=== PATIENT | male | born 1935 | race Caucasian/White ===

== ENCOUNTER 2017-11-03 23:48 | Inpatient (IN) | payer MEDICARE, BC ==
[2017-11-04] MEDS ORDERED: PIPERACILLIN-TAZOBACTAM 3.375 GM in DEXTROSE/WATER 1 50ML.BAG IVPB STA (00:07)
[2017-11-04] MEDS ORDERED: ACETAMINOPHEN TAB 500 MG TAB PO STA (00:07)
[2017-11-04] MEDS ORDERED: ONDANSETRON 4 MG in SODIUM CHLORIDE 0.9% 50 ML IVPB ONE (00:10)
[2017-11-04] MEDS ORDERED: ONDANSETRON 4 MG/2 ML VIAL IVP STA (00:16)
--- NOTE | 2017-11-04 00:22 | ED ---
General Adult HPI - General Chief complaint: Upper Respiratory Infection Stated complaint: Flu Symptoms Time Seen by Provider: 11/03/17 23:50 Source: patient, family Mode of arrival: wheelchair Limitations: no limitations - History of Present Illness Initial comments: 82 years old male been coughing he had a fever for 102.5 at home today he was shaking he is on a antibiotics for respiratory tract infection he been using Levaquin for last 2 days today he started throwing up he vomited in the ER few times in my presence is current call from his primary care physician that his electrolytes are back she needs to come to the hospital and he was advised to drink some Gatorade. He denies any headache no chest pain no shortness of breath he has been coughing he has no pleuritic chest pain he denies any abdominal pain though he threw up several times no frequency urgency dysuria no symptoms of TIA or CVA. - Related Data Home Medications Medication Instructions Recorded Confirmed Gabapentin [Neurontin] 1 tab PO DAILY 11/03/17 11/03/17 Triamterene-Hctz 37.5-25Mg 1 tab PO DAILY 11/03/17 11/03/17 [Dyazide 37.5-25 Capsule] amLODIPine [Norvasc] 1 tab PO DAILY 11/03/17 11/03/17 glipiZIDE [Glucotrol] 1 tab PO DAILY 11/03/17 11/03/17 Allergies Allergy/AdvReac Type Severity Reaction Status Date / Time No Known Allergies Allergy Verified 11/03/17 23:50 Review of Systems ROS Statement: Those systems with pertinent positive or pertinent negative responses have been documented in the HPI. ROS Other: All systems not noted in ROS Statement are negative. Past Medical History Past Medical History: Diabetes Mellitus, Hypertension History of Any Multi-Drug Resistant Organisms: None Reported Past Surgical History: Back Surgery Past Psychological History: No Psychological Hx Reported Smoking Status: Never smoker Past Alcohol Use History: None Reported Past Drug Use History: None Reported General Exam - General Exam Comments Initial Comments: General: The patient is awake and he has a tremor is consistent with a Parkinson's his GCS is 15, he is hard of hearing Skin: Skin is warm and dry and no rashes or lesions are noted. Eye: Pupils are equal, round and reactive to light, extra-ocular movements are intact; there is normal conjunctiva bilaterally. Ears, nose, mouth and throat: membranes are dry Neck: The neck is supple, there is no tenderness or JVD. Cardiovascular: There is a regular rate and rhythm. No murmur, rub or gallop is appreciated. Respiratory: To auscultation bilateral, decrease breath sounds bilaterally Gastrointestinal: Soft, non-distended, non-tender abdomen without masses or organomegaly noted. There is no rebound or guarding present. Bowel sounds are unremarkable. Back: There is no tenderness to palpation in the midline. There is no obvious deformity. Musculoskeletal: Normal ROM, no tenderness, There is no pedal edema. There is no calf tenderness or swelling. No cords were appreciated. Neurological: CN II-XII intact, Cranial nerves III through XII are intact. There are no obvious motor or sensory deficits. Coordination appears grossly intact. Speech is normal. Psychiatric: Cooperative, appropriate mood & affect, normal judgment. Limitations: no limitations Course Vital Signs 11/03/17 11/04/17 23:50 00:30 Temperature 96.9 F L 99.0 F Pulse Rate 71 Respiratory 18 Rate Blood Pressure 172/76 O2 Sat by Pulse 97 Oximetry EKG is junctional rhythm and fortunately this EKG, also artifacts patient has a Parkinson's any other tremor quite severe during EKG, this artifacts is hard to interpret this EKG no clear ST elevation noticed in this EKG lead V5 and V4 V5 and V6 are within normal range we've and V2 and V3 the normal range having difficulty interpreting lead 3 and lead aVF because of the artifacts Patient's labs are reviewed white count is normal his sodium is 120 and his lactate is 2.2 is positive for the flu a and he'll be getting for so the Tamiflu now, he be admitted considering his dehydration and hyponatremia to Dr. Gregorio's service - Reevaluation(s) Reevaluation #1: Patient had a fever off one or 2.5 at home patient has blood culture and the urine culture , after the cultures patient has been started on empiric antibiotics, will continue the IV normal saline hopefully that will get of the hyponatremia normalized. 11/04/17 01:14 Medical Decision Making - Lab Data Result diagrams: 11/04/17 00:21 11/04/17 00:21 Lab Results 11/04/17 11/04/17 11/04/17 Range/Units 00:21 00:21 00:21 WBC 6.2 (3.8-10.6) k/uL RBC 4.29 L (4.30-5.90) m/uL Hgb 12.7 L (13.0-17.5) gm/dL Hct 35.2 L (39.0-53.0) % MCV 82.0 (80.0-100.0) fL MCH 29.6 (25.0-35.0) pg MCHC 36.1 (31.0-37.0) g/dL RDW 12.1 (11.5-15.5) % Plt Count 196 (150-450) k/uL Neutrophils % 82 % Lymphocytes % 9 % Monocytes % 7 % Eosinophils % 0 % Basophils % 0 % Neutrophils # 5.1 (1.3-7.7) k/uL Lymphocytes # 0.5 L (1.0-4.8) k/uL Monocytes # 0.4 (0-1.0) k/uL Eosinophils # 0.0 (0-0.7) k/uL Basophils # 0.0 (0-0.2) k/uL Hyperchromasia Slight PT (9.0-12.0) sec INR (<1.2) APTT (22.0-30.0) sec Sodium 120 L* (137-145) mmol/L Potassium 3.3 L (3.5-5.1) mmol/L Chloride 82 L (98-107) mmol/L Carbon Dioxide 22 (22-30) mmol/L Anion Gap 16 mmol/L BUN 21 H (9-20) mg/dL Creatinine 0.80 (0.66-1.25) mg/dL Est GFR (MDRD) Af Amer >60 (>60 ml/min/1.73 sqM) Est GFR (MDRD) Non-Af >60 (>60 ml/min/1.73 sqM) Glucose 160 H (74-99) mg/dL Plasma Lactic Acid Rivas 2.2 H* (0.7-2.0) mmol/L Calcium 9.0 (8.4-10.2) mg/dL Total Bilirubin 0.7 (0.2-1.3) mg/dL AST 59 (17-59) U/L ALT 45 (21-72) U/L Alkaline Phosphatase 62 (38-126) U/L Total Protein 7.0 (6.3-8.2) g/dL Albumin 4.2 (3.5-5.0) g/dL Urine Color Urine Appearance (Clear) Urine pH (5.0-8.0) Ur Specific Cedar (1.001-1.035) Urine Protein (Negative) Urine Glucose (UA) (Negative) Urine Ketones (Negative) Urine Blood (Negative) Urine Nitrite (Negative) Urine Bilirubin (Negative) Urine Urobilinogen (<2.0) mg/dL Ur Leukocyte Esterase (Negative) Urine RBC (0-5) /hpf Urine WBC (0-5) /hpf Hyaline Casts (0-2) /lpf Granular Casts (0) /lpf Urine Mucus (None) /hpf Influenza Type A RNA (Not Detectd) Influenza Type B (PCR) (Not Detectd) Group A Strep Rapid (Negative) 11/04/17 11/04/17 11/04/17 Range/Units 00:21 00:21 00:21 WBC (3.8-10.6) k/uL RBC (4.30-5.90) m/uL Hgb (13.0-17.5) gm/dL Hct (39.0-53.0) % MCV (80.0-100.0) fL MCH (25.0-35.0) pg MCHC (31.0-37.0) g/dL RDW (11.5-15.5) % Plt Count (150-450) k/uL Neutrophils % % Lymphocytes % % Monocytes % % Eosinophils % % Basophils % % Neutrophils # (1.3-7.7) k/uL Lymphocytes # (1.0-4.8) k/uL Monocytes # (0-1.0) k/uL Eosinophils # (0-0.7) k/uL Basophils # (0-0.2) k/uL Hyperchromasia PT 10.5 (9.0-12.0) sec INR 1.1 (<1.2) APTT 28.9 (22.0-30.0) sec Sodium (137-145) mmol/L Potassium (3.5-5.1) mmol/L Chloride (98-107) mmol/L Carbon Dioxide (22-30) mmol/L Anion Gap mmol/L BUN (9-20) mg/dL Creatinine (0.66-1.25) mg/dL Est GFR (MDRD) Af Amer (>60 ml/min/1.73 sqM) Est GFR (MDRD) Non-Af (>60 ml/min/1.73 sqM) Glucose (74-99) mg/dL Plasma Lactic Acid Rivas (0.7-2.0) mmol/L Calcium (8.4-10.2) mg/dL Total Bilirubin (0.2-1.3) mg/dL AST (17-59) U/L ALT (21-72) U/L Alkaline Phosphatase (38-126) U/L Total Protein (6.3-8.2) g/dL Albumin (3.5-5.0) g/dL Urine Color Urine Appearance (Clear) Urine pH (5.0-8.0) Ur Specific Cedar (1.001-1.035) Urine Protein (Negative) Urine Glucose (UA) (Negative) Urine Ketones (Negative) Urine Blood (Negative) Urine Nitrite (Negative) Urine Bilirubin (Negative) Urine Urobilinogen (<2.0) mg/dL Ur Leukocyte Esterase (Negative) Urine RBC (0-5) /hpf Urine WBC (0-5) /hpf Hyaline Casts (0-2) /lpf Granular Casts (0) /lpf Urine Mucus (None) /hpf Influenza Type A RNA Detected H (Not Detectd) Influenza Type B (PCR) Not Detected (Not Detectd) Group A Strep Rapid Negative (Negative) 11/04/17 Range/Units 00:42 WBC (3.8-10.6) k/uL RBC (4.30-5.90) m/uL Hgb (13.0-17.5) gm/dL Hct (39.0-53.0) % MCV (80.0-100.0) fL MCH (25.0-35.0) pg MCHC (31.0-37.0) g/dL RDW (11.5-15.5) % Plt Count (150-450) k/uL Neutrophils % % Lymphocytes % % Monocytes % % Eosinophils % % Basophils % % Neutrophils # (1.3-7.7) k/uL Lymphocytes # (1.0-4.8) k/uL Monocytes # (0-1.0) k/uL Eosinophils # (0-0.7) k/uL Basophils # (0-0.2) k/uL Hyperchromasia PT (9.0-12.0) sec INR (<1.2) APTT (22.0-30.0) sec Sodium (137-145) mmol/L Potassium (3.5-5.1) mmol/L Chloride (98-107) mmol/L Carbon Dioxide (22-30) mmol/L Anion Gap mmol/L BUN (9-20) mg/dL Creatinine (0.66-1.25) mg/dL Est GFR (MDRD) Af Amer (>60 ml/min/1.73 sqM) Est GFR (MDRD) Non-Af (>60 ml/min/1.73 sqM) Glucose (74-99) mg/dL Plasma Lactic Acid Rivas (0.7-2.0) mmol/L Calcium (8.4-10.2) mg/dL Total Bilirubin (0.2-1.3) mg/dL AST (17-59) U/L ALT (21-72) U/L Alkaline Phosphatase (38-126) U/L Total Protein (6.3-8.2) g/dL Albumin (3.5-5.0) g/dL Urine Color Yellow Urine Appearance Clear (Clear) Urine pH 6.0 (5.0-8.0) Ur Specific Cedar 1.015 (1.001-1.035) Urine Protein 2+ H (Negative) Urine Glucose (UA) 2+ H (Negative) Urine Ketones 1+ H (Negative) Urine Blood Moderate H (Negative) Urine Nitrite Negative (Negative) Urine Bilirubin Negative (Negative) Urine Urobilinogen <2.0 (<2.0) mg/dL Ur Leukocyte Esterase Negative (Negative) Urine RBC 2 (0-5) /hpf Urine WBC 1 (0-5) /hpf Hyaline Casts 1 (0-2) /lpf Granular Casts 81 (0) /lpf Urine Mucus Rare H (None) /hpf Influenza Type A RNA (Not Detectd) Influenza Type B (PCR) (Not Detectd) Group A Strep Rapid (Negative) Disposition Clinical Impression: Fever, Influenza A, Intractable nausea and vomiting, Hyponatremia Disposition: ADMITTED IP TO THIS HOSP Condition: Good Referrals: Master Ochoa MD [Primary Care Provider] - 1-2 days
[2017-11-04 00:42] LABS: Basophils % (A) 0 %; Eosinophils % (A) 0 %; HCT 35.2 % (39.0-53.0); HGB 12.7 gm/dL (13.0-17.5); Hyperchromasia Slight; Lymphocytes # (A) 0.5 k/uL (1.0-4.8); Lymphocytes % (A) 9 %; MCH 29.6 pg (25.0-35.0); MCHC 36.1 g/dL (31.0-37.0); Mean Platelet Volume 7.6; Monocytes # (A) 0.4 k/uL (0-1.0); Monocytes % (A) 7 %; Neutrophils # (A) 5.1 k/uL (1.3-7.7); Neutrophils % (A) 82 %; Platelet Count 196 k/uL (150-450); RBC 4.29 m/uL (4.30-5.90); RDW 12.1 % (11.5-15.5); WBC 6.2 k/uL (3.8-10.6)
[2017-11-04 00:51] LABS: ALT 45 U/L (21-72); AST 59 U/L (17-59); Albumin 4.2 g/dL (3.5-5.0); Alkaline Phosphatase 62 U/L (38-126); Anion Gap 16 mmol/L; Blood Urea Nitrogen 21 mg/dL (9-20); Carbon Dioxide 22 mmol/L (22-30); Chloride 82 mmol/L (98-107); Glucose 160 mg/dL (74-99); Potassium 3.3 mmol/L (3.5-5.1); Total Bilirubin 0.7 mg/dL (0.2-1.3)
[2017-11-04] MEDS: SODIUM CHLORIDE 0.9% 500 ML IV SCH ×2 (00:51→01:50)
[2017-11-04 00:54] LABS: INR 1.1 (<1.2); Partial Thromboplastin Time 28.9 sec (22.0-30.0); Prothrombin Time 10.5 sec (9.0-12.0)
[2017-11-04 00:59] LABS: Sodium 120 mmol/L (137-145)
[2017-11-04 01:00] LABS: Appearance,Urine Clear (Clear); Bilirubin,Urine Negative (Negative); Blood,Urine Moderate (Negative); Color,Urine Yellow; Glucose,Urine (UA) 2+ (Negative); Granular Casts,Urine 81 /lpf (0); Hyaline Casts,Urine 1 /lpf (0-2); Ketones,Urine 1+ (Negative); Leukocyte Esterase,Urine Negative (Negative); Mucus,Urine Rare /hpf; Protein,Urine 2+ (Negative); RBC,Urine 2 /hpf (0-5); Specific Gravity,Urine 1.015 (1.001-1.035); Urobilinogen,Urine <2.0 mg/dL (<2.0); WBC,Urine 1 /hpf (0-5)
[2017-11-04] MEDS ORDERED: OSELTAMIVIR 75 MG CAP PO STA (01:05)
--- NOTE | 2017-11-04 01:17 | XR ---
EXAMINATION TYPE: XR chest 2V DATE OF EXAM: 11/04/2017 COMPARISON: NONE HISTORY: Fever TECHNIQUE: Frontal and lateral views of the chest are obtained. FINDINGS: There is no heart failure nor confluent pneumonic infiltrate. Costophrenic angles are nilton r. Thoracic aorta is atheromatous. There is spurring in the thoracic spine. IMPRESSION: No active cardiopulmonary disease. Normal heart.
[2017-11-04] MEDS ORDERED: NALOXONE 0.4 MG/ML 1 ML VIAL IV PRN (01:19)
--- NOTE | 2017-11-04 01:19 | XR ---
EXAMINATION TYPE: XR KUB DATE OF EXAM: 11/04/2017 COMPARISON: NONE HISTORY: Fever TECHNIQUE: 2 views FINDINGS: Bowel gas pattern is normal. There is no sign of intestinal obstruction or pneumoperitoneum . There are no pathologic calcifications. Lung bases are clear. There is no sign of a mass. IMPRESSION: Nonacute abdomen.
[2017-11-04] MEDS ORDERED: ONDANSETRON 4 MG/2 ML VIAL IVP PRN (01:26)
[2017-11-04] MEDS ORDERED: ACETAMINOPHEN TAB 325 MG TAB PO PRN (01:28)
[2017-11-04 02:44] VITALS: BMI 24.7
[2017-11-04 07:32] LABS: Glucose,Whole Blood 119 mg/dL (75-99)
[2017-11-04] MEDS: cefTRIAXone IN SWFI 2,000 MG/20 ML SYRINGE IVP SCH (07:59)
[2017-11-04] MEDS: glipiZIDE 5 MG TAB PO SCH (07:59)
[2017-11-04] MEDS: OSELTAMIVIR 75 MG CAP PO SCH ×2 (07:59→21:19)
[2017-11-04] MEDS: GABAPENTIN 100 MG CAP PO SCH (07:59)
[2017-11-04] MEDS ORDERED: amLODIPine 10 MG TAB PO SCH (09:00)
[2017-11-04] MEDS ORDERED: TRIAMTERENE-HCTZ 37.5-25MG 1 EACH CAP PO SCH (09:00)
[2017-11-04 12:14] LABS: Glucose,Whole Blood 100 mg/dL (75-99)
[2017-11-04 15:22] LABS: Anion Gap 11 mmol/L; Blood Urea Nitrogen 20 mg/dL (9-20); Calcium 8.5 mg/dL (8.4-10.2); Carbon Dioxide 24 mmol/L (22-30); Chloride 85 mmol/L (98-107); Glucose 141 mg/dL (74-99); Potassium 3.8 mmol/L (3.5-5.1)
[2017-11-04 15:24] LABS: Sodium 120 mmol/L (137-145)
[2017-11-04 17:08] LABS: Glucose,Whole Blood 137 mg/dL (75-99)
[2017-11-04] MEDS: HEPARIN SODIUM,PORCINE 5,000 UNIT/ML 1 ML VIAL SQ SCH (21:18)
[2017-11-04] MEDS: amLODIPine 10 MG TAB PO SCH (21:19)
[2017-11-04] MEDS: TRIAMTERENE-HCTZ 37.5-25MG 1 EACH CAP PO SCH (21:19)
[2017-11-04 21:35] LABS: Glucose,Whole Blood 146 mg/dL (75-99)
--- NOTE | 2017-11-04 22:36 | P.HPIM ---
History of Present Illness H&P Date: 11/04/17 Chief Complaint: Fever Patient is a 82-year-old male with a known history of hypertension, diabetes type 2 came to the hospital with complaints of cough and fever/shaking and fever 102.5 at home today. he is on a antibiotics for respiratory tract infection he been using Levaquin for last 2 days. today he started throwing up he vomited in the ER few times. He had a call from his primary care physician that his electrolytes are back she needs to come to the hospital and he was advised to drink some Gatorade. He denies any headache no chest pain no shortness of breath he has been coughing he has no pleuritic chest pain he denies any abdominal pain though he threw up several times no frequency urgency dysuria no symptoms of TIA or CVA. Chest x-ray showed no acute cardio pulmonary process KUB x-ray showed no acute abdominal EKG showed junctional rhythm with premature ventricle contractions Laboratory data showed sodium 120 Potassium 3.3 Lactic acid 2.2 Review of Systems Constitutional: Patient does have fever and chills and generalized weakness no weight loss . Cardiovascular: Patient denies any chest pain or short of breath no palpitations. Respiratory: patient denied any cough is from production. No shortness of breath Neurologic: Patient denied any numbness or tingling headache. Musculoskeletal: Patient denies any complaints of joint swelling or deformity. Gastrointestinal. Patient does have nausea vomiting. No diarrhea Skin: Negative Psychiatric: Negative Endocrine: No heat or cold intolerance. No recent weight gain. Genitourinary: No dysuria or hematuria. All other 14 point ROS negative except the above Past Medical History Past Medical History: Diabetes Mellitus, Hypertension History of Any Multi-Drug Resistant Organisms: None Reported Past Surgical History: Back Surgery Past Psychological History: No Psychological Hx Reported Smoking Status: Never smoker Past Alcohol Use History: None Reported Past Drug Use History: None Reported Medications and Allergies Home Medications Medication Instructions Recorded Confirmed Type Triamterene-Hctz 37.5-25Mg 1 tab PO HS 11/03/17 11/04/17 History [Dyazide 37.5-25 Capsule] Levofloxacin [Levaquin] 500 mg PO DAILY 11/04/17 11/04/17 History amLODIPine BES/OLMESARTAN MED 1 tab PO HS 11/04/17 11/04/17 History [amLODIPine BES/OLMESARTAN MED 10-20 mg] glipiZIDE XL [Glucotrol Xl] 5 mg PO QAM 11/04/17 11/04/17 History Allergies Allergy/AdvReac Type Severity Reaction Status Date / Time No Known Allergies Allergy Verified 11/04/17 12:38 Physical Exam Vitals: Vital Signs Temp Pulse Pulse Resp BP BP Pulse Ox 11/04/17 06:14 96.9 F L 68 16 147/68 97 11/04/17 02:00 16 11/04/17 01:48 98.1 F 74 16 149/69 99 11/04/17 00:30 99.0 F 11/03/17 23:50 96.9 F L 71 18 172/76 97 Intake and Output 11/04/17 11/04/17 11/04/17 06:59 14:59 22:59 Output Total 450 Balance -450 Output: Urine 450 Other: Voiding Method Urinal # Voids 4 Weight 74 kg PHYSICAL EXAMINATION: Patient is lying in the bed comfortably, no acute distress, awake alert and oriented.. HEENT: Normocephalic. Neck is supple. Pupils reactive. Nostrils clear. Oral cavity is moist. Ears reveal no drainage. Neck reveals no JVD, carotid bruits, or thyromegaly. CHEST EXAMINATION: Trachea is central. Symmetrical expansion. Decreased breath sounds bilateral basally CARDIAC: Normal S1, S2 with no gallops. No murmurs ABDOMEN: Soft. Bowel sounds normal. No organomegaly. No abdominal bruits. Extremities: reveal no edema. No clubbing or cyanosis Neurologically awake, alert, oriented x3 with well-coordinated movements. No focal deficits noted Skin: No rash or skin lesions. Psychiatric: Coperative. Nonsuicidal Musculoskeletal: No joint swelling or deformity. Normal range of motion. Results CBC & Chem 7: 11/04/17 00:21 11/04/17 04:13 Labs: Abnormal Lab Results - Last 24 Hours (Table) 11/04/17 11/04/17 11/04/17 Range/Units 00:21 00:21 00:21 RBC 4.29 L (4.30-5.90) m/uL Hgb 12.7 L (13.0-17.5) gm/dL Hct 35.2 L (39.0-53.0) % Lymphocytes # 0.5 L (1.0-4.8) k/uL Sodium 120 L* (137-145) mmol/L Potassium 3.3 L (3.5-5.1) mmol/L Chloride 82 L (98-107) mmol/L BUN 21 H (9-20) mg/dL Glucose 160 H (74-99) mg/dL POC Glucose (mg/dL) (75-99) mg/dL Plasma Lactic Acid Rivas 2.2 H* (0.7-2.0) mmol/L Urine Protein (Negative) Urine Glucose (UA) (Negative) Urine Ketones (Negative) Urine Blood (Negative) Urine Mucus (None) /hpf Influenza Type A RNA (Not Detectd) 11/04/17 11/04/17 11/04/17 Range/Units 00:21 00:42 07:26 RBC (4.30-5.90) m/uL Hgb (13.0-17.5) gm/dL Hct (39.0-53.0) % Lymphocytes # (1.0-4.8) k/uL Sodium (137-145) mmol/L Potassium (3.5-5.1) mmol/L Chloride (98-107) mmol/L BUN (9-20) mg/dL Glucose (74-99) mg/dL POC Glucose (mg/dL) 119 H (75-99) mg/dL Plasma Lactic Acid Rivas (0.7-2.0) mmol/L Urine Protein 2+ H (Negative) Urine Glucose (UA) 2+ H (Negative) Urine Ketones 1+ H (Negative) Urine Blood Moderate H (Negative) Urine Mucus Rare H (None) /hpf Influenza Type A RNA Detected H (Not Detectd) 11/04/17 Range/Units 12:11 RBC (4.30-5.90) m/uL Hgb (13.0-17.5) gm/dL Hct (39.0-53.0) % Lymphocytes # (1.0-4.8) k/uL Sodium (137-145) mmol/L Potassium (3.5-5.1) mmol/L Chloride (98-107) mmol/L BUN (9-20) mg/dL Glucose (74-99) mg/dL POC Glucose (mg/dL) 100 H (75-99) mg/dL Plasma Lactic Acid Rivas (0.7-2.0) mmol/L Urine Protein (Negative) Urine Glucose (UA) (Negative) Urine Ketones (Negative) Urine Blood (Negative) Urine Mucus (None) /hpf Influenza Type A RNA (Not Detectd) Microbiology - Last 24 Hours (Table) 11/04/17 00:42 Urine Culture - Preliminary Urine,Voided 11/04/17 00:21 Group A Strep Throat Culture - Preliminary Throat Thrombosis Risk Factor Assmnt - DVT/VTE Prophylaxis DVT/VTE Prophylaxis: Pharmacologic Prophylaxis ordered - Choose All That Apply Each Factor Represents 1 point: Abnormal pulmonary function (COPD) Each Risk Factor Represents 3 Points: Age 75 years or older Thrombosis Risk Factor Assessment Total Risk Factor Score: 4 Thrombosis Risk Factor Assessment Level: Moderate Risk Assessment and Plan Assessment: Acute influenza A infection Sepsis/sepsis secondary to acute viral illness Intractable nausea vomiting likely due to infection and possible gastritis Hyponatremia sodium 120 likely hypovolemic Lactic acidosis improved with hydration Hypertension uncontrolled Diabetes type 2 DVT prophylaxis Plan: Patient will be continued on IV hydration and symptomatic management for nausea and vomiting. We will follow up sodium level and continue the home medications. Patient was started on Tamiflu. Supportive care. Further recommendations based on the clinical course. Time with Patient: Greater than 30
[2017-11-04] MEDS: SODIUM CHLORIDE 0.9% 1,000 ML IV SCH (23:35)
[2017-11-05 07:13] LABS: Glucose,Whole Blood 136 mg/dL (75-99)
[2017-11-05 09:27] LABS: Anion Gap 10 mmol/L; Blood Urea Nitrogen 14 mg/dL (9-20); Calcium 8.6 mg/dL (8.4-10.2); Carbon Dioxide 26 mmol/L (22-30); Chloride 88 mmol/L (98-107); Glucose 214 mg/dL (74-99); Potassium 3.4 mmol/L (3.5-5.1); Sodium 124 mmol/L (137-145)
[2017-11-05 09:28] LABS: Basophils % (A) 0 %; Eosinophils % (A) 0 %; HCT 33.3 % (39.0-53.0); HGB 11.8 gm/dL (13.0-17.5); Lymphocytes % (A) 19 %; MCHC 35.4 g/dL (31.0-37.0); MCV 81.9 fL (80.0-100.0); Mean Platelet Volume 7.7; Monocytes # (A) 0.3 k/uL (0-1.0); Monocytes % (A) 7 %; Neutrophils # (A) 3.7 k/uL (1.3-7.7); Neutrophils % (A) 72 %; Platelet Count 155 k/uL (150-450); RBC 4.06 m/uL (4.30-5.90); RDW 12.2 % (11.5-15.5); WBC 5.1 k/uL (3.8-10.6)
[2017-11-05] MEDS: SODIUM CHLORIDE 0.9% 1,000 ML IV SCH ×2 (10:02→17:30)
[2017-11-05] MEDS: HEPARIN SODIUM,PORCINE 5,000 UNIT/ML 1 ML VIAL SQ SCH ×2 (10:03→20:32)
[2017-11-05] MEDS: GABAPENTIN 100 MG CAP PO SCH (10:03)
[2017-11-05] MEDS: glipiZIDE 5 MG TAB PO SCH (10:03)
[2017-11-05] MEDS: cefTRIAXone IN SWFI 2,000 MG/20 ML SYRINGE IVP SCH (10:03)
[2017-11-05] MEDS: OSELTAMIVIR 75 MG CAP PO SCH ×2 (10:04→20:32)
[2017-11-05] MEDS ORDERED: Potassium Replacement Protocol 1 EACH MISC MISCELLANE PRN (11:22)
[2017-11-05 12:06] LABS: Glucose,Whole Blood 120 mg/dL (75-99)
[2017-11-05] MEDS: POTASSIUM CHLORIDE ER 20 MEQ TAB.ER PO SCH ×2 (13:53→15:11)
[2017-11-05 17:13] LABS: Glucose,Whole Blood 110 mg/dL (75-99)
[2017-11-05] MEDS: amLODIPine 10 MG TAB PO SCH (20:33)
[2017-11-05] MEDS: TRIAMTERENE-HCTZ 37.5-25MG 1 EACH CAP PO SCH (20:33)
[2017-11-05 21:41] LABS: Glucose,Whole Blood 156 mg/dL (75-99)
[2017-11-06] MEDS: SODIUM CHLORIDE 0.9% 1,000 ML IV SCH ×4 (05:20→19:45)
[2017-11-06 07:38] LABS: Glucose,Whole Blood 130 mg/dL (75-99)
[2017-11-06] MEDS: HEPARIN SODIUM,PORCINE 5,000 UNIT/ML 1 ML VIAL SQ SCH ×2 (08:45→20:54)
[2017-11-06] MEDS: OSELTAMIVIR 75 MG CAP PO SCH ×2 (08:45→20:54)
[2017-11-06] MEDS: GABAPENTIN 100 MG CAP PO SCH (08:45)
[2017-11-06] MEDS: glipiZIDE 5 MG TAB PO SCH (08:45)
[2017-11-06] MEDS ORDERED: BISACODYL 10 MG SUPP RECTAL STA (08:52)
[2017-11-06] MEDS: cefTRIAXone IN SWFI 2,000 MG/20 ML SYRINGE IVP SCH (09:03)
[2017-11-06] MEDS ORDERED: BISACODYL 5 MG TABLET.DR PO PRN (09:06)
[2017-11-06 11:21] LABS: Anion Gap 9 mmol/L; Blood Urea Nitrogen 14 mg/dL (9-20); Calcium 8.7 mg/dL (8.4-10.2); Carbon Dioxide 27 mmol/L (22-30); Chloride 98 mmol/L (98-107); Glucose 125 mg/dL (74-99); Potassium 3.4 mmol/L (3.5-5.1); Sodium 134 mmol/L (137-145)
[2017-11-06 11:53] LABS: Glucose,Whole Blood 119 mg/dL (75-99)
[2017-11-06 12:00] LABS: Basophils % (A) 0 %; Eosinophils % (A) 1 %; HCT 32.9 % (39.0-53.0); HGB 11.6 gm/dL (13.0-17.5); Lymphocytes # (A) 1.2 k/uL (1.0-4.8); Lymphocytes % (A) 18 %; MCH 29.5 pg (25.0-35.0); MCHC 35.4 g/dL (31.0-37.0); MCV 83.4 fL (80.0-100.0); Mean Platelet Volume 7.4; Monocytes # (A) 0.5 k/uL (0-1.0); Monocytes % (A) 8 %; Neutrophils # (A) 4.8 k/uL (1.3-7.7); Neutrophils % (A) 72 %; Platelet Count 161 k/uL (150-450); RBC 3.94 m/uL (4.30-5.90); RDW 12.4 % (11.5-15.5); WBC 6.6 k/uL (3.8-10.6)
[2017-11-06] MEDS ORDERED: Magnesium Replacement Protocol 1 EACH MISC MISCELLANE PRN (12:20)
[2017-11-06] MEDS ORDERED: Potassium Replacement Protocol 1 EACH MISC MISCELLANE PRN ×2 (12:20→12:53)
[2017-11-06] MEDS: POTASSIUM CHLORIDE ER 20 MEQ TAB.ER PO SCH ×2 (14:50→15:47)
[2017-11-06 17:07] LABS: Glucose,Whole Blood 105 mg/dL (75-99)
[2017-11-06] MEDS: amLODIPine 10 MG TAB PO SCH (20:54)
[2017-11-06 21:25] LABS: Glucose,Whole Blood 153 mg/dL (75-99)
[2017-11-06 22:56] VITALS: RESP 18
[2017-11-07] MEDS: ACETAMINOPHEN TAB 325 MG TAB PO PRN ×2 (04:36→10:08)
[2017-11-07 06:20] VITALS: BP 163/85; PULSE 89; TEMP 98.5
[2017-11-07 07:40] LABS: Glucose,Whole Blood 159 mg/dL (75-99)
[2017-11-07 08:39] LABS: Anion Gap 11 mmol/L; Blood Urea Nitrogen 13 mg/dL (9-20); Carbon Dioxide 23 mmol/L (22-30); Chloride 101 mmol/L (98-107); Glucose 161 mg/dL (74-99); Potassium 3.6 mmol/L (3.5-5.1); Sodium 135 mmol/L (137-145)
[2017-11-07] MEDS: GABAPENTIN 100 MG CAP PO SCH (08:39)
[2017-11-07] MEDS: glipiZIDE 5 MG TAB PO SCH (08:39)
[2017-11-07] MEDS: HEPARIN SODIUM,PORCINE 5,000 UNIT/ML 1 ML VIAL SQ SCH (08:39)
[2017-11-07] MEDS: OSELTAMIVIR 75 MG CAP PO SCH (08:39)
[2017-11-07] MEDS: cefTRIAXone IN SWFI 2,000 MG/20 ML SYRINGE IVP SCH (08:39)
[2017-11-07 12:09] LABS: Glucose,Whole Blood 113 mg/dL (75-99)
--- NOTE | 2017-11-07 22:59 | P.PN ---
Subjective Progress Note Date: 11/05/17 Principal diagnosis: Acute influenza A infection Patient is a 82-year-old male with a known history of hypertension, diabetes type 2 came to the hospital with complaints of cough and fever/shaking and fever 102.5 at home today. he is on a antibiotics for respiratory tract infection he been using Levaquin for last 2 days. today he started throwing up he vomited in the ER few times. He had a call from his primary care physician that his electrolytes are back she needs to come to the hospital and he was advised to drink some Gatorade. He denies any headache no chest pain no shortness of breath he has been coughing he has no pleuritic chest pain he denies any abdominal pain though he threw up several times no frequency urgency dysuria no symptoms of TIA or CVA. Chest x-ray showed no acute cardio pulmonary process KUB x-ray showed no acute abdominal EKG showed junctional rhythm with premature ventricle contractions Laboratory data showed sodium 120 Potassium 3.3 Lactic acid 2.2 On 11/05/2017 Patient did improve symptomatically. Otherwise feels generally weak. Complains of nausea area of vomiting. Sodium level improved to 124. Continues to be on IV hydration. Lactic acidosis improved. No other acute overnight issues. Not tolerating diet very well All other review of systems negative except the above. Patient is a poor historian Current medications reviewed Objective - Vital Signs Vital signs: Vital Signs Temp 97.0 F L 11/05/17 15:00 Pulse 68 11/05/17 15:00 Resp 16 11/05/17 15:00 BP 148/69 11/05/17 15:00 Pulse Ox 96 11/05/17 15:00 Intake & Output 11/04/17 11/05/17 11/05/17 18:59 06:59 18:59 Intake Total 480 240 720 Output Total 2500 900 1490 Balance -2019 -770 Intake: Oral 480 240 720 Output: Urine 2500 900 1490 Other: Voiding Method Urinal Urinal Urinal # Voids 3 2 6 - Exam Patient is lying in the bed comfortably, no acute distress, awake alert and oriented.., Communicates slowly. HEENT: Normocephalic. Neck is supple. Pupils reactive. Nostrils clear. Oral cavity is moist. Ears reveal no drainage. Neck reveals no JVD, carotid bruits, or thyromegaly. CHEST EXAMINATION: Trachea is central. Symmetrical expansion. Decreased breath sounds bilateral basally CARDIAC: Normal S1, S2 with no gallops. No murmurs ABDOMEN: Soft. Bowel sounds normal. No organomegaly. No abdominal bruits. Extremities: reveal no edema. No clubbing or cyanosis Neurologically awake, alert, oriented x3 with well-coordinated movements. No focal deficits noted Skin: No rash or skin lesions. Psychiatric: Coperative. Nonsuicidal Musculoskeletal: No joint swelling or deformity. Normal range of motion. - Labs CBC & Chem 7: 11/06/17 10:50 11/07/17 07:26 Labs: Abnormal Lab Results - Last 24 Hours (Table) 11/04/17 11/05/17 11/05/17 Range/Units 21:14 07:09 09:01 RBC 4.06 L (4.30-5.90) m/uL Hgb 11.8 L (13.0-17.5) gm/dL Hct 33.3 L (39.0-53.0) % Sodium (137-145) mmol/L Potassium (3.5-5.1) mmol/L Chloride (98-107) mmol/L Glucose (74-99) mg/dL POC Glucose (mg/dL) 146 H 136 H (75-99) mg/dL 11/05/17 11/05/17 11/05/17 Range/Units 09:01 12:01 17:10 RBC (4.30-5.90) m/uL Hgb (13.0-17.5) gm/dL Hct (39.0-53.0) % Sodium 124 L (137-145) mmol/L Potassium 3.4 L (3.5-5.1) mmol/L Chloride 88 L (98-107) mmol/L Glucose 214 H (74-99) mg/dL POC Glucose (mg/dL) 120 H 110 H (75-99) mg/dL Microbiology - Last 24 Hours (Table) 11/04/17 00:42 Urine Culture - Final Urine,Voided 11/04/17 00:21 Blood Culture - Preliminary Blood No Growth after 24 hours Assessment and Plan Assessment: Acute influenza A infection Sepsis/sepsis secondary to acute viral illness. Improved Intractable nausea vomiting likely due to infection and possible gastritis Hyponatremia likely hypovolemic sodium level improved to 124 Lactic acidosis improved with hydration Hypertension uncontrolled Diabetes type 2 DVT prophylaxis Plan: Patient will be continued on IV hydration and symptomatic management for nausea and vomiting. We will follow up sodium level and continue the home medications. Patient was started on Tamiflu. Supportive care. Further recommendations based on the clinical course. Time with Patient: Greater than 30
--- NOTE | 2017-11-07 23:02 | P.PN ---
Subjective Progress Note Date: 11/06/17 Principal diagnosis: Acute influenza A infection Patient is a 82-year-old male with a known history of hypertension, diabetes type 2 came to the hospital with complaints of cough and fever/shaking and fever 102.5 at home today. he is on a antibiotics for respiratory tract infection he been using Levaquin for last 2 days. today he started throwing up he vomited in the ER few times. He had a call from his primary care physician that his electrolytes are back she needs to come to the hospital and he was advised to drink some Gatorade. He denies any headache no chest pain no shortness of breath he has been coughing he has no pleuritic chest pain he denies any abdominal pain though he threw up several times no frequency urgency dysuria no symptoms of TIA or CVA. Chest x-ray showed no acute cardio pulmonary process KUB x-ray showed no acute abdominal EKG showed junctional rhythm with premature ventricle contractions Laboratory data showed sodium 120 Potassium 3.3 Lactic acid 2.2 On 11/05/2017 Patient did improve symptomatically. Otherwise feels generally weak. Complains of nausea area of vomiting. Sodium level improved to 124. Continues to be on IV hydration. Lactic acidosis improved. No other acute overnight issues. Not tolerating diet very well 11/06/2017 Patient did improve clinically. Complaints of cough with whitish sputum. Sodium level improved to 134 today. Tolerating oral diet slowly. We will discontinue IV fluids and anticipate discharge in next 24 hours with more clinical improvement. All other review of systems negative except the above. Patient is a poor historian Current medications reviewed Objective - Vital Signs Vital signs: Vital Signs Temp 98.0 F 11/06/17 22:55 Pulse 64 11/06/17 22:55 Resp 18 11/06/17 22:55 BP 157/80 11/06/17 22:55 Pulse Ox 95 11/06/17 22:55 Intake & Output 11/06/17 11/06/17 11/07/17 06:59 18:59 06:59 Intake Total 600 720 600 Output Total 2250 1400 1600 Balance -5320 680 -1000 Intake: Oral 600 720 600 Output: Urine 2250 1400 1600 Other: Voiding Method Urinal # Voids 4 5 # Bowel Movements 1 - Exam Patient is lying in the bed comfortably, no acute distress, awake alert and oriented.., Communicates slowly. HEENT: Normocephalic. Neck is supple. Pupils reactive. Nostrils clear. Oral cavity is moist. Ears reveal no drainage. Neck reveals no JVD, carotid bruits, or thyromegaly. CHEST EXAMINATION: Trachea is central. Symmetrical expansion. Decreased breath sounds bilateral basally CARDIAC: Normal S1, S2 with no gallops. No murmurs ABDOMEN: Soft. Bowel sounds normal. No organomegaly. No abdominal bruits. Extremities: reveal no edema. No clubbing or cyanosis Neurologically awake, alert, oriented x3 with well-coordinated movements. No focal deficits noted Skin: No rash or skin lesions. Psychiatric: Coperative. Nonsuicidal Musculoskeletal: No joint swelling or deformity. Normal range of motion. - Labs CBC & Chem 7: 11/06/17 10:50 11/07/17 07:26 Labs: Abnormal Lab Results - Last 24 Hours (Table) 11/06/17 11/06/17 11/06/17 Range/Units 07:31 10:50 10:50 RBC 3.94 L (4.30-5.90) m/uL Hgb 11.6 L (13.0-17.5) gm/dL Hct 32.9 L (39.0-53.0) % Sodium 134 L (137-145) mmol/L Potassium 3.4 L (3.5-5.1) mmol/L Glucose 125 H (74-99) mg/dL POC Glucose (mg/dL) 130 H (75-99) mg/dL 11/06/17 11/06/17 11/06/17 Range/Units 11:46 17:03 20:49 RBC (4.30-5.90) m/uL Hgb (13.0-17.5) gm/dL Hct (39.0-53.0) % Sodium (137-145) mmol/L Potassium (3.5-5.1) mmol/L Glucose (74-99) mg/dL POC Glucose (mg/dL) 119 H 105 H 153 H (75-99) mg/dL Microbiology - Last 24 Hours (Table) 11/04/17 00:21 Group A Strep Throat Culture - Final Throat 11/04/17 00:21 Blood Culture - Preliminary Blood No Growth after 48 hours Assessment and Plan Assessment: Acute influenza A infection. Improved clinically Acute bronchitis Sepsis/sepsis secondary to acute viral illness. Improved Intractable nausea vomiting likely due to infection and possible gastritis Hyponatremia likely hypovolemic sodium level improved to 124--134 Lactic acidosis improved with hydration Hypertension uncontrolled Diabetes type 2 DVT prophylaxis Plan: Patient will be continued on IV hydration and symptomatic management for nausea and vomiting. We will follow up sodium level and continue the home medications. Patient was started on Tamiflu. Supportive care. Further recommendations based on the clinical course.
--- NOTE | 2017-11-07 23:06 | P.DS ---
Providers Date of admission: 11/04/17 01:23 Expected date of discharge: 11/07/17 Attending physician: Jorge A Pickens Primary care physician: Master Ochoa Hospital Course: Discharge diagnosis Acute influenza A infection. Improved clinically Acute bronchitis Sepsis/sepsis secondary to acute viral illness. Improved Intractable nausea vomiting likely due to infection and possible gastritis Hyponatremia likely hypovolemic sodium level improved to 124--134 Lactic acidosis improved with hydration Hypertension uncontrolled Diabetes type 2 DVT prophylaxis with heparin subcu Hospital course Patient is a 82-year-old male with a known history of hypertension, diabetes type 2 came to the hospital with complaints of cough and fever/shaking and fever 102.5 at home today. he is on a antibiotics for respiratory tract infection he been using Levaquin for last 2 days. today he started throwing up he vomited in the ER few times. He had a call from his primary care physician that his electrolytes are back she needs to come to the hospital and he was advised to drink some Gatorade. He denies any headache no chest pain no shortness of breath he has been coughing he has no pleuritic chest pain he denies any abdominal pain though he threw up several times no frequency urgency dysuria no symptoms of TIA or CVA. Chest x-ray showed no acute cardio pulmonary process KUB x-ray showed no acute abdominal EKG showed junctional rhythm with premature ventricle contractions Laboratory data showed sodium 120 Potassium 3.3 Lactic acid 2.2 On 11/05/2017 Patient did improve symptomatically. Otherwise feels generally weak. Complains of nausea area of vomiting. Sodium level improved to 124. Continues to be on IV hydration. Lactic acidosis improved. No other acute overnight issues. Not tolerating diet very well 11/06/2017 Patient did improve clinically. Complaints of cough with whitish sputum. Sodium level improved to 134 today. Tolerating oral diet slowly. We will discontinue IV fluids and anticipate discharge in next 24 hours with more clinical improvement. 11/07/2017 Patient did improve clinically and is tolerating oral diet. Patient did not have any bowel movement last 2 days but is having active bowel sounds. Denied any abdominal pain. No nausea vomiting or abdominal pain. Patient wants to be discharged home today otherwise clinically much improved. Patient was continued on IV hydration and symptomatic management for nausea and vomiting. Sodium level normalized. Patient was started on Tamiflu and will continue total of 10 doses. Continue the antibiotics for bronchitis and. Supportive care. Patient is stable to be discharged home. Discharge physical examination was done and vitals reviewed. Patient Condition at Discharge: Good Plan - Discharge Summary Discharge Rx Participant: Yes New Discharge Prescriptions: New Cefuroxime Axetil [Ceftin] 500 mg PO BID 4 Days #8 tab Oseltamivir [Tamiflu] 75 mg PO Q12HR #3 cap Continue Triamterene-Hctz 37.5-25Mg [Dyazide 37.5-25 Capsule] 1 tab PO HS glipiZIDE XL [Glucotrol XL] 5 mg PO QAM amLODIPine BES/OLMESARTAN MED [amLODIPine BES/OLMESARTAN MED 10-20 mg] 1 tab PO HS Discontinued Levofloxacin [Levaquin] 500 mg PO DAILY Discharge Medication List Triamterene-Hctz 37.5-25Mg [Dyazide 37.5-25 Capsule] 1 tab PO HS 11/03/17 [ History] amLODIPine BES/OLMESARTAN MED [amLODIPine BES/OLMESARTAN MED 10-20 mg] 1 tab PO HS 11/04/17 [History] glipiZIDE XL [Glucotrol XL] 5 mg PO QAM 11/04/17 [History] Cefuroxime Axetil [Ceftin] 500 mg PO BID 4 Days #8 tab 11/07/17 [Rx] Oseltamivir [Tamiflu] 75 mg PO Q12HR #3 cap 11/07/17 [Rx] Follow up Appointment(s)/Referral(s): Master Ochoa MD [Primary Care Provider] - 11/10/17 1:00 pm Patient Instructions/Handouts: Type 2 Diabetes in Adults (DC), Influenza (DC) Discharge Disposition: HOME SELF-CARE
== END 2017-11-07 16:48 | disposition home or self-care (01) | DRG 872 ==
LOC: EC 23:48 → 4MS4W 11-04 01:23
PROVIDERS: ADMIT Hospitalist; ATTEND Hospitalist
DX: A41.89 Other specified sepsis (principal); E87.2 Acidosis; E11.9 Type 2 diabetes mellitus without complications; E87.1 Hypo-osmolality and hyponatremia; G20 Parkinson's disease; E86.0 Dehydration; I10 Essential (primary) hypertension; J10.1 Influenza due to other identified influenza virus with other respiratory manifestations; J20.9 Acute bronchitis, unspecified; Z79.84 Long term (current) use of oral hypoglycemic drugs; Z79.899 Other long term (current) drug therapy; K29.70 Gastritis, unspecified, without bleeding
CPT/HCPCS: 36415; 71046; 74018; 80048; 80053; 81001; 83605; 83735; 84132; 84484; 85025; 85610; 85730; 87040; 87081; 87086; 87430; 87502; 93005; 96365; 96375; 99284

== ENCOUNTER → 2018-04-05 | Outpatient (CLI) | payer MEDICARE, BC ==
[2018-04-05 14:30] LABS: Basophils % (A) 0 %; Eosinophils # (A) 0.2 k/uL (0-0.7); Eosinophils % (A) 3 %; HCT 38.2 % (39.0-53.0); HGB 12.7 gm/dL (13.0-17.5); Lymphocytes # (A) 1.6 k/uL (1.0-4.8); Lymphocytes % (A) 25 %; MCH 29.4 pg (25.0-35.0); MCHC 33.3 g/dL (31.0-37.0); MCV 88.2 fL (80.0-100.0); Mean Platelet Volume 7.8; Monocytes # (A) 0.4 k/uL (0-1.0); Monocytes % (A) 6 %; Neutrophils # (A) 4.1 k/uL (1.3-7.7); Neutrophils % (A) 64 %; Platelet Count 154 k/uL (150-450); RBC 4.33 m/uL (4.30-5.90); WBC 6.4 k/uL (3.8-10.6)
[2018-04-05 14:49] LABS: Albumin 4.3 g/dL (3.5-5.0); Calcium 9.8 mg/dL (8.4-10.2); Potassium 4.1 mmol/L (3.5-5.1); Total Bilirubin 0.5 mg/dL (0.2-1.3); Total Protein 6.8 g/dL (6.3-8.2)
== END | disposition home or self-care (01) ==
LOC: LABWHC1 13:59
PROVIDERS: ATTEND Internal Medicine Cardiovascular Disease
DX: I25.10 Atherosclerotic heart disease of native coronary artery without angina pectoris (principal); I10 Essential (primary) hypertension
CPT/HCPCS: 36415; 80053; 85025

== ENCOUNTER 2018-04-12 09:30 | Day surgery (SDC) | payer MEDICARE, BC ==
[2018-04-11 09:45] VITALS: BMI 24.2
[~2018-04-12 09:30] MED LIST: ALPRAZolam 0.25 MG TAB PO PRN; ASPIRIN 325 MG TAB PO ONE; NITROGLYCERIN SL TABS 0.4 MG TAB SUBLINGUAL PRN; SODIUM CHLORIDE 0.9% 1,000 ML in EMPTY BAG 1 BAG IV ONE
[2018-04-12 10:39] LABS: Glucose,Whole Blood 154 mg/dL (75-99)
[2018-04-12] MEDS ORDERED: SODIUM CHLORIDE 0.9% 1,000 ML IV ONE (10:52)
[2018-04-12] MEDS ORDERED: fentaNYL (PF) 50 MCG/ML 2 ML AMP IV ONE (10:52)
[2018-04-12] MEDS ORDERED: LIDOCAINE 1% INJ 10MG/ML (20 ML MDV) SQ ONE (10:54)
[2018-04-12] MEDS ORDERED: NITROGLYCERIN OINT 1 INCH/GM PACKET TOPICAL ONE (11:04)
[2018-04-12] MEDS ORDERED: METOPROLOL TARTRATE 5 MG/5 ML VIAL IVP ONE (11:10)
[2018-04-12] MEDS ORDERED: BIVALIRUDIN BOLUS 250 MG/50 ML IV ONE (11:18)
[2018-04-12] MEDS ORDERED: BIVALIRUDIN 250 MG in SODIUM CHLORIDE 0.9% 50 ML IV ONE (11:19)
--- NOTE | 2018-04-12 11:21 | P.CARDCATH ---
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 Procedure(s) Performed: Left heart catheterization without left ventriculography Description of Procedure: HISTORY: This is a 82-year-old gentleman with history of hypertension and hypercholesterolemia who was recently seen in our office with complaints of exertional shortness of breath as tightness. Symptoms are size to the onset angina. Patient is advised to have a cardiac catheterization for definitive diagnosis. Patient was started on beta jorge and nitrate. CONSENT:I have discussed the risks, benefits and alternative therapies for the above-mentioned procedure and for both sedation/analgesia as well as necessary blood product administration, if indicated, as they pertain to this patient. The patient has indicated understanding and acceptance of the risks and procedures discussed. PROCEDURE: Patient was brought to the lab in a fasting state. Patient was given some IV sedation. The right groin is infiltrated with lidocaine and right femoral artery was entered using Seldinger technique. A 6-English catheter was left in place and selective coronary arteriography was performed. Patient tolerated the procedure well. Femoral angiogram was performed . No immediate complications were noted and patient went on to have stent placement of the circumflex by Dr. Barnard. Conscious Sedation: Versed 0mg Fentanyl 12.5 g Duration 26 minutes HEMODYNAMICS: The aortic pressure is about 168/84. Left ankle end-diastolic pressure is 12-16. There was no gradient across the aortic valve SELECTIVE CORONARY ARTERIOGRAPHY: LEFT MAIN: This is a normal length and a free of any occlusive disease THE LEFT ANTERIOR DESCENDING CORONARY ARTERY:. This is a good caliber vessel giving rise to good-sized diagonal branch. There is about 40-50% lesion in the proximal LAD. The diagonal branch also has about 50- 60% stenosis with diffuse disease. No other critical lesions are noted in the LAD system THE LEFT CIRCUMFLEX AND IS CORONARY ARTERY: This is a moderate caliber vessel giving rise a moderate caliber OM branch. There is about 90% stenosis involving mid circumflex. THE RIGHT CORONARY ARTERY: This a moderate caliber vessel and dominant in nature. There is 70-80% stenosis of the distal LAD. There is also about 60-70% lesion of the PLV branch. 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
[2018-04-12] MEDS ORDERED: NITROGLYCERIN 1000MCG/10ML SYRINGE INTRACORON ONE (11:28)
[2018-04-12] MEDS ORDERED: IOPAMIDOL-370 125ML BTL INJ ONE (11:33)
[2018-04-12] MEDS ORDERED: TICAGRELOR 90 MG TAB PO ONE (11:40)
[2018-04-12] MEDS ORDERED: ZOLPIDEM 5 MG TAB PO PRN (11:52)
[2018-04-12] MEDS ORDERED: MAG HYDROX/AL HYDROX/SIMETH 30 ML CUP PO PRN (11:52)
[2018-04-12] MEDS ORDERED: NITROGLYCERIN SL TABS 0.4 MG TAB SUBLINGUAL PRN (11:52)
[2018-04-12] MEDS ORDERED: ATROPINE SULFATE 0.1 MG/ML 10ML SYRINGE IV PRN (11:52)
[2018-04-12] MEDS ORDERED: RX INFO: IV CONTRAST WAS GIVEN 1 EACH MISC MISCELLANE PRN (11:52)
[2018-04-12] MEDS ORDERED: SODIUM CHLORIDE 0.9% 1,000 ML IV SCH (12:00)
[2018-04-12 13:40] LABS: Glucose,Whole Blood 118 mg/dL (75-99)
--- NOTE | 2018-04-12 13:47 | PTCA ---
PERCUTANEOUSTRANS CORORONARY ANGIOGRAPHY DATE OF SERVICE: 04/12/2018 PERFORMING PHYSICIAN: Vignesh Dominguez MD, web application dev specialist. PROCEDURE PERFORMED: Successful stenting of the mid left circumflex using 2.0 x 15 mm Lyle drug-eluting stent, which was postdilated using 2.5 mm NC balloon with good angiographic results and reduction of stenosis from 80% to 0%. COMPLICATION: None. LEVEL OF SEDATION: Moderate, sedation length of 23 minutes. APPROACH: Right common femoral artery. PROCEDURE DESCRIPTION: After diagnostic heart catheterization was performed by Dr. Barros and after reviewing the angiogram, we decided to pursue with an intervention on the left circumflex. Anticoagulation was initiated using Angiomax. The left main was engaged using an mm guiding catheter. The left circumflex was wired using a whisper wire. After that I did balloon angioplasty using 2.5 x 12 mm balloon before I deployed 2.0 x 15 mm Lyle drug-eluting stent where the stent was positioned under fluoroscopy guidance and deployed under 18 atmospheres. I did post dilate the stent using 2.5 mm NC balloon. The following angiogram showed good angiographic results and with reduction of stenosis from 80% to 0%. POSTPROCEDURE MANAGEMENT: 1. Dual antiplatelet therapy. 2. Risk factors modifications. 3. High-intensity statin. 4. PCI of the RCA. MMGAL / IJN: [id number] /
--- NOTE | 2018-04-12 14:11 | LTR ---
April 12, [address] Ochoa: Mr. Ranjit Lai underwent a heart catheterization today by Dr. Barros and was found to have severe 2 vessel coronary artery disease. He underwent successful stenting of the left circumflex with good angiographic results and he will be scheduled to undergo stenting of the RCA as well. Thank you for allowing us to participate in his care and please do not hesitate to call if you have any question or concern. MMODL / IJN: [id number] /
[2018-04-12] MEDS: GABAPENTIN 100 MG CAP PO SCH ×2 (16:31→20:36)
[2018-04-12 16:33] LABS: Glucose,Whole Blood 130 mg/dL (75-99)
[2018-04-12] MEDS: METOPROLOL TARTRATE 25 MG TAB PO SCH (20:35)
[2018-04-12] MEDS: TICAGRELOR 90 MG TAB PO SCH (20:35)
[2018-04-12] MEDS: amLODIPine 5 MG TAB PO SCH (20:36)
[2018-04-12] MEDS: LOSARTAN 50 MG TAB PO SCH (20:36)
[2018-04-12 20:45] LABS: Glucose,Whole Blood 115 mg/dL (75-99)
[2018-04-12] MEDS ORDERED: ATORVASTATIN 80 MG TAB PO SCH (21:00)
[2018-04-13 04:02] VITALS: RESP 18
[2018-04-13 05:51] LABS: Glucose,Whole Blood 142 mg/dL (75-99)
[2018-04-13 05:57] LABS: Basophils % (A) 0 %; Eosinophils # (A) 0.2 k/uL (0-0.7); Eosinophils % (A) 3 %; HCT 36.9 % (39.0-53.0); HGB 12.4 gm/dL (13.0-17.5); Lymphocytes # (A) 1.6 k/uL (1.0-4.8); Lymphocytes % (A) 18 %; MCH 29.4 pg (25.0-35.0); MCHC 33.7 g/dL (31.0-37.0); MCV 87.1 fL (80.0-100.0); Mean Platelet Volume 8.1; Monocytes # (A) 0.5 k/uL (0-1.0); Monocytes % (A) 6 %; Neutrophils # (A) 6.3 k/uL (1.3-7.7); Neutrophils % (A) 72 %; Platelet Count 156 k/uL (150-450); RBC 4.23 m/uL (4.30-5.90); WBC 8.8 k/uL (3.8-10.6)
[2018-04-13 06:10] LABS: Anion Gap 5 mmol/L; Blood Urea Nitrogen 17 mg/dL (9-20); Calcium 9.3 mg/dL (8.4-10.2); Carbon Dioxide 26 mmol/L (22-30); Chloride 106 mmol/L (98-107); Glucose 129 mg/dL (74-99); Potassium 3.8 mmol/L (3.5-5.1); Sodium 137 mmol/L (137-145)
[2018-04-13] MEDS: METOPROLOL TARTRATE 25 MG TAB PO SCH (07:48)
[2018-04-13] MEDS: GABAPENTIN 100 MG CAP PO SCH (07:48)
[2018-04-13] MEDS: LOSARTAN 50 MG TAB PO SCH (07:49)
[2018-04-13 07:59] VITALS: BP 167/78; PULSE 68; TEMP 97.8
--- NOTE | 2018-04-13 08:56 | P.DS ---
Providers Date of admission: 04/12/2018 Attending physician: Karolyn Barros Consults: 04/12/18 11:52 Consult Physician Routine Consulting Provider: [facility] Consult Reason/Comments: Post Interventional patient Do you want consulting provider notified?: Already Contacted Primary care physician: Master Ochoa [place] [facility] Course: This 82-year-old gentleman was brought in for outpatient cardiac catheterization because of recent onset exertional symptoms of angina. Patient was found to have critical stenosis involving circumflex and also right coronary artery. Patient had stent placement of circumflex and tolerated the procedure well. Patient remained stable overnight. His groin is soft without any hematoma. He denied any chest pain. His vital signs have been stable. Lungs are clear and heart is regular. Patient is being discharged home. He is instructed to hold metformin for 48 hours. He'll go on aspirin and Brillinta along with Lipitor. Rest of the medication to be continued. Patient will be followed in the office in one week. Patient to report was if there is any bleeding, swelling and and undue pain in the groin. Plan - Discharge Summary Discharge Rx Participant: No New Discharge Prescriptions: New Aspirin 81 mg PO DAILY chew Atorvastatin [Lipitor] 80 mg PO HS 30 Days #30 tab Losartan [Cozaar] 75 mg PO BID #60 tab metFORMIN HCL [Glucophage] 500 mg PO DAILY tab Metoprolol Tartrate [Lopressor] 25 mg PO BID tab Nitroglycerin Sl Tabs [Nitrostat] 0.4 mg SUBLINGUAL Q5M PRN tab PRN Reason: Chest Pain Ticagrelor [Brilinta] 90 mg PO BID #60 tab Zinc Sulfate [Orazinc] 220 mg PO DAILY cap Continue sitaGLIPtin PHOS/metFORMIN HCL [Janumet 50-500 mg Tablet] 1 each PO DAILY Pedi Multivit No.25/Folic Acid [Flintstones Multivit Chew Tab] 1 tab PO DAILY [id number] [Excedrin] 1 each PO Q4HR PRN PRN Reason: Pain amLODIPine BES/OLMESARTAN MED [amLODIPine BES/OLMESARTAN MED 5-20 mg] 1 each PO BID Nitroglycerin 0.4 mg SL Q5M PRN PRN Reason: Chest Pain Glucosam/Kin-Msm1/C/George/Bosw [Glucosamine-Chondroitin Tablet] 1 each PO DAILY Calcium/Magnesium/Zinc [Gponpgk-Xohseadex-Tvem Tablet] 1 each PO DAILY Gabapentin [Neurontin] 100 mg PO TID Aspirin 325 mg PO ONCE Discharge Medication List [id number] [Excedrin] 1 each PO Q4HR PRN 04/11/18 [History] Calcium/Magnesium/Zinc [Ncskape-Yaonjqsqo-Kzmi Tablet] 1 each PO DAILY 04/11/18 [History] Glucosam/Kin-Msm1/C/George/Bosw [Glucosamine-Chondroitin Tablet] 1 each PO DAILY 04/11/18 [History] Nitroglycerin 0.4 mg SL Q5M PRN 04/11/18 [History] Pedi Multivit No.25/Folic Acid [Flintstones Multivit Chew Tab] 1 tab PO DAILY [History] amLODIPine BES/OLMESARTAN MED [amLODIPine BES/OLMESARTAN MED 5-20 mg] 1 each PO BID 04/11/18 [History] sitaGLIPtin PHOS/metFORMIN HCL [Janumet 50-500 mg Tablet] 1 each PO DAILY [History] Aspirin 325 mg PO ONCE 04/12/18 [History] Gabapentin [Neurontin] 100 mg PO TID 04/12/18 [History] Aspirin 81 mg PO DAILY chew 04/13/18 [Rx] Atorvastatin [Lipitor] 80 mg PO HS 30 Days #30 tab 04/13/18 [Rx] Losartan [Cozaar] 75 mg PO BID #60 tab 04/13/18 [Rx] Metoprolol Tartrate [Lopressor] 25 mg PO BID tab 04/13/18 [Rx] Nitroglycerin Sl Tabs [Nitrostat] 0.4 mg SUBLINGUAL Q5M PRN tab 04/13/18 [Rx] Ticagrelor [Brilinta] 90 mg PO BID #60 tab 04/13/18 [Rx] Zinc Sulfate [Orazinc] 220 mg PO DAILY cap 04/13/18 [Rx] metFORMIN HCL [Glucophage] 500 mg PO DAILY tab 04/13/18 [Rx] Follow up Appointment(s)/Referral(s): Karolyn Barros MD [STAFF PHYSICIAN] - 04/17/18 1:15 pm (Monday) Patient Instructions/Handouts: *[facility] - After Heart Catheterization - Computer Architect Instructions, Left Heart Catheterization (DC) Discharge Disposition: HOME SELF-CARE
[2018-04-13] MEDS ORDERED: CALCIUM CARBONATE 500 MG CHEWABLE PO SCH (09:00)
[2018-04-13] MEDS ORDERED: LINAGLIPTIN 5 MG TABLET PO SCH (09:00)
[2018-04-13] MEDS ORDERED: GLUCOSAMINE-CHONDROITIN PO SCH (09:00)
[2018-04-13] MEDS ORDERED: MULTIVITAMINS, PEDIATRIC 1 EACH CHEWABLE PO SCH (09:00)
[2018-04-13] MEDS ORDERED: MAGNESIUM OXIDE 400 MG TAB PO SCH (09:00)
[2018-04-13] MEDS ORDERED: ZINC SULFATE 220 MG CAP PO SCH (09:00)
[2018-04-13] MEDS ORDERED: ASPIRIN 81 MG PO SCH (09:00)
[2018-04-13] MEDS: amLODIPine 5 MG TAB PO SCH (10:30)
[2018-04-13] MEDS: TICAGRELOR 90 MG TAB PO SCH (10:30)
[2018-04-15] MEDS ORDERED: metFORMIN 500 MG TAB PO SCH (09:00)
== END 2018-04-13 11:24 | disposition home or self-care (01) ==
LOC: CATHCVL 09:30 → 6SEL 11:37 → CATHCVL 04-13 11:24
PROVIDERS: ATTEND Internal Medicine Cardiovascular Disease
DX: I25.110 Atherosclerotic heart disease of native coronary artery with unstable angina pectoris (principal); I10 Essential (primary) hypertension; E78.00 Pure hypercholesterolemia, unspecified; E11.9 Type 2 diabetes mellitus without complications; Z79.84 Long term (current) use of oral hypoglycemic drugs; G20 Parkinson's disease; Z79.899 Other long term (current) drug therapy
CPT/HCPCS: 93458; 80048; 85025; C9600; C1769 ×3; C1887; C1894; C1725; C1760; C1874; J2001; J3010; J0583; Q9967

== ENCOUNTER → 2018-04-25 | Outpatient (CLI) | payer MEDICARE, BC ==
[2018-04-25 17:56] LABS: HCT 37.7 % (39.0-53.0); HGB 12.7 gm/dL (13.0-17.5); MCH 29.5 pg (25.0-35.0); MCHC 33.7 g/dL (31.0-37.0); MCV 87.5 fL (80.0-100.0); Mean Platelet Volume 7.9; Platelet Count 181 k/uL (150-450); RBC 4.31 m/uL (4.30-5.90); WBC 7.4 k/uL (3.8-10.6)
== END | disposition home or self-care (01) ==
LOC: LABPAT 16:39
PROVIDERS: ATTEND Internal Medicine Interventional Cardiology
DX: Z01.812 Encounter for preprocedural laboratory examination (principal); I25.10 Atherosclerotic heart disease of native coronary artery without angina pectoris
CPT/HCPCS: 80051; 82565; 84520; 85027

== ENCOUNTER 2018-05-11 06:22 | Day surgery (SDC) | payer MEDICARE, BC ==
[2018-05-08 09:40] VITALS: BMI 23.7
[2018-05-11] MEDS ORDERED: ALPRAZolam 0.25 MG TAB PO PRN (06:26)
[2018-05-11] MEDS ORDERED: NITROGLYCERIN SL TABS 0.4 MG TAB SUBLINGUAL PRN ×3 (06:26→08:13)
[2018-05-11] MEDS ORDERED: SODIUM CHLORIDE 0.9% 1,000 ML in EMPTY BAG 1 BAG IV ONE (06:26)
[2018-05-11] MEDS ORDERED: ALPRAZolam 0.5 MG TAB PO PRN (06:26)
[2018-05-11] MEDS ORDERED: ASPIRIN 325 MG TAB PO ONE (07:00)
[2018-05-11] MEDS ORDERED: ATORVASTATIN 80 MG TAB PO ONE (07:00)
[2018-05-11 07:05] LABS: Glucose,Whole Blood 132 mg/dL (75-99)
[2018-05-11] MEDS ORDERED: LIDOCAINE 1% INJ 10MG/ML (20 ML MDV) ONE (07:15)
[2018-05-11] MEDS ORDERED: MIDAZOLAM 2 MG/2 ML VIAL ONE (07:16)
[2018-05-11] MEDS ORDERED: MIDAZOLAM 2 MG/2 ML VIAL IV ONE (07:36)
[2018-05-11] MEDS ORDERED: LIDOCAINE 1% INJ 10MG/ML (20 ML MDV) SQ ONE (07:37)
[2018-05-11] MEDS ORDERED: TICAGRELOR 90 MG TAB ONE (07:40)
[2018-05-11] MEDS ORDERED: BIVALIRUDIN BOLUS 250 MG/50 ML IV ONE (07:41)
[2018-05-11] MEDS ORDERED: TICAGRELOR 90 MG TAB PO ONE (07:42)
[2018-05-11] MEDS ORDERED: BIVALIRUDIN 250 MG in SODIUM CHLORIDE 0.9% 40 ML IV ONE (07:43)
[2018-05-11] MEDS: NITROGLYCERIN 1000MCG/10ML SYRINGE INTRAARTER ONE ×2 (07:59→08:00)
[2018-05-11] MEDS ORDERED: ASPIRIN-ACET-CAFF 250-250-65MG 1 EACH TAB PO PRN (08:12)
[2018-05-11] MEDS ORDERED: MAG HYDROX/AL HYDROX/SIMETH 30 ML CUP PO PRN (08:13)
[2018-05-11] MEDS ORDERED: ATROPINE SULFATE 0.1 MG/ML 10ML SYRINGE IV PRN (08:13)
[2018-05-11] MEDS ORDERED: RX INFO: IV CONTRAST WAS GIVEN 1 EACH MISC MISCELLANE PRN (08:13)
[2018-05-11] MEDS ORDERED: ZOLPIDEM 5 MG TAB PO PRN (08:13)
[2018-05-11] MEDS ORDERED: IOPAMIDOL-370 125ML BTL INJ ONE (08:14)
[2018-05-11] MEDS ORDERED: fentaNYL (PF) 50 MCG/ML 2 ML AMP ONE (08:15)
[2018-05-11] MEDS ORDERED: SODIUM CHLORIDE 0.9% 1,000 ML IV SCH (08:15)
[2018-05-11] MEDS ORDERED: NON-FORMULARY DRUG (Calcium/Magnesium/Zinc [Calcium-Magnesium-Zinc Tablet] 1 EACH) PO SCH (09:00)
[2018-05-11] MEDS ORDERED: NON-FORMULARY DRUG (Glucosam/Chon-Msm1/C/Mang/Bosw [Glucosamine-Chondroitin Tablet] 1 EACH PO SCH (09:00)
--- NOTE | 2018-05-11 09:13 | LTR ---
May 11, 2018 Re: Ranjit Lai Dear Dr. Ochoa: Mr. Ranjit Lai underwent successful stenting of the distal right coronary artery with good angiographic results and reduction of stenosis from 80% to 0%. I want to thank you for allowing me to participate in his care and please do not hesitate to call if you have any question or concern. Sincerely, MD IVORY Morgan / JOJON: [id number] /
--- NOTE | 2018-05-11 10:34 | PTCA ---
PERCUTANEOUSTRANS CORORONARY ANGIOGRAPHY DATE OF SERVICE: May 11, 2018 PERFORMING PHYSICIAN: Vignesh Dominguez MD, hands assembler. PROCEDURE PERFORMED: Successful stenting of the distal RCA using 2.75 x 15 mm Xience APOLLO with good angiographic results and reduction of stenosis from 80% to 0%. INDICATION: This is a pleasant 83-year-old gentleman who sees Dr. Barros in the office as an outpatient who was experiencing chest discomfort concerning for angina and underwent a heart catheterization by Dr. Barros a few weeks ago and that showed severe 2 vessel coronary artery disease involving the left circumflex in the midportion of the RCA and distal portion. He underwent successful stenting of the left circumflex at that point, and he was brought today to undergo stenting of the RCA. APPROACH: Right common femoral artery. COMPLICATION: None. LEVEL OF SEDATION: Moderate with a sedation length of 30 minutes. PROCEDURE DESCRIPTION: After obtaining an informed consent, the patient was brought to the cardiac laborer dairy farm. The right common femoral artery was cannulated using micropuncture technique, the micropuncture wire passed easily then I placed a 6-Armenian sheath in the right common femoral artery. Subsequently anticoagulation was initiated using Angiomax. After that, I did engage the RCA using JR4 guiding catheter. A whisper wire was used to wire the RCA and also I did wire the RCA with a emerson wire which was a run-through wire to straighten the proximal segment which was quite tortuous. After that I did balloon angioplasty using 2.5 x 12 mm balloon before I deployed 2.75 x 15 mm Xience APOLLO where the stent was positioned under fluoroscopy guidance and deployed under 18 atmospheres for 20 seconds with the following angiogram showed excellent angiographic results. At that point, the procedure was completed without any complication. POSTPROCEDURE MANAGEMENT: 1. Dual antiplatelet therapy. 2. Risk factors modifications. 3. Follow up with the patient. MMODL / IJN: [id number] /
[2018-05-11] MEDS: GABAPENTIN 100 MG CAP PO SCH ×2 (11:10→20:55)
[2018-05-11] MEDS: MULTIVITAMINS, PEDIATRIC 1 EACH CHEWABLE PO SCH (11:11)
[2018-05-11] MEDS: METOPROLOL TARTRATE 25 MG TAB PO SCH ×2 (11:11→20:55)
[2018-05-11] MEDS: LINAGLIPTIN 5 MG TABLET PO SCH (11:11)
[2018-05-11 11:44] LABS: Glucose,Whole Blood 141 mg/dL (75-99)
[2018-05-11 16:41] LABS: Glucose,Whole Blood 111 mg/dL (75-99)
[2018-05-11 20:57] LABS: Glucose,Whole Blood 135 mg/dL (75-99)
[2018-05-11] MEDS ORDERED: LISINOPRIL 10 MG TAB PO SCH (21:00)
[2018-05-11] MEDS ORDERED: amLODIPine 5 MG TAB PO SCH (21:00)
[2018-05-11] MEDS ORDERED: ATORVASTATIN 80 MG TAB PO SCH (21:00)
[2018-05-12 06:37] LABS: Basophils # (A) 0.1 k/uL (0-0.2); Basophils % (A) 1 %; Eosinophils # (A) 0.5 k/uL (0-0.7); Eosinophils % (A) 5 %; HGB 12.4 gm/dL (13.0-17.5); Lymphocytes # (A) 0.7 k/uL (1.0-4.8); Lymphocytes % (A) 7 %; MCH 29.4 pg (25.0-35.0); MCHC 33.5 g/dL (31.0-37.0); MCV 87.9 fL (80.0-100.0); Mean Platelet Volume 7.8; Monocytes # (A) 0.5 k/uL (0-1.0); Monocytes % (A) 5 %; Neutrophils # (A) 7.4 k/uL (1.3-7.7); Neutrophils % (A) 81 %; Platelet Count 146 k/uL (150-450); RBC 4.21 m/uL (4.30-5.90); RDW 13.2 % (11.5-15.5); WBC 9.2 k/uL (3.8-10.6)
[2018-05-12 06:39] LABS: Glucose,Whole Blood 126 mg/dL (75-99)
[2018-05-12 07:02] LABS: Anion Gap 8 mmol/L; Blood Urea Nitrogen 17 mg/dL (9-20); Calcium 9.1 mg/dL (8.4-10.2); Carbon Dioxide 24 mmol/L (22-30); Chloride 104 mmol/L (98-107); Glucose 123 mg/dL (74-99); Potassium 3.7 mmol/L (3.5-5.1); Sodium 136 mmol/L (137-145)
[2018-05-12] MEDS: LINAGLIPTIN 5 MG TABLET PO SCH (08:24)
[2018-05-12] MEDS: METOPROLOL TARTRATE 25 MG TAB PO SCH (08:24)
[2018-05-12] MEDS: GABAPENTIN 100 MG CAP PO SCH (08:24)
[2018-05-12] MEDS: MULTIVITAMINS, PEDIATRIC 1 EACH CHEWABLE PO SCH (08:24)
[2018-05-12 08:56] VITALS: BP 147/69; PULSE 66; RESP 20; TEMP 97.9
[2018-05-12] MEDS ORDERED: ASPIRIN 81 MG PO SCH (09:00)
[2018-05-12] MEDS ORDERED: TICAGRELOR 90 MG TAB PO SCH (09:00)
--- NOTE | 2018-05-12 10:25 | DS ---
DISCHARGE SUMMARY ADMISSION DATE: May 11, 2018. DISCHARGE DATE: May 12, 2018 BRIEF HISTORY: This is a pleasant 83-year-old gentleman who sees Dr. Barros in the office as an outpatient who was experiencing chest discomfort concerning for angina and underwent a heart catheterization by Dr. Barros a few weeks ago and that showed severe 2 vessel CAD involving the left circumflex and RCA. He underwent stenting of the left circumflex at that point, and he was brought yesterday and underwent stenting of the RCA yesterday using a drug-eluting stent with good angiographic results from a right groin approach. On follow up with her today, he is doing good and he is asymptomatic. He is going to be discharged home on dual anti-platelet therapy and I will follow up with the patient in the office in a week until then he will follow up with Dr. Barros. The right groin is soft and nontender and without any bruises. MMODL / IJN: [id number] /
[2018-05-13] MEDS ORDERED: metFORMIN 500 MG TAB PO SCH (07:30)
== END 2018-05-12 10:45 | disposition home or self-care (01) ==
LOC: CATHCVL 06:22 → 6SEL 09:29 → CATHCVL 05-12 10:45
PROVIDERS: ATTEND Internal Medicine Interventional Cardiology
DX: I25.10 Atherosclerotic heart disease of native coronary artery without angina pectoris (principal); Z95.5 Presence of coronary angioplasty implant and graft
CPT/HCPCS: 80048; 85025; C9600; C1769 ×4; C1887; C1725; C1894; C1874; J2250; J2001; J0583; Q9967

== ENCOUNTER → 2019-03-05 | Outpatient (CLI) | payer MEDICARE, BC ==
[2019-03-05 17:21] LABS: African American GFR (CKD) >90 (>60 ml/min/1.73 sqM); Blood Urea Nitrogen 19 mg/dL (9-20)
--- NOTE | 2019-03-06 08:23 | CT ---
EXAMINATION TYPE: CT ChestAbdPelvis w con DATE OF EXAM: 03/05/2019 COMPARISON: None HISTORY: unexplained weight loss CT DLP: 616.5 mGycm CONTRAST: CT scan of the chest, abdomen and pelvis is performed with Oral Contrast and with IV Contrast, patien t injected with 100 mL of Isovue 300. CT Chest: LUNGS: The lungs are clear and free of infiltrate or atelectasis. No pulmonary nodule or mass is det ected. No pleural effusion or CT evidence of interstitial lung disease. MEDIASTINUM: Thoracic aorta is of normal caliber. The heart is not enlarged. No evidence for media stinal mass or adenopathy. HILAR STRUCTURES: No evidence for mass. No hilar adenopathy is appreciated. OTHER: No significant abnormality. CONTRAST CT ABDOMEN AND PELVIS FINDINGS: LIVER/GB: No calcified gallstones. No space occupying hepatic lesion. Biliary tree is of normal ca liber. PANCREAS: No inflammation. No distinct mass. SPLEEN: No splenic enlargement. No lesion seen. ADRENALS: No nodule. No thickening. KIDNEYS/BLADDER: No hydronephrosis. No nephrolithiasis. No distinct renal mass. BOWEL: Normal appendix. Normal bowel caliber. No inflammation. Moderate fecal stasis noted. GENITAL ORGANS: No gross abnormality. LYMPH NODES: No greater than 1cm abdominal or pelvic lymph nodes are appreciated. AORTA: No significant abnormality. OSSEOUS STRUCTURES: No significant abnormality is seen. OTHER: No significant additional abnormality is seen. IMPRESSION: 1. No significant abnormality to account for the patient's symptoms.
== END | disposition home or self-care (01) ==
LOC: RADCTMAIN 15:43
PROVIDERS: ATTEND Family Medicine
DX: J94.8 Other specified pleural conditions (principal)
CPT/HCPCS: 82565; 84520; 71260; 74177; 36415; Q9967

== ENCOUNTER 2019-09-10 19:03 | Emergency (ER) | payer MEDICARE, BC ==
[2019-09-10 19:25] VITALS: BP 163/96; PULSE 64; RESP 20; TEMP 97.7
--- NOTE | 2019-09-10 20:11 | ED ---
Fall HPI - General Chief Complaint: Fall Stated Complaint: fall/hit head Time Seen by Provider: 09/10/19 19:46 Source: patient, family, RN notes reviewed, old records reviewed Mode of arrival: wheelchair - History of Present Illness Initial Comments: 4-year-old male with history of Parkinson's disorder presents today after a fall. Patient fell backwards after losing his balance, hitting the back of his head on the drywall. He reports that he cracked the dry wall. This happened at 6:30 PM. Patient is on Plavix. Patient reports he does have a dull headache. No neurological deficits or vomiting at this time. Patient does have a constant tremor due to history of Parkinson's disease. - Related Data Home Medications Medication Instructions Recorded Confirmed Epebljc-Tdyk-Vcsk [id number] 1 each PO Q4HR PRN 04/11/18 05/08/18 [Excedrin] Calcium/Magnesium/Zinc 1 each PO DAILY 04/11/18 05/11/18 [Wcvwyjk-Kpjreipot-Jymq Tablet] Glucosam/Kin-Msm1/C/George/Bosw 1 each PO DAILY 04/11/18 05/11/18 [Glucosamine-Chondroitin Tablet] Pedi Multivit No.25/Folic Acid 1 tab PO DAILY 04/11/18 05/11/18 [Flintstones Multivit Chew Tab] sitaGLIPtin PHOS/metFORMIN HCL 1 each PO DAILY 04/11/18 05/11/18 [Janumet 50-500 mg Tablet] Gabapentin [Neurontin] 100 mg PO BID 04/12/18 05/11/18 amLODIPine BESYLATE/BENAZEPRIL 1 cap PO HS 05/08/18 05/11/18 [amLODIPine BESYLATE/BENAZEPRIL 5-10 MG] Previous Rx's Medication Instructions Recorded Aspirin 81 mg PO DAILY chew 04/13/18 Atorvastatin [Lipitor] 80 mg PO HS 30 Days #30 tab 04/13/18 Metoprolol Tartrate [Lopressor] 25 mg PO BID tab 04/13/18 Nitroglycerin Sl Tabs [Nitrostat] 0.4 mg SUBLINGUAL Q5M PRN tab 04/13/18 Ticagrelor [Brilinta] 90 mg PO BID #60 tab 04/13/18 Allergies Allergy/AdvReac Type Severity Reaction Status Date / Time No Known Allergies Allergy Verified 09/10/19 19:24 Review of Systems ROS Statement: Those systems with pertinent positive or pertinent negative responses have been documented in the HPI. ROS Other: All systems not noted in ROS Statement are negative. Past Medical History Past Medical History: Coronary Artery Disease (CAD), Cancer, Diabetes Mellitus, Hypertension, Neurologic Disorder Additional Past Medical History / Comment(s): "light pressure in chest"; see DR Barros's H&P; Hx skin Cancer on L arm, parkinson's History of Any Multi-Drug Resistant Organisms: None Reported Past Surgical History: Back Surgery, Heart Catheterization With Stent Additional Past Surgical History / Comment(s): Skin CA removed from L arm; Colonoscopy x2 Past Anesthesia/Blood Transfusion Reactions: No Reported Reaction Date of Last Stent Placement:: 04/12/18 Past Psychological History: No Psychological Hx Reported Smoking Status: Never smoker Past Alcohol Use History: None Reported Past Drug Use History: None Reported - Past Family History Mother Family Medical History: No Reported History Additional Family Medical History / Comment(s): mother alive ; 100 on 05/09/18 General Exam - General Exam Comments Initial Comments: 84-year-old male. Alert and oriented 3. Limitations: no limitations General appearance: alert, in no apparent distress Head exam: Present: atraumatic Eye exam: Present: normal appearance, PERRL, EOMI. Absent: scleral icterus, conjunctival injection, periorbital swelling ENT exam: Present: normal exam, mucous membranes moist Neck exam: Present: normal inspection. Absent: tenderness, meningismus, lymphadenopathy Respiratory exam: Present: normal lung sounds bilaterally. Absent: respiratory distress, wheezes, rales, rhonchi, stridor Cardiovascular Exam: Present: regular rate, normal rhythm, normal heart sounds. Absent: systolic murmur, diastolic murmur, rubs, gallop, clicks GI/Abdominal exam: Present: soft, normal bowel sounds. Absent: distended, tenderness, guarding, rebound, rigid Extremities exam: Present: normal inspection, full ROM, normal capillary refill. Absent: tenderness, pedal edema, joint swelling, calf tenderness Back exam: Present: normal inspection Neurological exam: Present: alert, oriented X3, CN II-XII intact Psychiatric exam: Present: normal affect, normal mood Skin exam: Present: warm, dry, intact, normal color. Absent: rash Course Vital Signs 09/10/19 19:19 Temperature 97.7 F Pulse Rate 64 Respiratory 20 Rate Blood Pressure 163/96 O2 Sat by Pulse 98 Oximetry Medical Decision Making - Medical Decision Making 84 year old female presents today for concern for head injury after fall and hitting back of head on wall. Patient has no neurological deficits. He has resting tremor from parkinson's. Patient is on plavix. CT brain and Cspine are negative for acute process. Discussed head injury precautions and and discussed no brain bleed at this time. Discussed return parameters. - Radiology Data Radiology results: report reviewed CT brain is negative for bleeding, no mass effect, hemorrhorage, or other abnormalities. CT cspine shows dengerative changes, and no fracture. Disposition Clinical Impression: Minor head injury, Concussion Disposition: HOME SELF-CARE Condition: Good Instructions (If sedation given, give patient instructions): Concussion (ED), Head Injury (ED), Fall Prevention (ED) Additional Instructions: Patient should be monitored for any signs of mental status changes. Awake and Patient every 2-3 hours throughout the night. There is any vomiting or signs of altered mental status please return promptly to the emergency room. Is patient prescribed a controlled substance at d/c from ED?: No Referrals: Master Ochoa MD [Primary Care Provider] - 1-2 days Time of Disposition: 20:46
--- NOTE | 2019-09-10 20:17 | CT ---
EXAMINATION TYPE: CT brain margie obrien con DATE OF EXAM: 09/10/2019 COMPARISON: None HISTORY: Fall with head injury. History of Parkinson's disease. CT DLP: 1337.1 mGycm Automated exposure control for dose reduction was used. There is cerebral cortical atrophy. There is no mass effect nor midline shift. There is no sign of in tracranial hemorrhage. Calvarium is intact. Cervical vertebra have normal alignment. Disc spaces are fairly normal. Posterior elements are intact . There is minor hypertrophic changes in the facet joints. The skull base is intact. There is no evid ence of cervical spine fracture. There is mild spurring of the endplates. IMPRESSION: Mild cerebral atrophy. No acute intracranial abnormality. Minor degenerative changes in the cervical spine. No fracture seen.
== END 2019-09-10 21:26 | disposition home or self-care (01) ==
LOC: EC 19:03
DX: S06.0X0A Concussion without loss of consciousness, initial encounter (principal); I25.10 Atherosclerotic heart disease of native coronary artery without angina pectoris; E11.9 Type 2 diabetes mellitus without complications; G20 Parkinson's disease; I10 Essential (primary) hypertension; Z79.02 Long term (current) use of antithrombotics/antiplatelets; Z79.84 Long term (current) use of oral hypoglycemic drugs; Z79.899 Other long term (current) drug therapy; Z85.828 Personal history of other malignant neoplasm of skin; Z95.5 Presence of coronary angioplasty implant and graft; W18.09XA Striking against other object with subsequent fall, initial encounter
CPT/HCPCS: 70450; 72125; 99284

== ENCOUNTER 2019-12-22 14:55 | Observation (INO) | payer MEDICARE, BC ==
[2019-12-22] MEDS ORDERED: ASPIRIN 81 MG PO STA (15:06)
--- NOTE | 2019-12-22 15:16 | ED ---
Chest Pain HPI - General Source: patient, family Mode of arrival: wheelchair Limitations: no limitations <Angelic Schwartz Adama - Last Filed: 12/22/19 16:38> <DerrickabeRacquel Lizzie - Last Filed: 12/23/19 23:32> - General Chief Complaint: Chest Pain Stated Complaint: Chest pain Time Seen by Provider: 12/22/19 15:06 - History of Present Illness Initial Comments: 84-year-old male with history of coronary artery disease with 2 stents placed in his heart as well as oiy-vjceotm-yeruycfeu diabetes, hypertension, dyslipidemia and Parkinson's disorder. Patient states that for the past hour he has had chest pain and pressure over the left side of the chest. Patient states that he has experienced this before one year ago and it was alleviated with 2 nitros. He states he has not had to take any additional nitroglycerin tablets within the last year until today when the pain began he states he has had no relief after 2 tablets. Patient states he has not taken aspirin today. Patient denies any jaw pain, back pain, arm pain nausea vomiting shortness of breath, denies pain with deep inspiration history of DVT or pulmonary embolism. Patient denies any leg swelling or calf pain. Patient denies any history of known active cancer. Patient upon arrival was ordered a chewable aspirin 324mg. He has slight bradycardia. Patient denies any additional complaints. Previous stent appears to be within the RCA, circumflex arteries. There is disease of the LAD in previous heart cath in 04/2018 (Angelic Schwartz) - Related Data Home Medications Medication Instructions Recorded Confirmed Gabapentin [Neurontin] 100 mg PO TID 04/12/18 12/22/19 Clopidogrel Bisulfate [Plavix] 75 mg PO DAILY 12/22/19 12/22/19 amLODIPine BESYLATE/BENAZEPRIL 1 cap PO DAILY 12/22/19 12/22/19 [Lotrel 10-40 MG] rOPINIRole HCL [Requip] 0.25 mg PO TID 12/22/19 12/22/19 sitaGLIPtin PHOS/metFORMIN HCL 1 tab PO BID 12/23/19 12/23/19 [Janumet 50-500 mg Tablet] Previous Rx's Medication Instructions Recorded Aspirin 81 mg PO DAILY chew 04/13/18 Atorvastatin [Lipitor] 80 mg PO HS 30 Days #30 tab 04/13/18 Metoprolol Tartrate [Lopressor] 25 mg PO BID tab 04/13/18 Allergies Allergy/AdvReac Type Severity Reaction Status Date / Time No Known Allergies Allergy Verified 12/22/19 16:16 Review of Systems ROS Other: All systems not noted in ROS Statement are negative. <Angelic Schwartz - Last Filed: 12/22/19 16:38> ROS Other: All systems not noted in ROS Statement are negative. <Racquel Earl - Last Filed: 12/23/19 23:32> ROS Statement: Those systems with pertinent positive or pertinent negative responses have been documented in the HPI. EKG Findings - EKG Comments: EKG Findings:: Significant artifact given patient's history of Parkinson's and tremor multiple attempts were attempted. Ventricular rate 58 bpm, UT interval 142 ms, QRS oriental orthodox 90 ms, QT/QTC 416/408 ms. This is sinus bradycardia there is no obvious ST elevation or depression. There is significant artifact. <Angelic Schwartz - Last Filed: 12/22/19 16:38> Past Medical History Past Medical History: Coronary Artery Disease (CAD), Cancer, Diabetes Mellitus, Hypertension, Neurologic Disorder Additional Past Medical History / Comment(s): "light pressure in chest"; see DR Barros's H&P; Hx skin Cancer on L arm, parkinson's History of Any Multi-Drug Resistant Organisms: None Reported Past Surgical History: Back Surgery, Heart Catheterization With Stent Additional Past Surgical History / Comment(s): Skin CA removed from L arm; Colonoscopy x2 Past Anesthesia/Blood Transfusion Reactions: No Reported Reaction Date of Last Stent Placement:: 04/12/18 Past Psychological History: No Psychological Hx Reported Smoking Status: Never smoker Past Alcohol Use History: None Reported Past Drug Use History: None Reported - Past Family History Mother Family Medical History: No Reported History Additional Family Medical History / Comment(s): mother alive ; 100 on 05/09/18 <Angelic Schwartz - Last Filed: 12/22/19 16:38> General Exam Limitations: no limitations <Angelic Schwartz - Last Filed: 12/22/19 16:38> - General Exam Comments Initial Comments: General: The patient is awake and alert, in no distress, nondiaphoretic, (-) levign sigh Eye: +3 mm pupils are equal, round and reactive to light, extra-ocular movements are intact. No nystagmus. There is normal conjunctiva bilaterally. No signs of icterus. Ears, nose, mouth and throat: There are moist mucous membranes and no oral lesions. Neck: The neck is supple, there is no tenderness or JVD. Cardiovascular: There is a regular rate and rhythm. No murmur, rub or gallop is appreciated. Respiratory: Lungs are clear to auscultation, respirations are non-labored, breath sounds are equal. No wheezes, stridor, rales, or rhonchi. Gastrointestinal: Soft, non-distended, non-tender abdomen without masses or organomegaly noted. There is no rebound or guarding present. No pulsatile masses. Musculoskeletal: Normal ROM, no tenderness. Strength 5/5. Sensation intact. Pulses equal bilaterally 2+. Neurological: A&O x 3. CN II-XII intact grossly, There are no obvious motor or sensory deficits. Coordination appears grossly intact. Speech is normal. Pill rolling tremor of the hands b/l Skin: Skin is warm and dry and no rashes or lesions are noted. Psychiatric: Cooperative, appropriate mood & affect, normal judgment. (Angelic Schwartz) Course Vital Signs 12/22/19 12/22/19 12/22/19 14:57 16:24 16:53 Temperature 97.8 F 97.6 F 97.8 F Pulse Rate 56 L 62 56 L Respiratory 22 18 18 Rate Blood Pressure 167/71 185/80 170/77 O2 Sat by Pulse 99 97 99 Oximetry 12/22/19 17:53 Temperature 98.1 F Pulse Rate 60 Respiratory 18 Rate Blood Pressure 147/85 O2 Sat by Pulse 100 Oximetry Chest Pain MDM <Angelic Schwartz - Last Filed: 12/22/19 16:38> <Racquel Earl - Last Filed: 12/23/19 23:32> - [facility] 84-year-old male presenting today for chief complaint of left-sided chest pressure 1 hour prior to arrival. History of coronary artery disease. No relief with nitroglycerin. Patient was slightly bradycardia in the emergency department on arrival decided to hold nitroglycerin SL. Patient was given a chewable aspirin. Initial troponin negative. His x-ray no acute findings. D- dimer negative. Patient does not appears SOB. No leg swelling. Patient case discussed [facility] Dr. Earl who is agreeable to admission. Dr. Pickens accepted chest pain admission, he recommend low intensity heparin given patient history/presentation as well as nitroglycerin paste. Patient pain does persist but 1-2 which patient states is significantly better. Patient VS remain stable and he will be transferred to the floor. Patient does not appears to have symptoms of Covid-19. (Angelic Schwartz) I was available for consultation in the emergency department. The history and physical exam were done by the midlevel provider. I was consulted for this patients care. I reviewed the case with the midlevel provider and based on their presentation of the patient, I agree with the assessment, medical decision making and plan of care as documented. Chart was dictated using BTIG dictation software. Attempts were made to correct any dictation errors however some typographical errors may persist. Patient was seen during a national state of emergency due to the Covid-19 pandemic. (Racquel Earl) Disposition Is patient prescribed a controlled substance at d/c from ED?: No Time of Disposition: 16:31 Decision to Admit Reason: Admit from EC Decision Date: 12/22/19 Decision Time: 16:31 <Angelic Schwartz - Last Filed: 12/22/19 16:38> <Racquel Earl - Last Filed: 12/23/19 23:32> Clinical Impression: Left chest pressure, Elevated blood pressure reading Disposition: ADMITTED IP TO THIS [facility] Condition: Stable
[2019-12-22] MEDS ORDERED: NITROGLYCERIN SL TABS 0.4 MG TAB SUBLINGUAL PRN ×2 (15:17→16:28)
--- NOTE | 2019-12-22 15:54 | XR ---
EXAMINATION TYPE: XR chest 2V DATE OF EXAM: 12/22/2019 COMPARISON: 11/04/2017 HISTORY: Chest pain TECHNIQUE: FINDINGS: Heart and mediastinum are normal for age. Lungs are clear. Diaphragm is normal. Bony thorax appears normal. There are chest leads. IMPRESSION: Normal chest. No change.
[2019-12-22 15:59] LABS: Basophils % (A) 1 %; Eosinophils # (A) 0.3 k/uL (0-0.7); Eosinophils % (A) 3 %; HCT 39.7 % (39.0-53.0); HGB 13.4 gm/dL (13.0-17.5); Lymphocytes # (A) 1.7 k/uL (1.0-4.8); Lymphocytes % (A) 22 %; MCH 29.9 pg (25.0-35.0); MCHC 33.6 g/dL (31.0-37.0); Mean Platelet Volume 8.7; Monocytes # (A) 0.4 k/uL (0-1.0); Monocytes % (A) 6 %; Neutrophils # (A) 5.2 k/uL (1.3-7.7); Neutrophils % (A) 67 %; Platelet Count 160 k/uL (150-450); RBC 4.46 m/uL (4.30-5.90); RDW 12.8 % (11.5-15.5); WBC 7.8 k/uL (3.8-10.6)
[2019-12-22 16:06] LABS: Albumin 4.5 g/dL (3.5-5.0); Calcium 9.4 mg/dL (8.4-10.2); Magnesium 2.3 mg/dL (1.6-2.3); Potassium 3.9 mmol/L (3.5-5.1); Total Bilirubin 0.9 mg/dL (0.2-1.3); Total Protein 7.4 g/dL (6.3-8.2)
[2019-12-22 16:08] LABS: Partial Thromboplastin Time 26.1 sec (22.0-30.0); Prothrombin Time 10.7 sec (9.0-12.0)
[2019-12-22] MEDS ORDERED: MORPHINE SULFATE 2 MG/ML SYRINGE IVP STA (16:25)
[2019-12-22] MEDS ORDERED: HEPARIN SODIUM,PORCINE 5,000 UNIT/ML 1 ML VIAL IV ONE (16:32)
[2019-12-22] MEDS ORDERED: HEPARIN SODIUM,PORCINE 5,000 UNIT/ML 1 ML VIAL IV PRN (16:32)
[2019-12-22] MEDS ORDERED: NITROGLYCERIN OINT 1 INCH/GM PACKET TOPICAL STA (16:33)
[2019-12-22] MEDS ORDERED: HEPARIN SOD,PORK IN 0.45% NACL 25,000 UNIT in 0.45% NACL 1 250ML.BAG IV SCH (16:45)
[2019-12-22] MEDS: GABAPENTIN 100 MG CAP PO SCH (20:57)
[2019-12-22] MEDS: METOPROLOL TARTRATE 25 MG TAB PO SCH (20:58)
[2019-12-22] MEDS ORDERED: ATORVASTATIN 80 MG TAB PO SCH (21:00)
[2019-12-22 21:16] LABS: Glucose,Whole Blood 121 mg/dL (75-99)
[2019-12-22] MEDS: INSULIN ASPART (NovoLOG) 100 UNIT/ML VIAL SQ SCH (21:16)
[2019-12-23 05:35] LABS: Basophils % (A) 1 %; Eosinophils # (A) 0.2 k/uL (0-0.7); Eosinophils % (A) 3 %; HCT 37.2 % (39.0-53.0); Lymphocytes # (A) 2.2 k/uL (1.0-4.8); Lymphocytes % (A) 31 %; MCH 28.9 pg (25.0-35.0); MCHC 32.2 g/dL (31.0-37.0); MCV 89.9 fL (80.0-100.0); Mean Platelet Volume 8.5; Monocytes # (A) 0.4 k/uL (0-1.0); Monocytes % (A) 6 %; Neutrophils # (A) 4.2 k/uL (1.3-7.7); Neutrophils % (A) 58 %; Platelet Count 140 k/uL (150-450); RBC 4.13 m/uL (4.30-5.90); RDW 13.2 % (11.5-15.5); WBC 7.3 k/uL (3.8-10.6)
[2019-12-23 06:14] LABS: Cholesterol 91 mg/dL (<200); HDL Cholesterol 53 mg/dL (40-60); LDL Cholesterol,Calculated 25 mg/dL (0-99); Triglycerides 64 mg/dL (<150)
[2019-12-23 06:28] LABS: Glucose,Whole Blood 133 mg/dL (75-99)
[2019-12-23] MEDS: INSULIN ASPART (NovoLOG) 100 UNIT/ML VIAL SQ SCH ×3 (06:30→17:45)
[2019-12-23] MEDS ORDERED: LINAGLIPTIN 5 MG TABLET PO SCH (09:00)
[2019-12-23] MEDS ORDERED: ASPIRIN 325 MG TAB PO SCH (09:00)
[2019-12-23] MEDS ORDERED: amLODIPine 10 MG TAB PO SCH (09:00)
[2019-12-23] MEDS ORDERED: CLOPIDOGREL 75 MG TAB PO SCH (09:00)
[2019-12-23] MEDS ORDERED: LISINOPRIL 20 MG TAB PO SCH (09:00)
[2019-12-23] MEDS ORDERED: REGADENOSON 0.4 MG/5 ML SYRINGE IV ONE (09:05)
[2019-12-23] MEDS ORDERED: AMINOPHYLLINE 500 MG/20 ML VIAL IV PRN (09:05)
[2019-12-23] MEDS ORDERED: CAFFEINE CITRATE 60 MG/3 ML VIAL IV PRN (09:05)
--- NOTE | 2019-12-23 11:15 | P.CRDCN ---
History of Present Illness Consult date: 12/23/19 Requesting physician: Jorge A Pickens Consult reason: chest pain Chief complaint: Chest pain History of present illness: This is a 84-year-old gentleman who follows regularly with Dr. Jose chandler in the office. He has a known history of hypertension, diabetes, hyperlipidemia, Parkinson's, coronary artery disease with prior circumflex and RCA stenting, performed in 2018. He presented to the hospital with symptoms of left-sided chest pain which she described as a sharp stabbing chest pain between his rib area on the left mid chest area. He states that he took 2 sublingual nitroglycerin with relief of symptoms and subsequent to that he did have to further episodes which resolved on their own. He denies any associated shortness of breath, no nausea, no diaphoresis. His chest x-ray on presentation here did not reveal any acute findings. Blood pressure 160/90, heart rate in the 70s, 99% on room air. Laboratory data was reviewed, white blood cell count 7.3, hemoglobin 12.0, platelet count 140. Sodium 1:30, potassium 3.9, BUN 25, creatinine 0.9. Troponins negative 3. BNP level 308. At the time of our examination this morning, patient is currently chest pain-free. We did get his office records, it appears that the patient did undergo a stress test one year ago which was negative for any reversible ischemia. Past Medical History Past Medical History: Coronary Artery Disease (CAD), Cancer, Diabetes Mellitus, Hypertension, Neurologic Disorder Additional Past Medical History / Comment(s): "light pressure in chest"; see DR Barros's H&P; Hx skin Cancer on L arm, parkinson's History of Any Multi-Drug Resistant Organisms: None Reported Past Surgical History: Back Surgery, Heart Catheterization With Stent Additional Past Surgical History / Comment(s): Skin CA removed from L arm; Colonoscopy x2 Past Anesthesia/Blood Transfusion Reactions: No Reported Reaction Date of Last Stent Placement:: 04/12/18 Past Psychological History: No Psychological Hx Reported Smoking Status: Never smoker Past Alcohol Use History: None Reported Past Drug Use History: None Reported - Past Family History Mother Family Medical History: No Reported History Additional Family Medical History / Comment(s): mother alive ; 100 on 05/09/18 Medications and Allergies Home Medications Medication Instructions Recorded Confirmed Type Gabapentin [Neurontin] 100 mg PO TID 04/12/18 12/22/19 History Aspirin 81 mg PO DAILY chew 04/13/18 12/22/19 Rx Atorvastatin [Lipitor] 80 mg PO HS 30 Days #30 tab 04/13/18 12/22/19 Rx Metoprolol Tartrate [Lopressor] 25 mg PO BID tab 04/13/18 12/22/19 Rx Clopidogrel Bisulfate [Plavix] 75 mg PO DAILY 12/22/19 12/22/19 History amLODIPine BESYLATE/BENAZEPRIL 1 cap PO DAILY 12/22/19 12/22/19 History [Lotrel 10-40 MG] rOPINIRole HCL [Requip] 0.25 mg PO TID 12/22/19 12/22/19 History sitaGLIPtin [Januvia] 100 mg PO DAILY 12/22/19 12/22/19 History Allergies Allergy/AdvReac Type Severity Reaction Status Date / Time No Known Allergies Allergy Verified 12/22/19 16:16 Physical Exam Vitals: Vital Signs Temp Pulse Pulse Resp BP BP Pulse Ox 12/23/19 08:30 97.8 F 60 18 151/73 99 12/23/19 04:00 59 L 18 12/23/19 03:45 97.6 F 59 L 18 144/70 98 12/23/19 00:00 97.6 F 77 18 158/85 98 12/22/19 20:00 97.7 F 63 18 163/92 98 12/22/19 17:53 98.1 F 60 18 147/85 100 12/22/19 16:53 97.8 F 56 L 18 170/77 99 12/22/19 16:24 97.6 F 62 18 185/80 97 12/22/19 14:57 97.8 F 56 L 22 167/71 99 Intake and Output 12/22/19 12/23/19 12/23/19 22:59 06:59 14:59 Intake Total 160 Output Total 200 375 500 Balance -200 -215 -500 Intake: IV 160 0.9 160 Output: Urine 200 375 500 Other: Voiding Method Urinal Urinal Urinal # Voids 1 1 1 Weight 63.503 kg 61 kg PHYSICAL EXAMINATION: GENERAL: 84-year-old gentleman in no acute distress at the time of my examination HEENT: Head is atraumatic, normocephalic. Pupils equal, round. Sclera anicteric. Conjunctiva are clear. Mucous membranes of the mouth are moist. Neck is supple. There is no elevated jugular venous pressure. No carotid bruit is heard. HEART EXAMINATION: Heart S1 and S2 systolic murmur is heard CHEST EXAMINATION: Lungs are clear to auscultation and precussion. No chest wall tenderness is noted on palpation or with deep breathing. ABDOMEN: Soft, nontender. Bowel sounds are heard. No organomegaly noted. EXTREMITIES: 2+ peripheral pulses with no evidence of peripheral edema and no calf tenderness noted. NEUROLOGIC patient is awake, alert and oriented 3, mild tremors noted . Results 12/23/19 05:10 12/22/19 15:45 Cardiac Enzymes 12/22/19 12/22/19 12/22/19 Range/Units 15:45 15:45 22:30 AST 27 (17-59) U/L Troponin I <0.012 <0.012 (0.000-0.034) ng/mL 12/23/19 Range/Units 05:10 AST (17-59) U/L Troponin I <0.012 (0.000-0.034) ng/mL Coagulation 12/22/19 12/22/19 12/23/19 Range/Units 15:45 22:30 05:10 PT 10.7 (9.0-12.0) sec APTT 26.1 58.2 H 52.7 H (22.0-30.0) sec Lipids 12/23/19 Range/Units 05:10 Triglycerides 64 (<150) mg/dL Cholesterol 91 (<200) mg/dL HDL Cholesterol 53 (40-60) mg/dL CBC 12/22/19 12/23/19 Range/Units 15:45 05:10 WBC 7.8 7.3 (3.8-10.6) k/uL RBC 4.46 4.13 L (4.30-5.90) m/uL Hgb 13.4 12.0 L (13.0-17.5) gm/dL Hct 39.7 37.2 L (39.0-53.0) % Plt Count 160 140 L (150-450) k/uL Comprehensive Metabolic Panel 12/22/19 Range/Units 15:45 Sodium 138 (137-145) mmol/L Potassium 3.9 (3.5-5.1) mmol/L Chloride 104 (98-107) mmol/L Carbon Dioxide 26 (22-30) mmol/L BUN 25 H (9-20) mg/dL Creatinine 0.92 (0.66-1.25) mg/dL Glucose 152 H (74-99) mg/dL Calcium 9.4 (8.4-10.2) mg/dL AST 27 (17-59) U/L ALT 28 (4-49) U/L Alkaline Phosphatase 104 (38-126) U/L Total Protein 7.4 (6.3-8.2) g/dL Albumin 4.5 (3.5-5.0) g/dL Current Medications Generic Name Dose Route Start Last Admin Trade Name Freq PRN Reason Stop Dose Admin Aminophylline 100 mg 12/23/19 09:05 Aminophylline IV 01/22/20 09:06 ONCE PRN Patient Response Amlodipine Besylate 10 mg 12/23/19 09:00 Norvasc PO DAILY [facility] Aspirin 325 mg 12/23/19 09:00 Aspirin PO DAILY [facility] Atorvastatin Calcium 80 mg 12/22/19 21:00 12/22/19 20:57 Lipitor PO 80 mg HS [facility] Administration Caffeine Citrate 60 mg 12/23/19 09:05 Cafcit Inj IV 01/22/20 09:06 ONCE PRN Patient Response Clopidogrel Bisulfate 75 mg 12/23/19 09:00 Plavix PO DAILY [facility] Gabapentin 100 mg 12/22/19 22:00 12/22/19 20:57 Neurontin PO 100 mg TID SHANELL Administration Heparin Sodium (Porcine) 0 unit 12/22/19 16:32 Heparin IV PER PROTOCOL PRN Low PTT Protocol Heparin Sodium/Sodium Chloride 250 mls @ 7.62 mls/hr 12/22/19 16:45 12/22/19 16:52 25,000 unit/ Sodium Chloride IV 12 units/kg/hr .Q24H SHANELL 7.62 mls/hr Administration Protocol 12 UNITS/KG/HR Insulin Aspart 0 unit 12/22/19 21:00 12/23/19 06:30 Novolog SQ Not Given ACHS [facility] Protocol Linagliptin 5 mg 12/23/19 09:00 Tradjenta PO DAILY [facility] Lisinopril 40 mg 12/23/19 09:00 Zestril PO DAILY SHANELL Metoprolol Tartrate 25 mg 12/22/19 21:00 12/22/19 20:58 Lopressor PO 25 mg BID SHANELL Administration Regadenoson 0.4 mg 12/23/19 09:05 Lexiscan IV 12/23/19 09:06 ONCE ONE Ropinirole HCl 0.25 mg 12/22/19 22:00 12/22/19 20:58 Requip PO 0.25 mg TID SHANELL Administration Intake and Output 12/22/19 12/23/19 12/23/19 22:59 06:59 14:59 Intake Total 160 Output Total 200 375 500 Balance -200 -215 -500 Intake: IV 160 0.9 160 Output: Urine 200 375 500 Other: Voiding Method Urinal Urinal Urinal # Voids 1 1 1 Weight 63.503 kg 61 kg 12/23/19 05:10 12/22/19 15:45 EKG Interpretations (text) EKG showed a sinus bradycardia with no acute changes. Assessment and Plan Plan: Assessment and plan #1 chest pain, atypical features for acute coronary syndrome. Troponins are negative 3. EKG shows a sinus bradycardia with no acute changes. #2 known history of coronary artery disease with prior RCA and circumflex stenting in 2018 #3 diabetes #4 hypertension #5 hyperlipidemia #6 Parkinson's Plan We will obtain an echocardiogram with Doppler study as well as a Persantine Cardiolite stress test today. If the stress test is negative, then from our per spective the patient may be able to be discharged home to follow-up with Dr. Barros in the office post discharge. DNP note has been reviewed, I agree with a documented findings and plan of care. Patient was seen and examined.
--- NOTE | 2019-12-23 11:37 | ECHOF ---
Referral Reason:chest pain MEASUREMENTS -------- HEIGHT: 172.7 cm WEIGHT: 60.8 kg BP: RVIDd: 2.7 cm (< 3.3) IVSd: 1.1 cm (0.6 - 1.1) LVIDd: 3.8 cm (3.9 - 5.3) LVPWd: 1.2 cm (0.6 - 1.1) IVSs: 1.5 cm LVIDs: 2.2 cm LVPWs: 1.7 cm Ao Diam: 3.4 cm (2.0 - 3.7) AV Cusp: 2.2 cm (1.5 - 2.6) LA Diam: 2.5 cm (2.7 - 3.8) MV EXCURSION: 14.642 mm (> 18.000) MV EF SLOPE: 59 mm/s (70 - 150) EPSS: 0.7 cm MV E Matthew: 0.84 m/s MV DecT: 204 ms MV A Matthew: 1.00 m/s MV E/A Ratio: 0.83 RAP: 5.00 mmHg RVSP: 20.87 mmHg FINDINGS -------- Sinus rhythm. This was a technically good study. The left ventricular size is normal. There is mild concentric left ventricular hypertrophy. Overa ll left ventricular systolic function is normal with, an EF between 55 - 60 %. Normal LAP Grade 1 D iastolic Dysfunction. The right ventricle is normal in size. The left atrial size is normal. The right atrial size is normal. The aortic valve is trileaflet and appears structurally normal. The mitral valve is normal. The mitral valve leaflets are mildly thickened. There is trace mitral regurgitation. The tricuspid valve appears structurally normal. Trace tricuspid regurgitation present. Right lj tricular systolic pressure is normal at < 35 mmHg. There is no pulmonic regurgitation present. The aortic root size is normal. Normal inferior vena cava with normal inspiratory collapse consistent with estimated right atrial pre ssure of 5 mmHg. There is no pericardial effusion. CONCLUSIONS -------- 1. Sinus rhythm. 2. This was a technically good study. 3. The left ventricular size is normal. 4. There is mild concentric left ventricular hypertrophy. 5. Overall left ventricular systolic function is normal with, an EF between 55 - 60 %. 6. Normal LAP Grade 1 Diastolic Dysfunction. 7. The right ventricle is normal in size. 8. The left atrial size is normal. 9. The right atrial size is normal. 10. The aortic valve is trileaflet and appears structurally normal. 11. The mitral valve is normal. 12. The mitral valve leaflets are mildly thickened. 13. There is trace mitral regurgitation. 14. The tricuspid valve appears structurally normal. 15. Trace tricuspid regurgitation present. 16. Right ventricular systolic pressure is normal at < 35 mmHg. 17. There is no pulmonic regurgitation present. 18. The aortic root size is normal. 19. Normal inferior vena cava with normal inspiratory collapse consistent with estimated right atrial pressure of 5 mmHg. 20. There is no pericardial effusion. RN [facility]: Melida Pena RDCS
[2019-12-23 11:51] LABS: Glucose,Whole Blood 120 mg/dL (75-99)
[2019-12-23] MEDS ORDERED: DIPYRIDAMOLE IV ONE (12:45)
[2019-12-23] MEDS ORDERED: SODIUM CHLORIDE 0.9% IV ONE (12:45)
[2019-12-23] MEDS ORDERED: AMINOPHYLLINE 500 MG/20 ML VIAL IV ONE (13:07)
--- NOTE | 2019-12-23 14:28 | EST ---
EXERCISE STRESS AGE: 84 SEX: M HT: 68" WT: 134 lbs. PROTOCOL: Persantine Cardiolite Study HEART RATE REST: 64 BLOOD PRESSURE REST: 105/83 MAXIMUM HEART RATE ACHIEVED: 83 MAXIMUM BLOOD PRESSURE: 179/75 85% MPHR: 116 100% MPHR: 137 INDICATIONS: Chest pain. CLINICAL INFORMATION: Baseline EKG shows sinus rhythm, normal axis, normal intervals. Patient was given intravenous Persantine as per protocol, did not have chest pain and the EKG changes were inconclusive. Patient developed left bundle branch block following Persantine infusion. This is probably a rate dependent left bundle branch block. He remains stable hemodynamically, had some chest discomfort at the beginning of the study, continued to have it. Persantine will be reversed with aminophylline. CONCLUSION: 1. Inconclusive EKG part of the stress test secondary to left bundle branch block. 2. Cardiolite portion of the stress test will be reported separately. MMODL / IJN: [id number] /
[2019-12-23 14:54] VITALS: BP 141/70; PULSE 68; RESP 16; TEMP 97.6
[2019-12-23] MEDS: GABAPENTIN 100 MG CAP PO SCH ×2 (14:55→14:56)
[2019-12-23] MEDS: METOPROLOL TARTRATE 25 MG TAB PO SCH (14:55)
--- NOTE | 2019-12-23 16:11 | NM ---
EXAMINATION TYPE: NM stress persantine cardiolite DATE OF EXAM: 12/23/2019 COMPARISON: NONE HISTORY: Chest pain TECHNIQUE: After the intravenous administration of 10.1 mCi Tc 99m Sestamibi - Cardiolite resting SP ECT images acquired 45 minutes post injection. The patient received 35 mg Persantine, 25.8 mCi Tc 99m Sestamibi - Stress images obtained 40 minutes post injection . 100 Milligrams Aminophyllin was utilized. FINDINGS: No fixed or reversible perfusion defects are evident. Gated wall motion is normal. The ejection fract ion is 58%. IMPRESSION: 1. No stress-induced ischemic changes.
--- NOTE | 2019-12-23 16:41 | P.HPIM ---
History of Present Illness H&P Date: 12/23/19 Chief Complaint: Chest pain History of presenting complaint: This is a pleasant 84-year-old patient of Dr. billings. Chronic stable medical conditions include coronary artery disease with stent, diabetes, hypertension, Parkinson's disease. Patient lives with her son. Able to get about the house. Patient presented with a sharp prechordal pain lasted for about half an hour. Did not radiate to the neck or arm. There was no shortness of breath dizziness lightheadedness of perspiration. Admitted to rule out a cardiac cause. Slightly tired. No cough. No fever no chills. Review of systems: GEN.: None EYES: None HEENT: None NECK: None RESPIRATORY: None CARDIOVASCULAR: As above GASTROINTESTINAL: None GENITOURINARY: None MUSCULOSKELETAL: None LYMPHATICS: None HEMATOLOGICAL: None PSYCHIATRY: None NEUROLOGICAL: Tremors Past medical history to include: Coronary artery with stent, diabetes, hypertension, Parkinson's disease, Social history: Discussed with the son. No history of smoking". No alcohol Physical examination: VITAL SIGNS: 97.8, 56, 22, 167/71, 99% on room air GENERAL: BMI 20.4, laying in bed, not in distress. EYES: Pupils equal. Conjunctiva normal. HEENT: External appearance of nose and ears normal, oral cavity grossly normal. NECK: JVD not raised; masses not palpable. HEART: First and second heart sounds are normal; no edema. LUNGS: Respiratory rate normal; clear to auscultation. ABDOMEN: Soft, nontender, liver spleen not palpable, no masses palpable. PSYCH: Alert and oriented x3; mood and affect normal. NEUROLOGICAL: Cranial nerves grossly intact; no facial asymmetry, power and sensation grossly intact, tremors present. LYMPHATICS: No lymph nodes palpable in the axilla and neck INVESTIGATIONS, reviewed in the clinical context: White count 7.8 hemoglobin 13.4 platelets 160 progression 3.9 and crit 0.92 EKG tracing personally reviewed by me-sinus rhythm, poor baseline Chest x-ray film personally reviewed by me-lung steward clear Troponin I 3 negative Assessment: -Left anterior chest wall pain with some atypical features but given her history of coronary artery disease to rule out angina. -Coronary artery disease with stent -Diabetes mellitus type 2, on oral hypoglycemic -Essential hypertension -Idiopathic Parkinson's disease Plan: Serial cardiac enzymes were negative. Home medications resumed. Patient is on aspirin. Cardiology was consulted. They ordered a nuclear stress test. Care was discussed with the patient. Questions were answered. Past Medical History Past Medical History: Coronary Artery Disease (CAD), Cancer, Diabetes Mellitus, Hypertension, Neurologic Disorder Additional Past Medical History / Comment(s): "light pressure in chest"; see DR Barros's H&P; Hx skin Cancer on L arm, parkinson's History of Any Multi-Drug Resistant Organisms: None Reported Past Surgical History: Back Surgery, Heart Catheterization With Stent Additional Past Surgical History / Comment(s): Skin CA removed from L arm; Colonoscopy x2 Past Anesthesia/Blood Transfusion Reactions: No Reported Reaction Date of Last Stent Placement:: 04/12/18 Past Psychological History: No Psychological Hx Reported Smoking Status: Never smoker Past Alcohol Use History: None Reported Past Drug Use History: None Reported - Past Family History Mother Family Medical History: No Reported History Additional Family Medical History / Comment(s): mother alive ; 100 on 05/09/18 Medications and Allergies Home Medications Medication Instructions Recorded Confirmed Type Gabapentin [Neurontin] 100 mg PO TID 04/12/18 12/22/19 History Aspirin 81 mg PO DAILY chew 04/13/18 12/22/19 Rx Atorvastatin [Lipitor] 80 mg PO HS 30 Days #30 tab 04/13/18 12/22/19 Rx Metoprolol Tartrate [Lopressor] 25 mg PO BID tab 04/13/18 12/22/19 Rx Clopidogrel Bisulfate [Plavix] 75 mg PO DAILY 12/22/19 12/22/19 History amLODIPine BESYLATE/BENAZEPRIL 1 cap PO DAILY 12/22/19 12/22/19 History [Lotrel 10-40 MG] rOPINIRole HCL [Requip] 0.25 mg PO TID 12/22/19 12/22/19 History sitaGLIPtin PHOS/metFORMIN HCL 1 tab PO BID 12/23/19 12/23/19 History [Janumet 50-500 mg Tablet] Allergies Allergy/AdvReac Type Severity Reaction Status Date / Time No Known Allergies Allergy Verified 12/22/19 16:16 Physical Exam Vitals: Vital Signs Temp Pulse Pulse Resp BP BP Pulse Ox 12/23/19 08:30 97.8 F 60 18 151/73 99 12/23/19 04:00 59 L 18 04/20/20 03:45 97.6 F 59 L 18 144/70 98 12/23/19 00:00 97.6 F 77 18 158/85 98 12/22/19 20:00 97.7 F 63 18 163/92 98 12/22/19 17:53 98.1 F 60 18 147/85 100 12/22/19 16:53 97.8 F 56 L 18 170/77 99 12/22/19 16:24 97.6 F 62 18 185/80 97 12/22/19 14:57 97.8 F 56 L 22 167/71 99 Intake and Output 12/22/19 12/23/19 12/23/19 22:59 06:59 14:59 Intake Total 160 Output Total 200 375 500 Balance -200 -215 -500 Intake: IV 160 0.9 160 Output: Urine 200 375 500 Other: Voiding Method Urinal Urinal Urinal # Voids 1 1 1 Weight 63.503 kg 61 kg Results CBC & Chem 7: 12/23/19 05:10 12/22/19 15:45 Labs: Abnormal Lab Results - Last 24 Hours (Table) 12/22/19 12/22/19 12/22/19 Range/Units 15:45 21:14 22:30 RBC (4.30-5.90) m/uL Hgb (13.0-17.5) gm/dL Hct (39.0-53.0) % Plt Count (150-450) k/uL APTT 58.2 H (22.0-30.0) sec BUN 25 H (9-20) mg/dL Glucose 152 H (74-99) mg/dL POC Glucose (mg/dL) 121 H (75-99) mg/dL 12/23/19 12/23/19 12/23/19 Range/Units 05:10 05:10 06:27 RBC 4.13 L (4.30-5.90) m/uL Hgb 12.0 L (13.0-17.5) gm/dL Hct 37.2 L (39.0-53.0) % Plt Count 140 L (150-450) k/uL APTT 52.7 H (22.0-30.0) sec BUN (9-20) mg/dL Glucose (74-99) mg/dL POC Glucose (mg/dL) 133 H (75-99) mg/dL Thrombosis Risk Factor Assmnt - Choose All That Apply Each Risk Factor Represents 2 Points: Age 61-74 years Thrombosis Risk Factor Assessment Total Risk Factor Score: 2 Thrombosis Risk Factor Assessment Level: Low Risk
[2019-12-23 16:44] LABS: Glucose,Whole Blood 177 mg/dL (75-99)
--- NOTE | 2019-12-23 18:49 | P.DS ---
Providers Date of admission: 12/22/19 16:35 Expected date of discharge: 12/23/19 Attending physician: Jorge A Pickens Consults: 12/22/19 16:28 Consult Physician Urgent Consulting Provider: Karolyn Barros Consult Reason/Comments: CP rule out Do you want consulting provider notified?: Yes, Notify in am Primary care physician: Master Ochoa [facility] Course: Chief Complaint: Chest pain History of presenting complaint: This is a pleasant 84-year-old patient of Dr. ochoa. Chronic stable medical conditions include coronary artery disease with stent, diabetes, hypertension, Parkinson's disease. Patient lives with her son. Able to get about the house. Patient presented with a sharp prechordal pain lasted for about half an hour. Did not radiate to the neck or arm. There was no shortness of breath dizziness lightheadedness of perspiration. Admitted to rule out a cardiac cause. Slightly tired. No cough. No fever no chills. Today-no further chest pain. Did undergo a nuclear stress test. Negative for ischemia. Cleared by cardiology to go home. Consultation: Dr. Cornelius from cardiology Physical examination: VITAL SIGNS: 97.8, 60, 18, 151/73, 99% on room air GENERAL: Laying bed, comfortable EYES: Pupils equal. Conjunctiva normal. HEENT: External appearance of nose and ears normal, oral cavity grossly normal. NECK: JVD not raised; masses not palpable. HEART: First and second heart sounds are normal; no edema. LUNGS: Respiratory rate normal; clear to auscultation. ABDOMEN: Soft, nontender, liver spleen not palpable, no masses palpable. PSYCH: Alert and oriented x3; mood and affect normal. NEUROLOGICAL: Cranial nerves grossly intact; no facial asymmetry, power and sensation grossly intact, tremors present. INVESTIGATIONS, reviewed in the clinical context: White count 7.8 hemoglobin 13.4 platelets 160 progression 3.9 and crit 0.92 EKG tracing personally reviewed by me-sinus rhythm, poor baseline Chest x-ray film personally reviewed by me-lung steward clear Troponin I 3 negative 2-D co-EF 55-60% and no wall motion abnormality. Nuclear stress test-negative for ischemia Assessment: -Left anterior chest wall pain with some atypical features possibly musculoskeletal -Coronary artery disease with stent -Diabetes mellitus type 2, on oral hypoglycemic -Essential hypertension -Idiopathic Parkinson's disease Disposition: Home Patient Condition at Discharge: Stable Plan - Discharge Summary Discharge Rx Participant: No New Discharge Prescriptions: Continue Gabapentin [Neurontin] 100 mg PO TID Aspirin 81 mg PO DAILY chew Atorvastatin [Lipitor] 80 mg PO HS 30 Days #30 tab Metoprolol Tartrate [Lopressor] 25 mg PO BID tab rOPINIRole HCL [Requip] 0.25 mg PO TID amLODIPine BESYLATE/BENAZEPRIL [Lotrel 10-40 MG] 1 cap PO DAILY Clopidogrel Bisulfate [Plavix] 75 mg PO DAILY sitaGLIPtin PHOS/metFORMIN HCL [Janumet 50-500 mg Tablet] 1 tab PO BID Discharge Medication List Gabapentin [Neurontin] 100 mg PO TID 04/12/18 [History] Aspirin 81 mg PO DAILY chew 04/13/18 [Rx] Atorvastatin [Lipitor] 80 mg PO HS 30 Days #30 tab 04/13/18 [Rx] Metoprolol Tartrate [Lopressor] 25 mg PO BID tab 04/13/18 [Rx] Clopidogrel Bisulfate [Plavix] 75 mg PO DAILY 12/22/19 [History] amLODIPine BESYLATE/BENAZEPRIL [Lotrel 10-40 MG] 1 cap PO DAILY 12/22/19 [History] rOPINIRole HCL [Requip] 0.25 mg PO TID 12/22/19 [History] sitaGLIPtin PHOS/metFORMIN HCL [Janumet 50-500 mg Tablet] 1 tab PO BID 12/23/19 [History] Follow up Appointment(s)/Referral(s): Cardiology, [Other] - 2 Weeks Master Ochoa MD [Primary Care Provider] - 1 Week Patient Instructions/Handouts: Chest Pain (DC) Discharge Disposition: HOME SELF-CARE
== END 2019-12-23 18:40 | disposition home or self-care (01) ==
LOC: EC 14:55 → 3SCARD 16:35
PROVIDERS: ADMIT Hospitalist; ATTEND Hospitalist
DX: R07.89 Other chest pain (principal); E11.9 Type 2 diabetes mellitus without complications; E78.5 Hyperlipidemia, unspecified; G20 Parkinson's disease; I10 Essential (primary) hypertension; I25.10 Atherosclerotic heart disease of native coronary artery without angina pectoris; Z79.02 Long term (current) use of antithrombotics/antiplatelets; Z79.82 Long term (current) use of aspirin; Z79.84 Long term (current) use of oral hypoglycemic drugs; Z79.899 Other long term (current) drug therapy; Z85.828 Personal history of other malignant neoplasm of skin; Z95.5 Presence of coronary angioplasty implant and graft; R00.1 Bradycardia, unspecified
CPT/HCPCS: 96366 ×2; 96376; 96365; 96375; 99285; 36415; 93005; 93017; 93306; 83880; 80061; 80053; 83690; 83735; 84484 ×2; 85025 ×2; 85610; 85730 ×2; 71046; 78452; G0378 ×2; J1644 ×2; J0280; J2270; J1245

== ENCOUNTER → 2020-02-12 | Outpatient (CLI) | payer MEDICARE, BC ==
--- NOTE | 2020-02-12 15:37 | CT ---
EXAMINATION TYPE: CT abdomen pelvis wo con DATE OF EXAM: 02/12/2020 COMPARISON: 03/05/2019 INDICATION: abdominal pain DLP: 736 mGycm, Automated exposure control for dose reduction was used. CONTRAST: 0 mL of Isovue 300. Study performed without Oral Contrast TECHNIQUE: Axial images were obtained from above the diaphragm to the pubic rami in the axial plane a t 5 mm thick sections. Reconstructed images are reviewed on the computer in the coronal plane. FINDINGS: Limited CT sections are obtained the lung bases. The lung bases are clear. CT ABDOMEN: Liver: Normal Spleen: Normal Pancreas: Normal Adrenal glands: Right adrenal gland is thickened at 1.6 cm. This is stable from comparison. Left adre nal gland is unremarkable. Gallbladder: Normal Kidneys: No masses are evident. No hydronephrosis is present. No cysts are present. No renal stone s are evident. Aorta: Vascular calcification is within the aorta. Inferior vena cava: Normal. CT PELVIS: Loops of bowel within the abdomen and pelvis are normal. Fecal debris fills the colon. Appendix: Normal as visualized. Urinary bladder: Normal as visualized Genitourinary structures: Prostate is somewhat prominent. Osseous structures: No suspicious lytic or sclerotic lesions. IMPRESSIONS: 1. Moderate fecal retention.
== END | disposition home or self-care (01) ==
LOC: RADCTMAIN 14:44
PROVIDERS: ATTEND Family Medicine
DX: K56.41 Fecal impaction (principal)
CPT/HCPCS: 74176

== ENCOUNTER 2020-06-06 12:05 | Emergency (ER) | payer MEDICARE, BC ==
[2020-06-06 12:14] VITALS: RESP 18; TEMP 97.6
--- NOTE | 2020-06-06 12:48 | ED ---
General Adult HPI - General Chief complaint: Syncope Stated complaint: syncope, head injury Time Seen by Provider: 06/06/20 12:10 Source: patient, family, RN notes reviewed, old records reviewed Mode of arrival: wheelchair Limitations: no limitations - History of Present Illness Initial comments: This is an 85-year-old male who presents emergency Department complaining that he has Parkinson's disease any is often off balance. Patient states today he started falling forward and hit his head on the way down per patient denies any loss of consciousness. Patient states he had a little neck pain initially but no longer. Patient states he also has some left lower rib pain. Patient states prior to the event he had no lightheadedness dizziness or chest pain. Patient denies any palpitations or shortness of breath per patient denies any recent fever chills or cough. Patient denies any extremity pain. Patient denies any back pain. Denies any abdominal pain - Related Data Home Medications Medication Instructions Recorded Confirmed Gabapentin [Neurontin] 100 mg PO TID 04/12/18 06/06/20 Carbidopa-Levodopa 25-100 mg 1 tab PO BID 06/06/20 06/06/20 [Sinemet 25-100] Metoprolol Tartrate [Lopressor] 25 mg PO TID 06/06/20 06/06/20 Nitroglycerin Sl Tabs [Nitrostat] 0.4 mg SUBLINGUAL Q5M PRN 06/06/20 06/06/20 amLODIPine BESYLATE/BENAZEPRIL 1 cap PO BID 06/06/20 06/06/20 [amLODIPine BESYLATE/BENAZEPRIL 5-10 MG] rOPINIRole HCL [Requip] 1 mg PO TID 06/06/20 06/06/20 sitaGLIPtin [Januvia] 100 mg PO DAILY 06/06/20 06/06/20 Previous Rx's Medication Instructions Recorded Aspirin 81 mg PO DAILY chew 04/13/18 Atorvastatin [Lipitor] 80 mg PO HS 30 Days #30 tab 04/13/18 Allergies Allergy/AdvReac Type Severity Reaction Status Date / Time No Known Allergies Allergy Verified 06/06/20 13:41 Review of Systems ROS Statement: Those systems with pertinent positive or pertinent negative responses have been documented in the HPI. ROS Other: All systems not noted in ROS Statement are negative. Past Medical History Past Medical History: Coronary Artery Disease (CAD), Cancer, Diabetes Mellitus, Hypertension, Neurologic Disorder Additional Past Medical History / Comment(s): "light pressure in chest"; see DR Barros's H&P; Hx skin Cancer on L arm, parkinson's History of Any Multi-Drug Resistant Organisms: None Reported Past Surgical History: Back Surgery, Heart Catheterization With Stent Additional Past Surgical History / Comment(s): Skin CA removed from L arm; Colonoscopy x2 Past Anesthesia/Blood Transfusion Reactions: No Reported Reaction Date of Last Stent Placement:: 04/12/18 Past Psychological History: No Psychological Hx Reported Smoking Status: Never smoker Past Alcohol Use History: None Reported Past Drug Use History: None Reported - Past Family History Mother Family Medical History: No Reported History Additional Family Medical History / Comment(s): mother alive ; 100 on 05/09/18 General Exam - General Exam Comments Initial Comments: GENERAL: Patient is well-developed and well-nourished. Patient is nontoxic and well- hydrated and is in mild distress. ENT: Neck is soft and supple. No significant lymphadenopathy is noted. Oropharynx is clear. Moist mucous membranes. Neck has full range of motion without eliciting any pain. EYES: The sclera were anicteric and conjunctiva were pink and moist. Extraocular movements were intact and pupils were equal round and reactive to light. Eyelids were unremarkable. PULMONARY: Unlabored respirations. Good breath sounds bilaterally. No audible rales rhonchi or wheezing was noted. CARDIOVASCULAR: There is a regular rate and rhythm without any murmurs gallops or rubs. ABDOMEN: Soft and nontender with normal bowel sounds. SKIN: Patient has an abrasion and hematoma on the left side of his forehead.. NEUROLOGIC: Patient is alert and oriented x3. Cranial nerves II through XII are grossly intact. Motor and sensory are also intact. Normal speech, volume and content. Symmetrical smile. MUSCULOSKELETAL: Normal extremities with adequate strength and full range of motion. LYMPHATICS: No significant lymphadenopathy is noted PSYCHIATRIC: Normal psychiatric evaluation. Limitations: no limitations Course Vital Signs 06/06/20 12:11 Temperature 97.6 F Pulse Rate 62 Respiratory 18 Rate Blood Pressure 162/78 O2 Sat by Pulse 100 Oximetry Medical Decision Making - Medical Decision Making EKG shows normal sinus rhythm at 62 bpm GA interval 276 QRS on a 54 Q-T intervals 462 QTC is 460. Patient has a left bundle branch block. CT of the brain and C-spine showed no acute abnormality. X-ray the chest shows no acute abnormality. Patient feels at his baseline is feeling comfortable to go home. - Lab Data Result diagrams: 06/06/20 12:47 06/06/20 12:47 Lab Results 06/06/20 06/06/20 Range/Units 12:47 12:47 WBC 8.3 (3.8-10.6) k/uL RBC 4.43 (4.30-5.90) m/uL Hgb 13.1 (13.0-17.5) gm/dL Hct 40.2 (39.0-53.0) % MCV 90.7 (80.0-100.0) fL MCH 29.5 (25.0-35.0) pg MCHC 32.5 (31.0-37.0) g/dL RDW 13.0 (11.5-15.5) % Plt Count 152 (150-450) k/uL Neutrophils % 67 % Lymphocytes % 23 % Monocytes % 5 % Eosinophils % 2 % Basophils % 1 % Neutrophils # 5.6 (1.3-7.7) k/uL Lymphocytes # 1.9 (1.0-4.8) k/uL Monocytes # 0.5 (0-1.0) k/uL Eosinophils # 0.2 (0-0.7) k/uL Basophils # 0.1 (0-0.2) k/uL Sodium 134 L (137-145) mmol/L Potassium 4.0 (3.5-5.1) mmol/L Chloride 100 (98-107) mmol/L Carbon Dioxide 28 (22-30) mmol/L Anion Gap 6 mmol/L BUN 24 H (9-20) mg/dL Creatinine 0.87 (0.66-1.25) mg/dL Est GFR (CKD-EPI)AfAm >90 (>60 ml/min/1.73 sqM) Est GFR (CKD-EPI)NonAf 79 (>60 ml/min/1.73 sqM) Glucose 220 H (74-99) mg/dL Calcium 9.3 (8.4-10.2) mg/dL Total Bilirubin 1.1 (0.2-1.3) mg/dL AST 33 (17-59) U/L ALT 14 (4-49) U/L Alkaline Phosphatase 84 (38-126) U/L Total Protein 7.1 (6.3-8.2) g/dL Albumin 4.3 (3.5-5.0) g/dL Disposition Clinical Impression: Fall, Traumatic hematoma of forehead, Rib contusion Disposition: HOME SELF-CARE Instructions (If sedation given, give patient instructions): Head Injury (ED), Contusion in Adults (ED), Hematoma (ED), Fall Prevention (ED) Is patient prescribed a controlled substance at d/c from ED?: No Referrals: Master Ochoa MD [Primary Care Provider] - 1-2 days Time of Disposition: 14:14
[2020-06-06 12:54] LABS: Basophils # (A) 0.1 k/uL (0-0.2); Basophils % (A) 1 %; Eosinophils # (A) 0.2 k/uL (0-0.7); Eosinophils % (A) 2 %; HCT 40.2 % (39.0-53.0); HGB 13.1 gm/dL (13.0-17.5); Lymphocytes # (A) 1.9 k/uL (1.0-4.8); Lymphocytes % (A) 23 %; MCH 29.5 pg (25.0-35.0); MCHC 32.5 g/dL (31.0-37.0); MCV 90.7 fL (80.0-100.0); Mean Platelet Volume 8.7; Monocytes # (A) 0.5 k/uL (0-1.0); Monocytes % (A) 5 %; Neutrophils # (A) 5.6 k/uL (1.3-7.7); Neutrophils % (A) 67 %; Platelet Count 152 k/uL (150-450); RBC 4.43 m/uL (4.30-5.90); WBC 8.3 k/uL (3.8-10.6)
[2020-06-06 13:03] LABS: ALT 14 U/L (4-49); AST 33 U/L (17-59); African American GFR (CKD) >90 (>60 ml/min/1.73 sqM); Albumin 4.3 g/dL (3.5-5.0); Alkaline Phosphatase 84 U/L (38-126); Anion Gap 6 mmol/L; Blood Urea Nitrogen 24 mg/dL (9-20); Calcium 9.3 mg/dL (8.4-10.2); Carbon Dioxide 28 mmol/L (22-30); Chloride 100 mmol/L (98-107); Glucose 220 mg/dL (74-99); Non-African American GFR(CKD) 79 (>60 ml/min/1.73 sqM); Sodium 134 mmol/L (137-145); Total Bilirubin 1.1 mg/dL (0.2-1.3); Total Protein 7.1 g/dL (6.3-8.2)
--- NOTE | 2020-06-06 14:01 | CT ---
EXAMINATION TYPE: CT brain cspine wo con DATE OF EXAM: 06/06/2020 COMPARISON: Prior exam 09/10/2019 HISTORY: syncope CT DLP: 1227.7 mGycm Automated exposure control for dose reduction was used. TECHNIQUE: CT scan of the head and cervical spine are performed without contrast. FINDINGS: There is no acute intracranial hemorrhage, mass effect, or midline shift identified. The ventricles and sulci are within normal limits in size. The globes are intact and the visualized sin uses are clear. Cervical spine is visualized in its entirety from C1 through upper thoracic levels and demonstrates s atisfactory alignment without evidence of acute fracture or dislocation. Degenerative disc changes ar e again noted. There is multilevel facet arthropathy, foraminal encroachment. Prevertebral soft tiss ue appears within normal limits. The C1-C2 articulation is unremarkable. Possible descending aorta is ectatic at 3.1 cm IMPRESSION: 1. There is no acute fracture or dislocation evident in the cervical spine. 2. No acute intracranial hemorrhage, mass effect, or midline shift is seen, brain shows a stable appe arance, age-related changes of atrophy.
[2020-06-06 14:40] VITALS: BP 165/80; PULSE 90
--- NOTE | 2020-06-06 14:58 | XR ---
EXAMINATION TYPE: XR chest 2V DATE OF EXAM: 06/06/2020 COMPARISON: 12/22/2019 HISTORY: Weakness TECHNIQUE: FINDINGS: Heart and mediastinum are normal. Lungs are clear of infiltrate. Costophrenic angles are cl ear. There are no hilar masses. Thoracic aorta is atheromatous. IMPRESSION: No active cardiopulmonary disease. Normal heart. No change.
== END 2020-06-06 14:39 | disposition home or self-care (01) ==
LOC: EC 12:05
DX: S00.83XA Contusion of other part of head, initial encounter (principal); S20.219A Contusion of unspecified front wall of thorax, initial encounter; E11.9 Type 2 diabetes mellitus without complications; I10 Essential (primary) hypertension; G20 Parkinson's disease; Z79.84 Long term (current) use of oral hypoglycemic drugs; Z79.899 Other long term (current) drug therapy; Z95.5 Presence of coronary angioplasty implant and graft; Z85.828 Personal history of other malignant neoplasm of skin; W01.198A Fall on same level from slipping, tripping and stumbling with subsequent striking against other object, initial encounter
CPT/HCPCS: 36415; 70450; 71046; 72125; 80053; 85025; 93005; 99285

== ENCOUNTER 2021-02-04 00:03 | Emergency (ER) | payer MEDICARE, BC ==
--- NOTE | 2021-02-04 00:14 | ED ---
ENT HPI - General Chief complaint: ENT Stated complaint: Nosebleed Time Seen by Provider: 02/04/21 00:13 Source: patient, family Mode of arrival: ambulatory Limitations: no limitations - Related Data Home Medications Medication Instructions Recorded Confirmed Gabapentin [Neurontin] 100 mg PO TID 04/12/18 06/06/20 Carbidopa-Levodopa 25-100 mg 1 tab PO BID 06/06/20 06/06/20 [Sinemet 25-100] Metoprolol Tartrate [Lopressor] 25 mg PO TID 06/06/20 06/06/20 Nitroglycerin Sl Tabs [Nitrostat] 0.4 mg SUBLINGUAL Q5M PRN 06/06/20 06/06/20 amLODIPine BESYLATE/BENAZEPRIL 1 cap PO BID 06/06/20 06/06/20 [amLODIPine BESYLATE/BENAZEPRIL 5-10 MG] rOPINIRole HCL [Requip] 1 mg PO TID 06/06/20 06/06/20 sitaGLIPtin [Januvia] 100 mg PO DAILY 06/06/20 06/06/20 Previous Rx's Medication Instructions Recorded Aspirin 81 mg PO DAILY chew 04/13/18 Atorvastatin [Lipitor] 80 mg PO HS 30 Days #30 tab 04/13/18 Allergies Allergy/AdvReac Type Severity Reaction Status Date / Time No Known Allergies Allergy Verified 02/04/21 00:09 Review of Systems ROS Statement: Those systems with pertinent positive or pertinent negative responses have been documented in the HPI. ROS Other: All systems not noted in ROS Statement are negative. Past Medical History Past Medical History: Coronary Artery Disease (CAD), Cancer, Diabetes Mellitus, Hypertension, Neurologic Disorder Additional Past Medical History / Comment(s): "light pressure in chest"; see DR Barros's H&P; Hx skin Cancer on L arm, parkinson's History of Any Multi-Drug Resistant Organisms: None Reported Past Surgical History: Back Surgery, Heart Catheterization With Stent Additional Past Surgical History / Comment(s): Skin CA removed from L arm; Colonoscopy x2 Past Anesthesia/Blood Transfusion Reactions: No Reported Reaction Date of Last Stent Placement:: 04/12/18 Past Psychological History: No Psychological Hx Reported Smoking Status: Never smoker Past Alcohol Use History: None Reported Past Drug Use History: None Reported - Past Family History Mother Family Medical History: No Reported History Additional Family Medical History / Comment(s): mother alive ; 100 on 05/09/18 General Exam Limitations: no limitations Course Vital Signs 02/04/21 00:04 Temperature 98.6 F Pulse Rate 95 Respiratory 20 Rate Blood Pressure 161/75 O2 Sat by Pulse 98 Oximetry Disposition Clinical Impression: Epistaxis, Left-sided epistaxis Disposition: HOME SELF-CARE Condition: Good Instructions (If sedation given, give patient instructions): Nosebleed (ED) Is patient prescribed a controlled substance at d/c from ED?: No Referrals: Master Ochoa MD [Primary Care Provider] - 1-2 days
[2021-02-04] MEDS ORDERED: ZOLPIDEM 5 MG TAB PO STA (00:35)
[2021-02-04 01:06] VITALS: BP 180/81; PULSE 97; RESP 18; TEMP 98.1
== END 2021-02-04 01:04 | disposition home or self-care (01) ==
LOC: EC 00:03
DX: R04.0 Epistaxis (principal); I25.10 Atherosclerotic heart disease of native coronary artery without angina pectoris; E11.9 Type 2 diabetes mellitus without complications; I10 Essential (primary) hypertension; Z95.5 Presence of coronary angioplasty implant and graft; Z79.82 Long term (current) use of aspirin
CPT/HCPCS: 99283

== ENCOUNTER 2021-02-06 00:07 | Emergency (ER) | payer MEDICARE, BC ==
[2021-02-06 00:17] VITALS: BP 148/73; PULSE 108; RESP 16; TEMP 98.2
[2021-02-06] MEDS ORDERED: CEPHALEXIN 500MG STARTER PACK 4 CAP BTL PO STA (01:29)
[2021-02-06 01:50] LABS: Basophils # (A) 0.1 k/uL (0-0.2); Basophils % (A) 0 %; Eosinophils # (A) 0.1 k/uL (0-0.7); Eosinophils % (A) 0 %; HCT 33.6 % (39.0-53.0); HGB 11.9 gm/dL (13.0-17.5); Lymphocytes # (A) 1.7 k/uL (1.0-4.8); Lymphocytes % (A) 12 %; MCH 30.3 pg (25.0-35.0); MCHC 35.3 g/dL (31.0-37.0); MCV 85.8 fL (80.0-100.0); Mean Platelet Volume 8.1; Monocytes # (A) 0.9 k/uL (0-1.0); Monocytes % (A) 6 %; Neutrophils % (A) 79 %; Platelet Count 143 k/uL (150-450); RBC 3.92 m/uL (4.30-5.90); RDW 12.9 % (11.5-15.5); WBC 13.9 k/uL (3.8-10.6)
--- NOTE | 2021-02-06 01:56 | ED ---
ENT HPI - General Chief complaint: ENT Stated complaint: Nosebleed Time Seen by Provider: 02/06/21 01:00 Source: patient Mode of arrival: ambulatory Limitations: no limitations - Related Data Home Medications Medication Instructions Recorded Confirmed Gabapentin [Neurontin] 100 mg PO TID 04/12/18 06/06/20 Carbidopa-Levodopa 25-100 mg 1 tab PO BID 06/06/20 06/06/20 [Sinemet 25-100] Metoprolol Tartrate [Lopressor] 25 mg PO TID 06/06/20 06/06/20 Nitroglycerin Sl Tabs [Nitrostat] 0.4 mg SUBLINGUAL Q5M PRN 06/06/20 06/06/20 amLODIPine BESYLATE/BENAZEPRIL 1 cap PO BID 06/06/20 06/06/20 [amLODIPine BESYLATE/BENAZEPRIL 5-10 MG] rOPINIRole HCL [Requip] 1 mg PO TID 06/06/20 06/06/20 sitaGLIPtin [Januvia] 100 mg PO DAILY 06/06/20 06/06/20 Previous Rx's Medication Instructions Recorded Aspirin 81 mg PO DAILY chew 04/13/18 Atorvastatin [Lipitor] 80 mg PO HS 30 Days #30 tab 04/13/18 Allergies Allergy/AdvReac Type Severity Reaction Status Date / Time No Known Allergies Allergy Verified 02/06/21 00:18 Review of Systems ROS Statement: Those systems with pertinent positive or pertinent negative responses have been documented in the HPI. ROS Other: All systems not noted in ROS Statement are negative. Past Medical History Past Medical History: Coronary Artery Disease (CAD), Cancer, Diabetes Mellitus, Hypertension, Neurologic Disorder Additional Past Medical History / Comment(s): "light pressure in chest"; see DR Barros's H&P; Hx skin Cancer on L arm, parkinson's History of Any Multi-Drug Resistant Organisms: None Reported Past Surgical History: Back Surgery, Heart Catheterization With Stent Additional Past Surgical History / Comment(s): Skin CA removed from L arm; Colonoscopy x2 Past Anesthesia/Blood Transfusion Reactions: No Reported Reaction Date of Last Stent Placement:: 04/12/18 Past Psychological History: No Psychological Hx Reported Smoking Status: Never smoker Past Alcohol Use History: None Reported Past Drug Use History: None Reported - Past Family History Mother Family Medical History: No Reported History Additional Family Medical History / Comment(s): mother alive ; 100 on 05/09/18 General Exam Limitations: no limitations Course Vital Signs 02/06/21 00:15 Temperature 98.2 F Pulse Rate 108 H Respiratory 16 Rate Blood Pressure 148/73 O2 Sat by Pulse 99 Oximetry Medical Decision Making - Lab Data Result diagrams: 02/06/21 01:36 Lab Results 02/06/21 Range/Units 01:36 WBC 13.9 H (3.8-10.6) k/uL RBC 3.92 L (4.30-5.90) m/uL Hgb 11.9 L (13.0-17.5) gm/dL Hct 33.6 L (39.0-53.0) % MCV 85.8 (80.0-100.0) fL MCH 30.3 (25.0-35.0) pg MCHC 35.3 (31.0-37.0) g/dL RDW 12.9 (11.5-15.5) % Plt Count 143 L (150-450) k/uL MPV 8.1 Neutrophils % 79 % Lymphocytes % 12 % Monocytes % 6 % Eosinophils % 0 % Basophils % 0 % Neutrophils # 11.0 H (1.3-7.7) k/uL Lymphocytes # 1.7 (1.0-4.8) k/uL Monocytes # 0.9 (0-1.0) k/uL Eosinophils # 0.1 (0-0.7) k/uL Basophils # 0.1 (0-0.2) k/uL Disposition Clinical Impression: Epistaxis Disposition: HOME SELF-CARE Condition: Good Instructions (If sedation given, give patient instructions): Nosebleed (ED) Is patient prescribed a controlled substance at d/c from ED?: No Referrals: Master Ochoa MD [Primary Care Provider] - 1-2 days
== END 2021-02-06 02:20 | disposition home or self-care (01) ==
LOC: EC 00:07
DX: R04.0 Epistaxis (principal); I25.10 Atherosclerotic heart disease of native coronary artery without angina pectoris; E11.9 Type 2 diabetes mellitus without complications; I10 Essential (primary) hypertension
CPT/HCPCS: 36415; 85025; 99283

== ENCOUNTER 2021-02-06 23:55 | Emergency (ER) | payer MEDICARE, BC ==
[2021-02-07] VITALS: BP 148/75; PULSE 99; RESP 20; TEMP 98.2
--- NOTE | 2021-02-07 01:08 | ED ---
ENT HPI - General Chief complaint: ENT Stated complaint: Nosebleed recheck Time Seen by Provider: 02/07/21 00:44 Source: patient Mode of arrival: ambulatory Limitations: no limitations - Related Data Home Medications Medication Instructions Recorded Confirmed Gabapentin [Neurontin] 100 mg PO TID 04/12/18 06/06/20 Carbidopa-Levodopa 25-100 mg 1 tab PO BID 06/06/20 06/06/20 [Sinemet 25-100] Metoprolol Tartrate [Lopressor] 25 mg PO TID 06/06/20 06/06/20 Nitroglycerin Sl Tabs [Nitrostat] 0.4 mg SUBLINGUAL Q5M PRN 06/06/20 06/06/20 amLODIPine BESYLATE/BENAZEPRIL 1 cap PO BID 06/06/20 06/06/20 [amLODIPine BESYLATE/BENAZEPRIL 5-10 MG] rOPINIRole HCL [Requip] 1 mg PO TID 06/06/20 06/06/20 sitaGLIPtin [Januvia] 100 mg PO DAILY 06/06/20 06/06/20 Previous Rx's Medication Instructions Recorded Aspirin 81 mg PO DAILY chew 04/13/18 Atorvastatin [Lipitor] 80 mg PO HS 30 Days #30 tab 04/13/18 Allergies Allergy/AdvReac Type Severity Reaction Status Date / Time No Known Allergies Allergy Verified 02/07/21 00:00 Review of Systems ROS Statement: Those systems with pertinent positive or pertinent negative responses have been documented in the HPI. ROS Other: All systems not noted in ROS Statement are negative. Past Medical History Past Medical History: Coronary Artery Disease (CAD), Cancer, Diabetes Mellitus, Hypertension, Neurologic Disorder Additional Past Medical History / Comment(s): "light pressure in chest"; see DR Barros's H&P; Hx skin Cancer on L arm, parkinson's History of Any Multi-Drug Resistant Organisms: None Reported Past Surgical History: Back Surgery, Heart Catheterization With Stent Additional Past Surgical History / Comment(s): Skin CA removed from L arm; Colonoscopy x2 Past Anesthesia/Blood Transfusion Reactions: No Reported Reaction Date of Last Stent Placement:: 04/12/18 Past Psychological History: No Psychological Hx Reported Smoking Status: Never smoker Past Alcohol Use History: None Reported Past Drug Use History: None Reported - Past Family History Mother Family Medical History: No Reported History Additional Family Medical History / Comment(s): mother alive ; 100 on 05/09/18 General Exam Limitations: no limitations Course Vital Signs 02/06/21 23:57 Temperature 98.2 F Pulse Rate 99 Respiratory 20 Rate Blood Pressure 148/75 O2 Sat by Pulse 98 Oximetry Disposition Clinical Impression: Encounter for removal of nasal packing, Epistaxis, Left-sided epistaxis Disposition: HOME SELF-CARE Condition: Good Instructions (If sedation given, give patient instructions): Nosebleed (ED) Is patient prescribed a controlled substance at d/c from ED?: No Referrals: Master Ochoa MD [Primary Care Provider] - 1-2 days
[2021-02-07] MEDS: OXYMETAZOLINE 0.05% NASL SPRAY 1 SPRAY BOTTLE NASAL STA (01:21)
== END 2021-02-07 01:47 | disposition home or self-care (01) ==
LOC: EC 23:55
DX: Z48.00 Encounter for change or removal of nonsurgical wound dressing (principal); R04.0 Epistaxis; I25.10 Atherosclerotic heart disease of native coronary artery without angina pectoris; E11.9 Type 2 diabetes mellitus without complications; I10 Essential (primary) hypertension; Z79.82 Long term (current) use of aspirin
CPT/HCPCS: 99283

== ENCOUNTER 2021-02-18 10:54 | Inpatient (IN) | payer MEDICARE, BC ==
--- NOTE | 2021-02-18 11:25 | ED ---
Chest Pain HPI - General Chief Complaint: Chest Pain Stated Complaint: Chest pain Time Seen by Provider: 02/18/21 11:09 Source: patient, family, RN notes reviewed Mode of arrival: wheelchair Limitations: physical limitation - History of Present Illness Initial Comments: This is a 85-year-old male with a history of Parkinson's disease a history of cardiac stents in the past who was brought in by family with complaints of the onset last evening of retrosternal chest discomfort fell pressure-like 5/10 in severity with some left arm numbness. He has shortness of breath with it this morning but none last night. He took 2 nitroglycerin with some relief is currently 3/10. Additionally is also had a cough and decreased oral intake. No focal weakness he does have some memory issues per his family. No other complaints or modifying factors at this time. Patient was on aspirin and did have some nosebleeds. Currently no evidence of any bleeding MD Complaint: chest pain - Related Data Home Medications Medication Instructions Recorded Confirmed Gabapentin [Neurontin] 100 mg PO TID 04/12/18 02/18/21 Metoprolol Tartrate [Lopressor] 25 mg PO TID 06/06/20 02/18/21 Nitroglycerin Sl Tabs [Nitrostat] 0.4 mg SUBLINGUAL Q5M PRN 06/06/20 02/18/21 amLODIPine BESYLATE/BENAZEPRIL 1 cap PO BID 06/06/20 02/18/21 [amLODIPine BESYLATE/BENAZEPRIL 5-10 MG] Cephalexin [Keflex] 500 mg PO Q12HR 02/18/21 02/18/21 sitaGLIPtin PHOS/metFORMIN HCL 1 tab PO DAILY 02/18/21 02/18/21 [Janumet 50-500 mg Tablet] Previous Rx's Medication Instructions Recorded Aspirin 81 mg PO DAILY chew 04/13/18 Atorvastatin [Lipitor] 80 mg PO HS 30 Days #30 tab 04/13/18 Allergies Allergy/AdvReac Type Severity Reaction Status Date / Time No Known Allergies Allergy Verified 02/18/21 13:14 Review of Systems ROS Statement: Those systems with pertinent positive or pertinent negative responses have been documented in the HPI. ROS Other: All systems not noted in ROS Statement are negative. EKG Findings - EKG Results: EKG: interpreted by [facility], sinus rhythm (Sinus rhythm a 69. Interval 170 QRS 152 QT since QTC 438/469 left exodeviation left bundle-branch block) Past Medical History Past Medical History: Coronary Artery Disease (CAD), Cancer, Diabetes Mellitus, Hypertension, Neurologic Disorder Additional Past Medical History / Comment(s): Hx skin Cancer on L arm, parkinson's History of Any Multi-Drug Resistant Organisms: None Reported Past Surgical History: Back Surgery, Heart Catheterization With Stent Additional Past Surgical History / Comment(s): Skin CA removed from L arm; Colonoscopy x2 Past Anesthesia/Blood Transfusion Reactions: No Reported Reaction Date of Last Stent Placement:: 04/12/18 Past Psychological History: No Psychological Hx Reported Smoking Status: Never smoker Past Alcohol Use History: None Reported Past Drug Use History: None Reported - Past Family History Mother Family Medical History: No Reported History Additional Family Medical History / Comment(s): mother alive ; 100 on 05/09/18 General Exam - General Exam Comments Initial Comments: This is a well-developed sec appearing male who is awake alert oriented 3 Limitations: physical limitation General appearance: alert, in no apparent distress Head exam: Present: atraumatic, normocephalic, normal inspection Eye exam: Present: normal appearance, PERRL, EOMI. Absent: scleral icterus, conjunctival injection, periorbital swelling ENT exam: Present: mucous membranes dry Neck exam: Present: normal inspection. Absent: tenderness, meningismus, lymphadenopathy Respiratory exam: Present: normal lung sounds bilaterally. Absent: respiratory distress, wheezes, rales, rhonchi, stridor Cardiovascular Exam: Present: regular rate, normal rhythm, normal heart sounds. Absent: systolic murmur, diastolic murmur, rubs, gallop, clicks GI/Abdominal exam: Present: soft, normal bowel sounds. Absent: distended, tenderness, guarding, rebound, rigid Extremities exam: Present: normal inspection, full ROM, normal capillary refill. Absent: tenderness, pedal edema, joint swelling, calf tenderness Back exam: Present: normal inspection Neurological exam: Present: alert, oriented X3, CN II-XII intact Psychiatric exam: Present: normal affect, normal mood Skin exam: Present: warm, dry, intact, normal color. Absent: rash Course Vital Signs 02/18/21 02/18/21 10:55 11:54 Temperature 98.8 F Pulse Rate 69 62 Respiratory 18 16 Rate Blood Pressure 162/94 164/76 O2 Sat by Pulse 99 97 Oximetry Chest Pain MDM - MDM Imaging reviewed no acute findings I did discuss findings with the patient family he'll be admitted to service. Radiology will be consulted. Critical Care Time Critical Care Time: Yes Total Critical Care Time: 31 Critical Care Time: Critical care time includes initial presentation with history physical labs x- rays reevaluation patient. Review of old charting available discussed with the patient family regarding findings discussion with the main service admission orders and documentation of the above Disposition Clinical Impression: Unstable angina pectoris, Chest pain Disposition: ADMITTED IP TO THIS HOSP Condition: Fair Referrals: Master Ochoa MD [Primary Care Provider] - 1-2 days
[2021-02-18 11:30] LABS: Basophils # (A) 0.1 k/uL (0-0.2); Basophils % (A) 1 %; Eosinophils # (A) 0.4 k/uL (0-0.7); Eosinophils % (A) 3 %; HCT 29.7 % (39.0-53.0); HGB 10.5 gm/dL (13.0-17.5); Lymphocytes # (A) 0.9 k/uL (1.0-4.8); Lymphocytes % (A) 8 %; MCH 30.5 pg (25.0-35.0); MCHC 35.2 g/dL (31.0-37.0); MCV 86.8 fL (80.0-100.0); Mean Platelet Volume 8.2; Monocytes # (A) 0.5 k/uL (0-1.0); Monocytes % (A) 5 %; Neutrophils # (A) 9.2 k/uL (1.3-7.7); Neutrophils % (A) 83 %; Platelet Count 166 k/uL (150-450); RBC 3.43 m/uL (4.30-5.90); RDW 13.1 % (11.5-15.5); WBC 11.1 k/uL (3.8-10.6)
--- NOTE | 2021-02-18 11:39 | XR ---
EXAMINATION TYPE: XR chest 2V DATE OF EXAM: 02/18/2021 COMPARISON: 06/06/2020 HISTORY: Chest pressure and pain TECHNIQUE: Frontal and lateral views of the chest are obtained. FINDINGS: There is no focal air space opacity, pleural effusion, or pneumothorax seen. The cardiac silhouette size is within normal limits. The osseous structures are intact. IMPRESSION: No acute cardiopulmonary process.
[2021-02-18 11:41] LABS: Albumin 3.9 g/dL (3.5-5.0); Calcium 9.3 mg/dL (8.4-10.2); Magnesium 1.8 mg/dL (1.6-2.3); Potassium 4.3 mmol/L (3.5-5.1); Total Bilirubin 0.8 mg/dL (0.2-1.3); Total Protein 6.7 g/dL (6.3-8.2)
[2021-02-18 11:55] LABS: INR 1.3 (<1.2); Prothrombin Time 13.4 sec (9.0-12.0)
[2021-02-18] MEDS ORDERED: HEPARIN SODIUM 1,000 UN/ML (10ML VL) IV ONE (14:10)
[2021-02-18] MEDS ORDERED: NITROGLYCERIN SL TABS 0.4 MG TAB SUBLINGUAL PRN (14:10)
[2021-02-18] MEDS ORDERED: HEPARIN SOD,PORK IN 0.45% NACL 25,000 UNIT in 0.45% NACL 1 250ML.BAG IV SCH (14:15)
[2021-02-18] MEDS ORDERED: ONDANSETRON 4 MG/2 ML VIAL IVP PRN (15:27)
[2021-02-18] MEDS ORDERED: MELATONIN 3 MG TABLET PO PRN (15:27)
[2021-02-18] MEDS ORDERED: ACETAMINOPHEN TAB 325 MG TAB PO PRN (15:27)
[2021-02-18] MEDS ORDERED: NALOXONE 0.4 MG/ML 1 ML VIAL IV PRN (15:27)
--- NOTE | 2021-02-18 16:03 | P.HPIM ---
<Jamaal Montejo - Last Filed: 02/18/21 14:47> History of Present Illness H&P Date: 02/18/21 History of Presenting Illness: Patient is an 85-year-old male with a past medical history of CAD with stenting to RCA [place] [address] Dominguez, hypertension, hyperlipidemia, type II non-insulin- dependent diabetes mellitus, Parkinson's disease, and mild dementia. Patient presented to the emergency department accompanied by his son for chief complaint of chest pain. He was seen and fully evaluated in the emergency department. EKG was completed showing normal sinus rhythm at 69 bpm. Chest x-ray negative for acute cardiopulmonary process. Troponin < 0.012. CBC revealing mild leukocytosis with WBC count of 11.1 and consistent with chronic anemia with hemoglobin of 10.5 with baseline hemoglobin of 11.9. BMP showing no significant abnormalities. Liver profile revealing an elevated AST of 104 and alkaline phosphatase of 988. Patient admitted under our services with consultation to cardiology for continued close medical management. Patient was seen and fully evaluated at the bedside. He reports that he was sleeping yesterday evening and was awoken by siginificant pressure in his chest. Patient states he never experienced pressure like this ever in the past. He reports initially it seemed to improve but then seemed to radiate into his left shoulder accompanied by left arm numbness and shortness of breath. Patient reports he did take some nitroglycerin at home which seemed to improve or lessen the pressure he was experiencing and this is when he thought it was important to let his son know what was going on so he could get it checked out. Patient states leading up to this he experienced a nosebleed one week and went to the emergency department for treatment and was taken off of his daily aspirin. Patient states since nosebleed and stopping aspirin he has also had increased weakness and decreased appetite. Patient denies having any other complaints at this time including recent illness, fevers, chills, diaphoresis, headache, lightheadedness, dizziness, palpitations, cough or congestion, abdominal pain, nausea, vomiting, or experiencing any swelling or focal weakness in extremities. Pt follows outpatient with Dr. Barros. Review of systems: Pertinent positives and negatives as discussed in HPI, a complete review of systems was performed and all other systems are negative. Physical exam: General: non toxic, no distress, appears at stated age. Thin build. Derm: warm, dry Head: atraumatic, normocephalic, symmetric Eyes: no lid lag, anicteric sclera Mouth: no lip lesion, mucus membranes dry Cardiovascular: S1-S2 normal with regular rate and rhythm. No murmurs, gallops, or rubs noted. Posterior tibial pulses palpated bilaterally. Cap refill less than 2 seconds. Lungs: Respirations even, regular, and unlabored on room air. Lungs clear to auscultation bilaterally with no wheezes, rhonchi, or rales noted. No accessory muscle usage. Abdominal: soft, nontender to palpation, no guarding, no appreciable organ omegaly Ext: no gross muscle atrophy, no edema, no contractures Neuro: GCS 15. Speech clear. Resting tremors noted. Psych: Alert, oriented, appropriate affect Assessment and Plan of Care: Chest pain, possibly secondary to unstable angina -EKG was completed showing normal sinus rhythm at 69 bpm. Chest x-ray negative for acute cardiopulmonary process. Troponin < 0.012. -Cardiology consult -Telemetry monitoring -Trend troponins -Heparin infusion, pharmacy to dose -Nitro paste -Cardiac diet, nothing by mouth at midnight for possible cardiac cath -Aspirin, atorvastatin, and metoprolol -Lipid profile and Hgb A1c with a.m. labs. Elevated liver enzymes -AST 104 and alkaline phosphatase 988. -Abdominal ultrasound -Continued close monitoring with repeat a.m. labs. History of coronary artery disease with previous stenting to RCA -Echocardiogram completed 12/23/19 revealing a normal EF of 55-60% with no significant valvular abnormalities -Cardiac cath 05/16/18 resulted in stenting to RCA -Continue daily medication management with aspirin, atorvastatin, metoprolol, amlodipine, and lisinopril. Hypertension -Monitor vital signs and continue daily medication management with amlodipine, lisinopril and metoprolol. Hyperlipidemia -Continue daily medication management with atorvastatin. -Lipid profile with a.m. labs. Type II [id number]-qmltczegk diabetes mellitus -Glycemic protocol with NovoLog sliding scale. Parkinson's disease -Safe and supportive care. -Fall precautions The patient is admitted with an anticipated less than 2 midnight stay for e valuation of chest pain and to rule out ACS. CODE STATUS: Full code DVT prophylaxis: Heparin Discussed with: Patient and his son at bedside Anticipated discharge date: Clinical course to determine Anticipated discharge place: Home A total of 45 minutes was spent on the care of this complex patient more than 50% of the time was spent in counseling and care coordination. Past Medical History Past Medical History: Coronary Artery Disease (CAD), Cancer, Diabetes Mellitus, Hypertension, Neurologic Disorder Additional Past Medical History / Comment(s): Hx skin Cancer on L arm, parkinson's History of Any Multi-Drug Resistant Organisms: None Reported Past Surgical History: Back Surgery, Heart Catheterization With Stent Additional Past Surgical History / Comment(s): Skin CA removed from L arm; Colonoscopy x2 Past Anesthesia/Blood Transfusion Reactions: No Reported Reaction Date of Last Stent Placement:: 04/12/18 Past Psychological History: No Psychological Hx Reported Smoking Status: Never smoker Past Alcohol Use History: None Reported Past Drug Use History: None Reported - Past Family History Mother Family Medical History: No Reported History Additional Family Medical History / Comment(s): mother alive ; 100 on 05/09/18 Medications and Allergies Home Medications Medication Instructions Recorded Confirmed Type Gabapentin [Neurontin] 100 mg PO TID 04/12/18 02/18/21 History Aspirin 81 mg PO DAILY chew 04/13/18 02/18/21 Rx Atorvastatin [Lipitor] 80 mg PO HS 30 Days #30 tab 04/13/18 02/18/21 Rx Metoprolol Tartrate [Lopressor] 25 mg PO TID 06/06/20 02/18/21 History Nitroglycerin Sl Tabs [Nitrostat] 0.4 mg SUBLINGUAL Q5M PRN 06/06/20 02/18/21 History amLODIPine BESYLATE/BENAZEPRIL 1 cap PO BID 06/06/20 02/18/21 History [amLODIPine BESYLATE/BENAZEPRIL 5-10 MG] Cephalexin [Keflex] 500 mg PO Q12HR 02/18/21 02/18/21 History sitaGLIPtin PHOS/metFORMIN HCL 1 tab PO DAILY 02/18/21 02/18/21 History [Janumet 50-500 mg Tablet] Allergies Allergy/AdvReac Type Severity Reaction Status Date / Time No Known Allergies Allergy Verified 02/18/21 13:14 Physical Exam Vitals: Vital Signs Temp Pulse Resp BP Pulse Ox 02/18/21 11:54 62 16 164/76 97 02/18/21 10:55 98.8 F 69 18 162/94 99 Intake and Output 06/02/18/21 02/18/21 22:59 06:59 14:59 Other: Weight 64.41 kg Results CBC & Chem 7: 02/18/21 11:16 02/18/21 11:16 Labs: Abnormal Lab Results - Last 24 Hours (Table) 02/18/21 02/18/21 02/18/21 Range/Units 11:16 11:16 11:16 WBC 11.1 H (3.8-10.6) k/uL RBC 3.43 L (4.30-5.90) m/uL Hgb 10.5 L (13.0-17.5) gm/dL Hct 29.7 L (39.0-53.0) % Neutrophils # 9.2 H (1.3-7.7) k/uL Lymphocytes # 0.9 L (1.0-4.8) k/uL PT 13.4 H (9.0-12.0) sec INR 1.3 H (<1.2) BUN 24 H (9-20) mg/dL Glucose 217 H (74-99) mg/dL AST 104 H (17-59) U/L Alkaline Phosphatase 988 H (38-126) U/L <Veronica Dorantes - Last Filed: 02/18/21 18:09> Physical Exam Osteopathic Statement: *. No significant issues noted on an osteopathic structural exam other than those noted in the History and Physical/Consult. Vitals: Vital Signs Temp Pulse Pulse Resp BP BP Pulse Ox 02/18/21 17:45 98.2 F 65 16 168/75 100 02/18/21 16:00 60 18 153/67 97 02/18/21 15:00 62 16 156/70 98 02/18/21 14:50 64 18 133/70 98 02/18/21 14:00 64 17 154/68 98 02/18/21 13:00 95 155/73 02/18/21 12:00 62 18 164/76 98 02/18/21 11:54 62 16 164/76 97 02/18/21 11:15 69 18 02/18/21 10:55 98.8 F 69 18 162/94 99 Intake and Output 02/18/21 02/18/21 02/18/21 06:59 14:59 22:59 Other: Weight 64.41 kg 64.41 kg Results CBC & Chem 7: 02/18/21 11:16 02/18/21 11:16 Labs: Abnormal Lab Results - Last 24 Hours (Table) 02/18/21 02/18/21 02/18/21 Range/Units 11:16 11:16 11:16 WBC 11.1 H (3.8-10.6) k/uL RBC 3.43 L (4.30-5.90) m/uL Hgb 10.5 L (13.0-17.5) gm/dL Hct 29.7 L (39.0-53.0) % Neutrophils # 9.2 H (1.3-7.7) k/uL Lymphocytes # 0.9 L (1.0-4.8) k/uL PT 13.4 H (9.0-12.0) sec INR 1.3 H (<1.2) BUN 24 H (9-20) mg/dL Glucose 217 H (74-99) mg/dL AST 104 H (17-59) U/L Alkaline Phosphatase 988 H (38-126) U/L Assessment and Plan Assessment: Patient seen and examined independently. Patient was also seen by Jamaal Montejo NP and case was discussed. I am in agreement with subjective, physical exam, assessment and plan as written above and amended below. Current chest pain is a 1/5 and was a 5/5 at its worst before he took the nitro. General: non toxic, no distress, appears at stated age Derm: warm, dry Head: atraumatic, normocephalic, symmetric Eyes: EOMI, no lid lag, anicteric sclera Mouth: no lip lesion, mucus membranes moist Cardiovascular: S1S2 reg, no murmur, positive posterior tibial pulse bilateral, Lungs: CTA bilateral, no rhonchi, no rales , no accessory muscle use Neuro: CN II-XI grossly intact, no focal neuro deficits, mast feces, hypophonia, resting tremor Thorough record review was performed patient underwent Persantine stress test on 12/23/27 which showed no stress-induced ischemia. He does have known left bundle branch block. Patient underwent staged percutaneous coronary intervention in 2018 with initial stenting to the circumflex artery, and subsequent stenting to the RCA. He follows with Dr. Barros on a regular basis. We will hold his metformin in case IV contrast dye is to be used. Of note patient has had a poor reaction to Ambien the past resulting in confusion and falls. We'll order as needed melatonin.
[2021-02-18] MEDS: lisinopriL 20 MG TAB PO SCH (16:08)
[2021-02-18] MEDS: GABAPENTIN 100 MG CAP PO SCH ×2 (16:46→20:17)
[2021-02-18] MEDS: METOPROLOL TARTRATE 25 MG TAB PO SCH ×2 (16:46→20:17)
[2021-02-18 17:13] LABS: Glucose,Whole Blood 97 mg/dL (75-99)
[2021-02-18] MEDS: INSULIN ASPART (NovoLOG) 100 UNIT/ML VIAL SQ SCH ×2 (18:13→20:17)
[2021-02-18] MEDS: NITROGLYCERIN OINT 1 INCH/GM PACKET TOPICAL SCH (18:14)
--- NOTE | 2021-02-18 18:16 | US ---
EXAMINATION TYPE: US abdomen limited DATE OF EXAM: 02/18/2021 COMPARISON: NONE CLINICAL HISTORY: elevated liver enzymes. Pain EXAM MEASUREMENTS: Liver Length: 16.8 cm Gallbladder Wall: .3 cm CBD: .5 cm Right Kidney: 11.1 x 4.7 x 4.0 cm Pancreas: Obscured by bowel gas Liver: wnl Gallbladder: wnl Evidence for sonographic Zaman's sign: No CBD: wnl Right Kidney: wnl IMPRESSION: No evidence of gallstones or dilated ducts. No focal liver defect.
[2021-02-18 20:11] LABS: Glucose,Whole Blood 133 mg/dL (75-99)
[2021-02-18] MEDS: ATORVASTATIN 80 MG TAB PO SCH (20:16)
[2021-02-18] MEDS: amLODIPine 5 MG TAB PO SCH (20:17)
[2021-02-18] MEDS: CEPHALEXIN 500 MG CAP PO SCH (20:17)
[2021-02-19] MEDS: NITROGLYCERIN OINT 1 INCH/GM PACKET TOPICAL SCH ×2 (01:23→06:07)
[2021-02-19 07:18] LABS: Glucose,Whole Blood 121 mg/dL (75-99)
[2021-02-19] MEDS: INSULIN ASPART (NovoLOG) 100 UNIT/ML VIAL SQ SCH ×4 (08:12→21:45)
[2021-02-19] MEDS ORDERED: REGADENOSON 0.4 MG/5 ML SYRINGE IV PRN (08:21)
[2021-02-19] MEDS ORDERED: AMINOPHYLLINE 500 MG/20 ML VIAL IV PRN (08:21)
[2021-02-19] MEDS ORDERED: CAFFEINE CITRATE 60 MG/3 ML VIAL IV PRN (08:21)
[2021-02-19] MEDS: CEPHALEXIN 500 MG CAP PO SCH ×2 (08:28→21:41)
[2021-02-19] MEDS: lisinopriL 20 MG TAB PO SCH (08:28)
[2021-02-19] MEDS: GABAPENTIN 100 MG CAP PO SCH ×3 (08:28→21:41)
[2021-02-19] MEDS: amLODIPine 5 MG TAB PO SCH ×2 (08:28→21:41)
[2021-02-19] MEDS: LINAGLIPTIN 5 MG TABLET PO SCH (08:29)
[2021-02-19] MEDS: METOPROLOL TARTRATE 25 MG TAB PO SCH ×3 (08:29→21:42)
[2021-02-19] MEDS: ASPIRIN 81 MG PO SCH (08:31)
[2021-02-19] MEDS ORDERED: metFORMIN 500 MG TAB PO SCH (09:00)
[2021-02-19] MEDS ORDERED: ASPIRIN 325 MG TAB PO SCH (09:00)
[2021-02-19 09:06] LABS: Basophils # (A) 0.05 X 10*3/uL (0.00-0.10); Basophils % (A) 0.5 %; Eosinophils # (A) 0.45 X 10*3/uL (0.04-0.35); Eosinophils % (A) 4.6 %; HCT 30.8 % (39.6-50.0); HGB 10.2 g/dL (13.0-17.0); Lymphocytes # (A) 1.64 X 10*3/uL (0.90-5.00); Lymphocytes % (A) 16.7 %; MCH 29.8 pg (27.0-32.0); MCHC 33.1 g/dL (32.0-37.0); MCV 90.1 fL (80.0-97.0); Mean Platelet Volume 11.8 fL (9.5-12.2); Monocytes % (A) 8.1 %; Neutrophils # (A) 6.76 X 10*3/uL (1.80-7.70); Neutrophils % (A) 68.7 %; Platelet Count 167 X 10*3/uL (140-440); RBC 3.42 X 10*6/uL (4.40-5.60); WBC 9.84 X 10*3/uL (4.50-10.00)
[2021-02-19 09:37] LABS: African American GFR (CKD) 79.7 (60.0-200.0); Albumin 3.7 g/dL (3.80-4.90); Albumin/Globulin Ratio 1.61 (1.60-3.17); Anion Gap 9.3 mmol/L (4.00-12.00); Calcium 8.5 mg/dL (8.7-10.3); Carbon Dioxide 24.7 mmol/L (21.6-31.8); Chol/HDL Ratio 2.66; Globulin 2.3 g/dL (1.6-3.3); LDL Cholesterol,Calculated 35.2 mg/dL (0.0-131.0); Magnesium 1.8 mg/dL (1.5-2.4); Non-African American GFR(CKD) 68.8 (60.0-200.0); Potassium 4.1 mmol/L (3.5-5.5); VLDL Calculation 17.8 mg/dL (5.00-40.00)
--- NOTE | 2021-02-19 10:02 | P.PN ---
Subjective Progress Note Date: 02/19/21 Hospital course: Patient is an 85-year-old male with a past medical history of CAD with stenting to RCA in [address] Dominguez, hypertension, hyperlipidemia, type II zvk-rcdvlyg-tavvgevft diabetes mellitus, Parkinson's disease, and mild dementia. Patient presented to the emergency department accompanied by his son for chief complaint of chest pain. He was seen and fully evaluated in the emergency department. EKG was completed showing normal sinus rhythm at 69 bpm. Chest x- ray negative for acute cardiopulmonary process. Troponin < 0.012. CBC revealing mild leukocytosis with WBC count of 11.1 and consistent with chronic anemia with hemoglobin of 10.5 with baseline hemoglobin of 11.9. BMP showing no significant abnormalities. Liver profile revealing an elevated AST of 104 and alkaline phosphatase of 988. Patient admitted under our services with con sultation to cardiology for continued close medical management. Patient was seen and fully evaluated at the bedside. He reports that he was sleeping yesterday evening and was awoken by siginificant pressure in his chest. Patient states he never experienced pressure like this ever in the past. He reports initially it seemed to improve but then seemed to radiate into his left shoulder accompanied by left arm numbness and shortness of breath. Patient reports he did take some nitroglycerin at home which seemed to improve or lessen the pressure he was experiencing and this is when he thought it was important to let his son know what was going on so he could get it checked out. Patient states leading up to this he experienced a nosebleed one week and went to the emergency department for treatment and was taken off of his daily aspirin. Patient states since nosebleed and stopping aspirin he has also had increased weakness and decreased appetite. Patient denies having any other complaints at this time including recent illness, fevers, chills, diaphoresis, headache, lightheadedness, di zziness, palpitations, cough or congestion, abdominal pain, nausea, vomiting, or experiencing any swelling or focal weakness in extremities. Pt follows outpatient with Dr. Barros. Physical exam: Patient seen and fully evaluated at the bedside this morning. He has remained on heparin infusion overnight along with Nitropaste 1 inch every 6 hours. Patient reports complete resolution of chest pain at this time. He was evaluate d by cardiology with plans to take for Lexiscan stress test later today. Patient denies having any other complaints or needs at this time including headache, lightheadedness, dizziness, changes in vision or hearing, palpitations, shortness of breath, or experiencing any numbness/pain/weakness in his extremities. General: non toxic, no distress, appears at stated age. Thin build. Derm: warm, dry Head: atraumatic, normocephalic, symmetric Eyes: no lid lag, anicteric sclera Mouth: no lip lesion, mucus membranes dry Cardiovascular: S1-S2 normal with regular rate and rhythm. No murmurs, gallops, or rubs noted. Posterior tibial pulses palpated bilaterally. Cap refill less than 2 seconds. Lungs: Respirations even, regular, and unlabored on room air. Lungs clear to auscultation bilaterally with no wheezes, rhonchi, or rales noted. No accessory muscle usage. Abdominal: soft, nontender to palpation, no guarding, no appreciable organomegaly Ext: no gross muscle atrophy, no edema, no contractures Neuro: GCS 15. Speech clear. Resting tremors noted. Psych: Alert, oriented, appropriate affect Assessment and Plan of Care: Chest pain, possibly secondary to unstable angina -EKG was completed showing normal sinus rhythm at 69 bpm. Chest x-ray negative for acute cardiopulmonary process. Troponin < 0.012. -Echocardiogram completed revealing a preserved EF of 50-55% with no stenosis or significant valvular abnormalities present. -Cardiology following, taking patient for Lexiscan stress test today. -Telemetry monitoring -Troponins trended and negative at < 0.012 x 3 -Heparin infusion, pharmacy to dose -Nitro paste -Cardiac diet, nothing by mouth at midnight for possible cardiac cath -Aspirin, atorvastatin, and metoprolol -Lipid profile showing no significant abnormalities with the exception of slightly low HDL of 32. -Hgb A1c pending. Elevated liver enzymes, improving -AST 104 and alkaline phosphatase 988 upon admission. Repeat morning labs r eveal AST of 47 and alkaline phosphatase of 966. -Abdominal ultrasound normal findings showing no evidence of gallstones or dilated ducts with no focal liver deficits. -Continued close monitoring with repeat a.m. labs. History of coronary artery disease with previous stenting to RCA -Echocardiogram completed 12/23/19 revealing a normal EF of 55-60% with no significant valvular abnormalities -Cardiac cath 05/16/18 resulted in stenting to RCA -Continue daily medication management with aspirin, atorvastatin, metoprolol, amlodipine, and lisinopril. Hypertension -Monitor vital signs and continue daily medication management with amlodipine, lisinopril and metoprolol. Hyperlipidemia -Continue daily medication management with atorvastatin. -Lipid profile with a.m. labs. Type II mft-bhblmni-xvrytctxx diabetes mellitus -Glycemic protocol with NovoLog sliding scale. Parkinson's disease -Safe and supportive care. -Fall precautions CODE STATUS: Full code DVT prophylaxis: Heparin Discussed with: Patient and his son at bedside Anticipated discharge date: Clinical course to determine Anticipated discharge place: Home A total of 45 minutes was spent on the care of this complex patient more than 50% of the time was spent in counseling and care coordination. Objective - Vital Signs Vital signs: Vital Signs Temp 98.4 F 02/19/21 07:00 Pulse 66 02/19/21 07:00 Resp 17 02/19/21 07:00 BP 165/70 02/19/21 07:00 Pulse Ox 98 02/19/21 07:00 Intake & Output 02/18/21 02/19/21 02/19/21 18:59 06:59 18:59 Intake Total 120.315 0 Balance 120.315 0 Weight 64.41 kg Intake: Intake, IV Titration 120.315 Amount Heparin Sod,Pork in 0.45% 120.315 NaCl 25,000 unit In 0.45 % NaCl 1 250ml.bag @ 12 UNITS/KG/HR 7.729 mls/hr IV .Q24H SHANELL Rx#: [id number] Oral 0 Other: Voiding Method Toilet Urinal # Voids 2 1 - Labs CBC & Chem 7: 02/19/21 05:40 02/19/21 05:40 Labs: Abnormal Lab Results - Last 24 Hours (Table) 02/18/21 02/18/21 02/18/21 Range/Units 11:16 11:16 11:16 WBC 11.1 H (3.8-10.6) k/uL RBC 3.43 L (4.30-5.90) m/uL Hgb 10.5 L (13.0-17.5) gm/dL Hct 29.7 L (39.0-53.0) % Immature Gran # (0.00-0.04) X 10*3/uL Neutrophils # 9.2 H (1.3-7.7) k/uL Lymphocytes # 0.9 L (1.0-4.8) k/uL Eosinophils # (0.04-0.35) X 10*3/uL PT 13.4 H (9.0-12.0) sec INR 1.3 H (<1.2) APTT (22.0-30.0) sec BUN 24 H (9-20) mg/dL BUN/Creatinine Ratio (12.00-20.00) Ratio Glucose 217 H (74-99) mg/dL POC Glucose (mg/dL) (75-99) mg/dL Calcium (8.7-10.3) mg/dL AST 104 H (17-59) U/L Alkaline Phosphatase 988 H (38-126) U/L Total Protein (6.2-8.2) g/dL Albumin (3.80-4.90) g/dL HDL Cholesterol (40.0-60.0) mg/dL 02/18/21 02/18/21 02/19/21 Range/Units 20:09 20:53 05:40 WBC (3.8-10.6) k/uL RBC (4.30-5.90) m/uL Hgb (13.0-17.5) gm/dL Hct (39.0-53.0) % Immature Gran # (0.00-0.04) X 10*3/uL Neutrophils # (1.3-7.7) k/uL Lymphocytes # (1.0-4.8) k/uL Eosinophils # (0.04-0.35) X 10*3/uL PT (9.0-12.0) sec INR (<1.2) APTT 57.4 H (22.0-30.0) sec BUN (9-20) mg/dL BUN/Creatinine Ratio 23.00 H (12.00-20.00) Ratio Glucose 173 H (74-99) mg/dL POC Glucose (mg/dL) 133 H (75-99) mg/dL Calcium 8.5 L (8.7-10.3) mg/dL AST 47 H (17-59) U/L Alkaline Phosphatase 966 H (38-126) U/L Total Protein 6.0 L (6.2-8.2) g/dL Albumin 3.70 L (3.80-4.90) g/dL HDL Cholesterol 32.0 L (40.0-60.0) mg/dL 02/19/21 02/19/21 02/19/21 Range/Units 05:40 05:40 07:17 WBC (3.8-10.6) k/uL RBC 3.42 L (4.30-5.90) m/uL Hgb 10.2 L (13.0-17.5) gm/dL Hct 30.8 L (39.0-53.0) % Immature Gran # 0.14 H (0.00-0.04) X 10*3/uL Neutrophils # (1.3-7.7) k/uL Lymphocytes # (1.0-4.8) k/uL Eosinophils # 0.45 H (0.04-0.35) X 10*3/uL PT (9.0-12.0) sec INR (<1.2) APTT 53.3 H (22.0-30.0) sec BUN (9-20) mg/dL BUN/Creatinine Ratio (12.00-20.00) Ratio Glucose (74-99) mg/dL POC Glucose (mg/dL) 121 H (75-99) mg/dL Calcium (8.7-10.3) mg/dL AST (17-59) U/L Alkaline Phosphatase (38-126) U/L Total Protein (6.2-8.2) g/dL Albumin (3.80-4.90) g/dL HDL Cholesterol (40.0-60.0) mg/dL
--- NOTE | 2021-02-19 10:21 | P.CRDCN ---
History of Present Illness Consult date: 02/19/21 History of present illness: HISTORY OF PRESENT ILLNESS: This is a 85-year-old male with a past medical history significant for coronary artery disease with previous stenting, hypertension, hyperlipidemia, diabetes mellitus, mild dementia, and Parkinson's disease. Patient follows in the office with Dr. Barros. We have been asked to see the patient in consultation for chest pain. Patient examined at the bedside. Patient states Monday he woke up in his usual state of health. He states shortly after awakening he started having left arm numbness and tingling. He states it eventually went away on its own. He states later that evening he went to bed and woke up around 2 AM with a heavy pressure in his chest. He denies any arm tingling or numbness at that time. He reports feeling short of breath. He denies nausea or vom iting. Denied feeling sweaty. He states once the pressure got to a 5/10 he took sublingual nitro 2 doses and within an hour his pain went away and he went back to sleep. In the morning he told his son about his pain and he came to the emergency room for further evaluation. Patient states he has been compliant with his medications. However he does report he was taken off aspirin approximately one week ago secondary to a nose bleed. EKG reveals sinus mechanism with no signs of acute ischemia Chest xray negative for acute process Laboratory data: WBC 9.4. Hemoglobin 10.2. Platelet count 167. Sodium 139. Potassium 4.1. BUN 23. Creatinine 1.0. Magnesium 1.8. Troponin negative 3. Current home cardiac medications include aspirin 81 mg daily, Lipitor 80 mg daily, metoprolol tartrate 25 mg 3 times a day, and amlodipine/Benzapril 5-10mg Most recent echocardiogram obtained in December 2019 reveals ejection fraction 55- 60%, trace mitral regurgitation, trace tricuspid regurgitation Cardiac catheterization history: April 2018 with stent placement to the circumflex and RCA REVIEW OF SYSTEMS: At the time of my exam: CONSTITUTIONAL: Denies fever or chills. HEENT: Denies blurred vision, vision changes, or eye pain. Denies hemoptysis CARDIOVASCULAR: Denies chest pain. Denies orthopnea. Denies PND. Denies palpitations RESPIRATORY: Denies shortness of breath. GASTROINTESTINAL: Denies abdominal pain. Denies nausea or vomiting. HEMATOLOGIC: Denies bleeding disorders. GENITOURINARY: Denies any blood in urine. SKIN: Denies pruitis. Denies rash. PHYSICAL EXAM: VITAL SIGNS: Reviewed. GENERAL: Well-developed in no acute distress. HEENT: Head is normocephalic. Pupils are equal, round. Sclerae anicteric. Mucous membranes of the mouth are moist. Neck supple. No JVD or thyromegaly LUNGS: Respirations even and unlabored. Lungs essentially clear to auscultation bilaterally. HEART: Regular rate and rhythm. S1 and S2 heard. ABDOMEN: Soft. Nondistended. Nontender. EXTREMITIES: Normal range of motion. No clubbing or cyanosis. Peripheral pulses intact. No lower extremity edema NEUROLOGIC: Awake and alert. Oriented x 3. ASSESSMENT: Chest pain Coronary artery disease with previous stent placement to the circumflex and RCA, 2018 Hypertension Hyperlipidemia Diabetes mellitus Parkinson's disease Mild dementia PLAN: An acute coronary event has been ruled out Resume home cardiac medications Obtain 2-D echo to assess cardiac structure and function Patient to undergo a Lexiscan stress test to undergo stress-induced ischemia Further recommendations pending patient's course Nurse practitioner note has been reviewed by physician. Signing provider agrees with the documented findings, assessment, and plan of care. Past Medical History Past Medical History: Coronary Artery Disease (CAD), Cancer, Diabetes Mellitus, Hypertension, Neurologic Disorder Additional Past Medical History / Comment(s): Hx skin Cancer on L arm, parkinson's. Had nasal packing r/t nose bleeds within the last week. February 04, 2021 History of Any Multi-Drug Resistant Organisms: None Reported Past Surgical History: Back Surgery, Heart Catheterization With Stent Additional Past Surgical History / Comment(s): Skin CA removed from L arm; Colonoscopy x2 Past Anesthesia/Blood Transfusion Reactions: No Reported Reaction Date of Last Stent Placement:: 04/12/18 Past Psychological History: No Psychological Hx Reported Smoking Status: Never smoker Past Alcohol Use History: None Reported Past Drug Use History: None Reported - Past Family History Mother Family Medical History: No Reported History Additional Family Medical History / Comment(s): mother alive ; 100 on 05/09/18 Medications and Allergies Home Medications Medication Instructions Recorded Confirmed Type Gabapentin [Neurontin] 100 mg PO TID 04/12/18 02/18/21 History Aspirin 81 mg PO DAILY chew 04/13/18 02/18/21 Rx Atorvastatin [Lipitor] 80 mg PO HS 30 Days #30 tab 04/13/18 02/18/21 Rx Metoprolol Tartrate [Lopressor] 25 mg PO TID 06/06/20 02/18/21 History Nitroglycerin Sl Tabs [Nitrostat] 0.4 mg SUBLINGUAL Q5M PRN 06/06/20 02/18/21 History amLODIPine BESYLATE/BENAZEPRIL 1 cap PO BID 06/06/20 02/18/21 History [amLODIPine BESYLATE/BENAZEPRIL 5-10 MG] Cephalexin [Keflex] 500 mg PO Q12HR 02/18/21 02/18/21 History sitaGLIPtin PHOS/metFORMIN HCL 1 tab PO DAILY 02/18/21 02/18/21 History [Janumet 50-500 mg Tablet] Allergies Allergy/AdvReac Type Severity Reaction Status Date / Time No Known Allergies Allergy Verified 02/18/21 13:14 Physical Exam Vitals: Vital Signs Temp Pulse Pulse Resp BP BP Pulse Ox 02/19/21 07:00 98.4 F 66 17 165/70 98 02/19/21 02:00 98.9 F 61 16 154/74 97 02/18/21 20:24 98 02/18/21 19:44 99.1 F 65 16 144/67 98 02/18/21 17:45 98.2 F 65 16 168/75 100 02/18/21 16:00 60 18 153/67 97 02/18/21 15:00 62 16 156/70 98 02/18/21 14:50 64 18 133/70 98 02/18/21 14:00 64 17 154/68 98 02/18/21 13:00 95 155/73 02/18/21 12:00 62 18 164/76 98 02/18/21 11:54 62 16 164/76 97 02/18/21 11:15 69 18 02/18/21 10:55 98.8 F 69 18 162/94 99 Intake and Output 02/18/21 02/19/21 02/19/21 22:59 06:59 14:59 Intake Total 53.459 66.856 0 Balance 53.459 66.856 0 Intake: Intake, IV Titration 53.459 66.856 Amount Heparin Sod,Pork in 0.45% 53.459 66.856 NaCl 25,000 unit In 0.45 % NaCl 1 250ml.bag @ 12 UNITS/KG/HR 7.729 mls/hr IV .Q24H [facility] Rx#: [id number] Oral 0 Other: Voiding Method Toilet Toilet Urinal Urinal # Voids 1 2 1 Weight 64.41 kg Results 02/19/21 05:40 02/19/21 05:40 Cardiac Enzymes 02/18/21 02/18/21 02/18/21 Range/Units 11:16 11:16 14:53 AST 104 H (17-59) U/L Troponin I <0.012 <0.012 (0.000-0.034) ng/mL 02/18/21 02/19/21 Range/Units 20:53 05:40 AST 47 H (17-59) U/L Troponin I <0.012 (0.000-0.034) ng/mL Coagulation 02/18/21 02/18/21 02/19/21 Range/Units 11:16 20:53 05:40 PT 13.4 H (9.0-12.0) sec APTT 30.0 57.4 H 53.3 H (22.0-30.0) sec Lipids 02/19/21 Range/Units 05:40 Triglycerides 89.0 (0.0-149.0) mg/dL Cholesterol 85 (0-200) mg/dL HDL Cholesterol 32.0 L (40.0-60.0) mg/dL Cholesterol/HDL Ratio 2.66 CBC 02/18/21 02/19/21 Range/Units 11:16 05:40 WBC 11.1 H 9.84 (3.8-10.6) k/uL RBC 3.43 L 3.42 L (4.30-5.90) m/uL Hgb 10.5 L 10.2 L (13.0-17.5) gm/dL Hct 29.7 L 30.8 L (39.0-53.0) % Plt Count 166 167 (150-450) k/uL Comprehensive Metabolic Panel 02/18/21 02/19/21 Range/Units 11:16 05:40 Sodium 137 139 (137-145) mmol/L Potassium 4.3 4.1 (3.5-5.1) mmol/L Chloride 103 105 (98-107) mmol/L Carbon Dioxide 25 24.7 (22-30) mmol/L BUN 24 H 23.0 (9-20) mg/dL Creatinine 0.91 1.0 (0.66-1.25) mg/dL Glucose 217 H 173 H (74-99) mg/dL Calcium 9.3 8.5 L (8.4-10.2) mg/dL AST 104 H 47 H (17-59) U/L ALT 13 20 (4-49) U/L Alkaline Phosphatase 988 H 966 H (38-126) U/L Total Protein 6.7 6.0 L (6.3-8.2) g/dL Albumin 3.9 3.70 L (3.5-5.0) g/dL Current Medications Generic Name Dose Route Start Last Admin Trade Name Freq PRN Reason Stop Dose Admin Acetaminophen 650 mg 02/18/21 15:27 Acetaminophen Tab 325 Mg Tab PO Q6HR PRN Mild Pain or Fever > 100.5 Aminophylline 100 mg 02/19/21 08:21 Aminophylline 500 Mg/20 Ml Vial IV 02/19/21 12:21 ONCE PRN Patient Response Amlodipine Besylate 5 mg 02/18/21 21:00 02/19/21 08:28 Amlodipine 5 Mg Tab PO 5 mg BID SHANELL Administration Aspirin 81 mg 02/19/21 09:00 02/19/21 08:31 Aspirin 81 Mg PO Not Given DAILY SHANELL Atorvastatin Calcium 80 mg 02/18/21 21:00 02/18/21 20:16 Atorvastatin 80 Mg Tab PO 80 mg HS SHANELL Administration Caffeine Citrate 60 mg 02/19/21 08:21 Caffeine Citrate 60 Mg/3 Ml Vial IV 02/19/21 12:21 ONCE PRN Patient Response Cephalexin 500 mg 02/18/21 21:00 02/19/21 08:28 Cephalexin 500 Mg Cap PO 500 mg Q12HR SHANELL Administration Gabapentin 100 mg 02/18/21 16:00 02/19/21 08:28 Gabapentin 100 Mg Cap PO 100 mg TID SHANELL Administration Insulin Aspart 0 unit 02/18/21 17:30 02/19/21 08:12 Insulin Aspart (Novolog) 100 Unit/Ml Vial SQ Not Given ACHS SHANELL Protocol Linagliptin 5 mg 02/19/21 09:00 02/19/21 08:29 Linagliptin 5 Mg Tablet PO 5 mg DAILY SHANELL Administration Lisinopril 20 mg 02/18/21 09:00 02/19/21 08:28 Lisinopril 20 Mg Tab PO 20 mg DAILY [facility] Administration Melatonin 3 mg 02/18/21 15:27 Melatonin 3 Mg Tablet PO HS PRN Insomnia Metoprolol Tartrate 25 mg 02/18/21 16:00 02/19/21 08:29 Metoprolol Tartrate 25 Mg Tab PO Not Given TID [facility] Naloxone HCl 0.2 mg 02/18/21 15:27 Naloxone 0.4 Mg/Ml 1 Ml Vial IV Q2M PRN Opioid Reversal Nitroglycerin 0.4 mg 02/18/21 14:10 Nitroglycerin Sl Tabs 0.4 Mg Tab SUBLINGUAL Q5M PRN Chest Pain Nitroglycerin 1 inch 02/18/21 18:00 02/19/21 06:07 Nitroglycerin Oint 1 Inch/Gm Packet TOPICAL Not Given Q6HR [facility] Ondansetron HCl 4 mg 02/18/21 15:27 Ondansetron 4 Mg/2 Ml Vial IVP Q8HR PRN Nausea And Vomiting Regadenoson 0.4 mg 02/19/21 08:21 Regadenoson 0.4 Mg/5 Ml Syringe IV 02/19/21 12:21 ONCE PRN Per Protocol Intake and Output 02/18/21 02/19/21 02/19/21 22:59 06:59 14:59 Intake Total 53.459 66.856 0 Balance 53.459 66.856 0 Intake: Intake, IV Titration 53.459 66.856 Amount Heparin Sod,Pork in 0.45% 53.459 66.856 NaCl 25,000 unit In 0.45 % NaCl 1 250ml.bag @ 12 UNITS/KG/HR 7.729 mls/hr IV .Q24H [facility] Rx#: [id number] Oral 0 Other: Voiding Method Toilet Toilet Urinal Urinal # Voids 1 2 1 Weight 64.41 kg 02/19/21 05:40 02/19/21 05:40
--- NOTE | 2021-02-19 11:01 | ECHOF ---
Referral Reason:LV function MEASUREMENTS -------- HEIGHT: 172.7 cm WEIGHT: 64.4 kg BP: RVIDd: 3.1 cm (< 3.3) IVSd: 1.2 cm (0.6 - 1.1) LVIDd: 3.5 cm (3.9 - 5.3) LVPWd: 1.3 cm (0.6 - 1.1) IVSs: 1.2 cm LVIDs: 2.9 cm LVPWs: 1.3 cm LA Diam: 4.0 cm (2.7 - 3.8) Ao Diam: 3.0 cm (2.0 - 3.7) AV Cusp: 1.3 cm (1.5 - 2.6) MV EXCURSION: 18.525 mm (> 18.000) MV EF SLOPE: 77 mm/s (70 - 150) EPSS: 0.3 cm MV E Matthew: 0.57 m/s MV DecT: 308 ms MV A Matthew: 0.85 m/s MV E/A Ratio: 0.67 RAP: 5.00 mmHg RVSP: 34.20 mmHg FINDINGS -------- Sinus rhythm. This was a technically adequate study. The left ventricular size is normal. There is mild concentric left ventricular hypertrophy. Overa ll left ventricular systolic function is low-normal with, an EF between 50 - 55 %. Basal lateral LV wall motion is hypokinetic. Basal inferior LV wall motion is hypokinetic. The right ventricle is normal in size. The left atrium is mildly dilated. The right atrial size is normal. The aortic valve is trileaflet, and appears structurally normal. No aortic stenosis or regurgitation. The mitral valve leaflets are mildly thickened. Mild mitral regurgitation is present. The tricuspid valve appears structurally normal. Mild tricuspid regurgitation present. Right vent ricular systolic pressure is normal at < 35 mmHg. The right ventricular systolic pressure, as measu red by Doppler, is 34.20mmHg. There is no pulmonic regurgitation present. The aortic root size is normal. There is no pericardial effusion. CONCLUSIONS -------- 1. There is mild concentric left ventricular hypertrophy. 2. Overall left ventricular systolic function is low-normal with, an EF between 50 - 55 %. 3. Basal lateral LV wall motion is hypokinetic. 4. Basal inferior LV wall motion is hypokinetic. 5. The left atrium is mildly dilated. 6. The aortic valve is trileaflet, and appears structurally normal. No aortic stenosis or regurgitati on. 7. The mitral valve leaflets are mildly thickened. 8. Mild mitral regurgitation is present. 9. Mild tricuspid regurgitation present. 10. There is no pericardial effusion. [employer]IAN: Lana Paul RDCS
[2021-02-19 11:48] LABS: Glucose,Whole Blood 136 mg/dL (75-99)
--- NOTE | 2021-02-19 12:35 | NM ---
EXAMINATION TYPE: NM stress lexiscan cardiolite DATE OF EXAM: 02/19/2021 COMPARISON: 12/23/2019 HISTORY: Chest pain TECHNIQUE: After the intravenous administration of 10.8 mCi Tc 99m Sestamibi - Cardiolite resting SP ECT images acquired 45 minutes post injection. The patient received 0.4mg Lexiscan, 21.5 mCi Tc 99m Sestamibi - Stress images obtained [address] injection FINDINGS: Review of stress and rest SPECT images demonstrates fixed defect involving the apical septal and apic al lateral myocardium. Small area of stress-induced reversible ischemia not excluded.. Gated analysi s shows normal wall motion with an estimated left ventricular ejection fraction of 31 %. IMPRESSION: 1. Resting ejection fraction only 31% correlate clinically. 2. There is an area of fixed defect suggestive of previous myocardial infarction involving the apex. A small area of stress-induced reversible ischemia in the adjacent region is not excluded correlate c linically.
[2021-02-19 12:58] LABS: Hemoglobin A1C 6.4 % (4.0-6.0)
--- NOTE | 2021-02-19 15:55 | EST ---
EXERCISE STRESS AGE: 85 SEX: M HT: 5'8" WT: 142 lbs PROTOCOL: Lexiscan STAGE: 4 DURATION OF EXERCISE: HEART RATE REST: 60 BLOOD PRESSURE REST: 152/65 MAXIMUM HEART RATE ACHIEVED: 78 MAXIMUM BLOOD PRESSURE: 152/65 85% MPHR: 100% MPHR: METS: INDICATIONS: Chest pain CLINICAL INFORMATION: Baseline rhythm is a sinus mechanism, rate of 60, left bundle branch block. Baseline blood pressure 152/65 mmHg. Patient received injection of Lexiscan. Electrocardiograph monitoring revealed no evidence of diagnostic ischemic ST deviation. Cardiolite was injected per protocol. CONCLUSION: 1. Nondiagnostic electrocardiograph stress testing. 2. Nuclear images will be reported separately. MMODL / IJN: [id number] /
[2021-02-19] MEDS: ISOSORBIDE MONONITRATE ER 30 MG TAB.ER.24H PO SCH (16:27)
[2021-02-19 17:13] LABS: Glucose,Whole Blood 133 mg/dL (75-99)
[2021-02-19 20:29] LABS: Glucose,Whole Blood 157 mg/dL (75-99)
[2021-02-19] MEDS: polyethylene glycoL 3350 17 GM POWD.PACK PO SCH (21:42)
[2021-02-19] MEDS: ATORVASTATIN 80 MG TAB PO SCH (21:50)
[2021-02-20] MEDS ORDERED: HEPARIN SODIUM,PORCINE 10,000 UNIT in SODIUM CHLORIDE 0.9% 1,000 ML IRRIGATION PRN (07:00)
[2021-02-20] MEDS ORDERED: HEPARIN SODIUM,PORCINE 2,500 UNIT in SODIUM CHLORIDE 0.9% 250 ML IRRIGATION PRN (07:00)
[2021-02-20 07:39] LABS: Glucose,Whole Blood 115 mg/dL (75-99)
[2021-02-20] MEDS: INSULIN ASPART (NovoLOG) 100 UNIT/ML VIAL SQ SCH ×4 (08:26→22:00)
[2021-02-20] MEDS: CEPHALEXIN 500 MG CAP PO SCH ×2 (08:40→21:59)
[2021-02-20] MEDS: ISOSORBIDE MONONITRATE ER 30 MG TAB.ER.24H PO SCH (08:40)
[2021-02-20] MEDS: GABAPENTIN 100 MG CAP PO SCH ×3 (08:40→21:59)
[2021-02-20] MEDS ORDERED: ATORVASTATIN 80 MG TAB PO STA (09:21)
[2021-02-20] MEDS ORDERED: ALPRAZolam 0.5 MG TAB PO PRN (09:21)
[2021-02-20] MEDS ORDERED: NITROGLYCERIN SL TABS 0.4 MG TAB SUBLINGUAL PRN ×2 (09:21→11:41)
[2021-02-20] MEDS ORDERED: ASPIRIN 325 MG TAB PO STA (09:21)
[2021-02-20] MEDS ORDERED: SODIUM CHLORIDE 0.9% 1,000 ML in EMPTY BAG 1 BAG IV ONE (09:21)
[2021-02-20] MEDS ORDERED: ALPRAZolam 0.25 MG TAB PO PRN (09:21)
[2021-02-20] MEDS: lisinopriL 20 MG TAB PO SCH (09:43)
[2021-02-20] MEDS: METOPROLOL TARTRATE 25 MG TAB PO SCH ×3 (09:43→21:59)
[2021-02-20] MEDS: amLODIPine 5 MG TAB PO SCH ×2 (09:43→22:00)
[2021-02-20] MEDS: ASPIRIN 81 MG PO SCH (09:44)
[2021-02-20] MEDS ORDERED: LIDOCAINE 1% INJ 10MG/ML (20 ML MDV) ONE (10:15)
[2021-02-20] MEDS ORDERED: fentaNYL (PF) 50 MCG/ML 2 ML AMP ONE (10:15)
[2021-02-20] MEDS ORDERED: HEPARIN SODIUM 1,000 UN/ML (10ML VL) ONE (10:15)
[2021-02-20] MEDS ORDERED: VERAPAMIL 2.5 MG/ML 2 ML AMP ONE (10:15)
[2021-02-20] MEDS ORDERED: IV FLUID CONTINUATION 900 ML IV ONE (10:22)
[2021-02-20] MEDS ORDERED: fentaNYL (PF) 50 MCG/ML 2 ML AMP IV ONE (10:25)
[2021-02-20] MEDS ORDERED: MIDAZOLAM 2 MG/2 ML VIAL IV ONE (10:25)
[2021-02-20] MEDS ORDERED: LIDOCAINE 1% INJ 10MG/ML (20 ML MDV) SQ ONE (10:27)
[2021-02-20] MEDS ORDERED: VERAPAMIL SYRINGE (5 MG/10 ML) INTRAARTER ONE (10:29)
--- NOTE | 2021-02-20 10:39 | P.PN ---
Subjective Progress Note Date: 02/20/21 Hospital course: Patient is an 85-year-old male with a past medical history of CAD with stenting to RCA [place] [address] Dominguez, hypertension, hyperlipidemia, type II [id number] diabetes mellitus, Parkinson's disease, and mild dementia. Patient presented to the emergency department accompanied by his son for chief complaint of chest pain which slightly improved after sublingual nitroglycerin. He was seen and fully evaluated in the emergency department. EKG was completed showing normal sinus rhythm at 69 bpm. Chest x-ray negative for acute cardiop ulmonary process. Troponin < 0.012. CBC revealing mild leukocytosis with WBC count of 11.1 and consistent with chronic anemia with hemoglobin of 10.5 with baseline hemoglobin of 11.9. BMP showing no significant abnormalities. Liver profile revealing an elevated AST of 104 and alkaline phosphatase of 988. Patient admitted under our services with consultation to cardiology for continued close medical management. Pt follows outpatient with Dr. Barros. Echocardiogram completed revealing a preserved EF of 50-55% with no stenosis or significant valvular abnormalities present. Lexiscan stress test revealed resting EF of 31% with small area of stress-induced reversible ischemia. Patient's chest pain at that time completely subsided and after discussion with cardiology he was monitored overnight but again developed chest discomfort this morning resulting in repeat EKG, reinitiation of heparin infusion, and administration of nitroglycerin which slightly improving pain resulting in ca rdiology taking patient to [facility]. Physical exam: General: non toxic, no distress, appears at stated age. Thin build. Derm: warm, dry Head: atraumatic, normocephalic, symmetric Eyes: no lid lag, anicteric sclera Mouth: no lip lesion, mucus membranes dry Cardiovascular: S1-S2 normal with regular rate and rhythm. No murmurs, gallops, or rubs noted. Posterior tibial pulses palpated bilaterally. Cap refill less than 2 seconds. Lungs: Respirations even, regular, and unlabored on room air. Lungs clear to auscultation bilaterally with no wheezes, rhonchi, or rales noted. No accessory muscle usage. Abdominal: soft, nontender to palpation, no guarding, no appreciable organomegaly Ext: no gross muscle atrophy, no edema, no contractures Neuro: GCS 15. Speech clear. Resting tremors noted. Psych: Alert, oriented, appropriate affect Assessment and Plan of Care: Chest pain, possibly secondary to unstable angina -EKG was completed showing normal sinus rhythm at 69 bpm. Chest x-ray negative for acute cardiopulmonary process. Troponin < 0.012. -Echocardiogram completed revealing a preserved EF of 50-55% with no stenosis or significant valvular abnormalities present. -Lexiscan stress test revealed resting EF of 31% with small area of stress- induced reversible ischemia. 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 -Hgb A1c 6.4% Elevated liver enzymes, improving -AST 104 and alkaline phosphatase 988 upon admission. Repeat morning labs reveal AST of 47 and alkaline phosphatase of 966. -Abdominal ultrasound normal findings showing no evidence of gallstones or dilated ducts with no focal liver deficits. -Continued close monitoring with repeat a.m. labs. History of coronary artery disease with previous stenting to RCA -Echocardiogram completed 12/23/19 revealing a normal EF of 55-60% with no significant valvular abnormalities -Cardiac cath 05/16/18 resulted in stenting to RCA -Continue daily medication management with aspirin, atorvastatin, metoprolol, amlodipine, and lisinopril. Hypertension -Monitor vital signs and continue daily medication management with amlodipine, lisinopril and metoprolol. Hyperlipidemia -Continue daily medication management with atorvastatin. -Lipid profile with a.m. labs. Type II [id number] diabetes mellitus -Glycemic protocol with NovoLog sliding scale. Parkinson's disease -Safe and supportive care. -Fall precautions CODE STATUS: Full code DVT prophylaxis: Heparin Discussed with: Patient and his son at bedside Anticipated discharge date: Clinical course to determine Anticipated discharge place: Home A total of 45 minutes was spent on the care of this complex patient more than 50% of the time was spent in counseling and care coordination. Objective - Vital Signs Vital signs: Vital Signs Temp 97.6 F 02/20/21 08:29 Pulse 63 02/20/21 08:29 Resp 18 02/20/21 08:29 BP 155/63 02/20/21 08:29 Pulse Ox 97 02/20/21 08:29 Intake & Output 06/02/20/21 02/20/21 18:59 06:59 18:59 Intake Total 0 Output Total 150 Balance 0 -150 Weight 64.41 kg Intake: Oral 0 Output: Urine 150 Other: Voiding Method Toilet Toilet Toilet Urinal Urinal Urinal # Voids 1 4 # Bowel Movements 1 - Labs CBC & Chem 7: 02/19/21 05:40 02/19/21 05:40 Labs: Abnormal Lab Results - Last 24 Hours (Table) 02/19/21 02/19/21 02/19/21 Range/Units 05:40 11:47 17:11 POC Glucose (mg/dL) 136 H 133 H (75-99) mg/dL Hemoglobin A1c 6.4 H (4.0-6.0) % 02/19/21 02/20/21 Range/Units 20:28 07:37 POC Glucose (mg/dL) 157 H 115 H (75-99) mg/dL Hemoglobin A1c (4.0-6.0) %
[2021-02-20] MEDS ORDERED: IOPAMIDOL-370 125ML BTL INJ ONE (11:27)
[2021-02-20] MEDS ORDERED: CLOPIDOGREL 75 MG TAB ONE (11:28)
[2021-02-20] MEDS ORDERED: CLOPIDOGREL 75 MG TAB PO ONE (11:29)
[2021-02-20] MEDS ORDERED: IOPAMIDOL-370 100ML BTL INJ ONE (11:37)
[2021-02-20] MEDS ORDERED: ZOLPIDEM 5 MG TAB PO PRN (11:41)
[2021-02-20] MEDS ORDERED: MAG HYDROX/AL HYDROX/SIMETH 30 ML CUP PO PRN (11:41)
[2021-02-20] MEDS ORDERED: RX INFO: IV CONTRAST WAS GIVEN 1 EACH MISC MISCELLANE PRN (11:41)
[2021-02-20] MEDS ORDERED: ATROPINE SULFATE 0.1 MG/ML 10ML SYRINGE IV PRN (11:41)
[2021-02-20] MEDS ORDERED: SODIUM CHLORIDE 0.9% 1,000 ML IV SCH (11:45)
[2021-02-20 12:02] LABS: Glucose,Whole Blood 104 mg/dL (75-99)
--- NOTE | 2021-02-20 12:57 | PTCA ---
PERCUTANEOUSTRANS CORORONARY ANGIOGRAPHY DATE OF SERVICE: 02/20/2021 PERFORMING PHYSICIAN: Vignesh Dominguez MD. PROCEDURE PERFORMED: Successful stenting of the PLV branch of the RCA using 2.5 x 18 and 3.0 x 15 mm Xience APOLLO with an excellent angiographic results and reduction of stenosis from 70% to 0%. INDICATION: This is an 85-year-old gentleman with coronary artery disease and prior stenting of the left circumflex, who was admitted to the hospital with chest discomfort and ruled out for acute coronary event. He underwent myocardial perfusion imaging stress test and that came in to be abnormal showing reversibility in the apex. Because of that, a heart catheterization was advised. He underwent heart catheterization by Dr. Barros and was found to have severe disease involving the PLV branch of the right coronary artery. APPROACH: Right radial artery. COMPLICATION: None. LEVEL OF SEDATION: Moderate with sedation length of 20 minutes. PROCEDURE DESCRIPTION: Please refer to diagnostic heart catheterization that was performed by Dr. Barros. Anticoagulation was continues with using heparin with continuous ACT monitoring throughout the procedure. Subsequently, I did engage the RCA using guide. I did wire the RCA using a run- through wire. After that I did PTCA ballooning using 2.5 x 12 mm balloon before I deployed in the PLV 2 stents. The first stent was Xience 2.5 x 18 and the second one was Xience 3.0 x 15 mm. Both stents were positioned under fluoroscopy guidance and deployed under fluoroscopy guidance and under 18 atmospheres for 20 seconds. The following angiogram showed excellent angiographic results and the procedure was completed without any complication. POSTPROCEDURE MANAGEMENT: 1. Dual anti-platelet therapy. 2. Aggressive cholesterol control. 3. Risk factor modifications. 4. Follow up with the patient. MMODL / IJN: [id number] /
[2021-02-20 13:29] VITALS: BMI 21.6
[2021-02-20] MEDS: LINAGLIPTIN 5 MG TABLET PO SCH (15:30)
--- NOTE | 2021-02-20 16:22 | P.CARDCATH ---
Date of Procedure: 02/20/21 Preoperative Diagnosis: Unstable angina Postoperative Diagnosis: Multivessel disease Procedure(s) Performed: Left heart catheterization without left ventriculography Description of Procedure: HISTORY: This is a 85-year-old gentleman with history of ischemic heart disease with stent placement of the circumflex and also right [place] artery was admitted to the hospital with chest pain. He had a nuclear stress test which showed some apical ischemia. Patient had more chest pain this morning relieved with nitroglycerin. Advised to have a cardiac cath for definitive diagnosis and further treatment as needed CONSENT:I have discussed the risks, benefits and alternative therapies for the above-mentioned procedure and for both sedation/analgesia as well as necessary blood product administration, if indicated, as they pertain to this patient. The patient has indicated understanding and acceptance of the risks and procedures discussed. PROCEDURE: Patient was brought to the lab in a fasting state. Patient was given some IV sedation. The right groin is infiltrated with lidocaine and right radial l artery was entered using Seldinger technique. A 6-Czech catheter was left in place and selective coronary arteriography was performed. Patient tolerated the procedure well. Patient went on to have stent placement of the RCA by Dr. Barnard. No immediate complications were noted . Conscious Sedation: Versed 1mg Fentanyl 25 g Duration 22minutes HEMODYNAMICS: Aortic pressure is about 110/70 SELECTIVE CORONARY ARTERIOGRAPHY: LEFT MAIN: Normal length THE LEFT ANTERIOR DESCENDING CORONARY ARTERY: . This is a moderate caliber vessel with a diffuse plaque with areas of 30-40% stenosis. There is a moderate diagonal branch which has diffuse disease with a 30-40% ostial stenosis. There is a 70% eccentric lesion in the midportion and a 60-70% in the distal portion of this diagonal branch THE LEFT CIRCUMFLEX AND IS CORONARY ARTERY: Fair caliber vessel with patent stent in the midportion, mild diffuse disease THE RIGHT CORONARY ARTERY: . He caliber vessel with patent stent in the distal portion with a diffuse disease. There are areas of about 70% stenosis in the PLV branch in 2 locations LEFT VENTRICULOGRAPHY: Not performed FINAL IMPRESSION: . Multivessel disease with patent stents in the distal RCA and also mid circumflex. Critical lesions in the diagonal branch that is a small-caliber vessel with ostial involvement. There is also moderate to severe disease in the PLV branch PLAN: Discussed with Dr. Barnard. Because of small nature and diffuse disease of the diagonal, not felt to be ideal vessel for intervention. Moreover compared to the previous studies, It seems to be stable. Recommended stent placement of the distal RCA which is being for performed by him PROGNOSIS: Fair
[2021-02-20 17:25] LABS: Glucose,Whole Blood 134 mg/dL (75-99)
[2021-02-20 20:48] LABS: Glucose,Whole Blood 173 mg/dL (75-99)
[2021-02-20] MEDS: ATORVASTATIN 80 MG TAB PO SCH (21:59)
[2021-02-20] MEDS: polyethylene glycoL 3350 17 GM POWD.PACK PO SCH (22:00)
[2021-02-21 04:56] LABS: ALT 18 U/L (4-49); AST 85 U/L (17-59); African American GFR (CKD) >90 (>60 ml/min/1.73 sqM); Albumin 3.3 g/dL (3.5-5.0); Albumin/Globulin Ratio 1.2; Alkaline Phosphatase 1189 U/L (38-126); Anion Gap 6 mmol/L; Blood Urea Nitrogen 24 mg/dL (9-20); Calcium 8.4 mg/dL (8.4-10.2); Carbon Dioxide 22 mmol/L (22-30); Chloride 109 mmol/L (98-107); Globulin 2.8 g/dL; Glucose 111 mg/dL (74-99); Non-African American GFR(CKD) 80 (>60 ml/min/1.73 sqM); Potassium 3.9 mmol/L (3.5-5.1); Sodium 137 mmol/L (137-145); Total Bilirubin 0.9 mg/dL (0.2-1.3); Total Protein 6.1 g/dL (6.3-8.2)
[2021-02-21] MEDS: METOPROLOL TARTRATE 25 MG TAB PO SCH ×3 (07:32→22:16)
[2021-02-21] MEDS: ASPIRIN 81 MG PO SCH (07:32)
[2021-02-21] MEDS: CLOPIDOGREL 75 MG TAB PO SCH (07:32)
[2021-02-21] MEDS: CEPHALEXIN 500 MG CAP PO SCH ×2 (07:32→22:16)
[2021-02-21] MEDS: amLODIPine 5 MG TAB PO SCH ×2 (07:32→22:17)
[2021-02-21] MEDS: lisinopriL 20 MG TAB PO SCH (07:32)
[2021-02-21] MEDS: ISOSORBIDE MONONITRATE ER 30 MG TAB.ER.24H PO SCH (07:32)
[2021-02-21] MEDS: GABAPENTIN 100 MG CAP PO SCH ×3 (07:33→22:17)
[2021-02-21 07:58] LABS: Glucose,Whole Blood 132 mg/dL (75-99)
[2021-02-21] MEDS: INSULIN ASPART (NovoLOG) 100 UNIT/ML VIAL SQ SCH ×4 (08:43→22:18)
[2021-02-21] MEDS: LINAGLIPTIN 5 MG TABLET PO SCH (08:44)
[2021-02-21 09:11] LABS: HCT 28.7 % (39.6-50.0); HGB 9.5 g/dL (13.0-17.0); MCH 29.2 pg (27.0-32.0); MCHC 33.1 g/dL (32.0-37.0); MCV 88.3 fL (80.0-97.0); Mean Platelet Volume 11.7 fL (9.5-12.2); Platelet Count 152 X 10*3/uL (140-440); RBC 3.25 X 10*6/uL (4.40-5.60); RDW 13.1 % (11.5-14.5); WBC 10.51 X 10*3/uL (4.50-10.00)
--- NOTE | 2021-02-21 10:38 | P.PN ---
Subjective Progress Note Date: 02/21/21 Hospital course: Patient is an 85-year-old male with a past medical history of CAD with stenting to RCA in [address] Dominguez, hypertension, hyperlipidemia, type II [id number]-[id number] diabetes mellitus, Parkinson's disease, and mild dementia. Patient presented to the emergency department on 02/18/21 accompanied by his son for chief complaint of chest pain which slightly improved after sublingual nitroglycerin. He was seen and fully evaluated in the emergency department. EKG was completed showing normal sinus rhythm at 69 bpm. Chest x-ray negative for acute cardiopulmonary process. Troponin < 0.012. CBC revealing mild leukocytosis with WBC count of 11.1 and consistent with chronic anemia with hemoglobin of 10.5 with baseline hemoglobin of 11.9. BMP showing no significant abnormalities. Liver profile revealing an elevated AST of 104 and alkaline phosphatase of 988. Pt reported he follows outpatient with bulk station agent, Dr. Barros. Patient was admitted under our services for further evaluation and monitoring of his chest pain with consultation to cardiology. An Echocardiogram was completed revealing a preserved EF of 50-55% with no stenosis or significant valvular abnormalities present. Lipid profile completed revealing no significan t abnormalities with the exception of a slightly low HDL of 32. Hemoglobin A1c 6.4%. On the morning of 02/19/21, a Lexiscan stress test revealed resting EF of 31% with small area of stress-induced reversible ischemia. Patient's chest pain at that time was reported to be completely subsided and he was again monitored overnight. On the morning of 02/20/21 patient again developed chest pain/discomf ort and was taken to cardiac metallurgy laboratory technician by interventional cardiology team resulting in reports of successful stenting of the PLV branch of the RCA and Plavix was added to daily cardiac medication regimen already consisting of aspirin, atorvastatin, Imdur, lisinopril, and metoprolol.. Physical exam: Patient seen and fully evaluated at the bedside this morning. Patient reports chest pain has completely subsided status post cardiac catheterization. Patient states however this morning he is feeling some tingling in his left arm like he did prior to coming in. Order placed for repeat EKG. Discussed with rounding cardiology team at bedside and they are recommending continued overnight cardiac monitoring with possible discharge tomorrow morning. Patient denies having any other complaints at this time including headache, lightheadedness, dizziness, chest pain, palpitations, shortness of breath, abdominal pain, nausea, vomiting, or enhancing any focal weakness or numbness in extremities. Cardiac catheterization site to right radial artery with dressing in place that is clean dry and intact with no signs of bleeding or hematoma noted at this time. General: non toxic, no distress, appears at stated age. Thin build. Derm: warm, dry. Cardiac catheterization site to right radial artery with dressing in place that is clean dry and intact with no signs of bleeding or hematoma noted at this time. Head: atraumatic, normocephalic, symmetric Eyes: no lid lag, anicteric sclera Mouth: no lip lesion, mucus membranes dry Cardiovascular: S1-S2 normal with regular rate and rhythm. No murmurs, gallops, or rubs noted. Posterior tibial pulses palpated bilaterally. Cap refill less than 2 seconds. Lungs: Respirations even, regular, and unlabored on room air. Lungs clear to auscultation bilaterally with no wheezes, rhonchi, or rales noted. No accessory muscle usage. Abdominal: soft, nontender to palpation, no guarding, no appreciable organomegaly Ext: no gross muscle atrophy, no edema, no contractures Neuro: GCS 15. Speech clear. Resting tremors noted. Psych: Alert, oriented, appropriate affect Assessment and Plan of Care: Chest pain, secondary coronary artery disease with unstable angina -EKG was completed showing normal sinus rhythm at 69 bpm. Chest x-ray negative for acute cardiopulmonary process. Troponin < 0.012. -Echocardiogram completed revealing a preserved EF of 50-55% with no stenosis or significant valvular abnormalities present. -Lexiscan stress test revealed resting EF of 31% with small area of stress-i nduced reversible ischemia. -Cardiac cath completed on 02/20/21 with reports of successful stenting of the PLV branch of the RCA. -Cardiology following, recommending continued overnight cardiac monitoring. -Plavix was added to daily cardiac medication regimen already consisting of aspirin, atorvastatin, amlodipine, Imdur, lisinopril, and metoprolol.. Elevated liver enzymes -AST 85 and alkaline phosphatase 1189. -Patient asymptomatic with no complaints of abdominal pain or discomfort. No nausea no vomiting. Abdominal ultrasound normal findings showing no evidence of gallstones or dilated ducts with no focal liver deficits. -At this time we will continue atorvastatin secondary to patient's CAD, recent placement of stent and need for continued medical management. . -Continued close monitoring with repeat a.m. labs. Hypertension -Monitor vital signs and continue daily medication management with amlodipine, lisinopril and metoprolol. Hyperlipidemia -Continue daily medication management with atorvastatin. -Lipid profile with a.m. labs. Type II [id number] diabetes mellitus -Glycemic protocol with NovoLog sliding scale. Parkinson's disease -Safe and supportive care. -Continuation of carbidopa/levodopa -Fall precautions CODE STATUS: Full code DVT prophylaxis: Heparin Discussed with: Patient and RN Anticipated discharge date: Tomorrow morning Anticipated discharge place: Home A total of 45 minutes was spent on the care of this complex patient more than 50% of the time was spent in counseling and care coordination. Objective - Vital Signs Vital signs: Vital Signs Temp 98.2 F 02/21/21 02:00 Pulse 55 L 02/21/21 02:00 Resp 16 02/21/21 02:00 BP 163/67 02/21/21 02:00 Pulse Ox 97 02/21/21 07:15 Intake & Output 02/20/21 02/21/21 02/21/21 18:59 06:59 18:59 Intake Total 100 Output Total 250 Balance -150 Weight 64.41 kg Intake: IV 100 Output: Urine 250 Other: Voiding Method Urinal Urinal # Voids 7 - Labs CBC & Chem 7: 02/21/21 04:13 02/21/21 04:13 Labs: Abnormal Lab Results - Last 24 Hours (Table) 02/20/21 02/20/21 02/20/21 Range/Units 12:01 17:24 20:47 WBC (4.50-10.00) X 10*3/uL RBC (4.40-5.60) X 10*6/uL Hgb (13.0-17.0) g/dL Hct (39.6-50.0) % Chloride (98-107) mmol/L BUN (9-20) mg/dL Glucose (74-99) mg/dL POC Glucose (mg/dL) 104 H 134 H 173 H (75-99) mg/dL AST (17-59) U/L Alkaline Phosphatase (38-126) U/L Total Protein (6.3-8.2) g/dL Albumin (3.5-5.0) g/dL 02/21/21 02/21/21 02/21/21 Range/Units 04:13 04:13 07:57 WBC 10.51 H (4.50-10.00) X 10*3/uL RBC 3.25 L (4.40-5.60) X 10*6/uL Hgb 9.5 L (13.0-17.0) g/dL Hct 28.7 L (39.6-50.0) % Chloride 109 H (98-107) mmol/L BUN 24 H (9-20) mg/dL Glucose 111 H (74-99) mg/dL POC Glucose (mg/dL) 132 H (75-99) mg/dL AST 85 H (17-59) U/L Alkaline Phosphatase 1189 H (38-126) U/L Total Protein 6.1 L (6.3-8.2) g/dL Albumin 3.3 L (3.5-5.0) g/dL
[2021-02-21] MEDS: CARBIDOPA-LEVODOPA ER 25-100MG 1 EACH TABLET.ER PO SCH ×2 (10:45→22:17)
[2021-02-21 12:17] LABS: Glucose,Whole Blood 162 mg/dL (75-99)
--- NOTE | 2021-02-21 13:07 | P.PN ---
Subjective Progress Note Date: 02/21/21 HISTORY OF PRESENT ILLNESS: This is a 85-year-old male with a past medical history significant for coronary artery disease with previous stenting, hypertension, hyperlipidemia, diabetes mellitus, mild dementia, and Parkinson's disease. Patient follows in the office with Dr. Barros. We have been asked to see the patient in consultation for chest pain. Patient examined at the bedside. Patient states Monday he woke up in his usual state of health. He states shortly after awakening he started having left arm numbness and tingling. He states it eventually went a way on its own. He states later that evening he went to bed and woke up around 2 AM with a heavy pressure in his chest. He denies any arm tingling or numbness at that time. He reports feeling short of breath. He denies nausea or vomiting. Denied feeling sweaty. He states once the pressure got to a 5/10 he took sublingual nitro 2 doses and within an hour his pain went away and he went back to sleep. In the morning he told his son about his pain and he came to the emergency room for further evaluation. Patient states he has been compliant with his medications. However he does report he was taken off aspirin approximately one week ago secondary to a nose bleed. EKG reveals sinus mechanism with no signs of acute ischemia Chest xray negative for acute process Laboratory data: WBC 9.4. Hemoglobin 10.2. Platelet count 167. Sodium 139. Potassium 4.1. BUN 23. Creatinine 1.0. Magnesium 1.8. Troponin negative 3. Current home cardiac medications include aspirin 81 mg daily, Lipitor 80 mg daily, metoprolol tartrate 25 mg 3 times a day, and amlodipine/Benzapril 5-10mg Most recent echocardiogram obtained in December 2019 reveals ejection fraction 55- 60%, trace mitral regurgitation, trace tricuspid regurgitation Cardiac catheterization history: April 2018 with stent placement to the circumflex and RCA 02/21/2021 Patient underwent Lexiscan stress test on 02/19/2021 revealing a small area of stress-induced reversible ischemia. Patient underwent cardiac catheterization yesterday with Dr. Barros. Patient was found to have multivessel disease with patent stents in the distal RCA and mid circumflex. Critical lesions and the diagonal branch that is a small caliber vessel with ostial involvement. There is also moderate to severe disease in the PLV branch. Patient underwent stenting to the PLV branch of the RCA with Dr. Dominguez. Patient examined this morning at the bedside. Patient denies chest pain or pressure. He denies shortness of breath. He denies any numbness or tingling in his extremities. Patient continues to have some oozing from his right radial cath site. Echocardiogram completed revealed ejection fraction 50-55%, basal lateral and inferior LV wall hypokinesis, mild mitral regurgitation, and mild tricuspid regurgitation PHYSICAL EXAM: VITAL SIGNS: Reviewed. GENERAL: Well-developed in no acute distress. HEENT: Head is normocephalic. Pupils are equal, round. Sclerae anicteric. Mucous membranes of the mouth are moist. Neck supple. No JVD or thyromegaly LUNGS: Respirations even and unlabored. Lungs essentially clear to auscultation bilaterally. HEART: Regular rate and rhythm. S1 and S2 heard. ABDOMEN: Soft. Nondistended. Nontender. EXTREMITIES: Normal range of motion. No clubbing or cyanosis. Peripheral pulses intact. No lower extremity edema NEUROLOGIC: Awake and alert. Oriented x 3. ASSESSMENT: Chest pain, status post PCI of the PLV branch of RCA Coronary artery disease with previous stent placement to the circumflex and RCA, 2018 Hypertension Hyperlipidemia Diabetes mellitus Parkinson's disease Mild dementia PLAN: Continue current cardiac medications Place pressure dressing to right radial cath site Continue to monitor patient for another 24 hours If he remains stable, anticipate discharge home tomorrow Nurse practitioner note has been reviewed by physician. Signing provider agrees with the documented findings, assessment, and plan of care. Objective - Vital Signs Vital signs: Vital Signs Temp 98.4 F 02/21/21 07:00 Pulse 55 L 02/21/21 08:00 Resp 16 02/21/21 08:00 BP 163/70 02/21/21 07:00 Pulse Ox 97 02/21/21 07:15 Intake & Output 02/20/21 02/21/21 02/21/21 18:59 06:59 18:59 Intake Total 100 Output Total 250 500 Balance -150 -500 Weight 64.41 kg Intake: IV 100 Output: Urine 250 500 Other: Voiding Method Urinal Urinal Urinal # Voids 7 2 # Bowel Movements 1 - Labs CBC & Chem 7: 02/21/21 04:13 02/21/21 04:13 Labs: Abnormal Lab Results - Last 24 Hours (Table) 02/20/21 02/20/21 02/21/21 Range/Units 17:24 20:47 04:13 WBC (4.50-10.00) X 10*3/uL RBC (4.40-5.60) X 10*6/uL Hgb (13.0-17.0) g/dL Hct (39.6-50.0) % Chloride 109 H (98-107) mmol/L BUN 24 H (9-20) mg/dL Glucose 111 H (74-99) mg/dL POC Glucose (mg/dL) 134 H 173 H (75-99) mg/dL AST 85 H (17-59) U/L Alkaline Phosphatase 1189 H (38-126) U/L Total Protein 6.1 L (6.3-8.2) g/dL Albumin 3.3 L (3.5-5.0) g/dL 02/21/21 02/21/21 02/21/21 Range/Units 04:13 07:57 12:16 WBC 10.51 H (4.50-10.00) X 10*3/uL RBC 3.25 L (4.40-5.60) X 10*6/uL Hgb 9.5 L (13.0-17.0) g/dL Hct 28.7 L (39.6-50.0) % Chloride (98-107) mmol/L BUN (9-20) mg/dL Glucose (74-99) mg/dL POC Glucose (mg/dL) 132 H 162 H (75-99) mg/dL AST (17-59) U/L Alkaline Phosphatase (38-126) U/L Total Protein (6.3-8.2) g/dL Albumin (3.5-5.0) g/dL
[2021-02-21 17:39] LABS: Glucose,Whole Blood 151 mg/dL (75-99)
[2021-02-21 20:57] LABS: Glucose,Whole Blood 192 mg/dL (75-99)
[2021-02-21] MEDS: ATORVASTATIN 80 MG TAB PO SCH (22:17)
[2021-02-21] MEDS: polyethylene glycoL 3350 17 GM POWD.PACK PO SCH (22:18)
[2021-02-22 07:13] LABS: Glucose,Whole Blood 145 mg/dL (75-99)
[2021-02-22 07:46] VITALS: BP 150/64; RESP 18; TEMP 97.8
[2021-02-22] MEDS: GABAPENTIN 100 MG CAP PO SCH (08:01)
[2021-02-22] MEDS: amLODIPine 5 MG TAB PO SCH (08:01)
[2021-02-22] MEDS: ISOSORBIDE MONONITRATE ER 30 MG TAB.ER.24H PO SCH (08:02)
[2021-02-22] MEDS: ASPIRIN 81 MG PO SCH (08:02)
[2021-02-22] MEDS: CARBIDOPA-LEVODOPA ER 25-100MG 1 EACH TABLET.ER PO SCH (08:03)
[2021-02-22] MEDS: METOPROLOL TARTRATE 25 MG TAB PO SCH (08:03)
[2021-02-22] MEDS: LINAGLIPTIN 5 MG TABLET PO SCH (08:03)
[2021-02-22] MEDS: CLOPIDOGREL 75 MG TAB PO SCH (08:03)
[2021-02-22] MEDS: CEPHALEXIN 500 MG CAP PO SCH (08:03)
[2021-02-22] MEDS: INSULIN ASPART (NovoLOG) 100 UNIT/ML VIAL SQ SCH ×2 (08:03→12:42)
[2021-02-22] MEDS: lisinopriL 20 MG TAB PO SCH (08:03)
[2021-02-22 09:28] LABS: HCT 27.5 % (39.6-50.0); HGB 9.2 g/dL (13.0-17.0); MCH 29.5 pg (27.0-32.0); MCHC 33.5 g/dL (32.0-37.0); MCV 88.1 fL (80.0-97.0); Mean Platelet Volume 11.5 fL (9.5-12.2); Platelet Count 164 X 10*3/uL (140-440); RBC 3.12 X 10*6/uL (4.40-5.60); WBC 11.77 X 10*3/uL (4.50-10.00)
[2021-02-22 10:55] LABS: African American GFR (CKD) 90.6 (60.0-200.0); Albumin 3.5 g/dL (3.80-4.90); Albumin/Globulin Ratio 1.59 (1.60-3.17); Anion Gap 8.2 mmol/L (4.00-12.00); BUN/Creat Ratio 28.89 Ratio (12.00-20.00); Calcium 8.3 mg/dL (8.7-10.3); Carbon Dioxide 22.8 mmol/L (21.6-31.8); Globulin 2.2 g/dL (1.6-3.3); Non-African American GFR(CKD) 78.2 (60.0-200.0); Potassium 3.9 mmol/L (3.5-5.5); Total Bilirubin 0.5 mg/dL (0.2-1.2); Total Protein 5.7 g/dL (6.2-8.2)
--- NOTE | 2021-02-22 11:12 | P.PN ---
Subjective Progress Note Date: 02/22/21 HISTORY OF PRESENT ILLNESS: This is a 85-year-old male with a past medical history significant for coronary artery disease with previous stenting, hypertension, hyperlipidemia, diabetes mellitus, mild dementia, and Parkinson's disease. Patient follows in the office with Dr. Barros. We have been asked to see the patient in consultation for chest pain. Patient examined at the bedside. Patient states Monday he woke up in his usual state of health. He states shortly after awakening he started having left arm numbness and tingling. He states it eventually went a way on its own. He states later that evening he went to bed and woke up around 2 AM with a heavy pressure in his chest. He denies any arm tingling or numbness at that time. He reports feeling short of breath. He denies nausea or vomiting. Denied feeling sweaty. He states once the pressure got to a 5/10 he took sublingual nitro 2 doses and within an hour his pain went away and he went back to sleep. In the morning he told his son about his pain and he came to the emergency room for further evaluation. Patient states he has been compliant with his medications. However he does report he was taken off aspirin approximately one week ago secondary to a nose bleed. EKG reveals sinus mechanism with no signs of acute ischemia Chest xray negative for acute process Laboratory data: WBC 9.4. Hemoglobin 10.2. Platelet count 167. Sodium 139. Potassium 4.1. BUN 23. Creatinine 1.0. Magnesium 1.8. Troponin negative 3. Current home cardiac medications include aspirin 81 mg daily, Lipitor 80 mg daily, metoprolol tartrate 25 mg 3 times a day, and amlodipine/Benzapril 5-10mg Most recent echocardiogram obtained in December 2019 reveals ejection fraction 55- 60%, trace mitral regurgitation, trace tricuspid regurgitation Cardiac catheterization history: April 2018 with stent placement to the circumflex and RCA 02/21/2021 Patient underwent Lexiscan stress test on 02/19/2021 revealing a small area of stress-induced reversible ischemia. Patient underwent cardiac catheterization yesterday with Dr. Barros. Patient was found to have multivessel disease with patent stents in the distal RCA and mid circumflex. Critical lesions and the diagonal branch that is a small caliber vessel with ostial involvement. There is also moderate to severe disease in the PLV branch. Patient underwent stenting to the PLV branch of the RCA with Dr. Dominguez. Patient examined this morning at the bedside. Patient denies chest pain or pressure. He denies shortness of breath. He denies any numbness or tingling in his extremities. Patient continues to have some oozing from his right radial cath site. Echocardiogram completed revealed ejection fraction 50-55%, basal lateral and inferior LV wall hypokinesis, mild mitral regurgitation, and mild tricuspid regurgitation 02/22/2021 Patient examined this morning at the bedside. Patient denies chest pain or pressure. He denies shortness of breath. No further oozing from right radial Site. Blood pressure 150/64. PHYSICAL EXAM: VITAL SIGNS: Reviewed. GENERAL: Well-developed in no acute distress. HEENT: Head is normocephalic. Pupils are equal, round. Sclerae anicteric. Mucous membranes of the mouth are moist. Neck supple. No JVD or thyromegaly LUNGS: Respirations even and unlabored. Lungs essentially clear to auscultation bilaterally. HEART: Regular rate and rhythm. S1 and S2 heard. ABDOMEN: Soft. Nondistended. Nontender. EXTREMITIES: Normal range of motion. No clubbing or cyanosis. Peripheral pulses intact. No lower extremity edema NEUROLOGIC: Awake and alert. Oriented x 3. ASSESSMENT: Chest pain, status post PCI of the PLV branch of RCA Coronary artery disease with previous stent placement to the circumflex and RCA, 2017 Hypertension Hyperlipidemia Diabetes mellitus Parkinson's disease Mild dementia PLAN: Continue current cardiac medications Patient may be discharged today from a cardiac standpoint Patient to follow up outpatient with Dr. Barros Nurse practitioner note has been reviewed by physician. Signing provider agrees with the documented findings, assessment, and plan of care. Objective - Vital Signs Vital signs: Vital Signs Temp 97.8 F 02/22/21 07:00 Pulse 70 02/22/21 07:00 Resp 18 02/22/21 07:00 BP 150/64 02/22/21 07:00 Pulse Ox 100 02/22/21 07:00 Intake & Output 02/21/21 02/22/21 02/22/21 18:59 06:59 18:59 Intake Total 300 474 Output Total 500 500 Balance -200 -500 474 Intake: Oral 300 474 Output: Urine 500 500 Other: Voiding Method Urinal Urinal Urinal # Voids 6 1 # Bowel Movements 1 1 - Labs CBC & Chem 7: 02/22/21 04:26 02/22/21 04:26 Labs: Abnormal Lab Results - Last 24 Hours (Table) 02/21/21 02/21/21 02/21/21 Range/Units 12:16 17:38 20:57 WBC (4.50-10.00) X 10*3/uL RBC (4.40-5.60) X 10*6/uL Hgb (13.0-17.0) g/dL Hct (39.6-50.0) % BUN/Creatinine Ratio (12.00-20.00) Ratio Glucose (70-110) mg/dL POC Glucose (mg/dL) 162 H 151 H 192 H (75-99) mg/dL Calcium (8.7-10.3) mg/dL AST (14-35) U/L Alkaline Phosphatase (41-126) U/L Total Protein (6.2-8.2) g/dL Albumin (3.80-4.90) g/dL Albumin/Globulin Ratio (1.60-3.17) g/dL 02/22/21 02/22/21 02/22/21 Range/Units 04:26 04:26 07:11 WBC 11.77 H (4.50-10.00) X 10*3/uL RBC 3.12 L (4.40-5.60) X 10*6/uL Hgb 9.2 L (13.0-17.0) g/dL Hct 27.5 L (39.6-50.0) % BUN/Creatinine Ratio 28.89 H (12.00-20.00) Ratio Glucose 132 H (70-110) mg/dL POC Glucose (mg/dL) 145 H (75-99) mg/dL Calcium 8.3 L (8.7-10.3) mg/dL AST 37 H (14-35) U/L Alkaline Phosphatase 1087 H (41-126) U/L Total Protein 5.7 L (6.2-8.2) g/dL Albumin 3.50 L (3.80-4.90) g/dL Albumin/Globulin Ratio 1.59 L (1.60-3.17) g/dL
[2021-02-22 11:15] VITALS: PULSE 69
[2021-02-22 11:48] LABS: Glucose,Whole Blood 243 mg/dL (75-99)
--- NOTE | 2021-02-22 13:48 | P.DS ---
Providers Date of admission: 02/19/21 16:44 Expected date of discharge: 02/22/21 Attending physician: Veronica Dorantes, DO Consults: 02/18/21 14:10 Consult Physician Urgent Consulting Provider: Karolyn Barros Consult Reason/Comments: Chest pain Do you want consulting provider notified?: Yes 02/20/21 11:41 Consult Physician Routine Consulting Provider: [facility] Consult Reason/Comments: Post Interventional patient Do you want consulting provider notified?: Already Contacted Primary care physician: Master Ochoa MD Hospital Course: Discharge Diagnosis: Chest pain, secondary to unstable angina resulting in stenting of RCA Elevated liver enzymes Hypertension Hyperlipidemia Type II [id number] diabetes mellitus Parkinson's disease Hospital Course: Patient is an 85-year-old male with a past medical history of CAD with stenting to RCA [place] [address] Dominguez, hypertension, hyperlipidemia, type II non-insulin- dependent diabetes mellitus, Parkinson's disease, and mild dementia. Patient presented to the emergency department on 02/18/21 accompanied by his son for chief complaint of chest pain which slightly improved after sublingual nitroglycerin. He was seen and fully evaluated in the emergency department. EKG was completed showing normal sinus rhythm at 69 bpm. Chest x-ray negative for acute cardiopulmonary process. Troponin < 0.012. CBC revealing mild leukocytosis with WBC count of 11.1 and consistent with chronic anemia with hemoglobin of 10.5 with baseline hemoglobin of 11.9. BMP showing no significant abnormalities. Liver profile revealing an elevated AST of 104 and alkaline phosphatase of 988. Pt reported he follows outpatient with cell lead, Dr. Barros. Patient was admitted under our services for further evaluation and monitoring of his chest pain with consultation to cardiology. An Echocardiogram was completed revealing a preserved EF of 50-55% with no stenosis or significant valvular abnormalities present. Lipid profile completed revealing no significant abnormalities with the exception of a slightly low HDL of 32. Hemoglobin A1c 6.4%. On the morning of 02/19/21, a Lexiscan stress test revealed resting EF of 31% with small area of stress-induced reversible ischemia. Patient's chest pain at that time was reported to be completely subsided and he was again monitored overnight. On the morning of 02/20/21 patient again developed chest pain/discomfort and was taken to cardiac medical lab technologist by interventional cardiology team resulting in reports of successful stenting of the PLV branch of the RCA and Plavix was added to daily cardiac medication regimen already consisting of aspirin, atorvastatin, Imdur, amlodipine/benazepril, and metoprolol.. Patients condition stable and he is being discharged [facility] for rehabilitation at this time. Patient with persistent elevation of alkaline phosphatase throughout hospitalization stay, obstruction and medications ruled out. Patient instructed to follow-up with PCP after discharge from half-way facility to further evaluate elevated alkaline phosphatase levels and rule out any underlying bone disorders. Physical examination: Patient seen and examined at bedside. he denies having any chest pain, tightness, palpitations, shortness of breath, left arm numbness or tingling, or any other complaints at this time. Cardiac catheterization site to right radial artery with dressing in place that is clean dry and intact with no signs of bl eeding or hematoma noted at this time. Vital signs reviewed and stable. General: Nontoxic, no distress and appears stated age. thin build. Derm: Skin warm and dry, normal coloration for ethnicity. Cardiac catheterization site to right radial artery with dressing in place that is clean dry and intact with no signs of bleeding or hematoma noted at this time. Head: Atraumatic, normocephalic and symmetric. Eyes: EOMs intact, no lid lag, and anicteric sclera Mouth: no lip lesions, mucus membranes moist Cardiovascular: regular rate and rhythm with normal S1S2, no murmur, positive posterior tibial pulses bilaterally, and cap refill < 2 seconds. Lungs: Respirations even, regular, and unlabored on room air. Lungs CTA bilaterally, no rhonchi, no rales, no wheezing, and no accessory muscle usage. Abdominal: soft, nontender to palpation, no guarding, no appreciable organomegaly Ext: ROM intact. No gross muscle atrophy, no edema, no contractures Neuro: Speech clear, face symmetrical and CN II-XII grossly intact with no noted focal neuro deficits. Resting tremors present. Psych: Alert and oriented to person, place, time, and situation. Appropriate and pleasant affect. A total of 45 minutes of time was spent preparing this complex discharge summary. Patient Condition at Discharge: Fair Plan - Discharge Summary Discharge Rx Participant: No New Discharge Prescriptions: New Clopidogrel Bisulfate [Plavix] 75 mg PO DAILY #90 tab Isosorbide Mononitrate ER [Imdur] 30 mg PO DAILY 30 Days #30 tab.er.24h Continue Gabapentin [Neurontin] 100 mg PO TID Aspirin 81 mg PO DAILY chew Atorvastatin [Lipitor] 80 mg PO HS 30 Days #30 tab Nitroglycerin Sl Tabs [Nitrostat] 0.4 mg SUBLINGUAL Q5M PRN PRN Reason: Chest Pain amLODIPine BESYLATE/BENAZEPRIL [amLODIPine BESYLATE/BENAZEPRIL 5-10 MG] 1 cap PO BID Metoprolol Tartrate [Lopressor] 25 mg PO TID sitaGLIPtin PHOS/metFORMIN HCL [Janumet 50-500 mg Tablet] 1 tab PO DAILY Carbidopa-Levodopa ER 25-100Mg [Sinemet CR 25-100 mg] 1 tab PO BID Discontinued Cephalexin [Keflex] 500 mg PO Q12HR Discharge Medication List Gabapentin [Neurontin] 100 mg PO TID 04/12/18 [History] Aspirin 81 mg PO DAILY chew 04/13/18 [Rx] Atorvastatin [Lipitor] 80 mg PO HS 30 Days #30 tab 04/13/18 [Rx] Metoprolol Tartrate [Lopressor] 25 mg PO TID 06/06/20 [History] Nitroglycerin Sl Tabs [Nitrostat] 0.4 mg SUBLINGUAL Q5M PRN 06/06/20 [History] amLODIPine BESYLATE/BENAZEPRIL [amLODIPine BESYLATE/BENAZEPRIL 5-10 MG] 1 cap PO BID 06/06/20 [History] sitaGLIPtin PHOS/metFORMIN HCL [Janumet 50-500 mg Tablet] 1 tab PO DAILY 02/18/21 [History] Carbidopa-Levodopa ER 25-100Mg [Sinemet CR 25-100 mg] 1 tab PO BID 02/20/21 [History] Clopidogrel Bisulfate [Plavix] 75 mg PO DAILY #90 tab 02/22/21 [Rx] Isosorbide Mononitrate ER [Imdur] 30 mg PO DAILY 30 Days #30 tab.er.24h 02/22/21 [Rx] Follow up Appointment(s)/Referral(s): Alonzo Cornelius MD [STAFF PHYSICIAN] - 1 Week Master Ochoa MD [Primary Care Provider] - 1-2 days Activity/Diet/Wound Care/Special Instructions: Activity: As tolerated. Diet: Heart healthy diet Special Instructions: You will need to follow up with Dr. Berrios and Dr. Cornelius upon discharge from rehabilation center. Your blood test for alkaline phosphatase was very elevated. Obstruction and medications have been ruled out, Advise further outpatient follow up with your PCP Dr. Ochoa to rule out any underlying bone disorders. Discharge Disposition: TRANSFER TO SNF/ECF
== END 2021-02-22 14:32 | DRG 247 ==
LOC: EC 10:54 → 6NMEDSUR 14:10 → OBSVTOIN 02-19 16:44
PROVIDERS: ADMIT Internal Medicine; ATTEND Internal Medicine
PROC: B2111ZZ Fluoroscopy of Multiple Coronary Arteries using Low Osmolar Contrast (ICD-10-PCS; 2021-02-20)
PROC: 027035Z Dilation of Coronary Artery, One Artery with Two Drug-eluting Intraluminal Devices, Percutaneous Approach (ICD-10-PCS; principal; 2021-02-20 09:51)
PROC: 4A023N7 Measurement of Cardiac Sampling and Pressure, Left Heart, Percutaneous Approach (ICD-10-PCS; 2021-02-20 09:51)
DX: I25.110 Atherosclerotic heart disease of native coronary artery with unstable angina pectoris (principal); G20 Parkinson's disease; Z95.5 Presence of coronary angioplasty implant and graft; Z79.82 Long term (current) use of aspirin; I44.7 Left bundle-branch block, unspecified; E11.9 Type 2 diabetes mellitus without complications; I10 Essential (primary) hypertension; Z20.822 Contact with and (suspected) exposure to COVID-19; Z85.828 Personal history of other malignant neoplasm of skin; D72.829 Elevated white blood cell count, unspecified; E78.5 Hyperlipidemia, unspecified; R20.0 Anesthesia of skin; F02.80 Dementia in other diseases classified elsewhere, unspecified severity, without behavioral disturbance, psychotic disturbance, mood disturbance, and anxiety; R74.8 Abnormal levels of other serum enzymes; I25.2 Old myocardial infarction; Z79.84 Long term (current) use of oral hypoglycemic drugs; D64.9 Anemia, unspecified
CPT/HCPCS: 36415; 71046; 76705; 78452; 80053; 80061; 83036; 83735; 84484; 85025; 85027; 85610; 85730; 87635; 93005; 93017; 93306; 93454; 94760; 99291

== ENCOUNTER 2021-03-07 15:22 | Inpatient (IN) | payer MEDICARE, BC ==
--- NOTE | 2021-03-07 15:39 | ED ---
General Adult HPI - General Chief complaint: Chest Pain Stated complaint: chest pain Time Seen by Provider: 03/07/21 15:26 Source: patient, EMS Mode of arrival: EMS Limitations: no limitations - History of Present Illness Initial comments: Patient presents to the ED by ambulance from his long term for evaluation with his son at bedside. Patient states that he has had fairly constant chest pressure since last night. Patient states that his chest pressure was 1/10 last night, and increased to 2-3/10 today. Patient was given 3 sublingual nitrogly cerin at his long term without any change in his pain. Patient was also given 4 baby aspirin by EMS. Patient admits to possibly having very mild nausea, but he denies any other associated symptoms. Patient denies trauma or injury, fever or chills, headache, focal numbness/weakness/neuro deficit, radiation of his pain, neck/arm/jaw/back pain, pleuritic pain, cough or cold symptoms, palpitations, dizziness, vomiting/diaphoresis, dysuria/urinary symptoms, decreased urine output, leg or calf swelling or pain, or any other symptoms or complaints. Patient states that he has a history of coronary artery disease, and he states he has 3 cardiac stents. - Related Data Home Medications Medication Instructions Recorded Confirmed Gabapentin [Neurontin] 100 mg PO TID 04/12/18 02/18/21 Metoprolol Tartrate [Lopressor] 25 mg PO TID 06/06/20 02/18/21 Nitroglycerin Sl Tabs [Nitrostat] 0.4 mg SUBLINGUAL Q5M PRN 06/06/20 02/18/21 amLODIPine BESYLATE/BENAZEPRIL 1 cap PO BID 06/06/20 02/18/21 [amLODIPine BESYLATE/BENAZEPRIL 5-10 MG] sitaGLIPtin PHOS/metFORMIN HCL 1 tab PO DAILY 02/18/21 02/18/21 [Janumet 50-500 mg Tablet] Carbidopa-Levodopa ER 25-100Mg 1 tab PO BID 02/20/21 02/20/21 [Sinemet CR 25-100 mg] Previous Rx's Medication Instructions Recorded Aspirin 81 mg PO DAILY chew 04/13/18 Atorvastatin [Lipitor] 80 mg PO HS 30 Days #30 tab 04/13/18 Clopidogrel Bisulfate [Plavix] 75 mg PO DAILY #90 tab 02/22/21 Isosorbide Mononitrate ER [Imdur] 30 mg PO DAILY 30 Days #30 02/22/21 tab.er.24h Allergies Allergy/AdvReac Type Severity Reaction Status Date / Time No Known Allergies Allergy Verified 02/18/21 13:14 Review of Systems ROS Statement: Those systems with pertinent positive or pertinent negative responses have been documented in the HPI. ROS Other: All systems not noted in ROS Statement are negative. Past Medical History Past Medical History: Coronary Artery Disease (CAD), Cancer, Diabetes Mellitus, Hypertension, Neurologic Disorder Additional Past Medical History / Comment(s): Hx skin Cancer on L arm, parkinson's. Had nasal packing r/t nose bleeds within the last week. February 04, 2021 History of Any Multi-Drug Resistant Organisms: None Reported Past Surgical History: Back Surgery, Heart Catheterization With Stent Additional Past Surgical History / Comment(s): Skin CA removed from L arm; Colonoscopy x2 Past Anesthesia/Blood Transfusion Reactions: No Reported Reaction Date of Last Stent Placement:: 04/12/18 Past Psychological History: No Psychological Hx Reported Smoking Status: Never smoker Past Alcohol Use History: None Reported Past Drug Use History: None Reported - Past Family History Mother Family Medical History: No Reported History Additional Family Medical History / Comment(s): mother alive ; 100 on 05/09/18 General Exam Limitations: no limitations General appearance: alert, in no apparent distress Head exam: Present: atraumatic, normocephalic Eye exam: Present: normal appearance, EOMI ENT exam: Present: mucous membranes moist Neck exam: Present: other (Trachea is in midline) Respiratory exam: Present: normal lung sounds bilaterally. Absent: respiratory distress, wheezes, rales, rhonchi, stridor, chest wall tenderness Cardiovascular Exam: Present: regular rate, normal rhythm, normal heart sounds, other (Normal radial pulses bilaterally) GI/Abdominal exam: Present: soft. Absent: distended, tenderness, guarding Extremities exam: Present: other (Negative Homans sign bilaterally). Absent: tenderness, pedal edema, calf tenderness Neurological exam: Present: alert, oriented X3, other (Baseline Parkinson's tremor). Absent: motor sensory deficit Psychiatric exam: Present: normal affect, normal mood Skin exam: Present: warm, dry, intact, normal color Course Vital Signs 03/07/21 03/07/21 03/07/21 15:30 16:43 18:00 Temperature 98.3 F 98.3 F 98.3 F Pulse Rate 78 69 77 Respiratory 16 16 16 Rate Blood Pressure 170/89 172/86 168/77 O2 Sat by Pulse 98 98 98 Oximetry - Reevaluation(s) Reevaluation #1: 03/07/21 18:42 Case, H&P, test results and ED management were discussed with Dr. salazar Dorantes. She accepts hospital admission. She has no further recommendations at this time. 03/07/21 18:56 Patient denies development of any new symptoms while in the ED. Patient remains alert and breathing comfortably with a normal room air oxygen saturation. Patient declines pain medication. Patient and son are aware the patient's test results, and they both agree with hospital admission at this time. EKG Findings - EKG Comments: EKG Findings:: Normal sinus rhythm, left bundle branch block, ventricular rate of 77 bpm, no ectopy, normal [place] interval, QRS duration of 140 ms, normal QTc interval, leftward axis, no significant change when compared to 02/18/2021 EKG Medical Decision Making - Medical Decision Making Patient's troponin is negative. Given the patient's CT angiography chest report, I suspect that the patient's chest pain and elevated alkaline phosphatase level are likely secondary to the bony lesions seen on CT. Dr. Dorantes has accepted hospital admission for further evaluation and cardiac monitoring. - Lab Data Result diagrams: 03/07/21 15:58 03/07/21 15:58 Lab Results 03/07/21 03/07/21 03/07/21 Range/Units 15:58 15:58 15:58 WBC 12.0 H (3.8-10.6) k/uL RBC 3.49 L (4.30-5.90) m/uL Hgb 10.5 L (13.0-17.5) gm/dL Hct 29.9 L (39.0-53.0) % MCV 85.9 (80.0-100.0) fL MCH 30.1 (25.0-35.0) pg MCHC 35.1 (31.0-37.0) g/dL RDW 13.8 (11.5-15.5) % Plt Count 173 (150-450) k/uL MPV 7.9 Neutrophils % 83 % Lymphocytes % 10 % Monocytes % 5 % Eosinophils % 1 % Basophils % 1 % Neutrophils # 9.9 H (1.3-7.7) k/uL Lymphocytes # 1.2 (1.0-4.8) k/uL Monocytes # 0.6 (0-1.0) k/uL Eosinophils # 0.1 (0-0.7) k/uL Basophils # 0.1 (0-0.2) k/uL PT 15.3 H (9.0-12.0) sec INR 1.5 H (<1.2) APTT 31.9 H (22.0-30.0) sec D-Dimer >34.10 H (<0.60) mg/L FEU Sodium 135 L (137-145) mmol/L Potassium 4.4 (3.5-5.1) mmol/L Chloride 101 (98-107) mmol/L Carbon Dioxide 24 (22-30) mmol/L Anion Gap 10 mmol/L BUN 27 H (9-20) mg/dL Creatinine 0.87 (0.66-1.25) mg/dL Est GFR (CKD-EPI)AfAm >90 (>60 ml/min/1.73 sqM) Est GFR (CKD-EPI)NonAf 79 (>60 ml/min/1.73 sqM) Glucose 180 H (74-99) mg/dL Calcium 9.3 (8.4-10.2) mg/dL Magnesium 2.2 (1.6-2.3) mg/dL Total Bilirubin 0.8 (0.2-1.3) mg/dL AST 220 H (17-59) U/L ALT 16 (4-49) U/L Alkaline Phosphatase 1929 H (38-126) U/L Troponin I (0.000-0.034) ng/mL NT-Pro-B Natriuret Pep pg/mL Total Protein 7.0 (6.3-8.2) g/dL Albumin 4.0 (3.5-5.0) g/dL 03/07/21 03/07/21 Range/Units 15:58 15:58 WBC (3.8-10.6) k/uL RBC (4.30-5.90) m/uL Hgb (13.0-17.5) gm/dL Hct (39.0-53.0) % MCV (80.0-100.0) fL MCH (25.0-35.0) pg MCHC (31.0-37.0) g/dL RDW (11.5-15.5) % Plt Count (150-450) k/uL MPV Neutrophils % % Lymphocytes % % Monocytes % % Eosinophils % % Basophils % % Neutrophils # (1.3-7.7) k/uL Lymphocytes # (1.0-4.8) k/uL Monocytes # (0-1.0) k/uL Eosinophils # (0-0.7) k/uL Basophils # (0-0.2) k/uL PT (9.0-12.0) sec INR (<1.2) APTT (22.0-30.0) sec D-Dimer (<0.60) mg/L FEU Sodium (137-145) mmol/L Potassium (3.5-5.1) mmol/L Chloride (98-107) mmol/L Carbon Dioxide (22-30) mmol/L Anion Gap mmol/L BUN (9-20) mg/dL Creatinine (0.66-1.25) mg/dL Est GFR (CKD-EPI)AfAm (>60 ml/min/1.73 sqM) Est GFR (CKD-EPI)NonAf (>60 ml/min/1.73 sqM) Glucose (74-99) mg/dL Calcium (8.4-10.2) mg/dL Magnesium (1.6-2.3) mg/dL Total Bilirubin (0.2-1.3) mg/dL AST (17-59) U/L ALT (4-49) U/L Alkaline Phosphatase (38-126) U/L Troponin I <0.012 (0.000-0.034) ng/mL NT-Pro-B Natriuret Pep 2380 pg/mL Total Protein (6.3-8.2) g/dL Albumin (3.5-5.0) g/dL - Radiology Data Radiology results: report reviewed (Chest x-ray: No active cardiopulmonary disease. No change.; CT angiography chest with IV contrast: No evidence of pulmonary embolism, subpleural pulmonary infiltrates at the posterior lung steward, osteoblastic changes suggestive of metastatic disease in the bony thorax) Disposition Clinical Impression: Chest pain, Elevated alkaline phosphatase level Narrative: Suspected bone metastases Disposition: ADMITTED IP TO THIS HOSP Condition: Stable Is patient prescribed a controlled substance at d/c from ED?: No Referrals: Master Ochoa MD [Primary Care Provider] - 1-2 days Time of Disposition: 18:43
[2021-03-07 16:14] LABS: Basophils # (A) 0.1 k/uL (0-0.2); Basophils % (A) 1 %; Eosinophils # (A) 0.1 k/uL (0-0.7); Eosinophils % (A) 1 %; HCT 29.9 % (39.0-53.0); HGB 10.5 gm/dL (13.0-17.5); Lymphocytes # (A) 1.2 k/uL (1.0-4.8); Lymphocytes % (A) 10 %; MCH 30.1 pg (25.0-35.0); MCHC 35.1 g/dL (31.0-37.0); MCV 85.9 fL (80.0-100.0); Mean Platelet Volume 7.9; Monocytes # (A) 0.6 k/uL (0-1.0); Monocytes % (A) 5 %; Neutrophils # (A) 9.9 k/uL (1.3-7.7); Neutrophils % (A) 83 %; Platelet Count 173 k/uL (150-450); RBC 3.49 m/uL (4.30-5.90); RDW 13.8 % (11.5-15.5)
[2021-03-07 16:22] LABS: ALT 16 U/L (4-49); AST 220 U/L (17-59); African American GFR (CKD) >90 (>60 ml/min/1.73 sqM); Anion Gap 10 mmol/L; Blood Urea Nitrogen 27 mg/dL (9-20); Calcium 9.3 mg/dL (8.4-10.2); Carbon Dioxide 24 mmol/L (22-30); Chloride 101 mmol/L (98-107); Glucose 180 mg/dL (74-99); Magnesium 2.2 mg/dL (1.6-2.3); Non-African American GFR(CKD) 79 (>60 ml/min/1.73 sqM); Potassium 4.4 mmol/L (3.5-5.1); Sodium 135 mmol/L (137-145); Total Bilirubin 0.8 mg/dL (0.2-1.3)
--- NOTE | 2021-03-07 16:23 | XR ---
EXAMINATION TYPE: XR chest 2V DATE OF EXAM: 03/07/2021 COMPARISON: 02/18/2021 HISTORY: Chest pain TECHNIQUE: FINDINGS: There is no heart failure nor confluent pneumonic infiltrate. Heart size is normal. Costoph renic angles are clear. There are no hilar masses. Thoracic aorta is atheromatous. IMPRESSION: No active cardiomegaly disease. No change.
[2021-03-07 16:29] LABS: Alkaline Phosphatase 1929 U/L (38-126)
[2021-03-07 16:32] LABS: INR 1.5 (<1.2); Partial Thromboplastin Time 31.9 sec (22.0-30.0); Prothrombin Time 15.3 sec (9.0-12.0)
[2021-03-07 16:45] LABS: D-Dimer >34.10 mg/L FEU (<0.60)
[2021-03-07] MEDS ORDERED: SODIUM CHLORIDE 0.9% 500 ML 500 ML IV ONE (16:47)
--- NOTE | 2021-03-07 17:28 | CT ---
EXAMINATION TYPE: CT chest angio for PE DATE OF EXAM: 03/07/2021 COMPARISON: None HISTORY: Chest pain, elevated d-dimer. CT DLP: 245.7 mGycm Automated exposure control for dose reduction was used. CONTRAST: Performed with IV Contrast, patient injected with 100 mL of Isovue 370. There are 3-D post processed images. There is subpleural posterior interstitial infiltrates at the lung bases. There is mild subsegmental atelectasis at the lung bases. Heart appears normal. There is no pericardial effusion. There is no pl eural effusion. There is no mediastinal adenopathy. Thoracic aorta is atheromatous. Ascending aorta measures 3.4 cm. There is no aneurysm or dissection. There are no hilar masses. There is normal contrast opacification of the pulmonary arteries. There are no filling defects. Ther e is some spurring in the thoracic spine. There is osteosclerosis in the sternum. There are multiple osteoblastic foci in the thoracic spine. IMPRESSION: No evidence of pulmonary embolism. Subpleural pulmonary infiltrates at the posterior lung steward. Osteoblastic changes suggestive of metastatic disease in the bony thorax. This appears new compared t o CT abdomen pelvis of 02/12/2020.
[2021-03-07 20:51] LABS: Glucose,Whole Blood 124 mg/dL (75-99)
[2021-03-07] MEDS: METOPROLOL TARTRATE 25 MG TAB PO SCH (21:02)
[2021-03-07] MEDS: GABAPENTIN 100 MG CAP PO SCH (21:02)
[2021-03-07] MEDS: ATORVASTATIN 80 MG TAB PO SCH (21:02)
[2021-03-07] MEDS: amLODIPine 5 MG TAB PO SCH (21:02)
[2021-03-07] MEDS: lisinopriL 10 MG TAB PO SCH (21:03)
[2021-03-07] MEDS: CARBIDOPA-LEVODOPA ER 25-100MG 1 EACH TABLET.ER PO SCH (21:03)
[2021-03-07 22:45] LABS: Glucose,Whole Blood 125 mg/dL (75-99)
[2021-03-08] MEDS: METOPROLOL TARTRATE 25 MG TAB PO SCH ×4 (02:00→20:11)
[2021-03-08] MEDS: INSULIN ASPART (NovoLOG) 100 UNIT/ML VIAL SQ SCH ×5 (02:00→21:51)
--- NOTE | 2021-03-08 02:30 | P.HPIM ---
History of Present Illness H&P Date: 03/07/21 Chief Complaint: Chest discomfort 85-year-old male with Parkinson, diabetes mellitus, CAD with recent stent Patient was discharged recently to senior care after being treated for coronary artery disease he had left heart cath on February 20 where he had stenting of branch of the RCA. Left ventricular EF was found to be 50-55% patient was started on aspirin and Plavix to an indoor metoprolol and amlodipine was discharged to [facility] Today he comes back from senior care for what he explains as chest pressure which started last night he rated the pain as 3-4 out of 10 in severity currently during the interview he denies any chest pain he claims that that's very mild if noticeable denies any associated nausea vomiting diaphoresis or shortness of breath however the pain that he experienced at the senior care was not improving with nitro and aspirin for which she was sent in here for evaluation due to his recent cardiac history Upon presentation he was found to have chronic anemia with hemoglobin of 10.5 elevated d-dimer for which CTA of the chest was done this time showed no acute PE however it did show osteoblastic lesions multiple suspicious of metastatic disease and the bony thorax Liver enzymes are elevated with alk phos and AST both severely elevated Patient admitted for further workup Review of Systems Pertinent positives as noted in HPI. All other systems were reviewed and are negative Past Medical History Past Medical History: Coronary Artery Disease (CAD), Cancer, Diabetes Mellitus, Hypertension, Neurologic Disorder Additional Past Medical History / Comment(s): Hx skin Cancer on L arm, parkinson's. Had nasal packing r/t nose bleeds within the last week. February 04, 2021 History of Any Multi-Drug Resistant Organisms: None Reported Past Surgical History: Back Surgery, Heart Catheterization With Stent Additional Past Surgical History / Comment(s): Skin CA removed from L arm; Colonoscopy x2 Past Anesthesia/Blood Transfusion Reactions: No Reported Reaction Date of Last Stent Placement:: 04/12/18 Past Psychological History: No Psychological Hx Reported Smoking Status: Never smoker Past Alcohol Use History: None Reported Past Drug Use History: None Reported - Past Family History Mother Family Medical History: No Reported History Additional Family Medical History / Comment(s): mother alive ; 100 on 05/09/18 Medications and Allergies Home Medications Medication Instructions Recorded Confirmed Type Gabapentin [Neurontin] 100 mg PO TID@0600,1400,2200 04/12/18 03/07/21 History Metoprolol Tartrate [Lopressor] 25 mg PO TID@0800,1200,1700 06/06/20 03/07/21 History Nitroglycerin Sl Tabs [Nitrostat] 0.4 mg SUBLINGUAL Q5M PRN 06/06/20 03/07/21 History amLODIPine BESYLATE/BENAZEPRIL 1 cap PO BID@0800,1700 06/06/20 03/07/21 History [amLODIPine BESYLATE/BENAZEPRIL 5-10 MG] sitaGLIPtin PHOS/metFORMIN HCL 1 tab PO DAILY@0800 02/18/21 03/07/21 History [Janumet 50-500 mg Tablet] Carbidopa-Levodopa ER 25-100Mg 1 tab PO BID@0800,1700 02/20/21 03/07/21 History [Sinemet CR 25-100 mg] Aspirin EC [Ecotrin Low Dose] 81 mg PO DAILY@1700 03/07/21 03/07/21 History Atorvastatin Calcium [Lipitor] 80 mg PO HS@2100 03/07/21 03/07/21 History Clopidogrel Bisulfate [Plavix] 75 mg PO DAILY@0800 03/07/21 03/07/21 History Glucerna Shake 237 ml PO TID@0800,1200,1700 03/07/21 03/07/21 History Isosorbide Mononitrate ER [Imdur] 30 mg PO DAILY@0800 03/07/21 03/07/21 History Magnesium Hydroxide [Milk of 7,200 mg PO DAILY PRN 03/07/21 03/07/21 History Magnesia Concentrate] Na Phos,M-B/Na Phos,Di-Ba [Fleet 133 ml RECTAL DAILY PRN 03/07/21 03/07/21 History Adult] bisacodyL [Dulcolax] 10 mg RECTAL DAILY PRN 03/07/21 03/07/21 History Allergies Allergy/AdvReac Type Severity Reaction Status Date / Time No Known Allergies Allergy Verified 03/07/21 19:22 Physical Exam Vitals: Vital Signs Temp Pulse Resp BP Pulse Ox 03/07/21 18:00 98.3 F 77 16 168/77 98 03/07/21 16:43 98.3 F 69 16 172/86 98 07/04/21 15:30 98.3 F 78 16 170/89 98 Intake and Output 03/07/21 03/07/21 03/07/21 06:59 14:59 22:59 Other: Weight 58.967 kg Constitutional: No acute distress, conversant, pleasant Eyes: Anicteric sclerae, moist conjunctiva, Pupils equal round reactive to light ENMT: NC/AT Oropharynx clear, no erythema, or exudates Neck: Supple, FROM, no masses, or JVD No carotid bruits No thyromegaly Lungs: Clear to auscultation Clear to percussion Normal respiratory effort, no accessory muscle use Cardiovascular: Heart regular in rate and rhythm, No murmurs, gallops, or rubs No peripheral edema Abdominal: Soft Nontender, no guarding, rebound or rigidity Abdomen moving with respiration Normoactive bowel sounds No hepatomegaly, No splenomegaly No palpable mass No abdominal wall hernia noted Skin: Normal temperature, tone, texture, turgor No induration No subcutaneous nodules No rash, lesions No ulcers Extremities: No digital cyanosis No clubbing Pedal pulses intact and symmetrical Radial pulses intact and symmetrical No calf tenderness Psychiatric: Alert and oriented to person, place Appropriate affect Neuro Muscles Strength 4/5 in all 4 extremities Sensation to light touch grossly present throughout Cranial nerves II-XII grossly intact No focal sensory deficits Lymphatics: no palpable cervical or supraclavicular , or inguinal lymph nodes Results CBC & Chem 7: 03/07/21 15:58 03/07/21 15:58 Labs: Abnormal Lab Results - Last 24 Hours (Table) 03/07/21 03/07/21 03/07/21 Range/Units 15:58 15:58 15:58 WBC 12.0 H (3.8-10.6) k/uL RBC 3.49 L (4.30-5.90) m/uL Hgb 10.5 L (13.0-17.5) gm/dL Hct 29.9 L (39.0-53.0) % Neutrophils # 9.9 H (1.3-7.7) k/uL PT 15.3 H (9.0-12.0) sec INR 1.5 H (<1.2) APTT 31.9 H (22.0-30.0) sec D-Dimer >34.10 H (<0.60) mg/L FEU Sodium 135 L (137-145) mmol/L BUN 27 H (9-20) mg/dL Glucose 180 H (74-99) mg/dL AST 220 H (17-59) U/L Alkaline Phosphatase 1929 H (38-126) U/L Assessment and Plan Assessment: Chest pain most likely secondary to osteoblastic changes of the bony thorax suspected metastatic disease Incidental finding of bony thorax osteoblastic lesions multiple suspicious of p rostatic disease Elevated liver enzymes Plan cardiology evaluation to rule out ACS Pain control Trend troponins Cardiac monitoring Oncology on consultation Pain control Resume cardiac meds aspirin and statin and Plavix and metoprolol amlodipine Chronic conditions Diabetes mellitus insulin sliding scale Parkinson disease continue home meds Preformed a thorough record review from recent hospitalization from his recent hospitalization where he was discharged about 2 weeks ago for which she was a dmitted for acute coronary syndrome resulted in stenting of his RCA branch CODE STATUS: Full code DVT prophylaxis: Lovenox subcu Discussed with: Patient, ER, RN Anticipated length of stay less than [address]: Back to senior care A total of 65 minutes was spent on the care of this complex patient more than 50% of the time was spent in counseling and care coordination.
[2021-03-08 06:40] LABS: Glucose,Whole Blood 126 mg/dL (75-99)
[2021-03-08] MEDS: CLOPIDOGREL 75 MG TAB PO SCH (08:35)
[2021-03-08] MEDS: GABAPENTIN 100 MG CAP PO SCH ×3 (08:36→20:11)
[2021-03-08] MEDS: CARBIDOPA-LEVODOPA ER 25-100MG 1 EACH TABLET.ER PO SCH ×2 (08:36→20:11)
[2021-03-08] MEDS: amLODIPine 5 MG TAB PO SCH ×2 (08:36→20:11)
[2021-03-08] MEDS ORDERED: ISOSORBIDE MONONITRATE ER 30 MG TAB.ER.24H PO SCH (09:00)
[2021-03-08] MEDS ORDERED: ASPIRIN 81 MG PO SCH (09:00)
[2021-03-08 09:19] LABS: Basophils # (A) 0.06 X 10*3/uL (0.00-0.10); Basophils % (A) 0.6 %; Eosinophils # (A) 0.16 X 10*3/uL (0.04-0.35); Eosinophils % (A) 1.6 %; HCT 29.4 % (39.6-50.0); HGB 9.8 g/dL (13.0-17.0); Lymphocytes # (A) 1.85 X 10*3/uL (0.90-5.00); Lymphocytes % (A) 17.9 %; MCH 29.2 pg (27.0-32.0); MCHC 33.3 g/dL (32.0-37.0); MCV 87.5 fL (80.0-97.0); Monocytes # (A) 0.95 X 10*3/uL (0.20-1.00); Monocytes % (A) 9.2 %; Neutrophils # (A) 6.96 X 10*3/uL (1.80-7.70); Neutrophils % (A) 67.5 %; Platelet Count 127 X 10*3/uL (140-440); RBC 3.36 X 10*6/uL (4.40-5.60); RDW 13.6 % (11.5-14.5); WBC 10.31 X 10*3/uL (4.50-10.00)
[2021-03-08 09:58] LABS: African American GFR (CKD) 90.6 (60.0-200.0); Albumin 3.9 g/dL (3.80-4.90); Albumin/Globulin Ratio 1.56 (1.60-3.17); Anion Gap 11.2 mmol/L (4.00-12.00); BUN/Creat Ratio 32.22 Ratio (12.00-20.00); Calcium 9.1 mg/dL (8.7-10.3); Carbon Dioxide 21.8 mmol/L (21.6-31.8); Globulin 2.5 g/dL (1.6-3.3); Non-African American GFR(CKD) 78.2 (60.0-200.0); Potassium 3.9 mmol/L (3.5-5.5); Total Bilirubin 0.9 mg/dL (0.3-1.2); Total Protein 6.4 g/dL (6.2-8.2)
--- NOTE | 2021-03-08 11:43 | CONS ---
CONSULTATION HISTORY: Mr. Lai is an 85-year-old male who was admitted yesterday with symptoms of chest discomfort. The patient was in the hospital recently with symptoms of chest discomfort. He has a known history of coronary artery disease, has been followed by Dr. Barros, had a prior percutaneous revascularization of his circumflex and the right coronary artery. Also has a history of Parkinson disease. During his last admission, he had no evidence of acute myocardial infarction. Because of symptoms, he underwent myocardial perfusion imaging that revealed evidence of inducible ischemia with a fixed defect involving the apex and reversible defect close to it. He subsequently underwent repeat cardiac catheterization by Dr. Barros and was found to have diffuse disease in the diagonal branch and obstructive disease in the PLV. He underwent stenting of that branch by Dr. Dominguez with placement of a 2.5 x 18 and 3.0 x 15 mm Xience stent. The patient was readmitted because of symptoms of chest discomfort that has been going on for the last 2 days. The discomfort was not associated with any dyspnea or dizziness. No palpitations. On presentation, he was noted to have an elevated alkaline phosphatase and his CT scan of the chest showed osteoplastic lesions suggestive of metastatic disease. The patient has weight loss and his appetite is poor. He is feeling weak. He has no dizziness, palpitation. No syncope. No PND, nor orthopnea. His coronary risk factors are remarkable for the history of diabetes, hypertension and hyperlipidemia. He is a nonsmoker. MEDICATION: His medications at home include aspirin, Lipitor 80 mg daily, isosorbide mononitrate 30 mg daily, Plavix 75 mg daily, amlodipine benazepril 5/10 mg twice a day, Janumet 50/500 mg daily, Sinemet, Neurontin, metoprolol tartrate 25 mg 3 times a day. REVIEW OF SYSTEMS: Respiratory system: He has no recent wheezing or cough. No history of documented obstructive lung disease. GI system: He has weight loss, but no nausea or vomiting. No GI bleeding. system: No dysuria or hematuria. Nervous system: He has a history of Parkinson's. PHYSICAL EXAMINATION: An 85-year-old male, alert, oriented, tremors noted. Blood pressure running in the 150s and 170s with a heart rate in 70s. HEAD: Normocephalic. Eyes sclerae anicteric. NECK: Good upstroke no bruit. LUNGS: Clear to auscultation. HEART: Regular rhythm S1, S2. No S3 with systolic ejection murmur at the base ejection type no diastolic murmur no rub. ABDOMEN: Soft nontender positive bowel sounds no megaly. EXTREMITIES: No edema. Intact pulses. Chest wall with mild tenderness points reproducing the pain. LAB DATA: Hemoglobin 9.8 and hemoglobin of 10.3 with a platelet count 127. BUN and creatinine of 29 and 0.9. His AST is 24, alkaline phosphatase is 2042, which is up compared to yesterday. His troponin less than 0.012. NT proBNP 2380. His D-dimer was above 34. His EKG revealed a sinus mechanism, rate of 77, left axis deviation, left bundle branch block. Reviewing the old EKG, there are no acute changes. His chest x-ray shows no infiltrate. His chest CT angiogram to rule out pulmonary embolism showed no pulmonary embolism with the osteoplastic changes consistent with metastatic disease involving the bony thorax which have not been documented on the CT scan obtained in February of 2020. IMPRESSION: 1. Chest discomfort, appears to be atypical for ischemic heart disease, probable musculoskeletal etiology mostly related to the bone lesions related to the osteoplastic changes. 2. Osteoplastic lesion suggestive of metastatic disease with elevated alkaline phosphatase. 3. History of hypertension. 4. Hyperlipidemia. 5. Diabetes mellitus. 6. History of Parkinson. RECOMMENDATION: I see no evidence to suggest stent closure. At this time, the patient would require further evaluation for his abnormal CT scan. From the cardiac standpoint I will increase the dose of his ALVARADO inhibitor to optimize his blood pressure control. I discussed those findings with the patient and his family. Depending on his progress further recommendation will be made. Thank you for this consult. We will follow with you. MMODL / IJN: [id number] /
[2021-03-08 11:50] LABS: Glucose,Whole Blood 158 mg/dL (75-99)
[2021-03-08] MEDS: ENOXAPARIN 40 MG/0.4 ML SYRINGE SQ SCH (11:54)
--- NOTE | 2021-03-08 13:25 | P.PN ---
<Jamaal Montejo - Last Filed: 03/08/21 13:03> Progress Note - Text Progress Note Date: 03/08/21 Hospital course: Patient is a very pleasant 85-year-old male with a past medical history of CAD with stents and most recent stent being placed to RCA on 02/20/21, hypertension, hyperlipidemia, [id number] diabetes mellitus type 2, and Parkinson's disease. He presented to the emergency department with a chief complaint of persistent mild chest pressure. He was seen and fully evaluated in the emergency department. Chest x-ray negative for acute cardiopulmonary process. EKG showing normal sinus rhythm at 77 bpm with a left bundle branch block, unchanged from previous EKGs. Troponins negative <0.0123. CTA chest was completed negative for acute pulmonary embolism, however osteoporotic changes were noted throughout the bony thorax suggestive of metastatic disease reported as being newly appearing when compared to CT of abdomen and pelvis on 02/12/2020. Patient admitted under our services with consultation to cardiology and oncology. Physical exam: Patient was seen and fully evaluated at the bedside this morning. He was sitting up on side of bed and his son was sitting at the chair at his bedside. Patient was updated on CT findings and concerns for potential metastatic process. Patient reports mild chest pressure remains persistent and unchanged. He denies having pain states just mild pressure to midsternal chest. Patient denies having any headache, lightheadedness, dizziness, palpitations, shortness of breath, nausea, vomiting, abdominal pain, or experiencing any numbness/tingling/weakness/swelling in his extremities. General: non toxic, no distress, appears at stated age Derm: warm, dry Head: atraumatic, normocephalic, symmetric Eyes: EOMI, no lid lag, anicteric sclera Mouth: no lip lesion, mucus membranes moist Cardiovascular: S1S2 reg, no murmur, positive posterior tibial pulse bilateral, Lungs: CTA bilateral, no rhonchi, no rales , no accessory muscle use Abdominal: soft, nontender to palpation, no guarding, no appreciable organomegaly Ext: no gross muscle atrophy, no edema, no contractures Neuro: speech clear, face symmetrical. GCS 15. Positive for resting tremors. Psych: Alert, oriented, appropriate affect Plan of care: Atypical Chest pain, acute coronary event ruled out -Chest x-ray negative for acute cardiopulmonary process. -EKG showing normal sinus rhythm at 77 bpm with a left bundle branch block, unchanged from previous EKGs. -Troponins negative <0.012 3 draws. -CTA chest was completed negative for acute pulmonary embolism, however osteoporotic changes were noted throughout the bony thorax suggestive of metastatic disease reported as being newly appearing when compared to CT of abdomen and pelvis on 02/12/2020. -Cardiology following, recommended increasing dose of ALVARADO inhibitor to optimize blood pressure control. -Oncology consulted for further metastatic workup. Elevated alkaline phosphatase -Alkaline phosphatase initially 1929 and repeat a.m. labs reveal 2041. -CTA chest was completed negative for acute pulmonary embolism, however osteoporotic changes were noted throughout the bony thorax suggestive of metastatic disease reported as being newly appearing when compared to CT of abdomen and pelvis on 02/12/2020. -Hematology/Oncology consulted, appreciate further recommendations Parkinson's disease -Safe and supportive care. -Continue carbidopa/levodopa. -Fall precautions. Aio-ehvetek-lcagaatfo diabetes mellitus type 2 -Hold Glucophage in place patient on glycemic protocol with NovoLog sliding scale. Hypertension -Monitor vital signs and continue daily medication management with amlodipine, isosorbide mononitrate, lisinopril, metoprolol. Cardiology evaluated and recommended increasing dose of lisinopril to optimize blood pressure control. Hyperlipidemia -Continue daily medication regimen with atorvastatin 80 mg nightly. CODE STATUS: Full code DVT prophylaxis: Lovenox Discussed with: patient, son, and RN Anticipated discharge date: clinical course to determine Anticipated discharge place: home with homecare versus SNF A total of 45 minutes was spent on the care of this complex patient more than 50% of the time was spent in counseling and care coordination. <Josue Sher - Last Filed: 03/08/21 16:09> Progress Note - Text Jamaal Montejo NP rendered care for this patient independently, reviewed the findin gs and plan as documented in the note above. I did not physically speak with or examine the patient on this date.
[2021-03-08] MEDS: IOPAMIDOL CONTRAST (ORAL USE) VIAL PO PRN ×2 (13:59→14:51)
--- NOTE | 2021-03-08 16:20 | CT ---
EXAMINATION TYPE: CT abdomen pelvis w con DATE OF EXAM: 03/08/2021 COMPARISON: 02/12/2020 HISTORY: 85-year-old male mets, osteoblastic bone lesions TECHNIQUE: Contiguous axial scanning of the abdomen and pelvis following administration of 100 ml Iso arnulfo 300 IV contrast. Delayed images through the kidneys and coronal/sagittal reconstructions perform ed. CT DLP: 429.6 mGycm Automated exposure control for dose reduction was used. FINDINGS: Heart upper limits of normal in size without pericardial effusion. Circumflex and RCA coronary artery calcifications are demonstrated. Strandy posterior basilar atelectasis without pleural effusion. No focal liver lesion or biliary ductal dilatation. Portal venous system is patent. Gallbladder, left adrenal gland, kidneys, spleen, and pancreas within normal limits. Moderate atherosclerotic calcifications infrarenal abdominal aorta without aneurysm. No dilated small bowel, free fluid, or free air. No mesenteric or retroperitoneal lymphadenopathy. Normal appendix. Some soft tissue thickening at the ileocecal junction, coronal image 36 and axial im age 48. Direct visualization recommended to exclude neoplasm. There is moderate stool burden and mild ly redundant mid to distal sigmoid colon. No pericolonic inflammatory change. Bladder partially collapsed. Prostate gland is enlarged at 6.1 cm wide. Areas of heterogeneous enhan cement are present within. No abnormal fluid collection in the pelvis or pelvic lymphadenopathy. Bones: Diffuse heterogeneous osteosclerosis. Moderate to advanced degenerative disc disease L2-L3 and L3-L4 and hypertrophic facet arthropathy mid to lower lumbar spine. Degenerative grade 1 retrolisthe sis L2-L3 and L3-L4. At least moderate spinal canal stenoses at both of these levels. IMPRESSION: 1. NOTED ON THE RECENT 03/07/2021 CT CHEST, DIFFUSE HETEROGENEOUS OSTEOSCLEROSIS IS NEW COMPARED TO 02/12/2020. FINDINGS SUGGEST DIFFUSE OSTEOBLASTIC METASTASES. 2. 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 AREAS OF HETEROGENEOUS ENHANCEMENT ARE PRESENT WITHIN AND COULD REF LECT BPH OR UNDERLYING PROSTATE CANCER. CORRELATE WITH PSA AND ULTRASOUND INDICATED. 3. COLONIC SOFT TISSUE THICKENING AT THE ILEOCECAL REGION, AXIAL IMAGE 47. THIS COULD REPRESENT CLUMP ED UP STOOL. RECOMMEND DIRECT VISUALIZATION TO EXCLUDE A MUCOSAL LESION/NEOPLASM.
--- NOTE | 2021-03-08 16:33 | P.CONS ---
History of Present Illness - Reason for Consult Consult date: 03/08/21 osteoblastic lesions Requesting physician: Jamaal Montejo - Chief Complaint chest pain - History of Present Illness Mr. Lai is a very pleasant 85-year-old male with moderate Parkinson's disease we've been asked to see in regards to osteoblastic lesions found incidentally on chest imaging. Patient came into the hospital with complaints of chest pain, substernal, non-radiating, patient denied sweats, nausea, numbness or tingling. Patient has noted about a 10 pound weight loss in the last month, increased fatigue started about 2 weeks ago, sleeping quite a bi t, some dysphagia-harder to swallow pills-denied unusual cough, difficulty in breathing, abdominal pain or cramping, acute changes in bowel or bladder habits, no swelling in the lower extremities, no other unusual pain to report. He recently had a cardiac stent placement a few weeks ago, he is never been told before that he had low blood counts. He had a melanoma removed from his left upper arm about 4-5 years ago, no other malignancies to report. he is not sure when his PSA was last checked. Review of Systems 10 point ROS is neg except as stated in HPI Past Medical History Past Medical History: Coronary Artery Disease (CAD), Cancer, Diabetes Mellitus, Hypertension, Neurologic Disorder Additional Past Medical History / Comment(s): Hx skin Cancer on L arm, parkinson's. Had nasal packing r/t nose bleeds within the last week. February 04, 2021 History of Any Multi-Drug Resistant Organisms: None Reported Past Surgical History: Back Surgery, Heart Catheterization With Stent Additional Past Surgical History / Comment(s): Skin CA removed from L arm; Colonoscopy x2 Past Anesthesia/Blood Transfusion Reactions: No Reported Reaction Date of Last Stent Placement:: 04/12/18 Past Psychological History: No Psychological Hx Reported Smoking Status: Never smoker Past Alcohol Use History: None Reported Past Drug Use History: None Reported - Past Family History Mother Family Medical History: No Reported History Additional Family Medical History / Comment(s): mother alive ; 100 on 05/09/18 Medications and Allergies Home Medications Medication Instructions Recorded Confirmed Type Gabapentin [Neurontin] 100 mg PO TID@0600,1400,2200 04/12/18 03/07/21 History Metoprolol Tartrate [Lopressor] 25 mg PO TID@0800,1200,1700 06/06/20 03/07/21 History Nitroglycerin Sl Tabs [Nitrostat] 0.4 mg SUBLINGUAL Q5M PRN 06/06/20 03/07/21 History amLODIPine BESYLATE/BENAZEPRIL 1 cap PO BID@0800,1700 06/06/20 03/07/21 History [amLODIPine BESYLATE/BENAZEPRIL 5-10 MG] sitaGLIPtin PHOS/metFORMIN HCL 1 tab PO DAILY@0800 02/18/21 03/07/21 History [Janumet 50-500 mg Tablet] Carbidopa-Levodopa ER 25-100Mg 1 tab PO BID@0800,1700 02/20/21 03/07/21 History [Sinemet CR 25-100 mg] Aspirin EC [Ecotrin Low Dose] 81 mg PO DAILY@1700 03/07/21 03/07/21 History Atorvastatin Calcium [Lipitor] 80 mg PO HS@2100 03/07/21 03/07/21 History Clopidogrel Bisulfate [Plavix] 75 mg PO DAILY@0800 03/07/21 03/07/21 History Glucerna Shake 237 ml PO TID@0800,1200,1700 03/07/21 03/07/21 History Isosorbide Mononitrate ER [Imdur] 30 mg PO DAILY@0800 03/07/21 03/07/21 History Magnesium Hydroxide [Milk of 7,200 mg PO DAILY PRN 03/07/21 03/07/21 History Magnesia Concentrate] Na Phos,M-B/Na Phos,Di-Ba [Fleet 133 ml RECTAL DAILY PRN 03/07/21 03/07/21 History Adult] bisacodyL [Dulcolax] 10 mg RECTAL DAILY PRN 03/07/21 03/07/21 History Allergies Allergy/AdvReac Type Severity Reaction Status Date / Time No Known Allergies Allergy Verified 03/07/21 19:22 Physical Exam Vitals: Vital Signs Temp Pulse Pulse Resp BP BP BP 03/08/21 08:00 16 03/08/21 06:32 98.3 F 72 16 159/70 03/08/21 02:00 98.3 F 76 16 155/66 03/07/21 23:24 79 16 03/07/21 20:03 97.9 F 79 16 174/62 03/07/21 20:00 79 16 03/07/21 18:00 98.3 F 77 16 168/77 03/07/21 16:43 98.3 F 69 16 172/86 03/07/21 15:30 98.3 F 78 16 170/89 Pulse Ox 03/08/21 08:00 03/08/21 06:32 96 03/08/21 02:00 99 03/07/21 23:24 03/07/21 20:03 97 03/07/21 20:00 03/07/21 18:00 98 03/07/21 16:43 98 03/07/21 15:30 98 Intake and Output 03/07/21 03/08/21 03/08/21 22:59 06:59 14:59 Intake Total 100 Output Total 200 Balance -100 Intake: Oral 100 Output: Urine 200 Other: # Voids 2 1 1 # Bowel Movements 0 Weight 58.967 kg - Constitutional General appearance: cooperative, no acute distress, thin - EENT Eyes: anicteric sclerae, EOMI ENT: hearing grossly normal, normal oropharynx - Neck Neck: no lymphadenopathy - Respiratory Respiratory: bilateral: CTA - Cardiovascular Rhythm: regular Heart sounds: normal: S1, S2 Abnormal Heart Sounds: no systolic murmur, no diastolic murmur, no rub, no S3 Gallop, no S4 Gallop, no click, no other leg Peripheral Edema: bilateral: None - Gastrointestinal General gastrointestinal: no absent bowel sounds, no decreased bowel sounds, no distended, no hepatomegaly, no hyperactive bowel sounds, normal bowel sounds, no organomegaly, no rigid, no scaphoid, soft, no splenomegaly, no tenderness, no umbilical hernia, no ventral hernia - Integumentary Integumentary: pale - Neurologic Parkinson's tremor at rest, moderate - Musculoskeletal Pt c/o pain at the inferior aspect of the body of sternum Musculoskeletal: generalized weakness, strength equal bilaterally - Psychiatric Psychiatric: A&O x's 3, appropriate affect, intact judgment & insight Results CBC & Chem 7: 03/08/21 04:50 03/08/21 04:50 Labs: Abnormal Lab Results - Last 24 Hours (Table) 03/07/21 03/07/21 03/07/21 Range/Units 15:58 15:58 15:58 WBC 12.0 H (3.8-10.6) k/uL RBC 3.49 L (4.30-5.90) m/uL Hgb 10.5 L (13.0-17.5) gm/dL Hct 29.9 L (39.0-53.0) % Plt Count (140-440) X 10*3/uL Immature Gran # (0.00-0.04) X 10*3/uL Neutrophils # 9.9 H (1.3-7.7) k/uL PT 15.3 H (9.0-12.0) sec INR 1.5 H (<1.2) APTT 31.9 H (22.0-30.0) sec D-Dimer >34.10 H (<0.60) mg/L FEU Sodium 135 L (137-145) mmol/L BUN 27 H (9-20) mg/dL BUN/Creatinine Ratio (12.00-20.00) Ratio Glucose 180 H (74-99) mg/dL POC Glucose (mg/dL) (75-99) mg/dL AST 220 H (17-59) U/L Alkaline Phosphatase 1929 H (38-126) U/L Albumin/Globulin Ratio (1.60-3.17) g/dL 03/07/21 03/07/21 03/08/21 Range/Units 20:49 22:44 04:50 WBC 10.31 H (3.8-10.6) k/uL RBC 3.36 L (4.30-5.90) m/uL Hgb 9.8 L (13.0-17.5) gm/dL Hct 29.4 L (39.0-53.0) % Plt Count 127 L (140-440) X 10*3/uL Immature Gran # 0.33 H (0.00-0.04) X 10*3/uL Neutrophils # (1.3-7.7) k/uL PT (9.0-12.0) sec INR (<1.2) APTT (22.0-30.0) sec D-Dimer (<0.60) mg/L FEU Sodium (137-145) mmol/L BUN (9-20) mg/dL BUN/Creatinine Ratio (12.00-20.00) Ratio Glucose (74-99) mg/dL POC Glucose (mg/dL) 124 H 125 H (75-99) mg/dL AST (17-59) U/L Alkaline Phosphatase (38-126) U/L Albumin/Globulin Ratio (1.60-3.17) g/dL 03/08/21 03/08/21 03/08/21 Range/Units 04:50 06:32 11:49 WBC (3.8-10.6) k/uL RBC (4.30-5.90) m/uL Hgb (13.0-17.5) gm/dL Hct (39.0-53.0) % Plt Count (140-440) X 10*3/uL Immature Gran # (0.00-0.04) X 10*3/uL Neutrophils # (1.3-7.7) k/uL PT (9.0-12.0) sec INR (<1.2) APTT (22.0-30.0) sec D-Dimer (<0.60) mg/L FEU Sodium (137-145) mmol/L BUN 29.0 H (9-20) mg/dL BUN/Creatinine Ratio 32.22 H (12.00-20.00) Ratio Glucose 150 H (74-99) mg/dL POC Glucose (mg/dL) 126 H 158 H (75-99) mg/dL AST 124 H (17-59) U/L Alkaline Phosphatase 2042 H (38-126) U/L Albumin/Globulin Ratio 1.56 L (1.60-3.17) g/dL CT scan - chest: report reviewed Assessment and Plan (1) Bone lesion Current Visit: Yes Status: Acute Priority: High Code(s): M89.9 - DISORDER OF BONE, UNSPECIFIED SNOMED Code(s): 984814989 (2) Elevated alkaline phosphatase level Current Visit: Yes Status: Acute Priority: High Code(s): R74.8 - ABNORMAL LEVELS OF OTHER SERUM ENZYMES SNOMED Code(s): 651283661 (3) Melanoma Current Visit: No Status: Chronic Priority: Medium Code(s): C43.9 - MALIGNANT MELANOMA OF SKIN, UNSPECIFIED SNOMED Code(s): 700739584 (4) Normocytic normochromic anemia Current Visit: Yes Status: Acute Priority: Medium Code(s): D64.9 - ANEMIA, UNSPECIFIED SNOMED Code(s): 39510827 (5) Thrombocytopenia Current Visit: Yes Status: Acute Priority: Medium Code(s): D69.6 - THROMBOCYTOPENIA, UNSPECIFIED SNOMED Code(s): 874219375 Plan: Patient presentation and acute changes in his health and lab values is concerning for underlying malignant process. Patient has a history of a melanoma about 4-5 years ago but, this also needs to be taken into consideration. Workup has been ordered for abnormal blood counts. CT of the abdomen and pelvis, nuclear medicine bone scan for osteoblastic lesions. PSA ordered. Pending results, we'll follow up with the patient and his son and review results and make further recommendations. attests I have seen and examined patient, performed H&P, developed impress ion and plan of care. Discussed with dictator. Agree with documentation. Documented as a scribe
[2021-03-08] MEDS: ASPIRIN 81 MG PO SCH (16:34)
[2021-03-08 16:42] LABS: Glucose,Whole Blood 98 mg/dL (75-99)
[2021-03-08 18:06] LABS: Protein, Total 6.4 g/dL (6.2-8.2)
[2021-03-08] MEDS: ATORVASTATIN 80 MG TAB PO SCH (20:11)
[2021-03-08] MEDS: lisinopriL 20 MG TAB PO SCH (20:12)
[2021-03-08 20:55] LABS: Glucose,Whole Blood 126 mg/dL (75-99)
[2021-03-09 07:32] LABS: Glucose,Whole Blood 135 mg/dL (75-99)
[2021-03-09] MEDS: INSULIN ASPART (NovoLOG) 100 UNIT/ML VIAL SQ SCH ×4 (09:17→20:57)
[2021-03-09] MEDS: ISOSORBIDE MONONITRATE ER 30 MG TAB.ER.24H PO SCH (09:18)
[2021-03-09] MEDS: amLODIPine 5 MG TAB PO SCH ×2 (09:18→20:57)
[2021-03-09] MEDS: lisinopriL 20 MG TAB PO SCH ×2 (09:19→20:57)
[2021-03-09] MEDS: METOPROLOL TARTRATE 25 MG TAB PO SCH ×3 (09:19→20:57)
[2021-03-09] MEDS: CARBIDOPA-LEVODOPA ER 25-100MG 1 EACH TABLET.ER PO SCH ×2 (09:19→20:58)
[2021-03-09] MEDS: ENOXAPARIN 40 MG/0.4 ML SYRINGE SQ SCH (09:19)
[2021-03-09] MEDS: CLOPIDOGREL 75 MG TAB PO SCH (09:19)
[2021-03-09] MEDS: GABAPENTIN 100 MG CAP PO SCH ×3 (09:19→20:57)
[2021-03-09] MEDS: lisinopriL 10 MG TAB PO SCH (10:14)
--- NOTE | 2021-03-09 11:09 | P.PN ---
Subjective Progress Note Date: 03/09/21 Hospital course: Patient is a very pleasant 85-year-old male with a past medical history of CAD with stents and most recent stent being placed to RCA on 02/20/21, hypertension, hyperlipidemia, [id number] diabetes mellitus type 2, and Parkinson's disease. He presented to the emergency department with a chief complaint of persistent mild chest pressure. He was seen and fully evaluated in the emergency department. Chest x-ray negative for acute cardiopulmonary process. EKG showing normal sinus rhythm at 77 bpm with a left bundle branch block, unc hanged from previous EKGs. Troponins negative <0.0123. CTA chest was completed negative for acute pulmonary embolism, however osteoporotic changes were noted throughout the bony thorax suggestive of metastatic disease reported as being newly appearing when compared to CT of abdomen and pelvis on 02/12/2020. Patient admitted under our services with consultation to cardiology and oncology. CT abdomen and pelvis completed again showing findings suggestive for osteoblastic metastasis, prostamegaly, and colonic soft tissue thickening at the ileocecal region possibly representing clumped stool but unable to exclude a mucosal lesion/neoplasm. Physical exam: Patient was seen and fully evaluated at the bedside this morning. He was sitting up on side of bed and his son was sitting at the chair at his bedside. Patient eating breakfast and getting ready to go down for a nuclear bone scan. He reports that he continues to have the mild chest pressure unchanged but again denies it being painful stating I can just feel it. Patient denies having any other complaints or needs at this time including headache, lightheadedness, dizziness, palpitations, shortness of breath, abdominal pain nausea or vomiting. General: non toxic, no distress, appears at stated age Derm: warm, dry Head: atraumatic, normocephalic, symmetric Eyes: EOMI, no lid lag, anicteric sclera Mouth: no lip lesion, mucus membranes moist Cardiovascular: S1S2 reg, no murmur, positive posterior tibial pulse bilateral, Lungs: CTA bilateral, no rhonchi, no rales , no accessory muscle use Abdominal: soft, nontender to palpation, no guarding, no appreciable organomegaly Ext: no gross muscle atrophy, no edema, no contractures Neuro: speech clear, face symmetrical. GCS 15. Positive for resting tremors. Psych: Alert, oriented, appropriate affect Assessment and Plan of Care: Atypical Chest pain, acute coronary event ruled out -Chest x-ray negative for acute cardiopulmonary process. -Patient going down for a nuclear bone scan this morning. -EKG showing normal sinus rhythm at 77 bpm with a left bundle branch block, unchanged from previous EKGs. -Troponins negative <0.012 3 draws. -CTA chest was completed negative for acute pulmonary embolism, however osteoporotic changes were noted throughout the bony thorax suggestive of metastatic disease reported as being newly appearing when compared to CT of abdomen and pelvis on 02/12/2020. -Cardiology following, recommended increasing dose of ALVARADO inhibitor to optimize blood pressure control. -Oncology consulted for further metastatic workup. Elevated alkaline phosphatase -Alkaline phosphatase initially 1929 and repeat a.m. labs reveal 2041. -CTA chest was completed negative for acute pulmonary embolism, however osteoporotic changes were noted throughout the bony thorax suggestive of metastatic disease reported as being newly appearing when compared to CT of abdomen and pelvis on 02/12/2020. -Hematology/Oncology consulted, appreciate further recommendations Abnormal imaging suggestive of metastatic process -CTA chest was completed negative for acute pulmonary embolism, however osteoporotic changes were noted throughout the bony thorax suggestive of metastatic disease reported as being newly appearing when compared to CT of abdomen and pelvis on 02/12/2020. -CT abdomen and pelvis completed again showing findings suggestive for osteoblastic metastasis, prostamegaly, and colonic soft tissue thickening at the ileocecal region possibly representing clumped stool but unable to exclude a mucosal lesion/neoplasm. -Oncology following -Patient being taken down for bone scan later today. Parkinson's disease -Safe and supportive care. -Continue carbidopa/levodopa. -Fall precautions. Wiw-vrjrbfj-easfjgtfr diabetes mellitus type 2 -Hold Glucophage in place patient on glycemic protocol with NovoLog sliding scale. Hypertension -Monitor vital signs and continue daily medication management with amlodipine, isosorbide mononitrate, lisinopril, metoprolol. Cardiology evaluated and recommended increasing dose of lisinopril to optimize blood pressure control. Hyperlipidemia -Continue daily medication regimen with atorvastatin 80 mg nightly. CODE STATUS: Full code DVT prophylaxis: Lovenox Discussed with: patient, son, and RN Anticipated discharge date: Clinical course to determine Anticipated discharge place: Home with homecare versus SNF A total of 45 minutes was spent on the care of this complex patient more than 50% of the time was spent in counseling and care coordination. Objective - Vital Signs Vital signs: Vital Signs Temp 97.5 F L 07/06/21 07:10 Pulse 70 03/09/21 07:10 Resp 16 03/09/21 07:10 BP 160/65 03/09/21 07:10 Pulse Ox 100 03/09/21 07:10 Intake & Output 03/08/21 03/09/21 03/09/21 18:59 06:59 18:59 Intake Total 280 Output Total 200 200 Balance 80 -200 Intake: Oral 280 Output: Urine 200 200 Other: # Voids 2 2 1 # Bowel Movements 0 1 - Labs CBC & Chem 7: 03/08/21 04:50 03/08/21 04:50 Labs: Abnormal Lab Results - Last 24 Hours (Table) 03/08/21 03/08/21 03/08/21 Range/Units 04:50 11:49 20:54 POC Glucose (mg/dL) 158 H 126 H (75-99) mg/dL Free [place] LC, Quant 6.00 H (0.33-1.94) mg/dL Free [place] LC, Quant 3.16 H (0.57-2.63) mg/dL 03/09/21 Range/Units 07:11 POC Glucose (mg/dL) 135 H (75-99) mg/dL Free [place] LC, Quant (0.33-1.94) mg/dL Free [place]ambda LC, Quant (0.57-2.63) mg/dL
--- NOTE | 2021-03-09 11:31 | NM ---
EXAMINATION TYPE: NM bone scan whole body DATE OF EXAM: 03/09/2021 COMPARISON: CT 03/08/2021 and 03/07/2021 HISTORY: Blastic bone lesions Delayed whole-body scanning was performed following the injection of 21.68 mCi Tc 99m MDP. Images ac quired 3 hours post injection. FINDINGS: There are too numerous to count focal areas of increased radio pharmaceutical uptake throughout the s [place] to include the proximal humeri, femurs, pelvis, spine, ribs, sternum. Soft tissue uptake is m ildly decreased consistent with SuperScan. IMPRESSION: Widespread bony metastatic disease
[2021-03-09 12:12] LABS: Glucose,Whole Blood 148 mg/dL (75-99)
--- NOTE | 2021-03-09 13:49 | P.PN ---
Subjective This is a pleasant 85-year-old male with a past medical history of hypertension, hyperlipidemia, type 2 diabetes, Parkinson's, melanoma, coronary artery disease status post multivessel PCI, most recently patient had cardiac catheterization and PCI to the diagonal branch on 02/20/2021. He follows in the office with Dr. Barros. We are consulted for chest discomfort. CT chest revealed osteoplastic lesions suggestive of metastatic disease. Chest discomfort appears to be atypical for ischemic heart disease, probable musculoskeletal etiology most likely related to bilateral lesions related to possible osteoplastic changes. His blood pressure was elevated and his lisinopril was increased from 10mg BID to 20mg BID Cardiac catheterization history includes PCI to mid left circumflex in 04/2018 PCI to distal RCA in 05/2018 Most recently: Patient underwent Lexiscan stress test on 02/19/2021 which revealed an area of fixed defect suggestive of previous myocardial infarction involving the apex. A small area of stress-induced reversible ischemia in the adjacent region is not excluded. Echocardiogram on 02/19/2021 revealed EF of 50-55%, basal lateral and inferior LV wall is hypokinetic, mild mitral regurgitation, mild tricuspid regurgitation Patient underwent cardiac catheterization on 02/20/2021 he was found to have diffuse disease in the diagonal branch and obstructive disease in the PLV. He underwent stenting of that branch by Dr. Dominguez. He had patent stents in the distal RCA. 03/09/2021: Patient seen and examined at bedside. Sitting up at the bedside eating breakfast. He no longer has chest discomfort. Denies shortness of breath, nausea, abdominal pain, lightheadedness, dizziness. Blood pressure this morning before his medications 160/65, heart rate 70, afebrile, maintaining oxygen saturations 100% on room air. Laboratory data reviewed, no new labs from this morning. Patient currently maintained on amlodipine 5 mg twice a day, aspirin 81 mg daily, atorvastatin 80 mg nightly, Plavix 75 mg daily, Imdur 30 mg daily, lisinopril 20 mg twice a day, metoprolol titrate 25 mg 3 times a day. GENERAL: Well-appearing, well-nourished and in no acute distress. NECK: Supple without JVD or thyromegaly. LUNGS: Breath sounds clear to auscultation bilaterally. Respiration equal and unlabored. No wheezes, rales or rhonchi. HEART: Regular rate and rhythm without murmurs, rubs or gallops. S1 and S2 heard. EXTREMITIES: Normal range of motion, no edema. No clubbing or cyanosis. Peripheral pulses intact. ASSESSMENT Chest pain, appears to be atypical for ischemic heart disease. Probably musculoskeletal etiology most likely related to palpitations related to osteoplastic changes. Osteoplastic lesion suggestive of metastatic disease seen on computed tomography scan History of hypertension Coronary artery disease s/p multivessel PCI as noted above PLAN From a cardiology perspective we will continue current medical therapy. No further changes or cardiac workup at this time We will follow the patient on an as needed bases Patient to follow up with Dr. Barros Please reach out with any further questions or concerns. Nurse Practitioner note has been reviewed, I agree with a documented findings and plan of care. Patient was seen and examined. Objective - Vital Signs Vital signs: Vital Signs Temp 97.5 F L 03/09/21 07:10 Pulse 70 03/09/21 07:10 Resp 16 03/09/21 07:10 BP 160/65 03/09/21 07:10 Pulse Ox 100 03/09/21 07:10 Intake & Output 03/08/21 03/09/21 03/09/21 18:59 06:59 18:59 Intake Total 280 Output Total 200 200 Balance 80 -200 Intake: Oral 280 Output: Urine 200 200 Other: # Voids 2 2 1 # Bowel Movements 0 1 - Labs CBC & Chem 7: 03/08/21 04:50 03/08/21 04:50 Labs: Abnormal Lab Results - Last 24 Hours (Table) 03/08/21 03/08/21 03/09/21 Range/Units 04:50 20:54 07:11 POC Glucose (mg/dL) 126 H 135 H (75-99) mg/dL Free [place] LC, Quant 6.00 H (0.33-1.94) mg/dL Free [place] LC, Quant 3.16 H (0.57-2.63) mg/dL
--- NOTE | 2021-03-09 16:27 | P.PN ---
Subjective Progress Note Date: 03/09/21 Principal diagnosis: Bone mets In f/u pt has no new c/o to report. Chest pain is at sternum, fair pain control. Objective - Vital Signs Vital signs: Vital Signs Temp 97.9 F 03/09/21 15:00 Pulse 72 03/09/21 15:00 Resp 17 03/09/21 15:00 BP 138/60 03/09/21 15:00 Pulse Ox 98 03/09/21 15:00 Intake & Output 03/08/21 03/09/21 03/09/21 18:59 06:59 18:59 Intake Total 280 Output Total 200 200 Balance 80 -200 Intake: Oral 280 Output: Urine 200 200 Other: # Voids 2 2 1 # Bowel Movements 0 1 - Constitutional General appearance: Present: cooperative, no acute distress, thin - EENT Eyes: Present: anicteric sclerae, EOMI ENT: Present: hearing grossly normal, normal oropharynx - Respiratory Respiratory: bilateral: CTA - Cardiovascular Heart sounds: normal: S1, S2 - Peripheral edema leg Peripheral Edema: bilateral: Trace - Gastrointestinal General gastrointestinal: Present: normal bowel sounds, soft. Absent: absent bowel sounds, decreased bowel sounds, distended, hepatomegaly, hyperactive bowel sounds, organomegaly, rigid, scaphoid, splenomegaly, tenderness, umbilical hernia, ventral hernia - Neurologic Neurologic Comment(s): Parkinson's tremor noted - Musculoskeletal Musculoskeletal: Present: strength equal bilaterally - Psychiatric Psychiatric: Present: A&O x's 3, appropriate affect, intact judgment & insight - Labs CBC & Chem 7: 03/08/21 04:50 03/08/21 04:50 Labs: Abnormal Lab Results - Last 24 Hours (Table) 03/08/21 03/08/21 03/09/21 Range/Units 04:50 20:54 07:11 POC Glucose (mg/dL) 126 H 135 H (75-99) mg/dL Free [place] LC, Quant 6.00 H (0.33-1.94) mg/dL Free [place] LC, Quant 3.16 H (0.57-2.63) mg/dL 03/09/21 Range/Units 12:10 POC Glucose (mg/dL) 148 H (75-99) mg/dL Free [place] LC, Quant (0.33-1.94) mg/dL Free [place] LC, Quant (0.57-2.63) mg/dL - Imaging and Cardiology CT scan - abdomen: report reviewed CT scan - pelvis: report reviewed NM bone scan results review Assessment and Plan (1) Bone lesion Current Visit: Yes Status: Acute Priority: High Code(s): M89.9 - DISORDER OF BONE, UNSPECIFIED SNOMED Code(s): 332902392 (2) Elevated alkaline phosphatase level Current Visit: Yes Status: Acute Priority: High Code(s): R74.8 - ABNORMAL LEVELS OF OTHER SERUM ENZYMES SNOMED Code(s): 531028479 (3) Melanoma Current Visit: No Status: Chronic Priority: Medium Code(s): C43.9 - MALIGNANT MELANOMA OF SKIN, UNSPECIFIED SNOMED Code(s): 759703301 (4) Normocytic normochromic anemia Current Visit: Yes Status: Acute Priority: Medium Code(s): D64.9 - ANEMIA, UNSPECIFIED SNOMED Code(s): 89514442 (5) Thrombocytopenia Current Visit: Yes Status: Acute Priority: Medium Code(s): D69.6 - THROMBOCYTOPENIA, UNSPECIFIED SNOMED Code(s): 978867899 Plan: Patient presentation and acute changes in his health and lab values is concerning for underlying malignant process. Patient has a history of a melanoma about 4-5 years ago but, this also needs to be taken into consideration. Workup has been ordered for abnormal blood counts. CT of the abdomen and pelvis showing large prostate and colon thickening, nuclear medicine bone scan is positive for widespread osteoblastic lesions. PSA pending. Available info discussed with the patient and his son. Will recommend biopsy site after PSA results. attests I have seen and examined patient, performed H&P, developed impression and plan of care. Discussed with dictator. Agree with doc umentation. Documented as a scribe
[2021-03-09 17:06] LABS: Glucose,Whole Blood 125 mg/dL (75-99)
[2021-03-09] MEDS: ASPIRIN 81 MG PO SCH (17:18)
[2021-03-09 20:44] LABS: Glucose,Whole Blood 173 mg/dL (75-99)
[2021-03-09] MEDS: ATORVASTATIN 80 MG TAB PO SCH (20:57)
[2021-03-09] MEDS: DOCUSATE 100 MG CAP PO SCH (20:57)
[2021-03-10] MEDS: INSULIN ASPART (NovoLOG) 100 UNIT/ML VIAL SQ SCH ×4 (08:38→21:09)
[2021-03-10] MEDS: amLODIPine 5 MG TAB PO SCH ×2 (08:42→21:08)
[2021-03-10] MEDS: METOPROLOL TARTRATE 25 MG TAB PO SCH ×3 (08:42→21:09)
[2021-03-10] MEDS: ENOXAPARIN 40 MG/0.4 ML SYRINGE SQ SCH (08:42)
[2021-03-10] MEDS: DOCUSATE 100 MG CAP PO SCH (08:42)
[2021-03-10] MEDS: lisinopriL 20 MG TAB PO SCH ×2 (08:42→21:09)
[2021-03-10] MEDS: GABAPENTIN 100 MG CAP PO SCH ×3 (08:43→21:09)
[2021-03-10] MEDS: ISOSORBIDE MONONITRATE ER 30 MG TAB.ER.24H PO SCH (08:43)
[2021-03-10] MEDS: CARBIDOPA-LEVODOPA ER 25-100MG 1 EACH TABLET.ER PO SCH ×2 (08:43→21:09)
[2021-03-10] MEDS: CLOPIDOGREL 75 MG TAB PO SCH (08:43)
[2021-03-10 11:42] LABS: Albumin 3.23 g/dL (3.80-4.90)
[2021-03-10 11:51] LABS: Glucose,Whole Blood 125 mg/dL (75-99)
[2021-03-10] MEDS ORDERED: ACETAMINOPHEN TAB 325 MG TAB PO PRN (12:46)
[2021-03-10] MEDS ORDERED: HYDROcodone/APAP 5-325MG 1 EACH TAB PO PRN (12:46)
[2021-03-10] MEDS ORDERED: NITROGLYCERIN SL TABS 0.4 MG TAB SUBLINGUAL PRN (12:47)
[2021-03-10] MEDS ORDERED: NA PHOS,M-B/NA PHOS,DI-BA 133 ML ENEMA RECTAL PRN (12:47)
[2021-03-10] MEDS ORDERED: MAGNESIUM HYDROXIDE 2,400 MG/10 ML CUP PO PRN (12:47)
[2021-03-10] MEDS ORDERED: bisacodyL 10 MG SUPP RECTAL PRN (12:47)
--- NOTE | 2021-03-10 12:49 | P.PN ---
Subjective Progress Note Date: 03/10/21 No new copmlaints today. Ongoing chest pain. Pending PSA, then determination of bx of prostate vs colonoscopy for tissue diagnosis. Objective - Vital Signs Vital signs: Vital Signs Temp 97.4 F L 03/10/21 07:00 Pulse 77 03/10/21 07:00 Resp 18 03/10/21 07:00 BP 178/70 03/10/21 07:00 Pulse Ox 100 03/10/21 07:00 Intake & Output 03/09/21 03/10/21 03/10/21 18:59 06:59 18:59 Other: # Voids 3 7 # Bowel Movements 1 - Exam Gen: awake, alert HEENT: normocephalic, atraumatic, good hearing acuity, moist mucous membranes Resp: good air exchange, breathing comfortably with no accessory muscle use CVS: good distal perfusion x 4, GI: soft, NTTP, ND : no SPT, no CVAT, fitch catheter not present MSK: no pitting edema, no clubbing Neuro: non-focal, moving all extremities Psych: cooperative, euthymic mood - Labs CBC & Chem 7: 03/08/21 04:50 03/08/21 04:50 Labs: Abnormal Lab Results - Last 24 Hours (Table) 03/08/21 03/09/21 03/09/21 Range/Units 04:50 17:05 20:42 POC Glucose (mg/dL) 125 H 173 H (75-99) mg/dL Albumin (PEP) 3.23 L (3.80-4.90) g/dL Inntq-8-Ivjjzvkgs 0.47 H (0.10-0.40) g/dL Nkjse-4-Nqzrbbrrl 1.09 H (0.60-1.00) g/dL 03/10/21 Range/Units 11:50 POC Glucose (mg/dL) 125 H (75-99) mg/dL Albumin (PEP) (3.80-4.90) g/dL Yuibe-7-Rgnvtzopf (0.10-0.40) g/dL Soqvg-9-Qfvyydwce (0.60-1.00) g/dL Assessment and Plan Assessment: Chest Pain secondary to 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 -CT abdomen and pelvis completed again showing findings suggestive for osteoblastic metastasis, prostamegaly, and colonic soft tissue thickening at the ileocecal region possibly representing clumped stool but unable to exclude a mucosal lesion/neoplasm. -Nuclear bone scan 03/09 = bony mets to sternum, ribs, humeri, femurs, pelvis, and spine -EKG showing normal sinus rhythm at 77 bpm with a left bundle branch block, u nchanged from previous EKGs. -Troponins negative <0.012 3 draws. -Cardiology following, recommended increasing dose of ALVARADO inhibitor to optimize blood pressure control. -Oncology consulted for further metastatic workup. -Pain control with opiates, tylenol -Bowel regimen -PSA pending -Colonoscopy vs Prostate Bx for tissue diagnosis of primary malignancy. Parkinson's disease Qpz-okoeprt-lmtmbzjre diabetes mellitus type 2 Hypertension Hyperlipidemia -Safe and supportive care. -Fall precautions -Continue carbidopa/levodopa. -Hold Glucophage in place patient on glycemic protocol with NovoLog sliding scale. -Monitor vital signs and continue daily medication management with amlodipine, isosorbide mononitrate, lisinopril, metoprolol. Cardiology evaluated and recommended increasing dose of lisinopril to optimize blood pressure control. -Continue daily medication regimen with atorvastatin 80 mg nightly. CODE STATUS: Full code DVT prophylaxis: Lovenox Discussed with: patient, son, and RN Anticipated discharge date: Clinical course to determine Anticipated discharge place: Home with homecare versus SNF
[2021-03-10] MEDS: ASPIRIN 81 MG PO SCH (15:52)
[2021-03-10] MEDS ORDERED: NON FORMULARY DRUG (Glucerna Shake 1 CAN Liquid) PO SCH (17:00)
[2021-03-10 17:21] LABS: Glucose,Whole Blood 134 mg/dL (75-99)
--- NOTE | 2021-03-10 19:31 | P.PN ---
Subjective Progress Note Date: 03/10/21 Principal diagnosis: Bone mets In f/u pt has no new c/o to report. he is weak Objective - Vital Signs Vital signs: Vital Signs Temp 98.6 F 03/10/21 19:22 Pulse 82 03/10/21 19:22 Resp 18 03/10/21 19:22 BP 158/64 03/10/21 19:22 Pulse Ox 98 03/10/21 19:22 Intake & Output 03/10/21 03/10/21 03/11/21 06:59 18:59 06:59 Other: # Voids 7 1 # Bowel Movements 1 - Constitutional Constitutional Comment(s): frail General appearance: Present: cooperative, no acute distress, thin - EENT Eyes: Present: anicteric sclerae, EOMI ENT: Present: hearing grossly normal - Integumentary Integumentary: Present: pale - Neurologic Neurologic Comment(s): Parkinson's - Musculoskeletal Musculoskeletal: Present: generalized weakness - Psychiatric Psychiatric: Present: A&O x's 3, appropriate affect, intact judgment & insight - Labs CBC & Chem 7: 03/08/21 04:50 03/08/21 04:50 Labs: Abnormal Lab Results - Last 24 Hours (Table) 03/08/21 03/09/21 03/10/21 Range/Units 04:50 20:42 11:50 POC Glucose (mg/dL) 173 H 125 H (75-99) mg/dL Albumin (PEP) 3.23 L (3.80-4.90) g/dL Karqj-3-Espmezabo 0.47 H (0.10-0.40) g/dL Puptu-4-Rehpuohro 1.09 H (0.60-1.00) g/dL 03/10/21 Range/Units 17:20 POC Glucose (mg/dL) 134 H (75-99) mg/dL Albumin (PEP) (3.80-4.90) g/dL Uuyke-5-Xiiuqmsgl (0.10-0.40) g/dL Hznkf-5-Gffbevaez (0.60-1.00) g/dL Assessment and Plan (1) Bone lesion Current Visit: Yes Status: Acute Priority: High Code(s): M89.9 - DISORDER OF BONE, UNSPECIFIED SNOMED Code(s): 645694437 (2) Elevated alkaline phosphatase level Current Visit: Yes Status: Acute Priority: High Code(s): R74.8 - ABNORMAL LEVELS OF OTHER SERUM ENZYMES SNOMED Code(s): 300366970 (3) Melanoma Current Visit: No Status: Chronic Priority: Medium Code(s): C43.9 - MALIGNANT MELANOMA OF SKIN, UNSPECIFIED SNOMED Code(s): 249842543 (4) Normocytic normochromic anemia Current Visit: Yes Status: Acute Priority: Medium Code(s): D64.9 - ANEMIA, UNSPECIFIED SNOMED Code(s): 37022227 (5) Thrombocytopenia Current Visit: Yes Status: Acute Priority: Medium Code(s): D69.6 - THROMBOCYTOPENIA, UNSPECIFIED SNOMED Code(s): 477062911 Plan: So far no labs suggestive of a primary marrow malignancy. CT of the abdomen and pelvis showing large prostate and colon thickening, nuclear medicine bone scan is positive for widespread osteoblastic lesions. Pending PSA results, recommendations will be made for site of biopsy. If PSA is elevated prostate would be the choice for biopsy. If PSA is normal then, bone biopsy. Available info discussed with the patient and his son. attests I have seen and examined patient, performed H&P, developed impression and plan of care. Discussed with dictator. Agree with documentation. Documented as a scribe
[2021-03-10 20:07] LABS: Glucose,Whole Blood 178 mg/dL (75-99)
[2021-03-10] MEDS ORDERED: ATORVASTATIN 80 MG TAB PO SCH (21:00)
[2021-03-10] MEDS: SENNOSIDES-DOCUSATE SODIUM 1 EACH TAB PO SCH (21:09)
[2021-03-10] MEDS: ATORVASTATIN 80 MG TAB PO SCH (21:09)
[2021-03-11 01:38] LABS: Basophils # (A) 0.1 k/uL (0-0.2); Basophils % (A) 1 %; Eosinophils # (A) 0.2 k/uL (0-0.7); Eosinophils % (A) 2 %; HCT 27.5 % (39.0-53.0); HGB 9.6 gm/dL (13.0-17.5); Lymphocytes # (A) 1.5 k/uL (1.0-4.8); Lymphocytes % (A) 17 %; MCH 29.4 pg (25.0-35.0); MCHC 34.8 g/dL (31.0-37.0); MCV 84.5 fL (80.0-100.0); Mean Platelet Volume 7.9; Monocytes # (A) 0.7 k/uL (0-1.0); Monocytes % (A) 7 %; Neutrophils # (A) 6.8 k/uL (1.3-7.7); Neutrophils % (A) 72 %; Platelet Count 128 k/uL (150-450); RBC 3.25 m/uL (4.30-5.90); RDW 13.8 % (11.5-15.5); WBC 9.4 k/uL (3.8-10.6)
[2021-03-11 05:05] LABS: ALT 6 U/L (4-49); AST 81 U/L (17-59); African American GFR (CKD) >90 (>60 ml/min/1.73 sqM); Albumin 3.4 g/dL (3.5-5.0); Albumin/Globulin Ratio 1.2; Anion Gap 9 mmol/L; Blood Urea Nitrogen 22 mg/dL (9-20); Calcium 8.8 mg/dL (8.4-10.2); Carbon Dioxide 23 mmol/L (22-30); Chloride 102 mmol/L (98-107); Globulin 2.9 g/dL; Glucose 119 mg/dL (74-99); Non-African American GFR(CKD) 83 (>60 ml/min/1.73 sqM); Sodium 134 mmol/L (137-145); Total Bilirubin 0.8 mg/dL (0.2-1.3); Total Protein 6.3 g/dL (6.3-8.2)
[2021-03-11 05:16] LABS: Alkaline Phosphatase 1532 U/L (38-126)
[2021-03-11 07:08] LABS: Glucose,Whole Blood 149 mg/dL (75-99)
[2021-03-11] MEDS: INSULIN ASPART (NovoLOG) 100 UNIT/ML VIAL SQ SCH ×4 (07:39→21:01)
[2021-03-11] MEDS: ISOSORBIDE MONONITRATE ER 30 MG TAB.ER.24H PO SCH (08:40)
[2021-03-11] MEDS: lisinopriL 20 MG TAB PO SCH ×2 (08:40→20:52)
[2021-03-11] MEDS: SENNOSIDES-DOCUSATE SODIUM 1 EACH TAB PO SCH ×2 (08:40→20:52)
[2021-03-11] MEDS: amLODIPine 5 MG TAB PO SCH ×2 (08:40→20:52)
[2021-03-11] MEDS: CLOPIDOGREL 75 MG TAB PO SCH ×2 (08:40→08:55)
[2021-03-11] MEDS: ENOXAPARIN 40 MG/0.4 ML SYRINGE SQ SCH (08:40)
[2021-03-11] MEDS: CARBIDOPA-LEVODOPA ER 25-100MG 1 EACH TABLET.ER PO SCH ×2 (08:40→20:52)
[2021-03-11] MEDS: GABAPENTIN 100 MG CAP PO SCH ×3 (08:40→20:52)
[2021-03-11] MEDS: METOPROLOL TARTRATE 25 MG TAB PO SCH ×3 (08:40→20:52)
[2021-03-11] MEDS ORDERED: polyethylene glycoL 3350 17 GM POWD.PACK PO SCH ×2 (09:00→21:00)
[2021-03-11 11:36] LABS: Glucose,Whole Blood 158 mg/dL (75-99)
--- NOTE | 2021-03-11 12:02 | P.PN ---
Subjective Progress Note Date: 03/11/21 Pts PSA is very high > 150. Urology consulted for bx of prostate. Objective - Vital Signs Vital signs: Vital Signs Temp 98.3 F 03/11/21 07:00 Pulse 77 03/11/21 07:00 Resp 17 03/11/21 07:00 BP 177/79 03/11/21 07:00 Pulse Ox 99 03/11/21 07:00 Intake & Output 03/10/21 03/11/21 03/11/21 18:59 06:59 18:59 Intake Total 237 Balance 237 Intake: Oral 237 Other: Voiding Method Toilet Toilet Diaper Diaper # Voids 1 6 2 - Exam Gen: awake, alert HEENT: normocephalic, atraumatic, good hearing acuity, moist mucous membranes Resp: good air exchange, breathing comfortably with no accessory muscle use CVS: good distal perfusion x 4, GI: soft, NTTP, ND : no SPT, no CVAT, fitch catheter not present MSK: no pitting edema, no clubbing Neuro: non-focal, moving all extremities Psych: cooperative, euthymic mood - Labs CBC & Chem 7: 03/11/21 01:23 03/11/21 04:19 Labs: Abnormal Lab Results - Last 24 Hours (Table) 03/08/21 03/10/21 03/10/21 Range/Units 04:50 17:20 20:05 RBC (4.30-5.90) m/uL Hgb (13.0-17.5) gm/dL Hct (39.0-53.0) % Plt Count (150-450) k/uL Sodium (137-145) mmol/L BUN (9-20) mg/dL Glucose (74-99) mg/dL POC Glucose (mg/dL) 134 H 178 H (75-99) mg/dL AST (17-59) U/L Alkaline Phosphatase (38-126) U/L Albumin (3.5-5.0) g/dL Total PSA >150.0 H (<=4.0) ng/mL 03/11/21 03/11/21 03/11/21 Range/Units 01:23 04:19 07:07 RBC 3.25 L (4.30-5.90) m/uL Hgb 9.6 L (13.0-17.5) gm/dL Hct 27.5 L (39.0-53.0) % Plt Count 128 L (150-450) k/uL Sodium 134 L (137-145) mmol/L BUN 22 H (9-20) mg/dL Glucose 119 H (74-99) mg/dL POC Glucose (mg/dL) 149 H (75-99) mg/dL AST 81 H (17-59) U/L Alkaline Phosphatase 1532 H (38-126) U/L Albumin 3.4 L (3.5-5.0) g/dL Total PSA (<=4.0) ng/mL 03/11/21 Range/Units 11:34 RBC (4.30-5.90) m/uL Hgb (13.0-17.5) gm/dL Hct (39.0-53.0) % Plt Count (150-450) k/uL Sodium (137-145) mmol/L BUN (9-20) mg/dL Glucose (74-99) mg/dL POC Glucose (mg/dL) 158 H (75-99) mg/dL AST (17-59) U/L Alkaline Phosphatase (38-126) U/L Albumin (3.5-5.0) g/dL Total PSA (<=4.0) ng/mL Assessment and Plan Assessment: Chest Pain secondary to 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 -CT abdomen and pelvis completed again showing findings suggestive for osteoblastic metastasis, prostamegaly, and colonic soft tissue thickening at the ileocecal region possibly representing clumped stool but unable to exclude a mucosal lesion/neoplasm. -Nuclear bone scan 03/09 = bony mets to sternum, ribs, humeri, femurs, pelvis, and spine -EKG showing normal sinus rhythm at 77 bpm with a left bundle branch block, unch anged from previous EKGs. -Troponins negative <0.012 3 draws. -Cardiology following, recommended increasing dose of ALVARADO inhibitor to optimize blood pressure control. -Oncology consulted for further metastatic workup. -Pain control with opiates, tylenol -Bowel regimen -PSA > 150 -Prostate Bx for tissue diagnosis of primary malignancy. -Urology consult, pending Parkinson's disease Tih-gvbtrqq-nzdinkmmc diabetes mellitus type 2 Hypertension Hyperlipidemia -Safe and supportive care. -Fall precautions -Continue carbidopa/levodopa. -Hold Glucophage in place patient on glycemic protocol with NovoLog sliding scale. -Monitor vital signs and continue daily medication management with amlodipine, isosorbide mononitrate, lisinopril, metoprolol. Cardiology evaluated and recommended increasing dose of lisinopril to optimize blood pressure control. -Continue daily medication regimen with atorvastatin 80 mg nightly. CODE STATUS: Full code DVT prophylaxis: Lovenox Discussed with: patient, son, and RN Anticipated discharge date: Clinical course to determine Anticipated discharge place: Home with homecare versus SNF
[2021-03-11 17:03] LABS: Glucose,Whole Blood 151 mg/dL (75-99)
[2021-03-11] MEDS: ASPIRIN 81 MG PO SCH (18:30)
[2021-03-11] MEDS: ATORVASTATIN 80 MG TAB PO SCH (20:52)
[2021-03-11 20:53] LABS: Glucose,Whole Blood 173 mg/dL (75-99)
--- NOTE | 2021-03-12 01:41 | P.PN ---
Subjective Progress Note Date: 03/11/21 patient continues to have significant generalized weakness. He denies any change in pain issues. No history of fevers/chills/nausea/vomiting Objective - Vital Signs Vital signs: Vital Signs Temp 98.4 F 03/11/21 20:00 Pulse 67 03/11/21 20:00 Resp 18 03/11/21 20:00 BP 147/67 03/11/21 20:00 Pulse Ox 94 L 03/11/21 20:00 Intake & Output 03/11/21 03/11/21 03/12/21 06:59 18:59 06:59 Intake Total 474 Balance 474 Intake: Oral 474 Other: Voiding Method Toilet Toilet Toilet Diaper Diaper Diaper # Voids 6 2 1 - Constitutional General appearance: Present: no acute distress - EENT Eyes: Present: EOMI ENT: Present: hearing grossly normal, normal oropharynx - Respiratory Respiratory: bilateral: CTA - Cardiovascular Rhythm: regular Heart sounds: normal: S1, S2 - Gastrointestinal General gastrointestinal: Present: normal bowel sounds, soft - Integumentary Integumentary: Present: normal - Neurologic Neurologic: Present: CNII-XII intact - Musculoskeletal Musculoskeletal: Present: generalized weakness, strength equal bilaterally - Psychiatric Psychiatric: Present: A&O x's 3, appropriate affect - Labs CBC & Chem 7: 03/11/21 01:23 03/11/21 04:19 Labs: Abnormal Lab Results - Last 24 Hours (Table) 03/11/21 03/11/21 03/11/21 Range/Units 01:23 04:19 07:07 RBC 3.25 L (4.30-5.90) m/uL Hgb 9.6 L (13.0-17.5) gm/dL Hct 27.5 L (39.0-53.0) % Plt Count 128 L (150-450) k/uL Sodium 134 L (137-145) mmol/L BUN 22 H (9-20) mg/dL Glucose 119 H (74-99) mg/dL POC Glucose (mg/dL) 149 H (75-99) mg/dL AST 81 H (17-59) U/L Alkaline Phosphatase 1532 H (38-126) U/L Albumin 3.4 L (3.5-5.0) g/dL 0703/11/21 03/11/21 Range/Units 11:34 17:01 20:52 RBC (4.30-5.90) m/uL Hgb (13.0-17.5) gm/dL Hct (39.0-53.0) % Plt Count (150-450) k/uL Sodium (137-145) mmol/L BUN (9-20) mg/dL Glucose (74-99) mg/dL POC Glucose (mg/dL) 158 H 151 H 173 H (75-99) mg/dL AST (17-59) U/L Alkaline Phosphatase (38-126) U/L Albumin (3.5-5.0) g/dL Assessment and Plan (1) Bone lesion Narrative/Plan: patient's bone scan has showed widespread metastatic disease. PSA was finally resulted today, showing level of greater than 150. This essentially indicates that the patient has metastatic prostate cancer. -The implications were discussed in detail with the patient. Advised that metastatic prostate cancer would generally be considered very treatable in the first line. In addition standard treatment regimen of GnRH agonist with or without additional androgen blockade would typically be well tolerated. - The patient will however need confirmation with a pathologic diagnosis prior to starting treatment. Urology will therefore be consulted for a prostate biopsy. - when widespread bony metastatic disease, IV bisphosphonate or DEnosumab will also be a part of his treatment regimen Current Visit: Yes Status: Acute Priority: High Code(s): M89.9 - DISORDER OF BONE, UNSPECIFIED SNOMED Code(s): 370839307
[2021-03-12 06:59] LABS: Glucose,Whole Blood 150 mg/dL (75-99)
[2021-03-12 07:34] VITALS: RESP 17
[2021-03-12] MEDS: INSULIN ASPART (NovoLOG) 100 UNIT/ML VIAL SQ SCH ×2 (08:38→12:19)
[2021-03-12] MEDS: lisinopriL 20 MG TAB PO SCH (09:00)
[2021-03-12] MEDS: GABAPENTIN 100 MG CAP PO SCH (09:00)
[2021-03-12] MEDS: SENNOSIDES-DOCUSATE SODIUM 1 EACH TAB PO SCH (09:00)
[2021-03-12] MEDS: CARBIDOPA-LEVODOPA ER 25-100MG 1 EACH TABLET.ER PO SCH (09:00)
[2021-03-12] MEDS: amLODIPine 5 MG TAB PO SCH (09:00)
[2021-03-12] MEDS: CLOPIDOGREL 75 MG TAB PO SCH ×2 (09:01)
[2021-03-12] MEDS: ISOSORBIDE MONONITRATE ER 30 MG TAB.ER.24H PO SCH (09:01)
[2021-03-12] MEDS: METOPROLOL TARTRATE 25 MG TAB PO SCH (09:02)
[2021-03-12] MEDS: ENOXAPARIN 40 MG/0.4 ML SYRINGE SQ SCH (09:02)
[2021-03-12 11:44] LABS: Glucose,Whole Blood 235 mg/dL (75-99)
--- NOTE | 2021-03-12 14:28 | P.PN ---
Subjective Progress Note Date: 03/12/21 Pt has many questions regarding when/if its possible to do a biopsy of the prostate given that patient is on DAPT from recent cardiac stent and urology understandably has concerns about doing biopsy while on DAPT. Objective - Vital Signs Vital signs: Vital Signs Temp 98.3 F 03/12/21 07:00 Pulse 69 03/12/21 07:00 Resp 17 03/12/21 07:00 BP 157/63 03/12/21 07:00 Pulse Ox 99 03/12/21 07:00 Intake & Output 03/11/21 03/12/21 03/12/21 18:59 06:59 18:59 Intake Total 474 Balance 474 Intake: Oral 474 Other: Voiding Method Toilet Toilet Toilet Diaper Diaper Diaper # Voids 2 6 # Bowel Movements 1 - Exam Gen: awake, alert HEENT: normocephalic, atraumatic, good hearing acuity, moist mucous membranes Resp: good air exchange, breathing comfortably with no accessory muscle use CVS: good distal perfusion x 4, GI: soft, NTTP, ND : no SPT, no CVAT, fitch catheter not present MSK: no pitting edema, no clubbing Neuro: non-focal, moving all extremities Psych: cooperative, euthymic mood - Labs CBC & Chem 7: 03/11/21 01:23 03/11/21 04:19 Labs: Abnormal Lab Results - Last 24 Hours (Table) 03/11/21 03/11/21 03/12/21 Range/Units 17:01 20:52 06:57 POC Glucose (mg/dL) 151 H 173 H 150 H (75-99) mg/dL 03/12/21 Range/Units 11:43 POC Glucose (mg/dL) 235 H (75-99) mg/dL Assessment and Plan Assessment: Chest Pain secondary to 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 -CT abdomen and pelvis completed again showing findings suggestive for osteoblastic metastasis, prostamegaly, and colonic soft tissue thickening at the ileocecal region possibly representing clumped stool but unable to exclude a mucosal lesion/neoplasm. -Nuclear bone scan 03/09 = bony mets to sternum, ribs, humeri, femurs, pelvis, and spine -EKG showing normal sinus rhythm at 77 bpm with a left bundle branch block, unchanged from previous EKGs. -Troponins negative <0.012 3 draws. -Cardiology following, recommended increasing dose of ALVARADO inhibitor to optimize blood pressure control. -Oncology consulted for further metastatic workup. -Pain control with opiates, tylenol -Bowel regimen -PSA > 150 -Prostate Bx for tissue diagnosis of primary malignancy. -Urology consult, pending Parkinson's disease Qwq-xivgdjv-zvmckgqnw diabetes mellitus type 2 Hypertension Hyperlipidemia -Safe and supportive care. -Fall precautions -Continue carbidopa/levodopa. -Hold Glucophage in place patient on glycemic protocol with NovoLog sliding scale. -Monitor vital signs and continue daily medication management with amlodipine, isosorbide mononitrate, lisinopril, metoprolol. Cardiology evaluated and recommended increasing dose of lisinopril to optimize blood pressure control. -Continue daily medication regimen with atorvastatin 80 mg nightly. CODE STATUS: Full code DVT prophylaxis: Lovenox Discussed with: patient, son, and RN Anticipated discharge date: Clinical course to determine Anticipated discharge place: Home with homecare versus SNF
--- NOTE | 2021-03-12 14:45 | P.GSCN ---
History of Present Illness Consult date: 03/12/21 Reason for Consult: Elevated PSA History of present illness: This is an 85-year-old male who presented to the hospital with chest pain, but he underwent a recent cardiac stent by Dr. Dominguez. Evaluation also showed elevated alk phos, he subsequently underwent a bone scan which showed widespread osteoblastic metastatic disease. His PSA was checked and was greater than 150. Urology is consulted given the concern of prostate cancer, given his elevation in PSA. No known family history of prostate cancer. Denies any voiding issues, denies any gross hematuria. Review of Systems - Constitutional Reports weakness - Cardiovascular Reports chest pain, Denies shortness of breath - Respiratory Denies cough, Denies 7 - Gastrointestinal Reports as per HPI - Genitourinary Denies dysuria, Denies hematuria - Integumentary Denies rash, Denies unusual bruising - Neurological Denies headaches, Denies syncope - Hematologic/Lymphatic Denies easy bleeding, Denies easy bruising Past Medical History Past Medical History: Coronary Artery Disease (CAD), Cancer, Diabetes Mellitus, Hypertension, Neurologic Disorder Additional Past Medical History / Comment(s): Hx skin Cancer on L arm, parkinson's. Had nasal packing r/t nose bleeds within the last week. February 04, 2021 History of Any Multi-Drug Resistant Organisms: None Reported Past Surgical History: Back Surgery, Heart Catheterization With Stent Additional Past Surgical History / Comment(s): Skin CA removed from L arm; Col onoscopy x2 Past Anesthesia/Blood Transfusion Reactions: No Reported Reaction Date of Last Stent Placement:: 04/12/18 Past Psychological History: No Psychological Hx Reported Smoking Status: Never smoker Past Alcohol Use History: None Reported Past Drug Use History: None Reported - Past Family History Mother Family Medical History: No Reported History Additional Family Medical History / Comment(s): mother alive ; 100 on 05/09/18 Medications and Allergies Home Medications Medication Instructions Recorded Confirmed Type Metoprolol Tartrate [Lopressor] 25 mg PO TID@0800,1200,1700 06/06/20 03/07/21 History Nitroglycerin Sl Tabs [Nitrostat] 0.4 mg SUBLINGUAL Q5M PRN 06/06/20 03/07/21 History amLODIPine BESYLATE/BENAZEPRIL 1 cap PO BID@0800,1700 06/06/20 03/07/21 History [amLODIPine BESYLATE/BENAZEPRIL 5-10 MG] sitaGLIPtin PHOS/metFORMIN HCL 1 tab PO DAILY@0800 02/18/21 03/07/21 History [Janumet 50-500 mg Tablet] Carbidopa-Levodopa ER 25-100Mg 1 tab PO BID@0800,1700 02/20/21 03/07/21 History [Sinemet CR 25-100 mg] Aspirin EC [Ecotrin Low Dose] 81 mg PO DAILY@1700 03/07/21 03/07/21 History Atorvastatin Calcium [Lipitor] 80 mg PO HS@2100 03/07/21 03/07/21 History Clopidogrel Bisulfate [Plavix] 75 mg PO DAILY@0800 03/07/21 03/07/21 History Glucerna Shake 237 ml PO TID@0800,1200,1700 03/07/21 03/07/21 History Isosorbide Mononitrate ER [Imdur] 30 mg PO DAILY@0800 03/07/21 03/07/21 History Magnesium Hydroxide [Milk of 7,200 mg PO DAILY PRN 03/07/21 03/07/21 History Magnesia Concentrate] Na Phos,M-B/Na Phos,Di-Ba [Fleet 133 ml RECTAL DAILY PRN 03/07/21 03/07/21 History Adult] bisacodyL [Dulcolax] 10 mg RECTAL DAILY PRN 03/07/21 03/07/21 History Bicalutamide [Casodex] 150 mg PO DAILY 30 Days tablet 03/12/21 Rx Gabapentin [Neurontin] 100 mg PO TID@0600,1400,2200 #9 cap 03/12/21 Rx HYDROcodone/APAP 5-325MG [[place] 1 each PO Q4HR PRN #18 tab 03/12/21 Rx 5-325] Sennosides-Docusate Sodium 1 each PO BID tab 03/12/21 Rx [Senokot-S] polyethylene glycoL 3350 [Miralax] 17 gm PO HS powd.pack 03/12/21 Rx Allergies Allergy/AdvReac Type Severity Reaction Status Date / Time No Known Allergies Allergy Verified 03/07/21 19:22 Surgical - Exam Vital Signs Temp Pulse Resp BP Pulse Ox 98.3 F 78 16 170/89 98 03/07/21 15:30 03/07/21 15:30 03/07/21 15:30 03/07/21 15:30 03/07/21 15:30 - General no distress, no pain - Eyes PERRL, normal ocular movement - ENT normal nares, normal mucosa - Respiratory normal expansion, normal respiratory effort - Abdomen Abdomen: soft, non tender - Genitourinary VINICIO demonstrated a hard nodule along the left side of the prostate - Musculoskeletal other (unsteady gait) - Psychiatric oriented to time, oriented to person, oriented to place, speech is normal Results - Labs 03/11/21 01:23 03/11/21 04:19 Abnormal Lab Results - Last 24 Hours (Table) 03/11/21 03/11/21 03/12/21 Range/Units 17:01 20:52 06:57 POC Glucose (mg/dL) 151 H 173 H 150 H (75-99) mg/dL 03/12/21 Range/Units 11:43 POC Glucose (mg/dL) 235 H (75-99) mg/dL Assessment and Plan Assessment: This is an 85-year-old male with history of elevated PSA greater than 150, bone scan consistent with widespread metastatic disease. Of note he had a recent cardiac stent, currently on Plavix. I discussed with the patient and his son that we will need tissue diagnosis to confirm the finding of prostate cancer. Discussed the alternative was to get an MRI of the prostate, and if there is evidence of piRad 5 lesions then this is highly consistent with prostate cancer, but unfortunately his insurance will not cover ADT without tissue diagnosis. At this time I discussed the need to do a prostate biopsy, discussed he will need to continue the Plavix given the recent cardiac stents. Discussed his a very high risk of bleeding complications given the Plavix use. Discussed will do a limited biopsy and only obtained 2 cores, and if that confirms the finding of prostate cancer and then no further biopsies is needed and we can start ADT. Discussed with him in the meantime we can start him on Casodex, he can be discharged from urology standpoint. discussed given the evidence of widespread metastatic disease, local therapy has no benefit. More than 45 minutes was spent with the patient and his son discussing all these findings. -This time he's okay for discharge from urology standpoint he is scheduled for a prostate biopsy in the office on March 25, we will start him on Casodex 150 mg in the meantime, until he can be started on Lupron
[2021-03-12 14:50] VITALS: BP 122/61; PULSE 65; TEMP 97.9
--- NOTE | 2021-03-12 15:54 | P.DS ---
Providers Date of admission: 03/08/21 15:26 Expected date of discharge: 03/12/21 Attending physician: Veronica Dorantes DO Consults: 03/08/21 08:11 Consult Physician Routine Consulting Provider: Marcelino Lee Consult Reason/Comments: metastatic work up Do you want consulting provider notified?: Yes 03/08/21 08:15 Consult Physician Routine Consulting Provider: Devin Pierson Consult Reason/Comments: chest pain, likely metastatic lesions but had recent stent to RCA 02/20/21 Do you want consulting provider notified?: Yes 03/11/21 09:22 Consult Physician Routine Consulting Provider: Silvestre Fields Consult Reason/Comments: elevated PSA, bone mets. 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 However, CT scan of the chest demonstrated metastatic disease with blastic lesions in the ribs b/l and sternum. CT A/P demonstrated prostatomegaly, and colonic soft tissue thickening. Onc was consulted and recommended nuclear bone scan and PSA. Bone scan demonstrated blastic lesions in the humeri, sternum, ribs, femurs, pelvis, and spine. PSA returned positive > 150. Urology was consulted and recommended initiation of bicalutamide as well as prostate biopsy as an outpatient which was scheduled for 03/25. Patient was subsequently discharged to [facility] rehab with follow up arranged with Urology and Oncology. Patients pain was treated with tylenol PRN and norco PRN. These were prescribed on discharge with bowel regimen as well. Parkinson's disease Jiz-depmanj-zulsluvkg diabetes mellitus type 2 Hypertension Hyperlipidemia No changes to existing home medications. Addition of Casodex, miralax, senokot, and norco. I spent 48 minutes coordinating this complex discharge. Assessment: Gen: awake, alert HEENT: normocephalic, atraumatic, good hearing acuity, moist mucous membranes Resp: good air exchange, breathing comfortably with no accessory muscle use CVS: good distal perfusion x 4, GI: soft, NTTP, ND : no SPT, no CVAT, fitch catheter not present MSK: no pitting edema, no clubbing Neuro: non-focal, moving all extremities Psych: cooperative, euthymic mood Patient Condition at Discharge: Good Plan - Discharge Summary New Discharge Prescriptions: New HYDROcodone/APAP 5-325MG [[place] 5-325] 1 each PO Q4HR PRN #18 tab PRN Reason: Pain Bicalutamide [Casodex] 150 mg PO DAILY 30 Days tablet polyethylene glycoL 3350 [Miralax] 17 gm PO HS powd.pack Sennosides-Docusate Sodium [Senokot-S] 1 each PO BID tab Continue Nitroglycerin Sl Tabs [Nitrostat] 0.4 mg SUBLINGUAL Q5M PRN PRN Reason: Chest Pain amLODIPine BESYLATE/BENAZEPRIL [amLODIPine BESYLATE/BENAZEPRIL 5-10 MG] 1 cap PO BID@0800,1700 Metoprolol Tartrate [Lopressor] 25 mg PO TID@0800,1200,1700 sitaGLIPtin PHOS/metFORMIN HCL [Janumet 50-500 mg Tablet] 1 tab PO DAILY@0800 Carbidopa-Levodopa ER 25-100Mg [Sinemet CR 25-100 mg] 1 tab PO BID@0800,1700 bisacodyL [Dulcolax] 10 mg RECTAL DAILY PRN PRN Reason: Constipation Clopidogrel Bisulfate [Plavix] 75 mg PO DAILY@0800 Isosorbide Mononitrate ER [Imdur] 30 mg PO DAILY@0800 Atorvastatin Calcium [Lipitor] 80 mg PO HS@2100 Na Phos,M-B/Na Phos,Di-Ba [Fleet Adult] 133 ml RECTAL DAILY PRN PRN Reason: Constipation Magnesium Hydroxide [Milk of Magnesia Concentrate] 7,200 mg PO DAILY PRN PRN Reason: Constipation Glucerna Shake 237 ml PO TID@0800,1200,1700 Aspirin EC [Ecotrin Low Dose] 81 mg PO DAILY@1700 Gabapentin [Neurontin] 100 mg PO TID@0600,1400,2200 #9 cap Discharge Medication List Metoprolol Tartrate [Lopressor] 25 mg PO TID@0800,1200,1700 06/06/20 [History] Nitroglycerin Sl Tabs [Nitrostat] 0.4 mg SUBLINGUAL Q5M PRN 06/06/20 [History] amLODIPine BESYLATE/BENAZEPRIL [amLODIPine BESYLATE/BENAZEPRIL 5-10 MG] 1 cap PO BID@0800,1700 06/06/20 [History] sitaGLIPtin PHOS/metFORMIN HCL [Janumet 50-500 mg Tablet] 1 tab PO DAILY@0800 02/18/21 [History] Carbidopa-Levodopa ER 25-100Mg [Sinemet CR 25-100 mg] 1 tab PO BID@0800,1700 02/20/21 [History] Aspirin EC [Ecotrin Low Dose] 81 mg PO DAILY@1700 03/07/21 [History] Atorvastatin Calcium [Lipitor] 80 mg PO HS@2100 03/07/21 [History] Clopidogrel Bisulfate [Plavix] 75 mg PO DAILY@0803/07/21 [History] Glucerna Shake 237 ml PO TID@0800,1200,1700 03/07/21 [History] Isosorbide Mononitrate ER [Imdur] 30 mg PO DAILY@0800 03/07/21 [History] Magnesium Hydroxide [Milk of Magnesia Concentrate] 7,200 mg PO DAILY PRN 03/07/21 [History] Na Phos,M-B/Na Phos,Di-Ba [Fleet Adult] 133 ml RECTAL DAILY PRN 03/07/21 [History] bisacodyL [Dulcolax] 10 mg RECTAL DAILY PRN 03/07/21 [History] Bicalutamide [Casodex] 150 mg PO DAILY 30 Days tablet 03/12/21 [Rx] Gabapentin [Neurontin] 100 mg PO TID@0600,1400,2200 #9 cap 03/12/21 [Rx] HYDROcodone/APAP 5-325MG [[place] 5-325] 1 each PO Q4HR PRN #18 tab 03/12/21 [Rx] Sennosides-Docusate Sodium [Senokot-S] 1 each PO BID tab 03/12/21 [Rx] polyethylene glycoL 3350 [Miralax] 17 gm PO HS powd.pack 03/12/21 [Rx] Follow up Appointment(s)/Referral(s): Master Ochoa MD [Primary Care Provider] - 1-2 days Karolyn Barros MD [STAFF PHYSICIAN] - 2 Weeks Discharge Disposition: TRANSFER TO SNF/ECF
--- NOTE | 2021-03-12 16:37 | P.PN ---
Subjective Progress Note Date: 03/12/21 She still has some generalized weakness but reports no new complaints. He was/chills/nausea/vomiting. His sister was at the bedside, and provided some history as well as participated in the discussion, with the patient's permission Objective - Vital Signs Vital signs: Vital Signs Temp 97.9 F 03/12/21 14:49 Pulse 65 03/12/21 14:49 Resp 17 03/12/21 14:49 BP 122/61 03/12/21 14:49 Pulse Ox 99 03/12/21 14:49 Intake & Output 03/11/21 03/12/21 03/12/21 18:59 06:59 18:59 Intake Total 474 Balance 474 Intake: Oral 474 Other: Voiding Method Toilet Toilet Toilet Diaper Diaper Diaper # Voids 2 6 5 # Bowel Movements 1 - Constitutional General appearance: Present: no acute distress - EENT Eyes: Present: EOMI ENT: Present: hearing grossly normal, normal oropharynx - Respiratory Respiratory: bilateral: CTA - Cardiovascular Rhythm: regular Heart sounds: normal: S1, S2 - Gastrointestinal General gastrointestinal: Present: normal bowel sounds, soft - Integumentary Integumentary: Present: normal - Musculoskeletal Musculoskeletal: Present: generalized weakness, strength equal bilaterally - Psychiatric Psychiatric: Present: A&O x's 3, appropriate affect - Labs CBC & Chem 7: 03/11/21 01:23 03/11/21 04:19 Labs: Abnormal Lab Results - Last 24 Hours (Table) 03/11/21 03/11/21 03/12/21 Range/Units 17:01 20:52 06:57 POC Glucose (mg/dL) 151 H 173 H 150 H (75-99) mg/dL 03/12/21 Range/Units 11:43 POC Glucose (mg/dL) 235 H (75-99) mg/dL Assessment and Plan (1) Prostate cancer metastatic to bone Narrative/Plan: It was discussed again with the patient and his sister, that the clinical picture is highly compatible with metastatic prostate cancer with extensive bone involvement. We also discussed standard treatment options according to guidelines. They were advised that typically this would involve a DVT, plus additional androgen blockade. This treatment is generally well-tolerated, and can often provide disease control for prolonged periods of time. - Typically to start a DVT, most insurances will require a pathologic diagnosis. Urology was consulted and has evaluated the patient. The plan is to do a limited biopsy in about 2 weeks. Biopsy plan is completed by the patient being on antiplatelet therapy for recently placed cardiac stents. - The patient and his family were advised that with the limited biopsy, the risk of any significant bleeding would be significantly reduced. In the unlikely event that any significant bleeding occurred, the patient can be managed with platelet transfusions as well as medication such as Sandostatin or DDAVP - Patient has been started on Casodex by urology. Agree with same. As discussed in detail with the admitting service. The patient can continue follow-up for treatment with urology. He can be referred to us if and when he becomes castrate resistant Current Visit: Yes Status: Acute Code(s): C61 - MALIGNANT NEOPLASM OF PROSTATE; C79.51 - SECONDARY MALIGNANT NEOPLASM OF BONE SNOMED Code(s): 943653185
[2021-03-13] MEDS ORDERED: BICALUTAMIDE 50 MG TAB PO SCH (09:00)
== END 2021-03-12 17:13 | DRG 544 ==
LOC: EC 15:22 → 6NMEDSUR 18:43 → OBSVTOIN 03-08 15:26 → 6NMEDSUR 03-11 21:49
PROVIDERS: ADMIT Internal Medicine; ATTEND Internal Medicine
DX: C79.51 Secondary malignant neoplasm of bone (principal); C43.62 Malignant melanoma of left upper limb, including shoulder; G89.3 Neoplasm related pain (acute) (chronic); I25.10 Atherosclerotic heart disease of native coronary artery without angina pectoris; G20 Parkinson's disease; E11.9 Type 2 diabetes mellitus without complications; D69.6 Thrombocytopenia, unspecified; R74.8 Abnormal levels of other serum enzymes; D64.9 Anemia, unspecified; I44.7 Left bundle-branch block, unspecified; I10 Essential (primary) hypertension; E78.5 Hyperlipidemia, unspecified; C61 Malignant neoplasm of prostate; Z95.5 Presence of coronary angioplasty implant and graft; Z79.899 Other long term (current) drug therapy; Z79.82 Long term (current) use of aspirin; Z79.02 Long term (current) use of antithrombotics/antiplatelets; Z79.84 Long term (current) use of oral hypoglycemic drugs; I25.2 Old myocardial infarction; R79.89 Other specified abnormal findings of blood chemistry; Z85.820 Personal history of malignant melanoma of skin
CPT/HCPCS: 36415; 71046; 71275; 74177; 78306; 80053; 82784; 83735; 83880; 83883; 84153; 84165; 84484; 85025; 85379; 85610; 85730; 86334; 87635; 93005; 99285

== ENCOUNTER 2021-11-18 03:23 | Emergency (ER) | payer MEDICARE, BC ==
[2021-11-18 04:15] LABS: Basophils % (A) 0 %; Eosinophils # (A) 0.1 k/uL (0-0.7); Eosinophils % (A) 2 %; HCT 25.3 % (39.0-53.0); HGB 8.6 gm/dL (13.0-17.5); Lymphocytes # (A) 1.7 k/uL (1.0-4.8); Lymphocytes % (A) 28 %; MCH 30.8 pg (25.0-35.0); MCHC 33.9 g/dL (31.0-37.0); MCV 90.9 fL (80.0-100.0); Mean Platelet Volume 8.1; Monocytes # (A) 0.3 k/uL (0-1.0); Monocytes % (A) 5 %; Neutrophils # (A) 3.9 k/uL (1.3-7.7); Neutrophils % (A) 64 %; Platelet Count 136 k/uL (150-450); RBC 2.78 m/uL (4.30-5.90); RDW 15.7 % (11.5-15.5); WBC 6.1 k/uL (3.8-10.6)
--- NOTE | 2021-11-18 04:19 | ED ---
Chest Pain HPI - General Chief Complaint: Chest Pain Stated Complaint: chest pain Time Seen by Provider: 11/18/21 04:18 Source: patient, RN notes reviewed, old records reviewed Mode of arrival: wheelchair Limitations: no limitations - History of Present Illness Initial Comments: This is an 86-year-old male DF for evaluation of chest pain today. Patient presents today for evaluation of chest pain substernal chest pain right-sided chest pain no nausea vomiting or shortness of breath no fever cough or congestion, no travel history or sick contacts. This has not feeling prior history of heart disease. Patient history of CAD high blood pressure high cholesterol MD Complaint: chest pain -: hour(s) Onset: during rest, during exertion Pain Location: substernal, left chest, right chest Pain Radiation: none Severity: mild Severity scale (1-10): 3 Quality: aching Consistency: intermittent, now resolved Improves With: nothing Worsens With: nothing Anginal Symptoms: dyspnea Other Symptoms: palpitations Treatments Prior to Arrival: none - Related Data Home Medications Medication Instructions Recorded Confirmed Metoprolol Tartrate [Lopressor] 25 mg PO TID@0800,1200,1700 06/06/20 03/07/21 Nitroglycerin Sl Tabs [Nitrostat] 0.4 mg SUBLINGUAL Q5M PRN 06/06/20 03/07/21 amLODIPine BESYLATE/BENAZEPRIL 1 cap PO BID@0800,1700 06/06/20 03/07/21 [amLODIPine BESYLATE/BENAZEPRIL 5-10 MG] sitaGLIPtin PHOS/metFORMIN HCL 1 tab PO DAILY@0800 02/18/21 03/07/21 [Janumet 50-500 mg Tablet] Carbidopa-Levodopa ER 25-100Mg 1 tab PO BID@0800,1700 02/20/21 03/07/21 [Sinemet CR 25-100 mg] Aspirin EC [Ecotrin Low Dose] 81 mg PO DAILY@1700 03/07/21 03/07/21 Atorvastatin Calcium [Lipitor] 80 mg PO HS@2100 03/07/21 03/07/21 Clopidogrel Bisulfate [Plavix] 75 mg PO DAILY@0800 03/07/21 03/07/21 Glucerna Shake 237 ml PO TID@0800,1200,1700 03/07/21 03/07/21 Isosorbide Mononitrate ER [Imdur] 30 mg PO DAILY@0800 03/07/21 03/07/21 Magnesium Hydroxide [Milk of 7,200 mg PO DAILY PRN 03/07/21 03/07/21 Magnesia Concentrate] Na Phos,M-B/Na Phos,Di-Ba [Fleet 133 ml RECTAL DAILY PRN 03/07/21 03/07/21 Adult] bisacodyL [Dulcolax] 10 mg RECTAL DAILY PRN 03/07/21 03/07/21 Previous Rx's Medication Instructions Recorded Bicalutamide [Casodex] 150 mg PO DAILY 30 Days tablet 03/12/21 Gabapentin [Neurontin] 100 mg PO TID@0600,1400,2200 #9 cap 03/12/21 HYDROcodone/APAP 5-325MG [[place] 1 each PO Q4HR PRN #18 tab 03/12/21 5-325] Sennosides-Docusate Sodium 1 each PO BID tab 03/12/21 [Senokot-S] polyethylene glycoL 3350 [Miralax] 17 gm PO HS powd.pack 03/12/21 Allergies Allergy/AdvReac Type Severity Reaction Status Date / Time No Known Allergies Allergy Verified 11/18/21 03:32 Review of Systems ROS Statement: Those systems with pertinent positive or pertinent negative responses have been documented in the HPI. ROS Other: All systems not noted in ROS Statement are negative. EKG Findings - EKG Comments: EKG Findings:: EKG is sinus rhythm 66 MT 167 QRS 145 QTc 471 Past Medical History Past Medical History: Coronary Artery Disease (CAD), Cancer, Diabetes Mellitus, Hypertension, Neurologic Disorder Additional Past Medical History / Comment(s): Hx skin Cancer on L arm, parkinson's. Had nasal packing r/t nose bleeds within the last week. February 04, 2021 History of Any Multi-Drug Resistant Organisms: None Reported Past Surgical History: Back Surgery, Heart Catheterization With Stent Additional Past Surgical History / Comment(s): Skin CA removed from L arm; Colonoscopy x2 Past Anesthesia/Blood Transfusion Reactions: No Reported Reaction Date of Last Stent Placement:: 04/12/18 Past Psychological History: No Psychological Hx Reported Smoking Status: Never smoker Past Alcohol Use History: None Reported Past Drug Use History: None Reported - Past Family History Mother Family Medical History: No Reported History Additional Family Medical History / Comment(s): mother alive ; 100 on 05/09/18 General Exam Limitations: no limitations General appearance: alert, in no apparent distress Head exam: Present: atraumatic, normocephalic, normal inspection Eye exam: Present: normal appearance, PERRL, EOMI. Absent: scleral icterus, conjunctival injection, periorbital swelling ENT exam: Present: normal exam, mucous membranes moist Neck exam: Present: normal inspection. Absent: tenderness, meningismus, lymphadenopathy Respiratory exam: Present: normal lung sounds bilaterally. Absent: respiratory distress, wheezes, rales, rhonchi, stridor Cardiovascular Exam: Present: regular rate, normal rhythm, normal heart sounds. Absent: systolic murmur, diastolic murmur, rubs, gallop, clicks GI/Abdominal exam: Present: soft, normal bowel sounds. Absent: distended, tenderness, guarding, rebound, rigid Extremities exam: Present: normal inspection, full ROM, normal capillary refill. Absent: tenderness, pedal edema, joint swelling, calf tenderness Back exam: Present: normal inspection Neurological exam: Present: alert, oriented X3, CN II-XII intact Psychiatric exam: Present: normal affect, normal mood Skin exam: Present: warm, dry, intact, normal color. Absent: rash Course Vital Signs 11/18/21 11/18/21 11/18/21 03:29 04:40 05:10 Temperature 97.8 F Pulse Rate 67 66 65 Respiratory 18 15 14 Rate Blood Pressure 138/65 167/69 165/70 O2 Sat by Pulse 100 100 98 Oximetry 11/18/21 06:36 Temperature 97.9 F Pulse Rate 70 Respiratory 16 Rate Blood Pressure 164/80 O2 Sat by Pulse 100 Oximetry - Reevaluation(s) Reevaluation #1: 11/18/2021 Medical record is reviewed Patient symptoms are improved here in the emergency department Patient informed of results and questions are answered Chest Pain MDM - MDM 86 male to the emergency department for evaluation of chest pain. Patient here was in significant chest pain neighbors prior. Patient feeling improved during hospitalization, patient can be discharged home Disposition Clinical Impression: Chest pain Disposition: HOME SELF-CARE Condition: Good Instructions (If sedation given, give patient instructions): Chest Pain (ED) Is patient prescribed a controlled substance at d/c from ED?: No Referrals: Master Ochoa MD [Primary Care Provider] - 1-2 days
--- NOTE | 2021-11-18 04:20 | XR ---
EXAMINATION TYPE: XR chest 2V DATE OF EXAM: 11/18/2021 COMPARISON: 03/07/2021 HISTORY: Chest pain TECHNIQUE: 2 view FINDINGS: Heart is normal. Lungs are clear of consolidation. There are no hilar masses. There are moustapha e osteosclerotic changes in the thoracic spine and right shoulder. There is no heart failure. There a re no hilar masses. IMPRESSION: No active cardiopulmonary disease. Osteoblastic changes consistent with metastatic diseas e. Normal heart the heart and lungs not significantly different than last exam.
[2021-11-18 04:24] LABS: INR 1.3 (<1.2); Partial Thromboplastin Time 26.7 sec (22.0-30.0); Prothrombin Time 13.8 sec (9.0-12.0)
[2021-11-18 04:32] LABS: Albumin 3.9 g/dL (3.5-5.0); Calcium 8.1 mg/dL (8.4-10.2); Total Protein 6.7 g/dL (6.3-8.2)
[2021-11-18] MEDS ORDERED: ASPIRIN 81 MG PO STA (05:55)
[2021-11-18] MEDS ORDERED: HEPARIN SODIUM 1,000 UN/ML (10ML VL) IV ONE (05:55)
[2021-11-18] MEDS ORDERED: MORPHINE SULFATE 4 MG/ML SYRINGE IV PRN (05:55)
[2021-11-18] MEDS ORDERED: NITROGLYCERIN SL TABS 0.4 MG TAB SUBLINGUAL PRN (05:55)
[2021-11-18] MEDS ORDERED: HEPARIN SOD,PORK IN 0.45% NACL 25,000 UNIT in 0.45% NACL 1 250ML.BAG IV SCH (06:00)
[2021-11-18] MEDS ORDERED: SODIUM CHLORIDE 0.9% 1,000 ML IV SCH (06:00)
[2021-11-18 06:37] VITALS: BP 164/80; PULSE 70; RESP 16; TEMP 97.9
[2021-11-18] MEDS ORDERED: METOPROLOL TARTRATE 25 MG TAB PO SCH (09:00)
[2021-11-19] MEDS ORDERED: ASPIRIN 325 MG TAB PO SCH (09:00)
== END 2021-11-18 06:55 | disposition home or self-care (01) ==
LOC: EC 03:23 → UNDOADMOB 05:55 → 6NMEDSUR 05:55 → UNDODISOB 07:02
DX: R07.89 Other chest pain (principal); I25.10 Atherosclerotic heart disease of native coronary artery without angina pectoris; E11.9 Type 2 diabetes mellitus without complications; I10 Essential (primary) hypertension; Z79.84 Long term (current) use of oral hypoglycemic drugs; Z79.899 Other long term (current) drug therapy; Z79.82 Long term (current) use of aspirin; Z79.02 Long term (current) use of antithrombotics/antiplatelets
CPT/HCPCS: 36415; 71046; 80053; 83735; 84484; 85025; 85610; 85730; 93005; 99285

== ENCOUNTER → 2021-11-26 | Outpatient (CLI) | payer MEDICARE, BC ==
--- NOTE | 2021-11-26 15:15 | NM ---
EXAMINATION TYPE: NM bone scan whole body DATE OF EXAM: 11/26/2021 COMPARISON: CT scan 11/26/2021, bone scan 03/09/2021 HISTORY: History of malignancy Delayed whole-body scanning was performed following the injection of 22.6 mCi Tc 99m MDP. Images acq uired 3.5 hours post injection. FINDINGS: There are too numerous to count focal areas of increased and reduced radio pharmaceutical uptake thro ughout the skeleton to include the proximal humeri, femurs, pelvis, calvarium, spine, ribs, sternum. Soft tissue uptake is mildly decreased consistent with SuperScan. Suspected mild progression with re iban to the femur. There may be mild improvement involving the lower vertebral column within the lumb ar region. Given differences in technique and other findings appear similar. Retrospectively the calv arial changes likely represent on the prior exam. The left mandibular uptake is noted. IMPRESSION: Findings again are suggestive of diffuse osseous metastasis involving virtually every osseous structu re. There are both lytic and blastic metastases suspected. Suspected mild progression with regard to the bilateral femur. There may be mild improvement involvin g the lower vertebral column within the lumbar region. There is new faint uptake involving left sergio ble which be correlated clinically and if necessary with x-ray.
--- NOTE | 2021-11-26 19:53 | CT ---
EXAMINATION TYPE: CT abdomen pelvis w con CT DLP: 944 mGycm, Automated exposure control for dose reduction was used. DATE OF EXAM: 11/26/2021 11:34 AM COMPARISON: CT abdomen pelvis most recent from 03/08/2021 bone scan 03/09/2021. CLINICAL INDICATION:Male, 86 years old with history of C61 prostate ca; Prostate cancer. TECHNIQUE: Standard CT of the abdomen and pelvis following the administration of 100 cc of Isovue 3 00 IV contrast material. Oral contrast was also administered. Coronal and sagittal reformats were per formed. FINDINGS: LOWER CHEST: Unremarkable ABDOMEN LIVER: Unremarkable GALLBLADDER AND BILE DUCTS: Unremarkable. PANCREAS: Unremarkable. SPLEEN: Unremarkable. ADRENAL GLANDS: Right adrenal nodule is unchanged from prior dating back to 2019. KIDNEYS AND URETERS: No evidence of hydronephrosis or renal calculus. The ureters are unremarkable. PELVIS BLADDER: Unremarkable REPRODUCTIVE: Postintervention changes of the prostate gland. ABDOMEN & PELVIS STOMACH AND BOWEL: No evidence of bowel obstruction. PERITONEUM: No evidence of pneumoperitoneum or free fluid. VASCULATURE: Moderate atherosclerotic calcifications are present throughout the abdominal aorta and i ts branches. MUSCULOSKELETAL: Interval increase in sclerosis of the osseous structures affecting every bone in the [id number] including the lower extremities. LYMPH NODES: No gross evidence for lymphadenopathy. SOFT TISSUE/ABDOMINAL WALL: Unremarkable IMPRESSION: 1. Interval increase in sclerosis throughout the osseous structures most consistent with worsening di ffuse osteoblastic metastatic disease. 2. Unchanged right adrenal nodule dating back to 2019. This favors a benign adrenal adenoma.
== END | disposition home or self-care (01) ==
LOC: RADNMMAIN 09:56
PROVIDERS: ATTEND Urology
DX: C61 Malignant neoplasm of prostate (principal); C79.51 Secondary malignant neoplasm of bone; E27.8 Other specified disorders of adrenal gland
CPT/HCPCS: 82565; 84520; 74177; 36415; 78306; A9503; Q9967 ×2

== ENCOUNTER 2022-01-12 11:26 | Day surgery (SDC) | payer MEDICARE, BC ==
[2022-01-11 14:26] VITALS: BMI 19.5
[~2022-01-12 11:26] MED LIST changes: -ALPRAZolam 0.25 MG TAB PO PRN; -ASPIRIN 325 MG TAB PO ONE; +LACTATED RINGERS 1,000 ML IV SCH; +LIDOCAINE 1% (10MG/ML) FOR IV START INTRADERMA PRN; +MOXIFLOXACIN HCL 0.5% DROPS 3 ML BTL OP PRN; -NITROGLYCERIN SL TABS 0.4 MG TAB SUBLINGUAL PRN; -SODIUM CHLORIDE 0.9% 1,000 ML in EMPTY BAG 1 BAG IV ONE; +TETRACAINE 0.5% OPHTH (PF) DROPS 4 ML BTL OP PRN; +TIMOLOL 0.5% OPHTH DROPS 5 ML BTL OP PRN
[2022-01-12 12:09] VITALS: RESP 16; TEMP 98.3
[2022-01-12] MEDS: CYCLOPENTOLATE 1% OPHTH SOLN 2 ML BTL OP PRN ×3 (12:15→12:30)
[2022-01-12] MEDS: PHENYLEPHRINE 2.5% OPHTH DRP 2ML OP PRN ×3 (12:18→12:34)
[2022-01-12 12:28] LABS: Glucose,Whole Blood 171 mg/dL (75-99)
[2022-01-12] MEDS ORDERED: fentaNYL (PF) 50 MCG/ML 2 ML AMP ONE (13:07)
[2022-01-12] MEDS ORDERED: EPINEPHrine (PF) 0.3 ML in BALANCED SALT IRRIG SOLN COMB2 500 ML IRRIGATION ONE (13:27)
[2022-01-12] MEDS ORDERED: DUOVISC KIT (GREEN BOX) INTRAOCULA ONE (13:29)
[2022-01-12] MEDS ORDERED: BALANCED SALT IRRIG SOLN COMB2 15 ML IRRIG.SOLN INTRAOCULA ONE (13:29)
[2022-01-12] MEDS ORDERED: TRYPAN BLUE 0.06% SYRINGE 0.5 ML SYRINGE INTRAOCULA ONE (13:29)
[2022-01-12] MEDS ORDERED: LIDOCAINE 1% (PF) 10MG/ML VIAL INTRAARTIC ONE (13:30)
--- NOTE | 2022-01-12 13:40 | P.OP ---
Date of Procedure: 01/12/22 Preoperative Diagnosis: mature lens Postoperative Diagnosis: same Procedure(s) Performed: PIOL< OD Implants: [id number] 22.50 Surgeon: Chase Richardson Pathology: none sent Condition: stable Disposition: same day Indications for Procedure: blurry vision Operative Findings: no complications
[2022-01-12 14:16] VITALS: BP 146/62; PULSE 56
[2022-01-12 15:32] LABS: Glucose,Whole Blood 139 mg/dL (75-99)
--- NOTE | 2022-01-13 11:09 | OP ---
OPERATIVE REPORT DATE OF SURGERY: January 12, 2022. PROCEDURE: Phacoemulsification of cataract and intraocular lens implant of the right eye. PREOPERATIVE DIAGNOSIS: Mature cataract of the right eye. POSTOPERATIVE DIAGNOSIS: Mature cataract of the right eye. SURGEON: Dr. Chase Richardson. ANESTHESIA: Topical. ESTIMATED BLOOD LOSS: None. SPECIMEN TAKEN: None. NARRATIVE: After obtaining the appropriate consent, the patient was brought to the operating room. There he was placed under cardiac monitoring, prepped and draped in the usual sterile manner. He was approached from his right temporal side and at the 11 o'clock position, an MVR blade was used to create a paracentesis port. Through that opening, 1% Xylocaine MPF was instilled into the eye. Following the anesthetic, Trypan blue was instilled in the eye and left in place for 1 minute. Once this was irrigated away with balanced salt solution, the eye was stabilized with Viscoat. At the 9 o'clock position, a 2.5 mm keratome was used to create a self-sealing corneal flap incision. Through this opening, a cystotome was introduced to begin a continuous tear capsulorrhexis which was then completed using the Utrata forceps. Hydrodissection and hydrodelineation of the lens was accomplished with balanced salt solution. Phacoemulsification lens utilizing phaco chop was accomplished in 37.39 seconds at 14% power. Additional Xylocaine MPF was instilled into the anterior chamber and the remaining cortical material was removed under irrigation and aspiration as well as careful polishing of the posterior capsule in capsule vacuum mode. Provisc was then used to stabilize the capsular bag and a [employer]ausch [employer] Lomb MX 60E 22.5 diopter posterior chamber intraocular lens was then inserted into the capsular bag without difficulty. The remaining viscoelastic was then removed from within the capsular bag behind the lens as well as the anterior chamber. The eye was then brought to normal intraocular pressure through the paracentesis port and the incisions were confirmed watertight. He then received 2 drops of 0.5% timolol followed by 2 drops of moxifloxacin, was then lightly patched and shielded in the usual manner. There were no complications from the procedure. He tolerated the procedure well and was returned to outpatient recovery in good condition. MMODL / IJN: [id number] /
== END 2022-01-12 15:54 | disposition home or self-care (01) ==
LOC: OR 11:26
PROVIDERS: ATTEND Ophthalmology
DX: H25.11 Age-related nuclear cataract, right eye (principal)
CPT/HCPCS: 66984; C1780; J0171; J3010; J2001

== ENCOUNTER 2022-01-22 18:47 | Emergency (ER) | payer MEDICARE, BC ==
[2022-01-22 19:21] VITALS: RESP 18
--- NOTE | 2022-01-22 19:50 | XR ---
EXAM: Abdomen radiograph. HISTORY: Pain. TECHNIQUE: Supine AP view. COMPARISON: 11/26/2021 FINDINGS: There are nondilated bowel loops with a nonobstructive pattern. There is moderate to large amount of stool throughout the colon. There are no pathologic calcifications. Redemonstrated diffuse increase s clerosis of the axial and appendicular skeleton. IMPRESSION: Redemonstrated diffuse osseous sclerotic changes. Otherwise stool burden without acute process.
--- NOTE | 2022-01-22 23:43 | ED ---
General Adult HPI - General Chief complaint: Recheck/Abnormal Lab/Rx Stated complaint: Constipation Time Seen by Provider: 01/22/22 23:24 Source: patient, RN notes reviewed Mode of arrival: ambulatory Limitations: no limitations - History of Present Illness Initial comments: 86-year-old male presents to the emergency department accompanied by family mem nadine for evaluation of constipation and productive cough. Patient states he has not had a bowel movement for the past week. Family states they did give him a suppository yesterday with no results. Report a history of Parkinson's disease though he has had no trouble moving his bowels in the recent past. They also state he was recently treated with an antibiotic for a URI. State the cough seems to be worsening and they note that it is now productive. They are concerned about influenza. Deny fever, chills, headache, chest pain, difficulty breathing, abdominal pain, nausea, vomiting, diarrhea, or dysuria. - Related Data Home Medications Medication Instructions Recorded Confirmed Metoprolol Tartrate [Lopressor] 25 mg PO DAILY 06/06/20 01/12/22 Nitroglycerin Sl Tabs [Nitrostat] 0.4 mg SUBLINGUAL Q5M PRN 06/06/20 01/12/22 amLODIPine BESYLATE/BENAZEPRIL 1 cap PO BID 06/06/20 01/12/22 [amLODIPine BESYLATE/BENAZEPRIL 5-10 MG] sitaGLIPtin PHOS/metFORMIN HCL 1 tab PO DAILY 02/18/21 01/12/22 [Janumet 50-500 mg Tablet] Atorvastatin Calcium [Lipitor] 80 mg PO HS 03/07/21 01/12/22 Isosorbide Mononitrate ER [Imdur] 30 mg PO DAILY 03/07/21 01/12/22 Calcium/Magnesium/Zinc 1 each PO DAILY 01/11/22 01/12/22 [[place]-Bmia Tablet] Carbidopa-Levodopa ER 50-200Mg 1 tab PO TID 01/11/22 01/12/22 [Sinemet CR 50-200 mg] Enzalutamide [Xtandi] 160 mg PO PC-LUNCH 01/11/22 01/12/22 Gabapentin [Neurontin] 100 mg PO TID 01/11/22 01/12/22 Pedi Multivit No.25/Folic Acid 1 tab PO DAILY 01/11/22 01/12/22 [Flintstones Multivit Chew Tab] Previous Rx's Medication Instructions Recorded Docusate [Colace] 100 mg PO DAILY PRN #30 capsule 01/23/22 Allergies Allergy/AdvReac Type Severity Reaction Status Date / Time No Known Allergies Allergy Verified 01/22/22 19:22 Review of Systems ROS Statement: Those systems with pertinent positive or pertinent negative responses have been documented in the HPI. ROS Other: All systems not noted in ROS Statement are negative. 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 History of Any Multi-Drug Resistant Organisms: None Reported Past Surgical History: Back Surgery, Heart Catheterization With Stent Additional Past Surgical History / Comment(s): Skin CA removed from L arm; Colonoscopies. Past Anesthesia/Blood Transfusion Reactions: No Reported Reaction, Family History of Problems w/ Anesthesia Additional Past Anesthesia/Blood Transfusion Reaction / Comment(s): son states his bloodpressure dropped during surgery and he is concerned about his Dad, would like his BP monitored closely- pt may not tell you is he is not feeling well. Date of Last Stent Placement:: 04/12/18 Past Psychological History: No Psychological Hx Reported Smoking Status: Never smoker Past Alcohol Use History: None Reported Past Drug Use History: None Reported - Past Family History Mother Family Medical History: No Reported History Additional Family Medical History / Comment(s): . General Exam Limitations: language barrier (Patient is very hard of hearing) General appearance: alert, in no apparent distress (Well-developed, fairly nourished male presents to the emergency department with an initial temperature 98.2, pulse 74, respirations 18, blood pressure 150/60, pulse ox 98% on room air.) ENT exam: Present: normal oropharynx, mucous membranes moist Respiratory exam: Present: normal lung sounds bilaterally. Absent: respiratory distress, wheezes, rales, rhonchi, stridor, chest wall tenderness Cardiovascular Exam: Present: regular rate, normal rhythm, normal heart sounds. Absent: systolic murmur, diastolic murmur, rubs, gallop, clicks GI/Abdominal exam: Present: soft, normal bowel sounds. Absent: distended, tenderness, guarding, rebound, rigid Back exam: Absent: CVA tenderness (R), CVA tenderness (L) Neurological exam: Present: alert, oriented X3, other (Resting tremor baseline for patient due to history of Parkinson's disease) Psychiatric exam: Present: flat affect Skin exam: Present: warm, dry, intact Course Vital Signs 01/22/22 01/23/22 19:19 01:57 Temperature 98.2 F 98.7 F Pulse Rate 74 80 Respiratory 18 18 Rate Blood Pressure 150/68 144/84 O2 Sat by Pulse 98 97 Oximetry - Reevaluation(s) Reevaluation #1: 01/23/22 00:45 Upon reevaluation, patient and family report improvement as patient has had significant stool output after enema. They verbalize readiness for discharge. Medical Decision Making - Medical Decision Making This is a pleasant 86-year-old male with a past medical history of Parkinson's disease, type 2 diabetes, hypertension, and CAD who presents to the emergency department for evaluation of constipation and cough. Upon exam, patient is in no acute distress. Abdomen is soft and nontender upon palpation. He is not experiencing any cough, shortness of breath, or evidence of increased breathing. He does have a resting tremor which is baseline for him. Chest x-ray is unremarkable. Influenza and Covid negative. KUB shows moderate to large burden of stool. Patient was given an enema with good output. Discussed cough with patient and family. As chest x-ray shows no evidence of bronchitis or pneumonia, therefore patient will not be treated with another round of antibiotics. Did discuss the protective mechanism of cough therefore advised against suppression. Patient will be prescribed a short course of stool softener and encouraged to increase fluids and fiber. Instructed to follow up with the PCP for a recheck next week. Return parameters were discussed in detail. Patient and family verbalized understanding and agreed with this plan. Attending: Parish. - Lab Data Lab Results 01/22/22 01/22/22 Range/Units 23:45 23:45 Coronavirus (PCR) Not Detected (Not Detectd) Influenza Type A RNA Not Detected (Not Detectd) Influenza Type B (PCR) Not Detected (Not Detectd) - Radiology Data Radiology results: report reviewed, image reviewed KUB x-ray was obtained. Report was reviewed in its entirety. Impression per Dr. Ragsdale is redemonstrated diffuse osteosis sclerotic changes. Otherwise stool burden without acute process. Two-view chest x-ray was obtained. Report was reviewed in its entirety. Impression per Dr. Loving is no active cardiopulmonary disease. Osteoclastic changes not significantly different than old exam. Disposition Clinical Impression: Constipation, Cough Disposition: HOME SELF-CARE Condition: Stable Instructions (If sedation given, give patient instructions): Constipation (ED), High Fiber Diet (ED), Acute Cough (ED) Additional Instructions: Increase intake of water and add more fiber to your diet. Take Colace (stool softener) once daily for seven days. Your chest XRay shows no signs of bronchitis or pneumonia. Consider using a humidifier in the bedroom. Follow up with your PCP for a recheck next week. Return to the emergency department with any new, worsening, or concerning symptoms. Prescriptions: Docusate [Colace] 100 mg PO DAILY PRN #30 capsule PRN Reason: Constipation Is patient prescribed a controlled substance at d/c from ED?: No Referrals: Master Ochoa MD [Primary Care Provider] - 1-2 days Time of Disposition: 01:36
--- NOTE | 2022-01-23 00:27 | XR ---
EXAMINATION TYPE: XR chest 2V DATE OF EXAM: 01/22/2022 COMPARISON: 11/18/2021 HISTORY: Chest pain TECHNIQUE: FINDINGS: There is no heart failure nor confluent pneumonic infiltrate. Costophrenic angles are clear . Thoracic aorta is atheromatous. Bony thorax is intact. Thoracic spine is intact. There is some oste oblastic changes noted in the thoracic spine and in the shoulders. IMPRESSION: No active cardiopulmonary disease. Osteoblastic changes not significantly different than old exam.
[2022-01-23 01:58] VITALS: BP 144/84; PULSE 80; TEMP 98.7
== END 2022-01-23 01:58 | disposition home or self-care (01) ==
LOC: EC 18:47
DX: K59.00 Constipation, unspecified (principal); R05.9 Cough, unspecified; I10 Essential (primary) hypertension; E78.5 Hyperlipidemia, unspecified; E11.9 Type 2 diabetes mellitus without complications; Z20.822 Contact with and (suspected) exposure to COVID-19
CPT/HCPCS: 71046; 74018; 87502; 87635; 99284

== ENCOUNTER 2022-02-23 08:36 | Day surgery (SDC) | payer MEDICARE, BC ==
[~2022-02-23 08:36] MED LIST changes: -LIDOCAINE 1% (10MG/ML) FOR IV START INTRADERMA PRN
[2022-02-23 09:33] VITALS: TEMP 96.2
[2022-02-23] MEDS: CYCLOPENTOLATE 1% OPHTH SOLN 2 ML BTL OP PRN ×3 (09:34→09:46)
[2022-02-23] MEDS: PHENYLEPHRINE 2.5% OPHTH DRP 2ML OP PRN ×3 (09:37→09:49)
[2022-02-23 09:52] LABS: Glucose,Whole Blood 151 mg/dL (70-110)
[2022-02-23] MEDS ORDERED: MIDAZOLAM 2 MG/2 ML VIAL IV ONE (09:57)
[2022-02-23] MEDS ORDERED: BALANCED SALT IRRIG SOLN COMB2 15 ML IRRIG.SOLN IRRIGATION ONE (10:28)
[2022-02-23] MEDS ORDERED: LIDOCAINE 1% (PF) 10MG/ML VIAL MISCELLANE ONE (10:29)
[2022-02-23] MEDS ORDERED: fentaNYL (PF) 50 MCG/ML 2 ML AMP ONE (10:29)
[2022-02-23] MEDS ORDERED: DUOVISC KIT (GREEN BOX) INTRAOCULA ONE (10:29)
[2022-02-23] MEDS ORDERED: MIDAZOLAM 2 MG/2 ML VIAL ONE (10:29)
[2022-02-23] MEDS ORDERED: EPINEPHrine (PF) 0.3 ML in BALANCED SALT IRRIG SOLN COMB2 500 ML IRRIGATION ONE (10:30)
--- NOTE | 2022-02-23 10:58 | P.OP ---
Date of Procedure: 02/23/22 Preoperative Diagnosis: NS Postoperative Diagnosis: same Procedure(s) Performed: PIOL< OS Implants: MX60E 22.50 Anesthesia: MAC Surgeon: Chase Richardson Pathology: none sent Condition: stable Disposition: same day Indications for Procedure: blurry vision Operative Findings: no complications
[2022-02-23 11:08] VITALS: RESP 16
[2022-02-23 11:19] VITALS: BP 165/74; PULSE 57
--- NOTE | 2022-02-23 22:37 | OP ---
OPERATIVE REPORT DATE OF SURGERY: February 23, 2022. PROCEDURES: Phacoemulsification of cataract and intraocular lens implant of the left eye. PREOPERATIVE DIAGNOSES: Nuclear sclerosis. POSTOPERATIVE DIAGNOSIS: Nuclear sclerosis. OPERATION: Clear cornea phacoemulsification of cataract left/OS eye. ESTIMATED BLOOD LOSS: Zero. SPECIMEN TAKEN: None. NARRATIVE: After obtaining the appropriate consent, the patient was brought to the Operating Room where the patient was placed under cardiac monitoring and prepped and draped in the usual sterile manner. At the 5 o'clock position a 15 degree super sharp blade was used to create a paracentesis followed by instillation of 1% Xylocaine MPF 50:50 mix with BSS into the anterior chamber. This was followed by Duovisc to stabilize the anterior chamber. At the 3 o'clock position a self-sealing corneal flap incision was created using 2.8 mm sam keratome. A cystotome was used to initiate a continuous tear capsulorrhexis which was completed with the Utrata forceps. A Binkhorst cannula was used to hydrodissect the lens nucleus followed by hydrodelineation. Phacoemulsification of the lens was performed utilizing phacochop in 25.13 seconds at 24% power. The remaining cortical material was removed using the irrigation aspiration mode followed by additional 1% Xylocaine MPF into the anterior chamber followed by viscoelastic to stabilize the capsular bag. A [employer] MX 60E 22.5 diopter posterior chamber lens was placed into the capsular bag without difficulty. The remaining viscoelastic material was removed from the anterior chamber with the irrigation/aspiration. Balanced salt solution was used to normalize the intraocular pressure. The incision was checked for watertight integrity. The patient then received two drops of 0.5% timolol followed by two drops Vigamox, was lightly patched and shielded in the usual manner. There were no complications from the procedure. The patient tolerated the procedure well and was returned to recovery in good condition. MMODL / IJN: [id number] /
== END 2022-02-23 11:48 | disposition home or self-care (01) ==
LOC: OR 08:36
PROVIDERS: ATTEND Ophthalmology
DX: E11.36 Type 2 diabetes mellitus with diabetic cataract (principal); H25.12 Age-related nuclear cataract, left eye; H16.123 Filamentary keratitis, bilateral; G20 Parkinson's disease; C61 Malignant neoplasm of prostate; I10 Essential (primary) hypertension; Z98.41 Cataract extraction status, right eye; Z96.1 Presence of intraocular lens; K21.9 Gastro-esophageal reflux disease without esophagitis; Z79.84 Long term (current) use of oral hypoglycemic drugs; Z79.899 Other long term (current) drug therapy; I25.10 Atherosclerotic heart disease of native coronary artery without angina pectoris; E78.5 Hyperlipidemia, unspecified; Z95.5 Presence of coronary angioplasty implant and graft; Z85.828 Personal history of other malignant neoplasm of skin
CPT/HCPCS: 66984; C1780; J2250; J0171; J3010; J2001

== ENCOUNTER 2022-02-27 22:32 | Emergency (ER) | payer MEDICARE, BC ==
[2022-02-27 23:49] VITALS: BP 166/71; PULSE 71; RESP 20; TEMP 98.1
--- NOTE | 2022-02-28 00:27 | XR ---
EXAM: XR Abdomen, 1 View CLINICAL HISTORY: ITS.REASON XR Reason: abdominal pain/constipation TECHNIQUE: Frontal supine view of the abdomen/pelvis. COMPARISON: No relevant prior studies available. FINDINGS/IMPRESSION: Moderate to severe fecal retention, correlate for constipation. Nonobstructed bowel gas pattern. Generalized sclerosis throughout the skeletal structures, concerning for diffuse osteoblastic metastases. Consider bone scan for further evaluation.
[2022-02-28 04:33] LABS: Anisocytosis Slight; Basophils % (A) 0 %; Eosinophils # (A) 0.1 k/uL (0-0.7); Eosinophils % (A) 1 %; HCT 28.5 % (39.0-53.0); HGB 9.9 gm/dL (13.0-17.5); Lymphocytes # (A) 1.1 k/uL (1.0-4.8); Lymphocytes % (A) 19 %; MCH 32.4 pg (25.0-35.0); MCHC 34.6 g/dL (31.0-37.0); MCV 93.7 fL (80.0-100.0); Mean Platelet Volume 8.4; Monocytes # (A) 0.4 k/uL (0-1.0); Monocytes % (A) 7 %; Neutrophils # (A) 4.2 k/uL (1.3-7.7); Neutrophils % (A) 70 %; Platelet Count 160 k/uL (150-450); RBC 3.04 m/uL (4.30-5.90); RDW 17.1 % (11.5-15.5); WBC 5.9 k/uL (3.8-10.6)
--- NOTE | 2022-02-28 05:03 | ED ---
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 Patient is accompanied by his son who reports they have been attempting to treat his constipation with Colace and senna, however the patient has been unable to have any significant formed stool for the past 3-4 days. Patient's son states the patient has also had various falls and appears to be more uncomfortable. States he does have a contusion on the left buttock. States they're scheduled to see the neurologist this week for medication adjustment regarding his Parkinson's disease. Denies fever, chills, headache, neck pain, chest pain, rib pain, difficulty breathing, nausea, v omiting, diarrhea, or dysuria. - Related Data Home Medications Medication Instructions Recorded Confirmed Metoprolol Tartrate [Lopressor] 25 mg PO DAILY 06/06/20 02/22/22 Nitroglycerin Sl Tabs [Nitrostat] 0.4 mg SUBLINGUAL Q5M PRN 06/06/20 02/22/22 amLODIPine BESYLATE/BENAZEPRIL 1 cap PO BID 06/06/20 02/22/22 [amLODIPine BESYLATE/BENAZEPRIL 5-10 MG] sitaGLIPtin PHOS/metFORMIN HCL 1 tab PO DAILY 02/18/21 02/22/22 [Janumet 50-500 mg Tablet] Atorvastatin Calcium [Lipitor] 80 mg PO HS 03/07/21 02/22/22 Isosorbide Mononitrate ER [Imdur] 30 mg PO DAILY 03/07/21 02/22/22 Calcium/Magnesium/Zinc 1 each PO DAILY 01/11/22 02/22/22 [Twwotbw-Kjhzypgty-Gyfu Tablet] Carbidopa-Levodopa ER 50-200Mg 1 tab PO TID 01/11/22 02/22/22 [Sinemet CR 50-200 mg] Enzalutamide [Xtandi] 160 mg PO HS 01/11/22 02/22/22 Gabapentin [Neurontin] 100 mg PO TID 01/11/22 02/22/22 Pedi Multivit No.25/Folic Acid 1 tab PO DAILY 01/11/22 02/22/22 [Flintstones Multivit Chew Tab] Previous Rx's Medication Instructions Recorded Docusate [Colace] 100 mg PO DAILY PRN #30 capsule 01/23/22 Allergies Allergy/AdvReac Type Severity Reaction Status Date / Time No Known Allergies Allergy Verified 02/27/22 23:49 Review of Systems ROS Statement: Those systems with pertinent positive or pertinent negative responses have been documented in the HPI. ROS Other: All systems not noted in ROS Statement are negative. 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 History of Any Multi-Drug Resistant Organisms: None Reported Past Surgical History: Back Surgery, Heart Catheterization With Stent Additional Past Surgical History / Comment(s): Skin CA removed from L arm; Colonoscopies. Past Anesthesia/Blood Transfusion Reactions: No Reported Reaction, Family History of Problems w/ Anesthesia Additional Past Anesthesia/Blood Transfusion Reaction / Comment(s): son states his bloodpressure dropped during surgery and he is concerned about his Dad, would like his BP monitored closely- pt may not tell you is he is not feeling well. Date of Last Stent Placement:: 04/12/18 Past Psychological History: No Psychological Hx Reported Smoking Status: Never smoker Past Alcohol Use History: None Reported Past Drug Use History: None Reported - Past Family History Mother Family Medical History: No Reported History Additional Family Medical History / Comment(s): . General Exam Limitations: no limitations General appearance: alert, cachectic (Well-developed, poorly nourished male in no acute distress. Initial temperature 98.1, pulse 71, respirations 20, blood pressure 166/71, pulse Ox 100% on room air.) Head exam: Present: atraumatic, normocephalic Eye exam: Absent: normal appearance (recent cataract surgery left eye; shield taped in place. ), scleral icterus, conjunctival injection ENT exam: Present: mucous membranes dry Neck exam: Present: normal inspection, full ROM. Absent: tenderness, meningismus, lymphadenopathy Respiratory exam: Present: normal lung sounds bilaterally. Absent: respiratory distress, wheezes, rales, rhonchi, stridor, chest wall tenderness Cardiovascular Exam: Present: regular rate, normal rhythm, normal heart sounds. Absent: systolic murmur, diastolic murmur, rubs, gallop, clicks GI/Abdominal exam: Present: soft, tenderness (scattered areas of tenderness upon palpation), normal bowel sounds. Absent: distended, guarding, rebound, rigid Extremities exam: Present: normal inspection, normal capillary refill. Absent: pedal edema Back exam: Present: muscle spasm (thoracic region). Absent: paraspinal tenderness, vertebral tenderness Neurological exam: Present: alert, oriented X3, other (slow recall baseline for patient; resting tremor baseline and attributed to PD) Psychiatric exam: Present: flat affect Skin exam: Present: warm, dry, intact, normal color, other (contusion left buttock). Absent: rash Course Vital Signs 02/27/22 23:40 Temperature 98.1 F Pulse Rate 71 Respiratory 20 Rate Blood Pressure 166/71 O2 Sat by Pulse 100 Oximetry - Reevaluation(s) Reevaluation #1: 02/28/22 05:00 Enema attempts were unsuccessful as patient was unable to retain the volume of liquid for any length of time. Patient is requesting discharge. Son states they will follow up with the PCP this week as scheduled. Medical Decision Making - Medical Decision Making This is an 86-year-old male with past medical history of stage IV prostate cancer accompanied by bone metastases, Parkinson's disease, and ongoing constipation who presents to the emergency department accompanied by his son. Patient is requesting an enema as he has had minimal stool output over the past 3-4 days. Upon exam, patient appears cachectic, but in no acute distress. His abdomen is soft with scattered areas of tenderness upon palpation. Bowel sounds are active. X-ray shows moderate to large burden of stool. Patient was given soapsuds enema but was unable to retain the volume of liquid therefore was overall unsuccessful. The patient is noted to have muscle spasms in the thoracic region; son did request muscle relaxer however explained that this was contraindicated given patient's age and impaired mobility. Did offer lidocaine patch for localized area of discomfort and patient was agreeable with this plan. I discussed this patient's care with my attending, Dr. Will, who recommends the patient be given GoLYTELY to take at home. They're instructed to follow up with the PCP as scheduled this week. Return parameters were discussed in detail. Patient and son verbalized understanding and agreed with this plan. - Lab Data Result diagrams: 02/28/22 04:20 Lab Results 02/28/22 Range/Units 04:20 WBC 5.9 (3.8-10.6) k/uL RBC 3.04 L (4.30-5.90) m/uL Hgb 9.9 L (13.0-17.5) gm/dL Hct 28.5 L (39.0-53.0) % MCV 93.7 (80.0-100.0) fL MCH 32.4 (25.0-35.0) pg MCHC 34.6 (31.0-37.0) g/dL RDW 17.1 H (11.5-15.5) % Plt Count 160 (150-450) k/uL MPV 8.4 Neutrophils % 70 % Lymphocytes % 19 % Monocytes % 7 % Eosinophils % 1 % Basophils % 0 % Neutrophils # 4.2 (1.3-7.7) k/uL Lymphocytes # 1.1 (1.0-4.8) k/uL Monocytes # 0.4 (0-1.0) k/uL Eosinophils # 0.1 (0-0.7) k/uL Basophils # 0.0 (0-0.2) k/uL Anisocytosis Slight - Radiology Data Radiology results: report reviewed, image reviewed 1 view x-ray of the abdomen was obtained. Report was reviewed in its entirety. Impression per Dr. Mccrary is moderate to severe fecal retention, correlate for constipation. Nonobstructed bowel gas pattern. Generalized sclerosis throughout the skeletal structures concerning for diffuse osteoblastic metastases. Consider bone scan for further evaluation. Disposition Clinical Impression: Constipation, Spasm of thoracic back muscle Disposition: HOME SELF-CARE Condition: Stable Additional Instructions: Drink the GoLYTELY solution in place of using Colace, senna, or MiraLAX. This is best consumed in small increments. Follow-up with your PCP this week as discussed. Return to the emergency department with any new, worsening, or concerning symptoms. Is patient prescribed a controlled substance at d/c from ED?: No Referrals: Master Ochoa MD [Primary Care Provider] - 1-2 days Time of Disposition: 05:37
[2022-02-28] MEDS ORDERED: LIDOCAINE 5% PATCH TOPICAL STA (05:21)
[2022-02-28] MEDS ORDERED: PEG 3350-NA SULF,BICARB,CL/KCL 4,000 ML BOTTLE PO ONE (06:00)
== END 2022-02-28 05:51 | disposition home or self-care (01) ==
LOC: EC 22:32
DX: K59.00 Constipation, unspecified (principal); M62.830 Muscle spasm of back; E11.9 Type 2 diabetes mellitus without complications; E78.5 Hyperlipidemia, unspecified; I10 Essential (primary) hypertension
CPT/HCPCS: 36415; 74018; 85025; 99284

== ENCOUNTER 2022-03-16 11:23 | Emergency (ER) | payer MEDICARE, BC ==
[2022-03-16] MEDS ORDERED: SODIUM CHLORIDE 0.9% 1,000 ML IV STA (11:26)
[2022-03-16 11:36] VITALS: RESP 18; TEMP 96
--- NOTE | 2022-03-16 11:52 | ED ---
General Adult HPI - General Chief complaint: Recheck/Abnormal Lab/Rx Stated complaint: elevated heart rate, dehydration Time Seen by Provider: 03/16/22 11:26 Source: patient, family, RN notes reviewed Mode of arrival: wheelchair Limitations: no limitations - History of Present Illness Initial comments: Patient is a pleasant 86-year-old male presenting to the emergency Department with general weakness. Patient was at oncology office earlier. Concerns for dehydration. Patient does have increased heart rate. Patient has had decreased oral intake and sleeping significantly. They are concerned for possible depression and dehydration. Patient is a poor historian and majority of history is taken from family. Patient does have history of metastatic prostate cancer - Related Data Home Medications Medication Instructions Recorded Confirmed Metoprolol Tartrate [Lopressor] 25 mg PO DAILY 06/06/20 02/22/22 Nitroglycerin Sl Tabs [Nitrostat] 0.4 mg SUBLINGUAL Q5M PRN 06/06/20 02/22/22 amLODIPine BESYLATE/BENAZEPRIL 1 cap PO BID 06/06/20 02/22/22 [amLODIPine BESYLATE/BENAZEPRIL 5-10 MG] sitaGLIPtin PHOS/metFORMIN HCL 1 tab PO DAILY 02/18/21 02/22/22 [Janumet 50-500 mg Tablet] Atorvastatin Calcium [Lipitor] 80 mg PO HS 03/07/21 02/22/22 Isosorbide Mononitrate ER [Imdur] 30 mg PO DAILY 03/07/21 02/22/22 Calcium/Magnesium/Zinc 1 each PO DAILY 01/11/22 02/22/22 [Gvtwnhq-Hfmgdpund-Jfej Tablet] Carbidopa-Levodopa ER 50-200Mg 1 tab PO TID 01/11/22 02/22/22 [Sinemet CR 50-200 mg] Enzalutamide [Xtandi] 160 mg PO HS 01/11/22 02/22/22 Gabapentin [Neurontin] 100 mg PO TID 01/11/22 02/22/22 Pedi Multivit No.25/Folic Acid 1 tab PO DAILY 01/11/22 02/22/22 [Flintstones Multivit Chew Tab] Previous Rx's Medication Instructions Recorded Docusate [Colace] 100 mg PO DAILY PRN #30 capsule 01/23/22 Allergies Allergy/AdvReac Type Severity Reaction Status Date / Time No Known Allergies Allergy Verified 03/16/22 11:36 Review of Systems ROS Statement: Those systems with pertinent positive or pertinent negative responses have been documented in the HPI. ROS Other: All systems not noted in ROS Statement are negative. Constitutional: Denies: fever Eyes: Denies: eye pain ENT: Denies: ear pain Respiratory: Denies: cough Cardiovascular: Reports: as per HPI. Denies: chest pain, palpitations Endocrine: Reports: as per HPI, fatigue Gastrointestinal: Reports: as per HPI. 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 History of Any Multi-Drug Resistant Organisms: None Reported Past Surgical History: Back Surgery, Heart Catheterization With Stent Additional Past Surgical History / Comment(s): Skin CA removed from L arm; Colonoscopies. Past Anesthesia/Blood Transfusion Reactions: No Reported Reaction, Family History of Problems w/ Anesthesia Additional Past Anesthesia/Blood Transfusion Reaction / Comment(s): son states his bloodpressure dropped during surgery and he is concerned about his Dad, would like his BP monitored closely- pt may not tell you is he is not feeling well. Date of Last Stent Placement:: 04/12/18 Past Psychological History: No Psychological Hx Reported Smoking Status: Never smoker Past Alcohol Use History: None Reported Past Drug Use History: None Reported - Past Family History Mother Family Medical History: No Reported History Additional Family Medical History / Comment(s): . General Exam Limitations: no limitations General appearance: alert, in no apparent distress Head exam: Present: normocephalic Eye exam: Present: normal appearance, PERRL, EOMI ENT exam: Present: normal oropharynx Neck exam: Present: normal inspection Respiratory exam: Present: normal lung sounds bilaterally Cardiovascular Exam: Present: regular rate, normal rhythm Expanded Peripheral pulses: 2+: Radial (R), Radial (L), Posterior Tibialis (R), Posterior Tibialis (L) GI/Abdominal exam: Present: soft. Absent: tenderness Extremities exam: Present: normal inspection, full ROM. Absent: tenderness, pedal edema, calf tenderness Neurological exam: Present: alert, CN II-XII intact. Absent: motor sensory deficit Psychiatric exam: Present: normal affect, normal mood Skin exam: Present: normal color Course Vital Signs 03/16/22 11:32 Temperature 96 F L Pulse Rate 55 L Respiratory 18 Rate Blood Pressure 141/86 O2 Sat by Pulse 100 Oximetry EKG Findings - EKG Comments: EKG Findings:: Sinus bradycardia 56. [place] 190. Her S1 50. QT or 65. QTC 456. Left axis. Left bundle branch block. Nonspecific ST-T. Medical Decision Making - Medical Decision Making Patient reevaluated. Patient and family updated. Discussion had regarding mental health evaluation for depression. Patient and family both refuses and requests discharge home. Patient denies any suicidal ideation. - Lab Data Result diagrams: 03/16/22 11:39 03/16/22 11:39 Lab Results 03/16/22 03/16/22 03/16/22 Range/Units 11:39 11:39 11:39 WBC 7.8 (3.8-10.6) k/uL RBC 3.23 L (4.30-5.90) m/uL Hgb 10.4 L (13.0-17.5) gm/dL Hct 31.0 L (39.0-53.0) % MCV 95.9 (80.0-100.0) fL MCH 32.0 (25.0-35.0) pg MCHC 33.4 (31.0-37.0) g/dL RDW 16.8 H (11.5-15.5) % Plt Count 173 (150-450) k/uL MPV 8.3 Neutrophils % 82 % Lymphocytes % 12 % Monocytes % 4 % Eosinophils % 1 % Basophils % 0 % Neutrophils # 6.4 (1.3-7.7) k/uL Lymphocytes # 0.9 L (1.0-4.8) k/uL Monocytes # 0.3 (0-1.0) k/uL Eosinophils # 0.1 (0-0.7) k/uL Basophils # 0.0 (0-0.2) k/uL Anisocytosis Slight Sodium 131 L (137-145) mmol/L Potassium 3.9 (3.5-5.1) mmol/L Chloride 95 L (98-107) mmol/L Carbon Dioxide 28 (22-30) mmol/L Anion Gap 8 mmol/L BUN 26 H (9-20) mg/dL Creatinine 0.78 (0.66-1.25) mg/dL Est GFR (CKD-EPI)AfAm >90 (>60 ml/min/1.73 sqM) Est GFR (CKD-EPI)NonAf 83 (>60 ml/min/1.73 sqM) Glucose 144 H (74-99) mg/dL Plasma Lactic Acid Rivas 1.7 (0.7-2.0) mmol/L Calcium 9.3 (8.4-10.2) mg/dL Phosphorus 2.4 L (2.5-4.5) mg/dL Magnesium 2.2 (1.6-2.3) mg/dL Total Bilirubin 0.5 (0.2-1.3) mg/dL AST 24 (17-59) U/L ALT 8 (4-49) U/L Alkaline Phosphatase 766 H (38-126) U/L Total Protein 6.4 (6.3-8.2) g/dL Albumin 3.9 (3.5-5.0) g/dL TSH 1.430 (0.465-4.680) mIU/L Free T4 0.83 (0.78-2.19) ng/dL Free T3 pg/mL 3.4 (2.8-5.3) pg/ml - Radiology Data Radiology results: image reviewed (Chest x-ray shows bony metastasis. No infiltrate.) Disposition Clinical Impression: Dehydration Disposition: HOME SELF-CARE Condition: Stable Instructions (If sedation given, give patient instructions): Dehydration (ED) Additional Instructions: Please encourage oral intake, especially fluids. Return for not tolerating oral intake, vomiting, increased weakness or loss of weight, worsening symptoms, depression, or other concerns. Is patient prescribed a controlled substance at d/c from ED?: No Referrals: Master Ochoa MD [Primary Care Provider] - 1-2 days Time of Disposition: 13:34
--- NOTE | 2022-03-16 12:28 | XR ---
EXAMINATION TYPE: XR chest 2V DATE OF EXAM: 03/16/2022 COMPARISON: 01/22/2022 TECHNIQUE: PA and lateral views submitted. HISTORY: Weakness FINDINGS: Diffuse osseous sclerotic changes compatible with metastases. Heart size normal. Atherosclerotic king ge aorta. Hypertrophic degenerative changes spine. No pleural effusion or pneumothorax. No focal pneu monia or interstitial edema. Vague nodularity left upper lobe. Pulmonary nodule not excluded. Hyperin flation suggests COPD. IMPRESSION: 1. Diffuse osseous metastases. Vague nodule left upper lobe. 2. No acute infiltrate. 3. COPD.
[2022-03-16 12:45] LABS: Anisocytosis Slight; Basophils % (A) 0 %; Eosinophils # (A) 0.1 k/uL (0-0.7); Eosinophils % (A) 1 %; HGB 10.4 gm/dL (13.0-17.5); Lymphocytes # (A) 0.9 k/uL (1.0-4.8); Lymphocytes % (A) 12 %; MCHC 33.4 g/dL (31.0-37.0); MCV 95.9 fL (80.0-100.0); Mean Platelet Volume 8.3; Monocytes # (A) 0.3 k/uL (0-1.0); Monocytes % (A) 4 %; Neutrophils # (A) 6.4 k/uL (1.3-7.7); Neutrophils % (A) 82 %; Platelet Count 173 k/uL (150-450); RBC 3.23 m/uL (4.30-5.90); RDW 16.8 % (11.5-15.5); WBC 7.8 k/uL (3.8-10.6)
[2022-03-16 13:05] LABS: ALT 8 U/L (4-49); AST 24 U/L (17-59); African American GFR (CKD) >90 (>60 ml/min/1.73 sqM); Albumin 3.9 g/dL (3.5-5.0); Alkaline Phosphatase 766 U/L (38-126); Anion Gap 8 mmol/L; Blood Urea Nitrogen 26 mg/dL (9-20); Calcium 9.3 mg/dL (8.4-10.2); Carbon Dioxide 28 mmol/L (22-30); Chloride 95 mmol/L (98-107); Glucose 144 mg/dL (74-99); Magnesium 2.2 mg/dL (1.6-2.3); Non-African American GFR(CKD) 83 (>60 ml/min/1.73 sqM); Phosphorus 2.4 mg/dL (2.5-4.5); Potassium 3.9 mmol/L (3.5-5.1); Sodium 131 mmol/L (137-145); Total Bilirubin 0.5 mg/dL (0.2-1.3); Total Protein 6.4 g/dL (6.3-8.2)
[2022-03-16 13:15] LABS: T4, Free (Free Thyroxine) 0.83 ng/dL (0.78-2.19)
[2022-03-16 14:12] VITALS: BP 133/74; PULSE 56
== END 2022-03-16 14:14 | disposition home or self-care (01) ==
LOC: EC 11:23
DX: E86.0 Dehydration (principal); R00.0 Tachycardia, unspecified; E11.9 Type 2 diabetes mellitus without complications; E78.5 Hyperlipidemia, unspecified; I10 Essential (primary) hypertension; I25.10 Atherosclerotic heart disease of native coronary artery without angina pectoris; Z79.899 Other long term (current) drug therapy; Z79.84 Long term (current) use of oral hypoglycemic drugs
CPT/HCPCS: 36415; 71046; 80053; 83605; 83735; 84100; 84439; 84443; 84481; 85025; 93005; 96360; 96361; 99285

== ENCOUNTER 2022-04-13 12:19 | Emergency (ER) | payer MEDICARE, BC ==
[2022-04-13 12:57] VITALS: BP 143/69; PULSE 62; RESP 20; TEMP 98.4
--- NOTE | 2022-04-13 13:26 | XR ---
EXAMINATION TYPE: XR ankle complete LT DATE OF EXAM: 04/13/2022 COMPARISON: NONE HISTORY: Pain FINDINGS: Three views of the ankle demonstrate the ankle mortise to be intact and symmetric. The joint spaces are preserved. The osseous structures are intact. Diffuse severe osteopenia. Calcaneal spur noted. Soft tissue edema. IMPRESSION: 1. No definite acute fracture or dislocation, if symptoms persist follow-up study in 7 to 10 days wou ld be suggested. 2. Mottled appearance of the medullary cavity of the distal tibia may be in the basis of severe osteo penia. No prior exam available for comparison previous bone scan demonstrated no abnormal uptake. Und erlying space occupying process difficult to exclude. MRI could be obtained.
--- NOTE | 2022-04-13 14:29 | CT ---
EXAMINATION TYPE: CT brain cspine wo con DATE OF EXAM: 04/13/2022 COMPARISON: 06/06/2020 HISTORY: Pain CT DLP: 1297.7 mGycm Automated exposure control for dose reduction was used. TECHNIQUE: CT scan of the head and cervical spine are performed without contrast. FINDINGS: There is no acute intracranial hemorrhage, mass effect, or midline shift identified. Gene ralized moderate degenerative change. Faint lucency in the white matter is nonspecific and most remot e white matter ischemia. Calvarium intact. Osseous structures appear diffusely mottled correlate for history of malignancy and metastases. Prostate cancer. Primary consideration. Cervical spine is visualized in its entirety from C1 through upper thoracic levels and demonstrates s atisfactory alignment without evidence of acute fracture or dislocation. Prevertebral soft tissue ap pears within normal limits. The C1-C2 articulation is unremarkable. Diffuse skeletal blastic metast ases noted. There is a posterior spurring at multiple levels most pronounced at C3-C4 and C6-C7. [place] ot exclude canal stenosis. Assessment spinal canal markedly limited due to artifact resolution. Suspe ct multilevel foraminal protrusion. Canal stenosis and disc bulging suspected C6-C7. Multilevel dorita inal encroachment suspected recommend follow-up MRI. Atherosclerotic change of the carotid arteries a re seen. Diffuse bony metastasis is also noted. Subpleural nodularity in pleural thickening involving the lung apices. Nodularity measures 5 mm less. Findings could be postinflammatory. IMPRESSION: 1. There is no acute fracture or dislocation evident in the cervical spine. Diffuse widespread bony m etastases involving all of the visualized osseous structures. Multilevel hypertrophic and degenerativ e changes recommend follow-up MRI to assess for canal stenosis lower cervical spine 2. No acute intracranial hemorrhage, mass effect, or midline shift is seen. Degenerative and nonspeci fic white matter changes most remote white matter ischemia.
--- NOTE | 2022-04-13 14:48 | ED ---
General Adult HPI - General Chief complaint: Extremity Injury, Lower Stated complaint: fell hurt head and L foot Time Seen by Provider: 04/13/22 13:07 Source: patient, family Mode of arrival: wheelchair Limitations: no limitations - History of Present Illness Initial comments: Dictation was produced using [employer] dictation software. please excuse any grammatical, word or spelling errors. Chief Complaint: 86-year-old male with multiple comorbidities presents for fall History of Present Illness: 86-year-old male. He presents emergency Department with his son. Patient has extensive history of medical disease including coronary artery disease, prostate cancer with metastatic lesions to the bone, dementia and parkinsonism. Last night he fell. Patient told son that he likely had slipped on a wet floor in the bathroom causing him to fall. Patient is a poor historian. Patient has a history of frequent falls. Son asked patient multiple times if he wanted to come to the emergency room yesterday. Yesterday he said no until earlier this afternoon. PHYSICAL EXAM: General Impression: Alert and oriented, not in acute distress HEENT: Normocephalic atraumatic, extra-ocular movements intact, pupils equal and reactive to light bilaterally, mucous membranes moist. Cardiovascular: Heart regular rate and rhythm Chest: Able to complete full sentences, no retractions, no tachypnea Abdomen: abdomen soft, non-tender, non-distended, no organomegaly Musculoskeletal: Pulses present and equal in all extremities, no peripheral maryana ma Left ankle: Small abrasion to medial malleolus without any gross deformity. Motor: no focal deficits noted Neurological: CN II-XII grossly intact, no focal motor or sensory deficits noted Skin: Intact with no visualized rashes Psych: Normal affect and mood ED course: 86-year-old male presents emergency Department after fall. Patient has history of frequent falls. Signs upon arrival are within acceptable limits. Medications reviewed. Patient not on any anticoagulation medications. Computed tomography scan of the head and C-spine shows no traumatic injuries. Ankle x-ray unremarkable for acute processes. There are incidental findings of bony metastatic lesions. Son at the bedside reports that this is known. Patient is well-appearing at bedside. Son reports that he appears to be at baseline. Patient to be discharged per critical presentation consistent with head contusion and left ankle sprain - Related Data Home Medications Medication Instructions Recorded Confirmed Metoprolol Tartrate [Lopressor] 25 mg PO DAILY 06/06/20 02/22/22 Nitroglycerin Sl Tabs [Nitrostat] 0.4 mg SUBLINGUAL Q5M PRN 06/06/20 02/22/22 amLODIPine BESYLATE/BENAZEPRIL 1 cap PO BID 06/06/20 02/22/22 [amLODIPine BESYLATE/BENAZEPRIL 5-10 MG] sitaGLIPtin PHOS/metFORMIN HCL 1 tab PO DAILY 02/18/21 02/22/22 [Janumet 50-500 mg Tablet] Atorvastatin Calcium [Lipitor] 80 mg PO HS 03/07/21 02/22/22 Isosorbide Mononitrate ER [Imdur] 30 mg PO DAILY 03/07/21 02/22/22 Calcium/Magnesium/Zinc 1 each PO DAILY 01/11/22 02/22/22 [Glowbxh-Lyroidzcn-Tbyl Tablet] Carbidopa-Levodopa ER 50-200Mg 1 tab PO TID 01/11/22 02/22/22 [Sinemet CR 50-200 mg] Enzalutamide [Xtandi] 160 mg PO HS 01/11/22 02/22/22 Gabapentin [Neurontin] 100 mg PO TID 01/11/22 02/22/22 Pedi Multivit No.25/Folic Acid 1 tab PO DAILY 01/11/22 02/22/22 [Flintstones Multivit Chew Tab] Previous Rx's Medication Instructions Recorded Docusate [Colace] 100 mg PO DAILY PRN #30 capsule 01/23/22 Allergies Allergy/AdvReac Type Severity Reaction Status Date / Time No Known Allergies Allergy Verified 04/13/22 12:57 Review of Systems ROS Statement: Those systems with pertinent positive or pertinent negative responses have been documented in the HPI. ROS Other: All systems not noted in ROS Statement are negative. 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 History of Any Multi-Drug Resistant Organisms: None Reported Past Surgical History: Back Surgery, Heart Catheterization With Stent Additional Past Surgical History / Comment(s): Skin CA removed from L arm; Colonoscopies. Past Anesthesia/Blood Transfusion Reactions: No Reported Reaction, Family History of Problems w/ Anesthesia Additional Past Anesthesia/Blood Transfusion Reaction / Comment(s): son states his bloodpressure dropped during surgery and he is concerned about his Dad, would like his BP monitored closely- pt may not tell you is he is not feeling well. Date of Last Stent Placement:: 04/12/18 Past Psychological History: No Psychological Hx Reported Smoking Status: Never smoker Past Alcohol Use History: None Reported Past Drug Use History: None Reported - Past Family History Mother Family Medical History: No Reported History Additional Family Medical History / Comment(s): . General Exam Limitations: no limitations Course Vital Signs 04/13/22 12:55 Temperature 98.4 F Pulse Rate 62 Respiratory 20 Rate Blood Pressure 143/69 O2 Sat by Pulse 100 Oximetry Disposition Clinical Impression: Fall Disposition: HOME SELF-CARE Condition: Fair Instructions (If sedation given, give patient instructions): Fall Prevention for Older Adults (ED) Is patient prescribed a controlled substance at d/c from ED?: No Referrals: Master Ochoa MD [Primary Care Provider] - 1-2 days Time of Disposition: 14:48
== END 2022-04-13 15:28 | disposition home or self-care (01) ==
LOC: EC 12:19
DX: M25.572 Pain in left ankle and joints of left foot (principal); E11.9 Type 2 diabetes mellitus without complications; E78.5 Hyperlipidemia, unspecified; I10 Essential (primary) hypertension; W19.XXXA Unspecified fall, initial encounter
CPT/HCPCS: 70450; 72125; 93005

== ENCOUNTER → 2022-05-24 | Outpatient (CLI) | payer MEDICARE, BC ==
--- NOTE | 2022-05-24 11:48 | XR ---
EXAMINATION TYPE: XR chest 2V DATE OF EXAM: 05/24/2022 11:12 AM COMPARISON: Chest radiographs from 03/16/2022. TECHNIQUE: XR chest 2V Frontal and lateral views of the chest. CLINICAL INDICATION:Male, 87 years old with history of C61 Malignant neoplasm prostate C79.51 Bone Me ts; FINDINGS: Lungs/Pleura: There is no evidence of pleural effusion, focal consolidation, or pneumothorax. Pulmonary vascularity: Unremarkable. Heart/mediastinum: Cardiomediastinal silhouette is unremarkable. Musculoskeletal: No acute osseous pathology. Multiple sclerotic foci throughout the bones consistent with metastatic disease. IMPRESSION: No acute cardiopulmonary disease/process.
== END | disposition home or self-care (01) ==
LOC: RADXRMAIN 10:39
PROVIDERS: ATTEND Internal Medicine Hematology & Oncology
DX: C61 Malignant neoplasm of prostate (principal); C79.51 Secondary malignant neoplasm of bone
CPT/HCPCS: 71046

== ENCOUNTER 2022-05-25 06:56 | Observation (INO) | payer MEDICARE, BC ==
[2022-05-25] MEDS ORDERED: SODIUM CHLORIDE 0.9% 1,000 ML IV STA ×2 (07:12)
--- NOTE | 2022-05-25 07:18 | ED ---
General Adult HPI - General Chief complaint: Shortness of Breath Stated complaint: LOW O2 Time Seen by Provider: 05/25/22 07:07 Source: patient, family, RN notes reviewed Mode of arrival: wheelchair Limitations: no limitations - History of Present Illness Initial comments: 87-year-old male with a history of advanced prostate cancer diabetes hypertension who is brought in by his son this morning because of some lethargy he's had decreased oral intake over last several days he's been taking his medications but not drinking very much. His blood pressure is been spiking at home but after taking his medications that seems to normalize. Patient self d enies any fevers chills nausea vomiting sweats cough phlegm production per the patient's son he has appear to be flushed over the last several days also. No other current complaints no other modifying factors no history of COPD or asthma. Of note patient did have a pulse oximetry of 62 at our triage 100% with oxygen was applied. Per his son was reportedly in the 40s at home. - Related Data Home Medications Medication Instructions Recorded Confirmed Nitroglycerin Sl Tabs [Nitrostat] 0.4 mg SUBLINGUAL Q5M PRN 06/06/20 05/25/22 amLODIPine BESYLATE/BENAZEPRIL 1 cap PO BID 06/06/20 05/25/22 [amLODIPine BESYLATE/BENAZEPRIL 5-10 MG] Atorvastatin Calcium [Lipitor] 80 mg PO HS 03/07/21 05/25/22 Isosorbide Mononitrate ER [Imdur] 30 mg PO DAILY 03/07/21 05/25/22 Carbidopa-Levodopa ER 50-200Mg 1 tab PO TID 01/11/22 05/25/22 [Sinemet CR 50-200 mg] Enzalutamide [Xtandi] 160 mg PO HS 01/11/22 05/25/22 Gabapentin [Neurontin] 100 mg PO TID 01/11/22 05/25/22 Metoprolol Tartrate [Lopressor] 50 mg PO BID 05/25/22 05/25/22 amantadine HCL [Amantadine] 100 mg PO DAILY 05/25/22 05/25/22 prednisoLONE ACETATE 1% OPHTH 1 drops RIGHT EYE QID 05/25/22 05/25/22 [Pred Forte 1%] sitaGLIPtin PHOS/metFORMIN HCL 1 tab PO DAILY 05/25/22 05/25/22 [Janumet Xr 50-1,000 mg Tablet] Allergies Allergy/AdvReac Type Severity Reaction Status Date / Time No Known Allergies Allergy Verified 05/25/22 07:14 Review of Systems ROS Statement: Those systems with pertinent positive or pertinent negative responses have been documented in the HPI. ROS Other: All systems not noted in ROS Statement are negative. 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 History of Any Multi-Drug Resistant Organisms: None Reported Past Surgical History: Back Surgery, Heart Catheterization With Stent Additional Past Surgical History / Comment(s): Skin CA removed from L arm; Colonoscopies. Past Anesthesia/Blood Transfusion Reactions: No Reported Reaction, Family History of Problems w/ Anesthesia Additional Past Anesthesia/Blood Transfusion Reaction / Comment(s): son states his bloodpressure dropped during surgery and he is concerned about his Dad, would like his BP monitored closely- pt may not tell you is he is not feeling well. Date of Last Stent Placement:: 04/12/18 Past Psychological History: No Psychological Hx Reported Smoking Status: Never smoker Past Alcohol Use History: None Reported Past Drug Use History: None Reported - Past Family History Mother Family Medical History: No Reported History Additional Family Medical History / Comment(s): . General Exam - General Exam Comments Initial Comments: This is a well-developed thin appearing male who is awake and alert oriented 4 Limitations: no limitations General appearance: alert, in no apparent distress Head exam: Present: atraumatic, normocephalic, normal inspection Eye exam: Present: normal appearance, PERRL, EOMI. Absent: scleral icterus, conjunctival injection, periorbital swelling ENT exam: Present: mucous membranes dry Neck exam: Present: normal inspection, full ROM, other. Absent: tenderness, meningismus, lymphadenopathy Respiratory exam: Present: decreased breath sounds. Absent: respiratory distre ss, wheezes, rales, rhonchi, stridor Cardiovascular Exam: Present: regular rate, normal rhythm, normal heart sounds. Absent: systolic murmur, diastolic murmur, rubs, gallop, clicks GI/Abdominal exam: Present: soft, normal bowel sounds. Absent: distended, tenderness, guarding, rebound, rigid Extremities exam: Present: normal inspection, full ROM, normal capillary refill. Absent: tenderness, pedal edema, joint swelling, calf tenderness Back exam: Present: normal inspection Neurological exam: Present: alert, oriented X3, CN II-XII intact Psychiatric exam: Present: normal affect, normal mood Skin exam: Present: warm, dry, intact, normal color. Absent: rash Course Vital Signs 05/25/22 05/25/22 05/25/22 07:11 07:19 08:30 Pulse Rate 69 64 70 Respiratory 12 18 16 Rate Blood Pressure 190/93 190/93 188/89 O2 Sat by Pulse 62 L 100 100 Oximetry 05/25/22 09:33 Pulse Rate 75 Respiratory 17 Rate Blood Pressure 176/86 O2 Sat by Pulse 96 Oximetry EKG Findings - EKG Results: EKG: interpreted by ERMD, sinus rhythm (Sinus rhythm a 72 MD interval 163 QRS duration 49 QT since QTC 420/443 interventricular conduction delay some artifact present as compared with EKG dated 04/13/22 showing similar configuration.) Medical Decision Making - Medical Decision Making I did discuss findings with patient and his son was present. Patient be admitted I did discuss case with Dr. Jaime from [facility] - Lab Data Result diagrams: 05/25/22 07:16 05/25/22 07:16 Lab Results 05/25/22 05/25/22 05/25/22 Range/Units 07:16 07:16 07:16 WBC 6.3 (3.8-10.6) k/uL RBC 3.35 L (4.30-5.90) m/uL Hgb 10.8 L (13.0-17.5) gm/dL Hct 32.0 L (39.0-53.0) % MCV 95.6 (80.0-100.0) fL MCH 32.3 (25.0-35.0) pg MCHC 33.8 (31.0-37.0) g/dL RDW 14.6 (11.5-15.5) % Plt Count 214 (150-450) k/uL MPV 8.2 Neutrophils % 71 % Lymphocytes % 20 % Monocytes % 7 % Eosinophils % 1 % Basophils % 0 % Neutrophils # 4.4 (1.3-7.7) k/uL Lymphocytes # 1.2 (1.0-4.8) k/uL Monocytes # 0.4 (0-1.0) k/uL Eosinophils # 0.1 (0-0.7) k/uL Basophils # 0.0 (0-0.2) k/uL PT 10.9 (9.0-12.0) sec INR 1.0 (<1.2) APTT 24.5 (22.0-30.0) sec D-Dimer 3.46 H (<0.60) mg/L FEU Sodium 131 L (137-145) mmol/L Potassium 3.9 (3.5-5.1) mmol/L Chloride 100 (98-107) mmol/L Carbon Dioxide 20 L (22-30) mmol/L Anion Gap 11 mmol/L BUN 35 H (9-20) mg/dL Creatinine 0.88 (0.66-1.25) mg/dL Est GFR (CKD-EPI)AfAm >90 (>60 ml/min/1.73 sqM) Est GFR (CKD-EPI)NonAf 78 (>60 ml/min/1.73 sqM) Glucose 146 H (74-99) mg/dL Plasma Lactic Acid Rivas (0.7-2.0) mmol/L Calcium 8.9 (8.4-10.2) mg/dL Magnesium 2.0 (1.6-2.3) mg/dL Total Bilirubin 0.7 (0.2-1.3) mg/dL AST 31 (17-59) U/L ALT 9 (4-49) U/L Alkaline Phosphatase 397 H (38-126) U/L Troponin I (0.000-0.034) ng/mL NT-Pro-B Natriuret Pep pg/mL Total Protein 6.4 (6.3-8.2) g/dL Albumin 4.0 (3.5-5.0) g/dL Urine Color Urine Appearance (Clear) Urine pH (5.0-8.0) Ur Specific [place] (1.001-1.035) Urine Protein (Negative) Urine Glucose (UA) (Negative) Urine Ketones (Negative) Urine Blood (Negative) Urine Nitrite (Negative) Urine Bilirubin (Negative) Urine Urobilinogen (<2.0) mg/dL Ur Leukocyte Esterase (Negative) Urine RBC (0-5) /hpf Urine WBC (0-5) /hpf Urine Mucus (None) /hpf Coronavirus (PCR) (Not Detectd) Influenza Type A RNA (Not Detectd) Influenza Type B (PCR) (Not Detectd) 05/25/22 05/25/22 05/25/22 Range/Units 07:16 07:16 07:16 WBC (3.8-10.6) k/uL RBC (4.30-5.90) m/uL Hgb (13.0-17.5) gm/dL Hct (39.0-53.0) % MCV (80.0-100.0) fL MCH (25.0-35.0) pg MCHC (31.0-37.0) g/dL RDW (11.5-15.5) % Plt Count (150-450) k/uL MPV Neutrophils % % Lymphocytes % % Monocytes % % Eosinophils % % Basophils % % Neutrophils # (1.3-7.7) k/uL Lymphocytes # (1.0-4.8) k/uL Monocytes # (0-1.0) k/uL Eosinophils # (0-0.7) k/uL Basophils # (0-0.2) k/uL PT (9.0-12.0) sec INR (<1.2) APTT (22.0-30.0) sec D-Dimer (<0.60) mg/L FEU Sodium (137-145) mmol/L Potassium (3.5-5.1) mmol/L Chloride (98-107) mmol/L Carbon Dioxide (22-30) mmol/L Anion Gap mmol/L BUN (9-20) mg/dL Creatinine (0.66-1.25) mg/dL Est GFR (CKD-EPI)AfAm (>60 ml/min/1.73 sqM) Est GFR (CKD-EPI)NonAf (>60 ml/min/1.73 sqM) Glucose (74-99) mg/dL Plasma Lactic Acid Rivas 1.6 (0.7-2.0) mmol/L Calcium (8.4-10.2) mg/dL Magnesium (1.6-2.3) mg/dL Total Bilirubin (0.2-1.3) mg/dL AST (17-59) U/L ALT (4-49) U/L Alkaline Phosphatase (38-126) U/L Troponin I <0.012 (0.000-0.034) ng/mL NT-Pro-B Natriuret Pep 6530 pg/mL Total Protein (6.3-8.2) g/dL Albumin (3.5-5.0) g/dL Urine Color Urine Appearance (Clear) Urine pH (5.0-8.0) Ur Specific [place] (1.001-1.035) Urine Protein (Negative) Urine Glucose (UA) (Negative) Urine Ketones (Negative) Urine Blood (Negative) Urine Nitrite (Negative) Urine Bilirubin (Negative) Urine Urobilinogen (<2.0) mg/dL Ur Leukocyte Esterase (Negative) Urine RBC (0-5) /hpf Urine WBC (0-5) /hpf Urine Mucus (None) /hpf Coronavirus (PCR) (Not Detectd) Influenza Type A RNA (Not Detectd) Influenza Type B (PCR) (Not Detectd) 05/25/22 05/25/22 05/25/22 Range/Units 07:16 07:27 07:27 WBC (3.8-10.6) k/uL RBC (4.30-5.90) m/uL Hgb (13.0-17.5) gm/dL Hct (39.0-53.0) % MCV (80.0-100.0) fL MCH (25.0-35.0) pg MCHC (31.0-37.0) g/dL RDW (11.5-15.5) % Plt Count (150-450) k/uL MPV Neutrophils % % Lymphocytes % % Monocytes % % Eosinophils % % Basophils % % Neutrophils # (1.3-7.7) k/uL Lymphocytes # (1.0-4.8) k/uL Monocytes # (0-1.0) k/uL Eosinophils # (0-0.7) k/uL Basophils # (0-0.2) k/uL PT (9.0-12.0) sec INR (<1.2) APTT (22.0-30.0) sec D-Dimer (<0.60) mg/L FEU Sodium (137-145) mmol/L Potassium (3.5-5.1) mmol/L Chloride (98-107) mmol/L Carbon Dioxide (22-30) mmol/L Anion Gap mmol/L BUN (9-20) mg/dL Creatinine (0.66-1.25) mg/dL Est GFR (CKD-EPI)AfAm (>60 ml/min/1.73 sqM) Est GFR (CKD-EPI)NonAf (>60 ml/min/1.73 sqM) Glucose (74-99) mg/dL Plasma Lactic Acid Rivas (0.7-2.0) mmol/L Calcium (8.4-10.2) mg/dL Magnesium (1.6-2.3) mg/dL Total Bilirubin (0.2-1.3) mg/dL AST (17-59) U/L ALT (4-49) U/L Alkaline Phosphatase (38-126) U/L Troponin I (0.000-0.034) ng/mL NT-Pro-B Natriuret Pep pg/mL Total Protein (6.3-8.2) g/dL Albumin (3.5-5.0) g/dL Urine Color Light Yellow Urine Appearance Clear (Clear) Urine pH 8.0 (5.0-8.0) Ur Specific [place] 1.010 (1.001-1.035) Urine Protein 2+ H (Negative) Urine Glucose (UA) Negative (Negative) Urine Ketones Negative (Negative) Urine Blood Negative (Negative) Urine Nitrite Negative (Negative) Urine Bilirubin Negative (Negative) Urine Urobilinogen <2.0 (<2.0) mg/dL Ur Leukocyte Esterase Negative (Negative) Urine RBC <1 (0-5) /hpf Urine WBC 1 (0-5) /hpf Urine Mucus Rare H (None) /hpf Coronavirus (PCR) Not Detected (Not Detectd) Influenza Type A RNA Not Detected (Not Detectd) Influenza Type B (PCR) Not Detected (Not Detectd) - Radiology Data Radiology results: report reviewed (Imaging reviewed no evidence of PE there is evidence of what appears be metastatic lesions in the bony structures. Please see complete report), image reviewed Disposition Clinical Impression: Hypoxemia, Dehydration, Failure to thrive Disposition: ADMITTED IP TO THIS [facility] Condition: Fair Referrals: Lance Roman MD [Primary Care Provider] - 1-2 days Decision Date: 05/25/22 Decision Time: 11:00
[2022-05-25 07:23] LABS: Basophils % (A) 0 %; Eosinophils # (A) 0.1 k/uL (0-0.7); Eosinophils % (A) 1 %; HGB 10.8 gm/dL (13.0-17.5); Lymphocytes # (A) 1.2 k/uL (1.0-4.8); Lymphocytes % (A) 20 %; MCH 32.3 pg (25.0-35.0); MCHC 33.8 g/dL (31.0-37.0); MCV 95.6 fL (80.0-100.0); Mean Platelet Volume 8.2; Monocytes # (A) 0.4 k/uL (0-1.0); Monocytes % (A) 7 %; Neutrophils # (A) 4.4 k/uL (1.3-7.7); Neutrophils % (A) 71 %; Platelet Count 214 k/uL (150-450); RBC 3.35 m/uL (4.30-5.90); RDW 14.6 % (11.5-15.5); WBC 6.3 k/uL (3.8-10.6)
[2022-05-25 07:35] LABS: ALT 9 U/L (4-49); AST 31 U/L (17-59); African American GFR (CKD) >90 (>60 ml/min/1.73 sqM); Alkaline Phosphatase 397 U/L (38-126); Anion Gap 11 mmol/L; Blood Urea Nitrogen 35 mg/dL (9-20); Calcium 8.9 mg/dL (8.4-10.2); Carbon Dioxide 20 mmol/L (22-30); Chloride 100 mmol/L (98-107); Glucose 146 mg/dL (74-99); Non-African American GFR(CKD) 78 (>60 ml/min/1.73 sqM); Potassium 3.9 mmol/L (3.5-5.1); Sodium 131 mmol/L (137-145); Total Bilirubin 0.7 mg/dL (0.2-1.3); Total Protein 6.4 g/dL (6.3-8.2)
[2022-05-25 07:38] LABS: Partial Thromboplastin Time 24.5 sec (22.0-30.0); Prothrombin Time 10.9 sec (9.0-12.0)
--- NOTE | 2022-05-25 07:51 | XR ---
EXAMINATION TYPE: XR chest 2V DATE OF EXAM: 05/25/2022 7:38 AM COMPARISON: Chest radiographs from 06/23/2022 TECHNIQUE: XR chest 2V Frontal and lateral views of the chest. CLINICAL INDICATION:Male, 87 years old with history of difficulty breathing; FINDINGS: Lungs/Pleura: There is no evidence of pleural effusion, focal consolidation, or pneumothorax. Pulmonary vascularity: Unremarkable. Heart/mediastinum: Cardiomediastinal silhouette is unremarkable. Musculoskeletal: No acute osseous pathology. IMPRESSION: No significant change without acute cardiopulmonary disease/process.
[2022-05-25 08:49] LABS: Appearance,Urine Clear (Clear); Bilirubin,Urine Negative (Negative); Blood,Urine Negative (Negative); Color,Urine Light Yellow; Glucose,Urine (UA) Negative (Negative); Ketones,Urine Negative (Negative); Leukocyte Esterase,Urine Negative (Negative); Mucus,Urine Rare /hpf; Nitrite,Urine Negative (Negative); Protein,Urine 2+ (Negative); RBC,Urine <1 /hpf (0-5); Urobilinogen,Urine <2.0 mg/dL (<2.0); WBC,Urine 1 /hpf (0-5)
--- NOTE | 2022-05-25 09:39 | CT ---
CT CHEST FOR PULMONARY EMBOLISM. EXAMINATION TYPE: CT angio chest DATE OF EXAM: 05/25/2022 INDICATION: PE Suspected CT DLP: 234.9 mGycm, Automated exposure control for dose reduction was used. CONTRAST: Patient injected with 100 ml mL of Isovue 300. COMPARISON: 03/05/2019 TECHNIQUE: CT of the chest is performed on a spiral scan at 2 mm thick sections. Study is performed with intravenous contrast timed for evaluation for pulmonary embolism. This will limit additional po rtions of the evaluation. 3-D MIP images reconstructed by the technologist are reviewed on the compu ter in the coronal and sagittal planes. FINDINGS: No persistent filling defects are evident to suggest an acute pulmonary embolism. No mediastinal or hilar adenopathy enlarged by CT criteria is evident. The ascending aorta diameter at the level of the main pulmonary artery is 3.3 cm. The main pulmonary artery diameter at the bifur cation is 2.5 cm. Mild emphysematous changes are present. Some compressive atelectasis may be within the dependent port ions of the lung bases. There is heterogenous appearance to the osseous structures suggestive for metastasis. This includes a xial spine, bilateral ribs, bilateral scapula, humerus within the field of view. Change from 03/05/[address] section through the upper abdomen are unremarkable. IMPRESSIONS: 1. No acute pulmonary embolism. 2. There are suspicious lytic areas diffusely throughout the visualized skeletal structures. Correlat e with the patient's history. Metastasis suspected.
[2022-05-25] MEDS ORDERED: NALOXONE 0.4 MG/ML 1 ML VIAL IV PRN (11:49)
[2022-05-25] MEDS ORDERED: NITROGLYCERIN SL TABS 0.4 MG TAB SUBLINGUAL PRN (11:51)
--- NOTE | 2022-05-25 12:25 | P.HPIM ---
History of Present Illness H&P Date: 05/25/22 Chief Complaint: Not feeling well and pulse ox in the 40s Patient is a 87-year-old male with a past medical history of advanced prostate cancer with metastasis to the bone, diabetes, hypertension, coronary artery disease status post stents and Parkinson's disease who was brought in by the son because at home patient reported that he was not feeling well. Son checked patient's pulse ox and he was in the 40s. In ED triage patient was found to have a pulse ox of 62. Patient was initially placed on a nonrebreather mask and his oxygenation improved. Patient also appeared dehydrated so was given some fluids. Patient had a CTA chest that was negative for PE. COVID-19 test was negative. Patient had no wheezing on exam and patient has no history of smoking. Son at bedside denied patient having any fever or chills. CTA also negative for any pneumonia. When I saw the patient he was satting comfortably on 2 L nasal cannula and did not appear to be in any respiratory distress. I removed patient's pulse ox and he was satting around 95% on room air. I was in the room for at least 15 minutes and patient's oxygen remained stable around 95%. I told son that the pulse ox readings could have been inaccurate due to poor blood circulation as patient was dehydrated when he came in. I also told son that he could've been hypoxia due to atelectasis. Son is concerned that his father has not been eating and drinking well. I explained to the son that charleen martino has multiple comorbidities which is likely contributing to his poor appetite. Son states that he has an appointment with his oncologist tomorrow. I told son to discuss with his oncologist regarding goals of care. Son is amenable to taking his father home. Overall patient's prognosis is guarded. 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 History of Any Multi-Drug Resistant Organisms: None Reported Past Surgical History: Back Surgery, Heart Catheterization With Stent Additional Past Surgical History / Comment(s): Skin CA removed from L arm; Colonoscopies. Past Anesthesia/Blood Transfusion Reactions: No Reported Reaction, Family History of Problems w/ Anesthesia Additional Past Anesthesia/Blood Transfusion Reaction / Comment(s): son states his bloodpressure dropped during surgery and he is concerned about his Dad, micah nichols like his BP monitored closely- pt may not tell you is he is not feeling well. Date of Last Stent Placement:: 04/12/18 Past Psychological History: No Psychological Hx Reported Smoking Status: Never smoker Past Alcohol Use History: None Reported Past Drug Use History: None Reported - Past Family History Mother Family Medical History: No Reported History Additional Family Medical History / Comment(s): . Medications and Allergies Home Medications Medication Instructions Recorded Confirmed Type Nitroglycerin Sl Tabs [Nitrostat] 0.4 mg SUBLINGUAL Q5M PRN 06/06/20 05/25/22 History amLODIPine BESYLATE/BENAZEPRIL 1 cap PO BID 06/06/20 05/25/22 History [amLODIPine BESYLATE/BENAZEPRIL 5-10 MG] Atorvastatin Calcium [Lipitor] 80 mg PO HS 03/07/21 05/25/22 History Isosorbide Mononitrate ER [Imdur] 30 mg PO DAILY 03/07/21 05/25/22 History Carbidopa-Levodopa ER 50-200Mg 1 tab PO TID 01/11/22 05/25/22 History [Sinemet CR 50-200 mg] Enzalutamide [Xtandi] 160 mg PO HS 01/11/22 05/25/22 History Gabapentin [Neurontin] 100 mg PO TID 01/11/22 05/25/22 History Metoprolol Tartrate [Lopressor] 50 mg PO BID 05/25/22 05/25/22 History amantadine HCL [Amantadine] 100 mg PO DAILY 05/25/22 05/25/22 History prednisoLONE ACETATE 1% OPHTH 1 drops RIGHT EYE QID 05/25/22 05/25/22 History [Pred Forte 1%] sitaGLIPtin PHOS/metFORMIN HCL 1 tab PO DAILY 05/25/22 05/25/22 History [Janumet Xr 50-1,000 mg Tablet] Allergies Allergy/AdvReac Type Severity Reaction Status Date / Time No Known Allergies Allergy Verified 05/25/22 07:14 Physical Exam Osteopathic Statement: *. No significant issues noted on an osteopathic structural exam other than those noted in the History and Physical/Consult. Vitals: Vital Signs Pulse Resp BP Pulse Ox 05/25/22 09:33 75 17 176/86 96 05/25/22 08:30 70 16 188/89 100 05/25/22 07:19 64 18 190/93 100 05/25/22 07:11 69 12 190/93 62 L Intake and Output 05/24/22 05/25/22 05/25/22 22:59 06:59 14:59 Other: Weight 54.885 kg General: [Malnourished, no acute cardiopulmonary distress]. Eye: [No lid lag, normal conjunctiva]. HENT: [Normocephalic, clear tympanic membranes, normal hearing, dry oral mucosa, no scleral icterus, no sinus tenderness]. Neck: [Supple, non-tender, no carotid bruits, no JVD, no lymphadenopathy]. Lungs: [Diminished breath sounds bilaterally, non-labored respiration]. Heart: [Normal rate, regular rhythm, no murmur, gallop or edema]. Abdomen: [Soft, non-tender, non-distended, normal bowel sounds, no masses]. Musculoskeletal: [Generalized weakness, no tenderness or swelling]. Skin: [Skin is warm, dry and pink, no rashes or lesions]. Neurologic: [Awake, alert, and oriented X1, CN II-XII intact, black feces, resting hand tremor, generalized weakness]. Psychiatric: [Pleasantly demented]. Results CBC & Chem 7: 05/25/22 07:16 05/25/22 07:16 Labs: Abnormal Lab Results - Last 24 Hours (Table) 05/25/22 05/25/22 05/25/22 Range/Units 07:16 07:16 07:16 RBC 3.35 L (4.30-5.90) m/uL Hgb 10.8 L (13.0-17.5) gm/dL Hct 32.0 L (39.0-53.0) % D-Dimer 3.46 H (<0.60) mg/L FEU Sodium 131 L (137-145) mmol/L Carbon Dioxide 20 L (22-30) mmol/L BUN 35 H (9-20) mg/dL Glucose 146 H (74-99) mg/dL Alkaline Phosphatase 397 H (38-126) U/L Urine Protein (Negative) Urine Mucus (None) /hpf 05/25/22 Range/Units 07:27 RBC (4.30-5.90) m/uL Hgb (13.0-17.5) gm/dL Hct (39.0-53.0) % D-Dimer (<0.60) mg/L FEU Sodium (137-145) mmol/L Carbon Dioxide (22-30) mmol/L BUN (9-20) mg/dL Glucose (74-99) mg/dL Alkaline Phosphatase (38-126) U/L Urine Protein 2+ H (Negative) Urine Mucus Rare H (None) /hpf Assessment and Plan Assessment: Acute hypoxia likely due to poor blood circulation and could've been a false reading versus atelectasis Prostate cancer with metastasis to the bones Parkinson's disease Coronary artery disease status post stents Hyperlipidemia Hypertension Diabetes CTA chest negative for pulmonary embolism CT chest also negative for pneumonia Also no signs or symptoms of pneumonia. Patient has no leukocytosis or fever Hypoxia has now resolved. Suspect due to poor circulation due to dehydration or atelectasis. Resume home meds We'll plan on discharging patient home
--- NOTE | 2022-05-25 12:28 | P.DS ---
Providers Expected date of discharge: 05/25/22 Primary care physician: Lance Roman Hospital Course: Hospital course: Patient is a 87-year-old male with a past medical history of advanced prostate cancer with metastasis to the bone, diabetes, hypertension, coronary artery disease status post stents and Parkinson's disease who was brought in by the son because at home patient reported that he was not feeling well. Son checked patient's pulse ox and he was in the 40s. In ED triage patient was found to have a pulse ox of 62. Patient was initially placed on a nonrebreather mask and his oxygenation improved. Patient also appeared dehydrated so was given some fluids. Patient had a CTA chest that was negative for PE. COVID-19 test was negative. Patient had no wheezing on exam and patient has no history of smoking. Son at bedside denied patient having any fever or chills. CTA also negative for any pneumonia. When I saw the patient he was satting comfortably on 2 L nasal cannula and did not appear to be in any respiratory distress. I removed patient's pulse ox and he was satting around 95% on room air. I was in the room for at least 15 minutes and patient's oxygen remained stable around 95%. I told son that the pulse ox readings could have been inaccurate due to poor blood circulation as patient was dehydrated when he came in. I also told son that he could've been hypoxia due to atelectasis. Son is concerned that his father has not been eating and drinking well. I explained to the son that patient has multiple comorbidities which is likely contributing to his poor appetite. Son states that he has an appointment with his oncologist tomorrow. I told son to discuss with his oncologist regarding goals of care. Son is amenable to taking his father home. Overall patient's prognosis is guarded. Nurse instructed to discharge patient if pulse ox remains above 92% on room air Discharge diagnosis: Acute hypoxia likely due to poor blood circulation and could've been a false reading versus atelectasis Prostate cancer with metastasis to the bones Parkinson's disease Coronary artery disease status post stents Hyperlipidemia Hypertension Diabetes A total of [33] minutes of time were spent preparing this complex discharge summary . Patient Condition at Discharge: Fair Plan - Discharge Summary New Discharge Prescriptions: Continue Nitroglycerin Sl Tabs [Nitrostat] 0.4 mg SUBLINGUAL Q5M PRN PRN Reason: Chest Pain amLODIPine BESYLATE/BENAZEPRIL [amLODIPine BESYLATE/BENAZEPRIL 5-10 MG] 1 cap PO BID Isosorbide Mononitrate ER [Imdur] 30 mg PO DAILY Atorvastatin Calcium [Lipitor] 80 mg PO HS Carbidopa-Levodopa ER 50-200Mg [Sinemet CR 50-200 mg] 1 tab PO TID Gabapentin [Neurontin] 100 mg PO TID Enzalutamide [Xtandi] 160 mg PO HS amantadine HCL [Amantadine] 100 mg PO DAILY sitaGLIPtin PHOS/metFORMIN HCL [Janumet Xr 50-1,000 mg Tablet] 1 tab PO DAILY Metoprolol Tartrate [Lopressor] 50 mg PO BID prednisoLONE ACETATE 1% OPHTH [Pred Forte 1%] 1 drops RIGHT EYE QID Discharge Medication List Nitroglycerin Sl Tabs [Nitrostat] 0.4 mg SUBLINGUAL Q5M PRN 06/06/20 [History] amLODIPine BESYLATE/BENAZEPRIL [amLODIPine BESYLATE/BENAZEPRIL 5-10 MG] 1 cap PO BID 06/06/20 [History] Atorvastatin Calcium [Lipitor] 80 mg PO HS 03/07/21 [History] Isosorbide Mononitrate ER [Imdur] 30 mg PO DAILY 03/07/21 [History] Carbidopa-Levodopa ER 50-200Mg [Sinemet CR 50-200 mg] 1 tab PO TID 01/11/22 [History] Enzalutamide [Xtandi] 160 mg PO HS 01/11/22 [History] Gabapentin [Neurontin] 100 mg PO TID 01/11/22 [History] Metoprolol Tartrate [Lopressor] 50 mg PO BID 05/25/22 [History] amantadine HCL [Amantadine] 100 mg PO DAILY 05/25/22 [History] prednisoLONE ACETATE 1% OPHTH [Pred Forte 1%] 1 drops RIGHT EYE QID 05/25/22 [History] sitaGLIPtin PHOS/metFORMIN HCL [Janumet Xr 50-1,000 mg Tablet] 1 tab PO DAILY 05/25/22 [History] Follow up Appointment(s)/Referral(s): Lance Roman MD [Primary Care Provider] - 1-2 days Discharge Disposition: HOME SELF-CARE
[2022-05-25] MEDS ORDERED: hydrALAZINE HCL 20 MG/ML 1 ML VIAL IVP STA (13:30)
[2022-05-25] MEDS: SODIUM CHLORIDE 0.9% 1,000 ML IV SCH ×2 (14:01→21:20)
[2022-05-25] MEDS: hydrALAZINE HCL 25 MG TAB PO SCH ×2 (16:52→21:23)
[2022-05-25] MEDS: CARBIDOPA-LEVODOPA ER 50-200MG 1 EACH TABLET.ER PO SCH ×2 (16:52→21:23)
[2022-05-25] MEDS: GABAPENTIN 100 MG CAP PO SCH ×2 (16:52→21:24)
[2022-05-25] MEDS: prednisoLONE ACETATE 1% OPHTH DROPS 5 ML BTL RIGHT EYE SCH ×3 (17:22→21:24)
[2022-05-25 17:54] LABS: Glucose,Whole Blood 146 mg/dL (70-110)
[2022-05-25] MEDS ORDERED: ATORVASTATIN 80 MG TAB PO SCH (21:00)
[2022-05-25] MEDS ORDERED: ENZALUTAMIDE 40 MG PO SCH (21:00)
[2022-05-25] MEDS ORDERED: NON FORMULARY DRUG (Amlodipine Besylate/Benazepril [Amlodipine Besylate/Benazepril 5-10 Mg PO SCH (21:00)
[2022-05-25 21:07] LABS: Glucose,Whole Blood 181 mg/dL (70-110)
[2022-05-25] MEDS: amLODIPine 5 MG TAB PO SCH (21:23)
[2022-05-25] MEDS ORDERED: QUEtiapine 25 MG TAB PO STA (21:24)
[2022-05-25] MEDS: METOPROLOL TARTRATE 50 MG TAB PO SCH (21:24)
[2022-05-25] MEDS: lisinopriL 10 MG TAB PO SCH (21:24)
[2022-05-26] MEDS: SODIUM CHLORIDE 0.9% 1,000 ML IV SCH ×2 (06:19→14:48)
[2022-05-26 08:12] LABS: Glucose,Whole Blood 110 mg/dL (70-110)
[2022-05-26] MEDS: GABAPENTIN 100 MG CAP PO SCH (08:53)
[2022-05-26] MEDS: CARBIDOPA-LEVODOPA ER 50-200MG 1 EACH TABLET.ER PO SCH (08:53)
[2022-05-26] MEDS: amLODIPine 5 MG TAB PO SCH (08:53)
[2022-05-26] MEDS: lisinopriL 10 MG TAB PO SCH (08:53)
[2022-05-26] MEDS: hydrALAZINE HCL 25 MG TAB PO SCH (08:54)
[2022-05-26] MEDS: prednisoLONE ACETATE 1% OPHTH DROPS 5 ML BTL RIGHT EYE SCH ×2 (08:55→14:49)
[2022-05-26] MEDS: METOPROLOL TARTRATE 50 MG TAB PO SCH (08:55)
--- NOTE | 2022-05-26 08:58 | P.CRDCN ---
History of Present Illness History of present illness: HISTORY OF PRESENTING ILLNESS This is a pleasant 87-year-old male past medical history significant for stage IV prostate cancer with metastatis to bone, type 2 diabetes, hypertension, Parkinson's disease, coronary artery disease with PCI to mid left circumflex and distal RCA in 2018, PCI PLV branch of RCA in 02/2021. He did follow in the office with Dr. Barros. We have been asked to see in consultation for chest pain. Patient seen and examined at bedside, poor historian, he is alert, oriented to person only. Unable to state why is in the hospital, does not recall having any chest pain yesterday. HPI mostly obtained from chart review. Patient presented to the emergency department for hypoxia, which was investigated and thought to be related to poor circulation and inaccuracy. Patient was also found to be dehydrated. Yesterday, prior to discharge, patient told RN he as having chest pain. His BP was checked and elevated with SBP 200s. He was given a one time hydralizine 10mg IV with improvement in BP and chest pain. His amlodipine was increased to 5mg BID and hydralazine added 25mg TID. BP improved, but elevated this morning SBP 160s-170s. DIAGNOSTICS * EKG reveals sinus rhythm, heart rate 72, left bundle branch block. Repeat EKGs and prior EKGs with similar findings. * Last Cardiac Catheterization 02/2021 revealed multi-vessel disease with patent stents in the distal RCA and also mid circumflex, critical lesion in diagonal branch is a small-caliber vessel and ostial involvement. Also moderate to severe disease in the PLV branch. Patient underwent PCI to the PLV branch of the RCA * Echocardiogram 05/2021 the office revealed EF of 4550 percent, grade 1 diasto lic dysfunction, mild mitral regurgitation, mild tricuspid regurgitation * Telemetry tracings indicate sinus rhythm * CTA of the chest revealed no acute pulmonary embolism, suspicious lytic areas diffusely throughout the visualized skeletal structures. Metastasis suspected. * Laboratory reviewed, WBC 6.3 coming in 10.8, platelets 214, d-dimer 3.46, troponin negative 2, proBNP 6530, sodium 131, potassium 3.9, BUN 35, serum creatinine 0.8 * Current home medications include atorvastatin 80 mg nightly, Imdur 30 mg daily, amlodipine 5 mg/benazepril 10 mg, metoprolol titrate 50 mg twice a day REVIEW OF SYSTEMS At the time of my exam: Review of systems not entirely accurate secondary to mental status CONSTITUTIONAL: Denies fever or chills. CARDIOVASCULAR: Denies chest pain, shortness of breath, orthopnea, PND or palpitations. RESPIRATORY: Denies cough. GASTROINTESTINAL: Denies abdominal pain, diarrhea, constipation, nausea or vomiting. MUSCULOSKELETAL: Denies myalgias. NEUROLOGIC: Denies numbness, tingling, headache or weakness. ENDOCRINE: Denies fatigue, weight change, polydipsia or polyurina. GENITOURINARY: Denies burning, hematuria or urgency with micturation. HEMATOLOGIC: Denies history of anemia or bleeding. PHYSICAL EXAMINATION Blood pressure 162/60, heart rate 67, afebrile, saturations 93% on room air CONSTITUTIONAL: No apparent distress. HEENT: Head is normocephalic. Pupils are equal, round. Sclerae anicteric. Mucous membranes of the mouth are moist. No JVD. No carotid bruit. CHEST EXAMINATION: Lungs are clear to auscultation. No chest wall tenderness is noted on palpation or with deep breathing. HEART EXAMINATION: Regular rate and rhythm. S1, S2 heard. No murmurs, gallops or rub. ABDOMEN: Soft, nontender. Positive bowel sounds. EXTREMITIES: 2+ peripheral pulses, no lower extremity edema and no calf tenderness. SKIN: warm, dry, pale NEUROLOGIC EXAMINATION: Patient is awake, confused, oriented to person ASSESSMENT Chest pain, atypical, resolved, likely related to uncontrolled hypertension Hypertensive urgency, improved Stage IV prostate cancer with metastatis to bone Type 2 diabetes Hypertension Dyslipidemia Parkinson's disease Coronary artery disease with PCI to mid left circumflex and distal RCA in 2018, PCI PLV branch of RCA in 02/2021 PLAN Obtain 2D echocardiogram and doppler study to assess cardiac structure and function. Amlodipine increased yesterday, Lisinopril 10mg BID, and hydralazine 25mg TID added yesterday Monitor BP, if continues to be elevated can consider increasing hydralazine dose If echocardiogram with no acute findings and BP improved, hopefully discharge today vs tomorrow. Follow up in the office outpatient Thank you kindly for this consultation. Nurse practitioner note has been reviewed by physician. Signing provider agrees with the documented findings, assessment, and plan of care. Past Medical History Past Medical History: Coronary Artery Disease (CAD), Cancer, Chest Pain / Angina, Diabetes Mellitus, Hyperlipidemia, Hypertension, Neurologic Disorder Additional Past Medical History / Comment(s): Hx skin Cancer., parkinson's., hx nose bleed with packing, anemia, prostate cancer with bone metastasis and mets to sternum., back pain, hx falls-has elbow and hand wounds from falling and scratches on his face., constipation., cataracts, poor vision, [place]. History of Any Multi-Drug Resistant Organisms: None Reported Past Surgical History: Back Surgery, Heart Catheterization With Stent Additional Past Surgical History / Comment(s): Skin CA removed from L arm; Colonoscopies. Past Anesthesia/Blood Transfusion Reactions: No Reported Reaction, Family History of Problems w/ Anesthesia Additional Past Anesthesia/Blood Transfusion Reaction / Comment(s): son states his bloodpressure dropped during surgery and he is concerned about his Dad, would like his BP monitored closely- pt may not tell you is he is not feeling well. Date of Last Stent Placement:: 04/12/18 Past Psychological History: No Psychological Hx Reported Smoking Status: Never smoker Past Alcohol Use History: None Reported Past Drug Use History: None Reported - Past Family History Mother Family Medical History: No Reported History Additional Family Medical History / Comment(s): . Medications and Allergies Home Medications Medication Instructions Recorded Confirmed Type Nitroglycerin Sl Tabs [Nitrostat] 0.4 mg SUBLINGUAL Q5M PRN 06/06/20 05/25/22 History amLODIPine BESYLATE/BENAZEPRIL 1 cap PO BID 06/06/20 05/25/22 History [amLODIPine BESYLATE/BENAZEPRIL 5-10 MG] Atorvastatin Calcium [Lipitor] 80 mg PO HS 03/07/21 05/25/22 History Isosorbide Mononitrate ER [Imdur] 30 mg PO DAILY 03/07/21 05/25/22 History Carbidopa-Levodopa ER 50-200Mg 1 tab PO TID 01/11/22 05/25/22 History [Sinemet CR 50-200 mg] Enzalutamide [Xtandi] 160 mg PO HS 01/11/22 05/25/22 History Gabapentin [Neurontin] 100 mg PO TID 01/11/22 05/25/22 History Metoprolol Tartrate [Lopressor] 50 mg PO BID 05/25/22 05/25/22 History amantadine HCL [Amantadine] 100 mg PO DAILY 05/25/22 05/25/22 History prednisoLONE ACETATE 1% OPHTH 1 drops RIGHT EYE QID 05/25/22 05/25/22 History [Pred Forte 1%] sitaGLIPtin PHOS/metFORMIN HCL 1 tab PO DAILY 05/25/22 05/25/22 History [Janumet Xr 50-1,000 mg Tablet] Allergies Allergy/AdvReac Type Severity Reaction Status Date / Time No Known Allergies Allergy Verified 05/25/22 07:14 Physical Exam Vitals: Vital Signs Temp Pulse Pulse Resp BP BP Pulse Ox 05/26/22 02:08 97.7 F 67 15 162/60 93 L 05/25/22 21:07 98.2 F 87 17 149/67 100 05/25/22 20:00 17 05/25/22 16:19 98.1 F 97 14 167/71 100 05/25/22 15:22 100 20 158/87 98 05/25/22 15:20 100 20 158/87 98 05/25/22 14:37 89 20 183/95 98 05/25/22 13:00 100 20 200/104 96 05/25/22 12:00 100 20 168/98 98 05/25/22 09:33 75 17 176/86 96 05/25/22 08:30 70 16 188/89 100 05/25/22 07:19 64 18 190/93 100 05/25/22 07:11 69 12 190/93 62 L Intake and Output 05/25/22 05/26/22 05/26/22 22:59 06:59 14:59 Output Total 350 Balance -350 Output: Urine 350 Other: Voiding Method External Catheter # Voids 1 Weight 54.885 kg Results 05/25/22 07:16 05/25/22 07:16 Cardiac Enzymes 05/25/22 05/25/22 05/25/22 Range/Units 07:16 07:16 13:49 AST 31 (17-59) U/L Troponin I <0.012 <0.012 (0.000-0.034) ng/mL Coagulation 05/25/22 Range/Units 07:16 PT 10.9 (9.0-12.0) sec APTT 24.5 (22.0-30.0) sec CBC 05/25/22 Range/Units 07:16 WBC 6.3 (3.8-10.6) k/uL RBC 3.35 L (4.30-5.90) m/uL Hgb 10.8 L (13.0-17.5) gm/dL Hct 32.0 L (39.0-53.0) % Plt Count 214 (150-450) k/uL Comprehensive Metabolic Panel 05/25/22 Range/Units 07:16 Sodium 131 L (137-145) mmol/L Potassium 3.9 (3.5-5.1) mmol/L Chloride 100 (98-107) mmol/L Carbon Dioxide 20 L (22-30) mmol/L BUN 35 H (9-20) mg/dL Creatinine 0.88 (0.66-1.25) mg/dL Glucose 146 H (74-99) mg/dL Calcium 8.9 (8.4-10.2) mg/dL AST 31 (17-59) U/L ALT 9 (4-49) U/L Alkaline Phosphatase 397 H (38-126) U/L Total Protein 6.4 (6.3-8.2) g/dL Albumin 4.0 (3.5-5.0) g/dL Current Medications Generic Name Dose Route Start Last Admin Trade Name Freq PRN Reason Stop Dose Admin Amantadine HCl 100 mg 05/26/22 09:00 Amantadine Hcl 100 Mg Cap PO DAILY SHANELL Amlodipine Besylate 5 mg 05/25/22 21:00 05/25/22 21:23 Amlodipine 5 Mg Tab PO 5 mg BID SHANELL Administration Atorvastatin Calcium 80 mg 05/25/22 21:00 05/25/22 21:24 Atorvastatin 80 Mg Tab PO 80 mg HS SHANELL Administration Carbidopa/Levodopa 1 each 05/25/22 16:00 05/25/22 21:23 Carbidopa-Levodopa Er 50-200mg 1 Each Tablet.Er PO 1 each TID SHANELL Administration Gabapentin 100 mg 05/25/22 16:00 05/25/22 21:24 Gabapentin 100 Mg Cap PO 100 mg TID SHANELL Administration Hydralazine HCl 25 mg 05/25/22 16:00 05/25/22 21:23 Hydralazine Hcl 25 Mg Tab PO 25 mg TID SHANELL Administration Sodium Chloride 1,000 mls @ 130 mls/hr 05/25/22 12:00 05/26/22 06:19 Saline 0.9% IV 130 mls/hr .[id number] SHANELL Administration Isosorbide Mononitrate 30 mg 05/26/22 09:00 Isosorbide Mononitrate Er 30 Mg Tab.Er.24h PO DAILY [facility] Linagliptin 5 mg 05/26/22 09:00 Linagliptin 5 Mg Tablet PO DAILY [facility] Lisinopril 10 mg 05/25/22 21:00 05/25/22 21:24 Lisinopril 10 Mg Tab PO 10 mg BID SHANELL Administration Metformin HCl 500 mg 05/26/22 09:00 Metformin 500 Mg Tab PO BID SHANELL Metoprolol Tartrate 50 mg 05/25/22 21:00 05/25/22 21:24 Metoprolol Tartrate 50 Mg Tab PO 50 mg BID SHANELL Administration Naloxone HCl 0.2 mg 05/25/22 11:49 Naloxone 0.4 Mg/Ml 1 Ml Vial IV Q2M PRN Opioid Reversal Nitroglycerin 0.4 mg 05/25/22 11:51 Nitroglycerin Sl Tabs 0.4 Mg Tab SUBLINGUAL Q5M PRN Chest Pain Enzalutamide [Xtandi 160 mg 05/25/22 21:00 05/25/22 21:21 ] 40 Mg Capsule PO 160 mg HS SHANELL Administration Prednisolone Acetate 1 drops 05/25/22 13:00 05/25/22 21:24 Prednisolone Acetate 1% Ophth Drops 5 Ml Btl RIGHT EYE 1 drops QID SHANELL Administration Intake and Output 05/25/22 05/26/22 05/26/22 22:59 06:59 14:59 Output Total 350 Balance -350 Output: Urine 350 Other: Voiding Method External Catheter # Voids 1 Weight 54.885 kg 05/25/22 07:16 05/25/22 07:16
[2022-05-26] MEDS ORDERED: metFORMIN 500 MG TAB PO SCH (09:00)
[2022-05-26] MEDS ORDERED: ISOSORBIDE MONONITRATE ER 30 MG TAB.ER.24H PO SCH (09:00)
[2022-05-26] MEDS ORDERED: LINAGLIPTIN 5 MG TABLET PO SCH (09:00)
[2022-05-26] MEDS ORDERED: ASPIRIN 81 MG PO SCH (09:00)
--- NOTE | 2022-05-26 11:17 | CA ---
Transthoracic Echo Report Name: Ranjit Lai Age: 87 Gender: M : 1935 Exam Date: 05/26/2022 08:30 Exam Location: [place] [facility] Ht (in): 65 Wt (lb): 121 Ordering Physician: Lenora Jaime MD Attending/Referring Phys: [employer] Waste Technician Lana Paul RDCS Procedure CPT: Indications: Chest Pain Cardiac Hx: Technical Quality: Fair Contrast 1: Total Dose (mL): Contrast 2: Total Dose (mL): MEASUREMENTS (Male / Female) Normal Values M-MODE Aortic Root Diameter MM 3.5 cm AV Cusp Separation MM 1.9 cm DOPPLER TR Peak Velocity 231.9 cm/s TR Peak Gradient 21.5 mmHg FINDINGS Left Ventricle Normal Left ventricular size, wall thickness, systolic function with 40-45 Right Ventricle Normal right ventricular size and function. Right Atrium Normal right atrial size. Left Atrium Normal left atrial size. Mitral Valve Structurally normal mitral valve. Mild mitral regurgitation. Aortic Valve Trileaflet aortic valve. Tricuspid Valve Structurally normal tricuspid valve. Mild tricuspid regurgitation. Pulmonic Valve Structurally normal pulmonic valve. Pericardium Normal pericardium. Aorta Normal size aortic root and proximal ascending aorta. CONCLUSIONS Technically suboptimal study secondary to poor echo windows Mild to moderate LV systolic dysfunction Mild mitral regurgitation Previewed by: Dr. Mahamed Naranjo MD (Electronically Signed) Final Date: 26 May 2022 11:16
[2022-05-26 12:05] LABS: Glucose,Whole Blood 110 mg/dL (70-110)
--- NOTE | 2022-05-26 14:20 | P.DS ---
Providers Date of admission: 05/25/22 11:49 Expected date of discharge: 05/26/22 Attending physician: Lenora Jaime MD Consults: 05/25/22 14:24 Consult Physician Routine Consulting Provider: Mahamed Naranjo Consult Reason/Comments: chest pain Do you want consulting provider notified?: Yes Primary care physician: [facility] Course: Discharge Diagnosis: Acute hypoxia likely due to poor blood circulation and could've been a false reading versus atelectasis Type II PR due to hypertension urgency Hypertension urgency Prostate cancer with metastasis to the bones Parkinson's disease Coronary artery disease status post stents Hyperlipidemia Hypertension Diabetes Hospital Course: Patient is a 87-year-old male with a past medical history of advanced prostate cancer with metastasis to the bone, diabetes, hypertension, coronary artery disease status post stents and Parkinson's disease who was brought in by the son because at home patient reported that he was not feeling well. Son checked patient's pulse ox and he was in the 40s. In ED triage patient was found to have a pulse ox of 62. Patient was initially placed on a nonrebreather mask and his oxygenation improved. Patient also appeared dehydrated so was given some fluids. Patient had a CTA chest that was negative for PE. COVID-19 test was negative. Patient had no wheezing on exam and patient has no history of smoking. Son at bedside denied patient having any fever or chills. CTA also negative for any pneumonia. When I saw the patient he was satting comfortably on 2 L nasal cannula and did not appear to be in any respiratory distress. I removed patient's pulse ox and he was satting around 95% on room air. I was in the room for at least 15 minutes and patient's oxygen remained stable around 95%. I told son that the pulse ox readings could have been inaccurate due to poor blood circulation as patient was dehydrated when he came in. I also told son that he could've been hypoxia due to atelectasis. Son is concerned that his father has not been eating and drinking well. I explained to the son that patient has multiple comorbidities which is likely contributing to his poor appetite. Son states that he has an appointment with his oncologist tomorrow. I told son to discuss with his oncologist regarding goals of care. Son is amenable to taking his father home. Overall patient's prognosis is guarded. Patient was being discharged however he then complained of chest pain and EKG showed ST depressions in the lateral leads. So I then held his discharge to trend his troponins and to be seen by cardiology. Patient at the time also had elevated blood pressure. He was given IV hydralazine. His blood pressure did improve and so did his chest pain. Patient did have a bump in his troponin of 0.137. His troponin did trend down. Patient during the remainder of his hospitalization did not have any further chest pain. The likely etiology of his elevated troponin is hypertension urgency. Patient was started on hydralazine. At the time of discharge his blood pressure improved. Also during the remainder of the hospitalization patient was satting well on room air. He was cleared for discharge by cardiology after the reviewed his echocardiogram. I told son to reschedule his appointment with his oncologist. I did have discussion with the son regarding goals of care. At this time it does not appear that the son wants to make his father comfort care. Patient seen and examined at bedside.[] Vital signs reviewed and stable. General: Well-nourished and appears chronically debilitated Derm: [warm], [dry] Head: [atraumatic], [normocephalic], [symmetric] Eyes: [EOMI], [no lid lag], [anicteric sclera] Mouth: [no lip lesion], [mucus membranes moist] Cardiovascular: [S1S2 reg], [no murmur], [positive posterior tibial pulse bilateral], Lungs: [CTA bilateral], [no rhonchi, no rales] , [no accessory muscle use] Abdominal: [soft], [ nontender to palpation], [no guarding], [no appreciable organomegaly] Ext: [no gross muscle atrophy], [no edema], [no contractures] Neuro: [ CN II-XI grossly intact], [no focal neuro deficits], black feces, resting tremor Psych: [AAOx1] lacks judgment A total of [40] minutes of time were spent preparing this complex discharge summary . Patient Condition at Discharge: Fair Plan - Discharge Summary New Discharge Prescriptions: New hydrALAZINE HCL [Apresoline] 25 mg PO TID #90 tab Aspirin 81 mg PO DAILY #30 tab Continue Nitroglycerin Sl Tabs [Nitrostat] 0.4 mg SUBLINGUAL Q5M PRN PRN Reason: Chest Pain amLODIPine BESYLATE/BENAZEPRIL [amLODIPine BESYLATE/BENAZEPRIL 5-10 MG] 1 cap PO BID Isosorbide Mononitrate ER [Imdur] 30 mg PO DAILY Atorvastatin Calcium [Lipitor] 80 mg PO HS Carbidopa-Levodopa ER 50-200Mg [Sinemet CR 50-200 mg] 1 tab PO TID Gabapentin [Neurontin] 100 mg PO TID Enzalutamide [Xtandi] 160 mg PO HS amantadine HCL [Amantadine] 100 mg PO DAILY sitaGLIPtin PHOS/metFORMIN HCL [Janumet Xr 50-1,000 mg Tablet] 1 tab PO DAILY Metoprolol Tartrate [Lopressor] 50 mg PO BID prednisoLONE ACETATE 1% OPHTH [Pred Forte 1%] 1 drops RIGHT EYE QID Discharge Medication List Nitroglycerin Sl Tabs [Nitrostat] 0.4 mg SUBLINGUAL Q5M PRN 06/06/20 [History] amLODIPine BESYLATE/BENAZEPRIL [amLODIPine BESYLATE/BENAZEPRIL 5-10 MG] 1 cap PO BID 06/06/20 [History] Atorvastatin Calcium [Lipitor] 80 mg PO HS 03/07/21 [History] Isosorbide Mononitrate ER [Imdur] 30 mg PO DAILY 03/07/21 [History] Carbidopa-Levodopa ER 50-200Mg [Sinemet CR 50-200 mg] 1 tab PO TID 01/11/22 [History] Enzalutamide [Xtandi] 160 mg PO HS 01/11/22 [History] Gabapentin [Neurontin] 100 mg PO TID 01/11/22 [History] Metoprolol Tartrate [Lopressor] 50 mg PO BID 05/25/22 [History] amantadine HCL [Amantadine] 100 mg PO DAILY 05/25/22 [History] prednisoLONE ACETATE 1% OPHTH [Pred Forte 1%] 1 drops RIGHT EYE QID 05/25/22 [History] sitaGLIPtin PHOS/metFORMIN HCL [Janumet Xr 50-1,000 mg Tablet] 1 tab PO DAILY 05/25/22 [History] Aspirin 81 mg PO DAILY #30 tab 05/26/22 [Rx] hydrALAZINE HCL [Apresoline] 25 mg PO TID #90 tab 05/26/22 [Rx] Follow up Appointment(s)/Referral(s): Lance Roman MD [Primary Care Provider] - 1-2 days Mahamed Naranjo MD [STAFF PHYSICIAN] - 1 Week Discharge Disposition: HOME WITH HOME HEALTH SERVICES
[2022-05-26 15:23] VITALS: BP 144/55; PULSE 62; RESP 18; TEMP 97.7
== END 2022-05-26 15:35 | disposition home health service (06) ==
LOC: EC 06:56 → 6NMEDSUR 11:49
PROVIDERS: ADMIT Internal Medicine; ATTEND Internal Medicine
DX: R09.02 Hypoxemia (principal); E86.0 Dehydration; R62.7 Adult failure to thrive; R07.89 Other chest pain; I21.A1 Myocardial infarction type 2; I16.0 Hypertensive urgency; E11.9 Type 2 diabetes mellitus without complications; I10 Essential (primary) hypertension; G20 Parkinson's disease; I25.10 Atherosclerotic heart disease of native coronary artery without angina pectoris; E78.5 Hyperlipidemia, unspecified; Z85.46 Personal history of malignant neoplasm of prostate; Z85.828 Personal history of other malignant neoplasm of skin; Z85.830 Personal history of malignant neoplasm of bone; Z79.84 Long term (current) use of oral hypoglycemic drugs; Z79.899 Other long term (current) drug therapy; Z95.5 Presence of coronary angioplasty implant and graft; Z20.822 Contact with and (suspected) exposure to COVID-19
CPT/HCPCS: 96374; 99285; 36415; 93005; 93306; 85379; 83880; 80053; 83605; 83735; 84484 ×2; 85025; 85610; 85730; 81001; 87502; 87635; 71046; 71275; G0378 ×2; J0360; Q9967

== ENCOUNTER → 2022-06-11 | Outpatient (CLI) | payer MEDICARE, BC ==
--- NOTE | 2022-06-11 13:03 | MR ---
MRI brain and IACs with contrast. HISTORY: Hearing loss. COMPARISON: None. TECHNIQUE: Multiecho multiplanar images of the brain were obtained with and without contrast. High-re solution imaging through the posterior fossa was also obtained. FINDINGS: The examination is limited secondary to involuntary patient motion. In particular, evaluation promotions intern al auditory canals is limited for small lesions due to motion artifact. On the T1-weighted sagittal i mages midline structures including the craniovertebral junction relationships appear normal. The ventricles, basal cisterns and sulci over the convexities are markedly enlarged consistent with m arked generalized atrophy. There few scattered areas of abnormal increased signal intensity in the white matter both cerebral he mispheres consistent with chronic ischemic white matter demyelination. Based on diffusion-weighted imaging, there is no diffusion restriction or acute ischemic event. Following contrast administration, there is no pathological enhancement throughout the brain parenchy ma. The posterior fossa including the brainstem, fourth ventricle, cerebellar pontine angles and internal auditory canals and contents appear normal and symmetric and there is no pathological enhancement. T he intraorbital contents appear normal and symmetric. Visualized paranasal sinuses are well aerated. There is mild fluid in the left mastoid air cells. IMPRESSION: 1. Limited study due to involuntary patient motion. 2. Marked generalized atrophy. 3. No acute ischemic event, mass affect or shift of midline structures. 4. Mild fluid in the left mastoid air cells. 5. No definite abnormality of the posterior fossa including the cerebellar pontine angles and interna l auditory canals.
== END | disposition home or self-care (01) ==
LOC: RADMRIMAIN 08:50
PROVIDERS: ATTEND Psychiatry & Neurology Neurology
DX: G31.9 Degenerative disease of nervous system, unspecified (principal); H90.5 Unspecified sensorineural hearing loss
CPT/HCPCS: 70553; A9585

== ENCOUNTER 2022-06-24 15:40 | Inpatient (IN) | payer MEDICARE, BC ==
--- NOTE | 2022-06-24 16:01 | ED ---
General Adult HPI - General Chief complaint: Recheck/Abnormal Lab/Rx Stated complaint: Med reaction Time Seen by Provider: 06/24/22 15:50 Source: EMS Mode of arrival: EMS Limitations: no limitations - History of Present Illness Initial comments: 87-year-old male with past medical history of metastatic prostate cancer, parkinsonian dementia who presents to the emergency department with altered mental status. Son is at bedside who cares for him and provides majority of the history. States that he recently had a medication change by Dr. Luz. He was on Sinemet and recently the dose was used and the patient was started on amantadine. States that this medication change has caused him to have alteration in his mentation. He is extremely tremulous, confused with hallucinations. Previously he used to be able to ambulate with his walker however patient is too weak to get out of bed. He has sustained multiple falls over the past week causing several skin tears to his bilateral forearms. Patient also hit his head. He spoke with Dr. Luz who agreed to return him to his previous medications however this change only happened yesterday. Son denies that the patient has had any fevers or vomiting. Does have poor oral intake. HPI is limited as the patient's current mental status - Related Data Home Medications Medication Instructions Recorded Confirmed Nitroglycerin Sl Tabs [Nitrostat] 0.4 mg SUBLINGUAL Q5M PRN 06/06/20 06/24/22 amLODIPine BESYLATE/BENAZEPRIL 1 cap PO BID 06/06/20 06/24/22 [amLODIPine BESYLATE/BENAZEPRIL 5-10 MG] Atorvastatin Calcium [Lipitor] 80 mg PO HS 03/07/21 06/24/22 Isosorbide Mononitrate ER [Imdur] 30 mg PO DAILY 03/07/21 06/24/22 Carbidopa-Levodopa ER 50-200Mg 1 tab PO TID 01/11/22 06/24/22 [Sinemet CR 50-200 mg] Enzalutamide [Xtandi] 160 mg PO HS 01/11/22 06/24/22 Gabapentin [Neurontin] 100 mg PO TID 01/11/22 06/24/22 sitaGLIPtin PHOS/metFORMIN HCL 0.5 tab PO BID 05/25/22 06/24/22 [Janumet Xr 50-1,000 mg Tablet] Carboxymethylcellulos/Glycerin 1 drop BOTH EYES 5XD PRN 06/24/22 06/24/22 [Refresh Relieva 0.5-0.9% Drop] DULoxetine HCL [Cymbalta] 20 mg PO DIRECTED 06/24/22 06/24/22 Metoprolol Tartrate [Lopressor] 25 mg PO BID 06/24/22 06/24/22 Previous Rx's Medication Instructions Recorded Aspirin 81 mg PO DAILY #30 tab 05/26/22 hydrALAZINE HCL [Apresoline] 25 mg PO TID #90 tab 05/26/22 Allergies Allergy/AdvReac Type Severity Reaction Status Date / Time No Known Allergies Allergy Verified 06/24/22 18:51 Review of Systems ROS Statement: Those systems with pertinent positive or pertinent negative responses have been documented in the HPI. ROS Other: All systems not noted in ROS Statement are negative. 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 History of Any Multi-Drug Resistant Organisms: None Reported Past Surgical History: Back Surgery, Heart Catheterization With Stent Additional Past Surgical History / Comment(s): Skin CA removed from L arm; Colonoscopies. Past Anesthesia/Blood Transfusion Reactions: No Reported Reaction, Family History of Problems w/ Anesthesia Additional Past Anesthesia/Blood Transfusion Reaction / Comment(s): son states his bloodpressure dropped during surgery and he is concerned about his Dad, would like his BP monitored closely- pt may not tell you is he is not feeling well. Date of Last Stent Placement:: 04/12/18 Past Psychological History: No Psychological Hx Reported Smoking Status: Never smoker Past Alcohol Use History: None Reported Past Drug Use History: None Reported - Past Family History Mother Family Medical History: No Reported History Additional Family Medical History / Comment(s): . General Exam Limitations: altered mental status General appearance: lethargic, cachectic, other (tremulous, jerking) Head exam: Present: atraumatic, normocephalic, normal inspection ENT exam: Present: mucous membranes dry Respiratory exam: Present: normal lung sounds bilaterally. Absent: respiratory distress, wheezes, rales, rhonchi, stridor Cardiovascular Exam: Present: regular rate, normal rhythm, normal heart sounds. Absent: systolic murmur, diastolic murmur, rubs, gallop, clicks GI/Abdominal exam: Present: soft, other (scaphoid) Extremities exam: Present: other (contactured extremities. lower leg atrophy) Neurological exam: Present: altered Psychiatric exam: Present: other (will answer yes/no to few questions) Skin exam: Present: warm, dry Course Vital Signs 06/24/22 06/24/22 15:43 20:02 Temperature 98.0 F 97.6 F Pulse Rate 72 77 Respiratory 20 19 Rate Blood Pressure 131/75 161/80 O2 Sat by Pulse 95 93 L Oximetry EKG Findings - EKG Comments: EKG Findings:: EKG demonstrates a sinus rhythm with a rate of 69. NV interval 171. QRS 165. QTC of 476. No acute ST segment elevations or depressions Medical Decision Making - Medical Decision Making Upon arrival the patient was placed into room 7. A thorough history and physical exam was performed. IV is established. As the patient does look clinically dry he is given a liter of fluid. Laboratory studies are conducted and reviewed. Sodium is 118. Lactic acid 3.7. BNP 22,300. Serum osmole 260. Chest x-ray demonstrates a very edema. CT of the head and cervical spine demonstrates cerebral rash a few with no acute process. Pelvic x-ray completed due to fall with osteo-blastic metastatic disease which is unchanged. Right forearm demonstrates osteoblastic changes. These results are discussed with the patient's son. I did call and speak with Dr. Pineda. He does request that the patient be placed on 50 mL of normal saline per hour. One dose of Lasix may be given. Repeat BMP for 5 AM. Edward catheter is placed and the patient does bullard ve some urinary retention of 500 mL. Patient will be admitted to [facility]. Spoke with Dr. Sher who agreed to admission. - Lab Data Result diagrams: 06/30/22 07:28 06/30/22 07:28 Lab Results 06/24/22 06/24/22 06/24/22 Range/Units 17:09 17:09 17:09 WBC 12.6 H (3.8-10.6) k/uL RBC 2.83 L (4.30-5.90) m/uL Hgb 9.2 L D (13.0-17.5) gm/dL Hct 25.6 L (39.0-53.0) % MCV 90.2 D (80.0-100.0) fL MCH 32.4 (25.0-35.0) pg MCHC 36.0 (31.0-37.0) g/dL RDW 13.8 (11.5-15.5) % Plt Count 186 (150-450) k/uL MPV 8.7 Neutrophils % 92 % Lymphocytes % 4 % Monocytes % 4 % Eosinophils % 0 % Basophils % 0 % Neutrophils # 11.5 H (1.3-7.7) k/uL Lymphocytes # 0.5 L (1.0-4.8) k/uL Monocytes # 0.5 (0-1.0) k/uL Eosinophils # 0.0 (0-0.7) k/uL Basophils # 0.0 (0-0.2) k/uL PT 11.2 (9.0-12.0) sec INR 1.0 (<1.2) APTT 26.0 (22.0-30.0) sec Sodium 118 L* (137-145) mmol/L Potassium 4.5 (3.5-5.1) mmol/L Chloride 87 L (98-107) mmol/L Carbon Dioxide 21 L (22-30) mmol/L Anion Gap 10 mmol/L BUN 31 H (9-20) mg/dL Creatinine 0.67 (0.66-1.25) mg/dL Est GFR (CKD-EPI)AfAm >90 (>60 ml/min/1.73 sqM) Est GFR (CKD-EPI)NonAf 87 (>60 ml/min/1.73 sqM) Glucose 137 H (74-99) mg/dL Osmolality (280-301) mosm/kg Lactic Ac Sepsis Rflx Plasma Lactic Acid Rivas (0.7-2.0) mmol/L Calcium 8.1 L (8.4-10.2) mg/dL Total Bilirubin 1.0 (0.2-1.3) mg/dL AST 54 (17-59) U/L ALT 17 (4-49) U/L Alkaline Phosphatase 283 H (38-126) U/L Ammonia (<30) umol/L Creatine Kinase 486 H (55-170) U/L Troponin I (0.000-0.034) ng/mL NT-Pro-B Natriuret Pep pg/mL Total Protein 5.2 L (6.3-8.2) g/dL Albumin 3.1 L (3.5-5.0) g/dL Urine Color Urine Appearance (Clear) Urine pH (5.0-8.0) Ur Specific [place] (1.001-1.035) Urine Protein (Negative) Urine Glucose (UA) (Negative) Urine Ketones (Negative) Urine Blood (Negative) Urine Nitrite (Negative) Urine Bilirubin (Negative) Urine Urobilinogen (<2.0) mg/dL Ur Leukocyte Esterase (Negative) Urine RBC (0-5) /hpf Urine WBC (0-5) /hpf Amorphous Sediment (None) /hpf Urine Mucus (None) /hpf Urine Osmolality (50-1400) mosm/kg Ur Random Creatinine mg/dL Ur Random Sodium (40-220) mmol/L 06/24/22 06/24/22 06/24/22 Range/Units 17:09 17:09 17:09 WBC (3.8-10.6) k/uL RBC (4.30-5.90) m/uL Hgb (13.0-17.5) gm/dL Hct (39.0-53.0) % MCV (80.0-100.0) fL MCH (25.0-35.0) pg MCHC (31.0-37.0) g/dL RDW (11.5-15.5) % Plt Count (150-450) k/uL MPV Neutrophils % % Lymphocytes % % Monocytes % % Eosinophils % % Basophils % % Neutrophils # (1.3-7.7) k/uL Lymphocytes # (1.0-4.8) k/uL Monocytes # (0-1.0) k/uL Eosinophils # (0-0.7) k/uL Basophils # (0-0.2) k/uL PT (9.0-12.0) sec INR (<1.2) APTT (22.0-30.0) sec Sodium (137-145) mmol/L Potassium (3.5-5.1) mmol/L Chloride (98-107) mmol/L Carbon Dioxide (22-30) mmol/L Anion Gap mmol/L BUN (9-20) mg/dL Creatinine (0.66-1.25) mg/dL Est GFR (CKD-EPI)AfAm (>60 ml/min/1.73 sqM) Est GFR (CKD-EPI)NonAf (>60 ml/min/1.73 sqM) Glucose (74-99) mg/dL Osmolality 260 L (280-301) mosm/kg Lactic Ac Sepsis Rflx Plasma Lactic Acid [place]ivas 3.7 H* (0.7-2.0) mmol/L Calcium (8.4-10.2) mg/dL Total Bilirubin (0.2-1.3) mg/dL AST (17-59) U/L ALT (4-49) U/L Alkaline Phosphatase (38-126) U/L Ammonia <9 (<30) umol/L Creatine Kinase (55-170) U/L Troponin I 0.014 (0.000-0.034) ng/mL NT-Pro-B Natriuret Pep pg/mL Total Protein (6.3-8.2) g/dL Albumin (3.5-5.0) g/dL Urine Color Urine Appearance (Clear) Urine pH (5.0-8.0) Ur Specific [place] (1.001-1.035) Urine Protein (Negative) Urine Glucose (UA) (Negative) Urine Ketones (Negative) Urine Blood (Negative) Urine Nitrite (Negative) Urine Bilirubin (Negative) Urine Urobilinogen (<2.0) mg/dL Ur Leukocyte Esterase (Negative) Urine RBC (0-5) /hpf Urine WBC (0-5) /hpf Amorphous Sediment (None) /hpf Urine Mucus (None) /hpf Urine Osmolality (50-1400) mosm/kg Ur Random Creatinine mg/dL Ur Random Sodium (40-220) mmol/L 06/24/22 06/24/22 06/24/22 Range/Units 17:09 17:48 19:00 WBC (3.8-10.6) k/uL RBC (4.30-5.90) m/uL Hgb (13.0-17.5) gm/dL Hct (39.0-53.0) % MCV (80.0-100.0) fL MCH (25.0-35.0) pg MCHC (31.0-37.0) g/dL RDW (11.5-15.5) % Plt Count (150-450) k/uL MPV Neutrophils % % Lymphocytes % % Monocytes % % Eosinophils % % Basophils % % Neutrophils # (1.3-7.7) k/uL Lymphocytes # (1.0-4.8) k/uL Monocytes # (0-1.0) k/uL Eosinophils # (0-0.7) k/uL Basophils # (0-0.2) k/uL PT (9.0-12.0) sec INR (<1.2) APTT (22.0-30.0) sec Sodium (137-145) mmol/L Potassium (3.5-5.1) mmol/L Chloride (98-107) mmol/L Carbon Dioxide (22-30) mmol/L Anion Gap mmol/L BUN (9-20) mg/dL Creatinine (0.66-1.25) mg/dL Est GFR (CKD-EPI)AfAm (>60 ml/min/1.73 sqM) Est GFR (CKD-EPI)NonAf (>60 ml/min/1.73 sqM) Glucose (74-99) mg/dL Osmolality (280-301) mosm/kg Lactic Ac Sepsis Rflx Y Plasma Lactic Acid [place] (0.7-2.0) mmol/L Calcium (8.4-10.2) mg/dL Total Bilirubin (0.2-1.3) mg/dL AST (17-59) U/L ALT (4-49) U/L Alkaline Phosphatase (38-126) U/L Ammonia (<30) umol/L Creatine Kinase (55-170) U/L Troponin I (0.000-0.034) ng/mL NT-Pro-B Natriuret Pep 18228 pg/mL Total Protein (6.3-8.2) g/dL Albumin (3.5-5.0) g/dL Urine Color Yellow Urine Appearance Clear (Clear) Urine pH 8.0 (5.0-8.0) Ur Specific [place] 1.020 (1.001-1.035) Urine Protein 3+ H (Negative) Urine Glucose (UA) Trace H (Negative) Urine Ketones Negative (Negative) Urine Blood Negative (Negative) Urine Nitrite Negative (Negative) Urine Bilirubin Negative (Negative) Urine Urobilinogen 2.0 (<2.0) mg/dL Ur Leukocyte Esterase Negative (Negative) Urine RBC 2 (0-5) /hpf Urine WBC <1 (0-5) /hpf Amorphous Sediment Rare H (None) /hpf Urine Mucus Rare H (None) /hpf Urine Osmolality (50-1400) mosm/kg Ur Random Creatinine mg/dL Ur Random Sodium (40-220) mmol/L 06/24/22 06/24/22 06/24/22 Range/Units 19:00 19:00 19:00 WBC (3.8-10.6) k/uL RBC (4.30-5.90) m/uL Hgb (13.0-17.5) gm/dL Hct (39.0-53.0) % MCV (80.0-100.0) fL MCH (25.0-35.0) pg MCHC (31.0-37.0) g/dL RDW (11.5-15.5) % Plt Count (150-450) k/uL MPV Neutrophils % % Lymphocytes % % Monocytes % % Eosinophils % % Basophils % % Neutrophils # (1.3-7.7) k/uL Lymphocytes # (1.0-4.8) k/uL Monocytes # (0-1.0) k/uL Eosinophils # (0-0.7) k/uL Basophils # (0-0.2) k/uL PT (9.0-12.0) sec INR (<1.2) APTT (22.0-30.0) sec Sodium (137-145) mmol/L Potassium (3.5-5.1) mmol/L Chloride (98-107) mmol/L Carbon Dioxide (22-30) mmol/L Anion Gap mmol/L BUN (9-20) mg/dL Creatinine (0.66-1.25) mg/dL Est GFR (CKD-EPI)AfAm (>60 ml/min/1.73 sqM) Est GFR (CKD-EPI)NonAf (>60 ml/min/1.73 sqM) Glucose (74-99) mg/dL Osmolality (280-301) mosm/kg Lactic Ac Sepsis Rflx Plasma Lactic Acid Rivas (0.7-2.0) mmol/L Calcium (8.4-10.2) mg/dL Total Bilirubin (0.2-1.3) mg/dL AST (17-59) U/L ALT (4-49) U/L Alkaline Phosphatase (38-126) U/L Ammonia (<30) umol/L Creatine Kinase (55-170) U/L Troponin I (0.000-0.034) ng/mL NT-Pro-B Natriuret Pep pg/mL Total Protein (6.3-8.2) g/dL Albumin (3.5-5.0) g/dL Urine Color Urine Appearance (Clear) Urine pH (5.0-8.0) Ur Specific [place] (1.001-1.035) Urine Protein (Negative) Urine Glucose (UA) (Negative) Urine Ketones (Negative) Urine Blood (Negative) Urine Nitrite (Negative) Urine Bilirubin (Negative) Urine Urobilinogen (<2.0) mg/dL Ur Leukocyte Esterase (Negative) Urine RBC (0-5) /hpf Urine WBC (0-5) /hpf Amorphous Sediment (None) /hpf Urine Mucus (None) /hpf Urine Osmolality 554 (50-1400) mosm/kg Ur Random Creatinine 80.8 mg/dL Ur Random Sodium <20 L (40-220) mmol/L Critical Care Time Critical Care Time: Yes Critical Care Time: 32 minutes for consultation with nephrology for severe hyponatremia. Multiple re-evaluations. Son updated who has large goals of care for father Disposition Clinical Impression: Acute encephalopathy, Acute hyponatremia, Dehydration Disposition: ADMITTED IP TO THIS [facility] Condition: Serious Is patient prescribed a controlled substance at d/c from ED?: No Time of Disposition: 20:06 Decision to Admit Reason: Admit from EC Decision Date: 06/24/22 Decision Time: 20:06
[2022-06-24 17:21] LABS: Basophils % (A) 0 %; Eosinophils % (A) 0 %; HCT 25.6 % (39.0-53.0); Lymphocytes # (A) 0.5 k/uL (1.0-4.8); Lymphocytes % (A) 4 %; MCH 32.4 pg (25.0-35.0); Mean Platelet Volume 8.7; Monocytes # (A) 0.5 k/uL (0-1.0); Monocytes % (A) 4 %; Neutrophils # (A) 11.5 k/uL (1.3-7.7); Neutrophils % (A) 92 %; Platelet Count 186 k/uL (150-450); RBC 2.83 m/uL (4.30-5.90); RDW 13.8 % (11.5-15.5); WBC 12.6 k/uL (3.8-10.6)
[2022-06-24 17:35] LABS: Prothrombin Time 11.2 sec (9.0-12.0)
[2022-06-24 17:36] LABS: HGB 9.2 gm/dL (13.0-17.5); MCV 90.2 fL (80.0-100.0)
[2022-06-24 17:47] LABS: ALT 17 U/L (4-49); AST 54 U/L (17-59); African American GFR (CKD) >90 (>60 ml/min/1.73 sqM); Albumin 3.1 g/dL (3.5-5.0); Alkaline Phosphatase 283 U/L (38-126); Anion Gap 10 mmol/L; Blood Urea Nitrogen 31 mg/dL (9-20); Calcium 8.1 mg/dL (8.4-10.2); Carbon Dioxide 21 mmol/L (22-30); Chloride 87 mmol/L (98-107); Creatine Kinase 486 U/L (55-170); Glucose 137 mg/dL (74-99); Non-African American GFR(CKD) 87 (>60 ml/min/1.73 sqM); Potassium 4.5 mmol/L (3.5-5.1); Total Protein 5.2 g/dL (6.3-8.2)
[2022-06-24 17:48] LABS: Lactic Acid, Venous 3.7 mmol/L (0.7-2.0)
[2022-06-24 17:50] LABS: Sodium 118 mmol/L (137-145)
[2022-06-24] MEDS ORDERED: SODIUM CHLORIDE 0.9% 1,000 ML IV ONE (17:58)
--- NOTE | 2022-06-24 18:06 | CT ---
EXAMINATION TYPE: CT brain cspine wo con DATE OF EXAM: 06/24/2022 COMPARISON: 04/13/2022 HISTORY: ams CT DLP: 1466.4 mGycm Automated exposure control for dose reduction was used. There is diffuse cerebral cortical atrophy. There is no mass effect or midline shift. No sign of intr acranial hemorrhage. The calvarium is intact. Cervical vertebrae are normal alignment. Posterior elements are intact. There is diffuse osteolytic a nd osteoblastic changes in the cervical spine. No cervical compression fracture. Cervical disc spaces are fairly normal. IMPRESSION: Cerebral atrophy. No acute intracranial abnormality. Minor cervical spondylotic changes. Diffuse osteolytic and osteoblastic metastatic disease. No change compared to old exam.
--- NOTE | 2022-06-24 18:09 | XR ---
EXAMINATION TYPE: XR pelvis AP view DATE OF EXAM: 06/24/2022 COMPARISON: NONE HISTORY: Fall. Pain TECHNIQUE: Single view FINDINGS: The pelvic ring is intact. No evidence of hip fracture. Acetabula appear intact. There is e xtensive osteoblastic changes in the bony pelvis. IMPRESSION: Osteoblastic metastatic disease without change compared to CT scan 11/26/2021. No fracture .
--- NOTE | 2022-06-24 18:36 | XR ---
EXAMINATION TYPE: XR chest 2V DATE OF EXAM: 06/24/2022 COMPARISON: 05/25/2022 HISTORY: Hypoxemia TECHNIQUE: 2 views FINDINGS: Heart is normal. There is pulmonary interstitial and airspace edema. There are no hilar mas ses. Thoracic ureter is atheromatous. There is blunting of the costophrenic angles. There are osteoblastic changes in the bony thorax. IMPRESSION: There is pulmonary edema and pleural fluid that could be heart failure and pneumonia whic h is mostly new compared to last exam. Osteoblastic changes in the bony thorax.
--- NOTE | 2022-06-24 18:37 | XR ---
EXAMINATION TYPE: XR forearm RT DATE OF EXAM: 06/24/2022 COMPARISON: NONE HISTORY: Fall. Pain TECHNIQUE: 2 view FINDINGS: There is some osteoblastic changes in the radius and ulna. No fracture seen. Elbow joint is intact. IMPRESSION: Osteoblastic changes. No fracture.
[2022-06-24] MEDS ORDERED: LIDOCAINE 2% URO-JET JELLY 5 ML KIT URETHRAL ONE (19:30)
[2022-06-24] MEDS ORDERED: NALOXONE 0.4 MG/ML 1 ML VIAL IV PRN (20:06)
[2022-06-24 20:12] LABS: Amorphous Sediment,Urine Rare /hpf; Appearance,Urine Clear (Clear); Bilirubin,Urine Negative (Negative); Blood,Urine Negative (Negative); Color,Urine Yellow; Glucose,Urine (UA) Trace (Negative); Ketones,Urine Negative (Negative); Leukocyte Esterase,Urine Negative (Negative); Mucus,Urine Rare /hpf; Nitrite,Urine Negative (Negative); Protein,Urine 3+ (Negative); RBC,Urine 2 /hpf (0-5); WBC,Urine <1 /hpf (0-5)
[2022-06-24] MEDS ORDERED: SODIUM CHLORIDE 0.9% 1,000 ML IV SCH (20:15)
[2022-06-24] MEDS ORDERED: FUROSEMIDE 10 MG/ML 4 ML VIAL IV STA (20:44)
[2022-06-24] MEDS ORDERED: ARTIFICIAL TEARS-HYPROMELLOSE DROPS 15 ML BTL BOTH EYES PRN (21:32)
[2022-06-24] MEDS: CARBIDOPA-LEVODOPA ER 50-200MG 1 EACH TABLET.ER PO SCH (23:41)
[2022-06-24] MEDS: GABAPENTIN 100 MG CAP PO SCH (23:41)
[2022-06-24] MEDS: METOPROLOL TARTRATE 25 MG TAB PO SCH (23:41)
[2022-06-24] MEDS: NON FORMULARY DRUG (Enzalutamide [Xtandi] 40 MG Capsule) PO SCH (23:42)
[2022-06-25 01:01] LABS: African American GFR (CKD) >90 (>60 ml/min/1.73 sqM); Anion Gap 10 mmol/L; Blood Urea Nitrogen 30 mg/dL (9-20); Calcium 7.8 mg/dL (8.4-10.2); Carbon Dioxide 21 mmol/L (22-30); Chloride 91 mmol/L (98-107); Glucose 143 mg/dL (74-99); Non-African American GFR(CKD) 82 (>60 ml/min/1.73 sqM); Potassium 3.9 mmol/L (3.5-5.1); Sodium 122 mmol/L (137-145)
--- NOTE | 2022-06-25 03:30 | P.HPIM ---
History of Present Illness H&P Date: 06/24/22 The patient is an 87-year-old male with a PMH of metastatic prostate cancer, Parkinson's disease, type II DM, hypertension, coronary artery disease who was brought into the emergency room by his son for altered mental status and failure to thrive. History was obtained from the ED physician and from the sound at the bedside. As per the son, the patient who has been on Sinemet for several years recently had it discontinued by Dr. Luz and started on amantadine. The son reports that ever since the medication change, his father has not been quite himself. He reports that the patient has now developed worsening tremors and has been increasingly confused and refusing to eat or drink much. At baseline, he reports that his father is oriented 3 and was able to use his walker to amb ulate throughout the house and get himself out of bed and seat himself on the toilet. He reports that since the medication change, the patient is also suffered several falls leading to the bruising over his arms. The patient was not answering any questions appropriately. Head/cervical spine CT in the emergency room was consistent with metastatic osteoblastic disease. Pelvis x- ray also unremarkable aside from stable metastatic disease. Chest x-ray revealed pulmonary edema and pleural fluid, possible CHF. Right forearm x-ray was unremarkable. EKG reveals sinus rhythm with left axis deviation a 69 bpm with a left bundle branch block. Laboratory evaluation was remarkable for sodium 118, chloride 87, lactic acid 3.7, proBNP 22,300, with WBC count 12.6 and hemoglobin 9.2. Review of systems: Unable to assess due to mental status Physical examination: General: Chronically ill-appearing thin male, tremulous, appears at stated age Derm: Bilateral bruising overlying forearms, warm Head: atraumatic, normocephalic, symmetric Eyes: EOMI, no lid lag, anicteric sclera, pupils equal round reactive to light ENT: Nose and ears atraumatic Neck: No cervical lymphadenopathy, trachea midline, supple Mouth: no lip lesion, mucus membranes dry Cardiovascular: S1S2 reg, no murmur, positive dorsalis pedis pulse bilateral, no edema Lungs: Scattered rhonchi without wheezing or rales, no accessory muscle use Abdominal: soft, nontender to palpation, no guarding Ext: no gross muscle atrophy, no contractures Neuro: no gross focal neuro deficits, unable to fully assess since patient not following directions, moving all extremities Psych: Following basic directions, not answering any questions Assessment/plan Severe hyponatremia, hypochloremic and hypo-osmolar -Suspect secondary to poor oral salt intake -Continue gentle IV hydration with normal saline -Nephrology consult -Monitor BMP every 3-4 hours -Avoid overcorrection with goal correction less than 12 in 24 hours next Altered mental status, possibly secondary to severe hyponatremia versus worsening Parkinson's -Neurology consulted -Resume patient's Sinemet -Swallow evaluation Lactic acidosis -Gentle IV hydration and monitor for resolution Chronic conditions: Type II DM, coronary artery disease, stage IV prostate cancer -Continue with home meds -Insulin sliding scale with blood glucose monitoring DVT prophylaxis -Heparin subq The patient is admitted with an anticipated greater than 2 midnight stay for evaluation of AMS CODE STATUS: Full Code Discussed with: Son Anticipated discharge date: 3-[address]: Home Past Medical History Past Medical History: Coronary Artery Disease (CAD), Cancer, Chest Pain / Angina, Diabetes Mellitus, Hyperlipidemia, Hypertension, Neurologic Disorder Additional Past Medical History / Comment(s): Hx skin Cancer., parkinson's., hx nose bleed with packing, anemia, prostate cancer with bone metastasis and mets to sternum., back pain, hx falls-has elbow and hand wounds from falling and s cratches on his face., constipation., cataracts, poor vision, [id number]. History of Any Multi-Drug Resistant Organisms: None Reported Past Surgical History: Back Surgery, Heart Catheterization With Stent Additional Past Surgical History / Comment(s): Skin CA removed from L arm; Colonoscopies. Past Anesthesia/Blood Transfusion Reactions: No Reported Reaction, Family History of Problems w/ Anesthesia Additional Past Anesthesia/Blood Transfusion Reaction / Comment(s): son states his bloodpressure dropped during surgery and he is concerned about his Dad, would like his BP monitored closely- pt may not tell you is he is not feeling well. Date of Last Stent Placement:: 04/12/18 Past Psychological History: No Psychological Hx Reported Smoking Status: Never smoker Past Alcohol Use History: None Reported Past Drug Use History: None Reported - Past Family History Mother Family Medical History: Cancer Additional Family Medical History / Comment(s): . Medications and Allergies Home Medications Medication Instructions Recorded Confirmed Type Nitroglycerin Sl Tabs [Nitrostat] 0.4 mg SUBLINGUAL Q5M PRN 06/06/20 06/24/22 H istory amLODIPine BESYLATE/BENAZEPRIL 1 cap PO BID 06/06/20 06/24/22 History [amLODIPine BESYLATE/BENAZEPRIL 5-10 MG] Atorvastatin Calcium [Lipitor] 80 mg PO HS 03/07/21 06/24/22 History Isosorbide Mononitrate ER [Imdur] 30 mg PO DAILY 03/07/21 06/24/22 History Carbidopa-Levodopa ER 50-200Mg 1 tab PO TID 01/11/22 06/24/22 History [Sinemet CR 50-200 mg] Enzalutamide [Xtandi] 160 mg PO HS 01/11/22 06/24/22 History Gabapentin [Neurontin] 100 mg PO TID 01/11/22 06/24/22 History sitaGLIPtin PHOS/metFORMIN HCL 0.5 tab PO BID 05/25/22 06/24/22 History [Janumet Xr 50-1,000 mg Tablet] Aspirin 81 mg PO DAILY #30 tab 05/26/22 06/24/22 Rx hydrALAZINE HCL [Apresoline] 25 mg PO TID #90 tab 05/26/22 06/24/22 Rx Carboxymethylcellulos/Glycerin 1 drop BOTH EYES 5XD PRN 06/24/22 06/24/22 History [Refresh Relieva 0.5-0.9% Drop] DULoxetine HCL [Cymbalta] 20 mg PO DIRECTED 06/24/22 06/24/22 History Metoprolol Tartrate [Lopressor] 25 mg PO BID 06/24/22 06/24/22 History Allergies Allergy/AdvReac Type Severity Reaction Status Date / Time No Known Allergies Allergy Verified 06/24/22 18:51 Physical Exam Vitals: Vital Signs Temp Pulse Resp BP Pulse Ox 06/24/22 20:02 97.6 F 77 19 161/80 93 L 06/24/22 15:43 98.0 F 72 20 131/75 95 Intake and Output 06/24/22 06/24/22 06/24/22 06:59 14:59 22:59 Other: Weight 56.245 kg Results CBC & Chem 7: 06/24/22 17:09 10/21/22 23:57 Labs: Abnormal Lab Results - Last 24 Hours (Table) 06/24/22 06/24/22 06/24/22 Range/Units 17:09 17:09 17:09 WBC 12.6 H (3.8-10.6) k/uL RBC 2.83 L (4.30-5.90) m/uL Hgb 9.2 L D (13.0-17.5) gm/dL Hct 25.6 L (39.0-53.0) % Neutrophils # 11.5 H (1.3-7.7) k/uL Lymphocytes # 0.5 L (1.0-4.8) k/uL Sodium 118 L* (137-145) mmol/L Chloride 87 L (98-107) mmol/L Carbon Dioxide 21 L (22-30) mmol/L BUN 31 H (9-20) mg/dL Glucose 137 H (74-99) mg/dL Osmolality (280-301) mosm/kg Plasma Lactic Acid Rivas 3.7 H* (0.7-2.0) mmol/L Calcium 8.1 L (8.4-10.2) mg/dL Alkaline Phosphatase 283 H (38-126) U/L Creatine Kinase 486 H (55-170) U/L Total Protein 5.2 L (6.3-8.2) g/dL Albumin 3.1 L (3.5-5.0) g/dL Urine Protein (Negative) Urine Glucose (UA) (Negative) Amorphous Sediment (None) /hpf Urine Mucus (None) /hpf 06/24/22 06/24/22 Range/Units 17:09 19:00 WBC (3.8-10.6) k/uL RBC (4.30-5.90) m/uL Hgb (13.0-17.5) gm/dL Hct (39.0-53.0) % Neutrophils # (1.3-7.7) k/uL Lymphocytes # (1.0-4.8) k/uL Sodium (137-145) mmol/L Chloride (98-107) mmol/L Carbon Dioxide (22-30) mmol/L BUN (9-20) mg/dL Glucose (74-99) mg/dL Osmolality 260 L (280-301) mosm/kg Plasma Lactic Acid Rivas (0.7-2.0) mmol/L Calcium (8.4-10.2) mg/dL Alkaline Phosphatase (38-126) U/L Creatine Kinase (55-170) U/L Total Protein (6.3-8.2) g/dL Albumin (3.5-5.0) g/dL Urine Protein 3+ H (Negative) Urine Glucose (UA) Trace H (Negative) Amorphous Sediment Rare H (None) /hpf Urine Mucus Rare H (None) /hpf
[2022-06-25 03:44] LABS: African American GFR (CKD) >90 (>60 ml/min/1.73 sqM); Anion Gap 8 mmol/L; Blood Urea Nitrogen 31 mg/dL (9-20); Calcium 7.4 mg/dL (8.4-10.2); Carbon Dioxide 22 mmol/L (22-30); Chloride 90 mmol/L (98-107); Glucose 155 mg/dL (74-99); Non-African American GFR(CKD) 80 (>60 ml/min/1.73 sqM); Sodium 120 mmol/L (137-145)
[2022-06-25 06:06] LABS: Glucose,Whole Blood 302 mg/dL (70-110)
[2022-06-25] MEDS ORDERED: FUROSEMIDE 10 MG/ML 4 ML VIAL ONE (06:08)
[2022-06-25] MEDS ORDERED: FUROSEMIDE 10 MG/ML 4 ML VIAL IV STA (06:10)
[2022-06-25] MEDS: INSULIN ASPART (NovoLOG) 100 UNIT/ML VIAL SQ SCH ×4 (06:48→20:28)
--- NOTE | 2022-06-25 11:32 | P.NPCON ---
History of Present Illness - Reason for Consult hyponatremia - History of Present Illness Reason for consultation: Hyponatremia History of present illness: Patient is a 87-year-old male seen in consultation for hyponatremia. Patient presented to the hospital with altered mental status. Patient is currently resting in bed and is on BiPAP. Son is present at bedside and provides the history. The son states that patient's medications for Parkinson's were changed and patient's condition has progressively declined. He is more lethargic and is also having jerking. Oral intake has been very poor but he has been drinking 3- 4 ensures daily. Patient does have history of diabetes. Denies family history of renal disease. Sodium level was 118 on admission and he did receive 1 L normal saline bolus in the ER. He was started on normal saline at 50 mL an hour and also received a dose of IV Lasix last night. This morning patient became short of breath and IV fluids were discontinued. He received 40 mg of IV Lasix this morning. Sodium level this morning was up to 123. Edward catheter was placed for urinary retention. Nonoliguric. Denies use of nonsteroidals. Patient does have history of prostate cancer with metastatic disease. He also has history of coronary artery disease with cardiac stenting. Vital signs are stable. General: Resting in bed. HEENT: Head exam is unremarkable. On BiPAP. LUNGS: Breath sounds decreased. HEART: Rate and Rhythm are regular. ABDOMEN: Soft, no distention. EXTREMITITES: Trace edema. 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 History of Any Multi-Drug Resistant Organisms: None Reported Past Surgical History: Back Surgery, Heart Catheterization With Stent Additional Past Surgical History / Comment(s): Skin CA removed from L arm; Colonoscopies. Past Anesthesia/Blood Transfusion Reactions: No Reported Reaction, Family History of Problems w/ Anesthesia Additional Past Anesthesia/Blood Transfusion Reaction / Comment(s): son states his bloodpressure dropped during surgery and he is concerned about his Dad, would like his BP monitored closely- pt may not tell you is he is not feeling well. Date of Last Stent Placement:: 04/12/18 Past Psychological History: No Psychological Hx Reported Smoking Status: Never smoker Past Alcohol Use History: None Reported Past Drug Use History: None Reported - Past Family History Mother Family Medical History: Cancer Additional Family Medical History / Comment(s): . Medications and Allergies Home Medications Medication Instructions Recorded Confirmed Type Nitroglycerin Sl Tabs [Nitrostat] 0.4 mg SUBLINGUAL Q5M PRN 06/06/20 06/24/22 History amLODIPine BESYLATE/BENAZEPRIL 1 cap PO BID 06/06/20 06/24/22 History [amLODIPine BESYLATE/BENAZEPRIL 5-10 MG] Atorvastatin Calcium [Lipitor] 80 mg PO HS 03/07/21 06/24/22 History Isosorbide Mononitrate ER [Imdur] 30 mg PO DAILY 03/07/21 06/24/22 History Carbidopa-Levodopa ER 50-200Mg 1 tab PO TID 01/11/22 06/24/22 History [Sinemet CR 50-200 mg] Enzalutamide [Xtandi] 160 mg PO HS 01/11/22 06/24/22 History Gabapentin [Neurontin] 100 mg PO TID 01/11/22 06/24/22 History sitaGLIPtin PHOS/metFORMIN HCL 0.5 tab PO BID 05/25/22 06/24/22 History [Janumet Xr 50-1,000 mg Tablet] Aspirin 81 mg PO DAILY #30 tab 05/26/22 06/24/22 Rx hydrALAZINE HCL [Apresoline] 25 mg PO TID #90 tab 05/26/22 06/24/22 Rx Carboxymethylcellulos/Glycerin 1 drop BOTH EYES 5XD PRN 06/24/22 06/24/22 History [Refresh Relieva 0.5-0.9% Drop] DULoxetine HCL [Cymbalta] 20 mg PO DIRECTED 06/24/22 06/24/22 History Metoprolol Tartrate [Lopressor] 25 mg PO BID 06/24/22 06/24/22 History Allergies Allergy/AdvReac Type Severity Reaction Status Date / Time No Known Allergies Allergy Verified 06/24/22 18:51 Physical Exam Vitals: Vital Signs Temp Pulse Pulse Resp BP BP Pulse Ox 06/25/22 09:17 97 30 H 06/25/22 08:37 06/25/22 07:45 97.8 F 97 30 H 159/76 100 06/25/22 07:18 22 170/81 99 06/25/22 06:25 06/25/22 06:21 93 L 06/25/22 06:11 06/25/22 06:09 26 H 80 L 06/25/22 06:06 78 L 06/25/22 04:00 98.5 F 80 18 157/67 92 L 06/25/22 00:00 97.5 F L 82 14 168/73 92 L 06/24/22 21:58 99.1 F 78 18 149/92 85 L 06/24/22 20:02 97.6 F 77 19 161/80 93 L 06/24/22 15:43 98.0 F 72 20 131/75 95 FiO2 06/25/22 09:17 06/25/22 08:37 80 06/25/22 07:45 100 06/25/22 07:18 06/25/22 06:25 100 06/25/22 06:21 06/25/22 06:11 100 06/25/22 06:09 06/25/22 06:06 06/25/22 04:00 06/25/22 00:00 06/24/22 21:58 06/24/22 20:02 06/24/22 15:43 Intake and Output 06/24/22 06/25/22 06/25/22 22:59 06:59 14:59 Intake Total 10 Output Total 820 Balance -820 10 Intake: IV 10 Invasive Line 1 10 Output: Urine 820 Other: Voiding Method Indwelling Catheter Indwelling Catheter Indwelling Catheter Weight 56.245 kg 66 kg 66 kg Results - Lab Results Most recent lab results Calcium 7.4 mg/dL (8.4-10.2) L 06/25/22 03:12 06/24/22 17:09 06/25/22 07:50 Assessment and Plan Plan: assessment: 1. Hyponatremia from poor solute intake. Hypervolemic. Improving. Did receive 2 doses 5 Lasix this admission. Sodium level 123 this morning. Urine sodium pending. Urine osmolality 554. 2. Acute hypoxic respiratory failure secondary to volume overload. 3. Prostate cancer with metastatic disease. 4. Benign hypertension. 5. Diabetes mellitus. 6. Parkinson's disease. Neurology following. 7. Urinary retention. Edward catheter placed. Plan: Encouraged oral intake. 1200 mL fluid restriction. Add IV Lasix 20 mg twice daily. Repeat sodium level this evening. Check TSH. Follow-up urine sodium. Add Flomax. Check renal ultrasound. Thank you for the consultation. I will continue to follow the patient with you during his hospital stay.
[2022-06-25 11:39] LABS: Glucose,Whole Blood 132 mg/dL (70-110)
[2022-06-25] MEDS: HEPARIN SODIUM,PORCINE/PF 5,000 UNIT/0.5 ML SYRINGE SQ SCH ×2 (12:08→17:52)
[2022-06-25] MEDS: FUROSEMIDE 10 MG/ML 2 ML VIAL IV SCH ×2 (12:19→20:46)
--- NOTE | 2022-06-25 13:07 | US ---
EXAMINATION TYPE: US kidneys/renal and bladder DATE OF EXAM: 06/25/2022 COMPARISON: CT abdomen and pelvis November 26, 2021 CLINICAL HISTORY: audrey. EXAM MEASUREMENTS: Right Kidney: 9.3 x 4.2 x 4.3 cm Left Kidney: not seen Incoherent patient with extensive bone metastasis, unable to cooperate or move. RN and tech unable to move patient to see left kidney due to patients pain. Right Kidney: limited visualization, inferior pole obscured by overlying bowel gas, upper pole shows small cysts Left Kidney: not visualized Bladder: Edward Right Pleural effusion noted. Markedly suboptimal study as detailed above. Increased cortical echogenicity right kidney. No gross r ight-sided hydronephrosis. Edward catheter decompresses bladder. IMPRESSION: Suboptimal study. No gross right-sided hydronephrosis.
--- NOTE | 2022-06-25 13:22 | P.PN ---
Subjective Progress Note Date: 06/25/22 Patient is seen today, lying down in bed, requiring BiPAP. Not interactive with exam. Gen: Asleep, comfortable HEENT: normocephalic, atraumatic, good hearing acuity, moist mucous membranes Resp: good air exchange, breathing comfortably with no accessory muscle use, bilateral crackles CVS: good distal perfusion x 4, regular rate and rhythm GI: soft, NTTP, ND : no SPT, no CVAT, fitch catheter is present MSK: Present pitting edema, no clubbing Neuro: non-focal, moving all extremities Psych: cooperative, euthymic mood Assessment/plan: Severe hyponatremia, hypervolemic Acute on chronic systolic Heart Failure Exacerbation, EF is mildly to moderately reduced per Echo on 05/26/22 -Fluid restriction, diuresis -Nephrology consult -Monitor BMP every 3-4 hours -Avoid overcorrection with goal correction less than 12 in 24 hours next Altered mental status, possibly secondary to severe hyponatremia versus worsening Parkinson's -Neurology consulted -Resume patient's Sinemet -Swallow evaluation Chronic conditions: Type II DM, coronary artery disease, stage IV prostate cancer -Continue with home meds -Insulin sliding scale with blood glucose monitoring DVT prophylaxis -Heparin subq CODE STATUS: Full Code Anticipated discharge date: 3-[address]: Home Objective - Vital Signs Vital signs: Vital Signs Temp 98.1 F 06/25/22 11:54 Pulse 84 06/25/22 11:54 Resp 30 H 06/25/22 11:54 BP 147/71 06/25/22 11:54 Pulse Ox 98 06/25/22 11:54 FiO2 60 06/25/22 12:07 Intake & Output 06/24/22 06/25/22 06/25/22 18:59 06:59 18:59 Intake Total 10 Output Total 820 Balance -820 10 Weight 56.245 kg 66 kg 66 kg Intake: IV 10 Invasive Line 1 10 Output: Urine 820 Other: Voiding Method Indwelling Catheter Indwelling Catheter - Labs CBC & Chem 7: 06/24/22 17:09 06/25/22 07:50 Labs: Abnormal Lab Results - Last 24 Hours (Table) 06/24/22 06/24/22 06/24/22 Range/Units 17:09 17:09 17:09 WBC 12.6 H (3.8-10.6) k/uL RBC 2.83 L (4.30-5.90) m/uL Hgb 9.2 L D (13.0-17.5) gm/dL Hct 25.6 L (39.0-53.0) % Neutrophils # 11.5 H (1.3-7.7) k/uL Lymphocytes # 0.5 L (1.0-4.8) k/uL Sodium 118 L* (137-145) mmol/L Chloride 87 L (98-107) mmol/L Carbon Dioxide 21 L (22-30) mmol/L BUN 31 H (9-20) mg/dL Glucose 137 H (74-99) mg/dL POC Glucose (mg/dL) (70-110) mg/dL Osmolality (280-301) mosm/kg Plasma Lactic Acid Rivas 3.7 H* (0.7-2.0) mmol/L Calcium 8.1 L (8.4-10.2) mg/dL Alkaline Phosphatase 283 H (38-126) U/L Creatine Kinase 486 H (55-170) U/L Total Protein 5.2 L (6.3-8.2) g/dL Albumin 3.1 L (3.5-5.0) g/dL Urine Protein (Negative) Urine Glucose (UA) (Negative) Amorphous Sediment (None) /hpf Urine Mucus (None) /hpf 06/24/22 06/24/22 06/24/22 Range/Units 17:09 19:00 20:54 WBC (3.8-10.6) k/uL RBC (4.30-5.90) m/uL Hgb (13.0-17.5) gm/dL Hct (39.0-53.0) % Neutrophils # (1.3-7.7) k/uL Lymphocytes # (1.0-4.8) k/uL Sodium (137-145) mmol/L Chloride (98-107) mmol/L Carbon Dioxide (22-30) mmol/L BUN (9-20) mg/dL Glucose (74-99) mg/dL POC Glucose (mg/dL) (70-110) mg/dL Osmolality 260 L (280-301) mosm/kg Plasma Lactic Acid Rivas 2.3 H* (0.7-2.0) mmol/L Calcium (8.4-10.2) mg/dL Alkaline Phosphatase (38-126) U/L Creatine Kinase (55-170) U/L Total Protein (6.3-8.2) g/dL Albumin (3.5-5.0) g/dL Urine Protein 3+ H (Negative) Urine Glucose (UA) Trace H (Negative) Amorphous Sediment Rare H (None) /hpf Urine Mucus Rare H (None) /hpf 06/24/22 06/24/22 06/25/22 Range/Units 23:57 23:57 03:12 WBC (3.8-10.6) k/uL RBC (4.30-5.90) m/uL Hgb (13.0-17.5) gm/dL Hct (39.0-53.0) % Neutrophils # (1.3-7.7) k/uL Lymphocytes # (1.0-4.8) k/uL Sodium 122 L 120 L (137-145) mmol/L Chloride 91 L 90 L (98-107) mmol/L Carbon Dioxide 21 L (22-30) mmol/L BUN 30 H 31 H (9-20) mg/dL Glucose 143 H 155 H (74-99) mg/dL POC Glucose (mg/dL) (70-110) mg/dL Osmolality (280-301) mosm/kg Plasma Lactic Acid Rivas 2.8 H* (0.7-2.0) mmol/L Calcium 7.8 L 7.4 L (8.4-10.2) mg/dL Alkaline Phosphatase (38-126) U/L Creatine Kinase (55-170) U/L Total Protein (6.3-8.2) g/dL Albumin (3.5-5.0) g/dL Urine Protein (Negative) Urine Glucose (UA) (Negative) Amorphous Sediment (None) /hpf Urine Mucus (None) /hpf 06/25/22 06/25/22 06/25/22 Range/Units 06:04 07:50 11:37 WBC (3.8-10.6) k/uL RBC (4.30-5.90) m/uL Hgb (13.0-17.5) gm/dL Hct (39.0-53.0) % Neutrophils # (1.3-7.7) k/uL Lymphocytes # (1.0-4.8) k/uL Sodium 123 L (137-145) mmol/L Chloride (98-107) mmol/L Carbon Dioxide (22-30) mmol/L BUN (9-20) mg/dL Glucose (74-99) mg/dL POC Glucose (mg/dL) 302 H 132 H (70-110) mg/dL Osmolality (280-301) mosm/kg Plasma Lactic Acid Rivas (0.7-2.0) mmol/L Calcium (8.4-10.2) mg/dL Alkaline Phosphatase (38-126) U/L Creatine Kinase (55-170) U/L Total Protein (6.3-8.2) g/dL Albumin (3.5-5.0) g/dL Urine Protein (Negative) Urine Glucose (UA) (Negative) Amorphous Sediment (None) /hpf Urine Mucus (None) /hpf
--- NOTE | 2022-06-25 14:31 | P.CNNES ---
History of Present Illness Consult date: 06/25/22 Requesting physician: Racquel Earl Reason for Consult: acute encephalopathy, parkinsons, recent med changes History of Present Illness: Patient is a 87-year-old male with history of Parkinson's disease, metastatic prostate cancer, came to the hospital by ambulance yesterday at 3:40 PM for worsening mental status and twitching. Patient's aunt was present, who provided with a history. Patient has been having falls lately. He has developed worsening mental status, with myoclonic type twitching/spasms. Patient's aunt states that patient was diagnosed with Parkinson's about 10 years ago. It has been getting worse. Patient's aunt states that he has not been talking lately. Patient has prostate cancer with metastasis to the bones. Patient's son does not want him to take pain medications, as he was told that pain medications can decrease respiratory drive. Apparently patient was recently started on amanta dine and the symptoms got worse. Patient has developed acute pulmonary edema since 6 AM today he has been started on Lasix. Patient is not able to take anything by mouth because of altered mentation. Patient is not able to take his chemotherapeutic pill because of risk of aspiration. Patient's son wants him to be a full code despite advanced cancer. Patient's son believes that his dad will stay alive longer, as patient's mother just on 04/16/2022 at age 104. Speech therapist has been consulted. Patient is completely disoriented. Patient's aunt mentions that he is not able to walk by himself. Patient's and uses now bedside commode for him. EMS flow sheet not available in the chart. Vital signs revealed blood pressure 131/75, pulse rate 72 temperature 98.0. Blood test shows a CBC 12.6 hemoglobin 9.2, platelets 186. PT/PTT normal. Sodium 118, potassium 4.5, renal functions normal. Hepatic panel normal. Ammonia is <9, troponin is negative. UA is negative. Plasma lactate 3.7. Calcium 7.8. CT head showed cerebral atrophy. No acute process. Minor cervical spondylitic changes. Diffuse osteophytic an osteoblastic metastatic disease. No change compared to old exam. Chest x-ray showed pulmonary edema and pleural fluid that could be heart failure and pneu monia. Osteoblastic changes in the bony thorax. Pelvic x-ray showed osteoblastic metastatic disease without change compared to computed tomography scan 11/26/2021. No fracture. EKG shows sinus rhythm. Left axis deviation. Patient's recent MRI of the brain with and without contrast on 06/11/2022 showed limited study due to involuntary patient motion. Marked generalized atrophy. No acute ischemic event, mass effect or shift of midline structure. Mild forward in the left mastoid air cells. Review of Systems ROS unobtainable: due to mental status Past Medical History Past Medical History: Coronary Artery Disease (CAD), Cancer, Chest Pain / Angina, Diabetes Mellitus, Hyperlipidemia, Hypertension, Neurologic Disorder Additional Past Medical History / Comment(s): Hx skin Cancer., parkinson's., hx nose bleed with packing, anemia, prostate cancer with bone metastasis and mets to sternum., back pain, hx falls-has elbow and hand wounds from falling and scratches on his face., constipation., cataracts, poor vision, ALUTIIQ. History of Any Multi-Drug Resistant Organisms: None Reported Past Surgical History: Back Surgery, Heart Catheterization With Stent Additional Past Surgical History / Comment(s): Skin CA removed from L arm; Colonoscopies. Past Anesthesia/Blood Transfusion Reactions: No Reported Reaction, Family History of Problems w/ Anesthesia Additional Past Anesthesia/Blood Transfusion Reaction / Comment(s): son states his bloodpressure dropped during surgery and he is concerned about his Dad, would like his BP monitored closely- pt may not tell you is he is not feeling well. Date of Last Stent Placement:: 04/12/18 Past Psychological History: No Psychological Hx Reported Smoking Status: Never smoker Past Alcohol Use History: None Reported Past Drug Use History: None Reported - Past Family History Mother Family Medical History: Cancer Additional Family Medical History / Comment(s): . Medications and Allergies Home Medications Medication Instructions Recorded Confirmed Type Nitroglycerin Sl Tabs [Nitrostat] 0.4 mg SUBLINGUAL Q5M PRN 06/06/20 06/24/22 History amLODIPine BESYLATE/BENAZEPRIL 1 cap PO BID 06/06/20 06/24/22 History [amLODIPine BESYLATE/BENAZEPRIL 5-10 MG] Atorvastatin Calcium [Lipitor] 80 mg PO HS 03/07/21 06/24/22 History Isosorbide Mononitrate ER [Imdur] 30 mg PO DAILY 03/07/21 06/24/22 History Carbidopa-Levodopa ER 50-200Mg 1 tab PO TID 01/11/22 06/24/22 History [Sinemet CR 50-200 mg] Enzalutamide [Xtandi] 160 mg PO HS 01/11/22 06/24/22 History Gabapentin [Neurontin] 100 mg PO TID 01/11/22 06/24/22 History sitaGLIPtin PHOS/metFORMIN HCL 0.5 tab PO BID 05/25/22 06/24/22 History [Janumet Xr 50-1,000 mg Tablet] Aspirin 81 mg PO DAILY #30 tab 05/26/22 06/24/22 Rx hydrALAZINE HCL [Apresoline] 25 mg PO TID #90 tab 05/26/22 06/24/22 Rx Carboxymethylcellulos/Glycerin 1 drop BOTH EYES 5XD PRN 06/24/22 06/24/22 History [Refresh Relieva 0.5-0.9% Drop] DULoxetine HCL [Cymbalta] 20 mg PO DIRECTED 06/24/22 06/24/22 History Metoprolol Tartrate [Lopressor] 25 mg PO BID 06/24/22 06/24/22 History Allergies Allergy/AdvReac Type Severity Reaction Status Date / Time No Known Allergies Allergy Verified 06/24/22 18:51 Physical Examination - Vital Signs Vital Signs: Vital Signs Temp Pulse Pulse Resp BP BP Pulse Ox 06/25/22 09:17 97 30 H 06/25/22 08:37 06/25/22 07:45 97.8 F 97 30 H 159/76 100 06/25/22 07:18 22 170/81 99 06/25/22 06:25 06/25/22 06:21 93 L 06/25/22 06:11 06/25/22 06:09 26 H 80 L 06/25/22 06:06 78 L 06/25/22 04:00 98.5 F 80 18 157/67 92 L 06/25/22 00:00 97.5 F L 82 14 168/73 92 L 06/24/22 21:58 99.1 F 78 18 149/92 85 L 06/24/22 20:02 97.6 F 77 19 161/80 93 L 06/24/22 15:43 98.0 F 72 20 131/75 95 FiO2 06/25/22 09:17 06/25/22 08:37 80 06/25/22 07:45 100 06/25/22 07:18 06/25/22 06:25 100 06/25/22 06:21 06/25/22 06:11 100 06/25/22 06:09 06/25/22 06:06 06/25/22 04:00 06/25/22 00:00 06/24/22 21:58 06/24/22 20:02 06/24/22 15:43 Intake and Output 06/24/22 06/25/22 06/25/22 22:59 06:59 14:59 Intake Total 10 Output Total 820 Balance -820 10 Intake: IV 10 Invasive Line 1 10 Output: Urine 820 Other: Voiding Method Indwelling Catheter Indwelling Catheter Indwelling Catheter Weight 56.245 kg 66 kg 66 kg Patient is an elderly male, appears to be in respiratory distress, on BiPAP. Patient is obtunded. He does open his eyes briefly to calling his name loudly, but then closes it. He did not answer to any question, partly because of being on BiPAP. Patient's aunt states that he has not been speaking much. Attention, concentration and fund of knowledge cannot be assessed because of mental status. On cranial nerve examination, pupils are equal, round and reacting to light, visual steward could not be tested, as he keeps his eyes closed. Gaze is midline. He did move his eyes to the sides. Face and lower cranial nerves cannot be tested because of being on BiPAP. Anytime it is taken off, he desaturates. On muscle strength testing, the tone is normal and equal bilaterally. Patient is having significant frequent myoclonic twitching of his upper limbs and sli ghtly of the lower limbs. Deep tendon reflexes are symmetric and trace in the upper limbs, trace at the knees, plantars are downgoing bilaterally. Sensory to touch cannot be assessed, although patient does withdraw to painful stimuli bilaterally and equally. Cerebellar functions and gait cannot be assessed. On general examination, patient has BiPAP on. No obvious murmur. Patient has basal crackles. Abdomen is soft and nontender. No obvious organomegaly. Peripheral pulses are present. No edema. Patient has significant bruises, petechial hemorrhages, some scabs. Patient has some bruises on the knees from fall. Results - Laboratory Findings CBC and BMP: 06/26/22 09:15 06/26/22 09:15 Abnormal Lab Findings: Abnormal Labs 06/24/22 06/24/22 06/24/22 17:09 17:09 17:09 WBC 12.6 H RBC 2.83 L Hgb 9.2 L D Hct 25.6 L Neutrophils # 11.5 H Lymphocytes # 0.5 L Sodium 118 L* Chloride 87 L Carbon Dioxide 21 L BUN 31 H Glucose 137 H POC Glucose (mg/dL) Osmolality Plasma Lactic Acid Rivas 3.7 H* Calcium 8.1 L Alkaline Phosphatase 283 H Creatine Kinase 486 H Total Protein 5.2 L Albumin 3.1 L Urine Protein Urine Glucose (UA) Amorphous Sediment Urine Mucus 06/24/22 06/24/22 06/24/22 17:09 19:00 20:54 WBC RBC Hgb Hct Neutrophils # Lymphocytes # Sodium Chloride Carbon Dioxide BUN Glucose POC Glucose (mg/dL) Osmolality 260 L Plasma Lactic Acid Rivas 2.3 H* Calcium Alkaline Phosphatase Creatine Kinase Total Protein Albumin Urine Protein 3+ H Urine Glucose (UA) Trace H Amorphous Sediment Rare H Urine Mucus Rare H 06/24/22 06/24/22 06/25/22 23:57 23:57 03:12 WBC RBC Hgb Hct Neutrophils # Lymphocytes # Sodium 122 L 120 L Chloride 91 L 90 L Carbon Dioxide 21 L BUN 30 H 31 H Glucose 143 H 155 H POC Glucose (mg/dL) Osmolality Plasma Lactic Acid Rivas 2.8 H* Calcium 7.8 L 7.4 L Alkaline Phosphatase Creatine Kinase Total Protein Albumin Urine Protein Urine Glucose (UA) Amorphous Sediment Urine Mucus 06/25/22 06/25/22 06/25/22 06:04 07:50 11:37 WBC RBC Hgb Hct Neutrophils # Lymphocytes # Sodium 123 L Chloride Carbon Dioxide BUN Glucose POC Glucose (mg/dL) 302 H 132 H Osmolality Plasma Lactic Acid Rivas Calcium Alkaline Phosphatase Creatine Kinase Total Protein Albumin Urine Protein Urine Glucose (UA) Amorphous Sediment Urine Mucus Assessment and Plan Assessment: * Altered mental status, likely due to toxic metabolic encephalopathy. Reasons multifactorial as mentioned below. * Hyponatremia * Acute pulmonary edema * Metastatic prostate cancer with bony metastasis * CAD * Diabetes * Hyperlipidemia * Hypertension * Parkinson's disease Plan: * Discontinue amantadine * Continue Sinemet at his home dose, when able to swallow. * Speech therapy evaluation. * Treatment of other medical conditions as per IM and other specialties. * Prognosis is very guarded to poor based upon multiple comorbid conditions including terminal prostate cancer. * Discussed with patient's aunt in detail. We will try to discuss with patient's son, when he comes back. Neurology will follow. * Thank you for the consult.
[2022-06-25 16:47] LABS: Glucose,Whole Blood 142 mg/dL (70-110)
[2022-06-25] MEDS: GABAPENTIN 100 MG CAP PO SCH ×3 (17:44→20:54)
[2022-06-25] MEDS: TAMSULOSIN 0.4 MG CAP.ER.24H PO SCH (17:44)
[2022-06-25] MEDS: ASPIRIN 81 MG PO SCH (17:44)
[2022-06-25] MEDS: METOPROLOL TARTRATE 25 MG TAB PO SCH ×2 (17:44→20:53)
[2022-06-25] MEDS: CARBIDOPA-LEVODOPA ER 50-200MG 1 EACH TABLET.ER PO SCH ×3 (17:44→20:53)
[2022-06-25 20:17] LABS: Glucose,Whole Blood 124 mg/dL (70-110)
[2022-06-25] MEDS: NON FORMULARY DRUG (Enzalutamide [Xtandi] 40 MG Capsule) PO SCH (20:53)
[2022-06-25] MEDS ORDERED: TOLVAPTAN 15 MG 1/2 TABLET PO ONE (21:10)
[2022-06-26] MEDS: HEPARIN SODIUM,PORCINE/PF 5,000 UNIT/0.5 ML SYRINGE SQ SCH ×4 (00:58→23:35)
[2022-06-26 06:35] LABS: Glucose,Whole Blood 140 mg/dL (70-110)
[2022-06-26] MEDS: INSULIN ASPART (NovoLOG) 100 UNIT/ML VIAL SQ SCH ×4 (06:37→20:21)
[2022-06-26] MEDS: FUROSEMIDE 10 MG/ML 2 ML VIAL IV SCH ×2 (08:35→20:25)
[2022-06-26] MEDS: CARBIDOPA-LEVODOPA ER 50-200MG 1 EACH TABLET.ER PO SCH ×3 (08:36→20:21)
[2022-06-26] MEDS: ASPIRIN 81 MG PO SCH (08:36)
[2022-06-26] MEDS: GABAPENTIN 100 MG CAP PO SCH ×3 (08:36→20:22)
[2022-06-26] MEDS: METOPROLOL TARTRATE 25 MG TAB PO SCH (08:36)
[2022-06-26] MEDS: TAMSULOSIN 0.4 MG CAP.ER.24H PO SCH (08:36)
[2022-06-26 09:52] LABS: Basophils % (A) 0 %; Eosinophils % (A) 0 %; HGB 7.8 gm/dL (13.0-17.5); Lymphocytes # (A) 0.4 k/uL (1.0-4.8); Lymphocytes % (A) 4 %; MCH 31.7 pg (25.0-35.0); MCV 93.2 fL (80.0-100.0); Magnesium 1.9 mg/dL (1.6-2.3); Mean Platelet Volume 8.7; Monocytes # (A) 0.4 k/uL (0-1.0); Monocytes % (A) 4 %; Neutrophils # (A) 8.8 k/uL (1.3-7.7); Neutrophils % (A) 91 %; Platelet Count 128 k/uL (150-450); RBC 2.47 m/uL (4.30-5.90); RDW 14.6 % (11.5-15.5); WBC 9.7 k/uL (3.8-10.6)
[2022-06-26] MEDS ORDERED: Potassium Replacement Protocol 1 EACH MISC MISCELLANE PRN (10:09)
--- NOTE | 2022-06-26 10:19 | P.PN ---
Subjective Patient is seen in follow-up for hyponatremia. Sodium level improved. Resting in bed. On BiPAP. Quite lethargic. Nonoliguric. On IV Lasix. Vital signs are stable. General: Resting in bed. HEENT: Head exam is unremarkable. On BiPAP. LUNGS: Breath sounds decreased. HEART: Rate and Rhythm are regular. ABDOMEN: Soft, no distention. EXTREMITITES: No edema. Objective - Vital Signs Vital signs: Vital Signs Temp 98.0 F 06/26/22 08:30 Pulse 81 06/26/22 08:32 Resp 21 06/26/22 08:32 BP 147/58 06/26/22 08:30 Pulse Ox 97 06/26/22 08:30 FiO2 30 06/26/22 08:30 Intake & Output 06/25/22 06/26/22 06/26/22 18:59 06:59 18:59 Intake Total 20 10 Output Total 275 600 Balance -255 -600 10 Weight 66 kg 65.5 kg Intake: IV 20 10 Invasive Line 1 20 10 Output: Urine 275 600 Other: Voiding Method Indwelling Catheter Indwelling Catheter Indwelling Catheter - Labs CBC & Chem 7: 06/26/22 09:15 06/26/22 09:15 Labs: Abnormal Lab Results - Last 24 Hours (Table) 06/24/22 06/25/22 06/25/22 Range/Units 19:00 11:37 16:42 RBC (4.30-5.90) m/uL Hgb (13.0-17.5) gm/dL Hct (39.0-53.0) % Plt Count (150-450) k/uL Neutrophils # (1.3-7.7) k/uL Lymphocytes # (1.0-4.8) k/uL Sodium (137-145) mmol/L Potassium (3.5-5.1) mmol/L Chloride (98-107) mmol/L Carbon Dioxide (22-30) mmol/L BUN (9-20) mg/dL Glucose (74-99) mg/dL POC Glucose (mg/dL) 132 H 142 H (70-110) mg/dL Calcium (8.4-10.2) mg/dL Ur Random Sodium <20 L (40-220) mmol/L 10/22/22 10/22/22 10/23/22 Range/Units 18:37 20:15 06:34 RBC (4.30-5.90) m/uL Hgb (13.0-17.5) gm/dL Hct (39.0-53.0) % Plt Count (150-450) k/uL Neutrophils # (1.3-7.7) k/uL Lymphocytes # (1.0-4.8) k/uL Sodium 122 L (137-145) mmol/L Potassium (3.5-5.1) mmol/L Chloride (98-107) mmol/L Carbon Dioxide (22-30) mmol/L BUN (9-20) mg/dL Glucose (74-99) mg/dL POC Glucose (mg/dL) 124 H 140 H (70-110) mg/dL Calcium (8.4-10.2) mg/dL Ur Random Sodium (40-220) mmol/L 06/26/22 06/26/22 Range/Units 09:15 09:15 RBC 2.47 L (4.30-5.90) m/uL Hgb 7.8 L (13.0-17.5) gm/dL Hct 23.0 L (39.0-53.0) % Plt Count 128 L (150-450) k/uL Neutrophils # 8.8 H (1.3-7.7) k/uL Lymphocytes # 0.4 L (1.0-4.8) k/uL Sodium 126 L (137-145) mmol/L Potassium 3.0 L (3.5-5.1) mmol/L Chloride 96 L (98-107) mmol/L Carbon Dioxide 21 L (22-30) mmol/L BUN 33 H (9-20) mg/dL Glucose 127 H (74-99) mg/dL POC Glucose (mg/dL) (70-110) mg/dL Calcium 7.0 L (8.4-10.2) mg/dL Ur Random Sodium (40-220) mmol/L Assessment and Plan Plan: assessment: 1. Hyponatremia from poor solute intake. Hypervolemic. Improving. On IV Lasix. Also received Samsca this admission. Sodium level 126 this morning. Urine sodium less than 20. Urine osmolality 554. 2. Acute hypoxic respiratory failure secondary to volume overload. 3. Prostate cancer with metastatic disease. 4. Benign hypertension. Stable. 5. Diabetes mellitus. 6. Parkinson's disease. Neurology following. 7. Urinary retention. Edward catheter placed. On Flomax. No hydronephrosis noted on kidney ultrasound. Left kidney not visualized. 8. Hypokalemia from poor intake and diuresis. Plan: Encouraged oral intake. 1200 mL fluid restriction. Maintain IV Lasix 20 mg twice daily. Follow-up TSH. Replace potassium. Repeat labs in the morning. Prognosis guarded.
[2022-06-26] MEDS: POTASSIUM CHLORIDE ER 20 MEQ TAB.ER PO SCH ×3 (10:25→16:14)
[2022-06-26] MEDS: POTASSIUM CHLORIDE 20 MEQ in WATER FOR INJECTION 1 100ML.BAG IVPB SCH ×3 (10:27→16:31)
[2022-06-26] MEDS ORDERED: CALCIUM GLUCONATE IN NACL 1 GM in SALINE 1 100ML.BAG IVPB ONE (11:30)
[2022-06-26 11:35] LABS: Glucose,Whole Blood 140 mg/dL (70-110)
--- NOTE | 2022-06-26 13:38 | P.PN ---
Subjective Progress Note Date: 06/26/22 Patient is seen today, lying down in bed, requiring BiPAP. Not interactive with exam. Improving Na. Ongoing diuretics. Attempt to wean BIPAP today. Gen: Asleep, comfortable HEENT: normocephalic, atraumatic, good hearing acuity, moist mucous membranes Resp: good air exchange, breathing comfortably with no accessory muscle use, bilateral crackles CVS: good distal perfusion x 4, regular rate and rhythm GI: soft, NTTP, ND : no SPT, no CVAT, fitch catheter is present MSK: Present pitting edema, no clubbing Neuro: non-focal, moving all extremities Psych: cooperative, euthymic mood Assessment/plan: Severe hyponatremia, hypervolemic Acute on chronic systolic Heart Failure Exacerbation, EF is mildly to moderately reduced per Echo on 05/26/22 -Fluid restriction, diuresis -Nephrology consult -Monitor BMP every 3-4 hours -Avoid overcorrection with goal correction less than 12 in 24 hours next Altered mental status, possibly secondary to severe hyponatremia versus worsening Parkinson's -Neurology consulted -Resume patient's Sinemet -Swallow evaluation Chronic conditions: Type II DM, coronary artery disease, stage IV prostate cancer -Continue with home meds -Insulin sliding scale with blood glucose monitoring DVT prophylaxis -Heparin subq CODE STATUS: Full Code Anticipated discharge date: 3-[address]: Home Objective - Vital Signs Vital signs: Vital Signs Temp 97.6 F 06/26/22 11:21 Pulse 76 06/26/22 11:21 Resp 21 06/26/22 11:21 BP 154/65 06/26/22 11:21 Pulse Ox 98 06/26/22 11:21 FiO2 30 06/26/22 11:51 Intake & Output 06/25/22 06/26/22 06/26/22 18:59 06:59 18:59 Intake Total 20 10 Output Total 275 600 675 Balance -242 -378 -502 Weight 66 kg 65.5 kg Intake: IV 20 10 Invasive Line 1 20 10 Output: Urine 275 600 675 Other: Voiding Method Indwelling Catheter Indwelling Catheter Indwelling Catheter - Labs CBC & Chem 7: 06/26/22 09:15 06/26/22 09:15 Labs: Abnormal Lab Results - Last 24 Hours (Table) 06/24/22 06/25/22 06/25/22 Range/Units 19:00 16:42 18:37 RBC (4.30-5.90) m/uL Hgb (13.0-17.5) gm/dL Hct (39.0-53.0) % Plt Count (150-450) k/uL Neutrophils # (1.3-7.7) k/uL Lymphocytes # (1.0-4.8) k/uL Sodium 122 L (137-145) mmol/L Potassium (3.5-5.1) mmol/L Chloride (98-107) mmol/L Carbon Dioxide (22-30) mmol/L BUN (9-20) mg/dL Glucose (74-99) mg/dL POC Glucose (mg/dL) 142 H (70-110) mg/dL Calcium (8.4-10.2) mg/dL Ionized Calcium Li (4.5-5.3) mg/dL Ur Random Sodium <20 L (40-220) mmol/L 06/25/22 06/26/22 06/26/22 Range/Units 20:15 06:34 09:15 RBC 2.47 L (4.30-5.90) m/uL Hgb 7.8 L (13.0-17.5) gm/dL Hct 23.0 L (39.0-53.0) % Plt Count 128 L (150-450) k/uL Neutrophils # 8.8 H (1.3-7.7) k/uL Lymphocytes # 0.4 L (1.0-4.8) k/uL Sodium (137-145) mmol/L Potassium (3.5-5.1) mmol/L Chloride (98-107) mmol/L Carbon Dioxide (22-30) mmol/L BUN (9-20) mg/dL Glucose (74-99) mg/dL POC Glucose (mg/dL) 124 H 140 H (70-110) mg/dL Calcium (8.4-10.2) mg/dL Ionized Calcium Li (4.5-5.3) mg/dL Ur Random Sodium (40-220) mmol/L 06/26/22 06/26/22 06/26/22 Range/Units 09:15 11:33 11:57 RBC (4.30-5.90) m/uL Hgb (13.0-17.5) gm/dL Hct (39.0-53.0) % Plt Count (150-450) k/uL Neutrophils # (1.3-7.7) k/uL Lymphocytes # (1.0-4.8) k/uL Sodium 126 L (137-145) mmol/L Potassium 3.0 L (3.5-5.1) mmol/L Chloride 96 L (98-107) mmol/L Carbon Dioxide 21 L (22-30) mmol/L BUN 33 H (9-20) mg/dL Glucose 127 H (74-99) mg/dL POC Glucose (mg/dL) 140 H (70-110) mg/dL Calcium 7.0 L (8.4-10.2) mg/dL Ionized Calcium Li 4.4 L (4.5-5.3) mg/dL Ur Random Sodium (40-220) mmol/L
--- NOTE | 2022-06-26 14:37 | P.CRDCN ---
History of Present Illness Consult date: 06/26/22 History of present illness: Patient has a known history of coronary artery disease with multiple angioplasties, metastatic prostate cancer, diabetes, hypertension, hyperl ipidemia, Parkinson's, who reported to the ER with altered mental status. According to the patient's son his was medication had been change and the patient has become increasingly confused and that is why he brought him in. We have been consulted to see the patient for congestive heart failure. Patient's BNP upon admission is 22,300 his EKG showed sinus rhythm with left axis deviation and a left bundle branch block. chest x-ray showed pulmonary edema and pulmonary fluid and possible CHF. His CT of the head was negative for an acute process. He had an echocardiogram in May 2022 which showed a mild to moderately decreased LV function with an ejection fraction of 40-45% and mild mitral regurgitation. Patient is examined today resting comfortably in bed in no signs of acute distress, he does remain on BiPAP. Patient's sodium upon admission was 118 and has improved to 122, nephrology is on the case and will continue to cautiously dialyze him with IV Lasix 20 mg twice a day. At this time patient is unable to swallow medications due to his altered mental state and is having runs of wide tachycardia will transition him to IV Lopressor. We will obtain a 2-D echo. Review of Systems REVIEW OF SYSTEMS At the time of my exam: CONSTITUTIONAL: Denies fever or chills. EYES: Negative for vision changes ENT: Negative for hearing loss CARDIOVASCULAR: Denies chest pain, shortness of breath, diaphoresis, orthopnea, PND or palpitations. VASCULAR: Denies edema RESPIRATORY: Denies cough. GASTROINTESTINAL: Denies abdominal pain, diarrhea, constipation, nausea or vomiting. MUSCULOSKELETAL: Denies myalgias. NEUROLOGIC: Denies numbness, tingling, headache or weakness. ENDOCRINE: Denies fatigue, weight change, polydipsia or polyurina. GENITOURINARY: Denies burning, hematuria or urgency with micturation. HEMATOLOGIC: Denies history of anemia or bleeding. DERMATOLOGY: Denies rash or skin sores PSYCH: Negative for depression or hallucinations. Past Medical History Past Medical History: Coronary Artery Disease (CAD), Cancer, Chest Pain / Angina, Diabetes Mellitus, Hyperlipidemia, Hypertension, Neurologic Disorder Additional Past Medical History / Comment(s): Hx skin Cancer., parkinson's., hx nose bleed with packing, anemia, prostate cancer with bone metastasis and mets to sternum., back pain, hx falls-has elbow and hand wounds from falling and scratches on his face., constipation., cataracts, poor vision, [place]. History of Any Multi-Drug Resistant Organisms: None Reported Past Surgical History: Back Surgery, Heart Catheterization With Stent Additional Past Surgical History / Comment(s): Skin CA removed from L arm; Colonoscopies. Past Anesthesia/Blood Transfusion Reactions: No Reported Reaction, Family History of Problems w/ Anesthesia Additional Past Anesthesia/Blood Transfusion Reaction / Comment(s): son states his bloodpressure dropped during surgery and he is concerned about his Dad, would like his BP monitored closely- pt may not tell you is he is not feeling well. Date of Last Stent Placement:: 04/12/18 Past Psychological History: No Psychological Hx Reported Smoking Status: Never smoker Past Alcohol Use History: None Reported Past Drug Use History: None Reported - Past Family History Mother Family Medical History: Cancer Additional Family Medical History / Comment(s): . Medications and Allergies Home Medications Medication Instructions Recorded Confirmed Type Nitroglycerin Sl Tabs [Nitrostat] 0.4 mg SUBLINGUAL Q5M PRN 06/06/20 06/24/22 History amLODIPine BESYLATE/BENAZEPRIL 1 cap PO BID 06/06/20 06/24/22 History [amLODIPine BESYLATE/BENAZEPRIL 5-10 MG] Atorvastatin Calcium [Lipitor] 80 mg PO HS 03/07/21 06/24/22 History Isosorbide Mononitrate ER [Imdur] 30 mg PO DAILY 03/07/21 06/24/22 History Carbidopa-Levodopa ER 50-200Mg 1 tab PO TID 01/11/22 06/24/22 History [Sinemet CR 50-200 mg] Enzalutamide [Xtandi] 160 mg PO HS 01/11/22 06/24/22 History Gabapentin [Neurontin] 100 mg PO TID 01/11/22 06/24/22 History sitaGLIPtin PHOS/metFORMIN HCL 0.5 tab PO BID 05/25/22 06/24/22 History [Janumet Xr 50-1,000 mg Tablet] Aspirin 81 mg PO DAILY #30 tab 05/26/22 06/24/22 Rx hydrALAZINE HCL [Apresoline] 25 mg PO TID #90 tab 05/26/22 06/24/22 Rx Carboxymethylcellulos/Glycerin 1 drop BOTH EYES 5XD PRN 06/24/22 06/24/22 History [Refresh Relieva 0.5-0.9% Drop] DULoxetine HCL [Cymbalta] 20 mg PO DIRECTED 06/24/22 06/24/22 History Metoprolol Tartrate [Lopressor] 25 mg PO BID 06/24/22 06/24/22 History Allergies Allergy/AdvReac Type Severity Reaction Status Date / Time No Known Allergies Allergy Verified 06/24/22 18:51 Physical Exam Vitals: Vital Signs Temp Pulse Resp BP Pulse Ox FiO2 06/26/22 13:20 76 21 06/26/22 11:51 30 06/26/22 11:21 97.6 F 76 21 154/65 98 30 06/26/22 08:32 81 21 06/26/22 08:30 98.0 F 80 21 147/58 97 30 06/26/22 07:54 30 06/26/22 04:00 99.2 F 81 14 151/70 97 40 06/26/22 03:56 40 06/26/22 00:28 40 06/26/22 00:00 99.5 F 78 14 151/71 95 40 06/25/22 20:00 97.2 F L 78 16 155/70 94 L 40 06/25/22 19:50 40 06/25/22 15:55 40 06/25/22 15:18 84 30 H 06/25/22 15:17 97.0 F L 82 30 H 145/70 92 L 60 Intake and Output 06/25/22 06/26/22 06/26/22 22:59 06:59 14:59 Intake Total 10 20 Output Total 275 600 675 Balance -897 -296 -246 Intake: IV 10 20 Invasive Line 1 10 20 Output: Urine 275 600 675 Other: Voiding Method Indwelling Catheter Indwelling Catheter Indwelling Catheter Weight 65.5 kg General: The patient is awake and alert, in no distress, and does not appear acutely ill. Skin: Skin is warm and dry and no rashes or lesions are noted. Eye: Pupils are equal, round and reactive to light, extra-ocular movements are intact; there is normal conjunctiva bilaterally. Ears, nose, mouth and throat: There are moist mucous membranes and no oral lesions. Neck: The neck is supple, there is no tenderness or JVD. Cardiovascular: There is irregular regular rate and rhythm. No murmur, rub or gallop is appreciated. Respiratory: Lungs are clear to auscultation, respirations are non-labored, breath sounds are equal. Patient is on BiPAP Gastrointestinal: Soft, non-distended, non-tender abdomen without masses or organomegaly noted. There is no rebound or guarding present. Bowel sounds are unremarkable. Back: There is no tenderness to palpation in the midline. There is no obvious deformity. Musculoskeletal: Normal ROM, no tenderness, There is no pedal edema. There is no calf tenderness or swelling. Extremities: Mild bilateral pitting edema Vascular: Femoral pulse is normal. Posterior tibial pulses are normal .Dorsalis pedis is palpable. Neurological: CN II-XII intact. There are no obvious motor or sensory deficits. Speech is normal. Psychiatric: Altered mental status Results 06/26/22 09:15 06/26/22 09:15 CBC 06/26/22 Range/Units 09:15 WBC 9.7 (3.8-10.6) k/uL RBC 2.47 L (4.30-5.90) m/uL Hgb 7.8 L (13.0-17.5) gm/dL Hct 23.0 L (39.0-53.0) % Plt Count 128 L (150-450) k/uL Comprehensive Metabolic Panel 06/25/22 06/26/22 Range/Units 18:37 09:15 Sodium 122 L 126 L (137-145) mmol/L Potassium 3.0 L (3.5-5.1) mmol/L Chloride 96 L (98-107) mmol/L Carbon Dioxide 21 L (22-30) mmol/L BUN 33 H (9-20) mg/dL Creatinine 0.95 (0.66-1.25) mg/dL Glucose 127 H (74-99) mg/dL Calcium 7.0 L (8.4-10.2) mg/dL Current Medications Generic Name Dose Route Start Last Admin Trade Name Freq PRN Reason Stop Dose Admin Artificial Tears 1 drops 06/24/22 21:32 Artificial Tears-Hypromellose Drops 15 Ml Btl BOTH EYES 5XD PRN dry eyes Aspirin 81 mg 06/25/22 09:00 06/26/22 08:36 Aspirin 81 Mg PO Not Given DAILY SHANELL Carbidopa/Levodopa 1 each 06/24/22 22:00 06/26/22 08:36 Carbidopa-Levodopa Er 50-200mg 1 Each Tablet.Er PO Not Given TID SHANELL Furosemide 20 mg 06/25/22 11:30 06/26/22 08:35 Furosemide 10 Mg/Ml 2 Ml Vial IV 20 mg Q12HR SHANELL Administration Gabapentin 100 mg 06/24/22 22:00 06/26/22 08:36 Gabapentin 100 Mg Cap PO Not Given TID SHANELL Heparin Sodium (Porcine) 5,000 unit 06/25/22 08:00 06/26/22 08:36 Heparin Sodium,Porcine/Pf 5,000 Unit/0.5 Ml Syringe SQ 5,000 unit Q8HR SHANELL Administration Potassium Chloride 20 meq/ IV 100 mls @ 50 mls/hr 06/26/22 11:00 06/26/22 12:42 Solution IVPB 06/26/22 16:59 50 mls/hr Q2H SHANELL Administration Protocol Insulin Aspart 0 unit 06/25/22 07:30 06/26/22 11:35 Insulin Aspart (Novolog) 100 Unit/Ml Vial SQ Not Given ACHS [facility] Protocol Metoprolol Tartrate 25 mg 06/24/22 21:45 06/26/22 08:36 Metoprolol Tartrate 25 Mg Tab PO Not Given BID SHANELL Miscellaneous Information 1 each 06/26/22 10:09 Potassium Replacement Protocol 1 Each Misc MISCELLANE DAILY PRN Per Protocol Protocol Naloxone HCl 0.2 mg 06/24/22 20:06 Naloxone 0.4 Mg/Ml 1 Ml Vial IV Q2M PRN Opioid Reversal Non-Formulary Medication 160 mg 06/24/22 21:45 06/25/22 20:53 Enzalutamide [Xtandi] PO Not Given HS SHANELL Potassium Chloride 20 meq 06/26/22 12:00 06/26/22 10:33 Potassium Chloride Er 20 Meq Tab.Er PO 06/26/22 16:01 Not Given Q2HR SHANELL Tamsulosin HCl 0.4 mg 06/25/22 11:30 06/26/22 08:36 Tamsulosin 0.4 Mg Cap.Er.24h PO Not Given PC-BRKFST [facility] Intake and Output 06/25/22 06/26/22 06/26/22 22:59 06:59 14:59 Intake Total 10 20 Output Total 275 600 675 Balance -227 -046 -467 Intake: IV 10 20 Invasive Line 1 10 20 Output: Urine 275 600 675 Other: Voiding Method Indwelling Catheter Indwelling Catheter Indwelling Catheter Weight 65.5 kg 06/26/22 09:15 06/26/22 09:15 Assessment and Plan Assessment: Acute on chronic systolic congestive heart failure Wide tachycardia Plan: Start Lopressor 5 mg every 8 IV Obtain a 2-D echocardiogram Continue with telemetry to monitoring Further recommendations based on clinical course The above impression and plan of care have been discussed and directed by the [facility] physician. Liz Perry, nurse practitioner, acting as scribe for signing physician.
[2022-06-26 16:36] LABS: Glucose,Whole Blood 137 mg/dL (70-110)
[2022-06-26 20:09] LABS: Glucose,Whole Blood 140 mg/dL (70-110)
[2022-06-26] MEDS: NON FORMULARY DRUG (Enzalutamide [Xtandi] 40 MG Capsule) PO SCH (20:21)
--- NOTE | 2022-06-27 01:03 | P.PN ---
Subjective Progress Note Date: 06/26/22 Patient was seen for a follow-up. Patient's aunt was present today as well. Still not able to meet patient's son. Patient's aunt has mentioned that patient's daughter who lives in [place] wants comfort care, whereas the son wants full code, and all treatments possible. Patient appears more comfortable today. Less myoclonic jerks. Objective - Vital Signs Vital signs: Vital Signs Temp 97.6 F 06/26/22 11:21 Pulse 76 06/26/22 13:20 Resp 21 06/26/22 13:20 BP 154/65 06/26/22 11:21 Pulse Ox 98 06/26/22 11:21 FiO2 30 06/26/22 11:51 Intake & Output 06/25/22 06/26/22 06/26/22 18:59 06:59 18:59 Intake Total 20 20 Output Total 275 600 675 Balance -255 600 655 Weight 66 kg 65.5 kg Intake: IV 20 20 Invasive Line 1 20 20 Output: Urine 275 600 675 Other: Voiding Method Indwelling Catheter Indwelling Catheter Indwelling Catheter - Exam Patient is obtunded. He did open his eyes to calling his name, but then close it again. Pupils are equal and reactive. He is on a BiPAP. Patient has much less myoclonic jerks. Still has petichae. Examination is unchanged. Patient does move his extremities. - Labs CBC & Chem 7: 06/26/22 09:15 06/26/22 09:15 Labs: Abnormal Lab Results - Last 24 Hours (Table) 06/24/22 06/25/22 06/25/22 Range/Units 19:00 16:42 18:37 RBC (4.30-5.90) m/uL Hgb (13.0-17.5) gm/dL Hct (39.0-53.0) % Plt Count (150-450) k/uL Neutrophils # (1.3-7.7) k/uL Lymphocytes # (1.0-4.8) k/uL Sodium 122 L (137-145) mmol/L Potassium (3.5-5.1) mmol/L Chloride (98-107) mmol/L Carbon Dioxide (22-30) mmol/L BUN (9-20) mg/dL Glucose (74-99) mg/dL POC Glucose (mg/dL) 142 H (70-110) mg/dL Calcium (8.4-10.2) mg/dL Ionized Calcium Li (4.5-5.3) mg/dL Ur Random Sodium <20 L (40-220) mmol/L 06/25/22 06/26/22 06/26/22 Range/Units 20:15 06:34 09:15 RBC 2.47 L (4.30-5.90) m/uL Hgb 7.8 L (13.0-17.5) gm/dL Hct 23.0 L (39.0-53.0) % Plt Count 128 L (150-450) k/uL Neutrophils # 8.8 H (1.3-7.7) k/uL Lymphocytes # 0.4 L (1.0-4.8) k/uL Sodium (137-145) mmol/L Potassium (3.5-5.1) mmol/L Chloride (98-107) mmol/L Carbon Dioxide (22-30) mmol/L BUN (9-20) mg/dL Glucose (74-99) mg/dL POC Glucose (mg/dL) 124 H 140 H (70-110) mg/dL Calcium (8.4-10.2) mg/dL Ionized Calcium Li (4.5-5.3) mg/dL Ur Random Sodium (40-220) mmol/L 06/26/22 06/26/22 06/26/22 Range/Units 09:15 11:33 11:57 RBC (4.30-5.90) m/uL Hgb (13.0-17.5) gm/dL Hct (39.0-53.0) % Plt Count (150-450) k/uL Neutrophils # (1.3-7.7) k/uL Lymphocytes # (1.0-4.8) k/uL Sodium 126 L (137-145) mmol/L Potassium 3.0 L (3.5-5.1) mmol/L Chloride 96 L (98-107) mmol/L Carbon Dioxide 21 L (22-30) mmol/L BUN 33 H (9-20) mg/dL Glucose 127 H (74-99) mg/dL POC Glucose (mg/dL) 140 H (70-110) mg/dL Calcium 7.0 L (8.4-10.2) mg/dL Ionized Calcium Li 4.4 L (4.5-5.3) mg/dL Ur Random Sodium (40-220) mmol/L Assessment and Plan Assessment: * Altered mental status, likely due to toxic metabolic encephalopathy. Reasons multifactorial as mentioned below. * Hyponatremia * Acute pulmonary edema * Metastatic prostate cancer with bony metastasis * CAD * Diabetes * Hyperlipidemia * Hypertension * Parkinson's disease Plan: * Discontinue amantadine * Continue Sinemet at his home dose, when able to swallow. * Speech therapy evaluation. * Treatment of other medical conditions as per IM and other specialties. * Prognosis is very guarded to poor based upon multiple comorbid conditions including terminal prostate cancer. * Discussed with patient's aunt in detail. We will try to discuss with patient's son, when he comes back. * Dr. Krzysztof Starkey Will resume neurology service in the morning.
[2022-06-27 05:51] LABS: Glucose,Whole Blood 160 mg/dL (70-110)
[2022-06-27] MEDS: INSULIN ASPART (NovoLOG) 100 UNIT/ML VIAL SQ SCH ×4 (06:41→20:44)
[2022-06-27 08:17] LABS: Basophils % (A) 0 %; Eosinophils % (A) 0 %; HCT 25.1 % (39.0-53.0); HGB 8.7 gm/dL (13.0-17.5); Lymphocytes # (A) 0.5 k/uL (1.0-4.8); Lymphocytes % (A) 5 %; MCH 32.1 pg (25.0-35.0); MCHC 34.6 g/dL (31.0-37.0); MCV 92.7 fL (80.0-100.0); Mean Platelet Volume 8.7; Monocytes # (A) 0.4 k/uL (0-1.0); Monocytes % (A) 4 %; Neutrophils % (A) 89 %; Platelet Count 169 k/uL (150-450); RBC 2.71 m/uL (4.30-5.90); RDW 14.7 % (11.5-15.5); WBC 10.1 k/uL (3.8-10.6)
[2022-06-27 08:35] LABS: Calcium 7.1 mg/dL (8.4-10.2); Potassium 3.6 mmol/L (3.5-5.1)
[2022-06-27] MEDS: GABAPENTIN 100 MG CAP PO SCH ×3 (09:08→20:44)
[2022-06-27] MEDS: TAMSULOSIN 0.4 MG CAP.ER.24H PO SCH (09:08)
[2022-06-27] MEDS: CARBIDOPA-LEVODOPA ER 50-200MG 1 EACH TABLET.ER PO SCH ×3 (09:08→20:44)
[2022-06-27] MEDS: ASPIRIN 81 MG PO SCH (09:08)
[2022-06-27] MEDS: FUROSEMIDE 10 MG/ML 2 ML VIAL IV SCH ×2 (09:12→20:45)
[2022-06-27] MEDS: HEPARIN SODIUM,PORCINE/PF 5,000 UNIT/0.5 ML SYRINGE SQ SCH ×3 (09:13→23:24)
--- NOTE | 2022-06-27 09:46 | P.PN ---
Subjective Patient is seen in follow-up for hyponatremia. Sodium level improved. Resting in bed. On nasal cannula. Failed swallow eval this morning. Quite lethargic. Nonoliguric. On IV Lasix. Vital signs are stable. General: Resting in bed. HEENT: Head exam is unremarkable. On nasal cannula. LUNGS: Breath sounds decreased. HEART: Rate and Rhythm are regular. ABDOMEN: Soft, no distention. EXTREMITITES: No edema. Objective - Vital Signs Vital signs: Vital Signs Temp 97.4 F L 06/27/22 09:02 Pulse 97 06/27/22 09:03 Resp 18 06/27/22 09:03 BP 149/97 06/27/22 09:02 Pulse Ox 97 06/27/22 09:02 FiO2 30 06/26/22 16:28 Intake & Output 06/26/22 06/27/22 06/27/22 18:59 06:59 18:59 Intake Total 20 10 Output Total 1025 300 175 Balance -1005 -300 -165 Weight 66 kg Intake: IV 20 10 Invasive Line 1 20 10 Output: Urine 1025 300 175 Other: Voiding Method Indwelling Catheter Indwelling Catheter Indwelling Catheter - Labs CBC & Chem 7: 06/27/22 07:56 06/27/22 07:56 Labs: Abnormal Lab Results - Last 24 Hours (Table) 06/26/22 06/26/22 06/26/22 Range/Units 09:15 09:15 11:33 RBC 2.47 L (4.30-5.90) m/uL Hgb 7.8 L (13.0-17.5) gm/dL Hct 23.0 L (39.0-53.0) % Plt Count 128 L (150-450) k/uL Neutrophils # 8.8 H (1.3-7.7) k/uL Lymphocytes # 0.4 L (1.0-4.8) k/uL Sodium 126 L (137-145) mmol/L Potassium 3.0 L (3.5-5.1) mmol/L Chloride 96 L (98-107) mmol/L Carbon Dioxide 21 L (22-30) mmol/L BUN 33 H (9-20) mg/dL Glucose 127 H (74-99) mg/dL POC Glucose (mg/dL) 140 H (70-110) mg/dL Calcium 7.0 L (8.4-10.2) mg/dL Ionized Calcium Li (4.5-5.3) mg/dL 06/26/22 06/26/22 06/26/22 Range/Units 11:57 16:33 20:08 RBC (4.30-5.90) m/uL Hgb (13.0-17.5) gm/dL Hct (39.0-53.0) % Plt Count (150-450) k/uL Neutrophils # (1.3-7.7) k/uL Lymphocytes # (1.0-4.8) k/uL Sodium (137-145) mmol/L Potassium (3.5-5.1) mmol/L Chloride (98-107) mmol/L Carbon Dioxide (22-30) mmol/L BUN (9-20) mg/dL Glucose (74-99) mg/dL POC Glucose (mg/dL) 137 H 140 H (70-110) mg/dL Calcium (8.4-10.2) mg/dL Ionized Calcium Li 4.4 L (4.5-5.3) mg/dL 06/27/22 06/27/22 06/27/22 Range/Units 05:49 07:56 07:56 RBC 2.71 L (4.30-5.90) m/uL Hgb 8.7 L (13.0-17.5) gm/dL Hct 25.1 L (39.0-53.0) % Plt Count (150-450) k/uL Neutrophils # 9.0 H (1.3-7.7) k/uL Lymphocytes # 0.5 L (1.0-4.8) k/uL Sodium 131 L (137-145) mmol/L Potassium (3.5-5.1) mmol/L Chloride (98-107) mmol/L Carbon Dioxide 19 L (22-30) mmol/L BUN 33 H (9-20) mg/dL Glucose 127 H (74-99) mg/dL POC Glucose (mg/dL) 160 H (70-110) mg/dL Calcium 7.1 L (8.4-10.2) mg/dL Ionized Calcium Li (4.5-5.3) mg/dL Assessment and Plan Plan: assessment: 1. Hyponatremia from poor solute intake. Hypervolemic. Improving. On IV Lasix. Also received Samsca this admission. Sodium level 131 this morning. Urine sodium less than 20. Urine osmolality 554. TSH normal. 2. Acute hypoxic respiratory failure secondary to volume overload. 3. Prostate cancer with metastatic disease. 4. Benign hypertension. Stable. 5. Diabetes mellitus. 6. Parkinson's disease. Neurology following. 7. Urinary retention. Edward catheter placed. On Flomax. No hydronephrosis noted on kidney ultrasound. Left kidney not visualized. 8. Hypokalemia from poor intake and diuresis. Replaced. Better. Plan: Encouraged oral intake. 1200 mL fluid restriction. Maintain IV Lasix 20 mg twice daily. Replace potassium. Check chest x-ray. Repeat labs in the morning. Prognosis guarded.
--- NOTE | 2022-06-27 10:20 | XR ---
EXAMINATION TYPE: XR chest 1V DATE OF EXAM: 06/27/2022 COMPARISON: Chest x-ray 06/24/2022 HISTORY: Shortness of breath TECHNIQUE: Single frontal view of the chest is obtained. FINDINGS: There is abnormal interstitial and airspace disease present bilaterally. Sclerotic metasta sis noted within the visualized skeleton. No evident pneumothorax or sizable pleural effusion. Cardia c mediastinal silhouette is stable. Aorta is dense. There are overlying leads. IMPRESSION: Metastatic disease. Correlate for possible pneumonia. Correlate for possible interstitia l edema, congestive heart failure not excluded
[2022-06-27] MEDS: POTASSIUM CHLORIDE 20 MEQ in WATER FOR INJECTION 1 100ML.BAG IVPB SCH ×2 (10:51→13:13)
--- NOTE | 2022-06-27 11:19 | P.PN ---
Subjective This is a pleasant 87-year-old male past medical history significant for stage IV prostate cancer with metastatis to bone, Parkinson's disease, type 2 diabetes, hypertension, Parkinson's disease, coronary artery disease with PCI to mid left circumflex and distal RCA in 2018, PCI PLV branch of RCA in 02/2021, ischemic cardiomyopathy with an EF of 40-45%. He did follow in the office with Dr. Barros. We have been asked to see in consultation for congestive heart failure. Patient presented to the ER by his son for increased altered mental sta tus and failure to thrive. Patient was started on IV Lasix yesterday. Patient seen and examined at bedside, son at bedside. Patient is lethargic, appears malnutrition and dehydrated. No complaints of chest pain or shortness of breath. Vital signs are stable. Blood pressure 149/97, heart rate 97. He has not passed a swallow evaluation. Telemetry reviewed, appears in sinus rhythm becomes tachycardic at time, appeared to go into possible SVT but spontaneously converted to sinus rhythm. Chest xray has improved from 06/24. Labs, sodium 131, potassium 3.6, BUN 33, serum creatinine 0.9, magnesium 2.1, hemoglobin 8.7 GENERAL: Lethargic, frail, In no acute distress. NECK: Supple without JVD LUNGS: Breath sounds crackles mild in the bases to auscultation bilaterally. Respiration equal and unlabored. No wheezes, rales or rhonchi. HEART: Regular rate and rhythm without murmurs, rubs or gallops. S1 and S2 heard. EXTREMITIES: Normal range of motion, no edema. No clubbing or cyanosis. Perip heral pulses intact. ASSESSMENT Acute on chronic heart failure with mildly reduced ejection fraction Episodes of wide-complex tachycardia Altered mental status Failure to thrive Stage IV prostate cancer with metastatis to bone Parkinson's disease Type 2 diabetes Hypertension Coronary artery disease with PCI to mid left circumflex and distal RCA in 2018, PCI PLV branch of RCA in 02/2021 Ischemic cardiomyopathy with an EF of 40-45% PLAN Recommend possible transition to PO Lasix, discussed with nephrology Patient currently unable to take PO medications, IV lopressor PRN Further recommendations based on clinical course Nurse Practitioner note has been reviewed, I agree with a documented findings and plan of care. Patient was seen and examined. Objective - Vital Signs Vital signs: Vital Signs Temp 98.2 F 06/27/22 04:00 Pulse 96 06/27/22 04:00 Resp 14 06/27/22 04:00 BP 159/77 06/27/22 04:00 Pulse Ox 94 L 06/27/22 07:26 FiO2 30 06/26/22 16:28 Intake & Output 06/26/22 06/27/22 06/27/22 18:59 06:59 18:59 Intake Total 20 Output Total 1025 300 Balance -1005 -300 Weight 66 kg Intake: IV 20 Invasive Line 1 20 Output: Urine 1025 300 Other: Voiding Method Indwelling Catheter Indwelling Catheter - Labs CBC & Chem 7: 06/27/22 07:56 06/27/22 07:56 Labs: Abnormal Lab Results - Last 24 Hours (Table) 06/26/22 06/26/22 06/26/22 Range/Units 09:15 09:15 11:33 RBC 2.47 L (4.30-5.90) m/uL Hgb 7.8 L (13.0-17.5) gm/dL Hct 23.0 L (39.0-53.0) % Plt Count 128 L (150-450) k/uL Neutrophils # 8.8 H (1.3-7.7) k/uL Lymphocytes # 0.4 L (1.0-4.8) k/uL Sodium 126 L (137-145) mmol/L Potassium 3.0 L (3.5-5.1) mmol/L Chloride 96 L (98-107) mmol/L Carbon Dioxide 21 L (22-30) mmol/L BUN 33 H (9-20) mg/dL Glucose 127 H (74-99) mg/dL POC Glucose (mg/dL) 140 H (70-110) mg/dL Calcium 7.0 L (8.4-10.2) mg/dL Ionized Calcium Li (4.5-5.3) mg/dL 06/26/22 06/26/22 06/26/22 Range/Units 11:57 16:33 20:08 RBC (4.30-5.90) m/uL Hgb (13.0-17.5) gm/dL Hct (39.0-53.0) % Plt Count (150-450) k/uL Neutrophils # (1.3-7.7) k/uL Lymphocytes # (1.0-4.8) k/uL Sodium (137-145) mmol/L Potassium (3.5-5.1) mmol/L Chloride (98-107) mmol/L Carbon Dioxide (22-30) mmol/L BUN (9-20) mg/dL Glucose (74-99) mg/dL POC Glucose (mg/dL) 137 H 140 H (70-110) mg/dL Calcium (8.4-10.2) mg/dL Ionized Calcium Il 4.4 L (4.5-5.3) mg/dL 06/27/22 06/27/22 Range/Units 05:49 07:56 RBC 2.71 L (4.30-5.90) m/uL Hgb 8.7 L (13.0-17.5) gm/dL Hct 25.1 L (39.0-53.0) % Plt Count (150-450) k/uL Neutrophils # 9.0 H (1.3-7.7) k/uL Lymphocytes # 0.5 L (1.0-4.8) k/uL Sodium (137-145) mmol/L Potassium (3.5-5.1) mmol/L Chloride (98-107) mmol/L Carbon Dioxide (22-30) mmol/L BUN (9-20) mg/dL Glucose (74-99) mg/dL POC Glucose (mg/dL) 160 H (70-110) mg/dL Calcium (8.4-10.2) mg/dL Ionized Calcium Li (4.5-5.3) mg/dL
--- NOTE | 2022-06-27 11:30 | P.PN ---
Subjective Progress Note Date: 06/27/22 Patient is seen today, lying down in bed, requiring BiPAP. Not interactive with exam. Improving Na. Ongoing diuretics. Attempt to wean BIPAP today. Gen: Asleep, comfortable HEENT: normocephalic, atraumatic, good hearing acuity, moist mucous membranes Resp: good air exchange, breathing comfortably with no accessory muscle use, bilateral crackles CVS: good distal perfusion x 4, regular rate and rhythm GI: soft, NTTP, ND : no SPT, no CVAT, fitch catheter is present MSK: Present pitting edema, no clubbing Neuro: non-focal, moving all extremities Psych: cooperative, euthymic mood Assessment/plan: Severe hyponatremia, hypervolemic Acute on chronic systolic Heart Failure Exacerbation, EF is mildly to moderately reduced per Echo on 05/26/22 -Fluid restriction, diuresis -Nephrology consult, received tolvaptan -Monitor BMP -Cardiology consult -Echo is pending -Consider palliative care, however, son has unrealistic expectations of patient's outcome despite counseling on multiple occasions Altered mental status, possibly secondary to severe hyponatremia versus worsening Parkinson's Severe protein calorie malnutrition -Neurology consulted -Resume patient's Sinemet -Swallow evaluation -Nutrition evaluation for calorie count -Provide supplements, consideration of enteral feeding Chronic conditions: Type II DM, coronary artery disease, stage IV prostate cancer -Continue with home meds -Insulin sliding scale with blood glucose monitoring DVT prophylaxis -Heparin subq CODE STATUS: Full Code Anticipated discharge date: 3-[address]: Home with home care, patient's family is declining rehab Objective - Vital Signs Vital signs: Vital Signs Temp 97.4 F L 06/27/22 09:02 Pulse 97 06/27/22 09:03 Resp 18 06/27/22 09:03 BP 149/97 06/27/22 09:02 Pulse Ox 97 06/27/22 09:02 FiO2 30 06/26/22 16:28 Intake & Output 06/26/22 06/27/22 06/27/22 18:59 06:59 18:59 Intake Total 20 10 Output Total 1025 300 175 Balance -1005 -300 -165 Weight 66 kg Intake: IV 20 10 Invasive Line 1 20 10 Output: Urine 1025 300 175 Other: Voiding Method Indwelling Catheter Indwelling Catheter Indwelling Catheter - Labs CBC & Chem 7: 06/27/22 07:56 06/27/22 07:56 Labs: Abnormal Lab Results - Last 24 Hours (Table) 06/26/22 06/26/22 06/26/22 Range/Units 11:33 11:57 16:33 RBC (4.30-5.90) m/uL Hgb (13.0-17.5) gm/dL Hct (39.0-53.0) % Neutrophils # (1.3-7.7) k/uL Lymphocytes # (1.0-4.8) k/uL Sodium (137-145) mmol/L Carbon Dioxide (22-30) mmol/L BUN (9-20) mg/dL Glucose (74-99) mg/dL POC Glucose (mg/dL) 140 H 137 H (70-110) mg/dL Calcium (8.4-10.2) mg/dL Ionized Calcium Li 4.4 L (4.5-5.3) mg/dL 06/26/22 06/27/22 06/27/22 Range/Units 20:08 05:49 07:56 RBC (4.30-5.90) m/uL Hgb (13.0-17.5) gm/dL Hct (39.0-53.0) % Neutrophils # (1.3-7.7) k/uL Lymphocytes # (1.0-4.8) k/uL Sodium 131 L (137-145) mmol/L Carbon Dioxide 19 L (22-30) mmol/L BUN 33 H (9-20) mg/dL Glucose 127 H (74-99) mg/dL POC Glucose (mg/dL) 140 H 160 H (70-110) mg/dL Calcium 7.1 L (8.4-10.2) mg/dL Ionized Calcium Li (4.5-5.3) mg/dL 06/27/22 Range/Units 07:56 RBC 2.71 L (4.30-5.90) m/uL Hgb 8.7 L (13.0-17.5) gm/dL Hct 25.1 L (39.0-53.0) % Neutrophils # 9.0 H (1.3-7.7) k/uL Lymphocytes # 0.5 L (1.0-4.8) k/uL Sodium (137-145) mmol/L Carbon Dioxide (22-30) mmol/L BUN (9-20) mg/dL Glucose (74-99) mg/dL POC Glucose (mg/dL) (70-110) mg/dL Calcium (8.4-10.2) mg/dL Ionized Calcium Li (4.5-5.3) mg/dL
[2022-06-27] MEDS: MORPHINE SULFATE 2 MG/ML SYRINGE IVP PRN ×2 (11:34→16:26)
[2022-06-27 11:43] LABS: Glucose,Whole Blood 148 mg/dL (70-110)
--- NOTE | 2022-06-27 16:34 | P.PN ---
Subjective Progress Note Date: 06/27/22 I am seeing the patient for the first time during this admission. It seems the patient has Parkinson's disease and has confusion episodes which is improving. Please refer to Dr. Beckett's notes for further details. Objective - Vital Signs Vital signs: Vital Signs Temp 97.7 F 06/27/22 11:33 Pulse 99 06/27/22 11:33 Resp 18 06/27/22 11:33 BP 120/79 06/27/22 11:33 Pulse Ox 99 06/27/22 11:40 FiO2 30 06/26/22 16:28 Intake & Output 06/26/22 06/27/22 06/27/22 18:59 06:59 18:59 Intake Total 20 10 Output Total 1025 300 175 Balance -1005 -300 -165 Weight 66 kg Intake: IV 20 10 Invasive Line 1 20 10 Output: Urine 1025 300 175 Other: Voiding Method Indwelling Catheter Indwelling Catheter Indwelling Catheter - Exam GENERAL: The patient is lying in bed and is not in acute distress. NEUROLOGICAL: Higher mental function: The patient is awake, alert, oriented to self. Correctly stated the year but stated the current month is April. Stated he was in the hospital. Correctly name objects (watch and glasses). Is following simple commands. No aphasia or neglect. , Cranial nerves: EOM intact and no nystagmus. The facial strength is normal throughout. Hypophonia. Motor: The strength is lifting all uppers above gravity and no focality. No resting or acting tremor. - Labs CBC & Chem 7: 06/27/22 07:56 06/27/22 07:56 Labs: Abnormal Lab Results - Last 24 Hours (Table) 06/26/22 06/26/22 06/27/22 Range/Units 16:33 20:08 05:49 RBC (4.30-5.90) m/uL Hgb (13.0-17.5) gm/dL Hct (39.0-53.0) % Neutrophils # (1.3-7.7) k/uL Lymphocytes # (1.0-4.8) k/uL Sodium (137-145) mmol/L Carbon Dioxide (22-30) mmol/L BUN (9-20) mg/dL Glucose (74-99) mg/dL POC Glucose (mg/dL) 137 H 140 H 160 H (70-110) mg/dL Calcium (8.4-10.2) mg/dL 06/27/22 06/27/22 06/27/22 Range/Units 07:56 07:56 11:40 RBC 2.71 L (4.30-5.90) m/uL Hgb 8.7 L (13.0-17.5) gm/dL Hct 25.1 L (39.0-53.0) % Neutrophils # 9.0 H (1.3-7.7) k/uL Lymphocytes # 0.5 L (1.0-4.8) k/uL Sodium 131 L (137-145) mmol/L Carbon Dioxide 19 L (22-30) mmol/L BUN 33 H (9-20) mg/dL Glucose 127 H (74-99) mg/dL POC Glucose (mg/dL) 148 H (70-110) mg/dL Calcium 7.1 L (8.4-10.2) mg/dL Assessment and Plan Assessment: * Altered mental status, likely due to toxic metabolic encephalopathy. Reasons multifactorial as mentioned below---mentation improving * Electrolye derangement (Hyponatremia, hypocalcemia) * Acute pulmonary edema * Metastatic prostate cancer with bony metastasis * CAD * Diabetes * Hyperlipidemia * Hypertension * Parkinson's disease Plan: * Dr. Beckett discontinued amantadine during this hospital visit. It can cause urinary retention and behavioral changes/confusions. * Continue Sinemet at his home dose (50-200mg ER 1 tab tid), when able to s wallow. The son does not want NG tube or PEG tube and wants his repeat swallowing tomorrow since feels he is doing better. * Speech therapy evaluation. * Treatment of other medical conditions as per IM and other specialties. * Prognosis is very guarded to poor based upon multiple comorbid conditions i ncluding terminal prostate cancer. The plan is discussed with patient and his son (who is at bedside). Time with Patient: Less than 30
[2022-06-27 16:43] LABS: Glucose,Whole Blood 138 mg/dL (70-110)
[2022-06-27 20:11] LABS: Glucose,Whole Blood 131 mg/dL (70-110)
[2022-06-27] MEDS: NON FORMULARY DRUG (Enzalutamide [Xtandi] 40 MG Capsule) PO SCH (20:42)
[2022-06-28] MEDS: METOPROLOL TARTRATE 5 MG/5 ML VIAL IVP PRN (05:33)
[2022-06-28] MEDS ORDERED: DILTIAZEM DRIP BOLUS FROM BAG 1 MG SOLN IV ONE (05:56)
[2022-06-28 06:18] LABS: Glucose,Whole Blood 194 mg/dL (70-110)
[2022-06-28] MEDS: INSULIN ASPART (NovoLOG) 100 UNIT/ML VIAL SQ SCH ×4 (06:20→20:51)
[2022-06-28] MEDS: DILTIAZEM 125 MG in SODIUM CHLORIDE 0.9% 100 ML IV SCH ×2 (06:20→16:27)
[2022-06-28] MEDS: ASPIRIN 81 MG PO SCH (08:51)
[2022-06-28] MEDS: FUROSEMIDE 10 MG/ML 2 ML VIAL IV SCH ×2 (08:51→20:51)
[2022-06-28] MEDS: TAMSULOSIN 0.4 MG CAP.ER.24H PO SCH (08:51)
[2022-06-28] MEDS: HEPARIN SODIUM,PORCINE/PF 5,000 UNIT/0.5 ML SYRINGE SQ SCH ×2 (08:51→16:26)
[2022-06-28] MEDS: GABAPENTIN 100 MG CAP PO SCH ×3 (08:52→20:08)
[2022-06-28] MEDS: CARBIDOPA-LEVODOPA ER 50-200MG 1 EACH TABLET.ER PO SCH ×3 (08:52→20:08)
[2022-06-28 09:01] LABS: Basophils % (A) 0 %; Eosinophils # (A) 0.1 k/uL (0-0.7); Eosinophils % (A) 1 %; HCT 25.9 % (39.0-53.0); HGB 8.8 gm/dL (13.0-17.5); Lymphocytes # (A) 0.4 k/uL (1.0-4.8); Lymphocytes % (A) 7 %; MCHC 34.1 g/dL (31.0-37.0); Mean Platelet Volume 8.4; Monocytes # (A) 0.3 k/uL (0-1.0); Monocytes % (A) 5 %; Neutrophils # (A) 5.3 k/uL (1.3-7.7); Neutrophils % (A) 86 %; Platelet Count 186 k/uL (150-450); RBC 2.75 m/uL (4.30-5.90); RDW 14.4 % (11.5-15.5); WBC 6.2 k/uL (3.8-10.6)
[2022-06-28 09:22] LABS: Calcium 6.8 mg/dL (8.4-10.2); Magnesium 2.2 mg/dL (1.6-2.3); Potassium 3.8 mmol/L (3.5-5.1)
--- NOTE | 2022-06-28 10:47 | P.PN ---
Subjective This is a pleasant 87-year-old male past medical history significant for stage IV prostate cancer with metastatis to bone, Parkinson's disease, type 2 diabetes, hypertension, Parkinson's disease, coronary artery disease with PCI to mid left circumflex and distal RCA in 2018, PCI PLV branch of RCA in 02/2021, ischemic cardiomyopathy with an EF of 40-45%. He did follow in the office with Dr. Barros. We have been asked to see in consultation for congestive heart failure. Patient presented to the ER by his son for increased altered mental sta tus and failure to thrive. Patient was started on IV Lasix yesterday. Patient seen and examined at bedside, son at bedside. Patient is lethargic, appears malnutrition and dehydrated. No complaints of chest pain or shortness of breath. BP are stable. Continues to have episodes of tachycardia in patient started on IV Cardizem overnight. He has not passed a swallow evaluation. Telemetry reviewed, appears in sinus rhythm becomes tachycardic at time, appeared to go into possible SVT but spontaneously converts to sinus rhythm. Able to repeat an EKG which appears to be accelerated junctional rhythm. Chest xray yesterday has improved from 06/24. Labs, sodium 135, potassium 3.8, BUN 41, serum creatinine 1.0, magnesium 2.2 GENERAL: Lethargic, frail, In no acute distress. NECK: Supple without JVD LUNGS: Breath sounds crackles mild in the bases to auscultation bilaterally. Respiration equal and unlabored. No wheezes, rales or rhonchi. HEART: Regular rate and rhythm without murmurs, rubs or gallops. S1 and S2 heard. EXTREMITIES: No edema. No clubbing or cyanosis. Peripheral pulses intact. ASSESSMENT Acute on chronic heart failure with mildly reduced ejection fraction Accelerated junctional rhythm Episodes of SVT Altered mental status Failure to thrive Stage IV prostate cancer with metastatis to bone Parkinson's disease Type 2 diabetes Hypertension Coronary artery disease with PCI to mid left circumflex and distal RCA in 2018, PCI PLV branch of RCA in 02/2021 Ischemic cardiomyopathy with an EF of 40-45% PLAN Recommend possible transition to PO Lasix, discussed with nephrology Patient currently unable to take PO medications, Continue IV Cardizem. Prognosis is guarded Rest of management per primary Further recommendations based on clinical course Nurse Practitioner note has been reviewed, I agree with a documented findings and plan of care. Patient was seen and examined. Objective - Vital Signs Vital signs: Vital Signs Temp 98.0 F 06/28/22 08:45 Pulse 45 L 06/28/22 08:45 Resp 17 06/28/22 08:45 BP 145/69 06/28/22 08:45 Pulse Ox 98 06/28/22 08:45 FiO2 30 06/26/22 16:28 Intake & Output 06/27/22 06/28/22 06/28/22 18:59 06:59 18:59 Intake Total 20 10 Output Total 475 725 Balance -455 -715 Weight 66 kg 63 kg Intake: IV 20 10 0.9 10 Invasive Line 1 20 Output: Urine 475 725 Other: Voiding Method Indwelling Catheter Indwelling Catheter Indwelling Catheter - Labs CBC & Chem 7: 06/28/22 08:09 06/28/22 08:09 Labs: Abnormal Lab Results - Last 24 Hours (Table) 06/27/22 06/27/22 06/27/22 Range/Units 11:40 16:41 20:10 RBC (4.30-5.90) m/uL Hgb (13.0-17.5) gm/dL Hct (39.0-53.0) % Lymphocytes # (1.0-4.8) k/uL Sodium (137-145) mmol/L Carbon Dioxide (22-30) mmol/L BUN (9-20) mg/dL Glucose (74-99) mg/dL POC Glucose (mg/dL) 148 H 138 H 131 H (70-110) mg/dL Calcium (8.4-10.2) mg/dL 06/28/22 06/28/22 06/28/22 Range/Units 06:14 08:09 08:09 RBC 2.75 L (4.30-5.90) m/uL Hgb 8.8 L (13.0-17.5) gm/dL Hct 25.9 L (39.0-53.0) % Lymphocytes # 0.4 L (1.0-4.8) k/uL Sodium 135 L (137-145) mmol/L Carbon Dioxide 21 L (22-30) mmol/L BUN 41 H (9-20) mg/dL Glucose 159 H (74-99) mg/dL POC Glucose (mg/dL) 194 H (70-110) mg/dL Calcium 6.8 L (8.4-10.2) mg/dL
[2022-06-28] MEDS ORDERED: POTASSIUM CHLORIDE 20 MEQ in WATER FOR INJECTION 1 100ML.BAG IVPB STA (11:50)
--- NOTE | 2022-06-28 11:51 | P.PN ---
Subjective Patient is seen in follow-up for hyponatremia. Sodium level improved. Resting in bed. On nasal cannula. No by mouth intake as failed swallow eval. Quite lethargic. Nonoliguric. On IV Lasix. Son present at bedside. Vital signs are stable. General: Resting in bed. HEENT: Head exam is unremarkable. On nasal cannula. LUNGS: Breath sounds decreased. HEART: Rate and Rhythm are regular. ABDOMEN: Soft, no distention. EXTREMITITES: No edema. Objective - Vital Signs Vital signs: Vital Signs Temp 97.5 F L 06/28/22 11:14 Pulse 138 H 06/28/22 11:14 Resp 18 06/28/22 11:14 BP 110/65 06/28/22 11:14 Pulse Ox 99 06/28/22 11:14 FiO2 30 06/26/22 16:28 Intake & Output 06/27/22 06/28/22 06/28/22 18:59 06:59 18:59 Intake Total 20 10 Output Total 475 725 Balance -455 -715 Weight 66 kg 63 kg Intake: IV 20 10 0.9 10 Invasive Line 1 20 Output: Urine 475 725 Other: Voiding Method Indwelling Catheter Indwelling Catheter Indwelling Catheter - Labs CBC & Chem 7: 06/28/22 08:09 06/28/22 08:09 Labs: Abnormal Lab Results - Last 24 Hours (Table) 06/27/22 06/27/22 06/28/22 Range/Units 16:41 20:10 06:14 RBC (4.30-5.90) m/uL Hgb (13.0-17.5) gm/dL Hct (39.0-53.0) % Lymphocytes # (1.0-4.8) k/uL Sodium (137-145) mmol/L Carbon Dioxide (22-30) mmol/L BUN (9-20) mg/dL Glucose (74-99) mg/dL POC Glucose (mg/dL) 138 H 131 H 194 H (70-110) mg/dL Calcium (8.4-10.2) mg/dL 06/28/22 06/28/22 Range/Units 08:09 08:09 RBC 2.75 L (4.30-5.90) m/uL Hgb 8.8 L (13.0-17.5) gm/dL Hct 25.9 L (39.0-53.0) % Lymphocytes # 0.4 L (1.0-4.8) k/uL Sodium 135 L (137-145) mmol/L Carbon Dioxide 21 L (22-30) mmol/L BUN 41 H (9-20) mg/dL Glucose 159 H (74-99) mg/dL POC Glucose (mg/dL) (70-110) mg/dL Calcium 6.8 L (8.4-10.2) mg/dL Assessment and Plan Plan: assessment: 1. Hyponatremia from poor solute intake. Hypervolemic. Improving. On IV Lasix. Also received Samsca this admission. Sodium level 135 this morning. Urine sodium less than 20. Urine osmolality 554. TSH normal. 2. Acute hypoxic respiratory failure secondary to volume overload. 3. Prostate cancer with metastatic disease. 4. Benign hypertension. Stable. 5. Diabetes mellitus. 6. Parkinson's disease. Neurology following. 7. Urinary retention. Edward catheter placed. On Flomax. No hydronephrosis noted on kidney ultrasound. Left kidney not visualized. 8. Hypokalemia from poor intake and diuresis. Replaced. Better. 10. A. fib with RVR maintain on Cardizem drip. Plan: 1200 mL fluid restriction. Maintain IV Lasix 20 mg twice daily - will change to by mouth once able to tolerate oral intake. Replace potassium. Check chest x-ray. Repeat labs in the morning. Prognosis guarded.
--- NOTE | 2022-06-28 12:04 | FL ---
INDICATION: Patient age:Male; 87 years old; Reason for study: r/o aspiration; PHH. COMPARISON: None TECHNIQUE: Utilizing real-time video recording fluoroscopy, multiple images were obtained after admin istration of various consistencies of barium contrast. A speech pathologist was present throughout the exam. Fluoroscopic time: 31 seconds FINDINGS: Consistencies administered: Thin and puree. During the oral phase there is poor formation of food brooke us with delayed initiation of swallow. There is incomplete swallowing with both attempts of thin and puree consistencies with barium remaining in the vallecular space. No progression of barium into the esophagus despite repeated attempts. Cannot assess for aspiration due to incomplete swelling. IMPRESSION: Limited evaluation with incomplete swallowing with barium remaining in the vallecular space. No progr ession of barium into the esophagus despite multiple repeated attempts by the patient. Cannot assess for aspiration. Please see dedicated speech pathology report for additional information.
[2022-06-28 12:10] LABS: Glucose,Whole Blood 173 mg/dL (70-110)
--- NOTE | 2022-06-28 12:46 | P.PN ---
Subjective Progress Note Date: 06/28/22 Principal diagnosis: altered mental status Hospital Course: 87-year-old male with history of stage IV prostate cancer with bone metastases, Parkinson's disease, type 2 diabetes, hypertension, CAD status post PCI, ischemic cardiomyopathy with an EF of 40-45% stented with altered mental status and failure to thrive. Initially found to have severe hypervolemic hyponatremia likely in setting of CHF exacerbation. Patient was evaluated by cardiology and nephrology. Sodium improved with diuretics. Altered mental status likely secondary to severe hyponatremia versus worsening Parkinson's. Neurology was consulted. Amantadine was discontinued as it can potentially cause urinary retention and behavioral changes/confusion. Sinemet was continued. Patient had swallow evaluation, failed. Modified barium swallow also failed. Patient's son would prefer to eventually take him home with a feeding tube, the patient's daughter does not believe that is the right course. Patient has not signed anyone has his primary decision maker. Subjective: Patient seen and examined at bedside. No acute events overnight. He continues to have difficulty swallowing. He denies any chest pain, shortness of breath, abdominal pain. Pertinent positives and negatives as discussed above, a complete review of systems was performed and all other systems are negative. Vitals Signs Reviewed. General: nontoxic, no distress, appears at stated age, cachectic Derm: warm, dry Head: atraumatic, normocephalic, symmetric Eyes: EOMI, no lid lag, anicteric sclera Mouth: no lip lesion, mucus membranes moist Cardiovascular: S1S2 reg, no murmur Lungs: CTA bilateral, no rhonchi, no rales , no accessory muscle use Abdominal: soft, nontender to palpation, no guarding, no appreciable organomegaly Ext: no edema, no contractures Neuro: CN II-XI grossly intact, no focal neuro deficits Psych: Alert, oriented, appropriate affect Assessment and Plan: Severe hyponatremia, hypervolemic - improving Acute on chronic systolic Heart Failure Exacerbation, EF is mildly to moderately reduced per Echo on 05/26/22 -Fluid restriction, diuresis IV -Nephrology consult, received tolvaptan -Monitor BMP -Cardiology consult -Echo is pending -Consider palliative care, however, son has unrealistic expectations of patient's outcome despite counseling on multiple occasions Wide complex tachycardia - prior EKG, possible AFib - started on cardizem gtt per cardiology Altered mental status, possibly secondary to severe hyponatremia versus worsening Parkinson's Severe protein calorie malnutrition -Neurology consulted -Resume patient's Sinemet -holding amantadine -Patient failed MBS -will continue to address feeding status with son and daughter Chronic conditions: Type II DM, coronary artery disease, stage IV prostate cancer -Continue with home meds -Insulin sliding scale with blood glucose monitoring DVT prophylaxis -Heparin subq CODE STATUS: Full Code Anticipated discharge date: 3-[address]: Home with home care, patient's family is declining rehab Objective - Vital Signs Vital signs: Vital Signs Temp 97.5 F L 06/28/22 11:14 Pulse 138 H 06/28/22 11:14 Resp 18 06/28/22 11:14 BP 110/65 06/28/22 11:14 Pulse Ox 99 06/28/22 11:14 FiO2 30 06/26/22 16:28 Intake & Output 06/27/22 06/28/22 06/28/22 18:59 06:59 18:59 Intake Total 20 10 Output Total 475 725 Balance -455 -715 Weight 66 kg 63 kg Intake: IV 20 10 0.9 10 Invasive Line 1 20 Output: Urine 475 725 Other: Voiding Method Indwelling Catheter Indwelling Catheter Indwelling Catheter - Labs CBC & Chem 7: 06/28/22 08:09 06/28/22 08:09 Labs: Abnormal Lab Results - Last 24 Hours (Table) 06/27/22 06/27/22 06/28/22 Range/Units 16:41 20:10 06:14 RBC (4.30-5.90) m/uL Hgb (13.0-17.5) gm/dL Hct (39.0-53.0) % Lymphocytes # (1.0-4.8) k/uL Sodium (137-145) mmol/L Carbon Dioxide (22-30) mmol/L BUN (9-20) mg/dL Glucose (74-99) mg/dL POC Glucose (mg/dL) 138 H 131 H 194 H (70-110) mg/dL Calcium (8.4-10.2) mg/dL 06/28/22 06/28/22 06/28/22 Range/Units 08:09 08:09 12:07 RBC 2.75 L (4.30-5.90) m/uL Hgb 8.8 L (13.0-17.5) gm/dL Hct 25.9 L (39.0-53.0) % Lymphocytes # 0.4 L (1.0-4.8) k/uL Sodium 135 L (137-145) mmol/L Carbon Dioxide 21 L (22-30) mmol/L BUN 41 H (9-20) mg/dL Glucose 159 H (74-99) mg/dL POC Glucose (mg/dL) 173 H (70-110) mg/dL Calcium 6.8 L (8.4-10.2) mg/dL
--- NOTE | 2022-06-28 14:35 | P.PN ---
Subjective Progress Note Date: 06/28/22 The patient is seen at bedside and per nurse is about the same. The son still wants re-evaluation for swallow and wants to hold NG or PEG tube for now. Objective - Vital Signs Vital signs: Vital Signs Temp 97.5 F L 06/28/22 11:14 Pulse 138 H 06/28/22 11:14 Resp 18 06/28/22 11:14 BP 110/65 06/28/22 11:14 Pulse Ox 99 06/28/22 11:14 FiO2 30 06/26/22 16:28 Intake & Output 06/27/22 06/28/22 06/28/22 18:59 06:59 18:59 Intake Total 20 10 Output Total 475 725 Balance -455 -715 Weight 66 kg 63 kg Intake: IV 20 10 0.9 10 Invasive Line 1 20 Output: Urine 475 725 Other: Voiding Method Indwelling Catheter Indwelling Catheter Indwelling Catheter - Exam GENERAL: The patient is lying in bed and is not in acute distress. NEUROLOGICAL: Higher mental function: The patient is awake, alert, oriented to self. Correctly stated the year but stated the current month is April. Stated he was in the hospital. Correctly name objects (watch and glasses). Is following simple commands. No aphasia or neglect. , Cranial nerves: EOM intact and no nystagmus. The facial strength is normal throughout. Hypophonia. Motor: The strength is lifting all uppers above gravity and no focality. No resting or acting tremor. - Labs CBC & Chem 7: 06/28/22 08:09 06/28/22 08:09 Labs: Abnormal Lab Results - Last 24 Hours (Table) 06/27/22 06/27/22 06/28/22 Range/Units 16:41 20:10 06:14 RBC (4.30-5.90) m/uL Hgb (13.0-17.5) gm/dL Hct (39.0-53.0) % Lymphocytes # (1.0-4.8) k/uL Sodium (137-145) mmol/L Carbon Dioxide (22-30) mmol/L BUN (9-20) mg/dL Glucose (74-99) mg/dL POC Glucose (mg/dL) 138 H 131 H 194 H (70-110) mg/dL Calcium (8.4-10.2) mg/dL 06/28/22 06/28/22 06/28/22 Range/Units 08:09 08:09 12:07 RBC 2.75 L (4.30-5.90) m/uL Hgb 8.8 L (13.0-17.5) gm/dL Hct 25.9 L (39.0-53.0) % Lymphocytes # 0.4 L (1.0-4.8) k/uL Sodium 135 L (137-145) mmol/L Carbon Dioxide 21 L (22-30) mmol/L BUN 41 H (9-20) mg/dL Glucose 159 H (74-99) mg/dL POC Glucose (mg/dL) 173 H (70-110) mg/dL Calcium 6.8 L (8.4-10.2) mg/dL Assessment and Plan Assessment: * Altered mental status, likely due to toxic metabolic encephalopathy. Reasons multifactorial as mentioned below---mentation improving * Electrolye derangement (Hyponatremia, hypocalcemia) * Acute pulmonary edema * Metastatic prostate cancer with bony metastasis * CAD * Diabetes * Hyperlipidemia * Hypertension * Parkinson's disease Plan: * Dr. Bekcett discontinued amantadine during this hospital visit. It can cause urinary retention and behavioral changes/confusions. * Continue Sinemet at his home dose (50-200mg ER 1 tab tid), when able to swallow. The son does not want NG tube or PEG tube and wants his repeat swallowing tomorrow since feels he is doing better. * Speech therapy evaluation. * Treatment of other medical conditions as per IM and other specialties. * Prognosis is very guarded to poor based upon multiple comorbid conditions including terminal prostate cancer. . Time with Patient: Less than 30
[2022-06-28] MEDS: NON FORMULARY DRUG (Enzalutamide [Xtandi] 40 MG Capsule) PO SCH (20:08)
[2022-06-28 20:18] LABS: Glucose,Whole Blood 160 mg/dL (70-110)
[2022-06-29] MEDS: HEPARIN SODIUM,PORCINE/PF 5,000 UNIT/0.5 ML SYRINGE SQ SCH ×3 (01:06→17:23)
[2022-06-29 06:08] LABS: Glucose,Whole Blood 191 mg/dL (70-110)
[2022-06-29] MEDS: DILTIAZEM 125 MG in SODIUM CHLORIDE 0.9% 100 ML IV SCH ×2 (06:30→20:56)
[2022-06-29] MEDS: INSULIN ASPART (NovoLOG) 100 UNIT/ML VIAL SQ SCH ×4 (06:30→20:44)
[2022-06-29 08:36] LABS: Calcium 6.6 mg/dL (8.4-10.2); Magnesium 2.4 mg/dL (1.6-2.3); Potassium 3.9 mmol/L (3.5-5.1)
[2022-06-29] MEDS: CARBIDOPA-LEVODOPA ER 50-200MG 1 EACH TABLET.ER PO SCH ×3 (09:19→20:44)
[2022-06-29] MEDS: TAMSULOSIN 0.4 MG CAP.ER.24H PO SCH (09:19)
[2022-06-29] MEDS: ASPIRIN 81 MG PO SCH (09:19)
[2022-06-29] MEDS: GABAPENTIN 100 MG CAP PO SCH ×3 (09:19→20:44)
[2022-06-29] MEDS: FUROSEMIDE 10 MG/ML 2 ML VIAL IV SCH ×2 (09:22→20:51)
--- NOTE | 2022-06-29 10:02 | P.PN ---
Subjective This is a pleasant 87-year-old male past medical history significant for stage IV prostate cancer with metastatis to bone, Parkinson's disease, type 2 diabetes, hypertension, Parkinson's disease, coronary artery disease with PCI to mid left circumflex and distal RCA in 2018, PCI PLV branch of RCA in 02/2021, ischemic cardiomyopathy with an EF of 40-45%. He did follow in the office with Dr. Barros. We have been asked to see in consultation for congestive heart failure. Patient presented to the ER by his son for increased altered mental sta tus and failure to thrive. Patient was started on IV Lasix yesterday. Patient seen and examined at bedside, son at bedside. No significant changes over the past 24 hours. Family discussing goals of care. Currently still a full code. Patient is lethargic, appears malnutrition and dehydrated. No complaints of chest pain or shortness of breath. BP are stable. Heart rates have improved and is still on IV Cardizem, is unable to take PO medications. He has not passed a swallow evaluation. Telemetry reviewed, appears in sinus rhythm. Labs, sodium 139, potassium 2.9, BUN 51, serum creatinine 0.9, magnesium 2.4 GENERAL: Lethargic, frail, In no acute distress. NECK: Supple without JVD LUNGS: Breath sounds crackles mild in the bases to auscultation bilaterally. Respiration equal and unlabored. No wheezes, rales or rhonchi. HEART: Regular rate and rhythm without murmurs, rubs or gallops. S1 and S2 heard. EXTREMITIES: No edema. No clubbing or cyanosis. Peripheral pulses intact. ASSESSMENT Acute on chronic heart failure with mildly reduced ejection fraction Accelerated junctional rhythm Episodes of SVT Altered mental status Failure to thrive Stage IV prostate cancer with metastatis to bone Parkinson's disease Type 2 diabetes Hypertension Coronary artery disease with PCI to mid left circumflex and distal RCA in 2018, PCI PLV branch of RCA in 02/2021 Ischemic cardiomyopathy with an EF of 40-45% PLAN Patient currently unable to take PO medications, Continue IV Cardizem. Prognosis is guarded Rest of management per primary Goals of care Prognosis is poor Further recommendations based on clinical course Nurse Practitioner note has been reviewed, I agree with a documented findings and plan of care. Patient was seen and examined. Objective - Vital Signs Vital signs: Vital Signs Temp 97.9 F 06/29/22 08:00 Pulse 83 06/29/22 08:00 Resp 18 06/29/22 08:00 BP 139/66 06/29/22 08:00 Pulse Ox 100 06/29/22 08:00 FiO2 30 06/26/22 16:28 Intake & Output 06/28/22 06/29/22 06/29/22 18:59 06:59 18:59 Intake Total 101.167 125 Output Total 525 Balance 101.167 -400 Weight 61 kg Intake: Intake, IV Titration 101.167 125 Amount Diltiazem 125 mg In 101.167 125 Sodium Chloride 0.9% 100 ml @ 10 MG/HR 10 mls/hr IV .[id number] [facility] Rx#: [id number] Oral 0 Output: Urine 525 Uretheral (Edward) 225 Other: Voiding Method Indwelling Catheter Indwelling Catheter Indwelling Catheter # Voids 0 # Bowel Movements 0 - Labs CBC & Chem 7: 06/28/22 08:09 06/29/22 07:42 Labs: Abnormal Lab Results - Last 24 Hours (Table) 06/28/22 06/28/22 06/29/22 Range/Units 12:07 20:17 06:06 Chloride (98-107) mmol/L BUN (9-20) mg/dL Glucose (74-99) mg/dL POC Glucose (mg/dL) 173 H 160 H 191 H (70-110) mg/dL Calcium (8.4-10.2) mg/dL Magnesium (1.6-2.3) mg/dL 06/29/22 Range/Units 07:42 Chloride 108 H (98-107) mmol/L BUN 51 H (9-20) mg/dL Glucose 154 H (74-99) mg/dL POC Glucose (mg/dL) (70-110) mg/dL Calcium 6.6 L (8.4-10.2) mg/dL Magnesium 2.4 H (1.6-2.3) mg/dL
--- NOTE | 2022-06-29 11:09 | P.PN ---
Subjective Patient is seen in follow-up for hyponatremia. Sodium level normal. Resting in bed. On nasal cannula. NPO as failed swallow eval. Quite lethargic. Nonoliguric. On IV Lasix. Son present at bedside. Vital signs are stable. General: Resting in bed. HEENT: Head exam is unremarkable. On nasal cannula. LUNGS: Breath sounds decreased. HEART: Rate and Rhythm are regular. ABDOMEN: Soft, no distention. EXTREMITITES: No edema. Objective - Vital Signs Vital signs: Vital Signs Temp 97.9 F 06/29/22 08:00 Pulse 83 06/29/22 08:00 Resp 18 06/29/22 08:00 BP 139/66 06/29/22 08:00 Pulse Ox 100 06/29/22 08:00 FiO2 30 06/26/22 16:28 Intake & Output 06/28/22 06/29/22 06/29/22 18:59 06:59 18:59 Intake Total 101.167 125 Output Total 525 Balance 101.167 -400 Weight 61 kg Intake: Intake, IV Titration 101.167 125 Amount Diltiazem 125 mg In 101.167 125 Sodium Chloride 0.9% 100 ml @ 10 MG/HR 10 mls/hr IV .[id number] [facility] Rx#: [id number] Oral 0 Output: Urine 525 Uretheral (Edward) 225 Other: Voiding Method Indwelling Catheter Indwelling Catheter Indwelling Catheter # Voids 0 # Bowel Movements 0 - Labs CBC & Chem 7: 06/28/22 08:09 06/29/22 07:42 Labs: Abnormal Lab Results - Last 24 Hours (Table) 06/28/22 06/28/22 06/29/22 Range/Units 12:07 20:17 06:06 Chloride (98-107) mmol/L BUN (9-20) mg/dL Glucose (74-99) mg/dL POC Glucose (mg/dL) 173 H 160 H 191 H (70-110) mg/dL Calcium (8.4-10.2) mg/dL Magnesium (1.6-2.3) mg/dL 06/29/22 Range/Units 07:42 Chloride 108 H (98-107) mmol/L BUN 51 H (9-20) mg/dL Glucose 154 H (74-99) mg/dL POC Glucose (mg/dL) (70-110) mg/dL Calcium 6.6 L (8.4-10.2) mg/dL Magnesium 2.4 H (1.6-2.3) mg/dL Assessment and Plan Plan: assessment: 1. Hyponatremia from poor solute intake. Hypervolemic. Improving. On IV Lasix. Also received Samsca this admission. Sodium level 139 this morning. Urine sodium less than 20. Urine osmolality 554. TSH normal. 2. Acute hypoxic respiratory failure secondary to volume overload. Improved. 3. Prostate cancer with metastatic disease. 4. Benign hypertension. Stable. 5. Diabetes mellitus. 6. Parkinson's disease. Neurology following. 7. Urinary retention. Edward catheter placed. On Flomax. No hydronephrosis noted on kidney ultrasound. Left kidney not visualized. 8. Hypokalemia from poor intake and diuresis. Replaced. Better. 10. A. fib with RVR maintained on Cardizem drip. Plan: Transition to oral Lasix 20 mg twice a day once able to tolerate oral intake. Prognosis guarded.
--- NOTE | 2022-06-29 11:10 | P.PN ---
Subjective Progress Note Date: 06/29/22 Principal diagnosis: altered mental status Hospital Course: 87-year-old male with history of stage IV prostate cancer with bone metastases, Parkinson's disease, type 2 diabetes, hypertension, CAD status post PCI, ischemic cardiomyopathy with an EF of 40-45% stented with altered mental status and failure to thrive. Initially found to have severe hypervolemic hyponatremia likely in setting of CHF exacerbation. Patient was evaluated by cardiology and nephrology. Sodium improved with diuretics. Altered mental status likely secondary to severe hyponatremia versus worsening Parkinson's. Neurology was consulted. Amantadine was discontinued as it can potentially cause urinary retention and behavioral changes/confusion. Sinemet was continued. Patient had swallow evaluation, failed. Modified barium swallow also failed. Pending PEG tube placement, Surgery consulted. Subjective: Patient seen and examined at bedside. No acute events overnight. He continues to have difficulty swallowing. He denies any chest pain, shortness of breath, abdominal pain. Pertinent positives and negatives as discussed above, a complete review of systems was performed and all other systems are negative. Vitals Signs Reviewed. General: nontoxic, no distress, appears at stated age, cachectic Derm: warm, dry Head: atraumatic, normocephalic, symmetric Eyes: EOMI, no lid lag, anicteric sclera Mouth: no lip lesion, mucus membranes moist Cardiovascular: S1S2 reg, no murmur Lungs: CTA bilateral, no rhonchi, no rales , no accessory muscle use Abdominal: soft, nontender to palpation, no guarding, no appreciable organomegaly Ext: no edema, no contractures Neuro: CN II-XI grossly intact, no focal neuro deficits Psych: Alert, oriented, appropriate affect Assessment and Plan: Severe hyponatremia, hypervolemic - improving Acute on chronic systolic Heart Failure Exacerbation, EF is mildly to moderately reduced per Echo on 05/26/22 -Fluid restriction, diuresis IV -Nephrology consult, received tolvaptan -Monitor BMP -Cardiology consult Wide complex tachycardia - prior EKG, possible AFib - started on cardizem gtt per cardiology Altered mental status, possibly secondary to severe hyponatremia versus worsening Parkinson's Severe protein calorie malnutrition -Neurology consulted -Resume patient's Sinemet, however patient not able to swallow pills -holding amantadine -Patient failed MBS -PEG tube, surgery consulted Chronic conditions: Type II DM, coronary artery disease, stage IV prostate cancer -Continue with home meds -Insulin sliding scale with blood glucose monitoring DVT prophylaxis -Heparin subq CODE STATUS: Full Code Anticipated discharge date: 3-4 days, depending on if able to get to goal feeds Anticipated discharge place: Home with home care, patient's family is declining rehab Objective - Vital Signs Vital signs: Vital Signs Temp 97.9 F 06/29/22 08:00 Pulse 83 06/29/22 08:00 Resp 18 06/29/22 08:00 BP 139/66 06/29/22 08:00 Pulse Ox 100 06/29/22 08:00 FiO2 30 06/26/22 16:28 Intake & Output 06/28/22 06/29/22 06/29/22 18:59 06:59 18:59 Intake Total 101.167 125 Output Total 525 Balance 101.167 -400 Weight 61 kg Intake: Intake, IV Titration 101.167 125 Amount Diltiazem 125 mg In 101.167 125 Sodium Chloride 0.9% 100 ml @ 10 MG/HR 10 mls/hr IV .[id number] [facility] Rx#: [id number] Oral 0 Output: Urine 525 Uretheral (Edward) 225 Other: Voiding Method Indwelling Catheter Indwelling Catheter Indwelling Catheter # Voids 0 # Bowel Movements 0 - Labs CBC & Chem 7: 06/28/22 08:09 06/29/22 07:42 Labs: Abnormal Lab Results - Last 24 Hours (Table) 06/28/22 06/28/22 06/29/22 Range/Units 12:07 20:17 06:06 Chloride (98-107) mmol/L BUN (9-20) mg/dL Glucose (74-99) mg/dL POC Glucose (mg/dL) 173 H 160 H 191 H (70-110) mg/dL Calcium (8.4-10.2) mg/dL Magnesium (1.6-2.3) mg/dL 06/29/22 Range/Units 07:42 Chloride 108 H (98-107) mmol/L BUN 51 H (9-20) mg/dL Glucose 154 H (74-99) mg/dL POC Glucose (mg/dL) (70-110) mg/dL Calcium 6.6 L (8.4-10.2) mg/dL Magnesium 2.4 H (1.6-2.3) mg/dL
[2022-06-29 12:06] LABS: Glucose,Whole Blood 170 mg/dL (70-110)
--- NOTE | 2022-06-29 14:17 | P.GSCN ---
History of Present Illness Consult date: 06/29/22 History of present illness: CHIEF COMPLAINT: Altered mental status Reason for consult PEG tube placement HISTORY OF PRESENT ILLNESS: This is a 87-year-old male with a known history of stage IV prostate cancer with bone metastasis and Parkinson's disease. Patient presented to the hospital with altered mental status and felt to thrive. Patient had evidence of hyponatremia and CHF exacerbation. EF 40-45%. Patient did have episode of SVT. He is followed by cardiology currently on IV Cardizem and IV lasix. Patient has failed his swallow evaluation. Therefore surgical service has been consulted for PEG tube placement. Patient seen and examined with Dr. holland PAST MEDICAL HISTORY: Coronary Artery Disease (CAD), Cancer, Chest Pain / Angina, Diabetes Mellitus, Hyperlipidemia, Hypertension, Parkinson's,prostate cancer with bone metastasis and mets to sternum., Ischemic cardiomyopathy, PAST SURGICAL HISTORY: Heart catheterization with stent. No abdominal surgeries MEDICATIONS: See list. ALLERGIES: See list. SOCIAL HISTORY: No illicit drug use. REVIEW OF SYSTEMS: CONSTITUTIONAL: Denies fever or chills. HEENT: Denies blurred vision, vision changes, or eye pain. Denies hemoptysis CARDIOVASCULAR: Denies chest pain or pressure. RESPIRATORY: No shortness of breath. GASTROINTESTINAL: See HPI for pertinent findings HEMATOLOGIC: Denies bleeding disorders. GENITOURINARY: Denies any blood in urine or increased urinary frequency. SKIN: Denies pruitis. Denies rash. PHYSICAL EXAM: VITAL SIGNS: Reviewed GENERAL: no acute distress. HEENT: No sclera icterus. Extraocular movements grossly intact. Moist buccal mucosa. Head is atraumatic, normocephalic. No nasal drainage. ABDOMEN: Soft. Nondistended. Nondistended LABORATORY DATA: WBC 6.2 HGB 8.8 platelets 186 Sodium is 139 potassium is 3.9 creatinine 0.97 glucose 170 magnesium 2.4 Albumin 3.1 IMAGING: Barium swallow limited evaluation with incomplete swallowing with barium remaining in the vallecular space. No progression of barium into the esophagus despite multiple repeated attempts but the patient. ASSESSMENT: 1. Failed swallow evaluation 2. Dysphagia 3. Moderate protein calorie malnutrition 4. 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 Parkinson's disease PLAN: -Patient scheduled for EGD with PEG tube placement tomorrow with Dr. holland -Keep patient nothing by mouth after midnight Thank you for this consultation Physician Lumber Hacker note has been reviewed by physician. Signing provider agrees with the documented findings, assessment, and plan of care. Past Medical History Past Medical History: Coronary Artery Disease (CAD), Cancer, Chest Pain / Angina, Diabetes Mellitus, Hyperlipidemia, Hypertension, Neurologic Disorder Additional Past Medical History / Comment(s): Hx skin Cancer., parkinson's., hx nose bleed with packing, anemia, prostate cancer with bone metastasis and mets to sternum., back pain, hx falls-has elbow and hand wounds from falling and scratches on his face., constipation., cataracts, poor vision, [place]. History of Any Multi-Drug Resistant Organisms: None Reported Past Surgical History: Back Surgery, Heart Catheterization With Stent Additional Past Surgical History / Comment(s): Skin CA removed from L arm; Colonoscopies. Past Anesthesia/Blood Transfusion Reactions: No Reported Reaction, Family History of Problems w/ Anesthesia Additional Past Anesthesia/Blood Transfusion Reaction / Comm: son states his bloodpressure dropped during surgery and he is concerned about his Dad, would like his BP monitored closely- pt may not tell you is he is not feeling well. Date of Last Stent Placement:: 04/12/18 Past Psychological History: No Psychological Hx Reported Smoking Status: Never smoker Past Alcohol Use History: None Reported Past Drug Use History: None Reported - Past Family History Mother Family Medical History: Cancer Additional Family Medical History / Comment(s): . Medications and Allergies Home Medications Medication Instructions Recorded Confirmed Type Nitroglycerin Sl Tabs [Nitrostat] 0.4 mg SUBLINGUAL Q5M PRN 06/06/20 06/24/22 History amLODIPine BESYLATE/BENAZEPRIL 1 cap PO BID 06/06/20 06/24/22 History [amLODIPine BESYLATE/BENAZEPRIL 5-10 MG] Atorvastatin Calcium [Lipitor] 80 mg PO HS 03/07/21 06/24/22 History Isosorbide Mononitrate ER [Imdur] 30 mg PO DAILY 03/07/21 06/24/22 History Carbidopa-Levodopa ER 50-200Mg 1 tab PO TID 01/11/22 06/24/22 History [Sinemet CR 50-200 mg] Enzalutamide [Xtandi] 160 mg PO HS 01/11/22 06/24/22 History Gabapentin [Neurontin] 100 mg PO TID 01/11/22 06/24/22 History sitaGLIPtin PHOS/metFORMIN HCL 0.5 tab PO BID 05/25/22 06/24/22 History [Janumet Xr 50-1,000 mg Tablet] Aspirin 81 mg PO DAILY #30 tab 05/26/22 06/24/22 Rx hydrALAZINE HCL [Apresoline] 25 mg PO TID #90 tab 05/26/22 06/24/22 Rx Carboxymethylcellulos/Glycerin 1 drop BOTH EYES 5XD PRN 06/24/22 06/24/22 History [Refresh Relieva 0.5-0.9% Drop] DULoxetine HCL [Cymbalta] 20 mg PO DIRECTED 06/24/22 06/24/22 History Metoprolol Tartrate [Lopressor] 25 mg PO BID 06/24/22 06/24/22 History Allergies Allergy/AdvReac Type Severity Reaction Status Date / Time No Known Allergies Allergy Verified 06/24/22 18:51 Surgical - Exam Vital Signs Temp Pulse Resp BP Pulse Ox 98.0 F 72 20 131/75 95 06/24/22 15:43 06/24/22 15:43 06/24/22 15:43 06/24/22 15:43 06/24/22 15:43 Results - Labs 06/28/22 08:09 06/29/22 07:42 Abnormal Lab Results - Last 24 Hours (Table) 06/28/22 06/28/22 06/29/22 Range/Units 12:07 20:17 06:06 Chloride (98-107) mmol/L BUN (9-20) mg/dL Glucose (74-99) mg/dL POC Glucose (mg/dL) 173 H 160 H 191 H (70-110) mg/dL Calcium (8.4-10.2) mg/dL Magnesium (1.6-2.3) mg/dL 06/29/22 Range/Units 07:42 Chloride 108 H (98-107) mmol/L BUN 51 H (9-20) mg/dL Glucose 154 H (74-99) mg/dL POC Glucose (mg/dL) (70-110) mg/dL Calcium 6.6 L (8.4-10.2) mg/dL Magnesium 2.4 H (1.6-2.3) mg/dL Diabetes panel 06/29/22 Range/Units 07:42 Sodium 139 (137-145) mmol/L Potassium 3.9 (3.5-5.1) mmol/L Chloride 108 H (98-107) mmol/L Carbon Dioxide 22 (22-30) mmol/L BUN 51 H (9-20) mg/dL Creatinine 0.97 (0.66-1.25) mg/dL Glucose 154 H (74-99) mg/dL Calcium 6.6 L (8.4-10.2) mg/dL Calcium panel 06/29/22 Range/Units 07:42 Calcium 6.6 L (8.4-10.2) mg/dL Pituitary panel 06/29/22 Range/Units 07:42 Sodium 139 (137-145) mmol/L Potassium 3.9 (3.5-5.1) mmol/L Chloride 108 H (98-107) mmol/L Carbon Dioxide 22 (22-30) mmol/L BUN 51 H (9-20) mg/dL Creatinine 0.97 (0.66-1.25) mg/dL Glucose 154 H (74-99) mg/dL Calcium 6.6 L (8.4-10.2) mg/dL Adrenal panel 06/29/22 Range/Units 07:42 Sodium 139 (137-145) mmol/L Potassium 3.9 (3.5-5.1) mmol/L Chloride 108 H (98-107) mmol/L Carbon Dioxide 22 (22-30) mmol/L BUN 51 H (9-20) mg/dL Creatinine 0.97 (0.66-1.25) mg/dL Glucose 154 H (74-99) mg/dL Calcium 6.6 L (8.4-10.2) mg/dL
[2022-06-29] MEDS ORDERED: LACTATED RINGERS 1,000 ML IV SCH (14:43)
--- NOTE | 2022-06-29 14:51 | P.CONS ---
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 He was brought into the emergency room on 06/24/22 by his son for altered mental status and failure to thrive. Per the son, the patient who has been on Sinemet for several years recently had it discontinued by Dr. Luz and started on amantadine. The son reports that ever since the medication change, his father has not been quite himself. He reports that the patient has now developed worsening tremors and has been increasingly confused and refusing to eat or drink much. At baseline, he reports that his father is oriented 3 and was able to use his walker to a mbulate throughout the house and get himself out of bed and seat himself on the toilet. He reports that since the medication change, the patient is also suffered several falls leading to the bruising over his arms. The patient was not answering any questions appropriately. Head/cervical spine CT in the emergency room was consistent with metastatic osteoblastic disease. Pelvis x- ray also unremarkable aside from stable metastatic disease. Chest x-ray revealed pulmonary edema and pleural fluid, possible CHF. Right forearm x-ray was unremarkable. EKG reveals sinus rhythm with left axis deviation a 69 bpm with a left bundle branch block. Initially found to have severe hypervolemic hyponatremia likely in setting of CHF exacerbation. Patient was evaluated by cardiology and nephrology. Sodium improved with diuretics. Altered mental status likely secondary to severe hyponatremia versus worsening Parkinson's. Neurology is allyson following.. Amantadine was discontinued as it can potentially cause urinary retention and behavioral changes/confusion. Sinemet was continued. Patient had swallow evaluation, failed. Modified barium swallow also failed. Patient's son would prefer to eventually take him home with a feeding tube, the patient's daughter does not believe that is the right course. Patient has not signed anyone has his primary decision maker. Review of Systems ROS unobtainable: due to mental status Past Medical History Past Medical History: Coronary Artery Disease (CAD), Cancer, Chest Pain / Angina, Diabetes Mellitus, Hyperlipidemia, Hypertension, Neurologic Disorder Additional Past Medical History / Comment(s): Hx skin Cancer., parkinson's., hx nose bleed with packing, anemia, prostate cancer with bone metastasis and mets to sternum., back pain, hx falls-has elbow and hand wounds from falling and scratches on his face., constipation., cataracts, poor vision, [place]. History of Any Multi-Drug Resistant Organisms: None Reported Past Surgical History: Back Surgery, Heart Catheterization With Stent Additional Past Surgical History / Comment(s): Skin CA removed from L arm; Colonoscopies. Past Anesthesia/Blood Transfusion Reactions: No Reported Reaction, Family History of Problems w/ Anesthesia Additional Past Anesthesia/Blood Transfusion Reaction / Comm: son states his bloodpressure dropped during surgery and he is concerned about his Dad, would like his BP monitored closely- pt may not tell you is he is not feeling well. Date of Last Stent Placement:: 04/12/18 Past Psychological History: No Psychological Hx Reported Smoking Status: Never smoker Past Alcohol Use History: None Reported Past Drug Use History: None Reported - Past Family History Mother Family Medical History: Cancer Additional Family Medical History / Comment(s): . Medications and Allergies Home Medications Medication Instructions Recorded Confirmed Type Nitroglycerin Sl Tabs [Nitrostat] 0.4 mg SUBLINGUAL Q5M PRN 06/06/20 06/24/22 History amLODIPine BESYLATE/BENAZEPRIL 1 cap PO BID 06/06/20 06/24/22 History [amLODIPine BESYLATE/BENAZEPRIL 5-10 MG] Atorvastatin Calcium [Lipitor] 80 mg PO HS 03/07/21 06/24/22 History Isosorbide Mononitrate ER [Imdur] 30 mg PO DAILY 03/07/21 06/24/22 History Carbidopa-Levodopa ER 50-200Mg 1 tab PO TID 01/11/22 06/24/22 History [Sinemet CR 50-200 mg] Enzalutamide [Xtandi] 160 mg PO HS 01/11/22 06/24/22 History Gabapentin [Neurontin] 100 mg PO TID 01/11/22 06/24/22 History sitaGLIPtin PHOS/metFORMIN HCL 0.5 tab PO BID 05/25/22 06/24/22 History [Janumet Xr 50-1,000 mg Tablet] Aspirin 81 mg PO DAILY #30 tab 05/26/22 06/24/22 Rx hydrALAZINE HCL [Apresoline] 25 mg PO TID #90 tab 05/26/22 06/24/22 Rx Carboxymethylcellulos/Glycerin 1 drop BOTH EYES 5XD PRN 06/24/22 06/24/22 History [Refresh Relieva 0.5-0.9% Drop] DULoxetine HCL [Cymbalta] 20 mg PO DIRECTED 06/24/22 06/24/22 History Metoprolol Tartrate [Lopressor] 25 mg PO BID 06/24/22 06/24/22 History Allergies Allergy/AdvReac Type Severity Reaction Status Date / Time No Known Allergies Allergy Verified 06/24/22 18:51 Physical Exam Vitals: Vital Signs Temp Pulse Resp BP Pulse Ox 06/29/22 12:00 98.5 F 80 17 142/67 94 L 06/29/22 08:00 97.9 F 83 18 139/66 100 06/29/22 04:00 98.3 F 74 17 140/65 99 06/29/22 00:00 98.3 F 77 18 145/60 99 06/28/22 20:00 98.0 F 79 16 144/66 100 06/28/22 16:25 98.8 F 80 18 140/67 98 Intake and Output 06/28/22 06/29/22 06/29/22 22:59 06:59 14:59 Intake Total 101.167 125 Output Total 225 300 Balance -123.833 -175 Intake: Intake, IV Titration 101.167 125 Amount Diltiazem 125 mg In 101.167 125 Sodium Chloride 0.9% 100 ml @ 10 MG/HR 10 mls/hr IV .[id number] [facility] Rx#: [id number] Oral 0 Output: Urine 225 300 Uretheral (Edward) 225 Other: Voiding Method Indwelling Catheter Indwelling Catheter Indwelling Catheter # Voids 0 # Bowel Movements 0 Weight 61 kg 61 kg General: Well developed, well nourished. No acute distress. Cachectic, Chronically ill appearing HEENT: Head is atraumatic, normocephalic. Mucus membranes dry. +[place] CV: Heart regular in rate and rhythm positive S1 and S2. Lungs: Clear to auscultation bilaterally. No wheezes rales or rhonchi. Respirations even and nonlabored. Abdomen/GI: Soft. Bowel sounds present in all 4 quadrants.No guarding, rigidity, or abdominal tenderness. Musculoskeletal/ Extremities: No contractues, + muscle atrophy,. + generalized weakness Vascular: Radial pulses equal. 2/4. no peripheral edema Skin: Warm and dry, No rash or lesions. Neurologic: Confused Results CBC & Chem 7: 06/28/22 08:09 06/29/22 07:42 Labs: Abnormal Lab Results - Last 24 Hours (Table) 06/28/22 06/29/22 06/29/22 Range/Units 20:17 06:06 07:42 Chloride 108 H (98-107) mmol/L BUN 51 H (9-20) mg/dL Glucose 154 H (74-99) mg/dL POC Glucose (mg/dL) 160 H 191 H (70-110) mg/dL Calcium 6.6 L (8.4-10.2) mg/dL Magnesium 2.4 H (1.6-2.3) mg/dL 06/29/22 Range/Units 12:04 Chloride (98-107) mmol/L BUN (9-20) mg/dL Glucose (74-99) mg/dL POC Glucose (mg/dL) 170 H (70-110) mg/dL Calcium (8.4-10.2) mg/dL Magnesium (1.6-2.3) mg/dL Chest x-ray: report reviewed Abdominal x-ray: report reviewed CT Scan - head: report reviewed Assessment and Plan Assessment: Social * Occupation - Retired * Marital status - * Children/grandchildren - 2 adult children, 1 son and 1 daughter * Residence - House * Who do you reside with - son * ETOH - No * Tobacco - Never smoked * Illicit drugs - No Functional Assessment Son states patient was able to walk with walker until about 1 weeks ago. Now he tried to get out of bed on his own and has had multiple falls. He is now bed bound. He has had poor oral intake recently. PPS score - 20% Psychological/Emotional * Dementia present - Yes * Insight and judgment - Not intact * Depression - Unable to assess * Suicidal thoughts - Unable to assess * Patients goals - prolonged survival - per his son * Frequent hospitalizations - No Symptoms * Pain - 0/10, continue Neurotin and Morphine prn * Fatigue - + generalized weakness and fatigue * SOB - Yes, on 3L NC * Insomnia - No * N/V - No * Anxiety - No * Depression - No * Confusion - Yes * Agitation - No * Hallucinations - No * Appetite/weight loss - NPO, failed swallow eval and MBS * Dysphagia - Yes * Constipation - No BM recorded * Incontinence - Edward catheter * Itch - No Plan: Summary/Goals - The patient is resting in bed and appears comfortable. His speech is slurred and very hard to understand. Had a phone conversation with the patient's daughter in attempt to set up a family meeting. Palliative care philosophies and services explained. Unfortunately, she lives in [place]. She voiced many concerns regarding her father. She is concerned that her brother may need help caring for her father. Her brother has to work and the patient is then left alone for periods of time and has fallen on multiple occasions. She stated that she has had conversations with her father in the past regarding end of life. Back in 2018 he did agree to be fully resuscitated, placed on a ventilator if it were short term, and for placement of a feeding tube. She is worried that her brother is unrealistic and not able to face that their dad is near the end of his life. She values quality of life over quantity of life. The patient's son is at the bedside, and his sister is on speakerphone for family meeting. After I introduced myself, the son was defensive and stated he did not want me there or to talk about his father's medical issues with him. e discussion regarding PEG tube placement was non-productive. Attempted to talk about why PEG tube is not recommended for patient's with dementia. There is still risks of bleeding, infection, and aspiration involved with the peg tube. There is also a concern that he may pull it out. The patient's son stated that his father was getting the PEG tube tomorrow no matter what I say. It was difficult to talk and make a point during without being interrupted. the son was not interested in listening. It was explained multiple times that palliative care is a support service to help guide them in determining which treatments are beneficial and which may cause undue burden. he repeated that he did not want me there. The patient's daughter was trying to gather information and understand her father's condition to make good decisions. The son was angry telling her to shut up and to stop getting in the way of their dad's treatment. He stated she had no right to put conditions on his care. She would like someone to be there 24 hours a day to care for her father and to keep him safe. The son insists that his father is telling him that he doesn't want to give up and wants to continue treatment. I only observed the patient repeating what he was told to say. He is confused and not capable of making his own decisions at this time. Voiced concern about the patient's recent decline in functional status. Neha Galicia, oncology KENNEL OPERATOR, was called to clarify if they would continue the patient's Xt triny if the patient got a peg tube placed. She stated that he has done well with the treatment in the past. She will check into if the medication can be crushed and administered through a peg tube. If it is able to, they could resume his Xtandi immediately after peg placement. The patient's son stated if they are unable to continue his father's treatment here, then he will take him to [facility] for a second opinion. Ultimately, after much arguing, the patient's son and daughter agreed to proceed with a peg tube placement tomorrow. Code Status - Full code Thank you for this consult Malu Spencer [facility] Palliative [facility] [place]ink [id number] Email: [email or web address] Time with Patient: Greater than 30
[2022-06-29 16:42] LABS: Glucose,Whole Blood 164 mg/dL (70-110)
--- NOTE | 2022-06-29 17:44 | P.CONS ---
History of Present Illness - Reason for Consult Consult date: 06/29/22 prostate carcinoma Requesting physician: Emanuel Espinosa - Chief Complaint encephalopathy - History of Present Illness Mr. Lai is a pleasant male pt of Dr. Lee, with a PMH of prostate cancer, Parkinson's disease, DMII, HTN, CAD who was brought to the ER by his son 5 days ago for AMS and failure to thrive. Pt recently had Parkinsonian medication changes, this preceded the change in the pt. Pt has fallen, not been able to get around the house like he had been previously. Son reports that pt is not eating well, last Fri he was still taking his pills with some applesauce but, condition cont to decline so he brought him in. CXR showed pulm edema, poss CHF, no fractures seen on xrays, Na+ was 118, BNP 22,300, WBC 12.6, Hgb 9.2 on admit. He has received hydration, electrolyte replacement. WBC now normal, Hgb stable. Pt failed swallow evaluation. On exam, Pt voice is very weak and it hard to discern what he is saying. He did shake his head no when asked about pain or trouble breathing. Malignancy Hx: Seen initial consult [facility] 03/08/21, c/o substernal chest pain, x 2 weeks, assoc with decreased endurance, increased sleeping time. CT angio 03/07/21 that was negative, incidental finding of sclerotic lesions in the sternum and multiple osteoblastic foci in the thoracic spine. CT AP showed a large prostate gland at 6.1 cm with some heterogenous enhancement, no visceral lesions or adenopathy. Incidentally there was some soft tissue thickening noted at the ileocecal region. Labs showed Hgb 8-9 range. PSA was >150, bone scan showing multiple lesions involving essentially, the entire skeleton. 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 Urology started pt on GnRH agonist therapy on 04/07/21 with Firmagon. Work up of anemia most consistent with inflammation, likely related to his malignancy. Pt referred back to us by Urology and seen for his first office visit on 05/04/21. Recommendations sent to Urology for xgeva, ARB, who cont to treat and follow pt until 12/08/21, referred back due to concerns of progression. Labs in 11/23 showed progression of PSA. Xtandi was initiated in late 11/23. Pt was started on Megace to improve his appetite in early 05/26. His PSA in late 05/26 had increased to 55, versus 22. As Megace can cause PSA increase, it was discontinued. The patient had marked increase in generalized weakness, decreased responsiveness and comprehension as well as stiffness and tremors. The patient's son reported this at his visit just over a week ago. MRI brain was negative for metastases. Medications have been adjusted back by Neurologist see how he responds, follow up was planned for 1 mo. Review of Systems focused ROS is neg, pt very difficult to understand Past Medical History Past Medical History: Coronary Artery Disease (CAD), Cancer, Chest Pain / Angina, Diabetes Mellitus, Hyperlipidemia, Hypertension, Neurologic Disorder Additional Past Medical History / Comment(s): Hx skin Cancer., parkinson's., hx nose bleed with packing, anemia, prostate cancer with bone metastasis and mets to sternum., back pain, hx falls-has elbow and hand wounds from falling and scratches on his face., constipation., cataracts, poor vision, [place]. History of Any Multi-Drug Resistant Organisms: None Reported Past Surgical History: Back Surgery, Heart Catheterization With Stent Additional Past Surgical History / Comment(s): Skin CA removed from L arm; Colonoscopies. Past Anesthesia/Blood Transfusion Reactions: No Reported Reaction, Family History of Problems w/ Anesthesia Additional Past Anesthesia/Blood Transfusion Reaction / Comm: son states his bloodpressure dropped during surgery and he is concerned about his Dad, would like his BP monitored closely- pt may not tell you is he is not feeling well. Date of Last Stent Placement:: 04/12/18 Past Psychological History: No Psychological Hx Reported Smoking Status: Never smoker Past Alcohol Use History: None Reported Past Drug Use History: None Reported - Past Family History Mother Family Medical History: Cancer Additional Family Medical History / Comment(s): . Medications and Allergies Home Medications Medication Instructions Recorded Confirmed Type Nitroglycerin Sl Tabs [Nitrostat] 0.4 mg SUBLINGUAL Q5M PRN 06/06/20 06/24/22 History amLODIPine BESYLATE/BENAZEPRIL 1 cap PO BID 06/06/20 06/24/22 History [amLODIPine BESYLATE/BENAZEPRIL 5-10 MG] Atorvastatin Calcium [Lipitor] 80 mg PO HS 03/07/21 06/24/22 History Isosorbide Mononitrate ER [Imdur] 30 mg PO DAILY 03/07/21 06/24/22 History Carbidopa-Levodopa ER 50-200Mg 1 tab PO TID 01/11/22 06/24/22 History [Sinemet CR 50-200 mg] Enzalutamide [Xtandi] 160 mg PO HS 01/11/22 06/24/22 History Gabapentin [Neurontin] 100 mg PO TID 01/11/22 06/24/22 History sitaGLIPtin PHOS/metFORMIN HCL 0.5 tab PO BID 05/25/22 06/24/22 History [Janumet Xr 50-1,000 mg Tablet] Aspirin 81 mg PO DAILY #30 tab 05/26/22 06/24/22 Rx hydrALAZINE HCL [Apresoline] 25 mg PO TID #90 tab 05/26/22 06/24/22 Rx Carboxymethylcellulos/Glycerin 1 drop BOTH EYES 5XD PRN 06/24/22 06/24/22 H istory [Refresh Relieva 0.5-0.9% Drop] DULoxetine HCL [Cymbalta] 20 mg PO DIRECTED 06/24/22 06/24/22 History Metoprolol Tartrate [Lopressor] 25 mg PO BID 06/24/22 06/24/22 History Allergies Allergy/AdvReac Type Severity Reaction Status Date / Time No Known Allergies Allergy Verified 06/24/22 18:51 Physical Exam Vitals: Vital Signs Temp Pulse Resp BP Pulse Ox 06/29/22 08:00 97.9 F 83 18 139/66 100 06/29/22 04:00 98.3 F 74 17 140/65 99 06/29/22 00:00 98.3 F 77 18 145/60 99 06/28/22 20:00 98.0 F 79 16 144/66 100 06/28/22 16:25 98.8 F 80 18 140/67 98 Intake and Output 06/28/22 06/29/22 06/29/22 22:59 06:59 14:59 Intake Total 101.167 125 Output Total 225 300 Balance -123.833 -175 Intake: Intake, IV Titration 101.167 125 Amount Diltiazem 125 mg In 101.167 125 Sodium Chloride 0.9% 100 ml @ 10 MG/HR 10 mls/hr IV .[id number] [facility] Rx#: [id number] Oral 0 Output: Urine 225 300 Uretheral (Edward) 225 Other: Voiding Method Indwelling Catheter Indwelling Catheter Indwelling Catheter # Voids 0 # Bowel Movements 0 Weight 61 kg 61 kg - Constitutional General appearance: cooperative, no acute distress, thin - EENT very dry mouth, voice is hoarse Eyes: anicteric sclerae, EOMI ENT: hearing grossly normal - Respiratory Respiratory: bilateral: CTA (weak inspiratory effort) - Cardiovascular Rhythm: regular Heart sounds: normal: S1, S2 Abnormal Heart Sounds: no systolic murmur, no diastolic murmur, no rub, no S3 Gallop, no S4 Gallop, no click, no other leg Peripheral Edema: bilateral: None - Gastrointestinal General gastrointestinal: no absent bowel sounds, no decreased bowel sounds, no distended, no hepatomegaly, no hyperactive bowel sounds, normal bowel sounds, no organomegaly, no rigid, scaphoid, soft, no splenomegaly, no tenderness, no umbilical hernia, no ventral hernia - Integumentary Integumentary: pale - Neurologic Parkinsonian masked facies - Musculoskeletal Musculoskeletal: generalized weakness - Psychiatric Psychiatric: A&O x's 3, appropriate affect, intact judgment & insight Results CBC & Chem 7: 06/28/22 08:09 06/29/22 07:42 Labs: Abnormal Lab Results - Last 24 Hours (Table) 06/28/22 06/28/22 06/29/22 Range/Units 12:07 20:17 06:06 Chloride (98-107) mmol/L BUN (9-20) mg/dL Glucose (74-99) mg/dL POC Glucose (mg/dL) 173 H 160 H 191 H (70-110) mg/dL Calcium (8.4-10.2) mg/dL Magnesium (1.6-2.3) mg/dL 06/29/22 06/29/22 Range/Units 07:42 12:04 Chloride 108 H (98-107) mmol/L BUN 51 H (9-20) mg/dL Glucose 154 H (74-99) mg/dL POC Glucose (mg/dL) 170 H (70-110) mg/dL Calcium 6.6 L (8.4-10.2) mg/dL Magnesium 2.4 H (1.6-2.3) mg/dL Comments: Xray reports reviewed Swallow study reports reviewed CT Scan - head: report reviewed Assessment and Plan (1) Prostate cancer metastatic to bone Current Visit: No Status: Chronic Priority: Medium Code(s): C61 - MALIGNANT NEOPLASM OF PROSTATE; C79.51 - SECONDARY MALIGNANT NEOPLASM OF BONE SNOMED Code(s): 701004991 Plan: Last PSA in ofc was 06/22, 63.9. Though increase may be due to megace appetite stimulant so, this has been stopped. Plan is for repeat PSA in 1 mo to see if elevation is true or r/t medication. Pt currently on oral xtandi for metastatic prostate cancer. Pt did have swallow evaluation and unfortunately did fail. Plans for PEG tube insertion tomorrow. I am inquiring with Lamination Inspector for Xtandi to see if it can be administered via PEG tube, will f/u. If on recheck of PSA in 3-4 weeks, it cont to rise then unfortunately, current treatment would no longer be considered effective and regimen would have to be changed. Pt PS is poor and he would not be a candidate for chemotherapy-this has been discussed with the son previously but, he is insistent that he would want his father to have to option to try. This conversation will be revisited when pt is seen outpt for f/u and PSA recheck in about 3-4 weeks. Son states his father has been clear that he wants everything done to prolong his life. Son asked his father "do you want to live?". I told the son that that is not the right question to be asking. The question needs to be what pro cedures/interventions (CPR, intubation) is the patient willing to subject himself to. Also, clarification of expectations of resuscitation-medically, what are the chances that the pt will physically withstand resuscitation efforts. I asked the son to consider this. We will re-address on follow up. It was also explained to the son that the pt is not just trying to survive prostate cancer, he has Parkinsons and this is also causing symptoms, possible even pt difficulty swallowing. Dr gomezests: I have seen and examined pt, performed H&P, developed impression and plan of care. Discussed with dictator. Agree with documentation, dictated as a scribe. Time with Patient: Greater than 30 (>45 min spent)
[2022-06-29 20:07] LABS: Glucose,Whole Blood 156 mg/dL (70-110)
[2022-06-29] MEDS: NON FORMULARY DRUG (Enzalutamide [Xtandi] 40 MG Capsule) PO SCH (20:44)
[2022-06-30] MEDS: HEPARIN SODIUM,PORCINE/PF 5,000 UNIT/0.5 ML SYRINGE SQ SCH ×4 (00:02→23:32)
[2022-06-30 06:04] LABS: Glucose,Whole Blood 167 mg/dL (70-110)
[2022-06-30] MEDS: INSULIN ASPART (NovoLOG) 100 UNIT/ML VIAL SQ SCH ×4 (06:25→21:31)
[2022-06-30] MEDS: DILTIAZEM 125 MG in SODIUM CHLORIDE 0.9% 100 ML IV SCH ×2 (06:31→19:27)
[2022-06-30] MEDS: GABAPENTIN 100 MG CAP PO SCH ×3 (07:39→18:24)
[2022-06-30] MEDS: TAMSULOSIN 0.4 MG CAP.ER.24H PO SCH (07:39)
[2022-06-30] MEDS: CARBIDOPA-LEVODOPA ER 50-200MG 1 EACH TABLET.ER PO SCH (07:39)
[2022-06-30] MEDS: ASPIRIN 81 MG PO SCH (07:39)
[2022-06-30] MEDS: FUROSEMIDE 10 MG/ML 2 ML VIAL IV SCH ×2 (08:09→20:40)
[2022-06-30 08:27] LABS: HCT 26.3 % (39.0-53.0); HGB 8.7 gm/dL (13.0-17.5); Hypochromasia Slight; MCH 31.8 pg (25.0-35.0); MCV 96.5 fL (80.0-100.0); Mean Platelet Volume 8.2; Platelet Count 206 k/uL (150-450); RBC 2.73 m/uL (4.30-5.90); RDW 14.5 % (11.5-15.5); WBC 6.6 k/uL (3.8-10.6)
[2022-06-30 08:44] LABS: Potassium 3.7 mmol/L (3.5-5.1)
[2022-06-30 08:53] LABS: Calcium 6.4 mg/dL (8.4-10.2)
[2022-06-30] MEDS ORDERED: CALCIUM GLUCONATE IN NACL 2 GM in SALINE 1 100ML.BAG IVPB ONE (10:00)
--- NOTE | 2022-06-30 10:49 | P.PN ---
Subjective This is a pleasant 87-year-old male past medical history significant for stage IV prostate cancer with metastatis to bone, Parkinson's disease, type 2 diabetes, hypertension, Parkinson's disease, coronary artery disease with PCI to mid left circumflex and distal RCA in 2018, PCI PLV branch of RCA in 02/2021, ischemic cardiomyopathy with an EF of 40-45%. He did follow in the office with Dr. Barros. We have been asked to see in consultation for congestive heart failure. Patient presented to the ER by his son for increased altered mental sta tus and failure to thrive. Patient was started on IV Lasix yesterday. Patient seen and examined at bedside. No significant changes over the past 24 hours. Family discussing goals of care. Plan for PEG tube today. Currently still a full code. Patient is lethargic, appears malnutrition and dehydrated. No complaints of chest pain or shortness of breath. BP are stable. Heart rates have improved and is still on IV Cardizem, is unable to take PO medications. He has not passed a swallow evaluation. Telemetry reviewed, appears in sinus rhythm. Labs, sodium 143, potassium 3.7, BUN 33, serum creatinine 0.9, calcium 6.4, hemoglobin 8.7 GENERAL: Lethargic, frail, In no acute distress. NECK: Supple without JVD LUNGS: Breath sounds diminished in the bases to auscultation bilaterally. Respiration equal and unlabored. No wheezes, rales or rhonchi. HEART: Regular rate and rhythm without murmurs, rubs or gallops. S1 and S2 heard. EXTREMITIES: No edema. No clubbing or cyanosis. Peripheral pulses intact. ASSESSMENT Acute on chronic heart failure with mildly reduced ejection fraction Accelerated junctional rhythm Episodes of SVT Altered mental status Failure to thrive Stage IV prostate cancer with metastatis to bone Parkinson's disease Type 2 diabetes Hypertension Coronary artery disease with PCI to mid left circumflex and distal RCA in 2018, PCI PLV branch of RCA in 02/2021 Ischemic cardiomyopathy with an EF of 40-45% PLAN Patient currently unable to take PO medications, Continue IV Cardizem, transition to PO medication when able to use PEG tube Prognosis is guarded Rest of management per primary Goals of care Prognosis is poor No further changes from a cardiology perspective. We'll follow the patient as needed. Please reconsult if needed. Nurse Practitioner note has been reviewed, I agree with a documented findings and plan of care. Patient was seen and examined. Objective - Vital Signs Vital signs: Vital Signs Temp 98.9 F 06/30/22 08:00 Pulse 94 06/30/22 08:00 Resp 18 06/30/22 08:00 BP 143/70 06/30/22 08:00 Pulse Ox 99 06/30/22 08:00 FiO2 30 06/26/22 16:28 Intake & Output 06/29/22 06/30/22 06/30/22 18:59 06:59 18:59 Intake Total 125 Output Total 550 600 Balance -550 -475 Weight 61 kg 55.5 kg Intake: Intake, IV Titration 125 Amount Diltiazem 125 mg In 125 Sodium Chloride 0.9% 100 ml @ 10 MG/HR 10 mls/hr IV .[id number] [facility], [facility] Rx#: [id number] Output: Urine 550 600 Other: Voiding Method Indwelling Catheter Indwelling Catheter Indwelling Catheter - Labs CBC & Chem 7: 06/30/22 07:28 06/30/22 07:28 Labs: Abnormal Lab Results - Last 24 Hours (Table) 06/29/22 06/29/22 06/29/22 Range/Units 12:04 16:40 20:05 RBC (4.30-5.90) m/uL Hgb (13.0-17.5) gm/dL Hct (39.0-53.0) % Chloride (98-107) mmol/L BUN (9-20) mg/dL Glucose (74-99) mg/dL POC Glucose (mg/dL) 170 H 164 H 156 H (70-110) mg/dL Calcium (8.4-10.2) mg/dL 06/30/22 06/30/22 06/30/22 Range/Units 06:02 07:28 07:28 RBC 2.73 L (4.30-5.90) m/uL Hgb 8.7 L (13.0-17.5) gm/dL Hct 26.3 L (39.0-53.0) % Chloride 111 H (98-107) mmol/L BUN 53 H (9-20) mg/dL Glucose 154 H (74-99) mg/dL POC Glucose (mg/dL) 167 H (70-110) mg/dL Calcium 6.4 L* (8.4-10.2) mg/dL
[2022-06-30 10:56] LABS: Ionized Calcium 4.1 mg/dL (4.5-5.3)
[2022-06-30 11:01] LABS: Albumin 2.9 g/dL (3.5-5.0)
[2022-06-30 11:33] LABS: Glucose,Whole Blood 176 mg/dL (70-110)
--- NOTE | 2022-06-30 11:36 | P.PN ---
Subjective Patient is seen in follow-up for hyponatremia. Sodium level normal. Resting in bed. On nasal cannula. NPO as failed swallow eval. Quite lethargic. Nonoliguric. On IV Lasix. Son present at bedside. Scheduled for PEG tube placement today. Vital signs are stable. General: Resting in bed. HEENT: Head exam is unremarkable. On nasal cannula. LUNGS: Breath sounds decreased. HEART: Rate and Rhythm are regular. ABDOMEN: Soft, no distention. EXTREMITITES: No edema. Objective - Vital Signs Vital signs: Vital Signs Temp 98.9 F 06/30/22 08:00 Pulse 94 06/30/22 08:00 Resp 18 06/30/22 08:00 BP 143/70 06/30/22 08:00 Pulse Ox 99 06/30/22 08:00 FiO2 30 06/26/22 16:28 Intake & Output 06/29/22 06/30/22 06/30/22 18:59 06:59 18:59 Intake Total 125 Output Total 550 600 Balance -550 -475 Weight 61 kg 55.5 kg Intake: Intake, IV Titration 125 Amount Diltiazem 125 mg In 125 Sodium Chloride 0.9% 100 ml @ 10 MG/HR 10 mls/hr IV .[id number] [facility] Rx#: [id number] Output: Urine 550 600 Other: Voiding Method Indwelling Catheter Indwelling Catheter Indwelling Catheter - Labs CBC & Chem 7: 06/30/22 07:28 06/30/22 07:28 Labs: Abnormal Lab Results - Last 24 Hours (Table) 06/29/22 06/29/22 06/29/22 Range/Units 12:04 16:40 20:05 RBC (4.30-5.90) m/uL Hgb (13.0-17.5) gm/dL Hct (39.0-53.0) % Chloride (98-107) mmol/L BUN (9-20) mg/dL Glucose (74-99) mg/dL POC Glucose (mg/dL) 170 H 164 H 156 H (70-110) mg/dL Calcium (8.4-10.2) mg/dL Ionized Calcium Li (4.5-5.3) mg/dL Albumin (3.5-5.0) g/dL 06/30/22 06/30/22 06/30/22 Range/Units 06:02 07:28 07:28 RBC 2.73 L (4.30-5.90) m/uL Hgb 8.7 L (13.0-17.5) gm/dL Hct 26.3 L (39.0-53.0) % Chloride 111 H (98-107) mmol/L BUN 53 H (9-20) mg/dL Glucose 154 H (74-99) mg/dL POC Glucose (mg/dL) 167 H (70-110) mg/dL Calcium 6.4 L* (8.4-10.2) mg/dL Ionized Calcium Li (4.5-5.3) mg/dL Albumin (3.5-5.0) g/dL 06/30/22 Range/Units 10:11 RBC (4.30-5.90) m/uL Hgb (13.0-17.5) gm/dL Hct (39.0-53.0) % Chloride (98-107) mmol/L BUN (9-20) mg/dL Glucose (74-99) mg/dL POC Glucose (mg/dL) (70-110) mg/dL Calcium (8.4-10.2) mg/dL Ionized Calcium Li 4.1 L (4.5-5.3) mg/dL Albumin 2.9 L (3.5-5.0) g/dL Assessment and Plan Plan: assessment: 1. Hyponatremia from poor solute intake. Hypervolemic. Resolved. On IV Lasix. Also received Samsca this admission. Sodium level 139 this morning. Urine sodium less than 20. Urine osmolality 554. TSH normal. 2. Acute hypoxic respiratory failure secondary to volume overload. Improved. 3. Prostate cancer with metastatic disease. 4. Benign hypertension. Stable. 5. Diabetes mellitus. 6. Parkinson's disease. Neurology following. 7. Urinary retention. Edward catheter placed. On Flomax. No hydronephrosis noted on kidney ultrasound. Left kidney not visualized. 8. Hypokalemia from poor intake and diuresis. 10. A. fib with RVR maintained on Cardizem drip. 11. Hypocalcemia. Ionized calcium low. Due to diuresis. Also suspect vitamin D efficiency. Plan: Transition to oral Lasix 20 mg twice a day once able to tolerate oral intake. PEG tube placement today. Replace potassium. Calcium being replaced. Check vitamin D level. Prognosis guarded.
[2022-06-30] MEDS ORDERED: ETOMIDATE 2 MG/ML 10 ML VIAL ONE (11:51)
[2022-06-30] MEDS ORDERED: KETAMINE 10 MG/ML 20 ML VIAL ONE (11:51)
[2022-06-30] MEDS ORDERED: IV FLUID CONTINUATION 1,000 ML IV ONE ×2 (11:53)
--- NOTE | 2022-06-30 11:53 | P.PN ---
Subjective Progress Note Date: 06/30/22 The patient is seen at bedside and it seems palliative team was consulted and patient's son and his sister had disagreement with patient's care but at the end it seems they agree to go ahead with PEG tube placement. PEG tube is scheduled for today. The patient has been more confused and no as responsive. Objective - Vital Signs Vital signs: Vital Signs Temp 98.9 F 06/30/22 08:00 Pulse 94 06/30/22 08:00 Resp 18 06/30/22 08:00 BP 143/70 06/30/22 08:00 Pulse Ox 99 06/30/22 08:00 FiO2 30 06/26/22 16:28 Intake & Output 06/29/22 06/30/22 06/30/22 18:59 06:59 18:59 Intake Total 125 Output Total 550 600 Balance -550 -475 Weight 61 kg 55.5 kg Intake: Intake, IV Titration 125 Amount Diltiazem 125 mg In 125 Sodium Chloride 0.9% 100 ml @ 10 MG/HR 10 mls/hr IV .[id number] ON LICENSE OF [facility] Rx#: [id number] Output: Urine 550 600 Other: Voiding Method Indwelling Catheter Indwelling Catheter Indwelling Catheter - Exam GENERAL: The patient is lying in bed and is not in acute distress. NEUROLOGICAL: Limited because of his condition. Higher mental function: The patient is severely drrowsy and seems lethargic. He is not verbalizing or following commands. Cranial nerves: NO facial weakness. Is mute. Motor: Could not assess because of his cooperation/condition. - Labs CBC & Chem 7: 06/30/22 07:28 06/30/22 07:28 Labs: Abnormal Lab Results - Last 24 Hours (Table) 06/29/22 06/29/22 06/29/22 Range/Units 12:04 16:40 20:05 RBC (4.30-5.90) m/uL Hgb (13.0-17.5) gm/dL Hct (39.0-53.0) % Chloride (98-107) mmol/L BUN (9-20) mg/dL Glucose (74-99) mg/dL POC Glucose (mg/dL) 170 H 164 H 156 H (70-110) mg/dL Calcium (8.4-10.2) mg/dL Ionized Calcium Li (4.5-5.3) mg/dL Albumin (3.5-5.0) g/dL 06/30/22 06/30/22 06/30/22 Range/Units 06:02 07:28 07:28 RBC 2.73 L (4.30-5.90) m/uL Hgb 8.7 L (13.0-17.5) gm/dL Hct 26.3 L (39.0-53.0) % Chloride 111 H (98-107) mmol/L BUN 53 H (9-20) mg/dL Glucose 154 H (74-99) mg/dL POC Glucose (mg/dL) 167 H (70-110) mg/dL Calcium 6.4 L* (8.4-10.2) mg/dL Ionized Calcium Li (4.5-5.3) mg/dL Albumin (3.5-5.0) g/dL 06/30/22 06/30/22 Range/Units 10:11 11:31 RBC (4.30-5.90) m/uL Hgb (13.0-17.5) gm/dL Hct (39.0-53.0) % Chloride (98-107) mmol/L BUN (9-20) mg/dL Glucose (74-99) mg/dL POC Glucose (mg/dL) 176 H (70-110) mg/dL Calcium (8.4-10.2) mg/dL Ionized Calcium Li 4.1 L (4.5-5.3) mg/dL Albumin 2.9 L (3.5-5.0) g/dL Assessment and Plan Assessment: * Altered mental status, likely due to toxic metabolic encephalopathy and not receiving his medications (Parkinson's). Reasons multifactorial as mentioned below---mentation worsening * Electrolye derangement (Hyponatremia, hypocalcemia) * Dysphagia * Acute pulmonary edema * Metastatic prostate cancer with bony metastasis * CAD * Diabetes * Hyperlipidemia * Hypertension * Parkinson's disease Plan: * Dr. Beckett discontinued amantadine during this hospital visit. It can cause urinary retention and behavioral changes/confusions. * Continue Sinemet at his home dose (50-200mg ER 1 tab tid) and is scheduled for PEG tube. We cannot crush Sinement ER and we do not have liquid formulary but we place him on immediate release according to the inpatient pharmacist. * Speech therapy evaluation. * Ordered routine EEG because of his confusion to rule out seizure (seems very unlikely). * Treatment of other medical conditions as per IM and other specialties. * Prognosis is poor based upon multiple comorbid conditions including terminal prostate cancer. The plan is discussed with the patient's so and his son (who is at bedside). Time with Patient: Less than 30
--- NOTE | 2022-06-30 12:10 | P.OP ---
Date of Procedure: 06/30/22 Preoperative Diagnosis: Malnutrition Postoperative Diagnosis: Malnutrition Procedure(s) Performed: PEG tube with EGD Anesthesia: MAC Surgeon: Brian Byrnes Pathology: none sent Condition: stable Disposition: PACU Description of Procedure: The patient received IV sedation. Next the gastroscope placed oropharynx passed in the esophagus and stomach. There is no evidence of any outlet obstruction. Stomach was insufflated with air. The light reflux seen the anterior abdominal wall. The abdomen was prepped and draped usual fashion. The skin was incised. And the needles placed and stomach under direct visualization. The needle was snared. And the wires placed through the needle and the wire was snared and brought the oropharynx. The PEG tube was placed over top the wire brought down to the stomach. The PEG tube was secured. At the 2cm katie. The one-piece bolster was used. Patient tolerated procedure well.
--- NOTE | 2022-06-30 12:14 | P.PN ---
Subjective Progress Note Date: 06/30/22 Principal diagnosis: altered mental status Hospital Course: 87-year-old male with history of stage IV prostate cancer with bone metastases, Parkinson's disease, type 2 diabetes, hypertension, CAD status post PCI, ischemic cardiomyopathy with an EF of 40-45% stented with altered mental status and failure to thrive. Initially found to have severe hypervolemic hyponatremia likely in setting of CHF exacerbation. Patient was evaluated by cardiology and nephrology. Sodium improved with diuretics. Altered mental status likely secondary to severe hyponatremia versus worsening Parkinson's. Neurology was consulted. Amantadine was discontinued as it can potentially cause urinary retention and behavioral changes/confusion. Sinemet was continued. Patient had swallow evaluation, failed. Modified barium swallow also failed. Pending PEG tube placement, Surgery consulted. Subjective: Patient seen and examined at bedside. No acute events overnight. He continues to have difficulty swallowing. He denies any chest pain, shortness of breath, abdominal pain. Her son, patient is more confused today. Pertinent positives and negatives as discussed above, a complete review of systems was performed and all other systems are negative. Vitals Signs Reviewed. General: nontoxic, no distress, appears at stated age, cachectic Derm: warm, dry Head: atraumatic, normocephalic, symmetric Eyes: EOMI, no lid lag, anicteric sclera Mouth: no lip lesion, mucus membranes moist Cardiovascular: S1S2 reg, no murmur Lungs: CTA bilateral, no rhonchi, no rales , no accessory muscle use Abdominal: soft, nontender to palpation, no guarding, no appreciable orga nomegaly Ext: no edema, no contractures Neuro: CN II-XI grossly intact, no focal neuro deficits Psych: Awake, not oriented Assessment and Plan: Severe hyponatremia, hypervolemic - improving Acute on chronic systolic Heart Failure Exacerbation, EF is mildly to moderately reduced per Echo on 05/26/22 -Fluid restriction, diuresis IV -Nephrology consult, received tolvaptan -Monitor BMP -Cardiology consult Wide complex tachycardia - prior EKG, possible AFib - started on cardizem gtt per cardiology Altered mental status, possibly secondary to severe hyponatremia versus worsening Parkinson's Severe protein calorie malnutrition -Neurology consulted -Resume patient's Sinemet, however patient not able to swallow pills -holding amantadine -Patient failed MBS -PEG tube, surgery consulted -Also pending an EEG stage IV prostate cancer -Oncology consult -Also seen by palliative Chronic conditions: Type II DM, coronary artery disease -Continue with home meds -Insulin sliding scale with blood glucose monitoring DVT prophylaxis -Heparin subq CODE STATUS: Full Code Anticipated discharge date: 3-4 days, depending on if able to get to goal feeds Anticipated discharge place: Home with home care, patient's family is declining rehab Objective - Vital Signs Vital signs: Vital Signs Temp 98.9 F 06/30/22 08:00 Pulse 94 06/30/22 08:00 Resp 18 06/30/22 08:00 BP 143/70 06/30/22 08:00 Pulse Ox 99 06/30/22 08:00 FiO2 30 06/26/22 16:28 Intake & Output 06/29/22 06/30/22 06/30/22 18:59 06:59 18:59 Intake Total 125 Output Total 550 600 Balance -550 -475 Weight 61 kg 55.5 kg Intake: Intake, IV Titration 125 Amount Diltiazem 125 mg In 125 Sodium Chloride 0.9% 100 ml @ 10 MG/HR 10 mls/hr IV .[id number] [facility] Rx#: [id number] Output: Urine 550 600 Other: Voiding Method Indwelling Catheter Indwelling Catheter Indwelling Catheter - Labs CBC & Chem 7: 06/30/22 07:28 06/30/22 07:28 Labs: Abnormal Lab Results - Last 24 Hours (Table) 06/29/22 06/29/22 06/30/22 Range/Units 16:40 20:05 06:02 RBC (4.30-5.90) m/uL Hgb (13.0-17.5) gm/dL Hct (39.0-53.0) % Chloride (98-107) mmol/L BUN (9-20) mg/dL Glucose (74-99) mg/dL POC Glucose (mg/dL) 164 H 156 H 167 H (70-110) mg/dL Calcium (8.4-10.2) mg/dL Ionized Calcium Li (4.5-5.3) mg/dL Albumin (3.5-5.0) g/dL 06/30/22 06/30/22 06/30/22 Range/Units 07:28 07:28 10:11 RBC 2.73 L (4.30-5.90) m/uL Hgb 8.7 L (13.0-17.5) gm/dL Hct 26.3 L (39.0-53.0) % Chloride 111 H (98-107) mmol/L BUN 53 H (9-20) mg/dL Glucose 154 H (74-99) mg/dL POC Glucose (mg/dL) (70-110) mg/dL Calcium 6.4 L* (8.4-10.2) mg/dL Ionized Calcium Li 4.1 L (4.5-5.3) mg/dL Albumin 2.9 L (3.5-5.0) g/dL 06/30/22 Range/Units 11:31 RBC (4.30-5.90) m/uL Hgb (13.0-17.5) gm/dL Hct (39.0-53.0) % Chloride (98-107) mmol/L BUN (9-20) mg/dL Glucose (74-99) mg/dL POC Glucose (mg/dL) 176 H (70-110) mg/dL Calcium (8.4-10.2) mg/dL Ionized Calcium Li (4.5-5.3) mg/dL Albumin (3.5-5.0) g/dL
[2022-06-30 16:51] LABS: Glucose,Whole Blood 150 mg/dL (70-110)
[2022-06-30] MEDS: NON FORMULARY DRUG (Enzalutamide [Xtandi] 40 MG Capsule) PO SCH (18:24)
--- NOTE | 2022-06-30 19:42 | P.PN ---
Subjective Progress Note Date: 06/30/22 Principal diagnosis: failure to thrive In follow-up today patient is not as alert as he was yesterday, he opens his eyes briefly, does not attempt to communicate. Son is at the bedside. Objective - Vital Signs Vital signs: Vital Signs Temp 99.8 F H 06/30/22 16:36 Pulse 87 06/30/22 16:36 Resp 14 06/30/22 16:36 BP 136/69 06/30/22 16:36 Pulse Ox 99 06/30/22 16:36 FiO2 30 06/26/22 16:28 Intake & Output 06/30/22 06/30/22 07/01/22 06:59 18:59 06:59 Intake Total 125 50 Output Total 600 500 Balance -475 -450 Weight 55.5 kg Intake: IV 50 Intake, IV Titration 125 Amount Diltiazem 125 mg In 125 Sodium Chloride 0.9% 100 ml @ 10 MG/HR 10 mls/hr IV .[id number] [facility] Rx#: [id number] Output: Urine 600 500 Other: Voiding Method Indwelling Catheter Indwelling Catheter - Exam In gen weak, thin, frail male laying in bed, no acute distress, no verbal communication. Respirations are shallow, unlabored - Labs CBC & Chem 7: 06/30/22 07:28 06/30/22 07:28 Labs: Abnormal Lab Results - Last 24 Hours (Table) 06/29/22 06/30/22 06/30/22 Range/Units 20:05 06:02 07:28 RBC 2.73 L (4.30-5.90) m/uL Hgb 8.7 L (13.0-17.5) gm/dL Hct 26.3 L (39.0-53.0) % Chloride (98-107) mmol/L BUN (9-20) mg/dL Glucose (74-99) mg/dL POC Glucose (mg/dL) 156 H 167 H (70-110) mg/dL Calcium (8.4-10.2) mg/dL Ionized Calcium Li (4.5-5.3) mg/dL Albumin (3.5-5.0) g/dL 06/30/22 06/30/22 06/30/22 Range/Units 07:28 10:11 11:31 RBC (4.30-5.90) m/uL Hgb (13.0-17.5) gm/dL Hct (39.0-53.0) % Chloride 111 H (98-107) mmol/L BUN 53 H (9-20) mg/dL Glucose 154 H (74-99) mg/dL POC Glucose (mg/dL) 176 H (70-110) mg/dL Calcium 6.4 L* (8.4-10.2) mg/dL Ionized Calcium Li 4.1 L (4.5-5.3) mg/dL Albumin 2.9 L (3.5-5.0) g/dL 06/30/22 Range/Units 16:50 RBC (4.30-5.90) m/uL Hgb (13.0-17.5) gm/dL Hct (39.0-53.0) % Chloride (98-107) mmol/L BUN (9-20) mg/dL Glucose (74-99) mg/dL POC Glucose (mg/dL) 150 H (70-110) mg/dL Calcium (8.4-10.2) mg/dL Ionized Calcium Li (4.5-5.3) mg/dL Albumin (3.5-5.0) g/dL Assessment and Plan (1) Prostate cancer metastatic to bone Current Visit: No Status: Chronic Priority: Medium Code(s): C61 - MALIGNANT NEOPLASM OF PROSTATE; C79.51 - SECONDARY MALIGNANT NEOPLASM OF BONE SNOMED Code(s): 313891948 Plan: Last PSA in ofc was 06/22, 63.9. Though increase may be due to megace appetite stimulant so, this has been stopped. Plan is for repeat PSA in 1 mo to see if elevation is true or r/t medication-[facility] Pt currently on oral xtandi for metastatic prostate cancer. Pt did have swallow evaluation and unfortunately did fail. PEG tube inserted today. obtained ins tructions for giving patient Xtandi through the PEG tube. It was explained to the son that the manufacture of the drug cannot guarantee effectiveness of xtandi via PEG tube as this route of administration has not been studied. He verbalized understanding. I provided him with the information on exactly how to prepare the drug for the PEG tube. it was again explained to the son but the plan is for the PSA recheck in a couple of weeks. if there is a rising PSA that is suggestive of disease pr ogression then unfortunately, current treatment would no longer be considered effective and regimen would have to be changed. all questions answered to the best of my ability and to the patient's son satisfaction
[2022-06-30 20:15] LABS: Glucose,Whole Blood 165 mg/dL (70-110)
[2022-06-30] MEDS: MORPHINE SULFATE 2 MG/ML SYRINGE IVP PRN (23:47)
[2022-07-01] MEDS ORDERED: CARBIDOPA-LEVODOPA 25-100 MG 1 EACH TAB PO SCH
[2022-07-01] MEDS: MORPHINE SULFATE 2 MG/ML SYRINGE IVP PRN ×4 (05:27→21:57)
[2022-07-01 06:11] LABS: Glucose,Whole Blood 193 mg/dL (70-110)
[2022-07-01] MEDS: INSULIN ASPART (NovoLOG) 100 UNIT/ML VIAL SQ SCH ×4 (06:42→22:00)
--- NOTE | 2022-07-01 08:14 | XR ---
EXAMINATION TYPE: XR chest 1V DATE OF EXAM: 07/01/2022 6:46 AM COMPARISON: Chest radiographs from 06/27/2022 TECHNIQUE: XR chest 1V Frontal view of the chest. CLINICAL INDICATION:Male, 87 years old with history of sob; FINDINGS: Lungs/Pleura: Improved aeration throughout the lungs compared to prior with persistent airspace opaci ties. There is no evidence of pleural effusion, or pneumothorax. Pulmonary vascularity: Unremarkable. Heart/mediastinum: Cardiomediastinal silhouette is unremarkable. Atherosclerotic calcifications are seen in the aorta. Musculoskeletal: No acute osseous pathology. Heterogenous bone marrow involving the proximal humerus similar dating back to at least 03/16/2022. IMPRESSION: 1. Improved aeration of the lungs and compared to prior, persistent airspace opacities are present. 2. Superimposed COPD changes. 3. Heterogenous bone marrow is nonspecific. Clinical correlation advised. Similar dating back to at least 03/16/2022.
[2022-07-01] MEDS: ACETAMINOPHEN SUPPOSITORY 650 MG SUPP RECTAL PRN ×2 (08:26→23:55)
[2022-07-01] MEDS: TAMSULOSIN 0.4 MG CAP.ER.24H PO SCH ×2 (08:33→09:33)
[2022-07-01] MEDS: CARBIDOPA-LEVODOPA 25-100 MG 1 EACH TAB PO SCH ×4 (08:33→21:56)
[2022-07-01] MEDS: ASPIRIN 81 MG PO SCH ×2 (08:33→09:34)
[2022-07-01] MEDS: GABAPENTIN 100 MG CAP PO SCH ×4 (08:34→21:56)
[2022-07-01] MEDS: HEPARIN SODIUM,PORCINE/PF 5,000 UNIT/0.5 ML SYRINGE SQ SCH ×3 (09:34→23:54)
[2022-07-01] MEDS: FUROSEMIDE 10 MG/ML 2 ML VIAL IV SCH (09:34)
--- NOTE | 2022-07-01 09:34 | EEG ---
ELECTROENCEPHALOGRAM REPORT DATE OF SERVICE: 06/30/2022 CLINICAL HISTORY: This is an 87-year-old gentleman with history of Parkinson's who has altered mental status with body jerks. The video EEG is obtained to evaluate for seizure epileptiform activity. RELEVANT MEDICATION: The patient is not on any antiepileptic drugs. EEG TYPE: A routine 21-channel EEG is performed with video using the 10/20 electrode placement system. DESCRIPTION: Wakefulness is only obtained. During awake state, the background consists of low to moderate voltage of 5.5-6.5 hertz activity. There is no physiological stage 2 sleep architecture seen. There is no focal slowing. Interictal ictal is none. ACTIVATION PROCEDURE: Photic stimulation and hyperventilation is not performed. CLINICAL INTERPRETATION: This is an abnormal routine EEG. The background slowing is suggestive of moderate encephalopathy. Otherwise, there is no focal slowing, epileptiform discharge or seizure on the EEG. Clinical correlation is recommended. IVORY / LOLLY: [id number] / [id number]
--- NOTE | 2022-07-01 10:44 | P.PN ---
Subjective Patient is seen in follow-up for hyponatremia. Sodium level normal. Resting in bed. On nasal cannula. NPO as failed swallow eval. Had PEG tube placed yesterday. Tube feeds to be started today. Quite lethargic. Nonoliguric. On IV Lasix. Son present at bedside. On Cardizem drip for A. fib. Vital signs are stable. General: Resting in bed. HEENT: Head exam is unremarkable. On nasal cannula. LUNGS: Breath sounds decreased. HEART: Rate and Rhythm are regular. ABDOMEN: Soft, no distention. EXTREMITITES: No edema. Objective - Vital Signs Vital signs: Vital Signs Temp 100.7 F H 07/01/22 08:00 Pulse 95 07/01/22 08:00 Resp 16 07/01/22 08:00 BP 142/69 07/01/22 08:00 Pulse Ox 99 07/01/22 08:00 FiO2 30 06/26/22 16:28 Intake & Output 06/30/22 07/01/22 07/01/22 18:59 06:59 18:59 Intake Total 50 125 0 Output Total 500 500 Balance -450 -375 0 Weight 59 kg Intake: IV 50 Intake, IV Titration 125 Amount Diltiazem 125 mg In 125 Sodium Chloride 0.9% 100 ml @ 10 MG/HR 10 mls/hr IV .[id number] [facility] Rx#: [id number] Oral 0 Output: Urine 500 500 Other: Voiding Method Indwelling Catheter Indwelling Catheter Indwelling Catheter - Labs CBC & Chem 7: 06/30/22 07:28 06/30/22 07:28 Labs: Abnormal Lab Results - Last 24 Hours (Table) 06/30/22 06/30/22 06/30/22 Range/Units 10:11 11:31 16:50 POC Glucose (mg/dL) 176 H 150 H (70-110) mg/dL Ionized Calcium Li 4.1 L (4.5-5.3) mg/dL Albumin 2.9 L (3.5-5.0) g/dL 06/30/22 07/01/22 Range/Units 20:14 06:10 POC Glucose (mg/dL) 165 H 193 H (70-110) mg/dL Ionized Calcium Li (4.5-5.3) mg/dL Albumin (3.5-5.0) g/dL Assessment and Plan Plan: assessment: 1. Hyponatremia from poor solute intake. Hypervolemic. Resolved. On IV L asix. Also received Samsca this admission. Sodium level 143 yesterday. Urine sodium less than 20. Urine osmolality 554. TSH normal. 2. Acute hypoxic respiratory failure secondary to volume overload. Improved. 3. Prostate cancer with metastatic disease. 4. Benign hypertension. Stable. 5. Diabetes mellitus. 6. Parkinson's disease. Neurology following. 7. Urinary retention. Edward catheter placed. On Flomax. No hydronephrosis noted on kidney ultrasound. Left kidney not visualized. 8. Hypokalemia from poor intake and diuresis. Replaced. 10. A. fib with RVR maintained on Cardizem drip. 11. Hypocalcemia. Ionized calcium low. Due to diuresis. Vitamin D normal. Replaced. Plan: Change Lasix to 20 mg orally once daily starting tomorrow. Follow-up morning labs. Prognosis guarded.
--- NOTE | 2022-07-01 11:01 | P.PN ---
Subjective Progress Note Date: 07/01/22 The patient is seen at bedside and it seems he continues to be confused and having tremors. The son still wants to continues with medical management. He had PEG tube yesterday and is scheduled to have medications restarted. Objective - Vital Signs Vital signs: Vital Signs Temp 100.7 F H 07/01/22 08:00 Pulse 95 07/01/22 08:00 Resp 16 07/01/22 08:00 BP 142/69 07/01/22 08:00 Pulse Ox 99 07/01/22 08:00 FiO2 30 06/26/22 16:28 Intake & Output 06/30/22 07/01/22 07/01/22 18:59 06:59 18:59 Intake Total 50 125 0 Output Total 500 500 Balance -450 -375 0 Weight 59 kg Intake: IV 50 Intake, IV Titration 125 Amount Diltiazem 125 mg In 125 Sodium Chloride 0.9% 100 ml @ 10 MG/HR 10 mls/hr IV .[id number] [facility] Rx#: [id number] Oral 0 Output: Urine 500 500 Other: Voiding Method Indwelling Catheter Indwelling Catheter Indwelling Catheter - Exam GENERAL: The patient is lying in bed and is not in acute distress. NEUROLOGICAL: Limited because of his condition. Higher mental function: The patient is severely drowsy and is severly lethargic. He would opens his eyes briefly and attempted to follow one command (showing thumbs up). He is not verbalizing. Cranial nerves: NO facial weakness. He mouth tremor. Motor: Could not assess because of his cooperation/condition. He has resting tremors of bilateral uppers. - Labs CBC & Chem 7: 06/30/22 07:28 06/30/22 07:28 Labs: Abnormal Lab Results - Last 24 Hours (Table) 06/30/22 06/30/22 06/30/22 Range/Units 10:11 11:31 16:50 POC Glucose (mg/dL) 176 H 150 H (70-110) mg/dL Ionized Calcium Li 4.1 L (4.5-5.3) mg/dL Albumin 2.9 L (3.5-5.0) g/dL 06/30/22 07/01/22 Range/Units 20:14 06:10 POC Glucose (mg/dL) 165 H 193 H (70-110) mg/dL Ionized Calcium Li (4.5-5.3) mg/dL Albumin (3.5-5.0) g/dL Assessment and Plan Assessment: * Altered mental status, likely due to toxic metabolic encephalopathy and not receiving his medications (Parkinson's). Reasons multifactorial as mentioned below---mentation worsening * Electrolye derangement (Hyponatremia, hypocalcemia) * Dysphagia s/p PEG tube * Acute pulmonary edema * Metastatic prostate cancer with bony metastasis * CAD * Diabetes * Hyperlipidemia * Hypertension * Parkinson's disease Plan: * Dr. Beckett discontinued amantadine during this hospital visit. It can cause urinary retention and behavioral changes/confusions. * His home Sinemet 50-200mg ER 1 tab tid cannot be crushed so therefore started him on immediate release of same dose for now and he is scheduled to have medication today. * Routine EEG on 06/30/22: Is abnormal. The background slowing is suggestive of moderate encephalopathy. Otherwise, there is no focal slowing, epileptiform discharges or seizure on the EEG. * Speech therapy is on board. evaluation. * Treatment of other medical conditions as per IM and other specialties. * Prognosis is poor based upon multiple comorbidities conditions including t erminal prostate cancer. The plan is discussed with the patient's son (who is at bedside) and primary team. Time with Patient: Less than 30
--- NOTE | 2022-07-01 12:00 | P.PN ---
Subjective Progress Note Date: 07/01/22 CHIEF COMPLAINT: Malnutrition HISTORY OF PRESENT ILLNESS: Patient is postop day #1 status post PEG tube p lacement. Patient resting comfortably. Patient did have low-grade fevers. Temp of 100.7. Otherwise no new complaints. Labs for today are pending. Patient's son is at bedside. The son's questions were answered by Dr. holland Patient seen and examined with Dr. holland PHYSICAL EXAM: VITAL SIGNS: Reviewed. GENERAL: no acute distress. ABDOMEN: Soft. Nondistended. Nontender. NEUROLOGIC: Sleeping comfortably ASSESSMENT: 1. Moderate protein calorie malnutrition status post PEG tube placement 2. Failed swallow evaluation 3. Dysphagia 4. 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 Parkinson's disease PLAN: -Initiate tube feeds today -Consult dietitian to start tube feeds via PEG tube -Continue supportive care Physician Filler Machine Operator note has been reviewed by physician. Signing provider agrees with the documented findings, assessment, and plan of care. Objective - Vital Signs Vital signs: Vital Signs Temp 100.7 F H 07/01/22 08:00 Pulse 95 07/01/22 08:00 Resp 16 07/01/22 08:00 BP 142/69 07/01/22 08:00 Pulse Ox 99 07/01/22 08:00 FiO2 30 06/26/22 16:28 Intake & Output 06/30/22 07/01/22 07/01/22 18:59 06:59 18:59 Intake Total 50 125 0 Output Total 500 500 Balance -450 -375 0 Weight 59 kg Intake: IV 50 Intake, IV Titration 125 Amount Diltiazem 125 mg In 125 Sodium Chloride 0.9% 100 ml @ 10 MG/HR 10 mls/hr IV .[id number] [facility] Rx#: [id number] Oral 0 Output: Urine 500 500 Other: Voiding Method Indwelling Catheter Indwelling Catheter Indwelling Catheter - Labs CBC & Chem 7: 06/30/22 07:28 06/30/22 07:28 Labs: Abnormal Lab Results - Last 24 Hours (Table) 06/30/22 06/30/22 07/01/22 Range/Units 16:50 20:14 06:10 POC Glucose (mg/dL) 150 H 165 H 193 H (70-110) mg/dL
[2022-07-01 12:05] LABS: Glucose,Whole Blood 182 mg/dL (70-110)
--- NOTE | 2022-07-01 12:07 | P.PN ---
Subjective Progress Note Date: 07/01/22 Principal diagnosis: altered mental status Hospital Course: 87-year-old male with history of stage IV prostate cancer with bone metastases, Parkinson's disease, type 2 diabetes, hypertension, CAD status post PCI, ischemic cardiomyopathy with an EF of 40-45% stented with altered mental status and failure to thrive. Initially found to have severe hypervolemic hyponatremia likely in setting of CHF exacerbation. Patient was evaluated by cardiology and nephrology. Sodium improved with diuretics. Altered mental status likely secondary to severe hyponatremia versus worsening Parkinson's. Neurology was consulted. Amantadine was discontinued as it can potentially cause urinary retention and behavioral changes/confusion. Sinemet was continued. Patient had swallow evaluation, failed. Modified barium swallow also failed. Had multiple discussions with son and daughter in regards to poor overall prognosis. Son is adamant about giving his father a "fighting chance". After much back and forth between son and daughter, they agreed on getting a PEG tube for the father. Patient had PEG tube placed yesterday. We'll be starting trickle feeds today. Patient will also be receiving his oral medications through PEG tube. Oncology and palliative care was also consulted, and had similar views on his overall prognosis. Subjective: Patient seen and examined at bedside. No acute events overnight. Patient is more encephalopathic compared yesterday. He did have fever this morning. He is not able to verbalize any pain or shortness of breath. Pertinent positives and negatives as discussed above, a complete review of systems was performed and all other systems are negative. Vitals Signs Reviewed. General: nontoxic, no distress, appears at stated age, cachectic Derm: warm, dry, sacral decubitus wounds present on admission (reported by nurse) Head: atraumatic, normocephalic, symmetric Eyes: EOMI, no lid lag, anicteric sclera Mouth: no lip lesion, mucus membranes moist Cardiovascular: S1S2 reg, no murmur Lungs: CTA bilateral, no rhonchi, no rales , no accessory muscle use, supplemental oxygen Abdominal: soft, nontender to palpation, no guarding, no appreciable organomegaly Ext: no edema, no contractures Neuro: CN II-XI grossly intact, no focal neuro deficits, resting tremor Psych: Awake, not oriented Assessment and Plan: Febrile -Blood cultures, urine culture pending -Chest x-ray improved compared to prior -Wound care consulted for sacral decubitus ulcers present on admission -Tylenol as needed for fever Altered mental status, possibly secondary to severe hyponatremia versus worsening Parkinson's Severe protein calorie malnutrition -Neurology consulted -Sinemet through her PEG tube -holding amantadine -EEG showed no focal slowing, epileptiform discharge or seizure Severe hyponatremia, hypervolemic -improved Acute on chronic systolic Heart Failure Exacerbation, EF is mildly to moderately reduced per Echo on 05/26/22 -Fluid restriction, diuresis IV, now on oral Lasix -Nephrology consult, received tolvaptan -Monitor BMP -Cardiology consult Wide complex tachycardia - prior EKG, possible AFib -On cardizem gtt per cardiology -We'll transition to oral Cardizem once patient able to tolerate PEG feeds stage IV prostate cancer -Oncology consult -Also seen by palliative -Prognosis remains poor Chronic conditions: Type II DM, coronary artery disease -Continue with home meds -Insulin sliding scale with blood glucose monitoring DVT prophylaxis -Heparin subq CODE STATUS: Full Code Anticipated discharge date: 3-4 days, depending on if able to get to goal feeds Anticipated discharge place: Home with home care, patient's family is declining rehab Objective - Vital Signs Vital signs: Vital Signs Temp 100.7 F H 07/01/22 08:00 Pulse 95 07/01/22 08:00 Resp 16 07/01/22 08:00 BP 142/69 07/01/22 08:00 Pulse Ox 99 07/01/22 08:00 FiO2 30 06/26/22 16:28 Intake & Output 06/30/22 07/01/22 07/01/22 18:59 06:59 18:59 Intake Total 50 125 0 Output Total 500 500 Balance -450 -375 0 Weight 59 kg Intake: IV 50 Intake, IV Titration 125 Amount Diltiazem 125 mg In 125 Sodium Chloride 0.9% 100 ml @ 10 MG/HR 10 mls/hr IV .[id number] [facility] Rx#: [id number] Oral 0 Output: Urine 500 500 Other: Voiding Method Indwelling Catheter Indwelling Catheter Indwelling Catheter - Labs CBC & Chem 7: 06/30/22 07:28 06/30/22 07:28 Labs: Abnormal Lab Results - Last 24 Hours (Table) 06/30/22 06/30/22 07/01/22 Range/Units 16:50 20:14 06:10 POC Glucose (mg/dL) 150 H 165 H 193 H (70-110) mg/dL
[2022-07-01 12:26] LABS: African American GFR (CKD) >90 (>60 ml/min/1.73 sqM); Anion Gap 11 mmol/L; Blood Urea Nitrogen 50 mg/dL (9-20); Calcium 6.5 mg/dL (8.4-10.2); Carbon Dioxide 24 mmol/L (22-30); Chloride 113 mmol/L (98-107); Glucose 182 mg/dL (74-99); Magnesium 2.3 mg/dL (1.6-2.3); Non-African American GFR(CKD) 78 (>60 ml/min/1.73 sqM); Potassium 3.2 mmol/L (3.5-5.1); Sodium 148 mmol/L (137-145)
[2022-07-01] MEDS: DILTIAZEM 125 MG in SODIUM CHLORIDE 0.9% 100 ML IV SCH (15:18)
--- NOTE | 2022-07-01 15:29 | P.PN ---
Subjective Progress Note Date: 07/01/22 Principal diagnosis: AMS The patient is an 87-year-old male with a PMH of 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 He was brought into the emergency room on 06/24/22 by his son for altered mental status and failure to thrive. Per the son, the patient who has been on Sinemet for several years recently had it discontinued by Dr. Luz and started on amantadine. The son reports that ever since the medication change, his father has not been quite himself. He reports that the patient has now developed worsening tremors and has been increasingly confused and refusing to eat or drink much. At baseline, he reports that his father is oriented 3 and was able to use his walker to ambulate throughout the house and get himself out of bed and seat himself on the toilet. He reports that since the medication change, the patient is also suffered several falls leading to the bruising over his arms. The patient was not answering any questions appropriately. Head/cervical spine CT in the emergency room was consistent with metastatic osteoblastic disease. Pelvis x- ray also unremarkable aside from stable metastatic disease. Chest x-ray revea led pulmonary edema and pleural fluid, possible CHF. Right forearm x-ray was unremarkable. EKG reveals sinus rhythm with left axis deviation a 69 bpm with a left bundle branch block. Initially found to have severe hypervolemic hyponatremia likely in setting of CHF exacerbation. Patient was evaluated by cardiology and nephrology. Sodium improved with diuretics. Altered mental status likely secondary to severe hyponatremia versus worsening Parkinson's. Neurology is allyson following.. Amantadine was discontinued as it can potentially cause urinary retention and behavioral changes/confusion. Sinemet was continued. Patient had swallow evaluation, failed. Modified barium swallow also failed. Patient's son would prefer to eventually take him home with a feeding tube, the patient's daughter does not believe that is the right course. Patient has not signed anyone has his primary decision maker. 06/29 The patient is resting in bed and appears comfortable. His speech is slurred and very hard to understand. Had a phone conversation with the patient's daughter in attempt to set up a family meeting. Palliative care philosophies and services explained. Unfortunately, she lives in [place]. She voiced many concerns regarding her father. She is concerned that her brother may need help caring for her father. Her brother has to work and the patient is then left alone for periods of time and has fallen on multiple occasions. She stated that she has had conversations with her father in the past regarding end of life. Back in 2018 he did agree to be fully resuscitated, placed on a ventilator if it were short term, and for placement of a feeding tube. She is worried that her brother is unrealistic and not able to face that their dad is near the end of his life. She values quality of life over quantity of life. The patient's son is at the bedside, and his sister is on speakerphone for family meeting. After I introduced myself, the son was defensive and stated he did not want me there or to talk about his father's medical issues with him. The discussion regarding PEG tube placement was non-productive. Attempted to talk about why PEG tube is not recommended for patient's with dementia. There is still risks of bleeding, infection, and aspiration involved with the peg tube. There is also a concern that he may pull it out. The patient's son stated that his father was getting the PEG tube tomorrow no matter what I say. It was difficult to talk and make a point during without being interrupted. the son was not interested in listening. It was explained multiple times that palliative care is a support service to help guide them in determining which treatments are beneficial and which may cause undue burden. he repeated that he did not want me there. The patient's daughter was trying to gather information and understand her father's condition to make good decisions. The son was angry telling her to shut up and to stop getting in the way of their dad's treatment. He stated she had no right to put conditions on his care. She would like someone to be there 24 hours a day to care for her father and to keep him safe. The son insists that his father is telling him that he doesn't want to give up and wants to continue treatment. I only observed the patient repeating what he was told to say. He is confused and not capable of making his own decisions at this time. Voiced concern about the patient's recent decline in functional status. Neha Galicia, oncology PHOTOENGRAVING RETOUCHER, was called to clarify if they would continue the patient's Xtandi if the patient got a peg tube placed. She stated that he has done well with the treatment in the past. She will check into if the medication can be crushed and administered through a peg tube. If it is able to, they could resume his Xtandi immediately after peg placement. The patient's son stated if they are unable to continue his father's treatment here, then he will take him to [facility] for a second opinion. Ultimately, after much arguing, the patient's son and daughter agreed to proceed with a peg tube placement tomorrow. Objective - Vital Signs Vital signs: Vital Signs Temp 97.8 F 07/01/22 12:30 Pulse 87 07/01/22 12:30 Resp 18 07/01/22 12:30 BP 127/81 07/01/22 12:30 Pulse Ox 98 07/01/22 12:30 FiO2 30 06/26/22 16:28 Intake & Output 06/30/22 07/01/22 07/01/22 18:59 06:59 18:59 Intake Total 50 125 0 Output Total 500 500 Balance -450 -375 0 Weight 59 kg 59 kg Intake: IV 50 Intake, IV Titration 125 Amount Diltiazem 125 mg In 125 Sodium Chloride 0.9% 100 ml @ 10 MG/HR 10 mls/hr IV .[id number] [facility] Rx#: [id number] Oral 0 Output: Urine 500 500 Other: Voiding Method Indwelling Catheter Indwelling Catheter Indwelling Catheter - Labs CBC & Chem 7: 06/30/22 07:28 07/01/22 11:46 Labs: Abnormal Lab Results - Last 24 Hours (Table) 06/30/22 06/30/22 07/01/22 Range/Units 16:50 20:14 06:10 Sodium (137-145) mmol/L Potassium (3.5-5.1) mmol/L Chloride (98-107) mmol/L BUN (9-20) mg/dL Glucose (74-99) mg/dL POC Glucose (mg/dL) 150 H 165 H 193 H (70-110) mg/dL Calcium (8.4-10.2) mg/dL 07/01/22 07/01/22 Range/Units 11:46 11:46 Sodium 148 H (137-145) mmol/L Potassium 3.2 L (3.5-5.1) mmol/L Chloride 113 H (98-107) mmol/L BUN 50 H (9-20) mg/dL Glucose 182 H (74-99) mg/dL POC Glucose (mg/dL) 182 H (70-110) mg/dL Calcium 6.5 L (8.4-10.2) mg/dL Assessment and Plan Assessment: Symptoms * Pain - CPOT 6, continue Neurotin and Morphine prn * Fatigue - + generalized weakness and fatigue * SOB - Yes, on 3L NC * Insomnia - No * N/V - No * Anxiety - No * Depression - No * Confusion - Yes * Agitation - No * Hallucinations - No * Appetite/weight loss - NPO, failed swallow eval and MBS * Dysphagia - Yes, PEG tube in place, Tube feeding to start today * Constipation - No BM recorded * Incontinence - Edward catheter * Itch - No Plan: Summary/Goals - The patient is lying in bed and appears less responsive today. He does grimace and moan out in pain occasionally. His son is at the bedside. He does not believe his father is suffering and is still adamant about doing everything to give him a fighting chance. Unfortunately the patient has a very poor prognosis. The son is asking for a list of ambulance companies that can help transport his father home when he is discharged. He was informed that his father will be here for a while yet. Code Status - Full code Malu Spencer [facility] Palliative Care [facility] [id number] Email: [email or web address] Time with Patient: Greater than 30
--- NOTE | 2022-07-01 16:05 | CT ---
EXAMINATION TYPE: CT brain wo con CT DLP: 1154.6 mGycm, Automated exposure control for dose reduction was used. DATE OF EXAM: 07/01/2022 3:57 PM COMPARISON: CT brain 06/24/2022. CLINICAL INDICATION:Male, 87 years old with history of altered mental status, ams TECHNIQUE: Brain: Axial CT images of the brain were obtained with coronal and sagittal reformats created and rev iewed. Contrast used: None. Oral contrast used: None. FINDINGS: Brain: Extra-axial spaces: No abnormal extra-axial fluid collections. Ventricular system: Dilatation in proportion to cerebral atrophy. Cerebral parenchyma: Cerebral atrophy. No acute intraparenchymal hemorrhage or mass effect. The ennis -white junction is well differentiated. Scattered hypoattenuating areas are seen within the white mat ter. Cerebellum: Unremarkable. Mass effect: No evidence of midline shift. Intracranial vasculature: Atherosclerotic calcifications of the intracranial vessels. Soft tissues: Normal. Calvarium/osseous structures: No depressed skull fracture. Heterogenous bone marrow signal consistent with known metastatic osseous disease. Paranasal sinuses and mastoid air cells: Mild scattered paranasal sinus disease. Visualized orbits: Bilateral aphakia IMPRESSION: 1. No acute intracranial process. 2. Nonspecific white matter changes, likely secondary to chronic small vessel ischemic disease. 3. Osseous metastatic disease
[2022-07-01] MEDS ORDERED: POTASSIUM CHLORIDE ER 20 MEQ TAB.ER PO STA (16:34)
[2022-07-01 16:44] LABS: Glucose,Whole Blood 207 mg/dL (70-110)
[2022-07-01] MEDS: DEXTROSE 5% IN WATER 1,000 ML IV SCH (17:47)
[2022-07-01 19:38] LABS: Glucose,Whole Blood 183 mg/dL (70-110)
[2022-07-01 21:01] LABS: Appearance,Urine Clear (Clear); Bacteria,Urine Rare /hpf; Bilirubin,Urine 1+ (Negative); Blood,Urine Small (Negative); Color,Urine Yellow; Glucose,Urine (UA) 1+ (Negative); Hyaline Casts,Urine 7 /lpf (0-2); Ketones,Urine 1+ (Negative); Leukocyte Esterase,Urine Negative (Negative); Mucus,Urine Few /hpf; Nitrite,Urine Negative (Negative); Protein,Urine 3+ (Negative); RBC,Urine 1 /hpf (0-5); Specific Gravity,Urine 1.027 (1.001-1.035); Urobilinogen,Urine <2.0 mg/dL (<2.0); WBC,Urine 2 /hpf (0-5)
[2022-07-01] MEDS: NON FORMULARY DRUG (Enzalutamide [Xtandi] 40 MG Capsule) PO SCH (21:56)
[2022-07-02] MEDS: DILTIAZEM 125 MG in SODIUM CHLORIDE 0.9% 100 ML IV SCH ×2 (01:42→12:47)
[2022-07-02 05:53] LABS: Glucose,Whole Blood 230 mg/dL (70-110)
[2022-07-02] MEDS: INSULIN ASPART (NovoLOG) 100 UNIT/ML VIAL SQ SCH ×4 (06:43→20:42)
[2022-07-02] MEDS: DEXTROSE 5% IN WATER 1,000 ML IV SCH ×2 (06:47→20:48)
--- NOTE | 2022-07-02 09:18 | P.PN ---
Progress Note - Text Progress Note Date: 07/02/22 PEG tube site is clean. Patient to receive tube feeds.
[2022-07-02] MEDS: ASPIRIN 81 MG PO SCH (10:11)
[2022-07-02] MEDS: CARBIDOPA-LEVODOPA 25-100 MG 1 EACH TAB PO SCH ×3 (10:11→20:41)
[2022-07-02] MEDS: GABAPENTIN 100 MG CAP PO SCH ×3 (10:12→20:41)
[2022-07-02] MEDS: TAMSULOSIN 0.4 MG CAP.ER.24H PO SCH (10:12)
[2022-07-02] MEDS: HEPARIN SODIUM,PORCINE/PF 5,000 UNIT/0.5 ML SYRINGE SQ SCH (10:12)
[2022-07-02] MEDS: FUROSEMIDE 20 MG TAB PO SCH (10:12)
--- NOTE | 2022-07-02 10:51 | P.PN ---
Subjective Patient is seen for follow-up for hyponatremia. Currently maintained on tube feedings Sodium has increased to 148 yesterday from 143 the day before. Labs are pending from today. Receiving 110 ML of free water down the feeding tube every 4 hours. D5W at 75 mL an hour was started yesterday as well. Objective - Vital Signs Vital signs: Vital Signs Temp 100.1 F H 07/02/22 04:00 Pulse 88 07/02/22 04:00 Resp 18 07/02/22 04:00 BP 116/58 07/02/22 04:00 Pulse Ox 99 07/02/22 04:00 FiO2 30 06/26/22 16:28 Intake & Output 07/01/22 07/02/22 07/02/22 18:59 06:59 18:59 Intake Total 245 104 Output Total 600 Balance -355 104 Weight 59 kg Intake: Intake, IV Titration 125 104 Amount Diltiazem 125 mg In 125 104 Sodium Chloride 0.9% 100 ml @ 10 MG/HR 10 mls/hr IV .[id number] [facility] Rx#: [id number] Oral 0 Tube Feeding 120 Output: Urine 600 Uretheral (Edward) 600 Other: Voiding Method Indwelling Catheter Indwelling Catheter - Exam Patient is sleeping but arousable Examination of the heart S1 and S2 Examination of the lungs decreased breath sounds at the bases Abdomen is soft nontender Examination lower extremities shows trace edema - Labs CBC & Chem 7: 06/30/22 07:28 07/01/22 11:46 Labs: Abnormal Lab Results - Last 24 Hours (Table) 07/01/22 07/01/22 07/01/22 Range/Units 11:46 11:46 16:29 Sodium 148 H (137-145) mmol/L Potassium 3.2 L (3.5-5.1) mmol/L Chloride 113 H (98-107) mmol/L BUN 50 H (9-20) mg/dL Glucose 182 H (74-99) mg/dL POC Glucose (mg/dL) 182 H (70-110) mg/dL Calcium 6.5 L (8.4-10.2) mg/dL Urine Protein 3+ H (Negative) Urine Glucose (UA) 1+ H (Negative) Urine Ketones 1+ H (Negative) Urine Blood Small H (Negative) Urine Bilirubin 1+ H (Negative) Urine Bacteria Rare H (None) /hpf Hyaline Casts 7 H (0-2) /lpf Urine Mucus Few H (None) /hpf 07/01/22 07/01/22 07/02/22 Range/Units 16:35 19:34 05:51 Sodium (137-145) mmol/L Potassium (3.5-5.1) mmol/L Chloride (98-107) mmol/L BUN (9-20) mg/dL Glucose (74-99) mg/dL POC Glucose (mg/dL) 207 H 183 H 230 H (70-110) mg/dL Calcium (8.4-10.2) mg/dL Urine Protein (Negative) Urine Glucose (UA) (Negative) Urine Ketones (Negative) Urine Blood (Negative) Urine Bilirubin (Negative) Urine Bacteria (None) /hpf Hyaline Casts (0-2) /lpf Urine Mucus (None) /hpf Assessment and Plan Assessment: 1. Hyponatremia from poor solute intake. Hypervolemic. Resolved. On IV Lasix. Also received Samsca this admission. Sodium level 148 yesterday. Urine sodium less than 20. Urine osmolality 554. TSH normal. Started D5W yesterday 2. Acute hypoxic respiratory failure secondary to volume overload. Improved. 3. Prostate cancer with metastatic disease. 4. Benign hypertension. Stable. 5. Diabetes mellitus. 6. Parkinson's disease. Neurology following. 7. Urinary retention. Edward catheter placed. On Flomax. No hydronephrosis noted on kidney ultrasound. Left kidney not visualized. 8. Hypokalemia from poor intake and diuresis. Replaced. 10. A. fib with RVR maintained on Cardizem drip. 11. Hypocalcemia. Ionized calcium low. Due to diuresis. Vitamin D normal. Replaced. Plan: Continue D5W Follow-up on labs from today Increase free water flushes to 200 every 4 hours in the meantime.
--- NOTE | 2022-07-02 12:29 | P.PN ---
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 Initially found to have severe hypervolemic hyponatremia likely in setting of CHF exacerbation. Patient was evaluated by cardiology and nephrology. Sodium improved with diuretics. Altered mental status likely secondary to severe hyponatremia versus worsening Parkinson's. Neurology was consulted. Amantadine was discontinued as it can potentially cause urinary retention and behavioral changes/confusion. Sinemet was continued. Patient had swallow evaluation, failed. Modified barium swallow also failed. Had multiple discussions with son and daughter in regards to poor overall prognosis. Son is adamant about giving his father a "fighting chance". After much back and forth between son and daughter, they agreed on getting a PEG tube for the father. Patient had PEG tube placed, tolerating feeds well. Oncology and palliative c are was also consulted, and had similar views on his overall prognosis. Subjective: Patient seen and examined at bedside. No acute events overnight. Patient mental status has improved slightly. He is not able to verbalize any pain or shortness of breath. Pertinent positives and negatives as discussed above, a complete review of systems was performed and all other systems are negative. Vitals Signs Reviewed. General: nontoxic, no distress, appears at stated age, cachectic Derm: warm, dry, sacral decubitus wounds present on admission (reported by nurse) Head: atraumatic, normocephalic, symmetric Eyes: EOMI, no lid lag, anicteric sclera Mouth: no lip lesion, mucus membranes moist Cardiovascular: S1S2 reg, no murmur Lungs: CTA bilateral, no rhonchi, no rales , no accessory muscle use, supplemental oxygen Abdominal: soft, nontender to palpation, no guarding, no appreciable organo megaly Ext: no edema, no contractures Neuro: CN II-XI grossly intact, no focal neuro deficits, resting tremor Psych: Awake, not oriented Assessment and Plan: Hypernatremia -nephrology following -now on D5W and free water flushes through PEG tube Febrile - resolved -Blood cultures, urine culture pending -Chest x-ray improved compared to prior -Wound care consulted for sacral decubitus ulcers present on admission -Tylenol as needed for fever Altered mental status, possibly secondary to severe hyponatremia versus worsening Parkinson's Severe protein calorie malnutrition -Neurology consulted -Sinemet through her PEG tube -holding amantadine -EEG showed no focal slowing, epileptiform discharge or seizure Severe hyponatremia, hypervolemic -improved Acute on chronic systolic Heart Failure Exacerbation, EF is mildly to moderately reduced per Echo on 05/26/22 -now on oral Lasix per nephrology -Nephrology consult, received tolvaptan -Monitor BMP -Cardiology consult Wide complex tachycardia - prior EKG, possible AFib -On cardizem gtt per cardiology -We'll transition to oral Cardizem once patient able to tolerate PEG feeds stage IV prostate cancer -Oncology consult -Also seen by palliative -Prognosis remains poor Chronic conditions: Type II DM, coronary artery disease -Continue with home meds -Insulin sliding scale with blood glucose monitoring DVT prophylaxis -lovenox CODE STATUS: Full Code Anticipated discharge date: 3-4 days, depending on if able to get to goal feeds Anticipated discharge place: Home with home care, patient's family is declining rehab Objective - Vital Signs Vital signs: Vital Signs Temp 100.1 F H 07/02/22 04:00 Pulse 88 07/02/22 04:00 Resp 18 07/02/22 04:00 BP 116/58 07/02/22 04:00 Pulse Ox 99 07/02/22 04:00 FiO2 30 06/26/22 16:28 Intake & Output 07/01/22 07/02/22 07/02/22 18:59 06:59 18:59 Intake Total 245 104 Output Total 600 Balance -355 104 Weight 59 kg Intake: Intake, IV Titration 125 104 Amount Diltiazem 125 mg In 125 104 Sodium Chloride 0.9% 100 ml @ 10 MG/HR 10 mls/hr IV .[id number] [facility] Rx#: [id number] Oral 0 Tube Feeding 120 Output: Urine 600 Uretheral (Edward) 600 Other: Voiding Method Indwelling Catheter Indwelling Catheter - Labs CBC & Chem 7: 06/30/22 07:28 07/01/22 11:46 Labs: Abnormal Lab Results - Last 24 Hours (Table) 07/01/22 07/01/22 07/01/22 Range/Units 11:46 16:29 16:35 Sodium 148 H (137-145) mmol/L Potassium 3.2 L (3.5-5.1) mmol/L Chloride 113 H (98-107) mmol/L BUN 50 H (9-20) mg/dL Glucose 182 H (74-99) mg/dL POC Glucose (mg/dL) 207 H (70-110) mg/dL Calcium 6.5 L (8.4-10.2) mg/dL Urine Protein 3+ H (Negative) Urine Glucose (UA) 1+ H (Negative) Urine Ketones 1+ H (Negative) Urine Blood Small H (Negative) Urine Bilirubin 1+ H (Negative) Urine Bacteria Rare H (None) /hpf Hyaline Casts 7 H (0-2) /lpf Urine Mucus Few H (None) /hpf 07/01/22 07/02/22 Range/Units 19:34 05:51 Sodium (137-145) mmol/L Potassium (3.5-5.1) mmol/L Chloride (98-107) mmol/L BUN (9-20) mg/dL Glucose (74-99) mg/dL POC Glucose (mg/dL) 183 H 230 H (70-110) mg/dL Calcium (8.4-10.2) mg/dL Urine Protein (Negative) Urine Glucose (UA) (Negative) Urine Ketones (Negative) Urine Blood (Negative) Urine Bilirubin (Negative) Urine Bacteria (None) /hpf Hyaline Casts (0-2) /lpf Urine Mucus (None) /hpf
[2022-07-02 12:37] LABS: Basophils % (A) 0 %; Eosinophils # (A) 0.2 k/uL (0-0.7); Eosinophils % (A) 2 %; HCT 24.8 % (39.0-53.0); Hypochromasia Slight; Lymphocytes # (A) 0.8 k/uL (1.0-4.8); Lymphocytes % (A) 7 %; MCH 31.7 pg (25.0-35.0); MCHC 32.4 g/dL (31.0-37.0); MCV 97.8 fL (80.0-100.0); Mean Platelet Volume 8.8; Monocytes # (A) 0.2 k/uL (0-1.0); Monocytes % (A) 2 %; Neutrophils # (A) 10.2 k/uL (1.3-7.7); Neutrophils % (A) 89 %; Platelet Count 177 k/uL (150-450); RBC 2.54 m/uL (4.30-5.90); RDW 14.8 % (11.5-15.5); WBC 11.5 k/uL (3.8-10.6)
[2022-07-02 12:57] LABS: Calcium 7.2 mg/dL (8.4-10.2); Magnesium 2.3 mg/dL (1.6-2.3); Phosphorus 2.7 mg/dL (2.5-4.5); Potassium 3.8 mmol/L (3.5-5.1)
--- NOTE | 2022-07-02 13:30 | P.PN ---
Subjective Progress Note Date: 07/02/22 The patient is seen at bedside and is accompanied by his son (bedside) who states there is improved from yesterday till today. Objective - Vital Signs Vital signs: Vital Signs Temp 100.1 F H 07/02/22 04:00 Pulse 88 07/02/22 04:00 Resp 18 07/02/22 04:00 BP 116/58 07/02/22 04:00 Pulse Ox 99 07/02/22 04:00 FiO2 30 06/26/22 16:28 Intake & Output 07/01/22 07/02/22 07/02/22 18:59 06:59 18:59 Intake Total 245 104 Output Total 600 Balance -355 104 Weight 59 kg Intake: Intake, IV Titration 125 104 Amount Diltiazem 125 mg In 125 104 Sodium Chloride 0.9% 100 ml @ 10 MG/HR 10 mls/hr IV .[id number] [facility] Rx#: [id number] Oral 0 Tube Feeding 120 Output: Urine 600 Uretheral (Edward) 600 Other: Voiding Method Indwelling Catheter Indwelling Catheter - Exam GENERAL: The patient is lying in bed and is not in acute distress. Looks lethargic. NEUROLOGICAL: Limited because of his condition. Higher mental function: The patient is drowsy but responsive to verbal stimuli. He is oriented to self, stated his name. He was able to follow simple commands (thumbs up and sticking tongue out). Cranial nerves: Pupils are round, equal and reactive to light. NO facial we akness. Very hypophonic. Motor: Is able to lift upper and lowers above gravity. He has some resting tremors of bilateral uppers (but better today). - Labs CBC & Chem 7: 07/02/22 11:57 07/02/22 11:57 Labs: Abnormal Lab Results - Last 24 Hours (Table) 07/01/22 07/01/22 07/01/22 Range/Units 11:46 11:46 16:29 Sodium 148 H (137-145) mmol/L Potassium 3.2 L (3.5-5.1) mmol/L Chloride 113 H (98-107) mmol/L BUN 50 H (9-20) mg/dL Glucose 182 H (74-99) mg/dL POC Glucose (mg/dL) 182 H (70-110) mg/dL Calcium 6.5 L (8.4-10.2) mg/dL Urine Protein 3+ H (Negative) Urine Glucose (UA) 1+ H (Negative) Urine Ketones 1+ H (Negative) Urine Blood Small H (Negative) Urine Bilirubin 1+ H (Negative) Urine Bacteria Rare H (None) /hpf Hyaline Casts 7 H (0-2) /lpf Urine Mucus Few H (None) /hpf 07/01/22 07/01/22 07/02/22 Range/Units 16:35 19:34 05:51 Sodium (137-145) mmol/L Potassium (3.5-5.1) mmol/L Chloride (98-107) mmol/L BUN (9-20) mg/dL Glucose (74-99) mg/dL POC Glucose (mg/dL) 207 H 183 H 230 H (70-110) mg/dL Calcium (8.4-10.2) mg/dL Urine Protein (Negative) Urine Glucose (UA) (Negative) Urine Ketones (Negative) Urine Blood (Negative) Urine Bilirubin (Negative) Urine Bacteria (None) /hpf Hyaline Casts (0-2) /lpf Urine Mucus (None) /hpf Assessment and Plan Assessment: * Altered mental status, likely due to toxic metabolic encephalopathy and not receiving his medications (Parkinson's). Reasons multifactorial as mentioned below---mentation mildly improving today * Electrolye derangement (Hyponatremia, hypocalcemia) * Dysphagia s/p PEG tube * Acute pulmonary edema * Metastatic prostate cancer with bony metastasis * CAD * Diabetes * Hyperlipidemia * Hypertension * Parkinson's disease Plan: * Dr. Beckett discontinued amantadine during this hospital visit. It can cause urinary retention and behavioral changes/confusions. * His home Sinemet 50-200mg ER 1 tab tid cannot be crushed so therefore started him on immediate release of same dose for now. He seems better today compared to last two days but if he continues to have tremors, will increase to 1 tab qid. * Routine EEG on 06/30/22: Is abnormal. The background slowing is suggestive of moderate encephalopathy. Otherwise, there is no focal slowing, epileptiform discharges or seizure on the EEG. * Repeat CT head: No acute intracranial process. Nonspecific white matter changes, likely secondary to chronic small vessel ischemic disease. Osseous metastatic disease. I personally reviewed the CT of the head and there is no acute subacute ischemia and there is no focal or hemorrhage. There is no mass effect. * Speech therapy is on board. evaluation. * Treatment of other medical conditions as per IM and other specialties. * Prognosis is poor based upon multiple comorbidities conditions including terminal prostate cancer. The plan is discussed with the patient's son (who is at bedside) and primary team. Time with Patient: Less than 30
[2022-07-02 16:44] LABS: Glucose,Whole Blood 231 mg/dL (70-110)
[2022-07-02 19:29] LABS: African American GFR (CKD) >90 (>60 ml/min/1.73 sqM); Anion Gap 7 mmol/L; Blood Urea Nitrogen 52 mg/dL (9-20); Calcium 7.5 mg/dL (8.4-10.2); Carbon Dioxide 24 mmol/L (22-30); Chloride 109 mmol/L (98-107); Glucose 192 mg/dL (74-99); Non-African American GFR(CKD) 79 (>60 ml/min/1.73 sqM); Potassium 3.9 mmol/L (3.5-5.1); Sodium 140 mmol/L (137-145)
[2022-07-02 20:33] LABS: Glucose,Whole Blood 223 mg/dL (70-110)
[2022-07-02] MEDS: NON FORMULARY DRUG (Enzalutamide [Xtandi] 40 MG Capsule) PO SCH (20:41)
[2022-07-02] MEDS: MORPHINE SULFATE 2 MG/ML SYRINGE IVP PRN (20:42)
[2022-07-03] MEDS: DILTIAZEM 125 MG in SODIUM CHLORIDE 0.9% 100 ML IV SCH ×2 (00:14→18:21)
[2022-07-03 06:05] LABS: Glucose,Whole Blood 252 mg/dL (70-110)
[2022-07-03] MEDS: INSULIN ASPART (NovoLOG) 100 UNIT/ML VIAL SQ SCH ×4 (06:31→21:14)
[2022-07-03 06:43] LABS: Basophils % (A) 0 %; Eosinophils # (A) 0.2 k/uL (0-0.7); Eosinophils % (A) 2 %; Hypochromasia Moderate; Lymphocytes # (A) 0.6 k/uL (1.0-4.8); Lymphocytes % (A) 5 %; MCH 31.8 pg (25.0-35.0); MCHC 32.1 g/dL (31.0-37.0); MCV 99.1 fL (80.0-100.0); Mean Platelet Volume 8.7; Monocytes # (A) 0.3 k/uL (0-1.0); Monocytes % (A) 2 %; Neutrophils # (A) 11.4 k/uL (1.3-7.7); Neutrophils % (A) 90 %; Platelet Count 167 k/uL (150-450); RBC 2.53 m/uL (4.30-5.90); RDW 14.5 % (11.5-15.5); WBC 12.6 k/uL (3.8-10.6)
[2022-07-03 07:01] LABS: ALT 16 U/L (4-49); AST 37 U/L (17-59); African American GFR (CKD) >90 (>60 ml/min/1.73 sqM); Albumin 2.5 g/dL (3.5-5.0); Alkaline Phosphatase 258 U/L (38-126); Anion Gap 7 mmol/L; Blood Urea Nitrogen 52 mg/dL (9-20); Calcium 7.6 mg/dL (8.4-10.2); Carbon Dioxide 25 mmol/L (22-30); Chloride 105 mmol/L (98-107); Glucose 231 mg/dL (74-99); Magnesium 2.2 mg/dL (1.6-2.3); Non-African American GFR(CKD) 79 (>60 ml/min/1.73 sqM); Potassium 4.4 mmol/L (3.5-5.1); Sodium 137 mmol/L (137-145); Total Bilirubin 0.6 mg/dL (0.2-1.3)
[2022-07-03] MEDS: GABAPENTIN 100 MG CAP PO SCH ×3 (09:55→21:15)
[2022-07-03] MEDS: ENOXAPARIN 40 MG/0.4 ML SYRINGE SQ SCH (09:55)
[2022-07-03] MEDS: TAMSULOSIN 0.4 MG CAP.ER.24H PO SCH (09:55)
[2022-07-03] MEDS: FUROSEMIDE 20 MG TAB PO SCH (09:55)
[2022-07-03] MEDS: CARBIDOPA-LEVODOPA 25-100 MG 1 EACH TAB PO SCH ×4 (09:55→21:15)
[2022-07-03] MEDS: ASPIRIN 81 MG PO SCH (09:55)
[2022-07-03] MEDS: DILTIAZEM ORAL 60 MG TAB PO SCH ×2 (09:55→16:49)
[2022-07-03] MEDS: MORPHINE SULFATE 2 MG/ML SYRINGE IVP PRN ×3 (10:20→21:19)
--- NOTE | 2022-07-03 10:45 | XR ---
EXAMINATION TYPE: XR abdomen 1V DATE OF EXAM: 07/03/2022 COMPARISON: 02/28/2022 INDICATION: Abdomen pain TECHNIQUE: Single view abdomen FINDINGS: Normal colonic bowel gas is present. There is abundant fecal debris within the ascending colon. Fecal debris is also present in the transverse colon and proximal ascending colon. Correlate for constipat ion. Suspicious small bowel loops are not identified. Tube is present on the left. Psoas margins are normal. No organomegaly is present. There is a heterogenous appearance through the pelvis and bilateral hips. Correlate for metastatic di sease. IMPRESSION: 1. Fecal retention. Correlate for constipation.
--- NOTE | 2022-07-03 10:49 | P.PN ---
Subjective Patient is seen for follow-up for hyponatremia. Currently maintained on tube feedings Sodium has decreased to 137 today Receiving 200 ML of free water down the feeding tube every 4 hours. D5W decreased to 40 mL per hour this morning next Patient is more awake today. Son is present at bedside. Objective - Vital Signs Vital signs: Vital Signs Temp 98.2 F 07/03/22 08:00 Pulse 96 07/03/22 08:00 Resp 20 07/03/22 08:00 BP 132/62 07/03/22 08:00 Pulse Ox 100 07/03/22 08:00 FiO2 30 06/26/22 16:28 Intake & Output 07/02/22 07/03/22 07/03/22 18:59 06:59 18:59 Intake Total 110.833 354.5 Output Total 550 100 Balance -439.167 254.5 Intake: Intake, IV Titration 110.833 114.5 Amount Diltiazem 125 mg In 110.833 114.5 Sodium Chloride 0.9% 100 ml @ 10 MG/HR 10 mls/hr IV .[id number] [facility] Rx#: [id number] Tube Feeding 240 Output: Urine 550 100 Uretheral (Edward) 100 Other: Voiding Method Indwelling Catheter Indwelling Catheter - Exam Patient is awake but does not communicate Examination of the heart S1 and S2 Examination of the lungs decreased breath sounds at the bases Abdomen is soft nontender Examination lower extremities shows trace edema - Labs CBC & Chem 7: 07/03/22 06:01 07/03/22 06:01 Labs: Abnormal Lab Results - Last 24 Hours (Table) 07/02/22 07/02/22 07/02/22 Range/Units 11:57 11:57 16:43 WBC 11.5 H (3.8-10.6) k/uL RBC 2.54 L (4.30-5.90) m/uL Hgb 8.0 L (13.0-17.5) gm/dL Hct 24.8 L (39.0-53.0) % Neutrophils # 10.2 H (1.3-7.7) k/uL Lymphocytes # 0.8 L (1.0-4.8) k/uL Chloride 110 H (98-107) mmol/L BUN 53 H (9-20) mg/dL Glucose 220 H (74-99) mg/dL POC Glucose (mg/dL) 231 H (70-110) mg/dL Calcium 7.2 L (8.4-10.2) mg/dL Alkaline Phosphatase (38-126) U/L Total Protein (6.3-8.2) g/dL Albumin (3.5-5.0) g/dL 07/02/22 07/02/22 07/03/22 Range/Units 18:42 20:30 06:01 WBC 12.6 H (3.8-10.6) k/uL RBC 2.53 L (4.30-5.90) m/uL Hgb 8.0 L (13.0-17.5) gm/dL Hct 25.0 L (39.0-53.0) % Neutrophils # 11.4 H (1.3-7.7) k/uL Lymphocytes # 0.6 L (1.0-4.8) k/uL Chloride 109 H (98-107) mmol/L BUN 52 H (9-20) mg/dL Glucose 192 H (74-99) mg/dL POC Glucose (mg/dL) 223 H (70-110) mg/dL Calcium 7.5 L (8.4-10.2) mg/dL Alkaline Phosphatase (38-126) U/L Total Protein (6.3-8.2) g/dL Albumin (3.5-5.0) g/dL 07/03/22 07/03/22 Range/Units 06:01 06:04 WBC (3.8-10.6) k/uL RBC (4.30-5.90) m/uL Hgb (13.0-17.5) gm/dL Hct (39.0-53.0) % Neutrophils # (1.3-7.7) k/uL Lymphocytes # (1.0-4.8) k/uL Chloride (98-107) mmol/L BUN 52 H (9-20) mg/dL Glucose 231 H (74-99) mg/dL POC Glucose (mg/dL) 252 H (70-110) mg/dL Calcium 7.6 L (8.4-10.2) mg/dL Alkaline Phosphatase 258 H (38-126) U/L Total Protein 5.0 L (6.3-8.2) g/dL Albumin 2.5 L (3.5-5.0) g/dL Microbiology - Last 24 Hours (Table) 07/01/22 11:46 Blood Culture - Preliminary Blood No Growth after 24 hours Assessment and Plan Assessment: 1. Hyponatremia from poor solute intake. Hypervolemic. Resolved. Lasix has been decreased. Also received Samsca this admission. Sodium level had increased to 148 and patient was started on D5W which will be discontinued as sodium is down to 137 today Urine osmolality 554. TSH normal. 2. Acute hypoxic respiratory failure secondary to volume overload. Improved. 3. Prostate cancer with metastatic disease. 4. Benign hypertension. Stable. 5. Diabetes mellitus. 6. Parkinson's disease. Neurology following. 7. Urinary retention. Edward catheter placed. On Flomax. No hydronephrosis noted on kidney ultrasound. Left kidney not visualized. 8. Hypokalemia from poor intake and diuresis. Replaced. 10. A. fib with RVR maintained on Cardizem drip. 11. Hypocalcemia. Ionized calcium low. Due to diuresis. Vitamin D normal. Replaced. Plan: Hold free water flushes DC D5W Repeat sodium this afternoon and resume free water flushes depending on the sodium.
--- NOTE | 2022-07-03 11:39 | P.PN ---
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 Initially found to have severe hypervolemic hyponatremia likely in setting of CHF exacerbation. Patient was evaluated by cardiology and nephrology. Sodium improved with diuretics. Altered mental status likely secondary to severe hyponatremia versus worsening Parkinson's. Neurology was consulted. Amantadine was discontinued as it can potentially cause urinary retention and behavioral changes/confusion. Sinemet was continued. Patient had swallow evaluation, failed. Modified barium swallow also failed. Had multiple discussions with son and daughter in regards to poor overall prognosis. Son is adamant about giving his father a "fighting chance". After much back and forth between son and daughter, they agreed on getting a PEG tube for the father. Patient had PEG tube placed, tolerating feeds well. Oncology and palliative c are was also consulted, and had similar views on his overall prognosis. Subjective: Patient seen and examined at bedside. No acute events overnight. Patient mental status has improved slightly. He is not able to verbalize any pain or shortness of breath. Per nurse, urine output has dropped. NO recent BM. Pertinent positives and negatives as discussed above, a complete review of systems was performed and all other systems are negative. Vitals Signs Reviewed. General: nontoxic, no distress, appears at stated age, cachectic Derm: warm, dry, sacral decubitus wounds present on admission (reported by nurse) Head: atraumatic, normocephalic, symmetric Eyes: EOMI, no lid lag, anicteric sclera Mouth: no lip lesion, mucus membranes moist Cardiovascular: S1S2 reg, no murmur Lungs: CTA bilateral, no rhonchi, no rales , no accessory muscle use, supplemental oxygen Abdominal: soft, slight tender to palpation, no guarding, no appreciable organomegaly Ext: no edema, no contractures Neuro: CN II-XI grossly intact, no focal neuro deficits, resting tremor Psych: Awake, not oriented Assessment and Plan: Constipation - miralax and senna Hypernatremia -resolving -nephrology following -fluids discontinued -free water flushes through PEG tube Febrile - resolved -Blood cultures, urine culture pending -Chest x-ray improved compared to prior -Wound care consulted for sacral decubitus ulcers present on admission -Tylenol as needed for fever Altered mental status, possibly secondary to severe hyponatremia versus worsening Parkinson's Severe protein calorie malnutrition -Neurology consulted -Sinemet through her PEG tube -holding amantadine -EEG showed no focal slowing, epileptiform discharge or seizure Severe hyponatremia, hypervolemic -resolved Acute on chronic systolic Heart Failure Exacerbation, EF is mildly to moderately reduced per Echo on 05/26/22 -now on oral Lasix per nephrology -Nephrology consult, received tolvaptan -Monitor BMP -Cardiology consult Wide complex tachycardia - prior EKG, possible AFib -now on PO cardizem stage IV prostate cancer -Oncology consult -Also seen by palliative -Prognosis remains poor Chronic conditions: Type II DM, coronary artery disease -Continue with home meds -Insulin sliding scale with blood glucose monitoring DVT prophylaxis -lovenox CODE STATUS: Full Code Anticipated discharge date: 3-4 days, depending on if able to get to goal feeds Anticipated discharge place: Home with home care, patient's family is declining rehab Objective - Vital Signs Vital signs: Vital Signs Temp 98.2 F 07/03/22 08:00 Pulse 96 07/03/22 08:00 Resp 20 07/03/22 08:00 BP 132/62 07/03/22 08:00 Pulse Ox 100 07/03/22 08:00 FiO2 30 06/26/22 16:28 Intake & Output 07/02/22 07/03/22 07/03/22 18:59 06:59 18:59 Intake Total 110.833 354.5 Output Total 550 100 250 Balance -439.167 254.5 -250 Intake: Intake, IV Titration 110.833 114.5 Amount Diltiazem 125 mg In 110.833 114.5 Sodium Chloride 0.9% 100 ml @ 10 MG/HR 10 mls/hr IV .[id number] [facility] Rx#: [id number] Tube Feeding 240 Output: Urine 550 100 250 Uretheral (Edward) 100 Other: Voiding Method Indwelling Catheter Indwelling Catheter - Labs CBC & Chem 7: 07/03/22 06:01 07/03/22 06:01 Labs: Abnormal Lab Results - Last 24 Hours (Table) 07/02/22 07/02/22 07/02/22 Range/Units 11:57 11:57 16:43 WBC 11.5 H (3.8-10.6) k/uL RBC 2.54 L (4.30-5.90) m/uL Hgb 8.0 L (13.0-17.5) gm/dL Hct 24.8 L (39.0-53.0) % Neutrophils # 10.2 H (1.3-7.7) k/uL Lymphocytes # 0.8 L (1.0-4.8) k/uL Chloride 110 H (98-107) mmol/L BUN 53 H (9-20) mg/dL Glucose 220 H (74-99) mg/dL POC Glucose (mg/dL) 231 H (70-110) mg/dL Calcium 7.2 L (8.4-10.2) mg/dL Alkaline Phosphatase (38-126) U/L Total Protein (6.3-8.2) g/dL Albumin (3.5-5.0) g/dL 07/02/22 07/02/22 07/03/22 Range/Units 18:42 20:30 06:01 WBC 12.6 H (3.8-10.6) k/uL RBC 2.53 L (4.30-5.90) m/uL Hgb 8.0 L (13.0-17.5) gm/dL Hct 25.0 L (39.0-53.0) % Neutrophils # 11.4 H (1.3-7.7) k/uL Lymphocytes # 0.6 L (1.0-4.8) k/uL Chloride 109 H (98-107) mmol/L BUN 52 H (9-20) mg/dL Glucose 192 H (74-99) mg/dL POC Glucose (mg/dL) 223 H (70-110) mg/dL Calcium 7.5 L (8.4-10.2) mg/dL Alkaline Phosphatase (38-126) U/L Total Protein (6.3-8.2) g/dL Albumin (3.5-5.0) g/dL 07/03/22 07/03/22 Range/Units 06:01 06:04 WBC (3.8-10.6) k/uL RBC (4.30-5.90) m/uL Hgb (13.0-17.5) gm/dL Hct (39.0-53.0) % Neutrophils # (1.3-7.7) k/uL Lymphocytes # (1.0-4.8) k/uL Chloride (98-107) mmol/L BUN 52 H (9-20) mg/dL Glucose 231 H (74-99) mg/dL POC Glucose (mg/dL) 252 H (70-110) mg/dL Calcium 7.6 L (8.4-10.2) mg/dL Alkaline Phosphatase 258 H (38-126) U/L Total Protein 5.0 L (6.3-8.2) g/dL Albumin 2.5 L (3.5-5.0) g/dL Microbiology - Last 24 Hours (Table) 07/01/22 11:46 Blood Culture - Preliminary Blood No Growth after 24 hours
[2022-07-03 11:44] LABS: Glucose,Whole Blood 222 mg/dL (70-110)
--- NOTE | 2022-07-03 12:07 | P.PN ---
Subjective Progress Note Date: 07/03/22 The patient is seen at bedside and is accompanied by his so who states that patient has be lethargic and non-responsive since at least past 12 hours. Objective - Vital Signs Vital signs: Vital Signs Temp 98.2 F 07/03/22 08:00 Pulse 96 07/03/22 08:00 Resp 20 07/03/22 08:00 BP 132/62 07/03/22 08:00 Pulse Ox 100 07/03/22 08:00 FiO2 30 06/26/22 16:28 Intake & Output 07/02/22 07/03/22 07/03/22 18:59 06:59 18:59 Intake Total 110.833 354.5 Output Total 550 100 250 Balance -439.167 254.5 -250 Intake: Intake, IV Titration 110.833 114.5 Amount Diltiazem 125 mg In 110.833 114.5 Sodium Chloride 0.9% 100 ml @ 10 MG/HR 10 mls/hr IV .[id number] [facility] Rx#: [id number] Tube Feeding 240 Output: Urine 550 100 250 Uretheral (Edward) 100 Other: Voiding Method Indwelling Catheter Indwelling Catheter - Exam GENERAL: The patient is lying in bed and is not in acute distress. Looks very l ethargic. NEUROLOGICAL: Limited because of his condition. Higher mental function: The patient is drowsy but responsive to verbal stimuli. He is oriented to self. He was able to follow simple commands (thumbs up and sticking tongue out). Cranial nerves: Pupils are round, equal and reactive to light. NO facial weakness. Very hypophonic. Motor: Is able to lift upper and lowers above gravity. He has some resting tremors of bilateral uppers (but better today) and mouth. - Labs CBC & Chem 7: 07/03/22 06:01 07/03/22 06:01 Labs: Abnormal Lab Results - Last 24 Hours (Table) 07/02/22 07/02/22 07/02/22 Range/Units 11:57 11:57 16:43 WBC 11.5 H (3.8-10.6) k/uL RBC 2.54 L (4.30-5.90) m/uL Hgb 8.0 L (13.0-17.5) gm/dL Hct 24.8 L (39.0-53.0) % Neutrophils # 10.2 H (1.3-7.7) k/uL Lymphocytes # 0.8 L (1.0-4.8) k/uL Chloride 110 H (98-107) mmol/L BUN 53 H (9-20) mg/dL Glucose 220 H (74-99) mg/dL POC Glucose (mg/dL) 231 H (70-110) mg/dL Calcium 7.2 L (8.4-10.2) mg/dL Alkaline Phosphatase (38-126) U/L Total Protein (6.3-8.2) g/dL Albumin (3.5-5.0) g/dL 07/02/22 07/02/22 07/03/22 Range/Units 18:42 20:30 06:01 WBC 12.6 H (3.8-10.6) k/uL RBC 2.53 L (4.30-5.90) m/uL Hgb 8.0 L (13.0-17.5) gm/dL Hct 25.0 L (39.0-53.0) % Neutrophils # 11.4 H (1.3-7.7) k/uL Lymphocytes # 0.6 L (1.0-4.8) k/uL Chloride 109 H (98-107) mmol/L BUN 52 H (9-20) mg/dL Glucose 192 H (74-99) mg/dL POC Glucose (mg/dL) 223 H (70-110) mg/dL Calcium 7.5 L (8.4-10.2) mg/dL Alkaline Phosphatase (38-126) U/L Total Protein (6.3-8.2) g/dL Albumin (3.5-5.0) g/dL 07/03/22 07/03/22 07/03/22 Range/Units 06:01 06:04 11:43 WBC (3.8-10.6) k/uL RBC (4.30-5.90) m/uL Hgb (13.0-17.5) gm/dL Hct (39.0-53.0) % Neutrophils # (1.3-7.7) k/uL Lymphocytes # (1.0-4.8) k/uL Chloride (98-107) mmol/L BUN 52 H (9-20) mg/dL Glucose 231 H (74-99) mg/dL POC Glucose (mg/dL) 252 H 222 H (70-110) mg/dL Calcium 7.6 L (8.4-10.2) mg/dL Alkaline Phosphatase 258 H (38-126) U/L Total Protein 5.0 L (6.3-8.2) g/dL Albumin 2.5 L (3.5-5.0) g/dL Microbiology - Last 24 Hours (Table) 07/01/22 11:46 Blood Culture - Preliminary Blood No Growth after 24 hours Assessment and Plan Assessment: * Altered mental status, likely due to toxic metabolic encephalopathy and not receiving his medications (Parkinson's). Reasons multifactorial as mentioned below * Electrolye derangement (Hyponatremia, hypocalcemia)--improving * Dysphagia s/p PEG tube * Acute pulmonary edema * Metastatic prostate cancer with bony metastasis * CAD * Diabetes * Hyperlipidemia * Hypertension * Parkinson's disease Plan: * Dr. Beckett discontinued amantadine during this hospital visit. It can cause urinary retention and behavioral changes/confusions. * His home Sinemet 50-200mg ER 1 tab tid cannot be crushed so therefore started him on immediate release of same dose for now. I increased from 50-200mg 1 tab tid to qid (,12,17,). * Routine EEG on 06/30/22: Is abnormal. The background slowing is suggestive of moderate encephalopathy. Otherwise, there is no focal slowing, epileptiform discharges or seizure on the EEG. * Repeat CT head 07/01/22: No acute intracranial process. Nonspecific white matter changes, likely secondary to chronic small vessel ischemic disease. O sseous metastatic disease. I personally reviewed the CT of the head and there is no acute subacute ischemia and there is no focal or hemorrhage. There is no mass effect. * Speech therapy is on board. evaluation. * Treatment of other medical conditions as per IM and other specialties. * Recommend patient to follow-up with his neurologist (Dr. Luz) as outpatient within 1-2 weeks. * Prognosis is poor based upon multiple comorbidities conditions including terminal prostate cancer. The plan is discussed with the patient's son (who is at bedside) and primary team. Dr. Beckett will start neurology service tomorrow A.M. Time with Patient: Less than 30
[2022-07-03] MEDS: SENNOSIDES 8.6 MG TAB PO SCH ×2 (12:50→21:15)
[2022-07-03] MEDS: polyethylene glycoL 3350 17 GM POWD.PACK PO SCH (12:51)
--- NOTE | 2022-07-03 13:47 | P.PN ---
Progress Note - Text Progress Note Date: 07/03/22 PEG site is clean. Patient receiving tube feeds.
--- NOTE | 2022-07-03 14:24 | P.PN ---
Progress Note - Text Progress Note Date: 07/03/22 This is an 87-year-old gentleman with extensive medical history consistent of metastatic prostate cancer as well as coronary artery disease as well as cardiomyopathy as well as multiple comorbid conditions was requested to see the patient was admitted with a change in mental status. We saw the patient for cardiac arrhythmia into of SVT. Also patient was nothing by mouth because of his mentation we started the patient on Cardizem IV. This subsequently we signed off on the patient. Requested to see the patient today because he does have a feeding tube. I'm going to stop the Cardizem IV and start the patient on Cardizem by mouth 60 mg 3 times a day. We will follow-up with the patient as needed.
[2022-07-03 16:44] LABS: Glucose,Whole Blood 197 mg/dL (70-110)
[2022-07-03 17:13] LABS: African American GFR (CKD) >90 (>60 ml/min/1.73 sqM); Anion Gap 7 mmol/L; Blood Urea Nitrogen 51 mg/dL (9-20); Calcium 7.4 mg/dL (8.4-10.2); Carbon Dioxide 25 mmol/L (22-30); Chloride 104 mmol/L (98-107); Glucose 164 mg/dL (74-99); Non-African American GFR(CKD) 78 (>60 ml/min/1.73 sqM); Potassium 4.5 mmol/L (3.5-5.1); Sodium 136 mmol/L (137-145)
[2022-07-03] MEDS: ACETAMINOPHEN TAB 325 MG TAB PO PRN (18:21)
[2022-07-03 20:44] LABS: Glucose,Whole Blood 261 mg/dL (70-110)
[2022-07-03] MEDS: NON FORMULARY DRUG (Enzalutamide [Xtandi] 40 MG Capsule) PO SCH (21:14)
[2022-07-03] MEDS ORDERED: DILTIAZEM ORAL 30 MG TAB PO SCH (22:00)
[2022-07-04] MEDS: DILTIAZEM 125 MG in SODIUM CHLORIDE 0.9% 100 ML IV SCH ×2 (03:23→17:42)
[2022-07-04] MEDS: MORPHINE SULFATE 2 MG/ML SYRINGE IVP PRN (03:24)
[2022-07-04 06:15] LABS: Glucose,Whole Blood 296 mg/dL (70-110)
[2022-07-04] MEDS: CARBIDOPA-LEVODOPA 25-100 MG 1 EACH TAB PO SCH ×4 (06:47→22:28)
[2022-07-04] MEDS: INSULIN ASPART (NovoLOG) 100 UNIT/ML VIAL SQ SCH ×4 (06:47→22:58)
--- NOTE | 2022-07-04 08:44 | XR ---
EXAMINATION TYPE: XR chest 1V portable DATE OF EXAM: 07/04/2022 Comparison: 07/01/2022 Clinical History: 87 year-old male shortness of breath Findings: Heart normal size. Atherosclerotic arch calcifications. Worsening retrocardiac and left basilar opaci ty. Some developing patchy right basilar opacity as well. Diffuse osteosclerosis throughout the visua lized bony skeleton. Impression: Worsening left greater than right bibasilar airspace disease. Correlate for infectious or aspiration pneumonitis. Redemonstrated diffuse sclerotic osseous metastases.
[2022-07-04 08:57] LABS: Glucose,Whole Blood 259 mg/dL (70-110)
[2022-07-04] MEDS: FUROSEMIDE 20 MG TAB PO SCH (09:06)
[2022-07-04] MEDS: GABAPENTIN 100 MG CAP PO SCH ×3 (09:07→22:29)
[2022-07-04] MEDS: SENNOSIDES 8.6 MG TAB PO SCH ×2 (09:07→22:29)
[2022-07-04] MEDS: TAMSULOSIN 0.4 MG CAP.ER.24H PO SCH (09:07)
[2022-07-04 09:08] LABS: Basophils % (A) 0 %; Eosinophils % (A) 0 %; HCT 26.1 % (39.0-53.0); HGB 8.3 gm/dL (13.0-17.5); Hypochromasia Slight; Lymphocytes # (A) 0.3 k/uL (1.0-4.8); Lymphocytes % (A) 5 %; MCH 30.9 pg (25.0-35.0); MCHC 31.8 g/dL (31.0-37.0); MCV 96.9 fL (80.0-100.0); Mean Platelet Volume 9.2; Monocytes # (A) 0.2 k/uL (0-1.0); Monocytes % (A) 3 %; Neutrophils # (A) 6.9 k/uL (1.3-7.7); Neutrophils % (A) 92 %; Platelet Count 174 k/uL (150-450); RBC 2.69 m/uL (4.30-5.90); RDW 14.6 % (11.5-15.5); WBC 7.5 k/uL (3.8-10.6)
[2022-07-04] MEDS: ASPIRIN 81 MG PO SCH (09:08)
[2022-07-04] MEDS: polyethylene glycoL 3350 17 GM POWD.PACK PO SCH (09:08)
[2022-07-04] MEDS: ENOXAPARIN 40 MG/0.4 ML SYRINGE SQ SCH (09:08)
[2022-07-04 09:09] LABS: Phosphorus 3.2 mg/dL (2.5-4.5); Potassium 5.1 mmol/L (3.5-5.1)
[2022-07-04 09:10] LABS: Calcium 6.9 mg/dL (8.4-10.2); Magnesium 2.2 mg/dL (1.6-2.3)
--- NOTE | 2022-07-04 09:51 | P.PN ---
Subjective Patient is seen for follow-up for hyponatremia. Currently maintained on tube feedings D5W was discontinued yesterday and free water flushes are also on hold as serum sodium was down to 136. No significant complaints today. Patient is resting well. Objective - Vital Signs Vital signs: Vital Signs Temp 98.4 F 07/04/22 09:00 Pulse 99 07/04/22 09:00 Resp 27 H 07/04/22 09:00 BP 125/60 07/04/22 09:00 Pulse Ox 91 L 07/04/22 09:00 FiO2 30 06/26/22 16:28 Intake & Output 07/03/22 07/04/22 07/04/22 18:59 06:59 18:59 Intake Total 70 90.333 Output Total 350 450 Balance -280 -359.667 Intake: Intake, IV Titration 90.333 Amount Diltiazem 125 mg In 90.333 Sodium Chloride 0.9% 100 ml @ 10 MG/HR 10 mls/hr IV .[id number] [facility] Rx#: [id number] Tube Feeding 70 Output: Urine 350 450 Uretheral (Edward) 100 Other: Voiding Method Indwelling Catheter Indwelling Catheter - Exam Patient is sleeping and does not communicate Examination of the heart S1 and S2 Examination of the lungs decreased breath sounds at the bases Abdomen is soft nontender Examination lower extremities shows trace edema - Labs CBC & Chem 7: 07/04/22 08:00 07/04/22 08:00 Labs: Abnormal Lab Results - Last 24 Hours (Table) 07/02/22 07/03/22 07/03/22 Range/Units 11:46 11:43 15:56 RBC (4.30-5.90) m/uL Hgb (13.0-17.5) gm/dL Hct (39.0-53.0) % Lymphocytes # (1.0-4.8) k/uL Sodium 136 L (137-145) mmol/L BUN 51 H (9-20) mg/dL Glucose 164 H (74-99) mg/dL POC Glucose (mg/dL) 259 H 222 H (70-110) mg/dL Calcium 7.4 L (8.4-10.2) mg/dL 07/03/22 07/03/22 07/04/22 Range/Units 16:42 20:42 06:14 RBC (4.30-5.90) m/uL Hgb (13.0-17.5) gm/dL Hct (39.0-53.0) % Lymphocytes # (1.0-4.8) k/uL Sodium (137-145) mmol/L BUN (9-20) mg/dL Glucose (74-99) mg/dL POC Glucose (mg/dL) 197 H 261 H 296 H (70-110) mg/dL Calcium (8.4-10.2) mg/dL 07/04/22 07/04/22 Range/Units 08:00 08:00 RBC 2.69 L (4.30-5.90) m/uL Hgb 8.3 L (13.0-17.5) gm/dL Hct 26.1 L (39.0-53.0) % Lymphocytes # 0.3 L (1.0-4.8) k/uL Sodium (137-145) mmol/L BUN 59 H (9-20) mg/dL Glucose 268 H (74-99) mg/dL POC Glucose (mg/dL) (70-110) mg/dL Calcium 6.9 L (8.4-10.2) mg/dL Microbiology - Last 24 Hours (Table) 07/01/22 11:46 Blood Culture - Preliminary Blood No Growth after 48 hours Assessment and Plan Assessment: 1. Hyponatremia from poor solute intake. Hypervolemic. Resolved. Lasix has been decreased. Also received Samsca this admission. Sodium level had increased to 148 and patient was started on D5W which was discontinued yesterday and free water flushes also on hold. 2. Acute hypoxic respiratory failure secondary to volume overload. Improved. 3. Prostate cancer with metastatic disease. 4. Benign hypertension. Stable. 5. Diabetes mellitus. 6. Parkinson's disease. Neurology following. 7. Urinary retention. Edward catheter placed. On Flomax. No hydronephrosis noted on kidney ultrasound. Left kidney not visualized. 8. Hypokalemia from poor intake and diuresis. Replaced. 10. A. fib with RVR maintained on Cardizem drip. 11. Hypocalcemia. Ionized calcium low. Due to diuresis. Vitamin D normal. Replaced. Plan: Hold free water flushes Recheck sodium this evening
--- NOTE | 2022-07-04 10:32 | P.PN ---
Subjective Progress Note Date: 07/04/22 Principal diagnosis: altered mental status Hospital Course: 87-year-old male with history of stage IV prostate cancer with bone metastases, Parkinson's disease, type 2 diabetes, hypertension, CAD status post PCI, ischemic cardiomyopathy with an EF of 40-45% stented with altered mental status and failure to thrive. Initially found to have severe hypervolemic hyponatremia likely in setting of CHF exacerbation. Patient was evaluated by cardiology and nephrology. Sodium improved with diuretics. Altered mental status likely secondary to severe hyponatremia versus worsening Parkinson's. Neurology was consulted. Amantadine was discontinued as it can potentially cause urinary retention and behavioral changes/confusion. Sinemet was continued. Patient had swallow evaluation, failed. Modified barium swallow also failed. Had multiple discussions with son and daughter in regards to poor overall prognosis. Son is adamant about giving his father a "fighting chance". After much back and forth between son and daughter, they agreed on getting a PEG tube for the father. Patient had PEG tube placed, tolerating feeds well. Oncology and palliative care was also consulted, and had similar views on his overall prognosis. Patient now having fevers, CXR concerning for aspiration. Subjective: Patient seen and examined at bedside. Patient was tachycardic yesterday, not rate controlled on PO cardizem. Was switched back to cardizem gtt. Patient mental status remains poor. He is not able to verbalize any pain or shortness of breath. Had 1 small smear BM. Pertinent positives and negatives as discussed above, a complete review of systems was performed and all other systems are negative. Vitals Signs Reviewed. General: nontoxic, no distress, appears at stated age, cachectic Derm: warm, dry, sacral decubitus wounds present on admission (reported by nurse) Head: atraumatic, normocephalic, symmetric Eyes: EOMI, no lid lag, anicteric sclera Mouth: no lip lesion, mucus membranes moist Cardiovascular: S1S2 reg, no murmur Lungs: CTA bilateral, no rhonchi, no rales , no accessory muscle use, supplemental oxygen Abdominal: soft, slight tender to palpation, no guarding, no appreciable organomegaly Ext: no edema, no contractures Neuro: CN II-XI grossly intact, no focal neuro deficits, resting tremor Psych: Awake, not oriented Assessment and Plan: Acute metabolic encepholopathy Parkinson's disease -continued sinemet, holding amantadine -EEG, no seizures -CT - osseous metastatic disease - likely metabolic Febrile -Blood cultures, urine culture pending -Chest x-ray possible aspiration pneumonitis -Wound care consulted for sacral decubitus ulcers present on admission -Tylenol as needed for fever -ceftriaxone and azithromycin Hypernatremia -resolved Hypervolemic hyponatremia present on admission, resolved Acute on chronic systolic Heart Failure Exacerbation, EF is mildly to moderately reduced per Echo on 05/26/22 -now on oral Lasix per nephrology -Nephrology consult, received tolvaptan once Severe protein calorie malnutrition -PEG feeds with free Wide complex tachycardia - was on cardizem gtt, transitioned to PO - back on gtt due to worsening tachycardia - cardiology consult stage IV prostate cancer -Oncology consult -Also seen by palliative -Prognosis remains poor Chronic conditions: Type II DM, coronary artery disease -Continue with home meds -Insulin sliding scale with blood glucose monitoring DVT prophylaxis -lovenox CODE STATUS: Full Code Anticipated discharge date: 3-4 days, depending on if able to get to goal feeds Anticipated discharge place: Home with home care, patient's family is declining rehab Objective - Vital Signs Vital signs: Vital Signs Temp 98.4 F 07/04/22 09:00 Pulse 99 07/04/22 09:00 Resp 27 H 07/04/22 09:00 BP 125/60 07/04/22 09:00 Pulse Ox 91 L 07/04/22 09:00 FiO2 30 06/26/22 16:28 Intake & Output 07/03/22 07/04/22 07/04/22 18:59 06:59 18:59 Intake Total 70 90.333 Output Total 350 450 Balance -280 -359.667 Intake: Intake, IV Titration 90.333 Amount Diltiazem 125 mg In 90.333 Sodium Chloride 0.9% 100 ml @ 10 MG/HR 10 mls/hr IV .[id number] [facility] Rx#: [id number] Tube Feeding 70 Output: Urine 350 450 Uretheral (Edward) 100 Other: Voiding Method Indwelling Catheter Indwelling Catheter - Labs CBC & Chem 7: 07/04/22 08:00 07/04/22 08:00 Labs: Abnormal Lab Results - Last 24 Hours (Table) 07/02/22 07/03/22 07/03/22 Range/Units 11:46 11:43 15:56 RBC (4.30-5.90) m/uL Hgb (13.0-17.5) gm/dL Hct (39.0-53.0) % Lymphocytes # (1.0-4.8) k/uL Sodium 136 L (137-145) mmol/L BUN 51 H (9-20) mg/dL Glucose 164 H (74-99) mg/dL POC Glucose (mg/dL) 259 H 222 H (70-110) mg/dL Calcium 7.4 L (8.4-10.2) mg/dL 07/03/22 07/03/22 07/04/22 Range/Units 16:42 20:42 06:14 RBC (4.30-5.90) m/uL Hgb (13.0-17.5) gm/dL Hct (39.0-53.0) % Lymphocytes # (1.0-4.8) k/uL Sodium (137-145) mmol/L BUN (9-20) mg/dL Glucose (74-99) mg/dL POC Glucose (mg/dL) 197 H 261 H 296 H (70-110) mg/dL Calcium (8.4-10.2) mg/dL 07/04/22 07/04/22 Range/Units 08:00 08:00 RBC 2.69 L (4.30-5.90) m/uL Hgb 8.3 L (13.0-17.5) gm/dL Hct 26.1 L (39.0-53.0) % Lymphocytes # 0.3 L (1.0-4.8) k/uL Sodium (137-145) mmol/L BUN 59 H (9-20) mg/dL Glucose 268 H (74-99) mg/dL POC Glucose (mg/dL) (70-110) mg/dL Calcium 6.9 L (8.4-10.2) mg/dL Microbiology - Last 24 Hours (Table) 07/01/22 11:46 Blood Culture - Preliminary Blood No Growth after 48 hours
[2022-07-04] MEDS ORDERED: AZITHROMYCIN 500 MG in SODIUM CHLORIDE 0.9% 250 ML IVPB SCH (11:00)
--- NOTE | 2022-07-04 11:10 | P.PN ---
Subjective Progress Note Date: 07/04/22 CHIEF COMPLAINT: Malnutrition HISTORY OF PRESENT ILLNESS: Patient is status post PEG tube placement on . Patient is tolerating tube feeds. Patient had chest x-ray completed showing worsening left greater than right bibasilar airspace disease. Correlate for infectious or aspiration pneumonitis. We demonstrated diffuse sclerotic osseous metastasis. Patient having low-grade fevers. Respiratory rate slightly elevated. WBC is 7.5 one a 0.3 Patient seen and examined with Dr. holland PHYSICAL EXAM: VITAL SIGNS: Reviewed. GENERAL: no acute distress. ABDOMEN: Soft. Nondistended. Nontender. PEG tube site clean dry and intact ASSESSMENT: 1. Moderate protein calorie malnutrition status post PEG tube placement 2. Failed swallow evaluation 3. Dysphagia 4. 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 Parkinson's disease PLAN: -Continue tube feeds -Continue supportive care -keep head of bed elevated Physician Tactical Debriefer Officer note has been reviewed by physician. Signing provider agrees with the documented findings, assessment, and plan of care. Objective - Vital Signs Vital signs: Vital Signs Temp 98.4 F 07/04/22 09:00 Pulse 99 07/04/22 09:00 Resp 27 H 07/04/22 09:00 BP 125/60 07/04/22 09:00 Pulse Ox 91 L 07/04/22 09:00 FiO2 30 06/26/22 16:28 Intake & Output 07/03/22 07/04/22 07/04/22 18:59 06:59 18:59 Intake Total 70 90.333 Output Total 350 450 Balance -280 -359.667 Intake: Intake, IV Titration 90.333 Amount Diltiazem 125 mg In 90.333 Sodium Chloride 0.9% 100 ml @ 10 MG/HR 10 mls/hr IV .[id number] [facility] Rx#: [id number] Tube Feeding 70 Output: Urine 350 450 Uretheral (Edward) 100 Other: Voiding Method Indwelling Catheter Indwelling Catheter - Labs CBC & Chem 7: 07/04/22 08:00 07/04/22 08:00 Labs: Abnormal Lab Results - Last 24 Hours (Table) 07/02/22 07/03/22 07/03/22 Range/Units 11:46 11:43 15:56 RBC (4.30-5.90) m/uL Hgb (13.0-17.5) gm/dL Hct (39.0-53.0) % Lymphocytes # (1.0-4.8) k/uL Sodium 136 L (137-145) mmol/L BUN 51 H (9-20) mg/dL Glucose 164 H (74-99) mg/dL POC Glucose (mg/dL) 259 H 222 H (70-110) mg/dL Calcium 7.4 L (8.4-10.2) mg/dL 07/03/22 07/03/22 07/04/22 Range/Units 16:42 20:42 06:14 RBC (4.30-5.90) m/uL Hgb (13.0-17.5) gm/dL Hct (39.0-53.0) % Lymphocytes # (1.0-4.8) k/uL Sodium (137-145) mmol/L BUN (9-20) mg/dL Glucose (74-99) mg/dL POC Glucose (mg/dL) 197 H 261 H 296 H (70-110) mg/dL Calcium (8.4-10.2) mg/dL 07/04/22 07/04/22 Range/Units 08:00 08:00 RBC 2.69 L (4.30-5.90) m/uL Hgb 8.3 L (13.0-17.5) gm/dL Hct 26.1 L (39.0-53.0) % Lymphocytes # 0.3 L (1.0-4.8) k/uL Sodium (137-145) mmol/L BUN 59 H (9-20) mg/dL Glucose 268 H (74-99) mg/dL POC Glucose (mg/dL) (70-110) mg/dL Calcium 6.9 L (8.4-10.2) mg/dL Microbiology - Last 24 Hours (Table) 07/01/22 11:46 Blood Culture - Preliminary Blood No Growth after 48 hours
[2022-07-04 11:35] LABS: Glucose,Whole Blood 351 mg/dL (70-110)
[2022-07-04] MEDS: ACETAMINOPHEN TAB 325 MG TAB PO PRN ×2 (12:38→17:41)
[2022-07-04 12:52] LABS: Appearance,Urine Cloudy (Clear); Bilirubin,Urine Negative (Negative); Blood,Urine Moderate (Negative); Color,Urine Yellow; Glucose,Urine (UA) Trace (Negative); Ketones,Urine Negative (Negative); Leukocyte Esterase,Urine Negative (Negative); Mucus,Urine Rare /hpf; Nitrite,Urine Negative (Negative); PH, Urine 6.5 (5.0-8.0); Protein,Urine 2+ (Negative); RBC,Urine 1 /hpf (0-5); Squamous Epithelial Cell,Urine 1 /hpf (0-4); WBC,Urine 3 /hpf (0-5)
--- NOTE | 2022-07-04 14:27 | P.PN ---
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 He was brought into the emergency room on 06/24/22 by his son for altered mental status and failure to thrive. Per the son, the patient who has been on Sinemet for several years recently had it discontinued by Dr. Luz and started on amantadine. The son reports that ever since the medication change, his father has not been quite himself. He reports that the patient has now developed worsening tremors and has been increasingly confused and refusing to eat or drink much. At baseline, he reports that his father is oriented 3 and was able to use his walker to ambulate throughout the house and get himself out of bed and seat himself on the toilet. He reports that since the medication change, the patient is also suffered several falls leading to the bruising over his arms. The patient was not answering any questions appropriately. Head/cervical spine CT in the emergency room was consistent with metastatic osteoblastic disease. Pelvis x- ray also unremarkable aside from stable metastatic disease. Chest x-ray revea led pulmonary edema and pleural fluid, possible CHF. Right forearm x-ray was unremarkable. EKG reveals sinus rhythm with left axis deviation a 69 bpm with a left bundle branch block. Initially found to have severe hypervolemic hyponatremia likely in setting of CHF exacerbation. Patient was evaluated by cardiology and nephrology. Sodium improved with diuretics. Altered mental status likely secondary to severe hyponatremia versus worsening Parkinson's. Neurology is allyson following.. Amantadine was discontinued as it can potentially cause urinary retention and behavioral changes/confusion. Sinemet was continued. Patient had swallow evaluation, failed. Modified barium swallow also failed. Patient's son would prefer to eventually take him home with a feeding tube, the patient's daughter does not believe that is the right course. Patient has not signed anyone has his primary decision maker. 06/29 The patient is resting in bed and appears comfortable. His speech is slurred and very hard to understand. Had a phone conversation with the patient's daughter in attempt to set up a family meeting. Palliative care philosophies and services explained. Unfortunately, she lives in [place]. She voiced many concerns regarding her father. She is concerned that her brother may need help caring for her father. Her brother has to work and the patient is then left alone for periods of time and has fallen on multiple occasions. She stated that she has had conversations with her father in the past regarding end of life. Back in 2018 he did agree to be fully resuscitated, placed on a ventilator if it were short term, and for placement of a feeding tube. She is worried that her brother is unrealistic and not able to face that their dad is near the end of his life. She values quality of life over quantity of life. The patient's son is at the bedside, and his sister is on speakerphone for family meeting. After I introduced myself, the son was defensive and stated he did not want me there or to talk about his father's medical issues with him. The discussion regarding PEG tube placement was non-productive. Attempted to talk about why PEG tube is not recommended for patient's with dementia. There is still risks of bleeding, infection, and aspiration involved with the peg tube. There is also a concern that he may pull it out. The patient's son stated that his father was getting the PEG tube tomorrow no matter what I say. It was difficult to talk and make a point during without being interrupted. the son was not interested in listening. It was explained multiple times that palliative care is a support service to help guide them in determining which treatments are beneficial and which may cause undue burden. he repeated that he did not want me there. The patient's daughter was trying to gather information and understand her father's condition to make good decisions. The son was angry telling her to shut up and to stop getting in the way of their dad's treatment. He stated she had no right to put conditions on his care. She would like someone to be there 24 hours a day to care for her father and to keep him safe. The son insists that his father is telling him that he doesn't want to give up and wants to continue treatment. I only observed the patient repeating what he was told to say. He is confused and not capable of making his own decisions at this time. Voiced concern about the patient's recent decline in functional status. Neha Galicia, oncology [employer], was called to clarify if they would continue the patient's Xtandi if the patient got a peg tube placed. She stated that he has done well with the treatment in the past. She will check into if the medication can be crushed and administered through a peg tube. If it is able to, they could resume his Xtandi immediately after peg placement. The patient's son stated if they are unable to continue his father's treatment here, then he will take him to [facility] for a second opinion. Ultimately, after much arguing, the patient's son and daughter agreed to proceed with a peg tube placement tomorrow. 07/01 The patient is lying in bed and appears less responsive today. He does grimace and moan out in pain occasionally. His son is at the bedside. He does n ot believe his father is suffering and is still adamant about doing everything to give him a fighting chance. Unfortunately the patient has a very poor prognosis. The son is asking for a list of ambulance companies that can help transport his father home when he is discharged. He was informed that his father will be here for a while yet. Objective - Vital Signs Vital signs: Vital Signs Temp 103.1 F H 07/04/22 12:14 Pulse 112 H 07/04/22 12:14 Resp 30 H 07/04/22 12:14 BP 135/56 07/04/22 12:14 Pulse Ox 90 L 07/04/22 12:14 FiO2 30 06/26/22 16:28 Intake & Output 07/03/22 07/04/22 07/04/22 18:59 06:59 18:59 Intake Total 70 90.333 Output Total 350 450 Balance -280 -359.667 Intake: Intake, IV Titration 90.333 Amount Diltiazem 125 mg In 90.333 Sodium Chloride 0.9% 100 ml @ 10 MG/HR 10 mls/hr IV .[id number] [facility] Rx#: [id number] Tube Feeding 70 Output: Urine 350 450 Uretheral (Edward) 100 Other: Voiding Method Indwelling Catheter Indwelling Catheter - Exam General: Well developed, well nourished. Cachectic, Chronically ill appearing + respiratory distress HEENT: Head is atraumatic, normocephalic. Mucus membranes dry CV: Heart regular in rate and rhythm positive S1 and S2. Lungs: Shallow breaths, tachypneic, Respirations labored. 4L NC Abdomen/GI: Soft. No organmegaly Musculoskeletal/ Extremities: zNo contractures, + generalized weakness Vascular: Radial pulses equal. 2/4. No peripheral edema Skin: Warm and dry. Neurologic: obtunded, not responsive. + withddraws from pain - Labs CBC & Chem 7: 07/04/22 08:00 07/04/22 08:00 Labs: Abnormal Lab Results - Last 24 Hours (Table) 07/02/22 07/03/22 07/03/22 Range/Units 11:46 15:56 16:42 RBC (4.30-5.90) m/uL Hgb (13.0-17.5) gm/dL Hct (39.0-53.0) % Lymphocytes # (1.0-4.8) k/uL Sodium 136 L (137-145) mmol/L BUN 51 H (9-20) mg/dL Glucose 164 H (74-99) mg/dL POC Glucose (mg/dL) 259 H 197 H (70-110) mg/dL Calcium 7.4 L (8.4-10.2) mg/dL Urine Protein (Negative) Urine Glucose (UA) (Negative) Urine Blood (Negative) Urine Mucus (None) /hpf 07/03/22 07/04/22 07/04/22 Range/Units 20:42 06:14 08:00 RBC 2.69 L (4.30-5.90) m/uL Hgb 8.3 L (13.0-17.5) gm/dL Hct 26.1 L (39.0-53.0) % Lymphocytes # 0.3 L (1.0-4.8) k/uL Sodium (137-145) mmol/L BUN (9-20) mg/dL Glucose (74-99) mg/dL POC Glucose (mg/dL) 261 H 296 H (70-110) mg/dL Calcium (8.4-10.2) mg/dL Urine Protein (Negative) Urine Glucose (UA) (Negative) Urine Blood (Negative) Urine Mucus (None) /hpf 07/04/22 07/04/22 07/04/22 Range/Units 08:00 09:00 11:33 RBC (4.30-5.90) m/uL Hgb (13.0-17.5) gm/dL Hct (39.0-53.0) % Lymphocytes # (1.0-4.8) k/uL Sodium (137-145) mmol/L BUN 59 H (9-20) mg/dL Glucose 268 H (74-99) mg/dL POC Glucose (mg/dL) 351 H (70-110) mg/dL Calcium 6.9 L (8.4-10.2) mg/dL Urine Protein 2+ H (Negative) Urine Glucose (UA) Trace H (Negative) Urine Blood Moderate H (Negative) Urine Mucus Rare H (None) /hpf Microbiology - Last 24 Hours (Table) 07/01/22 11:46 Blood Culture - Preliminary Blood No Growth after 48 hours Assessment and Plan Assessment: Symptoms * Pain - CPOT 6, continue Neurotin, Tylenol, and Morphine prn * Fatigue - + generalized weakness and fatigue * SOB - Yes, on 4L NC, Continue zithromax and rocephin * Insomnia - No * N/V - No * Anxiety - No * Depression - No * Confusion - Yes * Agitation - No * Hallucinations - No * Appetite/weight loss - NPO, failed swallow eval and MBS * Dysphagia - Yes, PEG tube in place, Tube feeding to start today * Constipation - Yes BM recorded. Continue miralax and colace * Incontinence - Edward catheter * Itch - No Plan: Summary/Goals - The patient is obtunded. He is febrile at 103.1 degrees, tac hycardic, and tachypneic in the 30's with labored breathing. The nurse is in the room trying to care or the patient. Unfortunately his son is there making unreasonable demands from her while she is on the phone trying to get help. He turned to me and asked me what I was doing there. I told him I was only there to check on him and his father and see how things were going. He said " I do not want to talk to you. Get out!" I gently reminded him that I know this is not an easy time for him, but I am here to support the patient and him. He replied loudly that he did not want me interfering with anything and to leave. The nurse told him to stop yelling and to be respectful of the staff. He stated that we were trying to kill his dad and not do anything for him. I stated that we were not with holding care, we are doing everything we can for his dad, but he is still declining. He yelled at the nurse and said "then do what I am asking you to do!" He was requesting that humidification be added to his nasal cannula and his oxygen be turned up. His SPO2 was 89%. The nurse replied that she has already notified respiratory therapy. Code status was addressed again. The son stated he wanted everything done. He will not just let his father . He will give hi a fighting chance. He was told that the nursing staff is concerned about doing CPR on the patient. He is very cachectic and frail. We would more that likely break ribs and cause more pain and suffering. He stated we were to do everything or his dad. Patient advocate and nursing ride assembly supervisor aware of issues. Spoke with the patient's daughter, Caprice, via telephone. She was updated on her father's condition and her brothers decisions. Attending also notified. Code Status - Full code Malu Spencer [facility]- Palliative Care [facility] [id number] Email: [email or web address] Time with Patient: Greater than 30
[2022-07-04 16:30] LABS: Glucose,Whole Blood 309 mg/dL (70-110)
--- NOTE | 2022-07-04 17:07 | P.PN ---
Subjective Progress Note Date: 07/04/22 07/04/2022: Patient was seen for a follow-up. Patient's son was present today. Per his report, patient has become slightly worse today. He is breathing at 30/m. He is saturating at 91% on 15 L a minute of facemask. His myoclonic twitching has improved. Patient still very lethargic. 06/26/2022: Patient was seen for a follow-up. Patient's aunt was present today as well. Still not able to meet patient's son. Patient's aunt has mentioned that patient's daughter who lives in [place] wants comfort care, whereas the son wants full code, and all treatments possible. Patient appears more comfortable today. Less myoclonic jerks. Objective - Vital Signs Vital signs: Vital Signs Temp 99.6 F 07/04/22 14:47 Pulse 107 H 07/04/22 14:47 Resp 30 H 07/04/22 14:47 BP 104/56 07/04/22 14:47 Pulse Ox 89 L 07/04/22 14:47 FiO2 30 06/26/22 16:28 Intake & Output 07/03/22 07/04/22 07/04/22 18:59 06:59 18:59 Intake Total 70 90.333 Output Total 350 450 300 Balance -280 -359.667 -300 Intake: Intake, IV Titration 90.333 Amount Diltiazem 125 mg In 90.333 Sodium Chloride 0.9% 100 ml @ 10 MG/HR 10 mls/hr IV .[id number] [facility] Rx#: [id number] Tube Feeding 70 Output: Urine 350 450 300 Uretheral (Edward) 100 Other: Voiding Method Indwelling Catheter Indwelling Catheter - Exam Patient is obtunded. Patient appears emaciated. He did open his eyes to calling his name, but then close it again. Pupils are equal and reactive. Patient has a facemask on. Patient has much less myoclonic jerks. Still has petichae. Examination is unchanged. Patient does move his extremities. - Labs CBC & Chem 7: 07/04/22 08:00 07/04/22 15:34 Labs: Abnormal Lab Results - Last 24 Hours (Table) 07/02/22 07/03/22 07/03/22 Range/Units 11:46 15:56 20:42 RBC (4.30-5.90) m/uL Hgb (13.0-17.5) gm/dL Hct (39.0-53.0) % Lymphocytes # (1.0-4.8) k/uL Sodium 136 L (137-145) mmol/L BUN 51 H (9-20) mg/dL Glucose 164 H (74-99) mg/dL POC Glucose (mg/dL) 259 H 261 H (70-110) mg/dL Calcium 7.4 L (8.4-10.2) mg/dL Urine Protein (Negative) Urine Glucose (UA) (Negative) Urine Blood (Negative) Urine Mucus (None) /hpf 07/04/22 07/04/22 07/04/22 Range/Units 06:14 08:00 08:00 RBC 2.69 L (4.30-5.90) m/uL Hgb 8.3 L (13.0-17.5) gm/dL Hct 26.1 L (39.0-53.0) % Lymphocytes # 0.3 L (1.0-4.8) k/uL Sodium (137-145) mmol/L BUN 59 H (9-20) mg/dL Glucose 268 H (74-99) mg/dL POC Glucose (mg/dL) 296 H (70-110) mg/dL Calcium 6.9 L (8.4-10.2) mg/dL Urine Protein (Negative) Urine Glucose (UA) (Negative) Urine Blood (Negative) Urine Mucus (None) /hpf 07/04/22 07/04/22 07/04/22 Range/Units 09:00 11:33 16:22 RBC (4.30-5.90) m/uL Hgb (13.0-17.5) gm/dL Hct (39.0-53.0) % Lymphocytes # (1.0-4.8) k/uL Sodium (137-145) mmol/L BUN (9-20) mg/dL Glucose (74-99) mg/dL POC Glucose (mg/dL) 351 H 309 H (70-110) mg/dL Calcium (8.4-10.2) mg/dL Urine Protein 2+ H (Negative) Urine Glucose (UA) Trace H (Negative) Urine Blood Moderate H (Negative) Urine Mucus Rare H (None) /hpf Microbiology - Last 24 Hours (Table) 07/01/22 11:46 Blood Culture - Preliminary Blood No Growth after 72 hours Assessment and Plan Assessment: * Altered mental status, likely due to toxic metabolic encephalopathy. Reasons multifactorial as mentioned below. * Hyponatremia * Acute pulmonary edema * Metastatic prostate cancer with bony metastasis * CAD * Diabetes * Hyperlipidemia * Hypertension * Parkinson's disease Plan: * Discontinue amantadine * Continue Sinemet 25/100, 2 tablet 4 times a day. Patient's son very persistent to make sure patient deceases Sinemet. * Speech therapy evaluation. * Treatment of other medical conditions as per IM and other specialties. * Prognosis is very guarded to poor based upon multiple comorbid conditions including terminal prostate cancer. * Discussed with patient's son in detail. * Supportive care.
[2022-07-04] MEDS: LACTATED RINGERS 1,000 ML IV SCH ×4 (17:59→22:29)
[2022-07-04 18:36] LABS: VBG PH 7.41 (7.31-7.41)
[2022-07-04 18:54] LABS: Calcium 6.7 mg/dL (8.4-10.2); Potassium 5.1 mmol/L (3.5-5.1)
[2022-07-04] MEDS: PIPERACILLIN-TAZOBACTAM 3.375 GM in SODIUM CHLORIDE 0.9% 100 ML IVPB SCH (22:27)
[2022-07-04] MEDS: NON FORMULARY DRUG (Enzalutamide [Xtandi] 40 MG Capsule) PO SCH (22:28)
[2022-07-04 22:49] LABS: Glucose,Whole Blood 213 mg/dL (70-110)
[2022-07-05] MEDS: LACTATED RINGERS 1,000 ML IV SCH ×3 (03:00→03:30)
[2022-07-05] MEDS ORDERED: SODIUM CHLORIDE 0.9% 1,000 ML IV ONE (03:17)
[2022-07-05] MEDS ORDERED: DEXTROSE 5% IN WATER 100 ML with AMIODARONE 150 MG IV ONE ×2 (03:30→11:36)
[2022-07-05] MEDS ORDERED: AMIODARONE 360 MG in DEXTROSE 5% IN WATER 200 ML IV ONE ×4 (03:40→23:56)
[2022-07-05] MEDS: PIPERACILLIN-TAZOBACTAM 3.375 GM in SODIUM CHLORIDE 0.9% 100 ML IVPB SCH ×3 (03:57→20:43)
[2022-07-05] MEDS ORDERED: SODIUM CHLORIDE 0.9% 500 ML 500 ML IV ONE ×2 (05:41→06:49)
[2022-07-05 06:45] LABS: Glucose,Whole Blood 263 mg/dL (70-110)
[2022-07-05] MEDS: CARBIDOPA-LEVODOPA 25-100 MG 1 EACH TAB PO SCH ×4 (06:50→21:29)
[2022-07-05] MEDS: INSULIN ASPART (NovoLOG) 100 UNIT/ML VIAL SQ SCH ×3 (06:50→20:43)
[2022-07-05] MEDS ORDERED: propofoL 100 ML IV ONE (08:09)
[2022-07-05] MEDS ORDERED: CISATRACURIUM 2 MG/ML 5 ML VIAL IV ONE ×2 (08:10→08:11)
[2022-07-05] MEDS ORDERED: SUCCINYLCHOLINE CHLORIDE 200 MG/10 ML VIAL IV ONE (08:11)
[2022-07-05 08:12] LABS: Glucose,Whole Blood 262 mg/dL (70-110)
[2022-07-05] MEDS ORDERED: NOREPINEPHRINE 4 MG in SODIUM CHLORIDE 0.9% 250 ML IV SCH (08:15)
[2022-07-05] MEDS ORDERED: NOREPINEPHRIN 4 MG-0.9% NS PMX 4 MG/250 ML ML IV ONE (08:17)
--- NOTE | 2022-07-05 08:32 | P.CNPUL ---
History of Present Illness Consult date: 07/05/22 Reason for consult: dyspnea, pneumonia History of present illness: 87-year-old male patient, transferred to the intensive care unit, unresponsive, on 100% nonrebreather facemask, labored breathing, using a cystoscopy, the breathing, currently in A. fib with RVR and hemodynamically unstable with a blood pressure of 70/54. This was an emergency consult as the patient got acutely L and the patient got transferred to the intensive care unit. I talked to the primary care team. 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 The patient's condition is progressively getting worse and he did aspirate and his chest x-ray revealed extensive left lower lobe consolidation limited left lower lobe pulmonary infiltrate. This probably facilitated his respiratory failure. Discussions with the family was done and the son was adamant on keeping in focal status and he wanted everything to be done for his father. For that reason, the patient got transferred to the ICU and we went to proceed with intubation mechanical ventilation. He is also on fluids and is going to be started on pressors. He has a Edward catheter in place. Urine output is almost negligible at this point in time. No urine is being seen in the Edward bag. The patient was seen by oncology during this current admission. Based on his very poor functional status, no further treatment was recommended this point in time. His nutritional status extremely poor. He looks extremely emaciated and weak and debilitated at this point in time. No labs from this morning. The most recent labs from yesterday shows a white cell count of 7.5 with hemoglobin of 8.3 and platelet count of 173. His sodium is at 138, the patient is an acute kidney injury with a BUN of 72 and a creatinine of 1.3 and sodium level is 138. IV fluids currently are no form of normal saline bolus. He is also on amiodarone drip at 1 mg an hour in regards to this atrial fibrillation with RVR. The blood sugars at 262 this morning. His lactic acid level is up to 8. He is on IV Zosyn. He is on Lovenox 40 mg subcu for DVT prophylaxis. He is unresponsive. Barely withdraws to painful stimulation. Review of Systems ROS unobtainable: due to mental status Past Medical History Past Medical History: Coronary Artery Disease (CAD), Cancer, Chest Pain / Angina, Diabetes Mellitus, Hyperlipidemia, Hypertension, Neurologic Disorder Additional Past Medical History / Comment(s): Hx skin Cancer., parkinson's., hx nose bleed with packing, anemia, prostate cancer with bone metastasis and mets to sternum., back pain, hx falls-has elbow and hand wounds from falling and s cratches on his face., constipation., cataracts, poor vision, [place]. History of Any Multi-Drug Resistant Organisms: None Reported Past Surgical History: Back Surgery, Heart Catheterization With Stent Additional Past Surgical History / Comment(s): Skin CA removed from L arm; Colonoscopies. Past Anesthesia/Blood Transfusion Reactions: No Reported Reaction, Family History of Problems w/ Anesthesia Additional Past Anesthesia/Blood Transfusion Reaction / Comment(s): son states his bloodpressure dropped during surgery and he is concerned about his Dad, would like his BP monitored closely- pt may not tell you is he is not feeling well. Date of Last Stent Placement:: 04/12/18 Past Psychological History: No Psychological Hx Reported Smoking Status: Never smoker Past Alcohol Use History: None Reported Past Drug Use History: None Reported - Past Family History Mother Family Medical History: No Reported History Additional Family Medical History / Comment(s): . Medications and Allergies Home Medications Medication Instructions Recorded Confirmed Type Nitroglycerin Sl Tabs [Nitrostat] 0.4 mg SUBLINGUAL Q5M PRN 06/06/20 06/24/22 History amLODIPine BESYLATE/BENAZEPRIL 1 cap PO BID 06/06/20 06/24/22 History [amLODIPine BESYLATE/BENAZEPRIL 5-10 MG] Atorvastatin Calcium [Lipitor] 80 mg PO HS 03/07/21 06/24/22 History Isosorbide Mononitrate ER [Imdur] 30 mg PO DAILY 03/07/21 06/24/22 History Carbidopa-Levodopa ER 50-200Mg 1 tab PO TID 01/11/22 06/24/22 History [Sinemet CR 50-200 mg] Enzalutamide [Xtandi] 160 mg PO HS 01/11/22 06/24/22 History Gabapentin [Neurontin] 100 mg PO TID 01/11/22 06/24/22 History sitaGLIPtin PHOS/metFORMIN HCL 0.5 tab PO BID 05/25/22 06/24/22 History [Janumet Xr 50-1,000 mg Tablet] Aspirin 81 mg PO DAILY #30 tab 05/26/22 06/24/22 Rx hydrALAZINE HCL [Apresoline] 25 mg PO TID #90 tab 05/26/22 06/24/22 Rx Carboxymethylcellulos/Glycerin 1 drop BOTH EYES 5XD PRN 06/24/22 06/24/22 History [Refresh Relieva 0.5-0.9% Drop] DULoxetine HCL [Cymbalta] 20 mg PO DIRECTED 06/24/22 06/24/22 History Metoprolol Tartrate [Lopressor] 25 mg PO BID 06/24/22 06/24/22 History Allergies Allergy/AdvReac Type Severity Reaction Status Date / Time No Known Allergies Allergy Verified 06/24/22 18:51 Physical Exam Vitals: Vital Signs Temp Pulse Resp BP Pulse Ox FiO2 07/05/22 08:09 100 07/05/22 07:41 100 100 07/05/22 04:20 98.9 F 142 H 24 84/49 96 07/05/22 03:37 117 H 22 95 07/05/22 03:35 97 07/05/22 00:00 100.6 F H 104 H 26 H 94/51 98 07/04/22 20:20 102.3 F H 101 H 24 85/46 94 L 07/04/22 17:35 103.2 F H 105 H 26 H 104/61 92 L 07/04/22 14:47 99.6 F 107 H 30 H 104/56 89 L 07/04/22 12:14 103.1 F H 112 H 30 H 135/56 90 L 07/04/22 09:00 98.4 F 99 27 H 125/60 91 L Intake and Output 07/04/22 07/05/22 07/05/22 22:59 06:59 14:59 Intake Total 125 Output Total 225 Balance -100 Intake: Intake, IV Titration 125 Amount Diltiazem 125 mg In 125 Sodium Chloride 0.9% 100 ml @ 10 MG/HR 10 mls/hr IV .[id number] [facility] Rx#: [id number] Oral 0 Tube Feeding 0 Output: Urine 225 Other: Voiding Method Indwelling Catheter Indwelling Catheter Weight 59 kg General: Poor;y developed, poorly nourished. Cachectic, Chronically ill appearing + respiratory distress, currently on 100% nonrebreather facemask and he is also having labored breathing with use of accessory muscles of breathing. The patient is extremely pale HEENT: Head is atraumatic, normocephalic. Mucus membranes dry, and there is extensive amount of dryness and sloughing of the mucosal membrane his mouth and tongue area and the patient also has some dried up secretions occupying his posterior oropharynx. CV: Regular rate and rhythm and the patient is atrial fibrillation with rapid ventricular response, murmurs cannot be accurately appreciated Lungs: Diminished breath sounds bilaterally and scattered rhonchi and scattered expiratory wheezes Abdominal exam revealed normal bowel sounds. The abdomen was soft, non-tender, and without masses, organomegaly, or appreciable enlargement of the abdominal aorta. Musculoskeletal/ Extremities: zNo contractures, + generalized weakness Vascular: Diminished pulses bilaterally and the patient has scabs and dried ulcers in his left upper extremity and right extremity along with areas of bruising in his left hip area and upper extremities bilaterally. Skin: Warm and dry. Multiple areas of bruising Neurologic: obtunded, not responsive. + withddraws from pain Results - Laboratory Findings CBC and BMP: 07/04/22 08:00 07/04/22 18:16 PT/INR, D-dimer PT 11.2 sec (9.0-12.0) 06/24/22 17:09 INR 1.0 (<1.2) 06/24/22 17:09 Abnormal lab findings: Abnormal Labs 06/24/22 06/24/22 06/24/22 17:09 17:09 17:09 WBC 12.6 H RBC 2.83 L Hgb 9.2 L D Hct 25.6 L Plt Count Neutrophils # 11.5 H Lymphocytes # 0.5 L VBG pCO2 VBG HCO3 Sodium 118 L* Potassium Chloride 87 L Carbon Dioxide 21 L BUN 31 H Creatinine Glucose 137 H POC Glucose (mg/dL) Osmolality Plasma Lactic Acid Rivas 3.7 H* Calcium 8.1 L Ionized Calcium Li Magnesium Alkaline Phosphatase 283 H Creatine Kinase 486 H Total Protein 5.2 L Albumin 3.1 L Urine Protein Urine Glucose (UA) Urine Ketones Urine Blood Urine Bilirubin Amorphous Sediment Urine Bacteria Hyaline Casts Urine Mucus Ur Random Sodium 06/24/22 06/24/22 06/24/22 17:09 19:00 19:00 WBC RBC Hgb Hct Plt Count Neutrophils # Lymphocytes # VBG pCO2 VBG HCO3 Sodium Potassium Chloride Carbon Dioxide BUN Creatinine Glucose POC Glucose (mg/dL) Osmolality 260 L Plasma Lactic Acid Rivas Calcium Ionized Calcium Li Magnesium Alkaline Phosphatase Creatine Kinase Total Protein Albumin Urine Protein 3+ H Urine Glucose (UA) Trace H Urine Ketones Urine Blood Urine Bilirubin Amorphous Sediment Rare H Urine Bacteria Hyaline Casts Urine Mucus Rare H Ur Random Sodium <20 L 06/24/22 06/24/22 06/24/22 20:54 23:57 23:57 WBC RBC Hgb Hct Plt Count Neutrophils # Lymphocytes # VBG pCO2 VBG HCO3 Sodium 122 L Potassium Chloride 91 L Carbon Dioxide 21 L BUN 30 H Creatinine Glucose 143 H POC Glucose (mg/dL) Osmolality Plasma Lactic Acid Rivas 2.3 H* 2.8 H* Calcium 7.8 L Ionized Calcium Li Magnesium Alkaline Phosphatase Creatine Kinase Total Protein Albumin Urine Protein Urine Glucose (UA) Urine Ketones Urine Blood Urine Bilirubin Amorphous Sediment Urine Bacteria Hyaline Casts Urine Mucus Ur Random Sodium 06/25/22 06/25/22 06/25/22 03:12 06:04 07:50 WBC RBC Hgb Hct Plt Count Neutrophils # Lymphocytes # VBG pCO2 VBG HCO3 Sodium 120 L 123 L Potassium Chloride 90 L Carbon Dioxide BUN 31 H Creatinine Glucose 155 H POC Glucose (mg/dL) 302 H Osmolality Plasma Lactic Acid Rivas Calcium 7.4 L Ionized Calcium Li Magnesium Alkaline Phosphatase Creatine Kinase Total Protein Albumin Urine Protein Urine Glucose (UA) Urine Ketones Urine Blood Urine Bilirubin Amorphous Sediment Urine Bacteria Hyaline Casts Urine Mucus Ur Random Sodium 06/25/22 06/25/22 06/25/22 11:37 16:42 18:37 WBC RBC Hgb Hct Plt Count Neutrophils # Lymphocytes # VBG pCO2 VBG HCO3 Sodium 122 L Potassium Chloride Carbon Dioxide BUN Creatinine Glucose POC Glucose (mg/dL) 132 H 142 H Osmolality Plasma Lactic Acid Rivas Calcium Ionized Calcium Li Magnesium Alkaline Phosphatase Creatine Kinase Total Protein Albumin Urine Protein Urine Glucose (UA) Urine Ketones Urine Blood Urine Bilirubin Amorphous Sediment Urine Bacteria Hyaline Casts Urine Mucus Ur Random Sodium 06/25/22 06/26/22 06/26/22 20:15 06:34 09:15 WBC RBC 2.47 L Hgb 7.8 L Hct 23.0 L Plt Count 128 L Neutrophils # 8.8 H Lymphocytes # 0.4 L VBG pCO2 VBG HCO3 Sodium Potassium Chloride Carbon Dioxide BUN Creatinine Glucose POC Glucose (mg/dL) 124 H 140 H Osmolality Plasma Lactic Acid Rivas Calcium Ionized Calcium Li Magnesium Alkaline Phosphatase Creatine Kinase Total Protein Albumin Urine Protein Urine Glucose (UA) Urine Ketones Urine Blood Urine Bilirubin Amorphous Sediment Urine Bacteria Hyaline Casts Urine Mucus Ur Random Sodium 06/26/22 06/26/22 06/26/22 09:15 11:33 11:57 WBC RBC Hgb Hct Plt Count Neutrophils # Lymphocytes # VBG pCO2 VBG HCO3 Sodium 126 L Potassium 3.0 L Chloride 96 L Carbon Dioxide 21 L BUN 33 H Creatinine Glucose 127 H POC Glucose (mg/dL) 140 H Osmolality Plasma Lactic Acid Rvias Calcium 7.0 L Ionized Calcium Li 4.4 L Magnesium Alkaline Phosphatase Creatine Kinase Total Protein Albumin Urine Protein Urine Glucose (UA) Urine Ketones Urine Blood Urine Bilirubin Amorphous Sediment Urine Bacteria Hyaline Casts Urine Mucus Ur Random Sodium 06/26/22 06/26/22 06/27/22 16:33 20:08 05:49 WBC RBC Hgb Hct Plt Count Neutrophils # Lymphocytes # VBG pCO2 VBG HCO3 Sodium Potassium Chloride Carbon Dioxide BUN Creatinine Glucose POC Glucose (mg/dL) 137 H 140 H 160 H Osmolality Plasma Lactic Acid Rivas Calcium Ionized Calcium Li Magnesium Alkaline Phosphatase Creatine Kinase Total Protein Albumin Urine Protein Urine Glucose (UA) Urine Ketones Urine Blood Urine Bilirubin Amorphous Sediment Urine Bacteria Hyaline Casts Urine Mucus Ur Random Sodium 06/27/22 06/27/22 06/27/22 07:56 07:56 11:40 WBC RBC 2.71 L Hgb 8.7 L Hct 25.1 L Plt Count Neutrophils # 9.0 H Lymphocytes # 0.5 L VBG pCO2 VBG HCO3 Sodium 131 L Potassium Chloride Carbon Dioxide 19 L BUN 33 H Creatinine Glucose 127 H POC Glucose (mg/dL) 148 H Osmolality Plasma Lactic Acid Rivas Calcium 7.1 L Ionized Calcium Il Magnesium Alkaline Phosphatase Creatine Kinase Total Protein Albumin Urine Protein Urine Glucose (UA) Urine Ketones Urine Blood Urine Bilirubin Amorphous Sediment Urine Bacteria Hyaline Casts Urine Mucus Ur Random Sodium 06/27/22 06/27/22 06/28/22 16:41 20:10 06:14 WBC RBC Hgb Hct Plt Count Neutrophils # Lymphocytes # VBG pCO2 VBG HCO3 Sodium Potassium Chloride Carbon Dioxide BUN Creatinine Glucose POC Glucose (mg/dL) 138 H 131 H 194 H Osmolality Plasma Lactic Acid Rivas Calcium Ionized Calcium Li Magnesium Alkaline Phosphatase Creatine Kinase Total Protein Albumin Urine Protein Urine Glucose (UA) Urine Ketones Urine Blood Urine Bilirubin Amorphous Sediment Urine Bacteria Hyaline Casts Urine Mucus Ur Random Sodium 06/28/22 06/28/22 06/28/22 08:09 08:09 12:07 WBC RBC 2.75 L Hgb 8.8 L Hct 25.9 L Plt Count Neutrophils # Lymphocytes # 0.4 L VBG pCO2 VBG HCO3 Sodium 135 L Potassium Chloride Carbon Dioxide 21 L BUN 41 H Creatinine Glucose 159 H POC Glucose (mg/dL) 173 H Osmolality Plasma Lactic Acid Rivas Calcium 6.8 L Ionized Calcium Li Magnesium Alkaline Phosphatase Creatine Kinase Total Protein Albumin Urine Protein Urine Glucose (UA) Urine Ketones Urine Blood Urine Bilirubin Amorphous Sediment Urine Bacteria Hyaline Casts Urine Mucus Ur Random Sodium 06/28/22 06/29/22 06/29/22 20:17 06:06 07:42 WBC RBC Hgb Hct Plt Count Neutrophils # Lymphocytes # VBG pCO2 VBG HCO3 Sodium Potassium Chloride 108 H Carbon Dioxide BUN 51 H Creatinine Glucose 154 H POC Glucose (mg/dL) 160 H 191 H Osmolality Plasma Lactic Acid Rivas Calcium 6.6 L Ionized Calcium Li Magnesium 2.4 H Alkaline Phosphatase Creatine Kinase Total Protein Albumin Urine Protein Urine Glucose (UA) Urine Ketones Urine Blood Urine Bilirubin Amorphous Sediment Urine Bacteria Hyaline Casts Urine Mucus Ur Random Sodium 06/29/22 06/29/22 06/29/22 12:04 16:40 20:05 WBC RBC Hgb Hct Plt Count Neutrophils # Lymphocytes # VBG pCO2 VBG HCO3 Sodium Potassium Chloride Carbon Dioxide BUN Creatinine Glucose POC Glucose (mg/dL) 170 H 164 H 156 H Osmolality Plasma Lactic Acid Rivas Calcium Ionized Calcium Li Magnesium Alkaline Phosphatase Creatine Kinase Total Protein Albumin Urine Protein Urine Glucose (UA) Urine Ketones Urine Blood Urine Bilirubin Amorphous Sediment Urine Bacteria Hyaline Casts Urine Mucus Ur Random Sodium 06/30/22 06/30/22 06/30/22 06:02 07:28 07:28 WBC RBC 2.73 L Hgb 8.7 L Hct 26.3 L Plt Count Neutrophils # Lymphocytes # VBG pCO2 VBG HCO3 Sodium Potassium Chloride 111 H Carbon Dioxide BUN 53 H Creatinine Glucose 154 H POC Glucose (mg/dL) 167 H Osmolality Plasma Lactic Acid Rivas Calcium 6.4 L* Ionized Calcium Li Magnesium Alkaline Phosphatase Creatine Kinase Total Protein Albumin Urine Protein Urine Glucose (UA) Urine Ketones Urine Blood Urine Bilirubin Amorphous Sediment Urine Bacteria Hyaline Casts Urine Mucus Ur Random Sodium 06/30/22 06/30/22 06/30/22 10:11 11:31 16:50 WBC RBC Hgb Hct Plt Count Neutrophils # Lymphocytes # VBG pCO2 VBG HCO3 Sodium Potassium Chloride Carbon Dioxide BUN Creatinine Glucose POC Glucose (mg/dL) 176 H 150 H Osmolality Plasma Lactic Acid Rivas Calcium Ionized Calcium Li 4.1 L Magnesium Alkaline Phosphatase Creatine Kinase Total Protein Albumin 2.9 L Urine Protein Urine Glucose (UA) Urine Ketones Urine Blood Urine Bilirubin Amorphous Sediment Urine Bacteria Hyaline Casts Urine Mucus Ur Random Sodium 06/30/22 07/01/22 07/01/22 20:14 06:10 11:46 WBC RBC Hgb Hct Plt Count Neutrophils # Lymphocytes # VBG pCO2 VBG HCO3 Sodium 148 H Potassium 3.2 L Chloride 113 H Carbon Dioxide BUN 50 H Creatinine Glucose 182 H POC Glucose (mg/dL) 165 H 193 H Osmolality Plasma Lactic Acid Rivas Calcium 6.5 L Ionized Calcium Li Magnesium Alkaline Phosphatase Creatine Kinase Total Protein Albumin Urine Protein Urine Glucose (UA) Urine Ketones Urine Blood Urine Bilirubin Amorphous Sediment Urine Bacteria Hyaline Casts Urine Mucus Ur Random Sodium 07/01/22 07/01/22 07/01/22 11:46 16:29 16:35 WBC RBC Hgb Hct Plt Count Neutrophils # Lymphocytes # VBG pCO2 VBG HCO3 Sodium Potassium Chloride Carbon Dioxide BUN Creatinine Glucose POC Glucose (mg/dL) 182 H 207 H Osmolality Plasma Lactic Acid Rivas Calcium Ionized Calcium Li Magnesium Alkaline Phosphatase Creatine Kinase Total Protein Albumin Urine Protein 3+ H Urine Glucose (UA) 1+ H Urine Ketones 1+ H Urine Blood Small H Urine Bilirubin 1+ H Amorphous Sediment Urine Bacteria Rare H Hyaline Casts 7 H Urine Mucus Few H Ur Random Sodium 07/01/22 07/02/22 07/02/22 19:34 05:51 11:46 WBC RBC Hgb Hct Plt Count Neutrophils # Lymphocytes # VBG pCO2 VBG HCO3 Sodium Potassium Chloride Carbon Dioxide BUN Creatinine Glucose POC Glucose (mg/dL) 183 H 230 H 259 H Osmolality Plasma Lactic Acid Rivas Calcium Ionized Calcium Li Magnesium Alkaline Phosphatase Creatine Kinase Total Protein Albumin Urine Protein Urine Glucose (UA) Urine Ketones Urine Blood Urine Bilirubin Amorphous Sediment Urine Bacteria Hyaline Casts Urine Mucus Ur Random Sodium 10/29/22 10/29/22 10/29/22 11:57 11:57 16:43 WBC 11.5 H RBC 2.54 L Hgb 8.0 L Hct 24.8 L Plt Count Neutrophils # 10.2 H Lymphocytes # 0.8 L VBG pCO2 VBG HCO3 Sodium Potassium Chloride 110 H Carbon Dioxide BUN 53 H Creatinine Glucose 220 H POC Glucose (mg/dL) 231 H Osmolality Plasma Lactic Acid Rivas Calcium 7.2 L Ionized Calcium Li Magnesium Alkaline Phosphatase Creatine Kinase Total Protein Albumin Urine Protein Urine Glucose (UA) Urine Ketones Urine Blood Urine Bilirubin Amorphous Sediment Urine Bacteria Hyaline Casts Urine Mucus Ur Random Sodium 07/02/22 07/02/22 07/03/22 18:42 20:30 06:01 WBC 12.6 H RBC 2.53 L Hgb 8.0 L Hct 25.0 L Plt Count Neutrophils # 11.4 H Lymphocytes # 0.6 L VBG pCO2 VBG HCO3 Sodium Potassium Chloride 109 H Carbon Dioxide BUN 52 H Creatinine Glucose 192 H POC Glucose (mg/dL) 223 H Osmolality Plasma Lactic Acid Rivas Calcium 7.5 L Ionized Calcium Li Magnesium Alkaline Phosphatase Creatine Kinase Total Protein Albumin Urine Protein Urine Glucose (UA) Urine Ketones Urine Blood Urine Bilirubin Amorphous Sediment Urine Bacteria Hyaline Casts Urine Mucus Ur Random Sodium 07/03/22 07/03/22 07/03/22 06:01 06:04 11:43 WBC RBC Hgb Hct Plt Count Neutrophils # Lymphocytes # VBG pCO2 VBG HCO3 Sodium Potassium Chloride Carbon Dioxide BUN 52 H Creatinine Glucose 231 H POC Glucose (mg/dL) 252 H 222 H Osmolality Plasma Lactic Acid Rivas Calcium 7.6 L Ionized Calcium Li Magnesium Alkaline Phosphatase 258 H Creatine Kinase Total Protein 5.0 L Albumin 2.5 L Urine Protein Urine Glucose (UA) Urine Ketones Urine Blood Urine Bilirubin Amorphous Sediment Urine Bacteria Hyaline Casts Urine Mucus Ur Random Sodium 07/03/22 07/03/22 07/03/22 15:56 16:42 20:42 WBC RBC Hgb Hct Plt Count Neutrophils # Lymphocytes # VBG pCO2 VBG HCO3 Sodium 136 L Potassium Chloride Carbon Dioxide BUN 51 H Creatinine Glucose 164 H POC Glucose (mg/dL) 197 H 261 H Osmolality Plasma Lactic Acid Rivas Calcium 7.4 L Ionized Calcium Li Magnesium Alkaline Phosphatase Creatine Kinase Total Protein Albumin Urine Protein Urine Glucose (UA) Urine Ketones Urine Blood Urine Bilirubin Amorphous Sediment Urine Bacteria Hyaline Casts Urine Mucus Ur Random Sodium 07/04/22 07/04/22 07/04/22 06:14 08:00 08:00 WBC RBC 2.69 L Hgb 8.3 L Hct 26.1 L Plt Count Neutrophils # Lymphocytes # 0.3 L VBG pCO2 VBG HCO3 Sodium Potassium Chloride Carbon Dioxide BUN 59 H Creatinine Glucose 268 H POC Glucose (mg/dL) 296 H Osmolality Plasma Lactic Acid Rivas Calcium 6.9 L Ionized Calcium Li Magnesium Alkaline Phosphatase Creatine Kinase Total Protein Albumin Urine Protein Urine Glucose (UA) Urine Ketones Urine Blood Urine Bilirubin Amorphous Sediment Urine Bacteria Hyaline Casts Urine Mucus Ur Random Sodium 07/04/22 07/04/22 07/04/22 09:00 11:33 16:22 WBC RBC Hgb Hct Plt Count Neutrophils # Lymphocytes # VBG pCO2 VBG HCO3 Sodium Potassium Chloride Carbon Dioxide BUN Creatinine Glucose POC Glucose (mg/dL) 351 H 309 H Osmolality Plasma Lactic Acid Rivas Calcium Ionized Calcium Li Magnesium Alkaline Phosphatase Creatine Kinase Total Protein Albumin Urine Protein 2+ H Urine Glucose (UA) Trace H Urine Ketones Urine Blood Moderate H Urine Bilirubin Amorphous Sediment Urine Bacteria Hyaline Casts Urine Mucus Rare H Ur Random Sodium 07/04/22 07/04/22 07/04/22 18:16 18:16 18:16 WBC RBC Hgb Hct Plt Count Neutrophils # Lymphocytes # VBG pCO2 33 L VBG HCO3 21 L Sodium Potassium Chloride Carbon Dioxide 18 L BUN 72 H Creatinine 1.33 H Glucose 277 H POC Glucose (mg/dL) Osmolality Plasma Lactic Acid Rivas 5.4 H* Calcium 6.7 L Ionized Calcium Li Magnesium Alkaline Phosphatase Creatine Kinase Total Protein Albumin Urine Protein Urine Glucose (UA) Urine Ketones Urine Blood Urine Bilirubin Amorphous Sediment Urine Bacteria Hyaline Casts Urine Mucus Ur Random Sodium 07/04/22 07/04/22 07/05/22 21:14 22:48 00:47 WBC RBC Hgb Hct Plt Count Neutrophils # Lymphocytes # VBG pCO2 VBG HCO3 Sodium Potassium Chloride Carbon Dioxide BUN Creatinine Glucose POC Glucose (mg/dL) 213 H Osmolality Plasma Lactic Acid Rivas 4.8 H* 4.0 H* Calcium Ionized Calcium Li Magnesium Alkaline Phosphatase Creatine Kinase Total Protein Albumin Urine Protein Urine Glucose (UA) Urine Ketones Urine Blood Urine Bilirubin Amorphous Sediment Urine Bacteria Hyaline Casts Urine Mucus Ur Random Sodium 07/05/22 07/05/22 07/05/22 04:43 06:42 08:10 WBC RBC Hgb Hct Plt Count Neutrophils # Lymphocytes # VBG pCO2 VBG HCO3 Sodium Potassium Chloride Carbon Dioxide BUN Creatinine Glucose POC Glucose (mg/dL) 263 H 262 H Osmolality Plasma Lactic Acid Rivas 8.0 H* Calcium Ionized Calcium Li Magnesium Alkaline Phosphatase Creatine Kinase Total Protein Albumin Urine Protein Urine Glucose (UA) Urine Ketones Urine Blood Urine Bilirubin Amorphous Sediment Urine Bacteria Hyaline Casts Urine Mucus Ur Random Sodium - Diagnostic Findings Chest x-ray: image reviewed Assessment and Plan Plan: Transfer care Acute hypoxic respiratory failure with bilateral lower lobe pulmonary infiltrates and extensive consolidation of left lower lobe, consider aspiration especially with his underlying comorbidities which include Parkinson's disease and prostate cancer. Sister healthy her stated pneumonia. The patient is currently on IV Zosyn. The patient will need immediate intubation mechanical ventilation he had family wanted a full CODE STATUS. Currently he is on 100% nonrebreather facemask Acute respiratory failure secondary to above Acute hypotension, possibly sepsis Acute lactic acidosis, with anion gap metabolic acidosis Change in mental status, multifactorial, obviously there is a component of metabolic encephalopathy and septic encephalopathy Acute kidney injury Chronic anemia History of Parkinson's disease Episodes of fever Sacral decubitus ulcers Severe protein calorie malnutrition Atrial fibrillation with rapid ventricular response, currently on amiodarone drip 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 Diabetes mellitus type 2 Coronary artery disease Mild to moderate LV systolic dysfunction with mild mitral regurgitation, ejection fraction order of 40-45% Very much impaired performance and functional status Plan Will intubated the patient immediately and put him on a mechanical ventilator per family's wishes. We'll insert a triple lumen catheter. We will also insert an arterial line We will proceed with aggressive fluid resuscitation with immediate 3 L of fluid normal saline and maintenance of 100 mL an hour Continue IV Zosyn and add vancomycin Obtain sputum Gram stain and culture Obtain blood culture Check pro calcitonin level Monitor lactic acid level Monitor urine output Restart enteral feeding for nutritional support Pressors if needed Albuterol rate control in regards stage of fibrillation with RVR. Wound care and the patient has a unstageable sacral decubitus ulcer and Opteform is applied and is obviously a pressure ulcer in his sacrum. Smaller ulcer also present on his left hip area. Extremely poor prognosis based on above mentioned Is a high risk for mortality in this patient despite our aggressive and ongoing care. The family will be made aware of that. Time with Patient: Greater than 30
[2022-07-05 08:37] LABS: VBG PH 7.41 (7.31-7.41)
[2022-07-05 08:39] LABS: Potassium 5.8 mmol/L (3.5-5.1)
[2022-07-05] MEDS ORDERED: VANCOMYCIN IV PER PHARMACY 1 EACH MISC MISCELLANE PRN (08:44)
--- NOTE | 2022-07-05 08:44 | P.PCN ---
Date of Procedure: 07/05/22 Preoperative Diagnosis: Septic shock Postoperative Diagnosis: Septic shock Procedure(s) Performed: Intubation, central line, arterial line Anesthesia: local Surgeon: Em Tucker Estimated Blood Loss (ml): 0 Condition: critical Disposition: ICU Operative Findings: Indication: Respiratory compromise. A time-out was completed verifying correct patient, procedure, site, positioning, and implant(s) or special equipment if applicable. The patient was positioned appropriately and a #8 endotracheal tube was placed under direct laryngoscopy. The tube was anchored at 22 cm at the teeth. Correct placement was confirmed by presence of bilateral breath sounds without air sounds in the abdomen on auscultation. An end-tidal CO2 monitor was also used to confirm tracheal placement of the ET tube. A chest x-ray was ordered to assess for pneumothorax and verify endotracheal tube placement. The patient tolerated the procedure well and there were no complications. Indication: Hemodynamic monitoring/Intravenous access. A time-out was completed verifying correct patient, procedure, site, positioning, and implant(s) or special equipment if applicable. The patient was placed in a dependent position appropriate for central line placement based on the vein to be cannulated. The patient right groin was prepped and draped in sterile fashion. 1% Lidocaine was used to anesthetize the surrounding skin area. A triple lumen 9F Cordis catheter was introduced into the right common femoral vein using Seldinger technique. The catheter was threaded smoothly over the guide wire and appropriate blood return was obtained. Each lumen of the catheter was evacuated of air and flushed with sterile saline. The catheter was then sutured in place to the skin and a sterile dressing applied. Perfusion to the extremity distal to the point of catheter insertion was checked and found to be adequate. The patient tolerated the procedure well and there were no complications. Indication: Hemodynamic monitoring. A time-out was completed verifying correct patient, procedure, site, positioning, and implant(s) or special equipment if applicable. Allens test was performed to ensure adequate perfusion. The patients right groin was prepped and draped in sterile fashion. 1% Lidocaine was used to anesthetize the area. An 18G Arrow arterial line was introduced into the right femoral artery. The catheter was threaded over the guide wire and the needle was removed with appropriate pulsatile blood return. Blood loss was minimal. The catheter was then sutured in place to the skin and a sterile dressing applied. Perfusion to the extremity distal to the point of catheter insertion was checked and found to be adequate. The patient tolerated the procedure well and there were no complications.
[2022-07-05 08:45] LABS: HCT 23.7 % (39.0-53.0); HGB 7.2 gm/dL (13.0-17.5); Hypochromasia Marked; MCH 30.6 pg (25.0-35.0); MCHC 30.5 g/dL (31.0-37.0); MCV 100.2 fL (80.0-100.0); Macrocytosis Slight; Mean Platelet Volume 10.9; Platelet Count 123 k/uL (150-450); RBC 2.37 m/uL (4.30-5.90); RDW 14.4 % (11.5-15.5); WBC 5.5 k/uL (3.8-10.6)
[2022-07-05 08:46] LABS: Calcium 6.1 mg/dL (8.4-10.2)
[2022-07-05] MEDS ORDERED: VANCOMYCIN 1,000 MG in SODIUM CHLORIDE 0.9% 250 ML IVPB SCH ×2 (09:00→16:00)
[2022-07-05] MEDS ORDERED: SODIUM CHLORIDE 0.9% 1,000 ML IV SCH (09:00)
--- NOTE | 2022-07-05 09:07 | XR ---
EXAMINATION TYPE: XR chest 1V portable DATE OF EXAM: 07/05/2022 COMPARISON: NONE HISTORY: Post intubation TECHNIQUE: Single frontal view of the chest is obtained. FINDINGS: NG tube seen coursing the left upper quadrant. ET tube appears 5 cm above the patrice. Diff use osseous abnormal attenuation. Coarsened central interstitium with left lower lobe infiltrate and pleural effusion. No sizable pneumothorax. IMPRESSION: 1. Left lower lobe infiltrate and pleural effusion stable. Correlate for underlying pneumonia. 2. Diffuse osseous metastases. 3. ET tube appears approximately 5 cm above patrice.
[2022-07-05 09:10] LABS: Band Neutrophils % 10 %; Lymphocytes # (M) 0.72 k/uL (1.0-4.8); Metamyelocytes # (M) 0.22 k/uL (0); Metamyelocytes % 4 %; Monocytes # (M) 0.28 k/uL (0-1.0); Myelocytes # (M) 0.06 k/uL (0); Myelocytes % 1 %; Neutrophils % (M) 68 %; Nucleated Red Blood Cells 0 /100 WBC (0-0); Total Cells Counted 200
[2022-07-05 09:11] LABS: Poikilocytosis (M) Present; Polychromasia Present
[2022-07-05] MEDS: ASPIRIN 81 MG PO SCH (09:11)
[2022-07-05] MEDS: TAMSULOSIN 0.4 MG CAP.ER.24H PO SCH (09:11)
[2022-07-05] MEDS: CHLORHEXIDINE GLUCONATE 15 ML CUP MUCOUS MEM SCH ×2 (09:11→20:43)
[2022-07-05] MEDS: polyethylene glycoL 3350 17 GM POWD.PACK PO SCH (09:12)
[2022-07-05] MEDS: SENNOSIDES 8.6 MG TAB PO SCH ×2 (09:12→20:44)
[2022-07-05] MEDS: GABAPENTIN 100 MG CAP PO SCH ×3 (09:12→21:29)
[2022-07-05] MEDS: PHENYLEPHRINE 40 MG in SODIUM CHLORIDE 0.9% 250 ML IV SCH ×3 (09:21→15:38)
[2022-07-05] MEDS ORDERED: AMIODARONE 450 MG in DEXTROSE 5% IN WATER 250 ML IV SCH ×2 (09:40)
[2022-07-05 10:10] LABS: ABG Base Excess -16.8 mmol/L; ABG HCO3 13 mmol/L (21-25); ABG Oxygen Saturation 90.5 % (94-97); ABG PCO2 44 mmHg (35-45); ABG PO2 81 mmHg (83-108); ABG TCO2 15 mmol/L (19-24); Allen Test Performed? Yes
[2022-07-05 10:13] LABS: ABG PH 7.08 (7.35-7.45)
[2022-07-05] MEDS ORDERED: SODIUM BICARB 8.4% 50 ML SYR (1 MEQ/ML) IV STA ×2 (10:16→21:13)
[2022-07-05] MEDS: DEXTROSE 5% IN WATER 1,000 ML with SODIUM BICARB (1 MEQ/ML) 150 ML IV SCH ×2 (10:35→18:29)
--- NOTE | 2022-07-05 11:04 | P.CONS ---
History of Present Illness - Reason for Consult Consult date: 07/05/22 wound care - History of Present Illness This is an 87-year-old gentleman being seen in the ICU for sacral stage II pressure ulcer. Patient has a stage II pressure ulcer to the sacrum measuring approximately 4 x 2 x 0.2 cm with granulation and slough noted within the wound bed. No tunneling or undermining noted. Patient is currently intubated. Patient's past medical history is significant for coronary artery disease, cancer, chest pain, diabetes, hyperlipidemia, hypertension, Parkinson's. Review of systems: Unable to obtain due to intubation Physical exam: General Appearance: Alert, cooperative, no distress, appears stated age. Skin: See HPI all other Skin color, texture, tugor normal, no rashes or lesions. Neurologic: Alert oriented x3 Assessment: 1. Stage II pressure ulcer sacrum 2. Diabetes mellitus and ulceration Plan: 1. Apply honey gel, sacral border foam, change Monday. Thank you for the consultation any questions to contact the wound care center DNP note has been reviewed and discussed with Dr. Nixon and the impression and plan of care has been directed as dictated. 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 History of Any Multi-Drug Resistant Organisms: None Reported Past Surgical History: Back Surgery, Heart Catheterization With Stent Additional Past Surgical History / Comment(s): Skin CA removed from L arm; Colonoscopies. Past Anesthesia/Blood Transfusion Reactions: No Reported Reaction, Family History of Problems w/ Anesthesia Additional Past Anesthesia/Blood Transfusion Reaction / Comm: son states his bloodpressure dropped during surgery and he is concerned about his Dad, would like his BP monitored closely- pt may not tell you is he is not feeling well. Date of Last Stent Placement:: 04/12/18 Past Psychological History: No Psychological Hx Reported Smoking Status: Never smoker Past Alcohol Use History: None Reported Past Drug Use History: None Reported - Past Family History Mother Family Medical History: No Reported History Additional Family Medical History / Comment(s): . Medications and Allergies Home Medications Medication Instructions Recorded Confirmed Type Nitroglycerin Sl Tabs [Nitrostat] 0.4 mg SUBLINGUAL Q5M PRN 06/06/20 06/24/22 History amLODIPine BESYLATE/BENAZEPRIL 1 cap PO BID 06/06/20 06/24/22 History [amLODIPine BESYLATE/BENAZEPRIL 5-10 MG] Atorvastatin Calcium [Lipitor] 80 mg PO HS 03/07/21 06/24/22 History Isosorbide Mononitrate ER [Imdur] 30 mg PO DAILY 03/07/21 06/24/22 History Carbidopa-Levodopa ER 50-200Mg 1 tab PO TID 01/11/22 06/24/22 History [Sinemet CR 50-200 mg] Enzalutamide [Xtandi] 160 mg PO HS 01/11/22 06/24/22 History Gabapentin [Neurontin] 100 mg PO TID 01/11/22 06/24/22 History sitaGLIPtin PHOS/metFORMIN HCL 0.5 tab PO BID 05/25/22 06/24/22 History [Janumet Xr 50-1,000 mg Tablet] Aspirin 81 mg PO DAILY #30 tab 05/26/22 06/24/22 Rx hydrALAZINE HCL [Apresoline] 25 mg PO TID #90 tab 05/26/22 06/24/22 Rx Carboxymethylcellulos/Glycerin 1 drop BOTH EYES 5XD PRN 06/24/22 06/24/22 History [Refresh Relieva 0.5-0.9% Drop] DULoxetine HCL [Cymbalta] 20 mg PO DIRECTED 06/24/22 06/24/22 History Metoprolol Tartrate [Lopressor] 25 mg PO BID 06/24/22 06/24/22 History Allergies Allergy/AdvReac Type Severity Reaction Status Date / Time No Known Allergies Allergy Verified 06/24/22 18:51 Physical Exam Vitals: Vital Signs Temp Pulse Pulse Resp BP BP Pulse Ox 07/05/22 10:40 07/05/22 10:15 137 H 21 102/57 88 L 07/05/22 10:00 138 H 21 87 L 07/05/22 09:45 141 H 22 86 L 07/05/22 09:30 147 H 21 88 L 07/05/22 09:15 137 H 21 80/55 93 L 07/05/22 09:00 141 H 21 85/72 93 L 07/05/22 08:45 129 H 16 90/43 83 L 07/05/22 08:30 146 H 93/62 90 L 07/05/22 08:15 133 H 21 73/50 94 L 07/05/22 08:09 07/05/22 08:04 98.0 F 140 H 26 H 107/94 07/05/22 07:41 100 07/05/22 04:20 98.9 F 142 H 24 84/49 96 07/05/22 03:37 117 H 22 95 07/05/22 03:35 97 07/05/22 00:00 100.6 F H 104 H 26 H 94/51 98 07/04/22 20:20 102.3 F H 101 H 24 85/46 94 L 07/04/22 17:35 103.2 F H 105 H 26 H 104/61 92 L 07/04/22 14:47 99.6 F 107 H 30 H 104/56 89 L 07/04/22 12:14 103.1 F H 112 H 30 H 135/56 90 L FiO2 07/05/22 10:40 100 07/05/22 10:15 07/05/22 10:00 07/05/22 09:45 07/05/22 09:30 07/05/22 09:15 07/05/22 09:00 07/05/22 08:45 07/05/22 08:30 100 07/05/22 08:15 07/05/22 08:09 100 07/05/22 08:04 07/05/22 07:41 100 07/05/22 04:20 07/05/22 03:37 07/05/22 03:35 07/05/22 00:00 07/04/22 20:20 07/04/22 17:35 07/04/22 14:47 07/04/22 12:14 Intake and Output 07/04/22 07/05/22 07/05/22 22:59 06:59 14:59 Intake Total 125 183.790 Output Total 225 Balance -100 183.790 Intake: Intake, IV Titration 125 183.790 Amount Diltiazem 125 mg In 125 Sodium Chloride 0.9% 100 ml @ 10 MG/HR 10 mls/hr IV .[id number] SHANELL Rx#: [id number] Norepinephrine 4 mg In 153.420 Sodium Chloride 0.9% 250 ml @ 0.03 MCG/KG/MIN 6. 744 mls/hr IV .Q24H SHANELL Rx#:[id number] Phenylephrine 40 mg In 24.352 Sodium Chloride 0.9% 250 ml @ 1 MCG/KG/MIN 22.479 mls/hr IV .[id number] SHANELL Rx #:[id number] propofoL 1,000 mg In 6.018 Empty Bag 1 bag @ 15 MCG/ KG/MIN 5.31 mls/hr IV . [id number] SHANELL Rx#:[id number] Oral 0 Tube Feeding 0 Output: Urine 225 Other: Voiding Method Indwelling Catheter Indwelling Catheter Weight 59 kg ABP, PAP, CO, CI - Last 8 Hours Arterial Blood Pressure 101/48 Arterial Blood Pressure 92/45 Arterial Blood Pressure 107/47 Arterial Blood Pressure 93/46 Arterial Blood Pressure 111/53 Arterial Blood Pressure 93/44 Arterial Blood Pressure 75/37 Results CBC & Chem 7: 07/05/22 08:13 07/05/22 08:13 Labs: Abnormal Lab Results - Last 24 Hours (Table) 07/04/22 07/04/22 07/04/22 Range/Units 09:00 11:33 16:22 RBC (4.30-5.90) m/uL Hgb (13.0-17.5) gm/dL Hct (39.0-53.0) % MCV (80.0-100.0) fL MCHC (31.0-37.0) g/dL Plt Count (150-450) k/uL Lymphocytes # (Manual) (1.0-4.8) k/uL Metamyelocytes # (Man) (0) k/uL Myelocytes # (Manual) (0) k/uL ABG pH (7.35-7.45) ABG pO2 (83-108) mmHg ABG HCO3 (21-25) mmol/L ABG Total CO2 (19-24) mmol/L ABG O2 Saturation (94-97) % VBG pCO2 (37-51) mmHg VBG HCO3 (24-28) mmol/L Potassium (3.5-5.1) mmol/L Chloride (98-107) mmol/L Carbon Dioxide (22-30) mmol/L BUN (9-20) mg/dL Creatinine (0.66-1.25) mg/dL Glucose (74-99) mg/dL POC Glucose (mg/dL) 351 H 309 H (70-110) mg/dL Plasma Lactic Acid Rivas (0.7-2.0) mmol/L Calcium (8.4-10.2) mg/dL Urine Protein 2+ H (Negative) Urine Glucose (UA) Trace H (Negative) Urine Blood Moderate H (Negative) Urine Mucus Rare H (None) /hpf 07/04/22 07/04/22 07/04/22 Range/Units 18:16 18:16 18:16 RBC (4.30-5.90) m/uL Hgb (13.0-17.5) gm/dL Hct (39.0-53.0) % MCV (80.0-100.0) fL MCHC (31.0-37.0) g/dL Plt Count (150-450) k/uL Lymphocytes # (Manual) (1.0-4.8) k/uL Metamyelocytes # (Man) (0) k/uL Myelocytes # (Manual) (0) k/uL ABG pH (7.35-7.45) ABG pO2 (83-108) mmHg ABG HCO3 (21-25) mmol/L ABG Total CO2 (19-24) mmol/L ABG O2 Saturation (94-97) % VBG pCO2 33 L (37-51) mmHg VBG HCO3 21 L (24-28) mmol/L Potassium (3.5-5.1) mmol/L Chloride (98-107) mmol/L Carbon Dioxide 18 L (22-30) mmol/L BUN 72 H (9-20) mg/dL Creatinine 1.33 H (0.66-1.25) mg/dL Glucose 277 H (74-99) mg/dL POC Glucose (mg/dL) (70-110) mg/dL Plasma Lactic Acid Rivas 5.4 H* (0.7-2.0) mmol/L Calcium 6.7 L (8.4-10.2) mg/dL Urine Protein (Negative) Urine Glucose (UA) (Negative) Urine Blood (Negative) Urine Mucus (None) /hpf 07/04/22 07/04/22 07/05/22 Range/Units 21:14 22:48 00:47 RBC (4.30-5.90) m/uL Hgb (13.0-17.5) gm/dL Hct (39.0-53.0) % MCV (80.0-100.0) fL MCHC (31.0-37.0) g/dL Plt Count (150-450) k/uL Lymphocytes # (Manual) (1.0-4.8) k/uL Metamyelocytes # (Man) (0) k/uL Myelocytes # (Manual) (0) k/uL ABG pH (7.35-7.45) ABG pO2 (83-108) mmHg ABG HCO3 (21-25) mmol/L ABG Total CO2 (19-24) mmol/L ABG O2 Saturation (94-97) % VBG pCO2 (37-51) mmHg VBG HCO3 (24-28) mmol/L Potassium (3.5-5.1) mmol/L Chloride (98-107) mmol/L Carbon Dioxide (22-30) mmol/L BUN (9-20) mg/dL Creatinine (0.66-1.25) mg/dL Glucose (74-99) mg/dL POC Glucose (mg/dL) 213 H (70-110) mg/dL Plasma Lactic Acid Rivas 4.8 H* 4.0 H* (0.7-2.0) mmol/L Calcium (8.4-10.2) mg/dL Urine Protein (Negative) Urine Glucose (UA) (Negative) Urine Blood (Negative) Urine Mucus (None) /hpf 07/05/22 07/05/22 07/05/22 Range/Units 04:43 06:42 08:10 RBC (4.30-5.90) m/uL Hgb (13.0-17.5) gm/dL Hct (39.0-53.0) % MCV (80.0-100.0) fL MCHC (31.0-37.0) g/dL Plt Count (150-450) k/uL Lymphocytes # (Manual) (1.0-4.8) k/uL Metamyelocytes # (Man) (0) k/uL Myelocytes # (Manual) (0) k/uL ABG pH (7.35-7.45) ABG pO2 (83-108) mmHg ABG HCO3 (21-25) mmol/L ABG Total CO2 (19-24) mmol/L ABG O2 Saturation (94-97) % VBG pCO2 (37-51) mmHg VBG HCO3 (24-28) mmol/L Potassium (3.5-5.1) mmol/L Chloride (98-107) mmol/L Carbon Dioxide (22-30) mmol/L BUN (9-20) mg/dL Creatinine (0.66-1.25) mg/dL Glucose (74-99) mg/dL POC Glucose (mg/dL) 263 H 262 H (70-110) mg/dL Plasma Lactic Acid Rivas 8.0 H* (0.7-2.0) mmol/L Calcium (8.4-10.2) mg/dL Urine Protein (Negative) Urine Glucose (UA) (Negative) Urine Blood (Negative) Urine Mucus (None) /hpf 07/05/22 07/05/22 07/05/22 Range/Units 08:13 08:13 08:13 RBC 2.37 L (4.30-5.90) m/uL Hgb 7.2 L (13.0-17.5) gm/dL Hct 23.7 L (39.0-53.0) % MCV 100.2 H (80.0-100.0) fL MCHC 30.5 L (31.0-37.0) g/dL Plt Count 123 L (150-450) k/uL Lymphocytes # (Manual) 0.72 L (1.0-4.8) k/uL Metamyelocytes # (Man) 0.22 H (0) k/uL Myelocytes # (Manual) 0.06 H (0) k/uL ABG pH (7.35-7.45) ABG pO2 (83-108) mmHg ABG HCO3 (21-25) mmol/L ABG Total CO2 (19-24) mmol/L ABG O2 Saturation (94-97) % VBG pCO2 19 L (37-51) mmHg VBG HCO3 12 L (24-28) mmol/L Potassium 5.8 H (3.5-5.1) mmol/L Chloride 108 H (98-107) mmol/L Carbon Dioxide 15 L (22-30) mmol/L BUN 77 H (9-20) mg/dL Creatinine 1.73 H (0.66-1.25) mg/dL Glucose 241 H (74-99) mg/dL POC Glucose (mg/dL) (70-110) mg/dL Plasma Lactic Acid Rivas (0.7-2.0) mmol/L Calcium 6.1 L* (8.4-10.2) mg/dL Urine Protein (Negative) Urine Glucose (UA) (Negative) Urine Blood (Negative) Urine Mucus (None) /hpf 07/05/22 07/05/22 Range/Units 08:13 10:09 RBC (4.30-5.90) m/uL Hgb (13.0-17.5) gm/dL Hct (39.0-53.0) % MCV (80.0-100.0) fL MCHC (31.0-37.0) g/dL Plt Count (150-450) k/uL Lymphocytes # (Manual) (1.0-4.8) k/uL Metamyelocytes # (Man) (0) k/uL Myelocytes # (Manual) (0) k/uL ABG pH 7.08 L* (7.35-7.45) ABG pO2 81 L (83-108) mmHg ABG HCO3 13 L (21-25) mmol/L ABG Total CO2 15 L (19-24) mmol/L ABG O2 Saturation 90.5 L (94-97) % VBG pCO2 (37-51) mmHg VBG HCO3 (24-28) mmol/L Potassium (3.5-5.1) mmol/L Chloride (98-107) mmol/L Carbon Dioxide (22-30) mmol/L BUN (9-20) mg/dL Creatinine (0.66-1.25) mg/dL Glucose (74-99) mg/dL POC Glucose (mg/dL) (70-110) mg/dL Plasma Lactic Acid Rivas 10.0 H* (0.7-2.0) mmol/L Calcium (8.4-10.2) mg/dL Urine Protein (Negative) Urine Glucose (UA) (Negative) Urine Blood (Negative) Urine Mucus (None) /hpf Microbiology - Last 24 Hours (Table) 07/04/22 08:00 Blood Culture - Preliminary Blood No Growth after 24 hours 07/04/22 08:00 Blood Culture - Preliminary Blood No Growth after 24 hours 07/01/22 11:46 Blood Culture - Preliminary Blood No Growth after 72 hours Assessment and Plan (1) Stage II pressure ulcer of sacral region Current Visit: Yes Status: Acute Code(s): L89.152 - PRESSURE ULCER OF SACRAL REGION, STAGE 2 SNOMED Code(s): 11046259848740679 (2) Type 2 diabetes mellitus with other skin ulcer Current Visit: Yes Status: Acute Code(s): E11.622 - TYPE 2 DIABETES MELLITUS WITH OTHER SKIN ULCER; L98.499 - NON-PRESSURE CHRONIC ULCER OF SKIN OF SITES W UNSP SEVERITY SNOMED Code(s): 659362570
--- NOTE | 2022-07-05 11:12 | P.PN ---
Subjective Progress Note Date: 07/05/22 Principal diagnosis: altered mental status Hospital Course: 87-year-old male with history of stage IV prostate cancer with bone metastases, Parkinson's disease, type 2 diabetes, hypertension, CAD status post PCI, ischemic cardiomyopathy with an EF of 40-45% stented with altered mental status and failure to thrive. Initially found to have severe hypervolemic hyponatremia likely in setting of CHF exacerbation. Patient was evaluated by cardiology and nephrology. Sodium improved with diuretics. Altered mental status likely secondary to severe hyponatremia versus worsening Parkinson's. Neurology was consulted. Amantadine was discontinued as it can potentially cause urinary retention and behavioral changes/confusion. Sinemet was continued. Patient had swallow evaluation, failed. Modified barium swallow also failed. Had multiple discussions with son and daughter in regards to poor overall prognosis. Son is adamant about giving his father a "fighting chance". After much back and forth between son and daughter, they agreed on getting a PEG tube for the father. Patient had PEG tube placed, was tolerating feeds well. Oncology and palliative care was also consulted, and had similar views on his overall prognosis. Patient became acutely ill in the afternoon on 07/04. He was hypoxic, tachypneic and tachycardic. BP remained stable at that time. CXR demonstrated new consolidation concerning for aspiration pneumonia. Feeds were held, and supplement oxygen was provided. Patient was fluid resuscitated, and started on broad spectrum antibiotics. Overnight, patient continued to decompensate, requiring more supplemental oxygen, poor mental status, low BP, and high lactate. In the morning of 07/05, patient was transferred to ICU for further care. Patient's family still adamant about continue aggressive care despite very poor overall prognosis and high risk for mortality. Subjective: Patient seen and examined at bedside. A team was called this morning. Patient's respiratory status worsening, hypotensive, and tacycardic. Son at bedside, and continued to scream and demand that we do everything to keep him alive. Reiterated that despite aggressive medical therapy, patient still has overall poor prognosis and would benefit from comfort measures. However, patient's son along with his sister over the phone agreed to keep the medical treatment going, including the need for intubation and pressors. Patient was discussed with ICU attending, and admitted to ICU for further care. Pertinent positives and negatives as discussed above, a complete review of systems was performed and all other systems are negative. Vitals Signs Reviewed. General: nontoxic, in severe respiratory distress, appears at stated age, cachectic Derm: warm, dry, sacral decubitus wounds present on admission (reported by nurse) Head: atraumatic, normocephalic, symmetric Eyes: no lid lag, anicteric sclera Mouth: no lip lesion, mucus membranes moist Cardiovascular: S1S2 reg, tachycardic, no murmur Lungs: bilateral rhonchi with accessory muscle use, 15 L non-rebreather Abdominal: soft, slight tender to palpation, no guarding, no appreciable organomegaly Ext: no edema, no contractures Neuro: grimaces to sternal rubs, not opening eyes spontaneously Psych: unable to assess Assessment and Plan: Septic shock, 2/2 aspiration pneumonia Sacral decub ulcer present of admission Anuric YUKI Lactic acidosis Hypokalemia - ICU transfer for intubation and pressors - continue broad spectrum antibiotics - IV fluid resuscitation, bicarb - nephrology following Acute metabolic encepholopathy Parkinson's disease -continued sinemet, holding amantadine -EEG, no seizures -CT - osseous metastatic disease - likely metabolic Hypernatremia -resolved Hypervolemic hyponatremia present on admission, resolved Acute on chronic systolic Heart Failure Exacerbation - resolved Severe protein calorie malnutrition -PEG feeds Wide complex tachycardia - not on cardizem due to septic shock , now on amio - cardiology following stage IV prostate cancer -Oncology consult -Also seen by palliative -Prognosis remains poor Chronic conditions: Type II DM, coronary artery disease -Continue with home meds -Insulin sliding scale with blood glucose monitoring DVT prophylaxis -lovenox CODE STATUS: Full Code Anticipated discharge date: pending clinical course Anticipated discharge place: pending clinical course Objective - Vital Signs Vital signs: Vital Signs Temp 98.0 F 07/05/22 08:04 Pulse 137 H 07/05/22 10:15 Resp 21 07/05/22 10:15 BP 102/57 07/05/22 10:15 Pulse Ox 88 L 07/05/22 10:15 FiO2 100 07/05/22 10:40 Intake & Output 07/04/22 07/05/22 07/05/22 18:59 06:59 18:59 Intake Total 125 0 177.585 Output Total 300 225 Balance -175 -225 177.585 Weight 59 kg Intake: Intake, IV Titration 125 177.585 Amount Diltiazem 125 mg In 125 Sodium Chloride 0.9% 100 ml @ 10 MG/HR 10 mls/hr IV .[id number] [facility] Rx#: [id number] Norepinephrine 4 mg In 153.233 Sodium Chloride 0.9% 250 ml @ 0.03 MCG/KG/MIN 6. 744 mls/hr IV .Q24H [facility] Rx#:[id number] Phenylephrine 40 mg In 24.352 Sodium Chloride 0.9% 250 ml @ 1 MCG/KG/MIN 22.479 mls/hr IV .[id number] [facility] Rx #:[id number] Oral 0 Tube Feeding 0 Output: Urine 300 225 Other: Voiding Method Indwelling Catheter Indwelling Catheter ABP, PAP, CO, CI - Last Documented Arterial Blood Pressure 101/48 - Labs CBC & Chem 7: 07/05/22 08:13 07/05/22 08:13 Labs: Abnormal Lab Results - Last 24 Hours (Table) 07/04/22 07/04/22 07/04/22 Range/Units 09:00 11:33 16:22 RBC (4.30-5.90) m/uL Hgb (13.0-17.5) gm/dL Hct (39.0-53.0) % MCV (80.0-100.0) fL MCHC (31.0-37.0) g/dL Plt Count (150-450) k/uL Lymphocytes # (Manual) (1.0-4.8) k/uL Metamyelocytes # (Man) (0) k/uL Myelocytes # (Manual) (0) k/uL ABG pH (7.35-7.45) ABG pO2 (83-108) mmHg ABG HCO3 (21-25) mmol/L ABG Total CO2 (19-24) mmol/L ABG O2 Saturation (94-97) % VBG pCO2 (37-51) mmHg VBG HCO3 (24-28) mmol/L Potassium (3.5-5.1) mmol/L Chloride (98-107) mmol/L Carbon Dioxide (22-30) mmol/L BUN (9-20) mg/dL Creatinine (0.66-1.25) mg/dL Glucose (74-99) mg/dL POC Glucose (mg/dL) 351 H 309 H (70-110) mg/dL Plasma Lactic Acid Rivas (0.7-2.0) mmol/L Calcium (8.4-10.2) mg/dL Urine Protein 2+ H (Negative) Urine Glucose (UA) Trace H (Negative) Urine Blood Moderate H (Negative) Urine Mucus Rare H (None) /hpf 07/04/22 07/04/22 07/04/22 Range/Units 18:16 18:16 18:16 RBC (4.30-5.90) m/uL Hgb (13.0-17.5) gm/dL Hct (39.0-53.0) % MCV (80.0-100.0) fL MCHC (31.0-37.0) g/dL Plt Count (150-450) k/uL Lymphocytes # (Manual) (1.0-4.8) k/uL Metamyelocytes # (Man) (0) k/uL Myelocytes # (Manual) (0) k/uL ABG pH (7.35-7.45) ABG pO2 (83-108) mmHg ABG HCO3 (21-25) mmol/L ABG Total CO2 (19-24) mmol/L ABG O2 Saturation (94-97) % VBG pCO2 33 L (37-51) mmHg VBG HCO3 21 L (24-28) mmol/L Potassium (3.5-5.1) mmol/L Chloride (98-107) mmol/L Carbon Dioxide 18 L (22-30) mmol/L BUN 72 H (9-20) mg/dL Creatinine 1.33 H (0.66-1.25) mg/dL Glucose 277 H (74-99) mg/dL POC Glucose (mg/dL) (70-110) mg/dL Plasma Lactic Acid Rivas 5.4 H* (0.7-2.0) mmol/L Calcium 6.7 L (8.4-10.2) mg/dL Urine Protein (Negative) Urine Glucose (UA) (Negative) Urine Blood (Negative) Urine Mucus (None) /hpf 07/04/22 07/04/22 07/05/22 Range/Units 21:14 22:48 00:47 RBC (4.30-5.90) m/uL Hgb (13.0-17.5) gm/dL Hct (39.0-53.0) % MCV (80.0-100.0) fL MCHC (31.0-37.0) g/dL Plt Count (150-450) k/uL Lymphocytes # (Manual) (1.0-4.8) k/uL Metamyelocytes # (Man) (0) k/uL Myelocytes # (Manual) (0) k/uL ABG pH (7.35-7.45) ABG pO2 (83-108) mmHg ABG HCO3 (21-25) mmol/L ABG Total CO2 (19-24) mmol/L ABG O2 Saturation (94-97) % VBG pCO2 (37-51) mmHg VBG HCO3 (24-28) mmol/L Potassium (3.5-5.1) mmol/L Chloride (98-107) mmol/L Carbon Dioxide (22-30) mmol/L BUN (9-20) mg/dL Creatinine (0.66-1.25) mg/dL Glucose (74-99) mg/dL POC Glucose (mg/dL) 213 H (70-110) mg/dL Plasma Lactic Acid Rivas 4.8 H* 4.0 H* (0.7-2.0) mmol/L Calcium (8.4-10.2) mg/dL Urine Protein (Negative) Urine Glucose (UA) (Negative) Urine Blood (Negative) Urine Mucus (None) /hpf 07/05/22 07/05/22 07/05/22 Range/Units 04:43 06:42 08:10 RBC (4.30-5.90) m/uL Hgb (13.0-17.5) gm/dL Hct (39.0-53.0) % MCV (80.0-100.0) fL MCHC (31.0-37.0) g/dL Plt Count (150-450) k/uL Lymphocytes # (Manual) (1.0-4.8) k/uL Metamyelocytes # (Man) (0) k/uL Myelocytes # (Manual) (0) k/uL ABG pH (7.35-7.45) ABG pO2 (83-108) mmHg ABG HCO3 (21-25) mmol/L ABG Total CO2 (19-24) mmol/L ABG O2 Saturation (94-97) % VBG pCO2 (37-51) mmHg VBG HCO3 (24-28) mmol/L Potassium (3.5-5.1) mmol/L Chloride (98-107) mmol/L Carbon Dioxide (22-30) mmol/L BUN (9-20) mg/dL Creatinine (0.66-1.25) mg/dL Glucose (74-99) mg/dL POC Glucose (mg/dL) 263 H 262 H (70-110) mg/dL Plasma Lactic Acid Rivas 8.0 H* (0.7-2.0) mmol/L Calcium (8.4-10.2) mg/dL Urine Protein (Negative) Urine Glucose (UA) (Negative) Urine Blood (Negative) Urine Mucus (None) /hpf 07/05/22 07/05/22 07/05/22 Range/Units 08:13 08:13 08:13 RBC 2.37 L (4.30-5.90) m/uL Hgb 7.2 L (13.0-17.5) gm/dL Hct 23.7 L (39.0-53.0) % MCV 100.2 H (80.0-100.0) fL MCHC 30.5 L (31.0-37.0) g/dL Plt Count 123 L (150-450) k/uL Lymphocytes # (Manual) 0.72 L (1.0-4.8) k/uL Metamyelocytes # (Man) 0.22 H (0) k/uL Myelocytes # (Manual) 0.06 H (0) k/uL ABG pH (7.35-7.45) ABG pO2 (83-108) mmHg ABG HCO3 (21-25) mmol/L ABG Total CO2 (19-24) mmol/L ABG O2 Saturation (94-97) % VBG pCO2 19 L (37-51) mmHg VBG HCO3 12 L (24-28) mmol/L Potassium 5.8 H (3.5-5.1) mmol/L Chloride 108 H (98-107) mmol/L Carbon Dioxide 15 L (22-30) mmol/L BUN 77 H (9-20) mg/dL Creatinine 1.73 H (0.66-1.25) mg/dL Glucose 241 H (74-99) mg/dL POC Glucose (mg/dL) (70-110) mg/dL Plasma Lactic Acid Rivas (0.7-2.0) mmol/L Calcium 6.1 L* (8.4-10.2) mg/dL Urine Protein (Negative) Urine Glucose (UA) (Negative) Urine Blood (Negative) Urine Mucus (None) /hpf 07/05/22 07/05/22 Range/Units 08:13 10:09 RBC (4.30-5.90) m/uL Hgb (13.0-17.5) gm/dL Hct (39.0-53.0) % MCV (80.0-100.0) fL MCHC (31.0-37.0) g/dL Plt Count (150-450) k/uL Lymphocytes # (Manual) (1.0-4.8) k/uL Metamyelocytes # (Man) (0) k/uL Myelocytes # (Manual) (0) k/uL ABG pH 7.08 L* (7.35-7.45) ABG pO2 81 L (83-108) mmHg ABG HCO3 13 L (21-25) mmol/L ABG Total CO2 15 L (19-24) mmol/L ABG O2 Saturation 90.5 L (94-97) % VBG pCO2 (37-51) mmHg VBG HCO3 (24-28) mmol/L Potassium (3.5-5.1) mmol/L Chloride (98-107) mmol/L Carbon Dioxide (22-30) mmol/L BUN (9-20) mg/dL Creatinine (0.66-1.25) mg/dL Glucose (74-99) mg/dL POC Glucose (mg/dL) (70-110) mg/dL Plasma Lactic Acid Rivas 10.0 H* (0.7-2.0) mmol/L Calcium (8.4-10.2) mg/dL Urine Protein (Negative) Urine Glucose (UA) (Negative) Urine Blood (Negative) Urine Mucus (None) /hpf Microbiology - Last 24 Hours (Table) 07/04/22 08:00 Blood Culture - Preliminary Blood No Growth after 24 hours 07/04/22 08:00 Blood Culture - Preliminary Blood No Growth after 24 hours 07/01/22 11:46 Blood Culture - Preliminary Blood No Growth after 72 hours
--- NOTE | 2022-07-05 11:32 | P.PN ---
Subjective Patient is seen for follow-up for hyponatremia. Serum sodium level had been staying around 138. Patient was transferred to the ICU this morning. He initially developed A. fib with RVR and hypotension. He was noted to have agonal breathing and was subsequently intubated. Currently patient is maintained on amiodarone drip. He is also on levo fed for hypotension. Urine output has dropped off. Maintained on tube feedings FiO2 at 100% currently No active bleeding noted. Serum creatinine increased to 1.7 today Objective - Vital Signs Vital signs: Vital Signs Temp 98.0 F 07/05/22 08:04 Pulse 137 H 07/05/22 10:15 Resp 21 07/05/22 10:15 BP 102/57 07/05/22 10:15 Pulse Ox 88 L 07/05/22 10:15 FiO2 100 07/05/22 10:40 Intake & Output 07/04/22 07/05/22 07/05/22 18:59 06:59 18:59 Intake Total 125 0 183.790 Output Total 300 225 Balance -175 -225 183.790 Weight 59 kg 59 kg Intake: Intake, IV Titration 125 183.790 Amount Diltiazem 125 mg In 125 Sodium Chloride 0.9% 100 ml @ 10 MG/HR 10 mls/hr IV .[id number] [facility] Rx#: [id number] Norepinephrine 4 mg In 153.420 Sodium Chloride 0.9% 250 ml @ 0.03 MCG/KG/MIN 6. 744 mls/hr IV .Q24H [facility] Rx#:[id number] Phenylephrine 40 mg In 24.352 Sodium Chloride 0.9% 250 ml @ 1 MCG/KG/MIN 22.479 mls/hr IV .[id number] [facility] Rx #:[id number] propofoL 1,000 mg In 6.018 Empty Bag 1 bag @ 15 MCG/ KG/MIN 5.31 mls/hr IV . [id number] [facility] Rx#:[id number] Oral 0 Tube Feeding 0 Output: Urine 300 225 Other: Voiding Method Indwelling Catheter Indwelling Catheter ABP, PAP, CO, CI - Last Documented Arterial Blood Pressure 101/48 - Exam Patient is sedated and intubated Examination of the heart S1 and S2 Examination of the lungs decreased breath sounds at the bases Abdomen is soft nontender Examination lower extremities shows trace edema - Labs CBC & Chem 7: 07/05/22 08:13 07/05/22 08:13 Labs: Abnormal Lab Results - Last 24 Hours (Table) 07/04/22 07/04/22 07/04/22 Range/Units 09:00 11:33 16:22 RBC (4.30-5.90) m/uL Hgb (13.0-17.5) gm/dL Hct (39.0-53.0) % MCV (80.0-100.0) fL MCHC (31.0-37.0) g/dL Plt Count (150-450) k/uL Lymphocytes # (Manual) (1.0-4.8) k/uL Metamyelocytes # (Man) (0) k/uL Myelocytes # (Manual) (0) k/uL ABG pH (7.35-7.45) ABG pO2 (83-108) mmHg ABG HCO3 (21-25) mmol/L ABG Total CO2 (19-24) mmol/L ABG O2 Saturation (94-97) % VBG pCO2 (37-51) mmHg VBG HCO3 (24-28) mmol/L Potassium (3.5-5.1) mmol/L Chloride (98-107) mmol/L Carbon Dioxide (22-30) mmol/L BUN (9-20) mg/dL Creatinine (0.66-1.25) mg/dL Glucose (74-99) mg/dL POC Glucose (mg/dL) 351 H 309 H (70-110) mg/dL Plasma Lactic Acid Rivas (0.7-2.0) mmol/L Calcium (8.4-10.2) mg/dL Urine Protein 2+ H (Negative) Urine Glucose (UA) Trace H (Negative) Urine Blood Moderate H (Negative) Urine Mucus Rare H (None) /hpf 07/04/22 07/04/22 07/04/22 Range/Units 18:16 18:16 18:16 RBC (4.30-5.90) m/uL Hgb (13.0-17.5) gm/dL Hct (39.0-53.0) % MCV (80.0-100.0) fL MCHC (31.0-37.0) g/dL Plt Count (150-450) k/uL Lymphocytes # (Manual) (1.0-4.8) k/uL Metamyelocytes # (Man) (0) k/uL Myelocytes # (Manual) (0) k/uL ABG pH (7.35-7.45) ABG pO2 (83-108) mmHg ABG HCO3 (21-25) mmol/L ABG Total CO2 (19-24) mmol/L ABG O2 Saturation (94-97) % VBG pCO2 33 L (37-51) mmHg VBG HCO3 21 L (24-28) mmol/L Potassium (3.5-5.1) mmol/L Chloride (98-107) mmol/L Carbon Dioxide 18 L (22-30) mmol/L BUN 72 H (9-20) mg/dL Creatinine 1.33 H (0.66-1.25) mg/dL Glucose 277 H (74-99) mg/dL POC Glucose (mg/dL) (70-110) mg/dL Plasma Lactic Acid Rivas 5.4 H* (0.7-2.0) mmol/L Calcium 6.7 L (8.4-10.2) mg/dL Urine Protein (Negative) Urine Glucose (UA) (Negative) Urine Blood (Negative) Urine Mucus (None) /hpf 07/04/22 07/04/22 07/05/22 Range/Units 21:14 22:48 00:47 RBC (4.30-5.90) m/uL Hgb (13.0-17.5) gm/dL Hct (39.0-53.0) % MCV (80.0-100.0) fL MCHC (31.0-37.0) g/dL Plt Count (150-450) k/uL Lymphocytes # (Manual) (1.0-4.8) k/uL Metamyelocytes # (Man) (0) k/uL Myelocytes # (Manual) (0) k/uL ABG pH (7.35-7.45) ABG pO2 (83-108) mmHg ABG HCO3 (21-25) mmol/L ABG Total CO2 (19-24) mmol/L ABG O2 Saturation (94-97) % VBG pCO2 (37-51) mmHg VBG HCO3 (24-28) mmol/L Potassium (3.5-5.1) mmol/L Chloride (98-107) mmol/L Carbon Dioxide (22-30) mmol/L BUN (9-20) mg/dL Creatinine (0.66-1.25) mg/dL Glucose (74-99) mg/dL POC Glucose (mg/dL) 213 H (70-110) mg/dL Plasma Lactic Acid Rivas 4.8 H* 4.0 H* (0.7-2.0) mmol/L Calcium (8.4-10.2) mg/dL Urine Protein (Negative) Urine Glucose (UA) (Negative) Urine Blood (Negative) Urine Mucus (None) /hpf 07/05/22 07/05/22 07/05/22 Range/Units 04:43 06:42 08:10 RBC (4.30-5.90) m/uL Hgb (13.0-17.5) gm/dL Hct (39.0-53.0) % MCV (80.0-100.0) fL MCHC (31.0-37.0) g/dL Plt Count (150-450) k/uL Lymphocytes # (Manual) (1.0-4.8) k/uL Metamyelocytes # (Man) (0) k/uL Myelocytes # (Manual) (0) k/uL ABG pH (7.35-7.45) ABG pO2 (83-108) mmHg ABG HCO3 (21-25) mmol/L ABG Total CO2 (19-24) mmol/L ABG O2 Saturation (94-97) % VBG pCO2 (37-51) mmHg VBG HCO3 (24-28) mmol/L Potassium (3.5-5.1) mmol/L Chloride (98-107) mmol/L Carbon Dioxide (22-30) mmol/L BUN (9-20) mg/dL Creatinine (0.66-1.25) mg/dL Glucose (74-99) mg/dL POC Glucose (mg/dL) 263 H 262 H (70-110) mg/dL Plasma Lactic Acid Rivas 8.0 H* (0.7-2.0) mmol/L Calcium (8.4-10.2) mg/dL Urine Protein (Negative) Urine Glucose (UA) (Negative) Urine Blood (Negative) Urine Mucus (None) /hpf 07/05/22 07/05/22 07/05/22 Range/Units 08:13 08:13 08:13 RBC 2.37 L (4.30-5.90) m/uL Hgb 7.2 L (13.0-17.5) gm/dL Hct 23.7 L (39.0-53.0) % MCV 100.2 H (80.0-100.0) fL MCHC 30.5 L (31.0-37.0) g/dL Plt Count 123 L (150-450) k/uL Lymphocytes # (Manual) 0.72 L (1.0-4.8) k/uL Metamyelocytes # (Man) 0.22 H (0) k/uL Myelocytes # (Manual) 0.06 H (0) k/uL ABG pH (7.35-7.45) ABG pO2 (83-108) mmHg ABG HCO3 (21-25) mmol/L ABG Total CO2 (19-24) mmol/L ABG O2 Saturation (94-97) % VBG pCO2 19 L (37-51) mmHg VBG HCO3 12 L (24-28) mmol/L Potassium 5.8 H (3.5-5.1) mmol/L Chloride 108 H (98-107) mmol/L Carbon Dioxide 15 L (22-30) mmol/L BUN 77 H (9-20) mg/dL Creatinine 1.73 H (0.66-1.25) mg/dL Glucose 241 H (74-99) mg/dL POC Glucose (mg/dL) (70-110) mg/dL Plasma Lactic Acid Rivas (0.7-2.0) mmol/L Calcium 6.1 L* (8.4-10.2) mg/dL Urine Protein (Negative) Urine Glucose (UA) (Negative) Urine Blood (Negative) Urine Mucus (None) /hpf 07/05/22 07/05/22 Range/Units 08:13 10:09 RBC (4.30-5.90) m/uL Hgb (13.0-17.5) gm/dL Hct (39.0-53.0) % MCV (80.0-100.0) fL MCHC (31.0-37.0) g/dL Plt Count (150-450) k/uL Lymphocytes # (Manual) (1.0-4.8) k/uL Metamyelocytes # (Man) (0) k/uL Myelocytes # (Manual) (0) k/uL ABG pH 7.08 L* (7.35-7.45) ABG pO2 81 L (83-108) mmHg ABG HCO3 13 L (21-25) mmol/L ABG Total CO2 15 L (19-24) mmol/L ABG O2 Saturation 90.5 L (94-97) % VBG pCO2 (37-51) mmHg VBG HCO3 (24-28) mmol/L Potassium (3.5-5.1) mmol/L Chloride (98-107) mmol/L Carbon Dioxide (22-30) mmol/L BUN (9-20) mg/dL Creatinine (0.66-1.25) mg/dL Glucose (74-99) mg/dL POC Glucose (mg/dL) (70-110) mg/dL Plasma Lactic Acid Rivas 10.0 H* (0.7-2.0) mmol/L Calcium (8.4-10.2) mg/dL Urine Protein (Negative) Urine Glucose (UA) (Negative) Urine Blood (Negative) Urine Mucus (None) /hpf Microbiology - Last 24 Hours (Table) 07/04/22 08:00 Blood Culture - Preliminary Blood No Growth after 24 hours 07/04/22 08:00 Blood Culture - Preliminary Blood No Growth after 24 hours 07/01/22 11:46 Blood Culture - Preliminary Blood No Growth after 72 hours Assessment and Plan Assessment: 1. Hyponatremia from poor solute intake. Hypervolemic. Resolved. Lasix has been decreased. Also received Samsca this admission. Sodium level had increased to 148 and patient was started on D5W which was discontinued. Free water flushes currently on hold as well. 2. Acute hypoxic respiratory failure , currently intubated. 3. Prostate cancer with metastatic disease. 4. Benign hypertension. Stable. 5. Diabetes mellitus. 6. Parkinson's disease. Neurology following. 7. Urinary retention. Edward catheter placed. On Flomax. No hydronephrosis noted on kidney ultrasound. Left kidney not visualized. 8. Hypokalemia from poor intake and diuresis. Replaced. 10. A. fib with RVR maintained on amiodarone drip 11. Metabolic acidosis currently on bicarb drip 12. Acute kidney injury secondary to hypotension and hemodynamic instability 13. Hyperkalemia associated with acute kidney injury and metabolic acidosis Plan: Continue with the bicarb drip Continue pressors Repeat labs later on today
--- NOTE | 2022-07-05 12:07 | P.PN ---
Subjective Progress Note Date: 07/05/22 CHIEF COMPLAINT: Malnutrition HISTORY OF PRESENT ILLNESS: Patient required transfer to ICU this morning for hypotension and A. fib RVR. He did require to be intubated. He is on Levophed. Patient is status post PEG tube placement on 06/30/22. Patient is tolerating tube feeds. WBC 5.5 Hgb 7.2 platelets 123 Patient seen and examined with Dr. holland PHYSICAL EXAM: VITAL SIGNS: Reviewed. GENERAL: no acute distress. ABDOMEN: Soft. Nondistended. Nontender. PEG tube site clean dry and intact ASSESSMENT: 1. Moderate protein calorie malnutrition status post PEG tube placement 2. Failed swallow evaluation 3. Dysphagia 4. 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 Parkinson's disease PLAN: -Continue ICU management -Continue tube feeds -Continue supportive care Physician Commissioner Of Officials note has been reviewed by physician. Signing provider agrees with the documented findings, assessment, and plan of care. Objective - Vital Signs Vital signs: Vital Signs Temp 98.0 F 07/05/22 08:04 Pulse 144 H 07/05/22 11:45 Resp 28 H 07/05/22 11:00 BP 112/51 07/05/22 11:15 Pulse Ox 99 07/05/22 11:45 FiO2 100 07/05/22 11:00 Intake & Output 07/04/22 07/05/22 07/05/22 18:59 06:59 18:59 Intake Total 125 0 241.111 Output Total 300 225 Balance -175 -225 241.111 Weight 59 kg 59 kg Intake: Intake, IV Titration 125 241.111 Amount Diltiazem 125 mg In 125 Sodium Chloride 0.9% 100 ml @ 10 MG/HR 10 mls/hr IV .[id number] SHANELL Rx#: [id number] Norepinephrine 4 mg In 153.420 Sodium Chloride 0.9% 250 ml @ 0.03 MCG/KG/MIN 6. 744 mls/hr IV .Q24H SHANELL Rx#:[id number] Phenylephrine 40 mg In 81.673 Sodium Chloride 0.9% 250 ml @ 1 MCG/KG/MIN 22.479 mls/hr IV .[id number] SHANELL Rx #:[id number] propofoL 1,000 mg In 6.018 Empty Bag 1 bag @ 15 MCG/ KG/MIN 5.31 mls/hr IV . [id number] SHANELL Rx#:[id number] Oral 0 Tube Feeding 0 Output: Urine 300 225 Other: Voiding Method Indwelling Catheter Indwelling Catheter ABP, PAP, CO, CI - Last Documented Arterial Blood Pressure 62/39 - Labs CBC & Chem 7: 07/05/22 08:13 07/05/22 08:13 Labs: Abnormal Lab Results - Last 24 Hours (Table) 07/04/22 07/04/22 07/04/22 Range/Units 09:00 16:22 18:16 RBC (4.30-5.90) m/uL Hgb (13.0-17.5) gm/dL Hct (39.0-53.0) % MCV (80.0-100.0) fL MCHC (31.0-37.0) g/dL Plt Count (150-450) k/uL Lymphocytes # (Manual) (1.0-4.8) k/uL Metamyelocytes # (Man) (0) k/uL Myelocytes # (Manual) (0) k/uL ABG pH (7.35-7.45) ABG pO2 (83-108) mmHg ABG HCO3 (21-25) mmol/L ABG Total CO2 (19-24) mmol/L ABG O2 Saturation (94-97) % VBG pCO2 (37-51) mmHg VBG HCO3 (24-28) mmol/L Potassium (3.5-5.1) mmol/L Chloride (98-107) mmol/L Carbon Dioxide 18 L (22-30) mmol/L BUN 72 H (9-20) mg/dL Creatinine 1.33 H (0.66-1.25) mg/dL Glucose 277 H (74-99) mg/dL POC Glucose (mg/dL) 309 H (70-110) mg/dL Plasma Lactic Acid Rivas (0.7-2.0) mmol/L Calcium 6.7 L (8.4-10.2) mg/dL Urine Protein 2+ H (Negative) Urine Glucose (UA) Trace H (Negative) Urine Blood Moderate H (Negative) Urine Mucus Rare H (None) /hpf 07/04/22 07/04/22 07/04/22 Range/Units 18:16 18:16 21:14 RBC (4.30-5.90) m/uL Hgb (13.0-17.5) gm/dL Hct (39.0-53.0) % MCV (80.0-100.0) fL MCHC (31.0-37.0) g/dL Plt Count (150-450) k/uL Lymphocytes # (Manual) (1.0-4.8) k/uL Metamyelocytes # (Man) (0) k/uL Myelocytes # (Manual) (0) k/uL ABG pH (7.35-7.45) ABG pO2 (83-108) mmHg ABG HCO3 (21-25) mmol/L ABG Total CO2 (19-24) mmol/L ABG O2 Saturation (94-97) % VBG pCO2 33 L (37-51) mmHg VBG HCO3 21 L (24-28) mmol/L Potassium (3.5-5.1) mmol/L Chloride (98-107) mmol/L Carbon Dioxide (22-30) mmol/L BUN (9-20) mg/dL Creatinine (0.66-1.25) mg/dL Glucose (74-99) mg/dL POC Glucose (mg/dL) (70-110) mg/dL Plasma Lactic Acid Rivas 5.4 H* 4.8 H* (0.7-2.0) mmol/L Calcium (8.4-10.2) mg/dL Urine Protein (Negative) Urine Glucose (UA) (Negative) Urine Blood (Negative) Urine Mucus (None) /hpf 07/04/22 07/05/22 07/05/22 Range/Units 22:48 00:47 04:43 RBC (4.30-5.90) m/uL Hgb (13.0-17.5) gm/dL Hct (39.0-53.0) % MCV (80.0-100.0) fL MCHC (31.0-37.0) g/dL Plt Count (150-450) k/uL Lymphocytes # (Manual) (1.0-4.8) k/uL Metamyelocytes # (Man) (0) k/uL Myelocytes # (Manual) (0) k/uL ABG pH (7.35-7.45) ABG pO2 (83-108) mmHg ABG HCO3 (21-25) mmol/L ABG Total CO2 (19-24) mmol/L ABG O2 Saturation (94-97) % VBG pCO2 (37-51) mmHg VBG HCO3 (24-28) mmol/L Potassium (3.5-5.1) mmol/L Chloride (98-107) mmol/L Carbon Dioxide (22-30) mmol/L BUN (9-20) mg/dL Creatinine (0.66-1.25) mg/dL Glucose (74-99) mg/dL POC Glucose (mg/dL) 213 H (70-110) mg/dL Plasma Lactic Acid Rivas 4.0 H* 8.0 H* (0.7-2.0) mmol/L Calcium (8.4-10.2) mg/dL Urine Protein (Negative) Urine Glucose (UA) (Negative) Urine Blood (Negative) Urine Mucus (None) /hpf 07/05/22 07/05/22 07/05/22 Range/Units 06:42 08:10 08:13 RBC 2.37 L (4.30-5.90) m/uL Hgb 7.2 L (13.0-17.5) gm/dL Hct 23.7 L (39.0-53.0) % MCV 100.2 H (80.0-100.0) fL MCHC 30.5 L (31.0-37.0) g/dL Plt Count 123 L (150-450) k/uL Lymphocytes # (Manual) 0.72 L (1.0-4.8) k/uL Metamyelocytes # (Man) 0.22 H (0) k/uL Myelocytes # (Manual) 0.06 H (0) k/uL ABG pH (7.35-7.45) ABG pO2 (83-108) mmHg ABG HCO3 (21-25) mmol/L ABG Total CO2 (19-24) mmol/L ABG O2 Saturation (94-97) % VBG pCO2 (37-51) mmHg VBG HCO3 (24-28) mmol/L Potassium (3.5-5.1) mmol/L Chloride (98-107) mmol/L Carbon Dioxide (22-30) mmol/L BUN (9-20) mg/dL Creatinine (0.66-1.25) mg/dL Glucose (74-99) mg/dL POC Glucose (mg/dL) 263 H 262 H (70-110) mg/dL Plasma Lactic Acid Rivas (0.7-2.0) mmol/L Calcium (8.4-10.2) mg/dL Urine Protein (Negative) Urine Glucose (UA) (Negative) Urine Blood (Negative) Urine Mucus (None) /hpf 07/05/22 07/05/22 07/05/22 Range/Units 08:13 08:13 08:13 RBC (4.30-5.90) m/uL Hgb (13.0-17.5) gm/dL Hct (39.0-53.0) % MCV (80.0-100.0) fL MCHC (31.0-37.0) g/dL Plt Count (150-450) k/uL Lymphocytes # (Manual) (1.0-4.8) k/uL Metamyelocytes # (Man) (0) k/uL Myelocytes # (Manual) (0) k/uL ABG pH (7.35-7.45) ABG pO2 (83-108) mmHg ABG HCO3 (21-25) mmol/L ABG Total CO2 (19-24) mmol/L ABG O2 Saturation (94-97) % VBG pCO2 19 L (37-51) mmHg VBG HCO3 12 L (24-28) mmol/L Potassium 5.8 H (3.5-5.1) mmol/L Chloride 108 H (98-107) mmol/L Carbon Dioxide 15 L (22-30) mmol/L BUN 77 H (9-20) mg/dL Creatinine 1.73 H (0.66-1.25) mg/dL Glucose 241 H (74-99) mg/dL POC Glucose (mg/dL) (70-110) mg/dL Plasma Lactic Acid Rivas 10.0 H* (0.7-2.0) mmol/L Calcium 6.1 L* (8.4-10.2) mg/dL Urine Protein (Negative) Urine Glucose (UA) (Negative) Urine Blood (Negative) Urine Mucus (None) /hpf 07/05/22 Range/Units 10:09 RBC (4.30-5.90) m/uL Hgb (13.0-17.5) gm/dL Hct (39.0-53.0) % MCV (80.0-100.0) fL MCHC (31.0-37.0) g/dL Plt Count (150-450) k/uL Lymphocytes # (Manual) (1.0-4.8) k/uL Metamyelocytes # (Man) (0) k/uL Myelocytes # (Manual) (0) k/uL ABG pH 7.08 L* (7.35-7.45) ABG pO2 81 L (83-108) mmHg ABG HCO3 13 L (21-25) mmol/L ABG Total CO2 15 L (19-24) mmol/L ABG O2 Saturation 90.5 L (94-97) % VBG pCO2 (37-51) mmHg VBG HCO3 (24-28) mmol/L Potassium (3.5-5.1) mmol/L Chloride (98-107) mmol/L Carbon Dioxide (22-30) mmol/L BUN (9-20) mg/dL Creatinine (0.66-1.25) mg/dL Glucose (74-99) mg/dL POC Glucose (mg/dL) (70-110) mg/dL Plasma Lactic Acid Rivas (0.7-2.0) mmol/L Calcium (8.4-10.2) mg/dL Urine Protein (Negative) Urine Glucose (UA) (Negative) Urine Blood (Negative) Urine Mucus (None) /hpf Microbiology - Last 24 Hours (Table) 07/04/22 08:00 Blood Culture - Preliminary Blood No Growth after 24 hours 07/04/22 08:00 Blood Culture - Preliminary Blood No Growth after 24 hours 07/01/22 11:46 Blood Culture - Preliminary Blood No Growth after 72 hours
--- NOTE | 2022-07-05 12:42 | P.PN ---
Progress Note - Text Progress Note Date: 07/05/22 Patient became hemodynamically unstable and was transferred to the ICU. He was intubated lined, and put on presors. Patient's son is present and pacing in the room. Loan Operations Manager did not enter the room to prevent upsetting the son. Patient seems to be actively dying. Spoke with RN, the son is very adamant that everything possible be done and for the patient remain a full code.Patient's daughter, Caprice, is due to arrive in town today from [place]. Will attempt to speak with and support Caprice when she arrives. Malu Spencer [facility] Palliative Care/Urology [employer] [phone] Email: [email or web address]
[2022-07-05 12:56] LABS: Hypochromasia Marked; MCH 32.5 pg (25.0-35.0); MCHC 30.9 g/dL (31.0-37.0); MCV 105.1 fL (80.0-100.0); Macrocytosis Moderate; Mean Platelet Volume 11.7; Platelet Count 146 k/uL (150-450); RBC 2.09 m/uL (4.30-5.90); RDW 14.5 % (11.5-15.5); WBC 5.8 k/uL (3.8-10.6)
[2022-07-05 13:01] LABS: Albumin 1.9 g/dL (3.5-5.0); Magnesium 2.3 mg/dL (1.6-2.3); Phosphorus 5.6 mg/dL (2.5-4.5); Potassium 5.6 mmol/L (3.5-5.1); Total Bilirubin 0.7 mg/dL (0.2-1.3); Total Protein 4.1 g/dL (6.3-8.2)
[2022-07-05 13:22] LABS: Calcium 5.8 mg/dL (8.4-10.2)
[2022-07-05 13:25] LABS: HGB 6.8 gm/dL (13.0-17.5)
[2022-07-05 13:34] LABS: Glucose,Whole Blood 250 mg/dL (70-110)
--- NOTE | 2022-07-05 14:07 | P.PN ---
Subjective Progress Note Date: 07/05/22 PROGRESS NOTE The patient was admitted to the hospital on June 24, he has a known history of CAD, post percutaneous revascularization history of cardiomyopathy, prostate cancer with metastasis. He was seen by Dr. Naranjo and subsequently by Dr. Dominguez. Earlier today he became unstable, hypotensive and tachypnea in addition to tachycardic in atrial fibrillation, requiring mechanical ventilation. He is intubated at this time, back in sinus mechanism on IV amiodarone and vasopressor. He is anemic. His past history is remarkable for diabetes, CAD, dementia and Parkinson disease. His son was adamant about having full code. He is in sinus mechanism at this time with single PACs and PVCs. There is no episodes of ventricular tachycardia. The patient had the acute lactic acidosis with possible sepsis and hypotension with worsening mental status. He has a sacral decubitus ulcer. Medications: Amiodarone, aspirin, Lovenox subcu, Mustapha-Synephrine PHYSICAL EXAMINATION: Blood pressure 90/40 heart rate 80, intubated, pale LUNGS: Clear to auscultation anteriorly HEART: Regular rate and rhythm, S1, S2. No S3. systolic ejection murmur ABDOMEN: Soft, nontender, no organomegaly EXTREMETIES: +1 edema with decreased pulses LAB: Hemoglobin 6.8, platelets 146. PH 7.08, pO2 81. BUN 72, creatinine 1.72. Potassium 5.6. Plasma lactic acid 10. EKG shows atrial fibrillation with left bundle branch block, the left bundle branch block was noted in the past and he has episode of paroxysmal atrial fibrillation past. IMPRESSION: 1. Multiorgan failure with respiratory failure and sepsis 2. Profound hypotension 3. Severe anemia 4. Worsening renal function 5. Paroxysmal atrial fibrillation 6. History of CAD 7. History of mild cardiomyopathy 8. Decubitus ulcer 9. Prostate cancer PLAN: 1. Continue IV amiodarone for now 2. Supportive care 3. Prognosis is very poor 4. I had a long discussion with the son regarding the poor prognosis and the limited options Objective - Vital Signs Vital signs: Vital Signs Temp 98.0 F 07/05/22 08:04 Pulse 70 07/05/22 12:15 Resp 28 H 07/05/22 11:00 BP 112/51 07/05/22 11:15 Pulse Ox 94 L 07/05/22 12:15 FiO2 100 07/05/22 12:00 Intake & Output 07/04/22 07/05/22 07/05/22 18:59 06:59 18:59 Intake Total 125 0 4722.878 Output Total 300 225 0 Balance -175 -225 4722.878 Weight 59 kg 59 kg Intake: IV 4300 Dextrose 5% in Water 1, 300 000 ml @ 150 mls/hr IV . Q7H40M SHANELL with Sodium Bicarb (1 Meq/ml) 150 ml Rx#:[id number] Sodium Chloride 0.9% 1, 4000 000 ml @ 999 mls/hr IV . Q1H1M ONE Rx#:[id number] Intake, IV Titration 125 422.878 Amount Diltiazem 125 mg In 125 Sodium Chloride 0.9% 100 ml @ 10 MG/HR 10 mls/hr IV .[id number] SHANELL Rx#: [id number] Norepinephrine 4 mg In 153.420 Sodium Chloride 0.9% 250 ml @ 0.03 MCG/KG/MIN 6. 744 mls/hr IV .Q24H SHANELL Rx#:[id number] Phenylephrine 40 mg In 254.000 Sodium Chloride 0.9% 250 ml @ 1 MCG/KG/MIN 22.479 mls/hr IV .[id number] SHANELL Rx #:[id number] propofoL 1,000 mg In 15.458 Empty Bag 1 bag @ 15 MCG/ KG/MIN 5.31 mls/hr IV . [id number] SHANELL Rx#:[id number] Oral 0 Tube Feeding 0 Output: Urine 300 225 0 Other: Voiding Method Indwelling Catheter Indwelling Catheter ABP, PAP, CO, CI - Last Documented Arterial Blood Pressure 91/39 - Labs CBC & Chem 7: 07/05/22 08:51 07/05/22 08:51 Labs: Abnormal Lab Results - Last 24 Hours (Table) 07/04/22 07/04/22 07/04/22 Range/Units 16:22 18:16 18:16 RBC (4.30-5.90) m/uL Hgb (13.0-17.5) gm/dL Hct (39.0-53.0) % MCV (80.0-100.0) fL MCHC (31.0-37.0) g/dL Plt Count (150-450) k/uL Lymphocytes # (Manual) (1.0-4.8) k/uL Metamyelocytes # (Man) (0) k/uL Myelocytes # (Manual) (0) k/uL ABG pH (7.35-7.45) ABG pO2 (83-108) mmHg ABG HCO3 (21-25) mmol/L ABG Total CO2 (19-24) mmol/L ABG O2 Saturation (94-97) % VBG pCO2 (37-51) mmHg VBG HCO3 (24-28) mmol/L Potassium (3.5-5.1) mmol/L Chloride (98-107) mmol/L Carbon Dioxide 18 L (22-30) mmol/L BUN 72 H (9-20) mg/dL Creatinine 1.33 H (0.66-1.25) mg/dL Glucose 277 H (74-99) mg/dL POC Glucose (mg/dL) 309 H (70-110) mg/dL Plasma Lactic Acid Rivas 5.4 H* (0.7-2.0) mmol/L Calcium 6.7 L (8.4-10.2) mg/dL Phosphorus (2.5-4.5) mg/dL AST (17-59) U/L ALT (4-49) U/L Alkaline Phosphatase (38-126) U/L Total Protein (6.3-8.2) g/dL Albumin (3.5-5.0) g/dL 07/04/22 07/04/22 07/04/22 Range/Units 18:16 21:14 22:48 RBC (4.30-5.90) m/uL Hgb (13.0-17.5) gm/dL Hct (39.0-53.0) % MCV (80.0-100.0) fL MCHC (31.0-37.0) g/dL Plt Count (150-450) k/uL Lymphocytes # (Manual) (1.0-4.8) k/uL Metamyelocytes # (Man) (0) k/uL Myelocytes # (Manual) (0) k/uL ABG pH (7.35-7.45) ABG pO2 (83-108) mmHg ABG HCO3 (21-25) mmol/L ABG Total CO2 (19-24) mmol/L ABG O2 Saturation (94-97) % VBG pCO2 33 L (37-51) mmHg VBG HCO3 21 L (24-28) mmol/L Potassium (3.5-5.1) mmol/L Chloride (98-107) mmol/L Carbon Dioxide (22-30) mmol/L BUN (9-20) mg/dL Creatinine (0.66-1.25) mg/dL Glucose (74-99) mg/dL POC Glucose (mg/dL) 213 H (70-110) mg/dL Plasma Lactic Acid Rivas 4.8 H* (0.7-2.0) mmol/L Calcium (8.4-10.2) mg/dL Phosphorus (2.5-4.5) mg/dL AST (17-59) U/L ALT (4-49) U/L Alkaline Phosphatase (38-126) U/L Total Protein (6.3-8.2) g/dL Albumin (3.5-5.0) g/dL 07/05/22 07/05/22 07/05/22 Range/Units 00:47 04:43 06:42 RBC (4.30-5.90) m/uL Hgb (13.0-17.5) gm/dL Hct (39.0-53.0) % MCV (80.0-100.0) fL MCHC (31.0-37.0) g/dL Plt Count (150-450) k/uL Lymphocytes # (Manual) (1.0-4.8) k/uL Metamyelocytes # (Man) (0) k/uL Myelocytes # (Manual) (0) k/uL ABG pH (7.35-7.45) ABG pO2 (83-108) mmHg ABG HCO3 (21-25) mmol/L ABG Total CO2 (19-24) mmol/L ABG O2 Saturation (94-97) % VBG pCO2 (37-51) mmHg VBG HCO3 (24-28) mmol/L Potassium (3.5-5.1) mmol/L Chloride (98-107) mmol/L Carbon Dioxide (22-30) mmol/L BUN (9-20) mg/dL Creatinine (0.66-1.25) mg/dL Glucose (74-99) mg/dL POC Glucose (mg/dL) 263 H (70-110) mg/dL Plasma Lactic Acid Rivas 4.0 H* 8.0 H* (0.7-2.0) mmol/L Calcium (8.4-10.2) mg/dL Phosphorus (2.5-4.5) mg/dL AST (17-59) U/L ALT (4-49) U/L Alkaline Phosphatase (38-126) U/L Total Protein (6.3-8.2) g/dL Albumin (3.5-5.0) g/dL 07/05/22 07/05/22 07/05/22 Range/Units 08:10 08:13 08:13 RBC 2.37 L (4.30-5.90) m/uL Hgb 7.2 L (13.0-17.5) gm/dL Hct 23.7 L (39.0-53.0) % MCV 100.2 H (80.0-100.0) fL MCHC 30.5 L (31.0-37.0) g/dL Plt Count 123 L (150-450) k/uL Lymphocytes # (Manual) 0.72 L (1.0-4.8) k/uL Metamyelocytes # (Man) 0.22 H (0) k/uL Myelocytes # (Manual) 0.06 H (0) k/uL ABG pH (7.35-7.45) ABG pO2 (83-108) mmHg ABG HCO3 (21-25) mmol/L ABG Total CO2 (19-24) mmol/L ABG O2 Saturation (94-97) % VBG pCO2 (37-51) mmHg VBG HCO3 (24-28) mmol/L Potassium 5.8 H (3.5-5.1) mmol/L Chloride 108 H (98-107) mmol/L Carbon Dioxide 15 L (22-30) mmol/L BUN 77 H (9-20) mg/dL Creatinine 1.73 H (0.66-1.25) mg/dL Glucose 241 H (74-99) mg/dL POC Glucose (mg/dL) 262 H (70-110) mg/dL Plasma Lactic Acid Rivas (0.7-2.0) mmol/L Calcium 6.1 L* (8.4-10.2) mg/dL Phosphorus (2.5-4.5) mg/dL AST (17-59) U/L ALT (4-49) U/L Alkaline Phosphatase (38-126) U/L Total Protein (6.3-8.2) g/dL Albumin (3.5-5.0) g/dL 07/05/22 07/05/22 07/05/22 Range/Units 08:13 08:13 08:51 RBC 2.09 L (4.30-5.90) m/uL Hgb 6.8 L* (13.0-17.5) gm/dL Hct 22.0 L (39.0-53.0) % MCV 105.1 H (80.0-100.0) fL MCHC 30.9 L (31.0-37.0) g/dL Plt Count 146 L (150-450) k/uL Lymphocytes # (Manual) (1.0-4.8) k/uL Metamyelocytes # (Man) (0) k/uL Myelocytes # (Manual) (0) k/uL ABG pH (7.35-7.45) ABG pO2 (83-108) mmHg ABG HCO3 (21-25) mmol/L ABG Total CO2 (19-24) mmol/L ABG O2 Saturation (94-97) % VBG pCO2 19 L (37-51) mmHg VBG HCO3 12 L (24-28) mmol/L Potassium (3.5-5.1) mmol/L Chloride (98-107) mmol/L Carbon Dioxide (22-30) mmol/L BUN (9-20) mg/dL Creatinine (0.66-1.25) mg/dL Glucose (74-99) mg/dL POC Glucose (mg/dL) (70-110) mg/dL Plasma Lactic Acid Rivas 10.0 H* (0.7-2.0) mmol/L Calcium (8.4-10.2) mg/dL Phosphorus (2.5-4.5) mg/dL AST (17-59) U/L ALT (4-49) U/L Alkaline Phosphatase (38-126) U/L Total Protein (6.3-8.2) g/dL Albumin (3.5-5.0) g/dL 07/05/22 07/05/22 07/05/22 Range/Units 08:51 10:09 13:32 RBC (4.30-5.90) m/uL Hgb (13.0-17.5) gm/dL Hct (39.0-53.0) % MCV (80.0-100.0) fL MCHC (31.0-37.0) g/dL Plt Count (150-450) k/uL Lymphocytes # (Manual) (1.0-4.8) k/uL Metamyelocytes # (Man) (0) k/uL Myelocytes # (Manual) (0) k/uL ABG pH 7.08 L* (7.35-7.45) ABG pO2 81 L (83-108) mmHg ABG HCO3 13 L (21-25) mmol/L ABG Total CO2 15 L (19-24) mmol/L ABG O2 Saturation 90.5 L (94-97) % VBG pCO2 (37-51) mmHg VBG HCO3 (24-28) mmol/L Potassium 5.6 H (3.5-5.1) mmol/L Chloride 110 H (98-107) mmol/L Carbon Dioxide 14 L (22-30) mmol/L BUN 72 H (9-20) mg/dL Creatinine 1.72 H (0.66-1.25) mg/dL Glucose 219 H (74-99) mg/dL POC Glucose (mg/dL) 250 H (70-110) mg/dL Plasma Lactic Acid Rivas (0.7-2.0) mmol/L Calcium 5.8 L* (8.4-10.2) mg/dL Phosphorus 5.6 H (2.5-4.5) mg/dL AST 486 H (17-59) U/L ALT 50 H (4-49) U/L Alkaline Phosphatase 152 H (38-126) U/L Total Protein 4.1 L (6.3-8.2) g/dL Albumin 1.9 L (3.5-5.0) g/dL Microbiology - Last 24 Hours (Table) 07/04/22 08:00 Blood Culture - Preliminary Blood No Growth after 24 hours 07/04/22 08:00 Blood Culture - Preliminary Blood No Growth after 24 hours 07/01/22 11:46 Blood Culture - Preliminary Blood No Growth after 72 hours
[2022-07-05 14:16] LABS: Band Neutrophils % 10 %; Lymphocytes # (M) 0.81 k/uL (1.0-4.8); Metamyelocytes # (M) 0.23 k/uL (0); Metamyelocytes % 4 %; Monocytes # (M) 0.29 k/uL (0-1.0); Myelocytes # (M) 0.12 k/uL (0); Myelocytes % 2 %; Neutrophils % (M) 67 %; Nucleated Red Blood Cells 0 /100 WBC (0-0); Total Cells Counted 200
[2022-07-05 14:19] LABS: Polychromasia Present
[2022-07-05 14:21] LABS: Crenated RBC Present
[2022-07-05] MEDS: ENOXAPARIN 40 MG/0.4 ML SYRINGE SQ SCH (15:27)
[2022-07-05 17:05] LABS: Glucose,Whole Blood 191 mg/dL (70-110)
[2022-07-05] MEDS: SODIUM CHLORIDE 0.9% IV SCH ×2 (17:07→21:16)
[2022-07-05] MEDS: PHENYLEPHRINE IV SCH ×2 (17:07→21:16)
[2022-07-05 20:07] LABS: Glucose,Whole Blood 286 mg/dL (70-110)
[2022-07-05] MEDS: NON FORMULARY DRUG (Enzalutamide [Xtandi] 40 MG Capsule) PO SCH (20:44)
[2022-07-05 21:06] LABS: ABG Base Excess -17.4 mmol/L; ABG HCO3 12 mmol/L (21-25); ABG Oxygen Saturation 95.7 % (94-97); ABG PCO2 34 mmHg (35-45); ABG PO2 94 mmHg (83-108); ABG TCO2 13 mmol/L (19-24); Allen Test Performed? Yes
[2022-07-05 21:11] LABS: ABG PH 7.15 (7.35-7.45)
[2022-07-05 21:17] LABS: Hypochromasia Marked; MCH 31.8 pg (25.0-35.0); MCHC 30.8 g/dL (31.0-37.0); MCV 103.2 fL (80.0-100.0); Macrocytosis Slight; Mean Platelet Volume 12.9; Platelet Count 172 k/uL (150-450); RBC 2.71 m/uL (4.30-5.90); RDW 14.9 % (11.5-15.5); WBC 10.5 k/uL (3.8-10.6)
[2022-07-05 21:19] LABS: HGB 8.6 gm/dL (13.0-17.5)
[2022-07-05 21:45] LABS: Calcium 6.6 mg/dL (8.4-10.2); Potassium 5.1 mmol/L (3.5-5.1); Total Bilirubin 1.4 mg/dL (0.2-1.3); Total Protein 4.3 g/dL (6.3-8.2)
[2022-07-05] MEDS: VASOPRESSIN 60 UNIT in SODIUM CHLORIDE 0.9% 150 ML IV SCH (22:43)
[2022-07-05] MEDS: NOREPINEPHRINE 8 MG in SODIUM CHLORIDE 0.9% 250 ML IV SCH (22:46)
[2022-07-06 00:07] LABS: Glucose,Whole Blood 327 mg/dL (70-110)
[2022-07-06] MEDS: INSULIN ASPART (NovoLOG) 100 UNIT/ML VIAL SQ SCH ×2 (00:37→10:56)
[2022-07-06] MEDS ORDERED: INSULIN ASPART (NovoLOG) 100 UNIT/ML VIAL SQ ONE (00:56)
[2022-07-06] MEDS: DEXTROSE 5% IN WATER 1,000 ML with SODIUM BICARB (1 MEQ/ML) 150 ML IV SCH ×3 (01:44→18:08)
[2022-07-06] MEDS ORDERED: DEXTROSE 5% IN WATER 100 ML with AMIODARONE 150 MG IV ONE (02:48)
[2022-07-06] MEDS ORDERED: DEXTROSE 5% IN WATER 100 ML with AMIODARONE 300 MG IV ONE (02:58)
[2022-07-06 04:15] LABS: Glucose,Whole Blood 404 mg/dL (70-110)
[2022-07-06] MEDS ORDERED: DEXTROSE 50% SYRINGE 50 ML IVP PRN ×2 (04:16)
[2022-07-06] MEDS: PIPERACILLIN-TAZOBACTAM 3.375 GM in SODIUM CHLORIDE 0.9% 100 ML IVPB SCH ×3 (04:22→20:34)
[2022-07-06] MEDS: INSULIN REGULAR 100 UNIT in SODIUM CHLORIDE 0.9% 100 ML IV SCH ×4 (04:31→23:00)
[2022-07-06 04:41] LABS: HGB 8.2 gm/dL (13.0-17.5); Hypochromasia Moderate; MCHC 31.7 g/dL (31.0-37.0); MCV 97.8 fL (80.0-100.0); Macrocytosis Slight; Platelet Count 143 k/uL (150-450); Poikilocytosis Slight; RBC 2.66 m/uL (4.30-5.90); RDW 15.7 % (11.5-15.5); WBC 8.7 k/uL (3.8-10.6)
[2022-07-06 04:52] LABS: Magnesium 2.2 mg/dL (1.6-2.3)
[2022-07-06 05:04] LABS: Glucose,Whole Blood 421 mg/dL (70-110)
[2022-07-06 05:22] LABS: Band Neutrophils % 14 %; Lymphocytes # (M) 0.78 k/uL (1.0-4.8); Metamyelocytes # (M) 0.44 k/uL (0); Metamyelocytes % 5 %; Monocytes # (M) 0.17 k/uL (0-1.0); Myelocytes # (M) 0.09 k/uL (0); Myelocytes % 1 %; Neutrophils % (M) 70 %; Nucleated Red Blood Cells 0 /100 WBC (0-0); Total Cells Counted 200
[2022-07-06 05:23] LABS: Dohle Bodies Present; Large Platelets Present; Toxic Granulation Present; Toxic Vacuolation Present
[2022-07-06 05:46] LABS: ABG Base Excess -4.8 mmol/L; ABG HCO3 20 mmol/L (21-25); ABG Oxygen Saturation 97.1 % (94-97); ABG PCO2 34 mmHg (35-45); ABG PH 7.38 (7.35-7.45); ABG PO2 86 mmHg (83-108); ABG TCO2 21 mmol/L (19-24)
[2022-07-06] MEDS ORDERED: AMIODARONE 360 MG in DEXTROSE 5% IN WATER 200 ML IV ONE ×6 (05:55→23:52)
[2022-07-06 05:58] LABS: Glucose,Whole Blood 421 mg/dL (70-110)
[2022-07-06] MEDS ORDERED: CALCIUM GLUCONATE IN NACL 2 GM in SALINE 1 100ML.BAG IVPB ONE (05:59)
[2022-07-06 06:49] LABS: Glucose,Whole Blood 401 mg/dL (70-110)
[2022-07-06] MEDS: CARBIDOPA-LEVODOPA 25-100 MG 1 EACH TAB PO SCH ×4 (06:55→22:23)
--- NOTE | 2022-07-06 07:13 | P.PN ---
Subjective Progress Note Date: 07/06/22 PROGRESS NOTE The patient was admitted to the hospital on June 24, he has a known history of CAD, post percutaneous revascularization history of cardiomyopathy, prostate cancer with metastasis. He was seen by Dr. Naranjo and subsequently by Dr. Dominguez. Earlier today he became unstable, hypotensive and tachypnea in addition to tachycardic in atrial fibrillation, requiring mechanical ventilation. He is intubated at this time, back in sinus mechanism on IV amiodarone and vasopressor. He is anemic. His past history is remarkable for diabetes, CAD, dementia and Parkinson disease. His son was adamant about having full code. He is in sinus mechanism at this time with single PACs and PVCs. There is no episodes of ventricular tachycardia. The patient had the acute lactic acidosis with possible sepsis and hypotension with worsening mental status. He has a sacral decubitus ulcer. July 06: The patient remains intubated with episodes of paroxysmal atrial fibrillation, hypotensive when he is in atrial fibrillation he rated he continues to be on IV amiodarone, received an additional bolus during the night. His urine output has been poor. He is on norepinephrine and vasopressin. There is no evidence of ventricular ectopic activity. Requiring large amount of vasopressors to maintain blood pressure. Medications: Amiodarone, aspirin, Lovenox subcu, norepinephrine, vasopressin, Zosyn, v ancomycin PHYSICAL EXAMINATION: Blood pressure ranging between 120 and 90 heart rate ranging between 90 and 140 depending if he is in atrial fibrillation, intubated, pale LUNGS: Clear to auscultation anteriorly HEART: Regular rate and rhythm, S1, S2. No S3. systolic ejection murmur ABDOMEN: Soft, no organomegaly, positive bowel sounds EXTREMETIES: +1 edema with decreased pulses LAB: Hemoglobin 8.2, white blood cell 8.7. BUN 85, creatinine 2.28, potassium 5.0. Calcium 6. IMPRESSION: 1. Multiorgan failure with respiratory failure and sepsis 2. Profound hypotension 3. Severe anemia 4. Worsening renal function 5. Paroxysmal atrial fibrillation 6. History of CAD 7. History of mild cardiomyopathy 8. Decubitus ulcer 9. Prostate cancer PLAN: 1. Continue IV amiodarone for now 2. IV Lopressor as needed control blood pressure 3. Prognosis is very poor, discussed with son in detail in view of multiorgan failure and overall status. Objective - Vital Signs Vital signs: Vital Signs Temp 98.8 F 07/06/22 04:00 Pulse 149 H 07/06/22 07:00 Resp 28 H 07/06/22 07:00 BP 118/57 07/06/22 05:15 Pulse Ox 93 L 07/06/22 07:00 FiO2 50 07/06/22 07:00 Intake & Output 07/05/22 07/06/22 07/06/22 18:59 06:59 18:59 Intake Total 6451.878 3029.510 195 Output Total 322 20 0 Balance 6129.878 3009.510 195 Weight 59 kg 67.9 kg Intake: IV 5300 1875 150 Dextrose 5% in Water 1, 1200 1800 150 000 ml @ 150 mls/hr IV . Q7H40M [facility] with Sodium Bicarb (1 Meq/ml) 150 ml Rx#:[id number] Piperacillin-Tazobactam 3 100 75 .375 gm In Sodium Chloride 0.9% 100 ml @ 25 mls/hr IVPB Q8H [facility] Rx#: [id number] Sodium Chloride 0.9% 1, 4000 000 ml @ 999 mls/hr IV . Q1H1M [facility] Rx#:[id number] Intake, IV Titration 676.878 524.510 Amount Insulin Regular 100 unit 19.734 In Sodium Chloride 0.9% 100 ml @ Titrate IV .Q0M [facility] Rx#:[id number] Norepinephrine 4 mg In 153.420 Sodium Chloride 0.9% 250 ml @ 0.03 MCG/KG/MIN 6. 744 mls/hr IV .Q24H [facility] Rx#:[id number] Norepinephrine 8 mg In 59.196 Sodium Chloride 0.9% 250 ml @ 0.03 MCG/KG/MIN 3. 425 mls/hr IV .Q24H [facility] Rx#:[id number] Phenylephrine 100 mg In 408.351 Sodium Chloride 0.9% 250 ml @ 6 MCG/KG/MIN 53.1 mls/hr IV .Q4H43M [facility] Rx# :[id number] Phenylephrine 40 mg In 508.000 Sodium Chloride 0.9% 250 ml @ 1 MCG/KG/MIN 22.479 mls/hr IV .[id number] [facility] Rx #:[id number] propofoL 1,000 mg In 15.458 37.229 Empty Bag 1 bag @ 15 MCG/ KG/MIN 5.31 mls/hr IV . [id number] [facility] Rx#:[id number] Tube Feeding 135 540 45 Blood Product 310 Rc As-1 Unit 310 [id number] Other 30 90 Output: Gastric Drainage 275 Urine 47 20 0 Other: Voiding Method Indwelling Catheter Indwelling Catheter ABP, PAP, CO, CI - Last Documented Arterial Blood Pressure 94/39 - Labs CBC & Chem 7: 07/06/22 04:10 07/06/22 04:10 Labs: Abnormal Lab Results - Last 24 Hours (Table) 07/05/22 07/05/22 07/05/22 Range/Units 08:10 08:13 08:13 RBC 2.37 L (4.30-5.90) m/uL Hgb 7.2 L (13.0-17.5) gm/dL Hct 23.7 L (39.0-53.0) % MCV 100.2 H (80.0-100.0) fL MCHC 30.5 L (31.0-37.0) g/dL RDW (11.5-15.5) % Plt Count 123 L (150-450) k/uL Lymphocytes # (Manual) 0.72 L (1.0-4.8) k/uL Metamyelocytes # (Man) 0.22 H (0) k/uL Myelocytes # (Manual) 0.06 H (0) k/uL ABG pH (7.35-7.45) ABG pCO2 (35-45) mmHg ABG pO2 (83-108) mmHg ABG HCO3 (21-25) mmol/L ABG Total CO2 (19-24) mmol/L ABG O2 Saturation (94-97) % VBG pCO2 (37-51) mmHg VBG HCO3 (24-28) mmol/L Potassium 5.8 H (3.5-5.1) mmol/L Chloride 108 H (98-107) mmol/L Carbon Dioxide 15 L (22-30) mmol/L BUN 77 H (9-20) mg/dL Creatinine 1.73 H (0.66-1.25) mg/dL Glucose 241 H (74-99) mg/dL POC Glucose (mg/dL) 262 H (70-110) mg/dL Plasma Lactic Acid Rivas (0.7-2.0) mmol/L Calcium 6.1 L* (8.4-10.2) mg/dL Ionized Calcium Li (4.5-5.3) mg/dL Phosphorus (2.5-4.5) mg/dL Total Bilirubin (0.2-1.3) mg/dL AST (17-59) U/L ALT (4-49) U/L Alkaline Phosphatase (38-126) U/L Total Protein (6.3-8.2) g/dL Albumin (3.5-5.0) g/dL Procalcitonin (0.02-0.09) ng/mL Crossmatch 07/05/22 07/05/22 07/05/22 Range/Units 08:13 08:13 08:51 RBC 2.09 L (4.30-5.90) m/uL Hgb 6.8 L* (13.0-17.5) gm/dL Hct 22.0 L (39.0-53.0) % MCV 105.1 H (80.0-100.0) fL MCHC 30.9 L (31.0-37.0) g/dL RDW (11.5-15.5) % Plt Count 146 L (150-450) k/uL Lymphocytes # (Manual) 0.81 L (1.0-4.8) k/uL Metamyelocytes # (Man) 0.23 H (0) k/uL Myelocytes # (Manual) 0.12 H (0) k/uL ABG pH (7.35-7.45) ABG pCO2 (35-45) mmHg ABG pO2 (83-108) mmHg ABG HCO3 (21-25) mmol/L ABG Total CO2 (19-24) mmol/L ABG O2 Saturation (94-97) % VBG pCO2 19 L (37-51) mmHg VBG HCO3 12 L (24-28) mmol/L Potassium (3.5-5.1) mmol/L Chloride (98-107) mmol/L Carbon Dioxide (22-30) mmol/L BUN (9-20) mg/dL Creatinine (0.66-1.25) mg/dL Glucose (74-99) mg/dL POC Glucose (mg/dL) (70-110) mg/dL Plasma Lactic Acid Rivas 10.0 H* (0.7-2.0) mmol/L Calcium (8.4-10.2) mg/dL Ionized Calcium Li (4.5-5.3) mg/dL Phosphorus (2.5-4.5) mg/dL Total Bilirubin (0.2-1.3) mg/dL AST (17-59) U/L ALT (4-49) U/L Alkaline Phosphatase (38-126) U/L Total Protein (6.3-8.2) g/dL Albumin (3.5-5.0) g/dL Procalcitonin (0.02-0.09) ng/mL Crossmatch 07/05/22 07/05/22 07/05/22 Range/Units 08:51 08:51 10:09 RBC (4.30-5.90) m/uL Hgb (13.0-17.5) gm/dL Hct (39.0-53.0) % MCV (80.0-100.0) fL MCHC (31.0-37.0) g/dL RDW (11.5-15.5) % Plt Count (150-450) k/uL Lymphocytes # (Manual) (1.0-4.8) k/uL Metamyelocytes # (Man) (0) k/uL Myelocytes # (Manual) (0) k/uL ABG pH 7.08 L* (7.35-7.45) ABG pCO2 (35-45) mmHg ABG pO2 81 L (83-108) mmHg ABG HCO3 13 L (21-25) mmol/L ABG Total CO2 15 L (19-24) mmol/L ABG O2 Saturation 90.5 L (94-97) % VBG pCO2 (37-51) mmHg VBG HCO3 (24-28) mmol/L Potassium 5.6 H (3.5-5.1) mmol/L Chloride 110 H (98-107) mmol/L Carbon Dioxide 14 L (22-30) mmol/L BUN 72 H (9-20) mg/dL Creatinine 1.72 H (0.66-1.25) mg/dL Glucose 219 H (74-99) mg/dL POC Glucose (mg/dL) (70-110) mg/dL Plasma Lactic Acid Rivas (0.7-2.0) mmol/L Calcium 5.8 L* (8.4-10.2) mg/dL Ionized Calcium Li (4.5-5.3) mg/dL Phosphorus 5.6 H (2.5-4.5) mg/dL Total Bilirubin (0.2-1.3) mg/dL AST 486 H (17-59) U/L ALT 50 H (4-49) U/L Alkaline Phosphatase 152 H (38-126) U/L Total Protein 4.1 L (6.3-8.2) g/dL Albumin 1.9 L (3.5-5.0) g/dL Procalcitonin 9.92 H (0.02-0.09) ng/mL Crossmatch 07/05/22 07/05/22 07/05/22 Range/Units 13:32 15:17 17:02 RBC (4.30-5.90) m/uL Hgb (13.0-17.5) gm/dL Hct (39.0-53.0) % MCV (80.0-100.0) fL MCHC (31.0-37.0) g/dL RDW (11.5-15.5) % Plt Count (150-450) k/uL Lymphocytes # (Manual) (1.0-4.8) k/uL Metamyelocytes # (Man) (0) k/uL Myelocytes # (Manual) (0) k/uL ABG pH (7.35-7.45) ABG pCO2 (35-45) mmHg ABG pO2 (83-108) mmHg ABG HCO3 (21-25) mmol/L ABG Total CO2 (19-24) mmol/L ABG O2 Saturation (94-97) % VBG pCO2 (37-51) mmHg VBG HCO3 (24-28) mmol/L Potassium (3.5-5.1) mmol/L Chloride (98-107) mmol/L Carbon Dioxide (22-30) mmol/L BUN (9-20) mg/dL Creatinine (0.66-1.25) mg/dL Glucose (74-99) mg/dL POC Glucose (mg/dL) 250 H 191 H (70-110) mg/dL Plasma Lactic Acid Rivas (0.7-2.0) mmol/L Calcium (8.4-10.2) mg/dL Ionized Calcium Li (4.5-5.3) mg/dL Phosphorus (2.5-4.5) mg/dL Total Bilirubin (0.2-1.3) mg/dL AST (17-59) U/L ALT (4-49) U/L Alkaline Phosphatase (38-126) U/L Total Protein (6.3-8.2) g/dL Albumin (3.5-5.0) g/dL Procalcitonin (0.02-0.09) ng/mL Crossmatch See Detail 07/05/22 07/05/22 07/05/22 Range/Units 20:06 21:02 21:05 RBC (4.30-5.90) m/uL Hgb (13.0-17.5) gm/dL Hct (39.0-53.0) % MCV (80.0-100.0) fL MCHC (31.0-37.0) g/dL RDW (11.5-15.5) % Plt Count (150-450) k/uL Lymphocytes # (Manual) (1.0-4.8) k/uL Metamyelocytes # (Man) (0) k/uL Myelocytes # (Manual) (0) k/uL ABG pH 7.15 L* (7.35-7.45) ABG pCO2 34 L (35-45) mmHg ABG pO2 (83-108) mmHg ABG HCO3 12 L (21-25) mmol/L ABG Total CO2 13 L (19-24) mmol/L ABG O2 Saturation (94-97) % VBG pCO2 (37-51) mmHg VBG HCO3 (24-28) mmol/L Potassium (3.5-5.1) mmol/L Chloride (98-107) mmol/L Carbon Dioxide (22-30) mmol/L BUN (9-20) mg/dL Creatinine (0.66-1.25) mg/dL Glucose (74-99) mg/dL POC Glucose (mg/dL) 286 H (70-110) mg/dL Plasma Lactic Acid Irvas (0.7-2.0) mmol/L Calcium (8.4-10.2) mg/dL Ionized Calcium Li 3.9 L (4.5-5.3) mg/dL Phosphorus (2.5-4.5) mg/dL Total Bilirubin (0.2-1.3) mg/dL AST (17-59) U/L ALT (4-49) U/L Alkaline Phosphatase (38-126) U/L Total Protein (6.3-8.2) g/dL Albumin (3.5-5.0) g/dL Procalcitonin (0.02-0.09) ng/mL Crossmatch 07/05/22 07/05/22 07/06/22 Range/Units 21:05 21:05 00:05 RBC 2.71 L (4.30-5.90) m/uL Hgb 8.6 L D (13.0-17.5) gm/dL Hct 28.0 L (39.0-53.0) % MCV 103.2 H (80.0-100.0) fL MCHC 30.8 L (31.0-37.0) g/dL RDW (11.5-15.5) % Plt Count (150-450) k/uL Lymphocytes # (Manual) (1.0-4.8) k/uL Metamyelocytes # (Man) (0) k/uL Myelocytes # (Manual) (0) k/uL ABG pH (7.35-7.45) ABG pCO2 (35-45) mmHg ABG pO2 (83-108) mmHg ABG HCO3 (21-25) mmol/L ABG Total CO2 (19-24) mmol/L ABG O2 Saturation (94-97) % VBG pCO2 (37-51) mmHg VBG HCO3 (24-28) mmol/L Potassium (3.5-5.1) mmol/L Chloride (98-107) mmol/L Carbon Dioxide 11 L (22-30) mmol/L BUN 72 H (9-20) mg/dL Creatinine 2.22 H (0.66-1.25) mg/dL Glucose 281 H (74-99) mg/dL POC Glucose (mg/dL) 327 H (70-110) mg/dL Plasma Lactic Acid Rivas (0.7-2.0) mmol/L Calcium 6.6 L (8.4-10.2) mg/dL Ionized Calcium Li (4.5-5.3) mg/dL Phosphorus (2.5-4.5) mg/dL Total Bilirubin 1.4 H (0.2-1.3) mg/dL AST 4668 H (17-59) U/L ALT 155 H (4-49) U/L Alkaline Phosphatase 170 H (38-126) U/L Total Protein 4.3 L (6.3-8.2) g/dL Albumin 2.0 L (3.5-5.0) g/dL Procalcitonin (0.02-0.09) ng/mL Crossmatch 07/06/22 07/06/22 07/06/22 Range/Units 04:10 04:10 04:13 RBC 2.66 L (4.30-5.90) m/uL Hgb 8.2 L (13.0-17.5) gm/dL Hct 26.0 L (39.0-53.0) % MCV (80.0-100.0) fL MCHC (31.0-37.0) g/dL RDW 15.7 H (11.5-15.5) % Plt Count 143 L (150-450) k/uL Lymphocytes # (Manual) 0.78 L (1.0-4.8) k/uL Metamyelocytes # (Man) 0.44 H (0) k/uL Myelocytes # (Manual) 0.09 H (0) k/uL ABG pH (7.35-7.45) ABG pCO2 (35-45) mmHg ABG pO2 (83-108) mmHg ABG HCO3 (21-25) mmol/L ABG Total CO2 (19-24) mmol/L ABG O2 Saturation (94-97) % VBG pCO2 (37-51) mmHg VBG HCO3 (24-28) mmol/L Potassium (3.5-5.1) mmol/L Chloride (98-107) mmol/L Carbon Dioxide 19 L (22-30) mmol/L BUN 85 H (9-20) mg/dL Creatinine 2.28 H (0.66-1.25) mg/dL Glucose 368 H (74-99) mg/dL POC Glucose (mg/dL) 404 H (70-110) mg/dL Plasma Lactic Acid Rivas (0.7-2.0) mmol/L Calcium 6.0 L* (8.4-10.2) mg/dL Ionized Calcium Li (4.5-5.3) mg/dL Phosphorus (2.5-4.5) mg/dL Total Bilirubin (0.2-1.3) mg/dL AST (17-59) U/L ALT (4-49) U/L Alkaline Phosphatase (38-126) U/L Total Protein (6.3-8.2) g/dL Albumin (3.5-5.0) g/dL Procalcitonin (0.02-0.09) ng/mL Crossmatch 07/06/22 07/06/22 07/06/22 Range/Units 05:01 05:02 05:42 RBC (4.30-5.90) m/uL Hgb (13.0-17.5) gm/dL Hct (39.0-53.0) % MCV (80.0-100.0) fL MCHC (31.0-37.0) g/dL RDW (11.5-15.5) % Plt Count (150-450) k/uL Lymphocytes # (Manual) (1.0-4.8) k/uL Metamyelocytes # (Man) (0) k/uL Myelocytes # (Manual) (0) k/uL ABG pH (7.35-7.45) ABG pCO2 34 L (35-45) mmHg ABG pO2 (83-108) mmHg ABG HCO3 20 L (21-25) mmol/L ABG Total CO2 (19-24) mmol/L ABG O2 Saturation 97.1 H (94-97) % VBG pCO2 (37-51) mmHg VBG HCO3 (24-28) mmol/L Potassium (3.5-5.1) mmol/L Chloride (98-107) mmol/L Carbon Dioxide (22-30) mmol/L BUN (9-20) mg/dL Creatinine (0.66-1.25) mg/dL Glucose (74-99) mg/dL POC Glucose (mg/dL) 421 H (70-110) mg/dL Plasma Lactic Acid Rivas (0.7-2.0) mmol/L Calcium (8.4-10.2) mg/dL Ionized Calcium Li 3.6 L (4.5-5.3) mg/dL Phosphorus (2.5-4.5) mg/dL Total Bilirubin (0.2-1.3) mg/dL AST (17-59) U/L ALT (4-49) U/L Alkaline Phosphatase (38-126) U/L Total Protein (6.3-8.2) g/dL Albumin (3.5-5.0) g/dL Procalcitonin (0.02-0.09) ng/mL Crossmatch 07/06/22 07/06/22 Range/Units 05:57 06:48 RBC (4.30-5.90) m/uL Hgb (13.0-17.5) gm/dL Hct (39.0-53.0) % MCV (80.0-100.0) fL MCHC (31.0-37.0) g/dL RDW (11.5-15.5) % Plt Count (150-450) k/uL Lymphocytes # (Manual) (1.0-4.8) k/uL Metamyelocytes # (Man) (0) k/uL Myelocytes # (Manual) (0) k/uL ABG pH (7.35-7.45) ABG pCO2 (35-45) mmHg ABG pO2 (83-108) mmHg ABG HCO3 (21-25) mmol/L ABG Total CO2 (19-24) mmol/L ABG O2 Saturation (94-97) % VBG pCO2 (37-51) mmHg VBG HCO3 (24-28) mmol/L Potassium (3.5-5.1) mmol/L Chloride (98-107) mmol/L Carbon Dioxide (22-30) mmol/L BUN (9-20) mg/dL Creatinine (0.66-1.25) mg/dL Glucose (74-99) mg/dL POC Glucose (mg/dL) 421 H 401 H (70-110) mg/dL Plasma Lactic Acid Rivas (0.7-2.0) mmol/L Calcium (8.4-10.2) mg/dL Ionized Calcium Li (4.5-5.3) mg/dL Phosphorus (2.5-4.5) mg/dL Total Bilirubin (0.2-1.3) mg/dL AST (17-59) U/L ALT (4-49) U/L Alkaline Phosphatase (38-126) U/L Total Protein (6.3-8.2) g/dL Albumin (3.5-5.0) g/dL Procalcitonin (0.02-0.09) ng/mL Crossmatch Microbiology - Last 24 Hours (Table) 07/05/22 20:41 Sputum Culture - Preliminary Sputum 07/01/22 11:46 Blood Culture - Preliminary Blood No Growth after 96 hours 07/04/22 08:00 Blood Culture - Preliminary Blood No Growth after 24 hours 07/04/22 08:00 Blood Culture - Preliminary Blood No Growth after 24 hours
[2022-07-06] MEDS: SENNOSIDES 8.6 MG TAB PO SCH ×2 (07:56→20:34)
[2022-07-06] MEDS: TAMSULOSIN 0.4 MG CAP.ER.24H PO SCH (07:56)
[2022-07-06] MEDS: ENOXAPARIN 30 MG/0.3 ML SYRINGE SQ SCH (07:56)
[2022-07-06] MEDS: GABAPENTIN 100 MG CAP PO SCH ×3 (07:56→22:23)
[2022-07-06] MEDS: CHLORHEXIDINE GLUCONATE 15 ML CUP MUCOUS MEM SCH ×2 (07:56→20:33)
[2022-07-06] MEDS: polyethylene glycoL 3350 17 GM POWD.PACK PO SCH (07:57)
[2022-07-06] MEDS: ASPIRIN 81 MG PO SCH (07:57)
[2022-07-06 08:05] LABS: Glucose,Whole Blood 367 mg/dL (70-110)
--- NOTE | 2022-07-06 08:45 | P.PN ---
Subjective Progress Note Date: 07/06/22 87-year-old male patient, transferred to the intensive care unit, unresponsive, on 100% nonrebreather facemask, labored breathing, using a cystoscopy, the breathing, currently in A. fib with RVR and hemodynamically unstable with a blood pressure of 70/54. This was an emergency consult as the patient got acutely L and the patient got transferred to the intensive care unit. I talked to the primary care team. 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 The patient's condition is progressively getting worse and he did aspirate and his chest x-ray revealed extensive left lower lobe consolidation limited left lower lobe pulmonary infiltrate. This probably facilitated his respiratory failure. Discussions with the family was done and the son was adamant on keeping in focal status and he wanted everything to be done for his father. For that reason, the patient got transferred to the ICU and we went to proceed with intubation mechanical ventilation. He is also on fluids and is going to be started on pressors. He has a Edward catheter in place. Urine output is almost negligible at this point in time. No urine is being seen in the Edward bag. The patient wa s seen by oncology during this current admission. Based on his very poor functional status, no further treatment was recommended this point in time. His nutritional status extremely poor. He looks extremely emaciated and weak and debilitated at this point in time. No labs from this morning. The most recent labs from yesterday shows a white cell count of 7.5 with hemoglobin of 8.3 and platelet count of 173. His sodium is at 138, the patient is an acute kidney injury with a BUN of 72 and a creatinine of 1.3 and sodium level is 138. IV fluids currently are no form of normal saline bolus. He is also on amiodarone drip at 1 mg an hour in regards to this atrial fibrillation with RVR. The blood sugars at 262 this morning. His lactic acid level is up to 8. He is on IV Zosyn. He is on Lovenox 40 mg subcu for DVT prophylaxis. He is unresponsive. Barely withdraws to painful stimulation. On today's evaluation of 2021, the patient is intubated, remains sedated on propofol which is running at a rate of 10 mcg/kg/m. Intubated on a mechanical ventilator. He is on assist-control mode at a rate of 26, tidal volume of 450, FiO2 of 50% with a PEEP of 5. His blood gas from today shows a pH of 7.38 with a pCO2 of 34 and pO2 of 86. Chest x-ray showing extensive consolidation of the left lower lobe consistent with pneumonia and the patient is currently on a combination of Zosyn and vancomycin. At the same time, the patient is septic, hypotensive, he was aggressively resuscitated IV fluids. He was placed on a bicarbonate infusion. He was given additional bicarb doses yesterday. His pressors were modified and currently is on norepinephrine running at a dose of 0.17 mcg/kg/m and he is also on physiologic dose of vasopressin. He remained nature fibrillation with rapid response. His heart is the 140 range. He remains on amiodarone at a dose of 1 mg/m. Most recent BP is 97/57. Urine output is in order of less than 5 mL an hour. At the same time, the patient has developed an acute kidney injury. Creatinine is stable compared to yesterday. BUN is 85 and a creatinine of 2.2. Sodium is at 138. Serum bicarb is up to 19. Sodium is at 138. The white cell count today's of 8.7 with a hemoglobin of 8.2 and a platelet count of 143. Cultures are still negative for now. Sputum and blood culture were sent yesterday. NG tube in place. Enteral feeding is in the form of Nepro at a rate of 45 mL an hour which is currently at goal. In terms of anticoagulation, we opted not to give him full dose anticoagulants and we're currently giving him Lovenox portably prophylaxis at a dose of 30 mg subcu on a daily basis. He was started on insulin drip for blood tighter blood sugar control which is currently running at a dose of 19 units an hour. In terms of his lactic acid level, the level is up to 10.0 from yesterday morning and reasonable to repeat another level at this point in time. His pro calcitonin level is at 9.92, quite elevated. The patient has developed a shock liver, the Francois is at 1.4, AST is 4668 Objective - Vital Signs Vital signs: Vital Signs Temp 99.9 F H 07/06/22 08:00 Pulse 152 H 07/06/22 08:00 Resp 30 H 07/06/22 08:00 BP 118/57 07/06/22 05:15 Pulse Ox 94 L 07/06/22 08:00 FiO2 50 07/06/22 08:00 Intake & Output 07/05/22 07/06/22 07/06/22 18:59 06:59 18:59 Intake Total 6451.878 3029.510 481.671 Output Total 322 20 5 Balance 6129.878 3009.510 476.671 Weight 59 kg 67.9 kg Intake: IV 5300 1875 300 Dextrose 5% in Water 1, 1200 1800 300 000 ml @ 150 mls/hr IV . Q7H40M SHANELL with Sodium Bicarb (1 Meq/ml) 150 ml Rx#:[id number] Piperacillin-Tazobactam 3 100 75 .375 gm In Sodium Chloride 0.9% 100 ml @ 25 mls/hr IVPB Q8H [facility] Rx#: [id number] Sodium Chloride 0.9% 1, 4000 000 ml @ 999 mls/hr IV . Q1H1M [facility] Rx#:[id number] Intake, IV Titration 676.878 524.510 61.671 Amount Insulin Regular 100 unit 19.734 20 In Sodium Chloride 0.9% 100 ml @ Titrate IV .Q0M [facility] Rx#:[id number] Norepinephrine 4 mg In 153.420 Sodium Chloride 0.9% 250 ml @ 0.03 MCG/KG/MIN 6. 744 mls/hr IV .Q24H [facility] Rx#:[id number] Norepinephrine 8 mg In 59.196 41.671 Sodium Chloride 0.9% 250 ml @ 0.03 MCG/KG/MIN 3. 425 mls/hr IV .Q24H [facility] Rx#:[id number] Phenylephrine 100 mg In 408.351 Sodium Chloride 0.9% 250 ml @ 6 MCG/KG/MIN 53.1 mls/hr IV .Q4H43M [facility] Rx# :[id number] Phenylephrine 40 mg In 508.000 Sodium Chloride 0.9% 250 ml @ 1 MCG/KG/MIN 22.479 mls/hr IV .[id number] [facility] Rx #:[id number] propofoL 1,000 mg In 15.458 37.229 Empty Bag 1 bag @ 15 MCG/ KG/MIN 5.31 mls/hr IV . [id number] [facility] Rx#:[id number] Tube Feeding 135 540 90 Blood Product 310 Rc As-1 Unit 310 [id number] Other 30 90 30 Output: Gastric Drainage 275 Urine 47 20 5 Other: Voiding Method Indwelling Catheter Indwelling Catheter Indwelling Catheter ABP, PAP, CO, CI - Last Documented Arterial Blood Pressure 85/39 - Exam General: Poor;y developed, poorly nourished. Cachectic, Chronically ill appearing intubated on a mechanical ventilator. Currently sedated. Orogastric and orotracheal tube in place. The patient is extremely pale HEENT: Head is atraumatic, normocephalic. Mucus membranes dry, and there is extensive amount of dryness and sloughing of the mucosal membrane his mouth and tongue area and the patient also has some dried up secretions occupying his posterior oropharynx. CV: Regular rate and rhythm and the patient is atrial fibrillation with rapid ventricular response, murmurs cannot be accurately appreciated Lungs: Diminished breath sounds bilaterally and scattered rhonchi and scattered expiratory wheezes Abdominal exam revealed normal bowel sounds. The abdomen was soft, non-tender, and without masses, organomegaly, or appreciable enlargement of the abdominal aorta. Musculoskeletal/ Extremities: zNo contractures, + generalized weakness Vascular: Diminished pulses bilaterally and the patient has scabs and dried ulcers in his left upper extremity and right extremity along with areas of bruising in his left hip area and upper extremities bilaterally. Skin: Warm and dry. Multiple areas of bruising Neurologic: obtunded, not responsive. + withddraws from pain, sedated with propofol currently running at 10 mcg/kg/m. - Labs CBC & Chem 7: 07/06/22 04:10 07/06/22 04:10 Labs: Abnormal Lab Results - Last 24 Hours (Table) 07/05/22 07/05/22 07/05/22 Range/Units 08:13 08:13 08:13 RBC 2.37 L (4.30-5.90) m/uL Hgb 7.2 L (13.0-17.5) gm/dL Hct 23.7 L (39.0-53.0) % MCV 100.2 H (80.0-100.0) fL MCHC 30.5 L (31.0-37.0) g/dL RDW (11.5-15.5) % Plt Count 123 L (150-450) k/uL Lymphocytes # (Manual) 0.72 L (1.0-4.8) k/uL Metamyelocytes # (Man) 0.22 H (0) k/uL Myelocytes # (Manual) 0.06 H (0) k/uL ABG pH (7.35-7.45) ABG pCO2 (35-45) mmHg ABG pO2 (83-108) mmHg ABG HCO3 (21-25) mmol/L ABG Total CO2 (19-24) mmol/L ABG O2 Saturation (94-97) % VBG pCO2 19 L (37-51) mmHg VBG HCO3 12 L (24-28) mmol/L Potassium 5.8 H (3.5-5.1) mmol/L Chloride 108 H (98-107) mmol/L Carbon Dioxide 15 L (22-30) mmol/L BUN 77 H (9-20) mg/dL Creatinine 1.73 H (0.66-1.25) mg/dL Glucose 241 H (74-99) mg/dL POC Glucose (mg/dL) (70-110) mg/dL Plasma Lactic Acid Rivas (0.7-2.0) mmol/L Calcium 6.1 L* (8.4-10.2) mg/dL Ionized Calcium Li (4.5-5.3) mg/dL Phosphorus (2.5-4.5) mg/dL Total Bilirubin (0.2-1.3) mg/dL AST (17-59) U/L ALT (4-49) U/L Alkaline Phosphatase (38-126) U/L Total Protein (6.3-8.2) g/dL Albumin (3.5-5.0) g/dL Procalcitonin (0.02-0.09) ng/mL Crossmatch 07/05/22 07/05/22 07/05/22 Range/Units 08:13 08:51 08:51 RBC 2.09 L (4.30-5.90) m/uL Hgb 6.8 L* (13.0-17.5) gm/dL Hct 22.0 L (39.0-53.0) % MCV 105.1 H (80.0-100.0) fL MCHC 30.9 L (31.0-37.0) g/dL RDW (11.5-15.5) % Plt Count 146 L (150-450) k/uL Lymphocytes # (Manual) 0.81 L (1.0-4.8) k/uL Metamyelocytes # (Man) 0.23 H (0) k/uL Myelocytes # (Manual) 0.12 H (0) k/uL ABG pH (7.35-7.45) ABG pCO2 (35-45) mmHg ABG pO2 (83-108) mmHg ABG HCO3 (21-25) mmol/L ABG Total CO2 (19-24) mmol/L ABG O2 Saturation (94-97) % VBG pCO2 (37-51) mmHg VBG HCO3 (24-28) mmol/L Potassium 5.6 H (3.5-5.1) mmol/L Chloride 110 H (98-107) mmol/L Carbon Dioxide 14 L (22-30) mmol/L BUN 72 H (9-20) mg/dL Creatinine 1.72 H (0.66-1.25) mg/dL Glucose 219 H (74-99) mg/dL POC Glucose (mg/dL) (70-110) mg/dL Plasma Lactic Acid Rivas 10.0 H* (0.7-2.0) mmol/L Calcium 5.8 L* (8.4-10.2) mg/dL Ionized Calcium Li (4.5-5.3) mg/dL Phosphorus 5.6 H (2.5-4.5) mg/dL Total Bilirubin (0.2-1.3) mg/dL AST 486 H (17-59) U/L ALT 50 H (4-49) U/L Alkaline Phosphatase 152 H (38-126) U/L Total Protein 4.1 L (6.3-8.2) g/dL Albumin 1.9 L (3.5-5.0) g/dL Procalcitonin (0.02-0.09) ng/mL Crossmatch 07/05/22 07/05/22 07/05/22 Range/Units 08:51 10:09 13:32 RBC (4.30-5.90) m/uL Hgb (13.0-17.5) gm/dL Hct (39.0-53.0) % MCV (80.0-100.0) fL MCHC (31.0-37.0) g/dL RDW (11.5-15.5) % Plt Count (150-450) k/uL Lymphocytes # (Manual) (1.0-4.8) k/uL Metamyelocytes # (Man) (0) k/uL Myelocytes # (Manual) (0) k/uL ABG pH 7.08 L* (7.35-7.45) ABG pCO2 (35-45) mmHg ABG pO2 81 L (83-108) mmHg ABG HCO3 13 L (21-25) mmol/L ABG Total CO2 15 L (19-24) mmol/L ABG O2 Saturation 90.5 L (94-97) % VBG pCO2 (37-51) mmHg VBG HCO3 (24-28) mmol/L Potassium (3.5-5.1) mmol/L Chloride (98-107) mmol/L Carbon Dioxide (22-30) mmol/L BUN (9-20) mg/dL Creatinine (0.66-1.25) mg/dL Glucose (74-99) mg/dL POC Glucose (mg/dL) 250 H (70-110) mg/dL Plasma Lactic Acid Rivas (0.7-2.0) mmol/L Calcium (8.4-10.2) mg/dL Ionized Calcium Li (4.5-5.3) mg/dL Phosphorus (2.5-4.5) mg/dL Total Bilirubin (0.2-1.3) mg/dL AST (17-59) U/L ALT (4-49) U/L Alkaline Phosphatase (38-126) U/L Total Protein (6.3-8.2) g/dL Albumin (3.5-5.0) g/dL Procalcitonin 9.92 H (0.02-0.09) ng/mL Crossmatch 07/05/22 07/05/22 07/05/22 Range/Units 15:17 17:02 20:06 RBC (4.30-5.90) m/uL Hgb (13.0-17.5) gm/dL Hct (39.0-53.0) % MCV (80.0-100.0) fL MCHC (31.0-37.0) g/dL RDW (11.5-15.5) % Plt Count (150-450) k/uL Lymphocytes # (Manual) (1.0-4.8) k/uL Metamyelocytes # (Man) (0) k/uL Myelocytes # (Manual) (0) k/uL ABG pH (7.35-7.45) ABG pCO2 (35-45) mmHg ABG pO2 (83-108) mmHg ABG HCO3 (21-25) mmol/L ABG Total CO2 (19-24) mmol/L ABG O2 Saturation (94-97) % VBG pCO2 (37-51) mmHg VBG HCO3 (24-28) mmol/L Potassium (3.5-5.1) mmol/L Chloride (98-107) mmol/L Carbon Dioxide (22-30) mmol/L BUN (9-20) mg/dL Creatinine (0.66-1.25) mg/dL Glucose (74-99) mg/dL POC Glucose (mg/dL) 191 H 286 H (70-110) mg/dL Plasma Lactic Acid Rivas (0.7-2.0) mmol/L Calcium (8.4-10.2) mg/dL Ionized Calcium Li (4.5-5.3) mg/dL Phosphorus (2.5-4.5) mg/dL Total Bilirubin (0.2-1.3) mg/dL AST (17-59) U/L ALT (4-49) U/L Alkaline Phosphatase (38-126) U/L Total Protein (6.3-8.2) g/dL Albumin (3.5-5.0) g/dL Procalcitonin (0.02-0.09) ng/mL Crossmatch See Detail 07/05/22 07/05/22 07/05/22 Range/Units 21:02 21:05 21:05 RBC 2.71 L (4.30-5.90) m/uL Hgb 8.6 L D (13.0-17.5) gm/dL Hct 28.0 L (39.0-53.0) % MCV 103.2 H (80.0-100.0) fL MCHC 30.8 L (31.0-37.0) g/dL RDW (11.5-15.5) % Plt Count (150-450) k/uL Lymphocytes # (Manual) (1.0-4.8) k/uL Metamyelocytes # (Man) (0) k/uL Myelocytes # (Manual) (0) k/uL ABG pH 7.15 L* (7.35-7.45) ABG pCO2 34 L (35-45) mmHg ABG pO2 (83-108) mmHg ABG HCO3 12 L (21-25) mmol/L ABG Total CO2 13 L (19-24) mmol/L ABG O2 Saturation (94-97) % VBG pCO2 (37-51) mmHg VBG HCO3 (24-28) mmol/L Potassium (3.5-5.1) mmol/L Chloride (98-107) mmol/L Carbon Dioxide (22-30) mmol/L BUN (9-20) mg/dL Creatinine (0.66-1.25) mg/dL Glucose (74-99) mg/dL POC Glucose (mg/dL) (70-110) mg/dL Plasma Lactic Acid Rivas (0.7-2.0) mmol/L Calcium (8.4-10.2) mg/dL Ionized Calcium Li 3.9 L (4.5-5.3) mg/dL Phosphorus (2.5-4.5) mg/dL Total Bilirubin (0.2-1.3) mg/dL AST (17-59) U/L ALT (4-49) U/L Alkaline Phosphatase (38-126) U/L Total Protein (6.3-8.2) g/dL Albumin (3.5-5.0) g/dL Procalcitonin (0.02-0.09) ng/mL Crossmatch 07/05/22 07/06/22 07/06/22 Range/Units 21:05 00:05 04:10 RBC (4.30-5.90) m/uL Hgb (13.0-17.5) gm/dL Hct (39.0-53.0) % MCV (80.0-100.0) fL MCHC (31.0-37.0) g/dL RDW (11.5-15.5) % Plt Count (150-450) k/uL Lymphocytes # (Manual) (1.0-4.8) k/uL Metamyelocytes # (Man) (0) k/uL Myelocytes # (Manual) (0) k/uL ABG pH (7.35-7.45) ABG pCO2 (35-45) mmHg ABG pO2 (83-108) mmHg ABG HCO3 (21-25) mmol/L ABG Total CO2 (19-24) mmol/L ABG O2 Saturation (94-97) % VBG pCO2 (37-51) mmHg VBG HCO3 (24-28) mmol/L Potassium (3.5-5.1) mmol/L Chloride (98-107) mmol/L Carbon Dioxide 11 L 19 L (22-30) mmol/L BUN 72 H 85 H (9-20) mg/dL Creatinine 2.22 H 2.28 H (0.66-1.25) mg/dL Glucose 281 H 368 H (74-99) mg/dL POC Glucose (mg/dL) 327 H (70-110) mg/dL Plasma Lactic Acid Rivas (0.7-2.0) mmol/L Calcium 6.6 L 6.0 L* (8.4-10.2) mg/dL Ionized Calcium Li (4.5-5.3) mg/dL Phosphorus (2.5-4.5) mg/dL Total Bilirubin 1.4 H (0.2-1.3) mg/dL AST 4668 H (17-59) U/L ALT 155 H (4-49) U/L Alkaline Phosphatase 170 H (38-126) U/L Total Protein 4.3 L (6.3-8.2) g/dL Albumin 2.0 L (3.5-5.0) g/dL Procalcitonin (0.02-0.09) ng/mL Crossmatch 07/06/22 07/06/22 07/06/22 Range/Units 04:10 04:13 05:01 RBC 2.66 L (4.30-5.90) m/uL Hgb 8.2 L (13.0-17.5) gm/dL Hct 26.0 L (39.0-53.0) % MCV (80.0-100.0) fL MCHC (31.0-37.0) g/dL RDW 15.7 H (11.5-15.5) % Plt Count 143 L (150-450) k/uL Lymphocytes # (Manual) 0.78 L (1.0-4.8) k/uL Metamyelocytes # (Man) 0.44 H (0) k/uL Myelocytes # (Manual) 0.09 H (0) k/uL ABG pH (7.35-7.45) ABG pCO2 (35-45) mmHg ABG pO2 (83-108) mmHg ABG HCO3 (21-25) mmol/L ABG Total CO2 (19-24) mmol/L ABG O2 Saturation (94-97) % VBG pCO2 (37-51) mmHg VBG HCO3 (24-28) mmol/L Potassium (3.5-5.1) mmol/L Chloride (98-107) mmol/L Carbon Dioxide (22-30) mmol/L BUN (9-20) mg/dL Creatinine (0.66-1.25) mg/dL Glucose (74-99) mg/dL POC Glucose (mg/dL) 404 H 421 H (70-110) mg/dL Plasma Lactic Acid Rivas (0.7-2.0) mmol/L Calcium (8.4-10.2) mg/dL Ionized Calcium Li (4.5-5.3) mg/dL Phosphorus (2.5-4.5) mg/dL Total Bilirubin (0.2-1.3) mg/dL AST (17-59) U/L ALT (4-49) U/L Alkaline Phosphatase (38-126) U/L Total Protein (6.3-8.2) g/dL Albumin (3.5-5.0) g/dL Procalcitonin (0.02-0.09) ng/mL Crossmatch 07/06/22 07/06/22 07/06/22 Range/Units 05:02 05:42 05:57 RBC (4.30-5.90) m/uL Hgb (13.0-17.5) gm/dL Hct (39.0-53.0) % MCV (80.0-100.0) fL MCHC (31.0-37.0) g/dL RDW (11.5-15.5) % Plt Count (150-450) k/uL Lymphocytes # (Manual) (1.0-4.8) k/uL Metamyelocytes # (Man) (0) k/uL Myelocytes # (Manual) (0) k/uL ABG pH (7.35-7.45) ABG pCO2 34 L (35-45) mmHg ABG pO2 (83-108) mmHg ABG HCO3 20 L (21-25) mmol/L ABG Total CO2 (19-24) mmol/L ABG O2 Saturation 97.1 H (94-97) % VBG pCO2 (37-51) mmHg VBG HCO3 (24-28) mmol/L Potassium (3.5-5.1) mmol/L Chloride (98-107) mmol/L Carbon Dioxide (22-30) mmol/L BUN (9-20) mg/dL Creatinine (0.66-1.25) mg/dL Glucose (74-99) mg/dL POC Glucose (mg/dL) 421 H (70-110) mg/dL Plasma Lactic Acid Rivas (0.7-2.0) mmol/L Calcium (8.4-10.2) mg/dL Ionized Calcium Li 3.6 L (4.5-5.3) mg/dL Phosphorus (2.5-4.5) mg/dL Total Bilirubin (0.2-1.3) mg/dL AST (17-59) U/L ALT (4-49) U/L Alkaline Phosphatase (38-126) U/L Total Protein (6.3-8.2) g/dL Albumin (3.5-5.0) g/dL Procalcitonin (0.02-0.09) ng/mL Crossmatch 07/06/22 07/06/22 Range/Units 06:48 08:03 RBC (4.30-5.90) m/uL Hgb (13.0-17.5) gm/dL Hct (39.0-53.0) % MCV (80.0-100.0) fL MCHC (31.0-37.0) g/dL RDW (11.5-15.5) % Plt Count (150-450) k/uL Lymphocytes # (Manual) (1.0-4.8) k/uL Metamyelocytes # (Man) (0) k/uL Myelocytes # (Manual) (0) k/uL ABG pH (7.35-7.45) ABG pCO2 (35-45) mmHg ABG pO2 (83-108) mmHg ABG HCO3 (21-25) mmol/L ABG Total CO2 (19-24) mmol/L ABG O2 Saturation (94-97) % VBG pCO2 (37-51) mmHg VBG HCO3 (24-28) mmol/L Potassium (3.5-5.1) mmol/L Chloride (98-107) mmol/L Carbon Dioxide (22-30) mmol/L BUN (9-20) mg/dL Creatinine (0.66-1.25) mg/dL Glucose (74-99) mg/dL POC Glucose (mg/dL) 401 H 367 H (70-110) mg/dL Plasma Lactic Acid Rivas (0.7-2.0) mmol/L Calcium (8.4-10.2) mg/dL Ionized Calcium Li (4.5-5.3) mg/dL Phosphorus (2.5-4.5) mg/dL Total Bilirubin (0.2-1.3) mg/dL AST (17-59) U/L ALT (4-49) U/L Alkaline Phosphatase (38-126) U/L Total Protein (6.3-8.2) g/dL Albumin (3.5-5.0) g/dL Procalcitonin (0.02-0.09) ng/mL Crossmatch Microbiology - Last 24 Hours (Table) 07/05/22 20:41 Sputum Culture - Preliminary Sputum 07/01/22 11:46 Blood Culture - Preliminary Blood No Growth after 96 hours 07/04/22 08:00 Blood Culture - Preliminary Blood No Growth after 24 hours 07/04/22 08:00 Blood Culture - Preliminary Blood No Growth after 24 hours Assessment and Plan Plan: Transfer care Acute hypoxic respiratory failure with bilateral lower lobe pulmonary infiltrates and extensive consolidation of left lower lobe, consider aspiration especially with his underlying comorbidities which include Parkinson's disease and prostate cancer. , Currently the patient is intubated on a mechanical ventilator. Chest x-ray still showing extensive consolidation of the left lower lobe. The patient is on a combination of Zosyn and vancomycin. He is in septic shock with multisystem organ failure. Acute respiratory failure secondary to above Acute hypotension, possibly sepsis, currently on IV fluids and the patient has been resuscitated aggressively and the patient is also on examination of norepinephrine and vasopressin physiologic dose. Acute lactic acidosis, with anion gap metabolic acidosis Change in mental status, multifactorial, obviously there is a component of metabolic encephalopathy and septic encephalopathy Acute kidney injury, oliguric, secondary to septic shock, creatinine is up to 2.28 and the patient is not producing any significant urine output at this point in time. Acute anabolic acidosis, currently on a bicarbonate infusion, improvement in acid base status Chronic anemia, hemoglobin was down to 6.8 and the patient is severely units of packed RBC History of Parkinson's disease Episodes of fever Sacral decubitus ulcers Severe protein calorie malnutrition, currently on Nepro Atrial fibrillation with rapid ventricular response, currently on amiodarone drip, the patient converts back and forth into sinus rhythm and a chair fibrillation. He has a preserved LV function. He remains on amiodarone. 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 Diabetes mellitus type 2, currently on insulin drip for blood sugar control at the rate of 19 units an hour Coronary artery disease Mild to moderate LV systolic dysfunction with mild mitral regurgitation, ejection fraction order of 40-45% Abnormal LFTs, with significant elevation of the AST, rule out rhabdomyolysis, rule out shock liver Very much impaired performance and functional status Plan Continue vent support Continue the bicarbonate infusion for another 24 hours Monitor LFTs and check a baseline CPK Continue the bicarbonate infusion Continue IV Zosyn and add vancomycin Awaiting sputum Gram stain and culture Awaiting blood culture Check pro calcitonin level, elevated Monitor lactic acid level, level needs today. Monitor urine output Nepro as enteral feeding for nutritional support Pressors in the form of norepinephrine and vasopressin Amiodarone 4 rate control in regards stage of fibrillation with RVR. Wound care and the patient has a unstageable sacral decubitus ulcer and Opteform is applied and is obviously a pressure ulcer in his sacrum. Smaller ulcer also present on his left hip area. Continue insulin drip for blood sugar control No anticoagulants for now will use only Lovenox 30 mg subcu for prophylaxis [employer] on the case Extremely poor prognosis based on above mentioned Is a high risk for mortality in this patient despite our aggressive and ongoing care. The family will be made aware of that. Had a discussion with the son who wanted to continue with the treatment despite the known prognosis Critical care evaluation that was done in more than 30 minutes Time with Patient: Greater than 30
--- NOTE | 2022-07-06 08:55 | XR ---
EXAMINATION TYPE: XR chest 1V portable DATE OF EXAM: 07/06/2022 COMPARISON: 07/05/2022 HISTORY: Shortness of breath TECHNIQUE: Single frontal view of the chest is obtained. FINDINGS: NG tube seen coursing the left upper quadrant. ET tube appears 5 cm above the patrice. Diff use osseous abnormal attenuation. Coarsened central interstitium with left lower lobe infiltrate and pleural effusion. No sizable pneumothorax. IMPRESSION: 1. Stable left-sided consolidation correlate for pneumonia. 2. Diffuse osseous metastases.
[2022-07-06 09:06] LABS: Creatine Kinase 468 U/L (55-170)
[2022-07-06 09:13] LABS: Glucose,Whole Blood 343 mg/dL (70-110)
[2022-07-06 09:42] LABS: ALT 633 U/L (4-49)
[2022-07-06] MEDS ORDERED: FUROSEMIDE 10 MG/ML 10 ML VIAL IV STA (10:11)
[2022-07-06 10:13] LABS: AST 11074 U/L (17-59)
[2022-07-06 10:13] LABS: Glucose,Whole Blood 304 mg/dL (70-110)
--- NOTE | 2022-07-06 10:38 | P.PN ---
Subjective Patient is seen for follow-up for hyponatremia. Serum sodium level had been staying around 138. Patient was transferred to the ICU . He initially developed A. fib with RVR and hypotension. He was noted to have agonal breathing and was subsequently intubated. Currently patient is maintained on amiodarone drip. He is also on levo fed for hypotension. Urine output has dropped off to 0 to 5 mL an hour Maintained on tube feedings FiO2 at 50% currently No active bleeding noted. Serum creatinine increased to 2.28 today. Potassium is at 5.0 Maintained on bicarb drip Pressors have increased since yesterday Son present at bedside and I explained to him that patient is not an ideal candidate for renal replacement therapy given his significant hypotension and metastatic cancer. However, there is no indication for emergent dialysis today. Objective - Vital Signs Vital signs: Vital Signs Temp 99.9 F H 07/06/22 08:00 Pulse 142 H 07/06/22 10:00 Resp 30 H 07/06/22 10:00 BP 118/57 07/06/22 05:15 Pulse Ox 95 07/06/22 10:00 FiO2 50 07/06/22 08:00 Intake & Output 07/05/22 07/06/22 07/06/22 18:59 06:59 18:59 Intake Total 6451.878 3029.510 915.787 Output Total 322 20 15 Balance 6129.878 3009.510 900.787 Weight 59 kg 67.9 kg Intake: IV 5300 1875 600 Dextrose 5% in Water 1, 1200 1800 600 000 ml @ 150 mls/hr IV . Q7H40M SHANELL with Sodium Bicarb (1 Meq/ml) 150 ml Rx#:[id number] Piperacillin-Tazobactam 3 100 75 .375 gm In Sodium Chloride 0.9% 100 ml @ 25 mls/hr IVPB Q8H SHANELL Rx#: [id number] Sodium Chloride 0.9% 1, 4000 000 ml @ 999 mls/hr IV . Q1H1M ONE Rx#:[id number] Intake, IV Titration 676.878 524.510 105.787 Amount Insulin Regular 100 unit 19.734 64.116 In Sodium Chloride 0.9% 100 ml @ Titrate IV .Q0M SHANELL Rx#:[id number] Norepinephrine 4 mg In 153.420 Sodium Chloride 0.9% 250 ml @ 0.03 MCG/KG/MIN 6. 744 mls/hr IV .Q24H SHANELL Rx#:[id number] Norepinephrine 8 mg In 59.196 41.671 Sodium Chloride 0.9% 250 ml @ 0.03 MCG/KG/MIN 3. 425 mls/hr IV .Q24H SHANELL Rx#:[id number] Phenylephrine 100 mg In 408.351 Sodium Chloride 0.9% 250 ml @ 6 MCG/KG/MIN 53.1 mls/hr IV .Q4H43M SHANELL Rx# :[id number] Phenylephrine 40 mg In 508.000 Sodium Chloride 0.9% 250 ml @ 1 MCG/KG/MIN 22.479 mls/hr IV .[id number] SHANELL Rx #:[id number] propofoL 1,000 mg In 15.458 37.229 Empty Bag 1 bag @ 15 MCG/ KG/MIN 5.31 mls/hr IV . [id number] SHANELL Rx#:[id number] Tube Feeding 135 540 180 Blood Product 310 Rc As-1 Unit 310 [id number] Other 30 90 30 Output: Gastric Drainage 275 Urine 47 20 15 Other: Voiding Method Indwelling Catheter Indwelling Catheter Indwelling Catheter # Voids 0 ABP, PAP, CO, CI - Last Documented Arterial Blood Pressure 108/49 - Exam Patient is sedated and intubated Examination of the heart S1 and S2 Examination of the lungs decreased breath sounds at the bases Abdomen is soft nontender Examination lower extremities shows 1+ edema - Labs CBC & Chem 7: 07/06/22 04:10 07/06/22 04:10 Labs: Abnormal Lab Results - Last 24 Hours (Table) 07/05/22 07/05/22 07/05/22 Range/Units 08:51 08:51 08:51 RBC 2.09 L (4.30-5.90) m/uL Hgb 6.8 L* (13.0-17.5) gm/dL Hct 22.0 L (39.0-53.0) % MCV 105.1 H (80.0-100.0) fL MCHC 30.9 L (31.0-37.0) g/dL RDW (11.5-15.5) % Plt Count 146 L (150-450) k/uL Lymphocytes # (Manual) 0.81 L (1.0-4.8) k/uL Metamyelocytes # (Man) 0.23 H (0) k/uL Myelocytes # (Manual) 0.12 H (0) k/uL ABG pH (7.35-7.45) ABG pCO2 (35-45) mmHg ABG HCO3 (21-25) mmol/L ABG Total CO2 (19-24) mmol/L ABG O2 Saturation (94-97) % Potassium 5.6 H (3.5-5.1) mmol/L Chloride 110 H (98-107) mmol/L Carbon Dioxide 14 L (22-30) mmol/L BUN 72 H (9-20) mg/dL Creatinine 1.72 H (0.66-1.25) mg/dL Glucose 219 H (74-99) mg/dL POC Glucose (mg/dL) (70-110) mg/dL Hemoglobin A1c (0.0-6.0) % Calcium 5.8 L* (8.4-10.2) mg/dL Ionized Calcium Li (4.5-5.3) mg/dL Phosphorus 5.6 H (2.5-4.5) mg/dL Total Bilirubin (0.2-1.3) mg/dL AST 486 H (17-59) U/L ALT 50 H (4-49) U/L Alkaline Phosphatase 152 H (38-126) U/L Creatine Kinase (55-170) U/L Total Protein 4.1 L (6.3-8.2) g/dL Albumin 1.9 L (3.5-5.0) g/dL Procalcitonin 9.92 H (0.02-0.09) ng/mL Crossmatch 07/05/22 07/05/22 07/05/22 Range/Units 13:32 15:17 17:02 RBC (4.30-5.90) m/uL Hgb (13.0-17.5) gm/dL Hct (39.0-53.0) % MCV (80.0-100.0) fL MCHC (31.0-37.0) g/dL RDW (11.5-15.5) % Plt Count (150-450) k/uL Lymphocytes # (Manual) (1.0-4.8) k/uL Metamyelocytes # (Man) (0) k/uL Myelocytes # (Manual) (0) k/uL ABG pH (7.35-7.45) ABG pCO2 (35-45) mmHg ABG HCO3 (21-25) mmol/L ABG Total CO2 (19-24) mmol/L ABG O2 Saturation (94-97) % Potassium (3.5-5.1) mmol/L Chloride (98-107) mmol/L Carbon Dioxide (22-30) mmol/L BUN (9-20) mg/dL Creatinine (0.66-1.25) mg/dL Glucose (74-99) mg/dL POC Glucose (mg/dL) 250 H 191 H (70-110) mg/dL Hemoglobin A1c (0.0-6.0) % Calcium (8.4-10.2) mg/dL Ionized Calcium Li (4.5-5.3) mg/dL Phosphorus (2.5-4.5) mg/dL Total Bilirubin (0.2-1.3) mg/dL AST (17-59) U/L ALT (4-49) U/L Alkaline Phosphatase (38-126) U/L Creatine Kinase (55-170) U/L Total Protein (6.3-8.2) g/dL Albumin (3.5-5.0) g/dL Procalcitonin (0.02-0.09) ng/mL Crossmatch See Detail 07/05/22 07/05/22 07/05/22 Range/Units 20:06 21:02 21:05 RBC (4.30-5.90) m/uL Hgb (13.0-17.5) gm/dL Hct (39.0-53.0) % MCV (80.0-100.0) fL MCHC (31.0-37.0) g/dL RDW (11.5-15.5) % Plt Count (150-450) k/uL Lymphocytes # (Manual) (1.0-4.8) k/uL Metamyelocytes # (Man) (0) k/uL Myelocytes # (Manual) (0) k/uL ABG pH 7.15 L* (7.35-7.45) ABG pCO2 34 L (35-45) mmHg ABG HCO3 12 L (21-25) mmol/L ABG Total CO2 13 L (19-24) mmol/L ABG O2 Saturation (94-97) % Potassium (3.5-5.1) mmol/L Chloride (98-107) mmol/L Carbon Dioxide (22-30) mmol/L BUN (9-20) mg/dL Creatinine (0.66-1.25) mg/dL Glucose (74-99) mg/dL POC Glucose (mg/dL) 286 H (70-110) mg/dL Hemoglobin A1c (0.0-6.0) % Calcium (8.4-10.2) mg/dL Ionized Calcium Li 3.9 L (4.5-5.3) mg/dL Phosphorus (2.5-4.5) mg/dL Total Bilirubin (0.2-1.3) mg/dL AST (17-59) U/L ALT (4-49) U/L Alkaline Phosphatase (38-126) U/L Creatine Kinase (55-170) U/L Total Protein (6.3-8.2) g/dL Albumin (3.5-5.0) g/dL Procalcitonin (0.02-0.09) ng/mL Crossmatch 07/05/22 07/05/22 07/06/22 Range/Units 21:05 21:05 00:05 RBC 2.71 L (4.30-5.90) m/uL Hgb 8.6 L D (13.0-17.5) gm/dL Hct 28.0 L (39.0-53.0) % MCV 103.2 H (80.0-100.0) fL MCHC 30.8 L (31.0-37.0) g/dL RDW (11.5-15.5) % Plt Count (150-450) k/uL Lymphocytes # (Manual) (1.0-4.8) k/uL Metamyelocytes # (Man) (0) k/uL Myelocytes # (Manual) (0) k/uL ABG pH (7.35-7.45) ABG pCO2 (35-45) mmHg ABG HCO3 (21-25) mmol/L ABG Total CO2 (19-24) mmol/L ABG O2 Saturation (94-97) % Potassium (3.5-5.1) mmol/L Chloride (98-107) mmol/L Carbon Dioxide 11 L (22-30) mmol/L BUN 72 H (9-20) mg/dL Creatinine 2.22 H (0.66-1.25) mg/dL Glucose 281 H (74-99) mg/dL POC Glucose (mg/dL) 327 H (70-110) mg/dL Hemoglobin A1c (0.0-6.0) % Calcium 6.6 L (8.4-10.2) mg/dL Ionized Calcium Li (4.5-5.3) mg/dL Phosphorus (2.5-4.5) mg/dL Total Bilirubin 1.4 H (0.2-1.3) mg/dL AST 4668 H (17-59) U/L ALT 155 H (4-49) U/L Alkaline Phosphatase 170 H (38-126) U/L Creatine Kinase (55-170) U/L Total Protein 4.3 L (6.3-8.2) g/dL Albumin 2.0 L (3.5-5.0) g/dL Procalcitonin (0.02-0.09) ng/mL Crossmatch 07/06/22 07/06/22 07/06/22 Range/Units 04:10 04:10 04:10 RBC 2.66 L (4.30-5.90) m/uL Hgb 8.2 L (13.0-17.5) gm/dL Hct 26.0 L (39.0-53.0) % MCV (80.0-100.0) fL MCHC (31.0-37.0) g/dL RDW 15.7 H (11.5-15.5) % Plt Count 143 L (150-450) k/uL Lymphocytes # (Manual) 0.78 L (1.0-4.8) k/uL Metamyelocytes # (Man) 0.44 H (0) k/uL Myelocytes # (Manual) 0.09 H (0) k/uL ABG pH (7.35-7.45) ABG pCO2 (35-45) mmHg ABG HCO3 (21-25) mmol/L ABG Total CO2 (19-24) mmol/L ABG O2 Saturation (94-97) % Potassium (3.5-5.1) mmol/L Chloride (98-107) mmol/L Carbon Dioxide 19 L (22-30) mmol/L BUN 85 H (9-20) mg/dL Creatinine 2.28 H (0.66-1.25) mg/dL Glucose 368 H (74-99) mg/dL POC Glucose (mg/dL) (70-110) mg/dL Hemoglobin A1c 6.5 H (0.0-6.0) % Calcium 6.0 L* (8.4-10.2) mg/dL Ionized Calcium Li (4.5-5.3) mg/dL Phosphorus (2.5-4.5) mg/dL Total Bilirubin (0.2-1.3) mg/dL AST (17-59) U/L ALT (4-49) U/L Alkaline Phosphatase (38-126) U/L Creatine Kinase (55-170) U/L Total Protein (6.3-8.2) g/dL Albumin (3.5-5.0) g/dL Procalcitonin (0.02-0.09) ng/mL Crossmatch 07/06/22 07/06/22 07/06/22 Range/Units 04:10 04:13 05:01 RBC (4.30-5.90) m/uL Hgb (13.0-17.5) gm/dL Hct (39.0-53.0) % MCV (80.0-100.0) fL MCHC (31.0-37.0) g/dL RDW (11.5-15.5) % Plt Count (150-450) k/uL Lymphocytes # (Manual) (1.0-4.8) k/uL Metamyelocytes # (Man) (0) k/uL Myelocytes # (Manual) (0) k/uL ABG pH (7.35-7.45) ABG pCO2 (35-45) mmHg ABG HCO3 (21-25) mmol/L ABG Total CO2 (19-24) mmol/L ABG O2 Saturation (94-97) % Potassium (3.5-5.1) mmol/L Chloride (98-107) mmol/L Carbon Dioxide (22-30) mmol/L BUN (9-20) mg/dL Creatinine (0.66-1.25) mg/dL Glucose (74-99) mg/dL POC Glucose (mg/dL) 404 H 421 H (70-110) mg/dL Hemoglobin A1c (0.0-6.0) % Calcium (8.4-10.2) mg/dL Ionized Calcium Li (4.5-5.3) mg/dL Phosphorus (2.5-4.5) mg/dL Total Bilirubin (0.2-1.3) mg/dL AST 97347 H (17-59) U/L ALT 633 H (4-49) U/L Alkaline Phosphatase (38-126) U/L Creatine Kinase 468 H (55-170) U/L Total Protein (6.3-8.2) g/dL Albumin (3.5-5.0) g/dL Procalcitonin (0.02-0.09) ng/mL Crossmatch 07/06/22 07/06/22 07/06/22 Range/Units 05:02 05:42 05:57 RBC (4.30-5.90) m/uL Hgb (13.0-17.5) gm/dL Hct (39.0-53.0) % MCV (80.0-100.0) fL MCHC (31.0-37.0) g/dL RDW (11.5-15.5) % Plt Count (150-450) k/uL Lymphocytes # (Manual) (1.0-4.8) k/uL Metamyelocytes # (Man) (0) k/uL Myelocytes # (Manual) (0) k/uL ABG pH (7.35-7.45) ABG pCO2 34 L (35-45) mmHg ABG HCO3 20 L (21-25) mmol/L ABG Total CO2 (19-24) mmol/L ABG O2 Saturation 97.1 H (94-97) % Potassium (3.5-5.1) mmol/L Chloride (98-107) mmol/L Carbon Dioxide (22-30) mmol/L BUN (9-20) mg/dL Creatinine (0.66-1.25) mg/dL Glucose (74-99) mg/dL POC Glucose (mg/dL) 421 H (70-110) mg/dL Hemoglobin A1c (0.0-6.0) % Calcium (8.4-10.2) mg/dL Ionized Calcium Li 3.6 L (4.5-5.3) mg/dL Phosphorus (2.5-4.5) mg/dL Total Bilirubin (0.2-1.3) mg/dL AST (17-59) U/L ALT (4-49) U/L Alkaline Phosphatase (38-126) U/L Creatine Kinase (55-170) U/L Total Protein (6.3-8.2) g/dL Albumin (3.5-5.0) g/dL Procalcitonin (0.02-0.09) ng/mL Crossmatch 07/06/22 07/06/22 07/06/22 Range/Units 06:48 08:03 09:11 RBC (4.30-5.90) m/uL Hgb (13.0-17.5) gm/dL Hct (39.0-53.0) % MCV (80.0-100.0) fL MCHC (31.0-37.0) g/dL RDW (11.5-15.5) % Plt Count (150-450) k/uL Lymphocytes # (Manual) (1.0-4.8) k/uL Metamyelocytes # (Man) (0) k/uL Myelocytes # (Manual) (0) k/uL ABG pH (7.35-7.45) ABG pCO2 (35-45) mmHg ABG HCO3 (21-25) mmol/L ABG Total CO2 (19-24) mmol/L ABG O2 Saturation (94-97) % Potassium (3.5-5.1) mmol/L Chloride (98-107) mmol/L Carbon Dioxide (22-30) mmol/L BUN (9-20) mg/dL Creatinine (0.66-1.25) mg/dL Glucose (74-99) mg/dL POC Glucose (mg/dL) 401 H 367 H 343 H (70-110) mg/dL Hemoglobin A1c (0.0-6.0) % Calcium (8.4-10.2) mg/dL Ionized Calcium Li (4.5-5.3) mg/dL Phosphorus (2.5-4.5) mg/dL Total Bilirubin (0.2-1.3) mg/dL AST (17-59) U/L ALT (4-49) U/L Alkaline Phosphatase (38-126) U/L Creatine Kinase (55-170) U/L Total Protein (6.3-8.2) g/dL Albumin (3.5-5.0) g/dL Procalcitonin (0.02-0.09) ng/mL Crossmatch 07/06/22 Range/Units 10:11 RBC (4.30-5.90) m/uL Hgb (13.0-17.5) gm/dL Hct (39.0-53.0) % MCV (80.0-100.0) fL MCHC (31.0-37.0) g/dL RDW (11.5-15.5) % Plt Count (150-450) k/uL Lymphocytes # (Manual) (1.0-4.8) k/uL Metamyelocytes # (Man) (0) k/uL Myelocytes # (Manual) (0) k/uL ABG pH (7.35-7.45) ABG pCO2 (35-45) mmHg ABG HCO3 (21-25) mmol/L ABG Total CO2 (19-24) mmol/L ABG O2 Saturation (94-97) % Potassium (3.5-5.1) mmol/L Chloride (98-107) mmol/L Carbon Dioxide (22-30) mmol/L BUN (9-20) mg/dL Creatinine (0.66-1.25) mg/dL Glucose (74-99) mg/dL POC Glucose (mg/dL) 304 H (70-110) mg/dL Hemoglobin A1c (0.0-6.0) % Calcium (8.4-10.2) mg/dL Ionized Calcium Li (4.5-5.3) mg/dL Phosphorus (2.5-4.5) mg/dL Total Bilirubin (0.2-1.3) mg/dL AST (17-59) U/L ALT (4-49) U/L Alkaline Phosphatase (38-126) U/L Creatine Kinase (55-170) U/L Total Protein (6.3-8.2) g/dL Albumin (3.5-5.0) g/dL Procalcitonin (0.02-0.09) ng/mL Crossmatch Microbiology - Last 24 Hours (Table) 07/04/22 08:00 Blood Culture - Preliminary Blood No Growth after 48 hours 07/04/22 08:00 Blood Culture - Preliminary Blood No Growth after 48 hours 07/05/22 20:41 Sputum Culture - Preliminary Sputum 07/01/22 11:46 Blood Culture - Preliminary Blood No Growth after 96 hours Assessment and Plan Assessment: 1. Hyponatremia from poor solute intake. Hypervolemic. Resolved. Free water flushes currently on hold. 2. Acute hypoxic respiratory failure , currently intubated. 3. Prostate cancer with metastatic disease. 4. Benign hypertension. Stable. 5. Diabetes mellitus. 6. Parkinson's disease. Neurology following. 7. Urinary retention. Edward catheter placed. On Flomax. No hydronephrosis noted on kidney ultrasound. Left kidney not visualized. 8. Hypokalemia from poor intake and diuresis. Replaced. 10. A. fib with RVR maintained on amiodarone drip 11. Metabolic acidosis currently on bicarb drip 12. Acute kidney injury secondary to hypotension and hemodynamic instability. Oliguric 13. Hyperkalemia associated with acute kidney injury and metabolic acidosis Plan: Continue with IV bicarb No indication for emergent dialysis today Discussed with son regarding poor prognosis and the fact that patient is not an ideal candidate for renal replacement therapy given his metastatic prostatic cancer as well as significant hypertension requiring high doses of pressors.
[2022-07-06 11:18] LABS: Glucose,Whole Blood 282 mg/dL (70-110)
[2022-07-06] MEDS ORDERED: METOPROLOL TARTRATE 5 MG/5 ML VIAL IVP STA ×2 (11:40→23:30)
[2022-07-06 11:54] LABS: Glucose,Whole Blood 305 mg/dL (70-110)
--- NOTE | 2022-07-06 12:00 | P.PN ---
Subjective Progress Note Date: 07/06/22 Principal diagnosis: sepsis Patient is intubated, remains sedated on propofol, he is hypotensive, on IV fluids, bicarbonate infusion as well as pressors norepi and vaso. He also r emains in atrial fibrillation with rapid response. His heart is the 140 range. He remains on amiodarone gtt. Urine output few ccs last night. Objective - Vital Signs Vital signs: Vital Signs Temp 99.9 F H 07/06/22 08:00 Pulse 142 H 07/06/22 10:00 Resp 30 H 07/06/22 10:00 BP 118/57 07/06/22 05:15 Pulse Ox 95 07/06/22 10:00 FiO2 50 07/06/22 10:48 Intake & Output 07/05/22 07/06/22 07/06/22 18:59 06:59 18:59 Intake Total 6451.878 3029.510 931.937 Output Total 322 20 15 Balance 6129.878 3009.510 916.937 Weight 59 kg 67.9 kg Intake: IV 5300 1875 600 Dextrose 5% in Water 1, 1200 1800 600 000 ml @ 150 mls/hr IV . Q7H40M [facility] with Sodium Bicarb (1 Meq/ml) 150 ml Rx#:[id number] Piperacillin-Tazobactam 3 100 75 .375 gm In Sodium Chloride 0.9% 100 ml @ 25 mls/hr IVPB Q8H [facility] Rx#: [id number] Sodium Chloride 0.9% 1, 4000 000 ml @ 999 mls/hr IV . Q1H1M [facility] Rx#:[id number] Intake, IV Titration 676.878 524.510 121.937 Amount Insulin Regular 100 unit 19.734 80.266 In Sodium Chloride 0.9% 100 ml @ Titrate IV .Q0M [facility] Rx#:[id number] Norepinephrine 4 mg In 153.420 Sodium Chloride 0.9% 250 ml @ 0.03 MCG/KG/MIN 6. 744 mls/hr IV .Q24H [facility] Rx#:[id number] Norepinephrine 8 mg In 59.196 41.671 Sodium Chloride 0.9% 250 ml @ 0.03 MCG/KG/MIN 3. 425 mls/hr IV .Q24H [facility] Rx#:[id number] Phenylephrine 100 mg In 408.351 Sodium Chloride 0.9% 250 ml @ 6 MCG/KG/MIN 53.1 mls/hr IV .Q4H43M [facility] Rx# :[id number] Phenylephrine 40 mg In 508.000 Sodium Chloride 0.9% 250 ml @ 1 MCG/KG/MIN 22.479 mls/hr IV .[id number] [facility] Rx #:[id number] propofoL 1,000 mg In 15.458 37.229 Empty Bag 1 bag @ 15 MCG/ KG/MIN 5.31 mls/hr IV . [id number] [facility] Rx#:[id number] Tube Feeding 135 540 180 Blood Product 310 Rc As-1 Unit 310 [id number] Other 30 90 30 Output: Gastric Drainage 275 Urine 47 20 15 Other: Voiding Method Indwelling Catheter Indwelling Catheter Indwelling Catheter # Voids 0 ABP, PAP, CO, CI - Last Documented Arterial Blood Pressure 108/49 - Exam General: sedated, unresponsive, on mechanical ventilation. cachectic Derm: warm, dry, sacral decubitus wounds present on admission Head: atraumatic, normocephalic, symmetric Eyes: no lid lag, anicteric sclera Mouth: no lip lesion, mucus membranes moist Cardiovascular: S1S2 tachy, irregularly irreg, tachycardic, no murmur Lungs: bilateral rhonchi, mechanical breath sounds bilaterally. Abdominal: soft, no guarding, no appreciable organomegaly Ext: no edema, no contractures Neuro: grimaces to sternal rubs, not opening eyes spontaneously - Labs CBC & Chem 7: 07/06/22 04:10 07/06/22 04:10 Labs: Abnormal Lab Results - Last 24 Hours (Table) 07/05/22 07/05/22 07/05/22 Range/Units 08:51 08:51 08:51 RBC 2.09 L (4.30-5.90) m/uL Hgb 6.8 L* (13.0-17.5) gm/dL Hct 22.0 L (39.0-53.0) % MCV 105.1 H (80.0-100.0) fL MCHC 30.9 L (31.0-37.0) g/dL RDW (11.5-15.5) % Plt Count 146 L (150-450) k/uL Lymphocytes # (Manual) 0.81 L (1.0-4.8) k/uL Metamyelocytes # (Man) 0.23 H (0) k/uL Myelocytes # (Manual) 0.12 H (0) k/uL ABG pH (7.35-7.45) ABG pCO2 (35-45) mmHg ABG HCO3 (21-25) mmol/L ABG Total CO2 (19-24) mmol/L ABG O2 Saturation (94-97) % Potassium 5.6 H (3.5-5.1) mmol/L Chloride 110 H (98-107) mmol/L Carbon Dioxide 14 L (22-30) mmol/L BUN 72 H (9-20) mg/dL Creatinine 1.72 H (0.66-1.25) mg/dL Glucose 219 H (74-99) mg/dL POC Glucose (mg/dL) (70-110) mg/dL Hemoglobin A1c (0.0-6.0) % Calcium 5.8 L* (8.4-10.2) mg/dL Ionized Calcium Li (4.5-5.3) mg/dL Phosphorus 5.6 H (2.5-4.5) mg/dL Total Bilirubin (0.2-1.3) mg/dL AST 486 H (17-59) U/L ALT 50 H (4-49) U/L Alkaline Phosphatase 152 H (38-126) U/L Creatine Kinase (55-170) U/L Total Protein 4.1 L (6.3-8.2) g/dL Albumin 1.9 L (3.5-5.0) g/dL Procalcitonin 9.92 H (0.02-0.09) ng/mL Crossmatch 07/05/22 07/05/22 07/05/22 Range/Units 13:32 15:17 17:02 RBC (4.30-5.90) m/uL Hgb (13.0-17.5) gm/dL Hct (39.0-53.0) % MCV (80.0-100.0) fL MCHC (31.0-37.0) g/dL RDW (11.5-15.5) % Plt Count (150-450) k/uL Lymphocytes # (Manual) (1.0-4.8) k/uL Metamyelocytes # (Man) (0) k/uL Myelocytes # (Manual) (0) k/uL ABG pH (7.35-7.45) ABG pCO2 (35-45) mmHg ABG HCO3 (21-25) mmol/L ABG Total CO2 (19-24) mmol/L ABG O2 Saturation (94-97) % Potassium (3.5-5.1) mmol/L Chloride (98-107) mmol/L Carbon Dioxide (22-30) mmol/L BUN (9-20) mg/dL Creatinine (0.66-1.25) mg/dL Glucose (74-99) mg/dL POC Glucose (mg/dL) 250 H 191 H (70-110) mg/dL Hemoglobin A1c (0.0-6.0) % Calcium (8.4-10.2) mg/dL Ionized Calcium Li (4.5-5.3) mg/dL Phosphorus (2.5-4.5) mg/dL Total Bilirubin (0.2-1.3) mg/dL AST (17-59) U/L ALT (4-49) U/L Alkaline Phosphatase (38-126) U/L Creatine Kinase (55-170) U/L Total Protein (6.3-8.2) g/dL Albumin (3.5-5.0) g/dL Procalcitonin (0.02-0.09) ng/mL Crossmatch See Detail 07/05/22 07/05/22 07/05/22 Range/Units 20:06 21:02 21:05 RBC (4.30-5.90) m/uL Hgb (13.0-17.5) gm/dL Hct (39.0-53.0) % MCV (80.0-100.0) fL MCHC (31.0-37.0) g/dL RDW (11.5-15.5) % Plt Count (150-450) k/uL Lymphocytes # (Manual) (1.0-4.8) k/uL Metamyelocytes # (Man) (0) k/uL Myelocytes # (Manual) (0) k/uL ABG pH 7.15 L* (7.35-7.45) ABG pCO2 34 L (35-45) mmHg ABG HCO3 12 L (21-25) mmol/L ABG Total CO2 13 L (19-24) mmol/L ABG O2 Saturation (94-97) % Potassium (3.5-5.1) mmol/L Chloride (98-107) mmol/L Carbon Dioxide (22-30) mmol/L BUN (9-20) mg/dL Creatinine (0.66-1.25) mg/dL Glucose (74-99) mg/dL POC Glucose (mg/dL) 286 H (70-110) mg/dL Hemoglobin A1c (0.0-6.0) % Calcium (8.4-10.2) mg/dL Ionized Calcium Li 3.9 L (4.5-5.3) mg/dL Phosphorus (2.5-4.5) mg/dL Total Bilirubin (0.2-1.3) mg/dL AST (17-59) U/L ALT (4-49) U/L Alkaline Phosphatase (38-126) U/L Creatine Kinase (55-170) U/L Total Protein (6.3-8.2) g/dL Albumin (3.5-5.0) g/dL Procalcitonin (0.02-0.09) ng/mL Crossmatch 07/05/22 07/05/22 07/06/22 Range/Units 21:05 21:05 00:05 RBC 2.71 L (4.30-5.90) m/uL Hgb 8.6 L D (13.0-17.5) gm/dL Hct 28.0 L (39.0-53.0) % MCV 103.2 H (80.0-100.0) fL MCHC 30.8 L (31.0-37.0) g/dL RDW (11.5-15.5) % Plt Count (150-450) k/uL Lymphocytes # (Manual) (1.0-4.8) k/uL Metamyelocytes # (Man) (0) k/uL Myelocytes # (Manual) (0) k/uL ABG pH (7.35-7.45) ABG pCO2 (35-45) mmHg ABG HCO3 (21-25) mmol/L ABG Total CO2 (19-24) mmol/L ABG O2 Saturation (94-97) % Potassium (3.5-5.1) mmol/L Chloride (98-107) mmol/L Carbon Dioxide 11 L (22-30) mmol/L BUN 72 H (9-20) mg/dL Creatinine 2.22 H (0.66-1.25) mg/dL Glucose 281 H (74-99) mg/dL POC Glucose (mg/dL) 327 H (70-110) mg/dL Hemoglobin A1c (0.0-6.0) % Calcium 6.6 L (8.4-10.2) mg/dL Ionized Calcium Li (4.5-5.3) mg/dL Phosphorus (2.5-4.5) mg/dL Total Bilirubin 1.4 H (0.2-1.3) mg/dL AST 4668 H (17-59) U/L ALT 155 H (4-49) U/L Alkaline Phosphatase 170 H (38-126) U/L Creatine Kinase (55-170) U/L Total Protein 4.3 L (6.3-8.2) g/dL Albumin 2.0 L (3.5-5.0) g/dL Procalcitonin (0.02-0.09) ng/mL Crossmatch 07/06/22 07/06/22 07/06/22 Range/Units 04:10 04:10 04:10 RBC 2.66 L (4.30-5.90) m/uL Hgb 8.2 L (13.0-17.5) gm/dL Hct 26.0 L (39.0-53.0) % MCV (80.0-100.0) fL MCHC (31.0-37.0) g/dL RDW 15.7 H (11.5-15.5) % Plt Count 143 L (150-450) k/uL Lymphocytes # (Manual) 0.78 L (1.0-4.8) k/uL Metamyelocytes # (Man) 0.44 H (0) k/uL Myelocytes # (Manual) 0.09 H (0) k/uL ABG pH (7.35-7.45) ABG pCO2 (35-45) mmHg ABG HCO3 (21-25) mmol/L ABG Total CO2 (19-24) mmol/L ABG O2 Saturation (94-97) % Potassium (3.5-5.1) mmol/L Chloride (98-107) mmol/L Carbon Dioxide 19 L (22-30) mmol/L BUN 85 H (9-20) mg/dL Creatinine 2.28 H (0.66-1.25) mg/dL Glucose 368 H (74-99) mg/dL POC Glucose (mg/dL) (70-110) mg/dL Hemoglobin A1c 6.5 H (0.0-6.0) % Calcium 6.0 L* (8.4-10.2) mg/dL Ionized Calcium Li (4.5-5.3) mg/dL Phosphorus (2.5-4.5) mg/dL Total Bilirubin (0.2-1.3) mg/dL AST (17-59) U/L ALT (4-49) U/L Alkaline Phosphatase (38-126) U/L Creatine Kinase (55-170) U/L Total Protein (6.3-8.2) g/dL Albumin (3.5-5.0) g/dL Procalcitonin (0.02-0.09) ng/mL Crossmatch 07/06/22 07/06/22 07/06/22 Range/Units 04:10 04:13 05:01 RBC (4.30-5.90) m/uL Hgb (13.0-17.5) gm/dL Hct (39.0-53.0) % MCV (80.0-100.0) fL MCHC (31.0-37.0) g/dL RDW (11.5-15.5) % Plt Count (150-450) k/uL Lymphocytes # (Manual) (1.0-4.8) k/uL Metamyelocytes # (Man) (0) k/uL Myelocytes # (Manual) (0) k/uL ABG pH (7.35-7.45) ABG pCO2 (35-45) mmHg ABG HCO3 (21-25) mmol/L ABG Total CO2 (19-24) mmol/L ABG O2 Saturation (94-97) % Potassium (3.5-5.1) mmol/L Chloride (98-107) mmol/L Carbon Dioxide (22-30) mmol/L BUN (9-20) mg/dL Creatinine (0.66-1.25) mg/dL Glucose (74-99) mg/dL POC Glucose (mg/dL) 404 H 421 H (70-110) mg/dL Hemoglobin A1c (0.0-6.0) % Calcium (8.4-10.2) mg/dL Ionized Calcium Li (4.5-5.3) mg/dL Phosphorus (2.5-4.5) mg/dL Total Bilirubin (0.2-1.3) mg/dL AST 25463 H (17-59) U/L ALT 633 H (4-49) U/L Alkaline Phosphatase (38-126) U/L Creatine Kinase 468 H (55-170) U/L Total Protein (6.3-8.2) g/dL Albumin (3.5-5.0) g/dL Procalcitonin (0.02-0.09) ng/mL Crossmatch 07/06/22 07/06/22 07/06/22 Range/Units 05:02 05:42 05:57 RBC (4.30-5.90) m/uL Hgb (13.0-17.5) gm/dL Hct (39.0-53.0) % MCV (80.0-100.0) fL MCHC (31.0-37.0) g/dL RDW (11.5-15.5) % Plt Count (150-450) k/uL Lymphocytes # (Manual) (1.0-4.8) k/uL Metamyelocytes # (Man) (0) k/uL Myelocytes # (Manual) (0) k/uL ABG pH (7.35-7.45) ABG pCO2 34 L (35-45) mmHg ABG HCO3 20 L (21-25) mmol/L ABG Total CO2 (19-24) mmol/L ABG O2 Saturation 97.1 H (94-97) % Potassium (3.5-5.1) mmol/L Chloride (98-107) mmol/L Carbon Dioxide (22-30) mmol/L BUN (9-20) mg/dL Creatinine (0.66-1.25) mg/dL Glucose (74-99) mg/dL POC Glucose (mg/dL) 421 H (70-110) mg/dL Hemoglobin A1c (0.0-6.0) % Calcium (8.4-10.2) mg/dL Ionized Calcium Li 3.6 L (4.5-5.3) mg/dL Phosphorus (2.5-4.5) mg/dL Total Bilirubin (0.2-1.3) mg/dL AST (17-59) U/L ALT (4-49) U/L Alkaline Phosphatase (38-126) U/L Creatine Kinase (55-170) U/L Total Protein (6.3-8.2) g/dL Albumin (3.5-5.0) g/dL Procalcitonin (0.02-0.09) ng/mL Crossmatch 07/06/22 07/06/22 07/06/22 Range/Units 06:48 08:03 09:11 RBC (4.30-5.90) m/uL Hgb (13.0-17.5) gm/dL Hct (39.0-53.0) % MCV (80.0-100.0) fL MCHC (31.0-37.0) g/dL RDW (11.5-15.5) % Plt Count (150-450) k/uL Lymphocytes # (Manual) (1.0-4.8) k/uL Metamyelocytes # (Man) (0) k/uL Myelocytes # (Manual) (0) k/uL ABG pH (7.35-7.45) ABG pCO2 (35-45) mmHg ABG HCO3 (21-25) mmol/L ABG Total CO2 (19-24) mmol/L ABG O2 Saturation (94-97) % Potassium (3.5-5.1) mmol/L Chloride (98-107) mmol/L Carbon Dioxide (22-30) mmol/L BUN (9-20) mg/dL Creatinine (0.66-1.25) mg/dL Glucose (74-99) mg/dL POC Glucose (mg/dL) 401 H 367 H 343 H (70-110) mg/dL Hemoglobin A1c (0.0-6.0) % Calcium (8.4-10.2) mg/dL Ionized Calcium Li (4.5-5.3) mg/dL Phosphorus (2.5-4.5) mg/dL Total Bilirubin (0.2-1.3) mg/dL AST (17-59) U/L ALT (4-49) U/L Alkaline Phosphatase (38-126) U/L Creatine Kinase (55-170) U/L Total Protein (6.3-8.2) g/dL Albumin (3.5-5.0) g/dL Procalcitonin (0.02-0.09) ng/mL Crossmatch 07/06/22 07/06/22 Range/Units 10:11 11:17 RBC (4.30-5.90) m/uL Hgb (13.0-17.5) gm/dL Hct (39.0-53.0) % MCV (80.0-100.0) fL MCHC (31.0-37.0) g/dL RDW (11.5-15.5) % Plt Count (150-450) k/uL Lymphocytes # (Manual) (1.0-4.8) k/uL Metamyelocytes # (Man) (0) k/uL Myelocytes # (Manual) (0) k/uL ABG pH (7.35-7.45) ABG pCO2 (35-45) mmHg ABG HCO3 (21-25) mmol/L ABG Total CO2 (19-24) mmol/L ABG O2 Saturation (94-97) % Potassium (3.5-5.1) mmol/L Chloride (98-107) mmol/L Carbon Dioxide (22-30) mmol/L BUN (9-20) mg/dL Creatinine (0.66-1.25) mg/dL Glucose (74-99) mg/dL POC Glucose (mg/dL) 304 H 282 H (70-110) mg/dL Hemoglobin A1c (0.0-6.0) % Calcium (8.4-10.2) mg/dL Ionized Calcium Li (4.5-5.3) mg/dL Phosphorus (2.5-4.5) mg/dL Total Bilirubin (0.2-1.3) mg/dL AST (17-59) U/L ALT (4-49) U/L Alkaline Phosphatase (38-126) U/L Creatine Kinase (55-170) U/L Total Protein (6.3-8.2) g/dL Albumin (3.5-5.0) g/dL Procalcitonin (0.02-0.09) ng/mL Crossmatch Microbiology - Last 24 Hours (Table) 07/05/22 20:41 Gram Stain - Preliminary Sputum Sputum Culture - Preliminary 07/04/22 08:00 Blood Culture - Preliminary Blood No Growth after 48 hours 07/04/22 08:00 Blood Culture - Preliminary Blood No Growth after 48 hours 07/01/22 11:46 Blood Culture - Preliminary Blood No Growth after 96 hours Assessment and Plan Plan: Septic shock, 2/2 aspiration pneumonia Acute hypoxic respiratory failure Sacral decub ulcer present of admission Anuric YUKI Acute lactic acidosis, with anion gap metabolic acidosis Hypokalemia -Continue mechanical ventilation and pressors - continue broad spectrum antibiotics - IV fluid resuscitation, bicarb - nephrology following Acute metabolic encepholopathy Parkinson's disease -continued sinemet, holding amantadine -EEG, no seizures -CT - osseous metastatic disease - likely metabolic Hypernatremia -resolved Hypervolemic hyponatremia present on admission, resolved Acute on chronic systolic Heart Failure Exacerbation - resolved Severe protein calorie malnutrition -PEG feeds Wide complex tachycardia, atrial fibrillation with RVR - not on cardizem due to septic shock , now on amio - cardiology following stage IV prostate cancer -Oncology consult -Also seen by palliative -Prognosis remains poor Chronic conditions: Type II DM, coronary artery disease -Continue with home meds -Insulin sliding scale with blood glucose monitoring DVT prophylaxis -lovenox CODE STATUS: Full Code Anticipated discharge date: pending clinical course Anticipated discharge place: pending clinical course Case was discussed with son at the bedside poor prognosis explained to him but he still wants to ''give his father a chance'.
[2022-07-06] MEDS: ACETAMINOPHEN TAB 325 MG TAB PO PRN (12:19)
--- NOTE | 2022-07-06 12:42 | P.PN ---
Subjective Progress Note Date: 07/06/22 CHIEF COMPLAINT: Malnutrition HISTORY OF PRESENT ILLNESS: Patient remains in the ICU intubated and sedated. He is on norepinephrine and vasopressin. Patient is status post PEG tube placement on 06/30/22. Tube feeds are currently going down the OG tube. Patient is having fevers. WBC 8.7 hemoglobin 8.2 elevated liver enzymes creatinine 2.28 Patient seen and examined with Dr. holland PHYSICAL EXAM: VITAL SIGNS: Reviewed. GENERAL: no acute distress. ABDOMEN: Soft. Nondistended. Nontender. PEG tube site clean dry and intact ASSESSMENT: 1. Moderate protein calorie malnutrition status post PEG tube placement 2. Failed swallow evaluation 3. Dysphagia 4. 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 Parkinson's disease PLAN: -Continue ICU management -Resume tube feeds through the PEG tube -Continue supportive care Physician Vaccine Customer Representative note has been reviewed by physician. Signing provider agrees with the documented findings, assessment, and plan of care. Objective - Vital Signs Vital signs: Vital Signs Temp 99.9 F H 07/06/22 08:00 Pulse 142 H 07/06/22 10:00 Resp 30 H 07/06/22 10:00 BP 118/57 07/06/22 05:15 Pulse Ox 95 07/06/22 10:00 FiO2 50 07/06/22 10:48 Intake & Output 07/05/22 07/06/22 07/06/22 18:59 06:59 18:59 Intake Total 6451.878 3029.510 931.937 Output Total 322 20 15 Balance 6129.878 3009.510 916.937 Weight 59 kg 67.9 kg Intake: IV 5300 1875 600 Dextrose 5% in Water 1, 1200 1800 600 000 ml @ 150 mls/hr IV . Q7H40M SHANELL with Sodium Bicarb (1 Meq/ml) 150 ml Rx#:[id number] Piperacillin-Tazobactam 3 100 75 .375 gm In Sodium Chloride 0.9% 100 ml @ 25 mls/hr IVPB Q8H SHANELL Rx#: [id number] Sodium Chloride 0.9% 1, 4000 000 ml @ 999 mls/hr IV . Q1H1M ONE Rx#:[id number] Intake, IV Titration 676.878 524.510 121.937 Amount Insulin Regular 100 unit 19.734 80.266 In Sodium Chloride 0.9% 100 ml @ Titrate IV .Q0M SHANELL Rx#:[id number] Norepinephrine 4 mg In 153.420 Sodium Chloride 0.9% 250 ml @ 0.03 MCG/KG/MIN 6. 744 mls/hr IV .Q24H SHANELL Rx#:[id number] Norepinephrine 8 mg In 59.196 41.671 Sodium Chloride 0.9% 250 ml @ 0.03 MCG/KG/MIN 3. 425 mls/hr IV .Q24H SHANELL Rx#:[id number] Phenylephrine 100 mg In 408.351 Sodium Chloride 0.9% 250 ml @ 6 MCG/KG/MIN 53.1 mls/hr IV .Q4H43M SHANELL Rx# :[id number] Phenylephrine 40 mg In 508.000 Sodium Chloride 0.9% 250 ml @ 1 MCG/KG/MIN 22.479 mls/hr IV .[id number] SHANELL Rx #:[id number] propofoL 1,000 mg In 15.458 37.229 Empty Bag 1 bag @ 15 MCG/ KG/MIN 5.31 mls/hr IV . [id number] SHANELL Rx#:[id number] Tube Feeding 135 540 180 Blood Product 310 Rc As-1 Unit 310 [id number] Other 30 90 30 Output: Gastric Drainage 275 Urine 47 20 15 Other: Voiding Method Indwelling Catheter Indwelling Catheter Indwelling Catheter # Voids 0 ABP, PAP, CO, CI - Last Documented Arterial Blood Pressure 108/49 - Labs CBC & Chem 7: 07/06/22 04:10 07/06/22 04:10 Labs: Abnormal Lab Results - Last 24 Hours (Table) 07/05/22 07/05/22 07/05/22 Range/Units 08:51 08:51 08:51 RBC 2.09 L (4.30-5.90) m/uL Hgb 6.8 L* (13.0-17.5) gm/dL Hct 22.0 L (39.0-53.0) % MCV 105.1 H (80.0-100.0) fL MCHC 30.9 L (31.0-37.0) g/dL RDW (11.5-15.5) % Plt Count 146 L (150-450) k/uL Lymphocytes # (Manual) 0.81 L (1.0-4.8) k/uL Metamyelocytes # (Man) 0.23 H (0) k/uL Myelocytes # (Manual) 0.12 H (0) k/uL ABG pH (7.35-7.45) ABG pCO2 (35-45) mmHg ABG HCO3 (21-25) mmol/L ABG Total CO2 (19-24) mmol/L ABG O2 Saturation (94-97) % Potassium 5.6 H (3.5-5.1) mmol/L Chloride 110 H (98-107) mmol/L Carbon Dioxide 14 L (22-30) mmol/L BUN 72 H (9-20) mg/dL Creatinine 1.72 H (0.66-1.25) mg/dL Glucose 219 H (74-99) mg/dL POC Glucose (mg/dL) (70-110) mg/dL Hemoglobin A1c (0.0-6.0) % Calcium 5.8 L* (8.4-10.2) mg/dL Ionized Calcium Li (4.5-5.3) mg/dL Phosphorus 5.6 H (2.5-4.5) mg/dL Total Bilirubin (0.2-1.3) mg/dL AST 486 H (17-59) U/L ALT 50 H (4-49) U/L Alkaline Phosphatase 152 H (38-126) U/L Creatine Kinase (55-170) U/L Total Protein 4.1 L (6.3-8.2) g/dL Albumin 1.9 L (3.5-5.0) g/dL Procalcitonin 9.92 H (0.02-0.09) ng/mL Crossmatch 07/05/22 07/05/22 07/05/22 Range/Units 13:32 15:17 17:02 RBC (4.30-5.90) m/uL Hgb (13.0-17.5) gm/dL Hct (39.0-53.0) % MCV (80.0-100.0) fL MCHC (31.0-37.0) g/dL RDW (11.5-15.5) % Plt Count (150-450) k/uL Lymphocytes # (Manual) (1.0-4.8) k/uL Metamyelocytes # (Man) (0) k/uL Myelocytes # (Manual) (0) k/uL ABG pH (7.35-7.45) ABG pCO2 (35-45) mmHg ABG HCO3 (21-25) mmol/L ABG Total CO2 (19-24) mmol/L ABG O2 Saturation (94-97) % Potassium (3.5-5.1) mmol/L Chloride (98-107) mmol/L Carbon Dioxide (22-30) mmol/L BUN (9-20) mg/dL Creatinine (0.66-1.25) mg/dL Glucose (74-99) mg/dL POC Glucose (mg/dL) 250 H 191 H (70-110) mg/dL Hemoglobin A1c (0.0-6.0) % Calcium (8.4-10.2) mg/dL Ionized Calcium Li (4.5-5.3) mg/dL Phosphorus (2.5-4.5) mg/dL Total Bilirubin (0.2-1.3) mg/dL AST (17-59) U/L ALT (4-49) U/L Alkaline Phosphatase (38-126) U/L Creatine Kinase (55-170) U/L Total Protein (6.3-8.2) g/dL Albumin (3.5-5.0) g/dL Procalcitonin (0.02-0.09) ng/mL Crossmatch See Detail 07/05/22 07/05/22 07/05/22 Range/Units 20:06 21:02 21:05 RBC (4.30-5.90) m/uL Hgb (13.0-17.5) gm/dL Hct (39.0-53.0) % MCV (80.0-100.0) fL MCHC (31.0-37.0) g/dL RDW (11.5-15.5) % Plt Count (150-450) k/uL Lymphocytes # (Manual) (1.0-4.8) k/uL Metamyelocytes # (Man) (0) k/uL Myelocytes # (Manual) (0) k/uL ABG pH 7.15 L* (7.35-7.45) ABG pCO2 34 L (35-45) mmHg ABG HCO3 12 L (21-25) mmol/L ABG Total CO2 13 L (19-24) mmol/L ABG O2 Saturation (94-97) % Potassium (3.5-5.1) mmol/L Chloride (98-107) mmol/L Carbon Dioxide (22-30) mmol/L BUN (9-20) mg/dL Creatinine (0.66-1.25) mg/dL Glucose (74-99) mg/dL POC Glucose (mg/dL) 286 H (70-110) mg/dL Hemoglobin A1c (0.0-6.0) % Calcium (8.4-10.2) mg/dL Ionized Calcium Li 3.9 L (4.5-5.3) mg/dL Phosphorus (2.5-4.5) mg/dL Total Bilirubin (0.2-1.3) mg/dL AST (17-59) U/L ALT (4-49) U/L Alkaline Phosphatase (38-126) U/L Creatine Kinase (55-170) U/L Total Protein (6.3-8.2) g/dL Albumin (3.5-5.0) g/dL Procalcitonin (0.02-0.09) ng/mL Crossmatch 07/05/22 07/05/22 07/06/22 Range/Units 21:05 21:05 00:05 RBC 2.71 L (4.30-5.90) m/uL Hgb 8.6 L D (13.0-17.5) gm/dL Hct 28.0 L (39.0-53.0) % MCV 103.2 H (80.0-100.0) fL MCHC 30.8 L (31.0-37.0) g/dL RDW (11.5-15.5) % Plt Count (150-450) k/uL Lymphocytes # (Manual) (1.0-4.8) k/uL Metamyelocytes # (Man) (0) k/uL Myelocytes # (Manual) (0) k/uL ABG pH (7.35-7.45) ABG pCO2 (35-45) mmHg ABG HCO3 (21-25) mmol/L ABG Total CO2 (19-24) mmol/L ABG O2 Saturation (94-97) % Potassium (3.5-5.1) mmol/L Chloride (98-107) mmol/L Carbon Dioxide 11 L (22-30) mmol/L BUN 72 H (9-20) mg/dL Creatinine 2.22 H (0.66-1.25) mg/dL Glucose 281 H (74-99) mg/dL POC Glucose (mg/dL) 327 H (70-110) mg/dL Hemoglobin A1c (0.0-6.0) % Calcium 6.6 L (8.4-10.2) mg/dL Ionized Calcium Li (4.5-5.3) mg/dL Phosphorus (2.5-4.5) mg/dL Total Bilirubin 1.4 H (0.2-1.3) mg/dL AST 4668 H (17-59) U/L ALT 155 H (4-49) U/L Alkaline Phosphatase 170 H (38-126) U/L Creatine Kinase (55-170) U/L Total Protein 4.3 L (6.3-8.2) g/dL Albumin 2.0 L (3.5-5.0) g/dL Procalcitonin (0.02-0.09) ng/mL Crossmatch 07/06/22 07/06/22 07/06/22 Range/Units 04:10 04:10 04:10 RBC 2.66 L (4.30-5.90) m/uL Hgb 8.2 L (13.0-17.5) gm/dL Hct 26.0 L (39.0-53.0) % MCV (80.0-100.0) fL MCHC (31.0-37.0) g/dL RDW 15.7 H (11.5-15.5) % Plt Count 143 L (150-450) k/uL Lymphocytes # (Manual) 0.78 L (1.0-4.8) k/uL Metamyelocytes # (Man) 0.44 H (0) k/uL Myelocytes # (Manual) 0.09 H (0) k/uL ABG pH (7.35-7.45) ABG pCO2 (35-45) mmHg ABG HCO3 (21-25) mmol/L ABG Total CO2 (19-24) mmol/L ABG O2 Saturation (94-97) % Potassium (3.5-5.1) mmol/L Chloride (98-107) mmol/L Carbon Dioxide 19 L (22-30) mmol/L BUN 85 H (9-20) mg/dL Creatinine 2.28 H (0.66-1.25) mg/dL Glucose 368 H (74-99) mg/dL POC Glucose (mg/dL) (70-110) mg/dL Hemoglobin A1c 6.5 H (0.0-6.0) % Calcium 6.0 L* (8.4-10.2) mg/dL Ionized Calcium Li (4.5-5.3) mg/dL Phosphorus (2.5-4.5) mg/dL Total Bilirubin (0.2-1.3) mg/dL AST (17-59) U/L ALT (4-49) U/L Alkaline Phosphatase (38-126) U/L Creatine Kinase (55-170) U/L Total Protein (6.3-8.2) g/dL Albumin (3.5-5.0) g/dL Procalcitonin (0.02-0.09) ng/mL Crossmatch 07/06/22 07/06/22 07/06/22 Range/Units 04:10 04:13 05:01 RBC (4.30-5.90) m/uL Hgb (13.0-17.5) gm/dL Hct (39.0-53.0) % MCV (80.0-100.0) fL MCHC (31.0-37.0) g/dL RDW (11.5-15.5) % Plt Count (150-450) k/uL Lymphocytes # (Manual) (1.0-4.8) k/uL Metamyelocytes # (Man) (0) k/uL Myelocytes # (Manual) (0) k/uL ABG pH (7.35-7.45) ABG pCO2 (35-45) mmHg ABG HCO3 (21-25) mmol/L ABG Total CO2 (19-24) mmol/L ABG O2 Saturation (94-97) % Potassium (3.5-5.1) mmol/L Chloride (98-107) mmol/L Carbon Dioxide (22-30) mmol/L BUN (9-20) mg/dL Creatinine (0.66-1.25) mg/dL Glucose (74-99) mg/dL POC Glucose (mg/dL) 404 H 421 H (70-110) mg/dL Hemoglobin A1c (0.0-6.0) % Calcium (8.4-10.2) mg/dL Ionized Calcium Li (4.5-5.3) mg/dL Phosphorus (2.5-4.5) mg/dL Total Bilirubin (0.2-1.3) mg/dL AST 90219 H (17-59) U/L ALT 633 H (4-49) U/L Alkaline Phosphatase (38-126) U/L Creatine Kinase 468 H (55-170) U/L Total Protein (6.3-8.2) g/dL Albumin (3.5-5.0) g/dL Procalcitonin (0.02-0.09) ng/mL Crossmatch 07/06/22 07/06/22 07/06/22 Range/Units 05:02 05:42 05:57 RBC (4.30-5.90) m/uL Hgb (13.0-17.5) gm/dL Hct (39.0-53.0) % MCV (80.0-100.0) fL MCHC (31.0-37.0) g/dL RDW (11.5-15.5) % Plt Count (150-450) k/uL Lymphocytes # (Manual) (1.0-4.8) k/uL Metamyelocytes # (Man) (0) k/uL Myelocytes # (Manual) (0) k/uL ABG pH (7.35-7.45) ABG pCO2 34 L (35-45) mmHg ABG HCO3 20 L (21-25) mmol/L ABG Total CO2 (19-24) mmol/L ABG O2 Saturation 97.1 H (94-97) % Potassium (3.5-5.1) mmol/L Chloride (98-107) mmol/L Carbon Dioxide (22-30) mmol/L BUN (9-20) mg/dL Creatinine (0.66-1.25) mg/dL Glucose (74-99) mg/dL POC Glucose (mg/dL) 421 H (70-110) mg/dL Hemoglobin A1c (0.0-6.0) % Calcium (8.4-10.2) mg/dL Ionized Calcium Li 3.6 L (4.5-5.3) mg/dL Phosphorus (2.5-4.5) mg/dL Total Bilirubin (0.2-1.3) mg/dL AST (17-59) U/L ALT (4-49) U/L Alkaline Phosphatase (38-126) U/L Creatine Kinase (55-170) U/L Total Protein (6.3-8.2) g/dL Albumin (3.5-5.0) g/dL Procalcitonin (0.02-0.09) ng/mL Crossmatch 07/06/22 07/06/22 07/06/22 Range/Units 06:48 08:03 09:11 RBC (4.30-5.90) m/uL Hgb (13.0-17.5) gm/dL Hct (39.0-53.0) % MCV (80.0-100.0) fL MCHC (31.0-37.0) g/dL RDW (11.5-15.5) % Plt Count (150-450) k/uL Lymphocytes # (Manual) (1.0-4.8) k/uL Metamyelocytes # (Man) (0) k/uL Myelocytes # (Manual) (0) k/uL ABG pH (7.35-7.45) ABG pCO2 (35-45) mmHg ABG HCO3 (21-25) mmol/L ABG Total CO2 (19-24) mmol/L ABG O2 Saturation (94-97) % Potassium (3.5-5.1) mmol/L Chloride (98-107) mmol/L Carbon Dioxide (22-30) mmol/L BUN (9-20) mg/dL Creatinine (0.66-1.25) mg/dL Glucose (74-99) mg/dL POC Glucose (mg/dL) 401 H 367 H 343 H (70-110) mg/dL Hemoglobin A1c (0.0-6.0) % Calcium (8.4-10.2) mg/dL Ionized Calcium Li (4.5-5.3) mg/dL Phosphorus (2.5-4.5) mg/dL Total Bilirubin (0.2-1.3) mg/dL AST (17-59) U/L ALT (4-49) U/L Alkaline Phosphatase (38-126) U/L Creatine Kinase (55-170) U/L Total Protein (6.3-8.2) g/dL Albumin (3.5-5.0) g/dL Procalcitonin (0.02-0.09) ng/mL Crossmatch 07/06/22 07/06/22 07/06/22 Range/Units 10:11 11:17 11:52 RBC (4.30-5.90) m/uL Hgb (13.0-17.5) gm/dL Hct (39.0-53.0) % MCV (80.0-100.0) fL MCHC (31.0-37.0) g/dL RDW (11.5-15.5) % Plt Count (150-450) k/uL Lymphocytes # (Manual) (1.0-4.8) k/uL Metamyelocytes # (Man) (0) k/uL Myelocytes # (Manual) (0) k/uL ABG pH (7.35-7.45) ABG pCO2 (35-45) mmHg ABG HCO3 (21-25) mmol/L ABG Total CO2 (19-24) mmol/L ABG O2 Saturation (94-97) % Potassium (3.5-5.1) mmol/L Chloride (98-107) mmol/L Carbon Dioxide (22-30) mmol/L BUN (9-20) mg/dL Creatinine (0.66-1.25) mg/dL Glucose (74-99) mg/dL POC Glucose (mg/dL) 304 H 282 H 305 H (70-110) mg/dL Hemoglobin A1c (0.0-6.0) % Calcium (8.4-10.2) mg/dL Ionized Calcium Li (4.5-5.3) mg/dL Phosphorus (2.5-4.5) mg/dL Total Bilirubin (0.2-1.3) mg/dL AST (17-59) U/L ALT (4-49) U/L Alkaline Phosphatase (38-126) U/L Creatine Kinase (55-170) U/L Total Protein (6.3-8.2) g/dL Albumin (3.5-5.0) g/dL Procalcitonin (0.02-0.09) ng/mL Crossmatch Microbiology - Last 24 Hours (Table) 07/05/22 20:41 Gram Stain - Preliminary Sputum Sputum Culture - Preliminary 07/04/22 08:00 Blood Culture - Preliminary Blood No Growth after 48 hours 07/04/22 08:00 Blood Culture - Preliminary Blood No Growth after 48 hours 07/01/22 11:46 Blood Culture - Preliminary Blood No Growth after 96 hours
[2022-07-06 13:15] LABS: Glucose,Whole Blood 227 mg/dL (70-110)
[2022-07-06] MEDS: NOREPINEPHRINE 8 MG in SODIUM CHLORIDE 0.9% 250 ML IV SCH ×2 (13:17→20:02)
[2022-07-06] MEDS ORDERED: SODIUM CHLORIDE 0.9% 1,000 ML IV ONE (14:00)
[2022-07-06 14:10] LABS: Glucose,Whole Blood 184 mg/dL (70-110)
[2022-07-06] MEDS ORDERED: ACETAMINOPHEN IV (For NPO) 1,000 MG in EMPTY BAG 1 BAG IVPB PRN (14:40)
[2022-07-06 15:00] LABS: Glucose,Whole Blood 173 mg/dL (70-110)
[2022-07-06 17:08] LABS: Glucose,Whole Blood 117 mg/dL (70-110)
--- NOTE | 2022-07-06 17:48 | P.PN ---
Subjective Progress Note Date: 07/05/22 07/05/2022: Patient's son was present today. Patient apparently was transferred to ICU at 7:30 AM because of impending respiratory failure, agonal breathing. Patient was intubated at 8:30 AM today. Patient is on maximum dose of Mustapha- Synephrine. Patient currently on propofol 10 mcg/g/m. Patient will be receiving 1 unit of packed RBC. Patient said has numerous questions about his neurological and medical status. He wants to make sure patient receives his dose of Sinemet. I'll related to the nurse. Myoclonic jerk has remarkably reduce. 07/04/2022: Patient was seen for a follow-up. Patient's son was present today. Per his report, patient has become slightly worse today. He is breathing at 30/m. He is saturating at 91% on 15 L a minute of facemask. His myoclonic twitching has improved. Patient still very lethargic. 06/26/2022: Patient was seen for a follow-up. Patient's aunt was present today as well. Still not able to meet patient's son. Patient's aunt has mentioned that patient's daughter who lives in [place] wants comfort care, whereas the son wants full code, and all treatments possible. Patient appears more comfortable today. Less myoclonic jerks. Objective - Vital Signs Vital signs: Vital Signs Temp 98.4 F 07/06/22 16:00 Pulse 156 H 07/06/22 17:00 Resp 23 07/06/22 17:00 BP 135/65 07/06/22 13:05 Pulse Ox 100 07/06/22 17:00 FiO2 50 07/06/22 16:00 Intake & Output 07/05/22 07/06/22 07/06/22 18:59 06:59 18:59 Intake Total 6451.878 3029.510 3756.833 Output Total 322 20 20 Balance 6129.878 3009.510 3736.833 Weight 59 kg 67.9 kg Intake: IV 5300 1875 2650 Dextrose 5% in Water 1, 1200 1800 1650 000 ml @ 150 mls/hr IV . Q7H40M SHANELL with Sodium Bicarb (1 Meq/ml) 150 ml Rx#:[id number] Piperacillin-Tazobactam 3 100 75 .375 gm In Sodium Chloride 0.9% 100 ml @ 25 mls/hr IVPB Q8H [facility] Rx#: [id number] Sodium Chloride 0.9% 1, 4000 000 ml @ 999 mls/hr IV . Q1H1M [facility] Rx#:[id number] Sodium Chloride 0.9% 1, 1000 000 ml @ 999 mls/hr IV . Q1H1M [facility] Rx#:[id number] Intake, IV Titration 676.878 524.510 566.833 Amount Insulin Regular 100 unit 19.734 212.649 In Sodium Chloride 0.9% 100 ml @ Titrate IV .Q0M [facility] Rx#:[id number] Norepinephrine 4 mg In 153.420 Sodium Chloride 0.9% 250 ml @ 0.03 MCG/KG/MIN 6. 744 mls/hr IV .Q24H [facility] Rx#:[id number] Norepinephrine 8 mg In 59.196 227.855 Sodium Chloride 0.9% 250 ml @ 0.03 MCG/KG/MIN 3. 425 mls/hr IV .Q24H [facility] Rx#:[id number] Phenylephrine 100 mg In 408.351 Sodium Chloride 0.9% 250 ml @ 6 MCG/KG/MIN 53.1 mls/hr IV .Q4H43M [facility] Rx# :[id number] Phenylephrine 40 mg In 508.000 Sodium Chloride 0.9% 250 ml @ 1 MCG/KG/MIN 22.479 mls/hr IV .[id number] [facility] Rx #:[id number] Vasopressin 60 unit In 61.429 Sodium Chloride 0.9% 150 ml @ 0.03 UNITS/MIN 4.59 mls/hr IV .Q24H [facility] Rx#: [id number] propofoL 1,000 mg In 15.458 37.229 64.9 Empty Bag 1 bag @ 15 MCG/ KG/MIN 5.31 mls/hr IV . [id number] [facility] Rx#:[id number] Tube Feeding 135 540 450 Blood Product 310 Rc As-1 Unit 310 [id number] Other 30 90 90 Output: Gastric Drainage 275 Urine 47 20 20 Other: Voiding Method Indwelling Catheter Indwelling Catheter Indwelling Catheter # Voids 0 ABP, PAP, CO, CI - Last Documented Arterial Blood Pressure 89/48 - Exam Patient is obtunded,, intubated now, mildly sedated with propofol 10 mcg/kg/m. Patient appears emaciated. Pupils are equal and reactive. No myoclonic jerks. Still has petichae in his arms. Patient has moderate peripheral edema. Appears very pale, extremely sick. - Labs CBC & Chem 7: 07/06/22 04:10 07/06/22 04:10 Labs: Abnormal Lab Results - Last 24 Hours (Table) 07/05/22 07/05/22 07/05/22 Range/Units 08:51 15:17 20:06 RBC (4.30-5.90) m/uL Hgb (13.0-17.5) gm/dL Hct (39.0-53.0) % MCV (80.0-100.0) fL MCHC (31.0-37.0) g/dL RDW (11.5-15.5) % Plt Count (150-450) k/uL Lymphocytes # (Manual) (1.0-4.8) k/uL Metamyelocytes # (Man) (0) k/uL Myelocytes # (Manual) (0) k/uL ABG pH (7.35-7.45) ABG pCO2 (35-45) mmHg ABG HCO3 (21-25) mmol/L ABG Total CO2 (19-24) mmol/L ABG O2 Saturation (94-97) % Carbon Dioxide (22-30) mmol/L BUN (9-20) mg/dL Creatinine (0.66-1.25) mg/dL Glucose (74-99) mg/dL POC Glucose (mg/dL) 286 H (70-110) mg/dL Hemoglobin A1c (0.0-6.0) % Calcium (8.4-10.2) mg/dL Ionized Calcium Li (4.5-5.3) mg/dL Total Bilirubin (0.2-1.3) mg/dL AST (17-59) U/L ALT (4-49) U/L Alkaline Phosphatase (38-126) U/L Creatine Kinase (55-170) U/L Total Protein (6.3-8.2) g/dL Albumin (3.5-5.0) g/dL Procalcitonin 9.92 H (0.02-0.09) ng/mL Crossmatch See Detail 07/05/22 07/05/22 07/05/22 Range/Units 21:02 21:05 21:05 RBC 2.71 L (4.30-5.90) m/uL Hgb 8.6 L D (13.0-17.5) gm/dL Hct 28.0 L (39.0-53.0) % MCV 103.2 H (80.0-100.0) fL MCHC 30.8 L (31.0-37.0) g/dL RDW (11.5-15.5) % Plt Count (150-450) k/uL Lymphocytes # (Manual) (1.0-4.8) k/uL Metamyelocytes # (Man) (0) k/uL Myelocytes # (Manual) (0) k/uL ABG pH 7.15 L* (7.35-7.45) ABG pCO2 34 L (35-45) mmHg ABG HCO3 12 L (21-25) mmol/L ABG Total CO2 13 L (19-24) mmol/L ABG O2 Saturation (94-97) % Carbon Dioxide (22-30) mmol/L BUN (9-20) mg/dL Creatinine (0.66-1.25) mg/dL Glucose (74-99) mg/dL POC Glucose (mg/dL) (70-110) mg/dL Hemoglobin A1c (0.0-6.0) % Calcium (8.4-10.2) mg/dL Ionized Calcium Li 3.9 L (4.5-5.3) mg/dL Total Bilirubin (0.2-1.3) mg/dL AST (17-59) U/L ALT (4-49) U/L Alkaline Phosphatase (38-126) U/L Creatine Kinase (55-170) U/L Total Protein (6.3-8.2) g/dL Albumin (3.5-5.0) g/dL Procalcitonin (0.02-0.09) ng/mL Crossmatch 07/05/22 07/06/22 07/06/22 Range/Units 21:05 00:05 04:10 RBC (4.30-5.90) m/uL Hgb (13.0-17.5) gm/dL Hct (39.0-53.0) % MCV (80.0-100.0) fL MCHC (31.0-37.0) g/dL RDW (11.5-15.5) % Plt Count (150-450) k/uL Lymphocytes # (Manual) (1.0-4.8) k/uL Metamyelocytes # (Man) (0) k/uL Myelocytes # (Manual) (0) k/uL ABG pH (7.35-7.45) ABG pCO2 (35-45) mmHg ABG HCO3 (21-25) mmol/L ABG Total CO2 (19-24) mmol/L ABG O2 Saturation (94-97) % Carbon Dioxide 11 L 19 L (22-30) mmol/L BUN 72 H 85 H (9-20) mg/dL Creatinine 2.22 H 2.28 H (0.66-1.25) mg/dL Glucose 281 H 368 H (74-99) mg/dL POC Glucose (mg/dL) 327 H (70-110) mg/dL Hemoglobin A1c (0.0-6.0) % Calcium 6.6 L 6.0 L* (8.4-10.2) mg/dL Ionized Calcium Li (4.5-5.3) mg/dL Total Bilirubin 1.4 H (0.2-1.3) mg/dL AST 4668 H (17-59) U/L ALT 155 H (4-49) U/L Alkaline Phosphatase 170 H (38-126) U/L Creatine Kinase (55-170) U/L Total Protein 4.3 L (6.3-8.2) g/dL Albumin 2.0 L (3.5-5.0) g/dL Procalcitonin (0.02-0.09) ng/mL Crossmatch 07/06/22 07/06/22 07/06/22 Range/Units 04:10 04:10 04:10 RBC 2.66 L (4.30-5.90) m/uL Hgb 8.2 L (13.0-17.5) gm/dL Hct 26.0 L (39.0-53.0) % MCV (80.0-100.0) fL MCHC (31.0-37.0) g/dL RDW 15.7 H (11.5-15.5) % Plt Count 143 L (150-450) k/uL Lymphocytes # (Manual) 0.78 L (1.0-4.8) k/uL Metamyelocytes # (Man) 0.44 H (0) k/uL Myelocytes # (Manual) 0.09 H (0) k/uL ABG pH (7.35-7.45) ABG pCO2 (35-45) mmHg ABG HCO3 (21-25) mmol/L ABG Total CO2 (19-24) mmol/L ABG O2 Saturation (94-97) % Carbon Dioxide (22-30) mmol/L BUN (9-20) mg/dL Creatinine (0.66-1.25) mg/dL Glucose (74-99) mg/dL POC Glucose (mg/dL) (70-110) mg/dL Hemoglobin A1c 6.5 H (0.0-6.0) % Calcium (8.4-10.2) mg/dL Ionized Calcium Li (4.5-5.3) mg/dL Total Bilirubin (0.2-1.3) mg/dL AST 14517 H (17-59) U/L ALT 633 H (4-49) U/L Alkaline Phosphatase (38-126) U/L Creatine Kinase 468 H (55-170) U/L Total Protein (6.3-8.2) g/dL Albumin (3.5-5.0) g/dL Procalcitonin (0.02-0.09) ng/mL Crossmatch 07/06/22 07/06/22 07/06/22 Range/Units 04:13 05:01 05:02 RBC (4.30-5.90) m/uL Hgb (13.0-17.5) gm/dL Hct (39.0-53.0) % MCV (80.0-100.0) fL MCHC (31.0-37.0) g/dL RDW (11.5-15.5) % Plt Count (150-450) k/uL Lymphocytes # (Manual) (1.0-4.8) k/uL Metamyelocytes # (Man) (0) k/uL Myelocytes # (Manual) (0) k/uL ABG pH (7.35-7.45) ABG pCO2 (35-45) mmHg ABG HCO3 (21-25) mmol/L ABG Total CO2 (19-24) mmol/L ABG O2 Saturation (94-97) % Carbon Dioxide (22-30) mmol/L BUN (9-20) mg/dL Creatinine (0.66-1.25) mg/dL Glucose (74-99) mg/dL POC Glucose (mg/dL) 404 H 421 H (70-110) mg/dL Hemoglobin A1c (0.0-6.0) % Calcium (8.4-10.2) mg/dL Ionized Calcium Li 3.6 L (4.5-5.3) mg/dL Total Bilirubin (0.2-1.3) mg/dL AST (17-59) U/L ALT (4-49) U/L Alkaline Phosphatase (38-126) U/L Creatine Kinase (55-170) U/L Total Protein (6.3-8.2) g/dL Albumin (3.5-5.0) g/dL Procalcitonin (0.02-0.09) ng/mL Crossmatch 07/06/22 07/06/22 07/06/22 Range/Units 05:42 05:57 06:48 RBC (4.30-5.90) m/uL Hgb (13.0-17.5) gm/dL Hct (39.0-53.0) % MCV (80.0-100.0) fL MCHC (31.0-37.0) g/dL RDW (11.5-15.5) % Plt Count (150-450) k/uL Lymphocytes # (Manual) (1.0-4.8) k/uL Metamyelocytes # (Man) (0) k/uL Myelocytes # (Manual) (0) k/uL ABG pH (7.35-7.45) ABG pCO2 34 L (35-45) mmHg ABG HCO3 20 L (21-25) mmol/L ABG Total CO2 (19-24) mmol/L ABG O2 Saturation 97.1 H (94-97) % Carbon Dioxide (22-30) mmol/L BUN (9-20) mg/dL Creatinine (0.66-1.25) mg/dL Glucose (74-99) mg/dL POC Glucose (mg/dL) 421 H 401 H (70-110) mg/dL Hemoglobin A1c (0.0-6.0) % Calcium (8.4-10.2) mg/dL Ionized Calcium Li (4.5-5.3) mg/dL Total Bilirubin (0.2-1.3) mg/dL AST (17-59) U/L ALT (4-49) U/L Alkaline Phosphatase (38-126) U/L Creatine Kinase (55-170) U/L Total Protein (6.3-8.2) g/dL Albumin (3.5-5.0) g/dL Procalcitonin (0.02-0.09) ng/mL Crossmatch 07/06/22 07/06/22 07/06/22 Range/Units 08:03 09:11 10:11 RBC (4.30-5.90) m/uL Hgb (13.0-17.5) gm/dL Hct (39.0-53.0) % MCV (80.0-100.0) fL MCHC (31.0-37.0) g/dL RDW (11.5-15.5) % Plt Count (150-450) k/uL Lymphocytes # (Manual) (1.0-4.8) k/uL Metamyelocytes # (Man) (0) k/uL Myelocytes # (Manual) (0) k/uL ABG pH (7.35-7.45) ABG pCO2 (35-45) mmHg ABG HCO3 (21-25) mmol/L ABG Total CO2 (19-24) mmol/L ABG O2 Saturation (94-97) % Carbon Dioxide (22-30) mmol/L BUN (9-20) mg/dL Creatinine (0.66-1.25) mg/dL Glucose (74-99) mg/dL POC Glucose (mg/dL) 367 H 343 H 304 H (70-110) mg/dL Hemoglobin A1c (0.0-6.0) % Calcium (8.4-10.2) mg/dL Ionized Calcium Li (4.5-5.3) mg/dL Total Bilirubin (0.2-1.3) mg/dL AST (17-59) U/L ALT (4-49) U/L Alkaline Phosphatase (38-126) U/L Creatine Kinase (55-170) U/L Total Protein (6.3-8.2) g/dL Albumin (3.5-5.0) g/dL Procalcitonin (0.02-0.09) ng/mL Crossmatch 07/06/22 07/06/22 07/06/22 Range/Units 11:17 11:52 13:13 RBC (4.30-5.90) m/uL Hgb (13.0-17.5) gm/dL Hct (39.0-53.0) % MCV (80.0-100.0) fL MCHC (31.0-37.0) g/dL RDW (11.5-15.5) % Plt Count (150-450) k/uL Lymphocytes # (Manual) (1.0-4.8) k/uL Metamyelocytes # (Man) (0) k/uL Myelocytes # (Manual) (0) k/uL ABG pH (7.35-7.45) ABG pCO2 (35-45) mmHg ABG HCO3 (21-25) mmol/L ABG Total CO2 (19-24) mmol/L ABG O2 Saturation (94-97) % Carbon Dioxide (22-30) mmol/L BUN (9-20) mg/dL Creatinine (0.66-1.25) mg/dL Glucose (74-99) mg/dL POC Glucose (mg/dL) 282 H 305 H 227 H (70-110) mg/dL Hemoglobin A1c (0.0-6.0) % Calcium (8.4-10.2) mg/dL Ionized Calcium Li (4.5-5.3) mg/dL Total Bilirubin (0.2-1.3) mg/dL AST (17-59) U/L ALT (4-49) U/L Alkaline Phosphatase (38-126) U/L Creatine Kinase (55-170) U/L Total Protein (6.3-8.2) g/dL Albumin (3.5-5.0) g/dL Procalcitonin (0.02-0.09) ng/mL Crossmatch 07/06/22 07/06/22 07/06/22 Range/Units 14:08 14:58 17:06 RBC (4.30-5.90) m/uL Hgb (13.0-17.5) gm/dL Hct (39.0-53.0) % MCV (80.0-100.0) fL MCHC (31.0-37.0) g/dL RDW (11.5-15.5) % Plt Count (150-450) k/uL Lymphocytes # (Manual) (1.0-4.8) k/uL Metamyelocytes # (Man) (0) k/uL Myelocytes # (Manual) (0) k/uL ABG pH (7.35-7.45) ABG pCO2 (35-45) mmHg ABG HCO3 (21-25) mmol/L ABG Total CO2 (19-24) mmol/L ABG O2 Saturation (94-97) % Carbon Dioxide (22-30) mmol/L BUN (9-20) mg/dL Creatinine (0.66-1.25) mg/dL Glucose (74-99) mg/dL POC Glucose (mg/dL) 184 H 173 H 117 H (70-110) mg/dL Hemoglobin A1c (0.0-6.0) % Calcium (8.4-10.2) mg/dL Ionized Calcium Li (4.5-5.3) mg/dL Total Bilirubin (0.2-1.3) mg/dL AST (17-59) U/L ALT (4-49) U/L Alkaline Phosphatase (38-126) U/L Creatine Kinase (55-170) U/L Total Protein (6.3-8.2) g/dL Albumin (3.5-5.0) g/dL Procalcitonin (0.02-0.09) ng/mL Crossmatch Microbiology - Last 24 Hours (Table) 07/01/22 11:46 Blood Culture - Preliminary Blood No Growth after 120 hours 07/05/22 20:41 Gram Stain - Preliminary Sputum Sputum Culture - Preliminary 07/04/22 08:00 Blood Culture - Preliminary Blood No Growth after 48 hours 07/04/22 08:00 Blood Culture - Preliminary Blood No Growth after 48 hours Assessment and Plan Assessment: * Altered mental status, likely due to toxic metabolic encephalopathy. Reasons multifactorial as mentioned below. * Ventilator-dependent respiratory failure, status post intubation today. * Sepsis. * Hyponatremia * Acute pulmonary edema * Metastatic prostate cancer with bony metastasis * CAD * Diabetes * Hyperlipidemia * Hypertension * Parkinson's disease Plan: * Discontinue amantadine * Continue Sinemet 25/100, 2 tablet 4 times a day. Patient's son very persistent to make sure patient deceases Sinemet. * Speech therapy evaluation. * Treatment of other medical conditions as per IM and other specialties. * Prognosis is poor based upon multiple comorbid conditions including terminal prostate cancer. * Discussed with patient's son in detail. * Supportive care.
--- NOTE | 2022-07-06 18:08 | P.PN ---
Subjective Progress Note Date: 07/06/22 07/06/2022: Patient was seen for a follow-up. Patient's daughter and son both were present today. Patient continues to be on propofol 10 g per program per minute. Patient also on very high-dose of levofed at 0.3 mcg/g/m. Patient also has atrial fibrillation with rapid ventricular rate, for which he received Lopressor, which decreased the blood pressure earlier. Also on NeoSynephrine. Patient is not twitching anymore. Patient's daughter has noticed that sometimes his forehead would twitch. 07/05/2022: Patient's son was present today. Patient apparently was transferred to ICU at 7:30 AM because of impending respiratory failure, agonal breathing. Patient was intubated at 8:30 AM today. Patient is on maximum dose of Mustapha- Synephrine. Patient currently on propofol 10 mcg/g/m. Patient will be receiving 1 unit of packed RBC. Patient said has numerous questions about his neurological and medical status. He wants to make sure patient receives his dose of Sinemet. I'll related to the nurse. Myoclonic jerk has remarkably reduce. 07/04/2022: Patient was seen for a follow-up. Patient's son was present today. Per his report, patient has become slightly worse today. He is breathing at 30/m. He is saturating at 91% on 15 L a minute of facemask. His myoclonic twitching has improved. Patient still very lethargic. 06/26/2022: Patient was seen for a follow-up. Patient's aunt was present today as well. Still not able to meet patient's son. Patient's aunt has mentioned that patient's daughter who lives in [place] wants comfort care, whereas the son wants full code, and all treatments possible. Patient appears more comfortable today. Less myoclonic jerks. Objective - Vital Signs Vital signs: Vital Signs Temp 98.4 F 07/06/22 16:00 Pulse 156 H 07/06/22 17:00 Resp 23 07/06/22 17:00 BP 135/65 07/06/22 13:05 Pulse Ox 100 07/06/22 17:00 FiO2 50 07/06/22 16:00 Intake & Output 07/05/22 07/06/22 07/06/22 18:59 06:59 18:59 Intake Total 6451.878 3029.510 3910.441 Output Total 322 20 20 Balance 6129.878 3009.510 3890.441 Weight 59 kg 67.9 kg Intake: IV 5300 1875 2650 Dextrose 5% in Water 1, 1200 1800 1650 000 ml @ 150 mls/hr IV . Q7H40M [facility] with Sodium Bicarb (1 Meq/ml) 150 ml Rx#:[id number] Piperacillin-Tazobactam 3 100 75 .375 gm In Sodium Chloride 0.9% 100 ml @ 25 mls/hr IVPB Q8H [facility] Rx#: [id number] Sodium Chloride 0.9% 1, 4000 000 ml @ 999 mls/hr IV . Q1H1M [facility] Rx#:[id number] Sodium Chloride 0.9% 1, 1000 000 ml @ 999 mls/hr IV . Q1H1M [facility] Rx#:[id number] Intake, IV Titration 676.878 524.510 720.441 Amount Insulin Regular 100 unit 19.734 212.649 In Sodium Chloride 0.9% 100 ml @ Titrate IV .Q0M [facility] Rx#:[id number] Norepinephrine 4 mg In 153.420 Sodium Chloride 0.9% 250 ml @ 0.03 MCG/KG/MIN 6. 744 mls/hr IV .Q24H [facility] Rx#:[id number] Norepinephrine 8 mg In 59.196 381.463 Sodium Chloride 0.9% 250 ml @ 0.03 MCG/KG/MIN 3. 425 mls/hr IV .Q24H [facility] Rx#:[id number] Phenylephrine 100 mg In 408.351 Sodium Chloride 0.9% 250 ml @ 6 MCG/KG/MIN 53.1 mls/hr IV .Q4H43M [facility] Rx# :[id number] Phenylephrine 40 mg In 508.000 Sodium Chloride 0.9% 250 ml @ 1 MCG/KG/MIN 22.479 mls/hr IV .V32H12K [facility] Rx #:[id number] Vasopressin 60 unit In 61.429 Sodium Chloride 0.9% 150 ml @ 0.03 UNITS/MIN 4.59 mls/hr IV .Q24H [facility] Rx#: [id number] propofoL 1,000 mg In 15.458 37.229 64.9 Empty Bag 1 bag @ 15 MCG/ KG/MIN 5.31 mls/hr IV . [id number] [facility] Rx#:[id number] Tube Feeding 135 540 450 Blood Product 310 Rc As-1 Unit 310 [id number] Other 30 90 90 Output: Gastric Drainage 275 Urine 47 20 20 Other: Voiding Method Indwelling Catheter Indwelling Catheter Indwelling Catheter # Voids 0 ABP, PAP, CO, CI - Last Documented Arterial Blood Pressure 89/48 - Exam Patient is comatose. Patient does not respond to calling his name. No response to nailbed pressure. Patient is intubated, sedated with propofol 10 mcg/kg/m. Patient appears emaciated. Pupils are equal and reactive. No myoclonic jerks. Still has petichae in his arms. Patient has moderate peripheral edema. Appears very pale, extremely sick. - Labs CBC & Chem 7: 07/06/22 04:10 07/06/22 04:10 Labs: Abnormal Lab Results - Last 24 Hours (Table) 07/05/22 07/05/22 07/05/22 Range/Units 08:51 15:17 20:06 RBC (4.30-5.90) m/uL Hgb (13.0-17.5) gm/dL Hct (39.0-53.0) % MCV (80.0-100.0) fL MCHC (31.0-37.0) g/dL RDW (11.5-15.5) % Plt Count (150-450) k/uL Lymphocytes # (Manual) (1.0-4.8) k/uL Metamyelocytes # (Man) (0) k/uL Myelocytes # (Manual) (0) k/uL ABG pH (7.35-7.45) ABG pCO2 (35-45) mmHg ABG HCO3 (21-25) mmol/L ABG Total CO2 (19-24) mmol/L ABG O2 Saturation (94-97) % Carbon Dioxide (22-30) mmol/L BUN (9-20) mg/dL Creatinine (0.66-1.25) mg/dL Glucose (74-99) mg/dL POC Glucose (mg/dL) 286 H (70-110) mg/dL Hemoglobin A1c (0.0-6.0) % Calcium (8.4-10.2) mg/dL Ionized Calcium Li (4.5-5.3) mg/dL Total Bilirubin (0.2-1.3) mg/dL AST (17-59) U/L ALT (4-49) U/L Alkaline Phosphatase (38-126) U/L Creatine Kinase (55-170) U/L Total Protein (6.3-8.2) g/dL Albumin (3.5-5.0) g/dL Procalcitonin 9.92 H (0.02-0.09) ng/mL Crossmatch See Detail 07/05/22 07/05/22 07/05/22 Range/Units 21:02 21:05 21:05 RBC 2.71 L (4.30-5.90) m/uL Hgb 8.6 L D (13.0-17.5) gm/dL Hct 28.0 L (39.0-53.0) % MCV 103.2 H (80.0-100.0) fL MCHC 30.8 L (31.0-37.0) g/dL RDW (11.5-15.5) % Plt Count (150-450) k/uL Lymphocytes # (Manual) (1.0-4.8) k/uL Metamyelocytes # (Man) (0) k/uL Myelocytes # (Manual) (0) k/uL ABG pH 7.15 L* (7.35-7.45) ABG pCO2 34 L (35-45) mmHg ABG HCO3 12 L (21-25) mmol/L ABG Total CO2 13 L (19-24) mmol/L ABG O2 Saturation (94-97) % Carbon Dioxide (22-30) mmol/L BUN (9-20) mg/dL Creatinine (0.66-1.25) mg/dL Glucose (74-99) mg/dL POC Glucose (mg/dL) (70-110) mg/dL Hemoglobin A1c (0.0-6.0) % Calcium (8.4-10.2) mg/dL Ionized Calcium Li 3.9 L (4.5-5.3) mg/dL Total Bilirubin (0.2-1.3) mg/dL AST (17-59) U/L ALT (4-49) U/L Alkaline Phosphatase (38-126) U/L Creatine Kinase (55-170) U/L Total Protein (6.3-8.2) g/dL Albumin (3.5-5.0) g/dL Procalcitonin (0.02-0.09) ng/mL Crossmatch 07/05/22 07/06/22 07/06/22 Range/Units 21:05 00:05 04:10 RBC (4.30-5.90) m/uL Hgb (13.0-17.5) gm/dL Hct (39.0-53.0) % MCV (80.0-100.0) fL MCHC (31.0-37.0) g/dL RDW (11.5-15.5) % Plt Count (150-450) k/uL Lymphocytes # (Manual) (1.0-4.8) k/uL Metamyelocytes # (Man) (0) k/uL Myelocytes # (Manual) (0) k/uL ABG pH (7.35-7.45) ABG pCO2 (35-45) mmHg ABG HCO3 (21-25) mmol/L ABG Total CO2 (19-24) mmol/L ABG O2 Saturation (94-97) % Carbon Dioxide 11 L 19 L (22-30) mmol/L BUN 72 H 85 H (9-20) mg/dL Creatinine 2.22 H 2.28 H (0.66-1.25) mg/dL Glucose 281 H 368 H (74-99) mg/dL POC Glucose (mg/dL) 327 H (70-110) mg/dL Hemoglobin A1c (0.0-6.0) % Calcium 6.6 L 6.0 L* (8.4-10.2) mg/dL Ionized Calcium Li (4.5-5.3) mg/dL Total Bilirubin 1.4 H (0.2-1.3) mg/dL AST 4668 H (17-59) U/L ALT 155 H (4-49) U/L Alkaline Phosphatase 170 H (38-126) U/L Creatine Kinase (55-170) U/L Total Protein 4.3 L (6.3-8.2) g/dL Albumin 2.0 L (3.5-5.0) g/dL Procalcitonin (0.02-0.09) ng/mL Crossmatch 07/06/22 07/06/22 07/06/22 Range/Units 04:10 04:10 04:10 RBC 2.66 L (4.30-5.90) m/uL Hgb 8.2 L (13.0-17.5) gm/dL Hct 26.0 L (39.0-53.0) % MCV (80.0-100.0) fL MCHC (31.0-37.0) g/dL RDW 15.7 H (11.5-15.5) % Plt Count 143 L (150-450) k/uL Lymphocytes # (Manual) 0.78 L (1.0-4.8) k/uL Metamyelocytes # (Man) 0.44 H (0) k/uL Myelocytes # (Manual) 0.09 H (0) k/uL ABG pH (7.35-7.45) ABG pCO2 (35-45) mmHg ABG HCO3 (21-25) mmol/L ABG Total CO2 (19-24) mmol/L ABG O2 Saturation (94-97) % Carbon Dioxide (22-30) mmol/L BUN (9-20) mg/dL Creatinine (0.66-1.25) mg/dL Glucose (74-99) mg/dL POC Glucose (mg/dL) (70-110) mg/dL Hemoglobin A1c 6.5 H (0.0-6.0) % Calcium (8.4-10.2) mg/dL Ionized Calcium Li (4.5-5.3) mg/dL Total Bilirubin (0.2-1.3) mg/dL AST 81023 H (17-59) U/L ALT 633 H (4-49) U/L Alkaline Phosphatase (38-126) U/L Creatine Kinase 468 H (55-170) U/L Total Protein (6.3-8.2) g/dL Albumin (3.5-5.0) g/dL Procalcitonin (0.02-0.09) ng/mL Crossmatch 07/06/22 07/06/22 07/06/22 Range/Units 04:13 05:01 05:02 RBC (4.30-5.90) m/uL Hgb (13.0-17.5) gm/dL Hct (39.0-53.0) % MCV (80.0-100.0) fL MCHC (31.0-37.0) g/dL RDW (11.5-15.5) % Plt Count (150-450) k/uL Lymphocytes # (Manual) (1.0-4.8) k/uL Metamyelocytes # (Man) (0) k/uL Myelocytes # (Manual) (0) k/uL ABG pH (7.35-7.45) ABG pCO2 (35-45) mmHg ABG HCO3 (21-25) mmol/L ABG Total CO2 (19-24) mmol/L ABG O2 Saturation (94-97) % Carbon Dioxide (22-30) mmol/L BUN (9-20) mg/dL Creatinine (0.66-1.25) mg/dL Glucose (74-99) mg/dL POC Glucose (mg/dL) 404 H 421 H (70-110) mg/dL Hemoglobin A1c (0.0-6.0) % Calcium (8.4-10.2) mg/dL Ionized Calcium Li 3.6 L (4.5-5.3) mg/dL Total Bilirubin (0.2-1.3) mg/dL AST (17-59) U/L ALT (4-49) U/L Alkaline Phosphatase (38-126) U/L Creatine Kinase (55-170) U/L Total Protein (6.3-8.2) g/dL Albumin (3.5-5.0) g/dL Procalcitonin (0.02-0.09) ng/mL Crossmatch 07/06/22 07/06/22 07/06/22 Range/Units 05:42 05:57 06:48 RBC (4.30-5.90) m/uL Hgb (13.0-17.5) gm/dL Hct (39.0-53.0) % MCV (80.0-100.0) fL MCHC (31.0-37.0) g/dL RDW (11.5-15.5) % Plt Count (150-450) k/uL Lymphocytes # (Manual) (1.0-4.8) k/uL Metamyelocytes # (Man) (0) k/uL Myelocytes # (Manual) (0) k/uL ABG pH (7.35-7.45) ABG pCO2 34 L (35-45) mmHg ABG HCO3 20 L (21-25) mmol/L ABG Total CO2 (19-24) mmol/L ABG O2 Saturation 97.1 H (94-97) % Carbon Dioxide (22-30) mmol/L BUN (9-20) mg/dL Creatinine (0.66-1.25) mg/dL Glucose (74-99) mg/dL POC Glucose (mg/dL) 421 H 401 H (70-110) mg/dL Hemoglobin A1c (0.0-6.0) % Calcium (8.4-10.2) mg/dL Ionized Calcium Li (4.5-5.3) mg/dL Total Bilirubin (0.2-1.3) mg/dL AST (17-59) U/L ALT (4-49) U/L Alkaline Phosphatase (38-126) U/L Creatine Kinase (55-170) U/L Total Protein (6.3-8.2) g/dL Albumin (3.5-5.0) g/dL Procalcitonin (0.02-0.09) ng/mL Crossmatch 07/06/22 07/06/22 07/06/22 Range/Units 08:03 09:11 10:11 RBC (4.30-5.90) m/uL Hgb (13.0-17.5) gm/dL Hct (39.0-53.0) % MCV (80.0-100.0) fL MCHC (31.0-37.0) g/dL RDW (11.5-15.5) % Plt Count (150-450) k/uL Lymphocytes # (Manual) (1.0-4.8) k/uL Metamyelocytes # (Man) (0) k/uL Myelocytes # (Manual) (0) k/uL ABG pH (7.35-7.45) ABG pCO2 (35-45) mmHg ABG HCO3 (21-25) mmol/L ABG Total CO2 (19-24) mmol/L ABG O2 Saturation (94-97) % Carbon Dioxide (22-30) mmol/L BUN (9-20) mg/dL Creatinine (0.66-1.25) mg/dL Glucose (74-99) mg/dL POC Glucose (mg/dL) 367 H 343 H 304 H (70-110) mg/dL Hemoglobin A1c (0.0-6.0) % Calcium (8.4-10.2) mg/dL Ionized Calcium Li (4.5-5.3) mg/dL Total Bilirubin (0.2-1.3) mg/dL AST (17-59) U/L ALT (4-49) U/L Alkaline Phosphatase (38-126) U/L Creatine Kinase (55-170) U/L Total Protein (6.3-8.2) g/dL Albumin (3.5-5.0) g/dL Procalcitonin (0.02-0.09) ng/mL Crossmatch 07/06/22 07/06/22 07/06/22 Range/Units 11:17 11:52 13:13 RBC (4.30-5.90) m/uL Hgb (13.0-17.5) gm/dL Hct (39.0-53.0) % MCV (80.0-100.0) fL MCHC (31.0-37.0) g/dL RDW (11.5-15.5) % Plt Count (150-450) k/uL Lymphocytes # (Manual) (1.0-4.8) k/uL Metamyelocytes # (Man) (0) k/uL Myelocytes # (Manual) (0) k/uL ABG pH (7.35-7.45) ABG pCO2 (35-45) mmHg ABG HCO3 (21-25) mmol/L ABG Total CO2 (19-24) mmol/L ABG O2 Saturation (94-97) % Carbon Dioxide (22-30) mmol/L BUN (9-20) mg/dL Creatinine (0.66-1.25) mg/dL Glucose (74-99) mg/dL POC Glucose (mg/dL) 282 H 305 H 227 H (70-110) mg/dL Hemoglobin A1c (0.0-6.0) % Calcium (8.4-10.2) mg/dL Ionized Calcium Li (4.5-5.3) mg/dL Total Bilirubin (0.2-1.3) mg/dL AST (17-59) U/L ALT (4-49) U/L Alkaline Phosphatase (38-126) U/L Creatine Kinase (55-170) U/L Total Protein (6.3-8.2) g/dL Albumin (3.5-5.0) g/dL Procalcitonin (0.02-0.09) ng/mL Crossmatch 07/06/22 07/06/22 07/06/22 Range/Units 14:08 14:58 17:06 RBC (4.30-5.90) m/uL Hgb (13.0-17.5) gm/dL Hct (39.0-53.0) % MCV (80.0-100.0) fL MCHC (31.0-37.0) g/dL RDW (11.5-15.5) % Plt Count (150-450) k/uL Lymphocytes # (Manual) (1.0-4.8) k/uL Metamyelocytes # (Man) (0) k/uL Myelocytes # (Manual) (0) k/uL ABG pH (7.35-7.45) ABG pCO2 (35-45) mmHg ABG HCO3 (21-25) mmol/L ABG Total CO2 (19-24) mmol/L ABG O2 Saturation (94-97) % Carbon Dioxide (22-30) mmol/L BUN (9-20) mg/dL Creatinine (0.66-1.25) mg/dL Glucose (74-99) mg/dL POC Glucose (mg/dL) 184 H 173 H 117 H (70-110) mg/dL Hemoglobin A1c (0.0-6.0) % Calcium (8.4-10.2) mg/dL Ionized Calcium Li (4.5-5.3) mg/dL Total Bilirubin (0.2-1.3) mg/dL AST (17-59) U/L ALT (4-49) U/L Alkaline Phosphatase (38-126) U/L Creatine Kinase (55-170) U/L Total Protein (6.3-8.2) g/dL Albumin (3.5-5.0) g/dL Procalcitonin (0.02-0.09) ng/mL Crossmatch Microbiology - Last 24 Hours (Table) 07/01/22 11:46 Blood Culture - Preliminary Blood No Growth after 120 hours 07/05/22 20:41 Gram Stain - Preliminary Sputum Sputum Culture - Preliminary 07/04/22 08:00 Blood Culture - Preliminary Blood No Growth after 48 hours 07/04/22 08:00 Blood Culture - Preliminary Blood No Growth after 48 hours Assessment and Plan Assessment: * Altered mental status, likely due to toxic metabolic encephalopathy. Reasons multifactorial as mentioned below. * Ventilator-dependent respiratory failure, status post intubation today. * Possible Sepsis with multiorgan dysfunction. * Hyponatremia, resolved * Acute renal insufficiency/failure, worsening * Elevated liver enzymes due to shock liver * Lactic acidosis * Acute pulmonary edema * Metastatic prostate cancer with bony metastasis * CAD * Diabetes * Hyperlipidemia * Hypertension * Parkinson's disease Plan: * Discontinue amantadine * Continue Sinemet 25/100, 2 tablet 4 times a day. Patient's son very persistent to make sure patient deceases Sinemet. * Treatment of other medical conditions as per critical care, IM and other specialties. * Prognosis is extremely poor based upon multiple comorbid conditions including terminal prostate cancer. * Discussed with patient's son and daughter in detail. They want continue full care at this time. * Supportive care. Discussed with nursing staff.
[2022-07-06 18:17] LABS: Glucose,Whole Blood 103 mg/dL (70-110)
[2022-07-06 19:24] LABS: Glucose,Whole Blood 146 mg/dL (70-110)
[2022-07-06] MEDS: VASOPRESSIN 60 UNIT in SODIUM CHLORIDE 0.9% 150 ML IV SCH (20:02)
[2022-07-06] MEDS: NON FORMULARY DRUG (Enzalutamide [Xtandi] 40 MG Capsule) PO SCH (20:33)
[2022-07-06 21:12] LABS: Glucose,Whole Blood 251 mg/dL (70-110)
[2022-07-06 22:08] LABS: Glucose,Whole Blood 224 mg/dL (70-110)
[2022-07-06 23:00] LABS: Glucose,Whole Blood 206 mg/dL (70-110)
[2022-07-06 23:56] LABS: Glucose,Whole Blood 157 mg/dL (70-110)
[2022-07-07] MEDS: DEXTROSE 5% IN WATER 1,000 ML with SODIUM BICARB (1 MEQ/ML) 150 ML IV SCH ×3 (01:03→17:37)
[2022-07-07 01:04] LABS: Glucose,Whole Blood 150 mg/dL (70-110)
[2022-07-07] MEDS: NOREPINEPHRINE 8 MG in SODIUM CHLORIDE 0.9% 250 ML IV SCH ×5 (01:29→23:25)
[2022-07-07 02:02] LABS: Glucose,Whole Blood 133 mg/dL (70-110)
[2022-07-07 03:02] LABS: Glucose,Whole Blood 142 mg/dL (70-110)
[2022-07-07 03:57] LABS: Glucose,Whole Blood 167 mg/dL (70-110)
[2022-07-07] MEDS: PIPERACILLIN-TAZOBACTAM 3.375 GM in SODIUM CHLORIDE 0.9% 100 ML IVPB SCH ×3 (04:07→20:59)
[2022-07-07 04:24] LABS: Basophils # (A) 0.1 k/uL (0-0.2); Basophils % (A) 0 %; Eosinophils % (A) 0 %; HCT 25.1 % (39.0-53.0); HGB 8.4 gm/dL (13.0-17.5); Hypochromasia Slight; Lymphocytes % (A) 6 %; MCH 31.8 pg (25.0-35.0); MCHC 33.5 g/dL (31.0-37.0); MCV 95.1 fL (80.0-100.0); Monocytes # (A) 0.8 k/uL (0-1.0); Monocytes % (A) 5 %; Neutrophils % (A) 88 %; Platelet Count 181 k/uL (150-450); RBC 2.63 m/uL (4.30-5.90); RDW 14.8 % (11.5-15.5)
[2022-07-07 04:41] LABS: Albumin 1.8 g/dL (3.5-5.0); Magnesium 2.2 mg/dL (1.6-2.3); Potassium 4.8 mmol/L (3.5-5.1); Total Protein 3.9 g/dL (6.3-8.2)
[2022-07-07 04:52] LABS: Ionized Calcium 3.5 mg/dL (4.5-5.3)
[2022-07-07 04:57] LABS: Glucose,Whole Blood 153 mg/dL (70-110)
[2022-07-07 05:03] LABS: Calcium 6.3 mg/dL (8.4-10.2)
[2022-07-07] MEDS ORDERED: CALCIUM GLUCONATE IN NACL 2 GM in SALINE 1 100ML.BAG IVPB ONE (05:38)
[2022-07-07] MEDS ORDERED: AMIODARONE 360 MG in DEXTROSE 5% IN WATER 200 ML IV ONE ×4 (05:52→17:35)
[2022-07-07 05:54] LABS: Glucose,Whole Blood 152 mg/dL (70-110)
[2022-07-07 05:55] LABS: ABG HCO3 21 mmol/L (21-25); ABG Oxygen Saturation 98.3 % (94-97); ABG PCO2 31 mmHg (35-45); ABG PH 7.44 (7.35-7.45); ABG PO2 101 mmHg (83-108); ABG TCO2 22 mmol/L (19-24)
[2022-07-07 05:57] LABS: Allen Test Performed? No
[2022-07-07] MEDS ORDERED: METOPROLOL TARTRATE 5 MG/5 ML VIAL IVP STA (06:31)
[2022-07-07] MEDS: CARBIDOPA-LEVODOPA 25-100 MG 1 EACH TAB PO SCH ×4 (06:35→21:00)
[2022-07-07 06:53] LABS: Glucose,Whole Blood 128 mg/dL (70-110)
--- NOTE | 2022-07-07 07:14 | P.PN ---
Subjective Progress Note Date: 07/07/22 PROGRESS NOTE The patient was admitted to the hospital on June 24, he has a known history of CAD, post percutaneous revascularization history of cardiomyopathy, prostate cancer with metastasis. He was seen by Dr. Naranjo and subsequently by Dr. Dominguez. Earlier today he became unstable, hypotensive and tachypnea in addition to tachycardic in atrial fibrillation, requiring mechanical ventilation. He is intubated at this time, back in sinus mechanism on IV amiodarone and vasopressor. He is anemic. His past history is remarkable for diabetes, CAD, dementia and Parkinson disease. His son was adamant about having full code. He is in sinus mechanism at this time with single PACs and PVCs. There is no episodes of ventricular tachycardia. The patient had the acute lactic acidosis with possible sepsis and hypotension with worsening mental status. He has a sacral decubitus ulcer. July 06: The patient remains intubated with episodes of paroxysmal atrial fibrillation, hypotensive when he is in atrial fibrillation he rated he continues to be on IV amiodarone, received an additional bolus during the night. His urine output has been poor. He is on norepinephrine and vasopressin. There is no evidence of ventricular ectopic activity. Requiring large amount of vasopressors to maintain blood pressure. July 07: The patient remains intubated, on high-dose norepinephrine and vasopressin. He continues to have episodes of paroxysmal atrial fibrillation and continues to be on IV amiodarone. He has no urine output. He is nonresponsive. No ventricular ectopic activity. He is getting tube feeding. She remains on PEEP. There is evidence of worsening renal function and acute liver injury. No significant improvement compared to yesterday. Medications: Amiodarone, aspirin, Lovenox subcu, norepinephrine, vasopressin, Zosyn, vancomycin, IV Lopressor on a when necessary basis PHYSICAL EXAMINATION: Blood pressure 90/38 heart rate 70 in sinus mechanism, was in atrial fibrillation earlier, intubated, pale LUNGS: Clear to auscultation anteriorly HEART: Regular rate and rhythm, S1, S2. No S3. systolic ejection murmur ABDOMEN: Soft, no organomegaly, positive bowel sounds EXTREMETIES: +1 edema with decreased pulses LAB: Hemoglobin 8.4, BUN 93, creatinine 2.54. Potassium 4.8. AST 3155, ALT 166 IMPRESSION: 1. Multiorgan failure with respiratory failure and sepsis 2. Profound hypotension 3. Severe anemia 4. Worsening renal function with anuria 5. Paroxysmal atrial fibrillation 6. History of CAD 7. History of mild cardiomyopathy 8. Decubitus ulcer 9. Prostate cancer PLAN: 1. Continue IV amiodarone for now 2. IV Lopressor as needed control blood pressure 3. Prognosis is very poor, discussed with son in detail in view of multiorgan failure and overall status. 4. No significant changes compared to yesterday. Prognosis remains very poor in spite of maximum support. Objective - Vital Signs Vital signs: Vital Signs Temp 99.5 F 07/07/22 05:00 Pulse 72 07/07/22 07:00 Resp 29 H 07/07/22 07:00 BP 109/58 07/07/22 06:15 Pulse Ox 98 07/07/22 07:00 FiO2 50 07/07/22 07:00 Intake & Output 07/06/22 07/07/22 07/07/22 18:59 06:59 18:59 Intake Total 4105.441 3326.113 Output Total 25 35 Balance 4080.441 3291.113 Weight 73 kg Intake: IV 2800 1950 Dextrose 5% in Water 1, 1800 1950 000 ml @ 150 mls/hr IV . Q7H40M SHANELL with Sodium Bicarb (1 Meq/ml) 150 ml Rx#:[id number] Sodium Chloride 0.9% 1, 1000 000 ml @ 999 mls/hr IV . Q1H1M ONE Rx#:[id number] Intake, IV Titration 720.441 701.113 Amount Insulin Regular 100 unit 212.649 88.666 In Sodium Chloride 0.9% 100 ml @ Titrate IV .Q0M SHANELL Rx#:[id number] Norepinephrine 8 mg In 381.463 563.895 Sodium Chloride 0.9% 250 ml @ 0.03 MCG/KG/MIN 3. 425 mls/hr IV .Q24H SHANELL Rx#:[id number] Vasopressin 60 unit In 61.429 48.552 Sodium Chloride 0.9% 150 ml @ 0.03 UNITS/MIN 4.59 mls/hr IV .Q24H SHANELL Rx#: [id number] propofoL 1,000 mg In 64.9 Empty Bag 1 bag @ 15 MCG/ KG/MIN 5.31 mls/hr IV . [id number] SHANELL Rx#:[id number] Tube Feeding 495 585 Other 90 90 Output: Urine 25 35 Other: Voiding Method Indwelling Catheter Indwelling Catheter # Voids 0 ABP, PAP, CO, CI - Last Documented Arterial Blood Pressure 90/38 - Labs CBC & Chem 7: 07/07/22 03:52 07/07/22 03:52 Labs: Abnormal Lab Results - Last 24 Hours (Table) 07/06/22 07/06/22 07/06/22 Range/Units 04:10 04:10 08:03 WBC (3.8-10.6) k/uL RBC (4.30-5.90) m/uL Hgb (13.0-17.5) gm/dL Hct (39.0-53.0) % Neutrophils # (1.3-7.7) k/uL ABG pCO2 (35-45) mmHg ABG O2 Saturation (94-97) % ABG Lactic Acid (0.5-1.6) mmol/L Sodium (137-145) mmol/L Chloride (98-107) mmol/L Carbon Dioxide (22-30) mmol/L BUN (9-20) mg/dL Creatinine (0.66-1.25) mg/dL Glucose (74-99) mg/dL POC Glucose (mg/dL) 367 H (70-110) mg/dL Hemoglobin A1c 6.5 H (0.0-6.0) % Calcium (8.4-10.2) mg/dL Ionized Calcium Li (4.5-5.3) mg/dL AST 40369 H (17-59) U/L ALT 633 H (4-49) U/L Alkaline Phosphatase (38-126) U/L Creatine Kinase 468 H (55-170) U/L Total Protein (6.3-8.2) g/dL Albumin (3.5-5.0) g/dL 07/06/22 07/06/22 07/06/22 Range/Units 09:11 10:11 11:17 WBC (3.8-10.6) k/uL RBC (4.30-5.90) m/uL Hgb (13.0-17.5) gm/dL Hct (39.0-53.0) % Neutrophils # (1.3-7.7) k/uL ABG pCO2 (35-45) mmHg ABG O2 Saturation (94-97) % ABG Lactic Acid (0.5-1.6) mmol/L Sodium (137-145) mmol/L Chloride (98-107) mmol/L Carbon Dioxide (22-30) mmol/L BUN (9-20) mg/dL Creatinine (0.66-1.25) mg/dL Glucose (74-99) mg/dL POC Glucose (mg/dL) 343 H 304 H 282 H (70-110) mg/dL Hemoglobin A1c (0.0-6.0) % Calcium (8.4-10.2) mg/dL Ionized Calcium Li (4.5-5.3) mg/dL AST (17-59) U/L ALT (4-49) U/L Alkaline Phosphatase (38-126) U/L Creatine Kinase (55-170) U/L Total Protein (6.3-8.2) g/dL Albumin (3.5-5.0) g/dL 07/06/22 07/06/22 07/06/22 Range/Units 11:52 13:13 14:08 WBC (3.8-10.6) k/uL RBC (4.30-5.90) m/uL Hgb (13.0-17.5) gm/dL Hct (39.0-53.0) % Neutrophils # (1.3-7.7) k/uL ABG pCO2 (35-45) mmHg ABG O2 Saturation (94-97) % ABG Lactic Acid (0.5-1.6) mmol/L Sodium (137-145) mmol/L Chloride (98-107) mmol/L Carbon Dioxide (22-30) mmol/L BUN (9-20) mg/dL Creatinine (0.66-1.25) mg/dL Glucose (74-99) mg/dL POC Glucose (mg/dL) 305 H 227 H 184 H (70-110) mg/dL Hemoglobin A1c (0.0-6.0) % Calcium (8.4-10.2) mg/dL Ionized Calcium Li (4.5-5.3) mg/dL AST (17-59) U/L ALT (4-49) U/L Alkaline Phosphatase (38-126) U/L Creatine Kinase (55-170) U/L Total Protein (6.3-8.2) g/dL Albumin (3.5-5.0) g/dL 07/06/22 07/06/22 07/06/22 Range/Units 14:58 17:06 19:23 WBC (3.8-10.6) k/uL RBC (4.30-5.90) m/uL Hgb (13.0-17.5) gm/dL Hct (39.0-53.0) % Neutrophils # (1.3-7.7) k/uL ABG pCO2 (35-45) mmHg ABG O2 Saturation (94-97) % ABG Lactic Acid (0.5-1.6) mmol/L Sodium (137-145) mmol/L Chloride (98-107) mmol/L Carbon Dioxide (22-30) mmol/L BUN (9-20) mg/dL Creatinine (0.66-1.25) mg/dL Glucose (74-99) mg/dL POC Glucose (mg/dL) 173 H 117 H 146 H (70-110) mg/dL Hemoglobin A1c (0.0-6.0) % Calcium (8.4-10.2) mg/dL Ionized Calcium Li (4.5-5.3) mg/dL AST (17-59) U/L ALT (4-49) U/L Alkaline Phosphatase (38-126) U/L Creatine Kinase (55-170) U/L Total Protein (6.3-8.2) g/dL Albumin (3.5-5.0) g/dL 07/06/22 07/06/22 07/06/22 Range/Units 21:11 22:08 22:58 WBC (3.8-10.6) k/uL RBC (4.30-5.90) m/uL Hgb (13.0-17.5) gm/dL Hct (39.0-53.0) % Neutrophils # (1.3-7.7) k/uL ABG pCO2 (35-45) mmHg ABG O2 Saturation (94-97) % ABG Lactic Acid (0.5-1.6) mmol/L Sodium (137-145) mmol/L Chloride (98-107) mmol/L Carbon Dioxide (22-30) mmol/L BUN (9-20) mg/dL Creatinine (0.66-1.25) mg/dL Glucose (74-99) mg/dL POC Glucose (mg/dL) 251 H 224 H 206 H (70-110) mg/dL Hemoglobin A1c (0.0-6.0) % Calcium (8.4-10.2) mg/dL Ionized Calcium Li (4.5-5.3) mg/dL AST (17-59) U/L ALT (4-49) U/L Alkaline Phosphatase (38-126) U/L Creatine Kinase (55-170) U/L Total Protein (6.3-8.2) g/dL Albumin (3.5-5.0) g/dL 07/06/22 07/07/22 07/07/22 Range/Units 23:55 01:02 02:01 WBC (3.8-10.6) k/uL RBC (4.30-5.90) m/uL Hgb (13.0-17.5) gm/dL Hct (39.0-53.0) % Neutrophils # (1.3-7.7) k/uL ABG pCO2 (35-45) mmHg ABG O2 Saturation (94-97) % ABG Lactic Acid (0.5-1.6) mmol/L Sodium (137-145) mmol/L Chloride (98-107) mmol/L Carbon Dioxide (22-30) mmol/L BUN (9-20) mg/dL Creatinine (0.66-1.25) mg/dL Glucose (74-99) mg/dL POC Glucose (mg/dL) 157 H 150 H 133 H (70-110) mg/dL Hemoglobin A1c (0.0-6.0) % Calcium (8.4-10.2) mg/dL Ionized Calcium Li (4.5-5.3) mg/dL AST (17-59) U/L ALT (4-49) U/L Alkaline Phosphatase (38-126) U/L Creatine Kinase (55-170) U/L Total Protein (6.3-8.2) g/dL Albumin (3.5-5.0) g/dL 07/07/22 07/07/22 07/07/22 Range/Units 03:00 03:52 03:52 WBC 17.0 H (3.8-10.6) k/uL RBC 2.63 L (4.30-5.90) m/uL Hgb 8.4 L (13.0-17.5) gm/dL Hct 25.1 L (39.0-53.0) % Neutrophils # 15.0 H (1.3-7.7) k/uL ABG pCO2 (35-45) mmHg ABG O2 Saturation (94-97) % ABG Lactic Acid 12.1 H* (0.5-1.6) mmol/L Sodium (137-145) mmol/L Chloride (98-107) mmol/L Carbon Dioxide (22-30) mmol/L BUN (9-20) mg/dL Creatinine (0.66-1.25) mg/dL Glucose (74-99) mg/dL POC Glucose (mg/dL) 142 H (70-110) mg/dL Hemoglobin A1c (0.0-6.0) % Calcium (8.4-10.2) mg/dL Ionized Calcium Li (4.5-5.3) mg/dL AST (17-59) U/L ALT (4-49) U/L Alkaline Phosphatase (38-126) U/L Creatine Kinase (55-170) U/L Total Protein (6.3-8.2) g/dL Albumin (3.5-5.0) g/dL 07/07/22 07/07/22 07/07/22 Range/Units 03:52 03:56 04:55 WBC (3.8-10.6) k/uL RBC (4.30-5.90) m/uL Hgb (13.0-17.5) gm/dL Hct (39.0-53.0) % Neutrophils # (1.3-7.7) k/uL ABG pCO2 (35-45) mmHg ABG O2 Saturation (94-97) % ABG Lactic Acid (0.5-1.6) mmol/L Sodium 133 L (137-145) mmol/L Chloride 93 L (98-107) mmol/L Carbon Dioxide 20 L (22-30) mmol/L BUN 93 H (9-20) mg/dL Creatinine 2.54 H (0.66-1.25) mg/dL Glucose 150 H (74-99) mg/dL POC Glucose (mg/dL) 167 H 153 H (70-110) mg/dL Hemoglobin A1c (0.0-6.0) % Calcium 6.3 L* (8.4-10.2) mg/dL Ionized Calcium Li 3.5 L* (4.5-5.3) mg/dL AST 3155 H (17-59) U/L ALT 166 H (4-49) U/L Alkaline Phosphatase 282 H (38-126) U/L Creatine Kinase (55-170) U/L Total Protein 3.9 L (6.3-8.2) g/dL Albumin 1.8 L (3.5-5.0) g/dL 07/07/22 07/07/22 07/07/22 Range/Units 05:23 05:53 06:51 WBC (3.8-10.6) k/uL RBC (4.30-5.90) m/uL Hgb (13.0-17.5) gm/dL Hct (39.0-53.0) % Neutrophils # (1.3-7.7) k/uL ABG pCO2 31 L (35-45) mmHg ABG O2 Saturation 98.3 H (94-97) % ABG Lactic Acid (0.5-1.6) mmol/L Sodium (137-145) mmol/L Chloride (98-107) mmol/L Carbon Dioxide (22-30) mmol/L BUN (9-20) mg/dL Creatinine (0.66-1.25) mg/dL Glucose (74-99) mg/dL POC Glucose (mg/dL) 152 H 128 H (70-110) mg/dL Hemoglobin A1c (0.0-6.0) % Calcium (8.4-10.2) mg/dL Ionized Calcium Li (4.5-5.3) mg/dL AST (17-59) U/L ALT (4-49) U/L Alkaline Phosphatase (38-126) U/L Creatine Kinase (55-170) U/L Total Protein (6.3-8.2) g/dL Albumin (3.5-5.0) g/dL Microbiology - Last 24 Hours (Table) 07/01/22 11:46 Blood Culture - Preliminary Blood No Growth after 120 hours 07/05/22 20:41 Gram Stain - Preliminary Sputum Sputum Culture - Preliminary 07/04/22 08:00 Blood Culture - Preliminary Blood No Growth after 48 hours 07/04/22 08:00 Blood Culture - Preliminary Blood No Growth after 48 hours
[2022-07-07 08:06] LABS: Glucose,Whole Blood 133 mg/dL (70-110)
[2022-07-07] MEDS: TAMSULOSIN 0.4 MG CAP.ER.24H PO SCH (08:12)
[2022-07-07] MEDS: GABAPENTIN 100 MG CAP PO SCH ×3 (08:12→21:00)
[2022-07-07] MEDS: CHLORHEXIDINE GLUCONATE 15 ML CUP MUCOUS MEM SCH ×2 (08:12→20:59)
[2022-07-07] MEDS: ASPIRIN 81 MG PO SCH (08:12)
[2022-07-07] MEDS: ENOXAPARIN 30 MG/0.3 ML SYRINGE SQ SCH (08:12)
[2022-07-07] MEDS: SENNOSIDES 8.6 MG TAB PO SCH ×2 (08:13→20:59)
[2022-07-07] MEDS: polyethylene glycoL 3350 17 GM POWD.PACK PO SCH (08:13)
--- NOTE | 2022-07-07 08:41 | XR ---
EXAMINATION TYPE: XR chest 1V portable DATE OF EXAM: 07/07/2022 COMPARISON: 07/06/2022 HISTORY: Cough TECHNIQUE: Single frontal view of the chest is obtained. FINDINGS: NG tube seen coursing the left upper quadrant. ET tube appears 5 cm above the patrice. Diff use osseous abnormal attenuation. Coarsened central interstitium with left lower lobe infiltrate and pleural effusion. No sizable pneumothorax. IMPRESSION: 1. Stable left-sided consolidation correlate for pneumonia. 2. Diffuse osseous metastases.
[2022-07-07] MEDS ORDERED: VANCOMYCIN IV PER PHARMACY 1 EACH MISC MISCELLANE PRN (08:42)
[2022-07-07 09:20] LABS: Glucose,Whole Blood 166 mg/dL (70-110)
[2022-07-07] MEDS ORDERED: VANCOMYCIN 1,000 MG in SODIUM CHLORIDE 0.9% 250 ML IVPB ONE (10:00)
[2022-07-07 10:30] LABS: Glucose,Whole Blood 185 mg/dL (70-110)
--- NOTE | 2022-07-07 10:37 | P.PN ---
Subjective Progress Note Date: 07/07/22 Principal diagnosis: Respiratory failure. 87-year-old male patient, transferred to the intensive care unit, unresponsive, on 100% nonrebreather facemask, labored breathing, using a cystoscopy, the breathing, currently in A. fib with RVR and hemodynamically unstable with a blood pressure of 70/54. This was an emergency consult as the patient got acutely L and the patient got transferred to the intensive care unit. I talked to the primary care team. 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 The patient's condition is progressively getting worse and he did aspirate and his chest x-ray revealed extensive left lower lobe consolidation limited left lower lobe pulmonary infiltrate. This probably facilitated his respiratory failure. Discussions with the family was done and the son was adamant on keeping in focal status and he wanted everything to be done for his father. For that reason, the patient got transferred to the ICU and we went to proceed with intubation mechanical ventilation. He is also on fluids and is going to be started on pressors. He has a Edward catheter in place. Urine output is almost negligible at this point in time. No urine is being seen in the Edward bag. The patient was seen by oncology during this current admission. Based on his very poor functional status, no further treatment was recommended this point in time. His nutritional status extremely poor. He looks extremely emaciated and weak and debilitated at this point in time. No labs from this morning. The most recent labs from yesterday shows a white cell count of 7.5 with hemoglobin of 8.3 and platelet count of 173. His sodium is at 138, the patient is an acute kidney injury with a BUN of 72 and a creatinine of 1.3 and sodium level is 138. IV fluids currently are no form of normal saline bolus. He is also on amiodarone drip at 1 mg an hour in regards to this atrial fibrillation with RVR. The blood sugars at 262 this morning. His lactic acid level is up to 8. He is on IV Zosyn. He is on Lovenox 40 mg subcu for DVT prophylaxis. He is unresponsive. Barely withdraws to painful stimulation. On today's evaluation of 2021, the patient is intubated, remains sedated on propofol which is running at a rate of 10 mcg/kg/m. Intubated on a mechanical ventilator. He is on assist-control mode at a rate of 26, tidal volume of 450, FiO2 of 50% with a PEEP of 5. His blood gas from today shows a pH of 7.38 with a pCO2 of 34 and pO2 of 86. Chest x-ray showing extensive consolidation of the left lower lobe consistent with pneumonia and the patient is currently on a combination of Zosyn and vancomycin. At the same time, the patient is septic, hypotensive, he was aggressively resuscitated IV fluids. He was placed on a bicarbonate infusion. He was given additional bicarb doses yesterday. His pressors were modified and currently is on norepinephrine running at a dose of 0.17 mcg/kg/m and he is also on physiologic dose of vasopressin. He remained nature fibrillation with rapid response. His heart is the 140 range. He remains on amiodarone at a dose of 1 mg/m. Most recent BP is 97/57. Urine output is in order of less than 5 mL an hour. At the same time, the patient has developed an acute kidney injury. Creatinine is stable compared to yesterday. BUN is 85 and a creatinine of 2.2. Sodium is at 138. Serum bicarb is up to 19. Sodium is at 138. The white cell count today's of 8.7 with a hemoglobin of 8.2 and a platelet count of 143. Cultures are still negative for now. Sputum and blood culture were sent yesterday. NG tube in place. Enteral feeding is in the form of Nepro at a rate of 45 mL an hour which is currently at goal. In terms of anticoagulation, we opted not to give him full dose anticoagulants and we're currently giving him Lovenox portably prophylaxis at a dose of 30 mg subcu on a daily basis. He was started on insulin drip for blood tighter blood sugar control which is currently running at a dose of 19 units an hour. In terms of his lactic acid level, the level is up to 10.0 from yesterday morning and reasonable to repeat another level at this point in time. His pro calcitonin level is at 9.92, quite elevated. The patient has developed a shock liver, the Francois is at 1.4, AST is 4668 Progress note dated 07/07/2022. This is a 87-year-old male who was admitted on June 24 for dehydration, low sodium, and pneumonia. He entered the ICU on July 05, and was intubated on the same day. He remains on mechanical ventilator. He is on volume assist control, rate 26, tidal volume 450, FiO2 50%, and PEEP of 5. Blood gases show pO2 101, pCO2 of 31, and a pH is 7.44. Currently, he is on propofol at 10 mcg/kg/m, D5W with 3 ampules of sodium bicarbonate at 150 mL an hour, vasopressin at 0.04 units per minute, norepinephrine at 37 mcg/m, amiodarone at 1 mg/m, insulin, currently on hold, saline at 10 mL an hour, and tube feedings with Nepro at 45 mL an hour, which is goal. He continues on Zosyn and vancomycin. White count 17, hemoglobin 8.4, hematocrit 25.1, and platelet count 281,000. Sodium 133, potassium 4.8, chlorides 93, CO2 20, anion gap 20, BUN 93, and creatinine 2.54. AST is 3155, and ALT is 166. Pro-calcitonin level is 9.92. Cultures are thus far negative. Objective - Vital Signs Vital signs: Vital Signs Temp 100.6 F H 07/07/22 08:00 Pulse 75 07/07/22 10:00 Resp 29 H 07/07/22 10:00 BP 116/62 07/07/22 10:00 Pulse Ox 98 07/07/22 10:00 FiO2 50 07/07/22 09:00 Intake & Output 07/06/22 07/07/22 07/07/22 18:59 06:59 18:59 Intake Total 4105.441 3326.113 426 Output Total 25 35 0 Balance 4080.441 3291.113 426 Weight 73 kg Intake: IV 2800 1950 306 .9NS Pressure Line 6 Dextrose 5% in Water 1, 1800 1950 300 000 ml @ 150 mls/hr IV . Q7H40M SHANELL with Sodium Bicarb (1 Meq/ml) 150 ml Rx#:[id number] Sodium Chloride 0.9% 1, 1000 000 ml @ 999 mls/hr IV . Q1H1M ONE Rx#:[id number] Intake, IV Titration 720.441 701.113 Amount Insulin Regular 100 unit 212.649 88.666 In Sodium Chloride 0.9% 100 ml @ Titrate IV .Q0M SHANELL Rx#:[id number] Norepinephrine 8 mg In 381.463 563.895 Sodium Chloride 0.9% 250 ml @ 0.03 MCG/KG/MIN 3. 425 mls/hr IV .Q24H SHANELL Rx#:[id number] Vasopressin 60 unit In 61.429 48.552 Sodium Chloride 0.9% 150 ml @ 0.03 UNITS/MIN 4.59 mls/hr IV .Q24H SHANELL Rx#: [id number] propofoL 1,000 mg In 64.9 Empty Bag 1 bag @ 15 MCG/ KG/MIN 5.31 mls/hr IV . [id number] SHANELL Rx#:[id number] Tube Feeding 495 585 90 Other 90 90 30 Output: Urine 25 35 0 Other: Voiding Method Indwelling Catheter Indwelling Catheter # Voids 0 ABP, PAP, CO, CI - Last Documented Arterial Blood Pressure 117/43 - Exam No acute distress, sedated, with an orally placed endotracheal tube and NG tube. HEENT examination is grossly unremarkable. Neck supple. Full range of motion. No adenopathy thyromegaly or neck vein distention. Cardiovascular examination reveals regular rhythm rate. S1-S2 normal. No S3 or S4. No discernible murmur noted. Heart sounds are distant. Heart rate 75 bpm. Lungs reveal scattered bilateral rhonchi. Breath sounds are diminished throughout. Breath sounds are equal bilaterally. No wheezes. Saturations while on the ventilator are 98%.. Abdomen soft, with bowel sounds. No masses. Extremities are intact. Mild acrocyanosis. Mild trace edema. No clubbing. Skin is without rash or lesion. Neurologic examination cannot be adequately assessed. - Labs CBC & Chem 7: 07/07/22 03:52 07/07/22 03:52 Labs: Abnormal Lab Results - Last 24 Hours (Table) 07/06/22 07/06/22 07/06/22 Range/Units 11:17 11:52 13:13 WBC (3.8-10.6) k/uL RBC (4.30-5.90) m/uL Hgb (13.0-17.5) gm/dL Hct (39.0-53.0) % Neutrophils # (1.3-7.7) k/uL ABG pCO2 (35-45) mmHg ABG O2 Saturation (94-97) % ABG Lactic Acid (0.5-1.6) mmol/L Sodium (137-145) mmol/L Chloride (98-107) mmol/L Carbon Dioxide (22-30) mmol/L BUN (9-20) mg/dL Creatinine (0.66-1.25) mg/dL Glucose (74-99) mg/dL POC Glucose (mg/dL) 282 H 305 H 227 H (70-110) mg/dL Calcium (8.4-10.2) mg/dL Ionized Calcium Il (4.5-5.3) mg/dL AST (17-59) U/L ALT (4-49) U/L Alkaline Phosphatase (38-126) U/L Total Protein (6.3-8.2) g/dL Albumin (3.5-5.0) g/dL 07/06/22 07/06/22 07/06/22 Range/Units 14:08 14:58 17:06 WBC (3.8-10.6) k/uL RBC (4.30-5.90) m/uL Hgb (13.0-17.5) gm/dL Hct (39.0-53.0) % Neutrophils # (1.3-7.7) k/uL ABG pCO2 (35-45) mmHg ABG O2 Saturation (94-97) % ABG Lactic Acid (0.5-1.6) mmol/L Sodium (137-145) mmol/L Chloride (98-107) mmol/L Carbon Dioxide (22-30) mmol/L BUN (9-20) mg/dL Creatinine (0.66-1.25) mg/dL Glucose (74-99) mg/dL POC Glucose (mg/dL) 184 H 173 H 117 H (70-110) mg/dL Calcium (8.4-10.2) mg/dL Ionized Calcium Li (4.5-5.3) mg/dL AST (17-59) U/L ALT (4-49) U/L Alkaline Phosphatase (38-126) U/L Total Protein (6.3-8.2) g/dL Albumin (3.5-5.0) g/dL 1107/06/22 07/06/22 Range/Units 19:23 21:11 22:08 WBC (3.8-10.6) k/uL RBC (4.30-5.90) m/uL Hgb (13.0-17.5) gm/dL Hct (39.0-53.0) % Neutrophils # (1.3-7.7) k/uL ABG pCO2 (35-45) mmHg ABG O2 Saturation (94-97) % ABG Lactic Acid (0.5-1.6) mmol/L Sodium (137-145) mmol/L Chloride (98-107) mmol/L Carbon Dioxide (22-30) mmol/L BUN (9-20) mg/dL Creatinine (0.66-1.25) mg/dL Glucose (74-99) mg/dL POC Glucose (mg/dL) 146 H 251 H 224 H (70-110) mg/dL Calcium (8.4-10.2) mg/dL Ionized Calcium Li (4.5-5.3) mg/dL AST (17-59) U/L ALT (4-49) U/L Alkaline Phosphatase (38-126) U/L Total Protein (6.3-8.2) g/dL Albumin (3.5-5.0) g/dL 07/06/22 07/06/22 07/07/22 Range/Units 22:58 23:55 01:02 WBC (3.8-10.6) k/uL RBC (4.30-5.90) m/uL Hgb (13.0-17.5) gm/dL Hct (39.0-53.0) % Neutrophils # (1.3-7.7) k/uL ABG pCO2 (35-45) mmHg ABG O2 Saturation (94-97) % ABG Lactic Acid (0.5-1.6) mmol/L Sodium (137-145) mmol/L Chloride (98-107) mmol/L Carbon Dioxide (22-30) mmol/L BUN (9-20) mg/dL Creatinine (0.66-1.25) mg/dL Glucose (74-99) mg/dL POC Glucose (mg/dL) 206 H 157 H 150 H (70-110) mg/dL Calcium (8.4-10.2) mg/dL Ionized Calcium Li (4.5-5.3) mg/dL AST (17-59) U/L ALT (4-49) U/L Alkaline Phosphatase (38-126) U/L Total Protein (6.3-8.2) g/dL Albumin (3.5-5.0) g/dL 07/07/22 07/07/22 07/07/22 Range/Units 02:01 03:00 03:52 WBC 17.0 H (3.8-10.6) k/uL RBC 2.63 L (4.30-5.90) m/uL Hgb 8.4 L (13.0-17.5) gm/dL Hct 25.1 L (39.0-53.0) % Neutrophils # 15.0 H (1.3-7.7) k/uL ABG pCO2 (35-45) mmHg ABG O2 Saturation (94-97) % ABG Lactic Acid (0.5-1.6) mmol/L Sodium (137-145) mmol/L Chloride (98-107) mmol/L Carbon Dioxide (22-30) mmol/L BUN (9-20) mg/dL Creatinine (0.66-1.25) mg/dL Glucose (74-99) mg/dL POC Glucose (mg/dL) 133 H 142 H (70-110) mg/dL Calcium (8.4-10.2) mg/dL Ionized Calcium Li (4.5-5.3) mg/dL AST (17-59) U/L ALT (4-49) U/L Alkaline Phosphatase (38-126) U/L Total Protein (6.3-8.2) g/dL Albumin (3.5-5.0) g/dL 07/07/22 07/07/22 07/07/22 Range/Units 03:52 03:52 03:56 WBC (3.8-10.6) k/uL RBC (4.30-5.90) m/uL Hgb (13.0-17.5) gm/dL Hct (39.0-53.0) % Neutrophils # (1.3-7.7) k/uL ABG pCO2 (35-45) mmHg ABG O2 Saturation (94-97) % ABG Lactic Acid 12.1 H* (0.5-1.6) mmol/L Sodium 133 L (137-145) mmol/L Chloride 93 L (98-107) mmol/L Carbon Dioxide 20 L (22-30) mmol/L BUN 93 H (9-20) mg/dL Creatinine 2.54 H (0.66-1.25) mg/dL Glucose 150 H (74-99) mg/dL POC Glucose (mg/dL) 167 H (70-110) mg/dL Calcium 6.3 L* (8.4-10.2) mg/dL Ionized Calcium Li 3.5 L* (4.5-5.3) mg/dL AST 3155 H (17-59) U/L ALT 166 H (4-49) U/L Alkaline Phosphatase 282 H (38-126) U/L Total Protein 3.9 L (6.3-8.2) g/dL Albumin 1.8 L (3.5-5.0) g/dL 07/07/22 07/07/22 07/07/22 Range/Units 04:55 05:23 05:53 WBC (3.8-10.6) k/uL RBC (4.30-5.90) m/uL Hgb (13.0-17.5) gm/dL Hct (39.0-53.0) % Neutrophils # (1.3-7.7) k/uL ABG pCO2 31 L (35-45) mmHg ABG O2 Saturation 98.3 H (94-97) % ABG Lactic Acid (0.5-1.6) mmol/L Sodium (137-145) mmol/L Chloride (98-107) mmol/L Carbon Dioxide (22-30) mmol/L BUN (9-20) mg/dL Creatinine (0.66-1.25) mg/dL Glucose (74-99) mg/dL POC Glucose (mg/dL) 153 H 152 H (70-110) mg/dL Calcium (8.4-10.2) mg/dL Ionized Calcium Li (4.5-5.3) mg/dL AST (17-59) U/L ALT (4-49) U/L Alkaline Phosphatase (38-126) U/L Total Protein (6.3-8.2) g/dL Albumin (3.5-5.0) g/dL 07/07/22 07/07/22 07/07/22 Range/Units 06:51 08:05 09:18 WBC (3.8-10.6) k/uL RBC (4.30-5.90) m/uL Hgb (13.0-17.5) gm/dL Hct (39.0-53.0) % Neutrophils # (1.3-7.7) k/uL ABG pCO2 (35-45) mmHg ABG O2 Saturation (94-97) % ABG Lactic Acid (0.5-1.6) mmol/L Sodium (137-145) mmol/L Chloride (98-107) mmol/L Carbon Dioxide (22-30) mmol/L BUN (9-20) mg/dL Creatinine (0.66-1.25) mg/dL Glucose (74-99) mg/dL POC Glucose (mg/dL) 128 H 133 H 166 H (70-110) mg/dL Calcium (8.4-10.2) mg/dL Ionized Calcium Li (4.5-5.3) mg/dL AST (17-59) U/L ALT (4-49) U/L Alkaline Phosphatase (38-126) U/L Total Protein (6.3-8.2) g/dL Albumin (3.5-5.0) g/dL Microbiology - Last 24 Hours (Table) 07/04/22 08:00 Blood Culture - Preliminary Blood No Growth after 72 hours 07/04/22 08:00 Blood Culture - Preliminary Blood No Growth after 72 hours 07/01/22 11:46 Blood Culture - Preliminary Blood No Growth after 120 hours 07/05/22 20:41 Gram Stain - Preliminary Sputum Sputum Culture - Preliminary Assessment and Plan Assessment: Acute hypoxemic respiratory failure with bilateral lower lobe infiltrates, and extensive consolidation, left lower lobe. Status post intubation and mechanical ventilation for respiratory failure, 07/05/2022. Acute hypotension, likely related to underlying sepsis. Anion gap metabolic acidosis, secondary to lactic acidemia. Mental status changes, secondary to metabolic and septic encephalopathy. Acute kidney injury, likely related to ATN. Chronic anemia. History of Parkinson's disease. Sacral decubitus ulcers. Severe protein/calorie malnutrition. Atrial fibrillation with RVR. Stage IV prostate cancer, with skeletal metastasis. CAD. Type 2 diabetes. Mild to moderate left ventricular systolic dysfunction. Multiorgan system failure. Plan: Plan dated 07/07/2022. The patient continues on Zosyn and vancomycin. No changes in the mechanical ventilator. The patient remains on propofol, sodium bicarbonate drip, vasopress in, norepinephrine, amiodarone, insulin, and tube feeds. Labs, x-rays, and medications are all reviewed. Overall prognosis remains very poor. It's very likely this patient was not survive this illness. We will continue to follow make recommendations along the way. Time with Patient: Greater than 30
--- NOTE | 2022-07-07 11:02 | P.PN ---
Subjective Patient is seen for follow-up for hyponatremia and acute kidney injury Patient was transferred to the ICU . He initially developed A. fib with RVR and hypotension. He was noted to have agonal breathing and was subsequently intubated. Currently patient is maintained on amiodarone drip. He is also on levo fed for hypotension. Urine output has dropped off to 0 to 5 mL an hour Maintained on tube feedings FiO2 at 50% currently No active bleeding noted. Serum creatinine increased to 2.5 today. Potassium is at 4.8 Maintained on bicarb drip On max dose off pressors No urine output. No significant response to IV Lasix yesterday Objective - Vital Signs Vital signs: Vital Signs Temp 100.6 F H 07/07/22 08:00 Pulse 75 07/07/22 10:00 Resp 29 H 07/07/22 10:00 BP 116/62 07/07/22 10:00 Pulse Ox 98 07/07/22 10:00 FiO2 50 07/07/22 09:00 Intake & Output 07/06/22 07/07/22 07/07/22 18:59 06:59 18:59 Intake Total 4105.441 3326.113 426 Output Total 25 35 0 Balance 4080.441 3291.113 426 Weight 73 kg Intake: IV 2800 1950 306 .9NS Pressure Line 6 Dextrose 5% in Water 1, 1800 1950 300 000 ml @ 150 mls/hr IV . Q7H40M SHANELL with Sodium Bicarb (1 Meq/ml) 150 ml Rx#:[id number] Sodium Chloride 0.9% 1, 1000 000 ml @ 999 mls/hr IV . Q1H1M ONE Rx#:[id number] Intake, IV Titration 720.441 701.113 0 Amount Insulin Regular 100 unit 212.649 88.666 0 In Sodium Chloride 0.9% 100 ml @ Titrate IV .Q0M SHANELL Rx#:[id number] Norepinephrine 8 mg In 381.463 563.895 Sodium Chloride 0.9% 250 ml @ 0.03 MCG/KG/MIN 3. 425 mls/hr IV .Q24H SHANELL Rx#:[id number] Vasopressin 60 unit In 61.429 48.552 Sodium Chloride 0.9% 150 ml @ 0.03 UNITS/MIN 4.59 mls/hr IV .Q24H SHANELL Rx#: [id number] propofoL 1,000 mg In 64.9 Empty Bag 1 bag @ 15 MCG/ KG/MIN 5.31 mls/hr IV . [id number] SHANELL Rx#:[id number] Tube Feeding 495 585 90 Other 90 90 30 Output: Urine 25 35 0 Other: Voiding Method Indwelling Catheter Indwelling Catheter # Voids 0 ABP, PAP, CO, CI - Last Documented Arterial Blood Pressure 117/43 - Exam Patient is sedated and intubated Examination of the heart S1 and S2 Examination of the lungs decreased breath sounds at the bases Abdomen is soft nontender Examination lower extremities shows 2+ edema - Labs CBC & Chem 7: 07/07/22 03:52 07/07/22 03:52 Labs: Abnormal Lab Results - Last 24 Hours (Table) 07/06/22 07/06/22 07/06/22 Range/Units 11:17 11:52 13:13 WBC (3.8-10.6) k/uL RBC (4.30-5.90) m/uL Hgb (13.0-17.5) gm/dL Hct (39.0-53.0) % Neutrophils # (1.3-7.7) k/uL ABG pCO2 (35-45) mmHg ABG O2 Saturation (94-97) % ABG Lactic Acid (0.5-1.6) mmol/L Sodium (137-145) mmol/L Chloride (98-107) mmol/L Carbon Dioxide (22-30) mmol/L BUN (9-20) mg/dL Creatinine (0.66-1.25) mg/dL Glucose (74-99) mg/dL POC Glucose (mg/dL) 282 H 305 H 227 H (70-110) mg/dL Calcium (8.4-10.2) mg/dL Ionized Calcium Li (4.5-5.3) mg/dL AST (17-59) U/L ALT (4-49) U/L Alkaline Phosphatase (38-126) U/L Total Protein (6.3-8.2) g/dL Albumin (3.5-5.0) g/dL 07/06/22 07/06/22 07/06/22 Range/Units 14:08 14:58 17:06 WBC (3.8-10.6) k/uL RBC (4.30-5.90) m/uL Hgb (13.0-17.5) gm/dL Hct (39.0-53.0) % Neutrophils # (1.3-7.7) k/uL ABG pCO2 (35-45) mmHg ABG O2 Saturation (94-97) % ABG Lactic Acid (0.5-1.6) mmol/L Sodium (137-145) mmol/L Chloride (98-107) mmol/L Carbon Dioxide (22-30) mmol/L BUN (9-20) mg/dL Creatinine (0.66-1.25) mg/dL Glucose (74-99) mg/dL POC Glucose (mg/dL) 184 H 173 H 117 H (70-110) mg/dL Calcium (8.4-10.2) mg/dL Ionized Calcium Li (4.5-5.3) mg/dL AST (17-59) U/L ALT (4-49) U/L Alkaline Phosphatase (38-126) U/L Total Protein (6.3-8.2) g/dL Albumin (3.5-5.0) g/dL 07/06/22 07/06/22 07/06/22 Range/Units 19:23 21:11 22:08 WBC (3.8-10.6) k/uL RBC (4.30-5.90) m/uL Hgb (13.0-17.5) gm/dL Hct (39.0-53.0) % Neutrophils # (1.3-7.7) k/uL ABG pCO2 (35-45) mmHg ABG O2 Saturation (94-97) % ABG Lactic Acid (0.5-1.6) mmol/L Sodium (137-145) mmol/L Chloride (98-107) mmol/L Carbon Dioxide (22-30) mmol/L BUN (9-20) mg/dL Creatinine (0.66-1.25) mg/dL Glucose (74-99) mg/dL POC Glucose (mg/dL) 146 H 251 H 224 H (70-110) mg/dL Calcium (8.4-10.2) mg/dL Ionized Calcium Li (4.5-5.3) mg/dL AST (17-59) U/L ALT (4-49) U/L Alkaline Phosphatase (38-126) U/L Total Protein (6.3-8.2) g/dL Albumin (3.5-5.0) g/dL 07/06/22 07/06/22 07/07/22 Range/Units 22:58 23:55 01:02 WBC (3.8-10.6) k/uL RBC (4.30-5.90) m/uL Hgb (13.0-17.5) gm/dL Hct (39.0-53.0) % Neutrophils # (1.3-7.7) k/uL ABG pCO2 (35-45) mmHg ABG O2 Saturation (94-97) % ABG Lactic Acid (0.5-1.6) mmol/L Sodium (137-145) mmol/L Chloride (98-107) mmol/L Carbon Dioxide (22-30) mmol/L BUN (9-20) mg/dL Creatinine (0.66-1.25) mg/dL Glucose (74-99) mg/dL POC Glucose (mg/dL) 206 H 157 H 150 H (70-110) mg/dL Calcium (8.4-10.2) mg/dL Ionized Calcium Li (4.5-5.3) mg/dL AST (17-59) U/L ALT (4-49) U/L Alkaline Phosphatase (38-126) U/L Total Protein (6.3-8.2) g/dL Albumin (3.5-5.0) g/dL 07/07/22 07/07/22 07/07/22 Range/Units 02:01 03:00 03:52 WBC 17.0 H (3.8-10.6) k/uL RBC 2.63 L (4.30-5.90) m/uL Hgb 8.4 L (13.0-17.5) gm/dL Hct 25.1 L (39.0-53.0) % Neutrophils # 15.0 H (1.3-7.7) k/uL ABG pCO2 (35-45) mmHg ABG O2 Saturation (94-97) % ABG Lactic Acid (0.5-1.6) mmol/L Sodium (137-145) mmol/L Chloride (98-107) mmol/L Carbon Dioxide (22-30) mmol/L BUN (9-20) mg/dL Creatinine (0.66-1.25) mg/dL Glucose (74-99) mg/dL POC Glucose (mg/dL) 133 H 142 H (70-110) mg/dL Calcium (8.4-10.2) mg/dL Ionized Calcium Li (4.5-5.3) mg/dL AST (17-59) U/L ALT (4-49) U/L Alkaline Phosphatase (38-126) U/L Total Protein (6.3-8.2) g/dL Albumin (3.5-5.0) g/dL 07/07/22 07/07/22 07/07/22 Range/Units 03:52 03:52 03:56 WBC (3.8-10.6) k/uL RBC (4.30-5.90) m/uL Hgb (13.0-17.5) gm/dL Hct (39.0-53.0) % Neutrophils # (1.3-7.7) k/uL ABG pCO2 (35-45) mmHg ABG O2 Saturation (94-97) % ABG Lactic Acid 12.1 H* (0.5-1.6) mmol/L Sodium 133 L (137-145) mmol/L Chloride 93 L (98-107) mmol/L Carbon Dioxide 20 L (22-30) mmol/L BUN 93 H (9-20) mg/dL Creatinine 2.54 H (0.66-1.25) mg/dL Glucose 150 H (74-99) mg/dL POC Glucose (mg/dL) 167 H (70-110) mg/dL Calcium 6.3 L* (8.4-10.2) mg/dL Ionized Calcium Li 3.5 L* (4.5-5.3) mg/dL AST 3155 H (17-59) U/L ALT 166 H (4-49) U/L Alkaline Phosphatase 282 H (38-126) U/L Total Protein 3.9 L (6.3-8.2) g/dL Albumin 1.8 L (3.5-5.0) g/dL 07/07/22 07/07/22 07/07/22 Range/Units 04:55 05:23 05:53 WBC (3.8-10.6) k/uL RBC (4.30-5.90) m/uL Hgb (13.0-17.5) gm/dL Hct (39.0-53.0) % Neutrophils # (1.3-7.7) k/uL ABG pCO2 31 L (35-45) mmHg ABG O2 Saturation 98.3 H (94-97) % ABG Lactic Acid (0.5-1.6) mmol/L Sodium (137-145) mmol/L Chloride (98-107) mmol/L Carbon Dioxide (22-30) mmol/L BUN (9-20) mg/dL Creatinine (0.66-1.25) mg/dL Glucose (74-99) mg/dL POC Glucose (mg/dL) 153 H 152 H (70-110) mg/dL Calcium (8.4-10.2) mg/dL Ionized Calcium Li (4.5-5.3) mg/dL AST (17-59) U/L ALT (4-49) U/L Alkaline Phosphatase (38-126) U/L Total Protein (6.3-8.2) g/dL Albumin (3.5-5.0) g/dL 07/07/22 07/07/22 07/07/22 Range/Units 06:51 08:05 09:18 WBC (3.8-10.6) k/uL RBC (4.30-5.90) m/uL Hgb (13.0-17.5) gm/dL Hct (39.0-53.0) % Neutrophils # (1.3-7.7) k/uL ABG pCO2 (35-45) mmHg ABG O2 Saturation (94-97) % ABG Lactic Acid (0.5-1.6) mmol/L Sodium (137-145) mmol/L Chloride (98-107) mmol/L Carbon Dioxide (22-30) mmol/L BUN (9-20) mg/dL Creatinine (0.66-1.25) mg/dL Glucose (74-99) mg/dL POC Glucose (mg/dL) 128 H 133 H 166 H (70-110) mg/dL Calcium (8.4-10.2) mg/dL Ionized Calcium Li (4.5-5.3) mg/dL AST (17-59) U/L ALT (4-49) U/L Alkaline Phosphatase (38-126) U/L Total Protein (6.3-8.2) g/dL Albumin (3.5-5.0) g/dL 07/07/22 Range/Units 10:27 WBC (3.8-10.6) k/uL RBC (4.30-5.90) m/uL Hgb (13.0-17.5) gm/dL Hct (39.0-53.0) % Neutrophils # (1.3-7.7) k/uL ABG pCO2 (35-45) mmHg ABG O2 Saturation (94-97) % ABG Lactic Acid (0.5-1.6) mmol/L Sodium (137-145) mmol/L Chloride (98-107) mmol/L Carbon Dioxide (22-30) mmol/L BUN (9-20) mg/dL Creatinine (0.66-1.25) mg/dL Glucose (74-99) mg/dL POC Glucose (mg/dL) 185 H (70-110) mg/dL Calcium (8.4-10.2) mg/dL Ionized Calcium Li (4.5-5.3) mg/dL AST (17-59) U/L ALT (4-49) U/L Alkaline Phosphatase (38-126) U/L Total Protein (6.3-8.2) g/dL Albumin (3.5-5.0) g/dL Microbiology - Last 24 Hours (Table) 07/04/22 08:00 Blood Culture - Preliminary Blood No Growth after 72 hours 07/04/22 08:00 Blood Culture - Preliminary Blood No Growth after 72 hours 07/01/22 11:46 Blood Culture - Preliminary Blood No Growth after 120 hours 07/05/22 20:41 Gram Stain - Preliminary Sputum Sputum Culture - Preliminary Assessment and Plan Assessment: 1. Hyponatremia from poor solute intake. Hypervolemic. Sodium is currently on the lower side associated with acute kidney injury, oliguria and volume overload 2. Acute hypoxic respiratory failure , currently intubated. 3. Prostate cancer with metastatic disease. 4. Benign hypertension. Stable. 5. Diabetes mellitus. 6. Parkinson's disease. Neurology following. 7. Urinary retention. Edward catheter placed. On Flomax. No hydronephrosis noted on kidney ultrasound. Left kidney not visualized. 8. Hypokalemia from poor intake and diuresis. Replaced. 10. A. fib with RVR maintained on amiodarone drip 11. Metabolic acidosis currently on bicarb drip 12. Acute kidney injury secondary to hypotension and hemodynamic instability. Oliguric. No plans for renal replacement therapy due to profound hypotension, currently on max dose pressors 13. Hyperkalemia associated with acute kidney injury and metabolic acidosis Plan: Continue with IV bicarb No indication for emergent dialysis today Discussed with son yesterday regarding poor prognosis and the fact that patient is not an ideal candidate for renal replacement therapy given his metastatic pro static cancer as well as significant hypotension requiring high doses of pressors.
[2022-07-07 11:26] LABS: Glucose,Whole Blood 159 mg/dL (70-110)
--- NOTE | 2022-07-07 11:32 | P.PN ---
Subjective Progress Note Date: 07/07/22 Principal diagnosis: AMS The patient is an 87-year-old male with a PMH of 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 He was brought into the emergency room on 06/24/22 by his son for altered mental status and failure to thrive. Per the son, the patient who has been on Sinemet for several years recently had it discontinued by Dr. Luz and started on amantadine. The son reports that ever since the medication change, his father has not been quite himself. He reports that the patient has now developed worsening tremors and has been increasingly confused and refusing to eat or drink much. At baseline, he reports that his father is oriented 3 and was able to use his walker to ambulate throughout the house and get himself out of bed and seat himself on the toilet. He reports that since the medication change, the patient is also suffered several falls leading to the bruising over his arms. The patient was not answering any questions appropriately. Head/cervical spine CT in the emergency room was consistent with metastatic osteoblastic disease. Pelvis x- ray also unremarkable aside from stable metastatic disease. Chest x-ray revea led pulmonary edema and pleural fluid, possible CHF. Right forearm x-ray was unremarkable. EKG reveals sinus rhythm with left axis deviation a 69 bpm with a left bundle branch block. Initially found to have severe hypervolemic hyponatremia likely in setting of CHF exacerbation. Patient was evaluated by cardiology and nephrology. Sodium improved with diuretics. Altered mental status likely secondary to severe hyponatremia versus worsening Parkinson's. Neurology is allyson following.. Amantadine was discontinued as it can potentially cause urinary retention and behavioral changes/confusion. Sinemet was continued. Patient had swallow evaluation, failed. Modified barium swallow also failed. Patient's son would prefer to eventually take him home with a feeding tube, the patient's daughter does not believe that is the right course. Patient has not signed anyone has his primary decision maker. 06/29 The patient is resting in bed and appears comfortable. His speech is slurred and very hard to understand. Had a phone conversation with the patient's daughter in attempt to set up a family meeting. Palliative care philosophies and services explained. Unfortunately, she lives in [place]. She voiced many concerns regarding her father. She is concerned that her brother may need help caring for her father. Her brother has to work and the patient is then left alone for periods of time and has fallen on multiple occasions. She stated that she has had conversations with her father in the past regarding end of life. Back in 2018 he did agree to be fully resuscitated, placed on a ventilator if it were short term, and for placement of a feeding tube. She is worried that her brother is unrealistic and not able to face that their dad is near the end of his life. She values quality of life over quantity of life. The patient's son is at the bedside, and his sister is on speakerphone for family meeting. After I introduced myself, the son was defensive and stated he did not want me there or to talk about his father's medical issues with him. The discussion regarding PEG tube placement was non-productive. Attempted to talk about why PEG tube is not recommended for patient's with dementia. There is still risks of bleeding, infection, and aspiration involved with the peg tube. There is also a concern that he may pull it out. The patient's son stated that his father was getting the PEG tube tomorrow no matter what I say. It was difficult to talk and make a point during without being interrupted. the son was not interested in listening. It was explained multiple times that palliative care is a support service to help guide them in determining which treatments are beneficial and which may cause undue burden. he repeated that he did not want me there. The patient's daughter was trying to gather information and understand her father's condition to make good decisions. The son was angry telling her to shut up and to stop getting in the way of their dad's treatment. He stated she had no right to put conditions on his care. She would like someone to be there 24 hours a day to care for her father and to keep him safe. The son insists that his father is telling him that he doesn't want to give up and wants to continue treatment. I only observed the patient repeating what he was told to say. He is confused and not capable of making his own decisions at this time. Voiced concern about the patient's recent decline in functional status. Neha Galicia, oncology [facility], was called to clarify if they would continue the patient's Xtandi if the patient got a peg tube placed. She stated that he has done well with the treatment in the past. She will check into if the medication can be crushed and administered through a peg tube. If it is able to, they could resume his Xtandi immediately after peg placement. The patient's son stated if they are unable to continue his father's treatment here, then he will take him to [facility] for a second opinion. Ultimately, after much arguing, the patient's son and daughter agreed to proceed with a peg tube placement tomorrow. 07/01 The patient is lying in bed and appears less responsive today. He does grimace and moan out in pain occasionally. His son is at the bedside. He does n ot believe his father is suffering and is still adamant about doing everything to give him a fighting chance. Unfortunately the patient has a very poor prognosis. The son is asking for a list of ambulance companies that can help transport his father home when he is discharged. He was informed that his father will be here for a while yet. 07/04 The patient is obtunded. He is febrile at 103.1 degrees, tachycardic, and tachypneic in the 30's with labored breathing. The nurse is in the room trying to care or the patient. Unfortunately his son is there making unreasonable demands from her while she is on the phone trying to get help. He turned to me and asked me what I was doing there. I told him I was only there to check on him and his father and see how things were going. He said " I do not want to talk to you. Get out!" I gently reminded him that I know this is not an easy time for him, but I am here to support the patient and him. He replied loudly that he did not want me interfering with anything and to leave. The nurse told him to stop yelling and to be respectful of the staff. He stated that we were trying to kill his dad and not do anything for him. I stated that we were not with holding care, we are doing everything we can for his dad, but he is still declining. He yelled at the nurse and said "then do what I am asking you to do!" He was requesting that humidification be added to his nasal cannula and his oxygen be turned up. His SPO2 was 89%. The nurse replied that she has already notified respiratory therapy. Code status was addressed again. The son stated he wanted everything done. He will not just let his father . He will give hi a fighting chance. He was told that the nursing staff is concerned about doing CPR on the patient. He is very cachectic and frail. We would more that likely break ribs and cause more pain and suffering. He stated we were to do everything or his dad. Patient advocate and nursing yard supervisor aware of issues. Spoke with the patient's daughter, Caprice, via telephone. She was updated on her father's condition and her brothers decisions. Attending also notified. 07/05 Patient became hemodynamically unstable and was transferred to the ICU. He was intubated, lined, and put on pressors. Patient's son is present and pacing in the room. Mail Clerk Bills did not enter the room to prevent upsetting the son. Patient seems to be actively dying. Spoke with RN, the son is very adamant that everything possible be done and for the patient remain a full code.Patient's daughter, Caprice, is due to arrive in town today from [place]. Will attempt to speak with and support Caprice when she arrives. 07/06 Spoke to Caprice via telephone. She stated that she had just arrived to the hospital and is talking to the nurses and physicians trying to get updates. Objective - Vital Signs Vital signs: Vital Signs Temp 100.6 F H 07/07/22 08:00 Pulse 75 07/07/22 10:00 Resp 29 H 07/07/22 10:00 BP 116/62 07/07/22 10:00 Pulse Ox 98 07/07/22 10:00 FiO2 50 07/07/22 09:00 Intake & Output 07/06/22 07/07/22 07/07/22 18:59 06:59 18:59 Intake Total 4105.441 3326.113 426 Output Total 25 35 0 Balance 4080.441 3291.113 426 Weight 73 kg Intake: IV 2800 1950 306 .9NS Pressure Line 6 Dextrose 5% in Water 1, 1800 1950 300 000 ml @ 150 mls/hr IV . Q7H40M SHANELL with Sodium Bicarb (1 Meq/ml) 150 ml Rx#:[id number] Sodium Chloride 0.9% 1, 1000 000 ml @ 999 mls/hr IV . Q1H1M ONE Rx#:[id number] Intake, IV Titration 720.441 701.113 0 Amount Insulin Regular 100 unit 212.649 88.666 0 In Sodium Chloride 0.9% 100 ml @ Titrate IV .Q0M SHANELL Rx#:[id number] Norepinephrine 8 mg In 381.463 563.895 Sodium Chloride 0.9% 250 ml @ 0.03 MCG/KG/MIN 3. 425 mls/hr IV .Q24H SHANELL Rx#:[id number] Vasopressin 60 unit In 61.429 48.552 Sodium Chloride 0.9% 150 ml @ 0.03 UNITS/MIN 4.59 mls/hr IV .Q24H SHANELL Rx#: [id number] propofoL 1,000 mg In 64.9 Empty Bag 1 bag @ 15 MCG/ KG/MIN 5.31 mls/hr IV . [id number] SHANELL Rx#:[id number] Tube Feeding 495 585 90 Other 90 90 30 Output: Urine 25 35 0 Other: Voiding Method Indwelling Catheter Indwelling Catheter # Voids 0 ABP, PAP, CO, CI - Last Documented Arterial Blood Pressure 117/43 - Labs CBC & Chem 7: 07/07/22 03:52 07/07/22 03:52 Labs: Abnormal Lab Results - Last 24 Hours (Table) 07/06/22 07/06/22 07/06/22 Range/Units 11:17 11:52 13:13 WBC (3.8-10.6) k/uL RBC (4.30-5.90) m/uL Hgb (13.0-17.5) gm/dL Hct (39.0-53.0) % Neutrophils # (1.3-7.7) k/uL ABG pCO2 (35-45) mmHg ABG O2 Saturation (94-97) % ABG Lactic Acid (0.5-1.6) mmol/L Sodium (137-145) mmol/L Chloride (98-107) mmol/L Carbon Dioxide (22-30) mmol/L BUN (9-20) mg/dL Creatinine (0.66-1.25) mg/dL Glucose (74-99) mg/dL POC Glucose (mg/dL) 282 H 305 H 227 H (70-110) mg/dL Calcium (8.4-10.2) mg/dL Ionized Calcium Li (4.5-5.3) mg/dL AST (17-59) U/L ALT (4-49) U/L Alkaline Phosphatase (38-126) U/L Total Protein (6.3-8.2) g/dL Albumin (3.5-5.0) g/dL 07/06/22 07/06/22 07/06/22 Range/Units 14:08 14:58 17:06 WBC (3.8-10.6) k/uL RBC (4.30-5.90) m/uL Hgb (13.0-17.5) gm/dL Hct (39.0-53.0) % Neutrophils # (1.3-7.7) k/uL ABG pCO2 (35-45) mmHg ABG O2 Saturation (94-97) % ABG Lactic Acid (0.5-1.6) mmol/L Sodium (137-145) mmol/L Chloride (98-107) mmol/L Carbon Dioxide (22-30) mmol/L BUN (9-20) mg/dL Creatinine (0.66-1.25) mg/dL Glucose (74-99) mg/dL POC Glucose (mg/dL) 184 H 173 H 117 H (70-110) mg/dL Calcium (8.4-10.2) mg/dL Ionized Calcium Li (4.5-5.3) mg/dL AST (17-59) U/L ALT (4-49) U/L Alkaline Phosphatase (38-126) U/L Total Protein (6.3-8.2) g/dL Albumin (3.5-5.0) g/dL 07/06/22 07/06/22 07/06/22 Range/Units 19:23 21:11 22:08 WBC (3.8-10.6) k/uL RBC (4.30-5.90) m/uL Hgb (13.0-17.5) gm/dL Hct (39.0-53.0) % Neutrophils # (1.3-7.7) k/uL ABG pCO2 (35-45) mmHg ABG O2 Saturation (94-97) % ABG Lactic Acid (0.5-1.6) mmol/L Sodium (137-145) mmol/L Chloride (98-107) mmol/L Carbon Dioxide (22-30) mmol/L BUN (9-20) mg/dL Creatinine (0.66-1.25) mg/dL Glucose (74-99) mg/dL POC Glucose (mg/dL) 146 H 251 H 224 H (70-110) mg/dL Calcium (8.4-10.2) mg/dL Ionized Calcium Li (4.5-5.3) mg/dL AST (17-59) U/L ALT (4-49) U/L Alkaline Phosphatase (38-126) U/L Total Protein (6.3-8.2) g/dL Albumin (3.5-5.0) g/dL 07/06/22 07/06/22 07/07/22 Range/Units 22:58 23:55 01:02 WBC (3.8-10.6) k/uL RBC (4.30-5.90) m/uL Hgb (13.0-17.5) gm/dL Hct (39.0-53.0) % Neutrophils # (1.3-7.7) k/uL ABG pCO2 (35-45) mmHg ABG O2 Saturation (94-97) % ABG Lactic Acid (0.5-1.6) mmol/L Sodium (137-145) mmol/L Chloride (98-107) mmol/L Carbon Dioxide (22-30) mmol/L BUN (9-20) mg/dL Creatinine (0.66-1.25) mg/dL Glucose (74-99) mg/dL POC Glucose (mg/dL) 206 H 157 H 150 H (70-110) mg/dL Calcium (8.4-10.2) mg/dL Ionized Calcium Li (4.5-5.3) mg/dL AST (17-59) U/L ALT (4-49) U/L Alkaline Phosphatase (38-126) U/L Total Protein (6.3-8.2) g/dL Albumin (3.5-5.0) g/dL 07/07/22 07/07/22 07/07/22 Range/Units 02:01 03:00 03:52 WBC 17.0 H (3.8-10.6) k/uL RBC 2.63 L (4.30-5.90) m/uL Hgb 8.4 L (13.0-17.5) gm/dL Hct 25.1 L (39.0-53.0) % Neutrophils # 15.0 H (1.3-7.7) k/uL ABG pCO2 (35-45) mmHg ABG O2 Saturation (94-97) % ABG Lactic Acid (0.5-1.6) mmol/L Sodium (137-145) mmol/L Chloride (98-107) mmol/L Carbon Dioxide (22-30) mmol/L BUN (9-20) mg/dL Creatinine (0.66-1.25) mg/dL Glucose (74-99) mg/dL POC Glucose (mg/dL) 133 H 142 H (70-110) mg/dL Calcium (8.4-10.2) mg/dL Ionized Calcium Li (4.5-5.3) mg/dL AST (17-59) U/L ALT (4-49) U/L Alkaline Phosphatase (38-126) U/L Total Protein (6.3-8.2) g/dL Albumin (3.5-5.0) g/dL 07/07/22 07/07/22 07/07/22 Range/Units 03:52 03:52 03:56 WBC (3.8-10.6) k/uL RBC (4.30-5.90) m/uL Hgb (13.0-17.5) gm/dL Hct (39.0-53.0) % Neutrophils # (1.3-7.7) k/uL ABG pCO2 (35-45) mmHg ABG O2 Saturation (94-97) % ABG Lactic Acid 12.1 H* (0.5-1.6) mmol/L Sodium 133 L (137-145) mmol/L Chloride 93 L (98-107) mmol/L Carbon Dioxide 20 L (22-30) mmol/L BUN 93 H (9-20) mg/dL Creatinine 2.54 H (0.66-1.25) mg/dL Glucose 150 H (74-99) mg/dL POC Glucose (mg/dL) 167 H (70-110) mg/dL Calcium 6.3 L* (8.4-10.2) mg/dL Ionized Calcium Li 3.5 L* (4.5-5.3) mg/dL AST 3155 H (17-59) U/L ALT 166 H (4-49) U/L Alkaline Phosphatase 282 H (38-126) U/L Total Protein 3.9 L (6.3-8.2) g/dL Albumin 1.8 L (3.5-5.0) g/dL 07/07/22 07/07/22 07/07/22 Range/Units 04:55 05:23 05:53 WBC (3.8-10.6) k/uL RBC (4.30-5.90) m/uL Hgb (13.0-17.5) gm/dL Hct (39.0-53.0) % Neutrophils # (1.3-7.7) k/uL ABG pCO2 31 L (35-45) mmHg ABG O2 Saturation 98.3 H (94-97) % ABG Lactic Acid (0.5-1.6) mmol/L Sodium (137-145) mmol/L Chloride (98-107) mmol/L Carbon Dioxide (22-30) mmol/L BUN (9-20) mg/dL Creatinine (0.66-1.25) mg/dL Glucose (74-99) mg/dL POC Glucose (mg/dL) 153 H 152 H (70-110) mg/dL Calcium (8.4-10.2) mg/dL Ionized Calcium Li (4.5-5.3) mg/dL AST (17-59) U/L ALT (4-49) U/L Alkaline Phosphatase (38-126) U/L Total Protein (6.3-8.2) g/dL Albumin (3.5-5.0) g/dL 07/07/22 07/07/22 07/07/22 Range/Units 06:51 08:05 09:18 WBC (3.8-10.6) k/uL RBC (4.30-5.90) m/uL Hgb (13.0-17.5) gm/dL Hct (39.0-53.0) % Neutrophils # (1.3-7.7) k/uL ABG pCO2 (35-45) mmHg ABG O2 Saturation (94-97) % ABG Lactic Acid (0.5-1.6) mmol/L Sodium (137-145) mmol/L Chloride (98-107) mmol/L Carbon Dioxide (22-30) mmol/L BUN (9-20) mg/dL Creatinine (0.66-1.25) mg/dL Glucose (74-99) mg/dL POC Glucose (mg/dL) 128 H 133 H 166 H (70-110) mg/dL Calcium (8.4-10.2) mg/dL Ionized Calcium Li (4.5-5.3) mg/dL AST (17-59) U/L ALT (4-49) U/L Alkaline Phosphatase (38-126) U/L Total Protein (6.3-8.2) g/dL Albumin (3.5-5.0) g/dL 07/07/22 Range/Units 10:27 WBC (3.8-10.6) k/uL RBC (4.30-5.90) m/uL Hgb (13.0-17.5) gm/dL Hct (39.0-53.0) % Neutrophils # (1.3-7.7) k/uL ABG pCO2 (35-45) mmHg ABG O2 Saturation (94-97) % ABG Lactic Acid (0.5-1.6) mmol/L Sodium (137-145) mmol/L Chloride (98-107) mmol/L Carbon Dioxide (22-30) mmol/L BUN (9-20) mg/dL Creatinine (0.66-1.25) mg/dL Glucose (74-99) mg/dL POC Glucose (mg/dL) 185 H (70-110) mg/dL Calcium (8.4-10.2) mg/dL Ionized Calcium Li (4.5-5.3) mg/dL AST (17-59) U/L ALT (4-49) U/L Alkaline Phosphatase (38-126) U/L Total Protein (6.3-8.2) g/dL Albumin (3.5-5.0) g/dL Microbiology - Last 24 Hours (Table) 07/04/22 08:00 Blood Culture - Preliminary Blood No Growth after 72 hours 07/04/22 08:00 Blood Culture - Preliminary Blood No Growth after 72 hours 07/01/22 11:46 Blood Culture - Preliminary Blood No Growth after 120 hours 07/05/22 20:41 Gram Stain - Preliminary Sputum Sputum Culture - Preliminary Assessment and Plan Assessment: Symptoms * Pain - CPOT 6, continue Neurotin, Tylenol, and Morphine prn * Fatigue - + generalized weakness and fatigue * SOB - Yes, on 4L NC, Continue zithromax and rocephin * Insomnia - No * N/V - No * Anxiety - No * Depression - No * Confusion - Yes * Agitation - No * Hallucinations - No * Appetite/weight loss - NPO, failed swallow eval and MBS * Dysphagia - Yes, PEG tube in place, Tube feeding to start today * Constipation - Yes BM recorded. Continue miralax and colace * Incontinence - Edward catheter * Itch - No Plan: Summary/Goals - Spoke to the patient's RN. She stated there are no improvements in the patient's condition. Unfortunately, security had to be called yesterday to calm the patient's son down. Received a phone call from the patient's daughter, Caprice today. She was informed that her father is in septic shock with multisystem organ failure. We talked about his respiratory failure and need to be mechanically ventilated due to his LLL aspiration pneumonia and the patient being obtunded, to protect his airway. She was also informed that his heart is irritable and in and out of Afib with RVR with recorded rates as high a 170. He is also on two pressors, both maxed, to support his blood pressure. His MAP is still low and his heat is not providing enough perfusion to his organs, including his liver and kidneys. He now has a shock liver and renal failure with very little urine output. She was assured that the medical team is doing everything possible for her father, but unfortunately he has declined significantly in the last couple days. We went through 3 possible scenarios for the patient: 1 - We continue doing everything we can for the patient until his body fails and he codes. As a full code we would then to chest compressions, possible cardiovert him, and give him some medication in an attempt to resuscitate him. The likelihood of us being successful is almost zero and would cause pain and suffering at the end of his life. 2 - We continue doing everything we can for the patient until his body fails and he codes. If we make him a DNR, then we would not attempt to resuscitate him at this point and let nature take it's course. 3 - We could withdraw care. Medicate him to keep him pain free and comfortable. Then take him off the ventilator and the medications supporting hiss blood pressure and let him pass peacefully and as comfortably as possible. Caprice does not want her dad to suffer unnecessarily, but thinks she will have a hard time convincing her brother. He still wants everything done for their father. She stated at one point, a couple years ago, her father did say that he wanted to be a full code. But we are in a different place now, and probably worse off than he could imagine. Maycol also reported that her brother has been saying that he would be alone in the world if his father passes. She has called her aunt and cousins and asked them to reach out to him so he knows that he has the support of his family. She also asked if we could have a hospital side splitter visit the patient. She said her brother is turning to his kaylyn for comfort. She is worried that he might not want a side splitter to come. She was instructed to ask her brother, if he agrees I will do my best to find one to come. Code Status - Full code Malu [facility] Palliative Care Spectralink [id number] Email: [email or web address] Time with Patient: Greater than 30
[2022-07-07] MEDS: METOPROLOL TARTRATE 5 MG/5 ML VIAL IVP PRN (11:50)
--- NOTE | 2022-07-07 11:59 | P.PN ---
Subjective Progress Note Date: 07/07/22 Principal diagnosis: sepsis Patient had 2 episodes of a-fib with RVR last night, was given some metoprolol and responded, he is currently back to NSR. No urine output so far. He is still obtunded. Objective - Vital Signs Vital signs: Vital Signs Temp 100.6 F H 07/07/22 08:00 Pulse 79 07/07/22 11:00 Resp 28 H 07/07/22 11:00 BP 116/62 07/07/22 10:00 Pulse Ox 97 07/07/22 11:00 FiO2 50 07/07/22 11:19 Intake & Output 07/06/22 07/07/22 07/07/22 18:59 06:59 18:59 Intake Total 4105.441 3326.113 822 Output Total 25 35 0 Balance 4080.441 3291.113 822 Weight 73 kg Intake: IV 2800 1950 612 .9NS Pressure Line 12 Dextrose 5% in Water 1, 1800 1950 600 000 ml @ 150 mls/hr IV . Q7H40M SHANELL with Sodium Bicarb (1 Meq/ml) 150 ml Rx#:[id number] Sodium Chloride 0.9% 1, 1000 000 ml @ 999 mls/hr IV . Q1H1M ONE Rx#:[id number] Intake, IV Titration 720.441 701.113 0 Amount Insulin Regular 100 unit 212.649 88.666 0 In Sodium Chloride 0.9% 100 ml @ Titrate IV .Q0M SHANELL Rx#:[id number] Norepinephrine 8 mg In 381.463 563.895 Sodium Chloride 0.9% 250 ml @ 0.03 MCG/KG/MIN 3. 425 mls/hr IV .Q24H SHANELL Rx#:[id number] Vasopressin 60 unit In 61.429 48.552 Sodium Chloride 0.9% 150 ml @ 0.03 UNITS/MIN 4.59 mls/hr IV .Q24H SHANELL Rx#: [id number] propofoL 1,000 mg In 64.9 Empty Bag 1 bag @ 15 MCG/ KG/MIN 5.31 mls/hr IV . [id number] SHANELL Rx#:[id number] Tube Feeding 495 585 180 Other 90 90 30 Output: Urine 25 35 0 Other: Voiding Method Indwelling Catheter Indwelling Catheter Indwelling Catheter # Voids 0 ABP, PAP, CO, CI - Last Documented Arterial Blood Pressure 116/45 - Exam General: sedated, unresponsive, on mechanical ventilation. cachectic Derm: warm, dry, sacral decubitus wounds present on admission Head: atraumatic, normocephalic, symmetric Eyes: no lid lag, anicteric sclera Mouth: no lip lesion, mucus membranes moist Cardiovascular: S1S2 tachy, irregularly irreg, tachycardic, no murmur Lungs: bilateral rhonchi, mechanical breath sounds bilaterally. Abdominal: soft, no guarding, no appreciable organomegaly Ext: no edema, no contractures Neuro: grimaces to sternal rubs, not opening eyes spontaneously - Labs CBC & Chem 7: 07/07/22 03:52 07/07/22 03:52 Labs: Abnormal Lab Results - Last 24 Hours (Table) 07/06/22 07/06/22 07/06/22 Range/Units 13:13 14:08 14:58 WBC (3.8-10.6) k/uL RBC (4.30-5.90) m/uL Hgb (13.0-17.5) gm/dL Hct (39.0-53.0) % Neutrophils # (1.3-7.7) k/uL ABG pCO2 (35-45) mmHg ABG O2 Saturation (94-97) % ABG Lactic Acid (0.5-1.6) mmol/L Sodium (137-145) mmol/L Chloride (98-107) mmol/L Carbon Dioxide (22-30) mmol/L BUN (9-20) mg/dL Creatinine (0.66-1.25) mg/dL Glucose (74-99) mg/dL POC Glucose (mg/dL) 227 H 184 H 173 H (70-110) mg/dL Calcium (8.4-10.2) mg/dL Ionized Calcium Li (4.5-5.3) mg/dL AST (17-59) U/L ALT (4-49) U/L Alkaline Phosphatase (38-126) U/L Total Protein (6.3-8.2) g/dL Albumin (3.5-5.0) g/dL 07/06/22 07/06/22 07/06/22 Range/Units 17:06 19:23 21:11 WBC (3.8-10.6) k/uL RBC (4.30-5.90) m/uL Hgb (13.0-17.5) gm/dL Hct (39.0-53.0) % Neutrophils # (1.3-7.7) k/uL ABG pCO2 (35-45) mmHg ABG O2 Saturation (94-97) % ABG Lactic Acid (0.5-1.6) mmol/L Sodium (137-145) mmol/L Chloride (98-107) mmol/L Carbon Dioxide (22-30) mmol/L BUN (9-20) mg/dL Creatinine (0.66-1.25) mg/dL Glucose (74-99) mg/dL POC Glucose (mg/dL) 117 H 146 H 251 H (70-110) mg/dL Calcium (8.4-10.2) mg/dL Ionized Calcium Li (4.5-5.3) mg/dL AST (17-59) U/L ALT (4-49) U/L Alkaline Phosphatase (38-126) U/L Total Protein (6.3-8.2) g/dL Albumin (3.5-5.0) g/dL 07/06/22 07/06/22 07/06/22 Range/Units 22:08 22:58 23:55 WBC (3.8-10.6) k/uL RBC (4.30-5.90) m/uL Hgb (13.0-17.5) gm/dL Hct (39.0-53.0) % Neutrophils # (1.3-7.7) k/uL ABG pCO2 (35-45) mmHg ABG O2 Saturation (94-97) % ABG Lactic Acid (0.5-1.6) mmol/L Sodium (137-145) mmol/L Chloride (98-107) mmol/L Carbon Dioxide (22-30) mmol/L BUN (9-20) mg/dL Creatinine (0.66-1.25) mg/dL Glucose (74-99) mg/dL POC Glucose (mg/dL) 224 H 206 H 157 H (70-110) mg/dL Calcium (8.4-10.2) mg/dL Ionized Calcium Li (4.5-5.3) mg/dL AST (17-59) U/L ALT (4-49) U/L Alkaline Phosphatase (38-126) U/L Total Protein (6.3-8.2) g/dL Albumin (3.5-5.0) g/dL 07/07/22 07/07/22 07/07/22 Range/Units 01:02 02:01 03:00 WBC (3.8-10.6) k/uL RBC (4.30-5.90) m/uL Hgb (13.0-17.5) gm/dL Hct (39.0-53.0) % Neutrophils # (1.3-7.7) k/uL ABG pCO2 (35-45) mmHg ABG O2 Saturation (94-97) % ABG Lactic Acid (0.5-1.6) mmol/L Sodium (137-145) mmol/L Chloride (98-107) mmol/L Carbon Dioxide (22-30) mmol/L BUN (9-20) mg/dL Creatinine (0.66-1.25) mg/dL Glucose (74-99) mg/dL POC Glucose (mg/dL) 150 H 133 H 142 H (70-110) mg/dL Calcium (8.4-10.2) mg/dL Ionized Calcium Li (4.5-5.3) mg/dL AST (17-59) U/L ALT (4-49) U/L Alkaline Phosphatase (38-126) U/L Total Protein (6.3-8.2) g/dL Albumin (3.5-5.0) g/dL 07/07/22 07/07/22 07/07/22 Range/Units 03:52 03:52 03:52 WBC 17.0 H (3.8-10.6) k/uL RBC 2.63 L (4.30-5.90) m/uL Hgb 8.4 L (13.0-17.5) gm/dL Hct 25.1 L (39.0-53.0) % Neutrophils # 15.0 H (1.3-7.7) k/uL ABG pCO2 (35-45) mmHg ABG O2 Saturation (94-97) % ABG Lactic Acid 12.1 H* (0.5-1.6) mmol/L Sodium 133 L (137-145) mmol/L Chloride 93 L (98-107) mmol/L Carbon Dioxide 20 L (22-30) mmol/L BUN 93 H (9-20) mg/dL Creatinine 2.54 H (0.66-1.25) mg/dL Glucose 150 H (74-99) mg/dL POC Glucose (mg/dL) (70-110) mg/dL Calcium 6.3 L* (8.4-10.2) mg/dL Ionized Calcium Li 3.5 L* (4.5-5.3) mg/dL AST 3155 H (17-59) U/L ALT 166 H (4-49) U/L Alkaline Phosphatase 282 H (38-126) U/L Total Protein 3.9 L (6.3-8.2) g/dL Albumin 1.8 L (3.5-5.0) g/dL 07/07/22 07/07/22 07/07/22 Range/Units 03:56 04:55 05:23 WBC (3.8-10.6) k/uL RBC (4.30-5.90) m/uL Hgb (13.0-17.5) gm/dL Hct (39.0-53.0) % Neutrophils # (1.3-7.7) k/uL ABG pCO2 31 L (35-45) mmHg ABG O2 Saturation 98.3 H (94-97) % ABG Lactic Acid (0.5-1.6) mmol/L Sodium (137-145) mmol/L Chloride (98-107) mmol/L Carbon Dioxide (22-30) mmol/L BUN (9-20) mg/dL Creatinine (0.66-1.25) mg/dL Glucose (74-99) mg/dL POC Glucose (mg/dL) 167 H 153 H (70-110) mg/dL Calcium (8.4-10.2) mg/dL Ionized Calcium Li (4.5-5.3) mg/dL AST (17-59) U/L ALT (4-49) U/L Alkaline Phosphatase (38-126) U/L Total Protein (6.3-8.2) g/dL Albumin (3.5-5.0) g/dL 07/07/22 07/07/22 07/07/22 Range/Units 05:53 06:51 08:05 WBC (3.8-10.6) k/uL RBC (4.30-5.90) m/uL Hgb (13.0-17.5) gm/dL Hct (39.0-53.0) % Neutrophils # (1.3-7.7) k/uL ABG pCO2 (35-45) mmHg ABG O2 Saturation (94-97) % ABG Lactic Acid (0.5-1.6) mmol/L Sodium (137-145) mmol/L Chloride (98-107) mmol/L Carbon Dioxide (22-30) mmol/L BUN (9-20) mg/dL Creatinine (0.66-1.25) mg/dL Glucose (74-99) mg/dL POC Glucose (mg/dL) 152 H 128 H 133 H (70-110) mg/dL Calcium (8.4-10.2) mg/dL Ionized Calcium Li (4.5-5.3) mg/dL AST (17-59) U/L ALT (4-49) U/L Alkaline Phosphatase (38-126) U/L Total Protein (6.3-8.2) g/dL Albumin (3.5-5.0) g/dL 07/07/22 07/07/22 07/07/22 Range/Units 09:18 10:27 11:24 WBC (3.8-10.6) k/uL RBC (4.30-5.90) m/uL Hgb (13.0-17.5) gm/dL Hct (39.0-53.0) % Neutrophils # (1.3-7.7) k/uL ABG pCO2 (35-45) mmHg ABG O2 Saturation (94-97) % ABG Lactic Acid (0.5-1.6) mmol/L Sodium (137-145) mmol/L Chloride (98-107) mmol/L Carbon Dioxide (22-30) mmol/L BUN (9-20) mg/dL Creatinine (0.66-1.25) mg/dL Glucose (74-99) mg/dL POC Glucose (mg/dL) 166 H 185 H 159 H (70-110) mg/dL Calcium (8.4-10.2) mg/dL Ionized Calcium Li (4.5-5.3) mg/dL AST (17-59) U/L ALT (4-49) U/L Alkaline Phosphatase (38-126) U/L Total Protein (6.3-8.2) g/dL Albumin (3.5-5.0) g/dL Microbiology - Last 24 Hours (Table) 07/04/22 08:00 Blood Culture - Preliminary Blood No Growth after 72 hours 07/04/22 08:00 Blood Culture - Preliminary Blood No Growth after 72 hours 07/01/22 11:46 Blood Culture - Preliminary Blood No Growth after 120 hours 07/05/22 20:41 Gram Stain - Preliminary Sputum Sputum Culture - Preliminary Assessment and Plan Plan: Septic shock, 2/2 aspiration pneumonia Acute hypoxic respiratory failure Sacral decub ulcer present of admission Anuric YUKI Acute lactic acidosis, with anion gap metabolic acidosis Hypokalemia -Continue mechanical ventilation and pressors - continue broad spectrum antibiotics - IV fluid resuscitation, bicarb - nephrology following Acute metabolic encepholopathy Parkinson's disease -continued sinemet, holding amantadine -EEG, no seizures -CT - osseous metastatic disease - likely metabolic Hypernatremia -resolved Hypervolemic hyponatremia present on admission, resolved Acute on chronic systolic Heart Failure Exacerbation - resolved Severe protein calorie malnutrition -PEG feeds Wide complex tachycardia, atrial fibrillation with RVR - not on cardizem due to septic shock , now on amio - cardiology following stage IV prostate cancer -Oncology consult -Also seen by palliative -Prognosis remains poor Chronic conditions: Type II DM, coronary artery disease -Continue with home meds -Insulin sliding scale with blood glucose monitoring DVT prophylaxis -lovenox CODE STATUS: Full Code Anticipated discharge date: pending clinical course Anticipated discharge place: pending clinical course Case was discussed with son at the bedside poor prognosis explained to him but he still wants to ''give his father a chance'.
[2022-07-07] MEDS ORDERED: METOPROLOL TARTRATE 5 MG/5 ML VIAL IVP PRN (12:02)
[2022-07-07 13:06] LABS: Glucose,Whole Blood 114 mg/dL (70-110)
--- NOTE | 2022-07-07 14:15 | P.PN ---
Subjective Progress Note Date: 07/07/22 CHIEF COMPLAINT: Malnutrition HISTORY OF PRESENT ILLNESS: Patient remains in the ICU on mechanical ventil ation. Remains on vasopressin and norepinephrine. He is on propofol. Patient is status post PEG tube placement on 06/30/22. Febrile. WBC 17 E should be 8.4 platelets 181 sodium is 133 potassium is 4.8 creatinine 2.54 liver enzymes are down and slightly. Patient has had a bowel movement. Tube feeds currently at 45 mL per hour Patient seen and examined with Dr. holland PHYSICAL EXAM: VITAL SIGNS: Reviewed. GENERAL: no acute distress. ABDOMEN: Soft. Distended. Evidence of generalized edema. PEG tube site clean dry and intact ASSESSMENT: 1. Moderate protein calorie malnutrition status post PEG tube placement 2. Failed swallow evaluation 3. Dysphagia 4. 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 Parkinson's disease 6. Sepsis PLAN: -Continue ICU management -Resume tube feeds through the PEG tube -Continue supportive care Physician Marble Coper note has been reviewed by physician. Signing provider agrees with the documented findings, assessment, and plan of care. Objective - Vital Signs Vital signs: Vital Signs Temp 100.4 F H 07/07/22 12:00 Pulse 82 07/07/22 13:00 Resp 28 H 07/07/22 13:00 BP 85/58 07/07/22 13:00 Pulse Ox 100 07/07/22 13:00 FiO2 50 07/07/22 12:00 Intake & Output 07/06/22 07/07/22 07/07/22 18:59 06:59 18:59 Intake Total 4105.441 3326.113 1072.1 Output Total 25 35 0 Balance 4080.441 3291.113 1072.1 Weight 73 kg Intake: IV 2800 1950 765 .9NS Pressure Line 15 Dextrose 5% in Water 1, 1800 1950 750 000 ml @ 150 mls/hr IV . Q7H40M SHANELL with Sodium Bicarb (1 Meq/ml) 150 ml Rx#:[id number] Sodium Chloride 0.9% 1, 1000 000 ml @ 999 mls/hr IV . Q1H1M ONE Rx#:[id number] Intake, IV Titration 720.441 701.113 22.1 Amount Insulin Regular 100 unit 212.649 88.666 22.1 In Sodium Chloride 0.9% 100 ml @ Titrate IV .Q0M SHANELL Rx#:[id number] Norepinephrine 8 mg In 381.463 563.895 Sodium Chloride 0.9% 250 ml @ 0.03 MCG/KG/MIN 3. 425 mls/hr IV .Q24H SHANELL Rx#:[id number] Vasopressin 60 unit In 61.429 48.552 Sodium Chloride 0.9% 150 ml @ 0.03 UNITS/MIN 4.59 mls/hr IV .Q24H SHANELL Rx#: [id number] propofoL 1,000 mg In 64.9 Empty Bag 1 bag @ 15 MCG/ KG/MIN 5.31 mls/hr IV . [id number] SHANELL Rx#:[id number] Tube Feeding 495 585 225 Other 90 90 60 Output: Urine 25 35 0 Other: Voiding Method Indwelling Catheter Indwelling Catheter Indwelling Catheter # Voids 0 # Bowel Movements 1 ABP, PAP, CO, CI - Last Documented Arterial Blood Pressure 114/46 - Labs CBC & Chem 7: 07/07/22 03:52 07/07/22 03:52 Labs: Abnormal Lab Results - Last 24 Hours (Table) 07/06/22 07/06/22 07/06/22 Range/Units 14:58 17:06 19:23 WBC (3.8-10.6) k/uL RBC (4.30-5.90) m/uL Hgb (13.0-17.5) gm/dL Hct (39.0-53.0) % Neutrophils # (1.3-7.7) k/uL ABG pCO2 (35-45) mmHg ABG O2 Saturation (94-97) % ABG Lactic Acid (0.5-1.6) mmol/L Sodium (137-145) mmol/L Chloride (98-107) mmol/L Carbon Dioxide (22-30) mmol/L BUN (9-20) mg/dL Creatinine (0.66-1.25) mg/dL Glucose (74-99) mg/dL POC Glucose (mg/dL) 173 H 117 H 146 H (70-110) mg/dL Calcium (8.4-10.2) mg/dL Ionized Calcium Li (4.5-5.3) mg/dL AST (17-59) U/L ALT (4-49) U/L Alkaline Phosphatase (38-126) U/L Total Protein (6.3-8.2) g/dL Albumin (3.5-5.0) g/dL 07/06/22 07/06/22 07/06/22 Range/Units 21:11 22:08 22:58 WBC (3.8-10.6) k/uL RBC (4.30-5.90) m/uL Hgb (13.0-17.5) gm/dL Hct (39.0-53.0) % Neutrophils # (1.3-7.7) k/uL ABG pCO2 (35-45) mmHg ABG O2 Saturation (94-97) % ABG Lactic Acid (0.5-1.6) mmol/L Sodium (137-145) mmol/L Chloride (98-107) mmol/L Carbon Dioxide (22-30) mmol/L BUN (9-20) mg/dL Creatinine (0.66-1.25) mg/dL Glucose (74-99) mg/dL POC Glucose (mg/dL) 251 H 224 H 206 H (70-110) mg/dL Calcium (8.4-10.2) mg/dL Ionized Calcium Li (4.5-5.3) mg/dL AST (17-59) U/L ALT (4-49) U/L Alkaline Phosphatase (38-126) U/L Total Protein (6.3-8.2) g/dL Albumin (3.5-5.0) g/dL 07/06/22 07/07/22 07/07/22 Range/Units 23:55 01:02 02:01 WBC (3.8-10.6) k/uL RBC (4.30-5.90) m/uL Hgb (13.0-17.5) gm/dL Hct (39.0-53.0) % Neutrophils # (1.3-7.7) k/uL ABG pCO2 (35-45) mmHg ABG O2 Saturation (94-97) % ABG Lactic Acid (0.5-1.6) mmol/L Sodium (137-145) mmol/L Chloride (98-107) mmol/L Carbon Dioxide (22-30) mmol/L BUN (9-20) mg/dL Creatinine (0.66-1.25) mg/dL Glucose (74-99) mg/dL POC Glucose (mg/dL) 157 H 150 H 133 H (70-110) mg/dL Calcium (8.4-10.2) mg/dL Ionized Calcium Li (4.5-5.3) mg/dL AST (17-59) U/L ALT (4-49) U/L Alkaline Phosphatase (38-126) U/L Total Protein (6.3-8.2) g/dL Albumin (3.5-5.0) g/dL 07/07/22 07/07/22 07/07/22 Range/Units 03:00 03:52 03:52 WBC 17.0 H (3.8-10.6) k/uL RBC 2.63 L (4.30-5.90) m/uL Hgb 8.4 L (13.0-17.5) gm/dL Hct 25.1 L (39.0-53.0) % Neutrophils # 15.0 H (1.3-7.7) k/uL ABG pCO2 (35-45) mmHg ABG O2 Saturation (94-97) % ABG Lactic Acid 12.1 H* (0.5-1.6) mmol/L Sodium (137-145) mmol/L Chloride (98-107) mmol/L Carbon Dioxide (22-30) mmol/L BUN (9-20) mg/dL Creatinine (0.66-1.25) mg/dL Glucose (74-99) mg/dL POC Glucose (mg/dL) 142 H (70-110) mg/dL Calcium (8.4-10.2) mg/dL Ionized Calcium Li (4.5-5.3) mg/dL AST (17-59) U/L ALT (4-49) U/L Alkaline Phosphatase (38-126) U/L Total Protein (6.3-8.2) g/dL Albumin (3.5-5.0) g/dL 07/07/22 07/07/22 07/07/22 Range/Units 03:52 03:56 04:55 WBC (3.8-10.6) k/uL RBC (4.30-5.90) m/uL Hgb (13.0-17.5) gm/dL Hct (39.0-53.0) % Neutrophils # (1.3-7.7) k/uL ABG pCO2 (35-45) mmHg ABG O2 Saturation (94-97) % ABG Lactic Acid (0.5-1.6) mmol/L Sodium 133 L (137-145) mmol/L Chloride 93 L (98-107) mmol/L Carbon Dioxide 20 L (22-30) mmol/L BUN 93 H (9-20) mg/dL Creatinine 2.54 H (0.66-1.25) mg/dL Glucose 150 H (74-99) mg/dL POC Glucose (mg/dL) 167 H 153 H (70-110) mg/dL Calcium 6.3 L* (8.4-10.2) mg/dL Ionized Calcium Li 3.5 L* (4.5-5.3) mg/dL AST 3155 H (17-59) U/L ALT 166 H (4-49) U/L Alkaline Phosphatase 282 H (38-126) U/L Total Protein 3.9 L (6.3-8.2) g/dL Albumin 1.8 L (3.5-5.0) g/dL 07/07/22 07/07/22 07/07/22 Range/Units 05:23 05:53 06:51 WBC (3.8-10.6) k/uL RBC (4.30-5.90) m/uL Hgb (13.0-17.5) gm/dL Hct (39.0-53.0) % Neutrophils # (1.3-7.7) k/uL ABG pCO2 31 L (35-45) mmHg ABG O2 Saturation 98.3 H (94-97) % ABG Lactic Acid (0.5-1.6) mmol/L Sodium (137-145) mmol/L Chloride (98-107) mmol/L Carbon Dioxide (22-30) mmol/L BUN (9-20) mg/dL Creatinine (0.66-1.25) mg/dL Glucose (74-99) mg/dL POC Glucose (mg/dL) 152 H 128 H (70-110) mg/dL Calcium (8.4-10.2) mg/dL Ionized Calcium Li (4.5-5.3) mg/dL AST (17-59) U/L ALT (4-49) U/L Alkaline Phosphatase (38-126) U/L Total Protein (6.3-8.2) g/dL Albumin (3.5-5.0) g/dL 07/07/22 07/07/22 07/07/22 Range/Units 08:05 09:18 10:27 WBC (3.8-10.6) k/uL RBC (4.30-5.90) m/uL Hgb (13.0-17.5) gm/dL Hct (39.0-53.0) % Neutrophils # (1.3-7.7) k/uL ABG pCO2 (35-45) mmHg ABG O2 Saturation (94-97) % ABG Lactic Acid (0.5-1.6) mmol/L Sodium (137-145) mmol/L Chloride (98-107) mmol/L Carbon Dioxide (22-30) mmol/L BUN (9-20) mg/dL Creatinine (0.66-1.25) mg/dL Glucose (74-99) mg/dL POC Glucose (mg/dL) 133 H 166 H 185 H (70-110) mg/dL Calcium (8.4-10.2) mg/dL Ionized Calcium Li (4.5-5.3) mg/dL AST (17-59) U/L ALT (4-49) U/L Alkaline Phosphatase (38-126) U/L Total Protein (6.3-8.2) g/dL Albumin (3.5-5.0) g/dL 07/07/22 07/07/22 Range/Units 11:24 13:04 WBC (3.8-10.6) k/uL RBC (4.30-5.90) m/uL Hgb (13.0-17.5) gm/dL Hct (39.0-53.0) % Neutrophils # (1.3-7.7) k/uL ABG pCO2 (35-45) mmHg ABG O2 Saturation (94-97) % ABG Lactic Acid (0.5-1.6) mmol/L Sodium (137-145) mmol/L Chloride (98-107) mmol/L Carbon Dioxide (22-30) mmol/L BUN (9-20) mg/dL Creatinine (0.66-1.25) mg/dL Glucose (74-99) mg/dL POC Glucose (mg/dL) 159 H 114 H (70-110) mg/dL Calcium (8.4-10.2) mg/dL Ionized Calcium Li (4.5-5.3) mg/dL AST (17-59) U/L ALT (4-49) U/L Alkaline Phosphatase (38-126) U/L Total Protein (6.3-8.2) g/dL Albumin (3.5-5.0) g/dL Microbiology - Last 24 Hours (Table) 07/01/22 11:46 Blood Culture - Final Blood No Growth after 144 hours 07/05/22 20:41 Gram Stain - Preliminary Sputum Sputum Culture - Preliminary Presumptive Staph aureus 07/04/22 08:00 Blood Culture - Preliminary Blood No Growth after 72 hours 07/04/22 08:00 Blood Culture - Preliminary Blood No Growth after 72 hours
[2022-07-07 14:18] LABS: Glucose,Whole Blood 111 mg/dL (70-110)
[2022-07-07 15:20] LABS: Glucose,Whole Blood 118 mg/dL (70-110)
[2022-07-07 17:09] LABS: Glucose,Whole Blood 168 mg/dL (70-110)
[2022-07-07 18:23] LABS: Glucose,Whole Blood 180 mg/dL (70-110)
[2022-07-07 19:11] LABS: Glucose,Whole Blood 167 mg/dL (70-110)
[2022-07-07] MEDS: VASOPRESSIN 60 UNIT in SODIUM CHLORIDE 0.9% 150 ML IV SCH (19:53)
[2022-07-07 19:59] LABS: Glucose,Whole Blood 192 mg/dL (70-110)
[2022-07-07 20:54] LABS: Glucose,Whole Blood 188 mg/dL (70-110)
[2022-07-07] MEDS: NON FORMULARY DRUG (Enzalutamide [Xtandi] 40 MG Capsule) PO SCH (20:59)
[2022-07-07 22:00] LABS: Glucose,Whole Blood 178 mg/dL (70-110)
[2022-07-07 22:57] LABS: Glucose,Whole Blood 154 mg/dL (70-110)
[2022-07-07] MEDS: AMIODARONE 360 MG in DEXTROSE 5% IN WATER 200 ML IV ONE ×2 (23:05)
[2022-07-08 00:02] LABS: Glucose,Whole Blood 134 mg/dL (70-110)
[2022-07-08] MEDS: DEXTROSE 5% IN WATER 1,000 ML with SODIUM BICARB (1 MEQ/ML) 150 ML IV SCH ×3 (00:06→17:03)
--- NOTE | 2022-07-08 00:11 | P.PN ---
Subjective Progress Note Date: 07/07/22 07/07/2022: Patient's son and daughter were both present today. Patient continues to be comatose. He is on very low-dose propofol 10 mcg/g/m. Patient is on Levophed 0.5 g per program per minute and vasopressin at 0.04. His blood pressure is maintained at 125/45. Patient is also on vancomycin and Zosyn. WBC has gone up. No seizure-like activity. 07/06/2022: Patient was seen for a follow-up. Patient's daughter and son both were present today. Patient continues to be on propofol 10 g per program per minute. Patient also on very high-dose of levofed at 0.3 mcg/g/m. Patient also has atrial fibrillation with rapid ventricular rate, for which he received Lopressor, which decreased the blood pressure earlier. Also on NeoSynephrine. Patient is not twitching anymore. Patient's daughter has noticed that sometimes his forehead would twitch. 07/05/2022: Patient's son was present today. Patient apparently was transferred to ICU at 7:30 AM because of impending respiratory failure, agonal breathing. Patient was intubated at 8:30 AM today. Patient is on maximum dose of Mustapha- Synephrine. Patient currently on propofol 10 mcg/g/m. Patient will be receiving 1 unit of packed RBC. Patient said has numerous questions about his neurological and medical status. He wants to make sure patient receives his dose of Sinemet. I'll related to the nurse. Myoclonic jerk has remarkably reduce. 07/04/2022: Patient was seen for a follow-up. Patient's son was present today. Per his report, patient has become slightly worse today. He is breathing at 30/m. He is saturating at 91% on 15 L a minute of facemask. His myoclonic twitching has improved. Patient still very lethargic. 06/26/2022: Patient was seen for a follow-up. Patient's aunt was present today as well. Still not able to meet patient's son. Patient's aunt has mentioned that patient's daughter who lives in [place] wants comfort care, whereas the son wants full code, and all treatments possible. Patient appears more comfortable today. Less myoclonic jerks. Objective - Vital Signs Vital signs: Vital Signs Temp 99.5 F 07/07/22 16:00 Pulse 71 07/07/22 17:00 Resp 26 H 07/07/22 17:00 BP 109/48 07/07/22 14:00 Pulse Ox 93 L 07/07/22 17:00 FiO2 50 07/07/22 16:00 Intake & Output 07/06/22 07/07/22 07/07/22 18:59 06:59 18:59 Intake Total 4105.441 3326.113 2436.535 Output Total 25 35 0 Balance 4080.441 3291.113 2436.535 Weight 73 kg Intake: IV 2800 1950 1530 .9NS Pressure Line 30 Dextrose 5% in Water 1, 1800 1950 1500 000 ml @ 150 mls/hr IV . Q7H40M [facility] with Sodium Bicarb (1 Meq/ml) 150 ml Rx#:[id number] Sodium Chloride 0.9% 1, 1000 000 ml @ 999 mls/hr IV . Q1H1M [facility] Rx#:[id number] Intake, IV Titration 720.441 701.113 366.535 Amount Insulin Regular 100 unit 212.649 88.666 22.1 In Sodium Chloride 0.9% 100 ml @ Titrate IV .Q0M [facility] Rx#:[id number] Norepinephrine 8 mg In 381.463 563.895 258 Sodium Chloride 0.9% 250 ml @ 0.03 MCG/KG/MIN 3. 425 mls/hr IV .Q24H [facility] Rx#:[id number] Vasopressin 60 unit In 61.429 48.552 Sodium Chloride 0.9% 150 ml @ 0.03 UNITS/MIN 4.59 mls/hr IV .Q24H [facility] Rx#: [id number] propofoL 1,000 mg In 64.9 86.435 Empty Bag 1 bag @ 15 MCG/ KG/MIN 5.31 mls/hr IV . [id number] [facility] Rx#:[id number] Tube Feeding 495 585 450 Other 90 90 90 Output: Urine 25 35 0 Other: Voiding Method Indwelling Catheter Indwelling Catheter Indwelling Catheter # Voids 0 # Bowel Movements 1 ABP, PAP, CO, CI - Last Documented Arterial Blood Pressure 122/45 - Exam Patient is comatose. GCS is 3. Patient does not respond to calling his name. No response to nailbed pressure. Patient is intubated, sedated with propofol 10 mcg/kg/m. Patient appears emaciated. Pupils are equal and reactive. No myoclonic jerks. Still has petichae in his arms. Patient has severe peripheral edema. Appears very pale, extremely sick. Patient has developed purplish discoloration of the fingertips and the toes. Some mottling noticed in the palms. Tone is decreased in the arms and legs. No rigidity. - Labs CBC & Chem 7: 07/07/22 03:52 07/07/22 03:52 Labs: Abnormal Lab Results - Last 24 Hours (Table) 07/06/22 07/06/22 07/06/22 Range/Units 19:23 21:11 22:08 WBC (3.8-10.6) k/uL RBC (4.30-5.90) m/uL Hgb (13.0-17.5) gm/dL Hct (39.0-53.0) % Neutrophils # (1.3-7.7) k/uL ABG pCO2 (35-45) mmHg ABG O2 Saturation (94-97) % ABG Lactic Acid (0.5-1.6) mmol/L Sodium (137-145) mmol/L Chloride (98-107) mmol/L Carbon Dioxide (22-30) mmol/L BUN (9-20) mg/dL Creatinine (0.66-1.25) mg/dL Glucose (74-99) mg/dL POC Glucose (mg/dL) 146 H 251 H 224 H (70-110) mg/dL Calcium (8.4-10.2) mg/dL Ionized Calcium Li (4.5-5.3) mg/dL AST (17-59) U/L ALT (4-49) U/L Alkaline Phosphatase (38-126) U/L Total Protein (6.3-8.2) g/dL Albumin (3.5-5.0) g/dL 07/06/22 07/06/22 07/07/22 Range/Units 22:58 23:55 01:02 WBC (3.8-10.6) k/uL RBC (4.30-5.90) m/uL Hgb (13.0-17.5) gm/dL Hct (39.0-53.0) % Neutrophils # (1.3-7.7) k/uL ABG pCO2 (35-45) mmHg ABG O2 Saturation (94-97) % ABG Lactic Acid (0.5-1.6) mmol/L Sodium (137-145) mmol/L Chloride (98-107) mmol/L Carbon Dioxide (22-30) mmol/L BUN (9-20) mg/dL Creatinine (0.66-1.25) mg/dL Glucose (74-99) mg/dL POC Glucose (mg/dL) 206 H 157 H 150 H (70-110) mg/dL Calcium (8.4-10.2) mg/dL Ionized Calcium Li (4.5-5.3) mg/dL AST (17-59) U/L ALT (4-49) U/L Alkaline Phosphatase (38-126) U/L Total Protein (6.3-8.2) g/dL Albumin (3.5-5.0) g/dL 07/07/22 07/07/22 07/07/22 Range/Units 02:01 03:00 03:52 WBC 17.0 H (3.8-10.6) k/uL RBC 2.63 L (4.30-5.90) m/uL Hgb 8.4 L (13.0-17.5) gm/dL Hct 25.1 L (39.0-53.0) % Neutrophils # 15.0 H (1.3-7.7) k/uL ABG pCO2 (35-45) mmHg ABG O2 Saturation (94-97) % ABG Lactic Acid (0.5-1.6) mmol/L Sodium (137-145) mmol/L Chloride (98-107) mmol/L Carbon Dioxide (22-30) mmol/L BUN (9-20) mg/dL Creatinine (0.66-1.25) mg/dL Glucose (74-99) mg/dL POC Glucose (mg/dL) 133 H 142 H (70-110) mg/dL Calcium (8.4-10.2) mg/dL Ionized Calcium Li (4.5-5.3) mg/dL AST (17-59) U/L ALT (4-49) U/L Alkaline Phosphatase (38-126) U/L Total Protein (6.3-8.2) g/dL Albumin (3.5-5.0) g/dL 07/07/22 07/07/22 07/07/22 Range/Units 03:52 03:52 03:56 WBC (3.8-10.6) k/uL RBC (4.30-5.90) m/uL Hgb (13.0-17.5) gm/dL Hct (39.0-53.0) % Neutrophils # (1.3-7.7) k/uL ABG pCO2 (35-45) mmHg ABG O2 Saturation (94-97) % ABG Lactic Acid 12.1 H* (0.5-1.6) mmol/L Sodium 133 L (137-145) mmol/L Chloride 93 L (98-107) mmol/L Carbon Dioxide 20 L (22-30) mmol/L BUN 93 H (9-20) mg/dL Creatinine 2.54 H (0.66-1.25) mg/dL Glucose 150 H (74-99) mg/dL POC Glucose (mg/dL) 167 H (70-110) mg/dL Calcium 6.3 L* (8.4-10.2) mg/dL Ionized Calcium Li 3.5 L* (4.5-5.3) mg/dL AST 3155 H (17-59) U/L ALT 166 H (4-49) U/L Alkaline Phosphatase 282 H (38-126) U/L Total Protein 3.9 L (6.3-8.2) g/dL Albumin 1.8 L (3.5-5.0) g/dL 07/07/22 07/07/22 07/07/22 Range/Units 04:55 05:23 05:53 WBC (3.8-10.6) k/uL RBC (4.30-5.90) m/uL Hgb (13.0-17.5) gm/dL Hct (39.0-53.0) % Neutrophils # (1.3-7.7) k/uL ABG pCO2 31 L (35-45) mmHg ABG O2 Saturation 98.3 H (94-97) % ABG Lactic Acid (0.5-1.6) mmol/L Sodium (137-145) mmol/L Chloride (98-107) mmol/L Carbon Dioxide (22-30) mmol/L BUN (9-20) mg/dL Creatinine (0.66-1.25) mg/dL Glucose (74-99) mg/dL POC Glucose (mg/dL) 153 H 152 H (70-110) mg/dL Calcium (8.4-10.2) mg/dL Ionized Calcium Li (4.5-5.3) mg/dL AST (17-59) U/L ALT (4-49) U/L Alkaline Phosphatase (38-126) U/L Total Protein (6.3-8.2) g/dL Albumin (3.5-5.0) g/dL 07/07/22 07/07/22 07/07/22 Range/Units 06:51 08:05 09:18 WBC (3.8-10.6) k/uL RBC (4.30-5.90) m/uL Hgb (13.0-17.5) gm/dL Hct (39.0-53.0) % Neutrophils # (1.3-7.7) k/uL ABG pCO2 (35-45) mmHg ABG O2 Saturation (94-97) % ABG Lactic Acid (0.5-1.6) mmol/L Sodium (137-145) mmol/L Chloride (98-107) mmol/L Carbon Dioxide (22-30) mmol/L BUN (9-20) mg/dL Creatinine (0.66-1.25) mg/dL Glucose (74-99) mg/dL POC Glucose (mg/dL) 128 H 133 H 166 H (70-110) mg/dL Calcium (8.4-10.2) mg/dL Ionized Calcium Li (4.5-5.3) mg/dL AST (17-59) U/L ALT (4-49) U/L Alkaline Phosphatase (38-126) U/L Total Protein (6.3-8.2) g/dL Albumin (3.5-5.0) g/dL 07/07/22 07/07/22 07/07/22 Range/Units 10:27 11:24 13:04 WBC (3.8-10.6) k/uL RBC (4.30-5.90) m/uL Hgb (13.0-17.5) gm/dL Hct (39.0-53.0) % Neutrophils # (1.3-7.7) k/uL ABG pCO2 (35-45) mmHg ABG O2 Saturation (94-97) % ABG Lactic Acid (0.5-1.6) mmol/L Sodium (137-145) mmol/L Chloride (98-107) mmol/L Carbon Dioxide (22-30) mmol/L BUN (9-20) mg/dL Creatinine (0.66-1.25) mg/dL Glucose (74-99) mg/dL POC Glucose (mg/dL) 185 H 159 H 114 H (70-110) mg/dL Calcium (8.4-10.2) mg/dL Ionized Calcium Li (4.5-5.3) mg/dL AST (17-59) U/L ALT (4-49) U/L Alkaline Phosphatase (38-126) U/L Total Protein (6.3-8.2) g/dL Albumin (3.5-5.0) g/dL 07/07/22 07/07/22 07/07/22 Range/Units 14:16 15:18 17:07 WBC (3.8-10.6) k/uL RBC (4.30-5.90) m/uL Hgb (13.0-17.5) gm/dL Hct (39.0-53.0) % Neutrophils # (1.3-7.7) k/uL ABG pCO2 (35-45) mmHg ABG O2 Saturation (94-97) % ABG Lactic Acid (0.5-1.6) mmol/L Sodium (137-145) mmol/L Chloride (98-107) mmol/L Carbon Dioxide (22-30) mmol/L BUN (9-20) mg/dL Creatinine (0.66-1.25) mg/dL Glucose (74-99) mg/dL POC Glucose (mg/dL) 111 H 118 H 168 H (70-110) mg/dL Calcium (8.4-10.2) mg/dL Ionized Calcium Li (4.5-5.3) mg/dL AST (17-59) U/L ALT (4-49) U/L Alkaline Phosphatase (38-126) U/L Total Protein (6.3-8.2) g/dL Albumin (3.5-5.0) g/dL Microbiology - Last 24 Hours (Table) 07/01/22 11:46 Blood Culture - Final Blood No Growth after 144 hours 07/05/22 20:41 Gram Stain - Preliminary Sputum Sputum Culture - Preliminary Presumptive Staph aureus 07/04/22 08:00 Blood Culture - Preliminary Blood No Growth after 72 hours 07/04/22 08:00 Blood Culture - Preliminary Blood No Growth after 72 hours Assessment and Plan Assessment: * Altered mental status, likely due to toxic metabolic encephalopathy, very severe degree. Reasons multifactorial as mentioned below. * Ventilator-dependent respiratory failure, on mechanical ventilation. * Possible Sepsis with multiorgan dysfunction. * Hyponatremia, resolved * Acute renal insufficiency/failure, worsening * Elevated liver enzymes due to shock liver * Lactic acidosis * Acute pulmonary edema * Metastatic prostate cancer with bony metastasis * CAD * Diabetes * Hyperlipidemia * Hypertension * Parkinson's disease Plan: * Patient is comatose. Informed patient's son and daughter about current neurological status. Informed them of poor prognosis. They expressed understanding. * Discontinue amantadine * Continue Sinemet 25/100, 2 tablet 4 times a day. Patient's son very persistent to make sure patient receives his Sinemet. * Treatment of other medical conditions as per critical care, IM and other specialties. * Prognosis is extremely poor based upon multiple comorbid conditions including terminal prostate cancer. * Supportive care. Discussed with nursing staff.
[2022-07-08 00:57] LABS: Glucose,Whole Blood 135 mg/dL (70-110)
[2022-07-08 02:06] LABS: Glucose,Whole Blood 167 mg/dL (70-110)
[2022-07-08] MEDS: INSULIN REGULAR 100 UNIT in SODIUM CHLORIDE 0.9% 100 ML IV SCH (03:00)
[2022-07-08 03:01] LABS: Glucose,Whole Blood 189 mg/dL (70-110)
[2022-07-08 04:01] LABS: Glucose,Whole Blood 191 mg/dL (70-110)
[2022-07-08] MEDS: PIPERACILLIN-TAZOBACTAM 3.375 GM in SODIUM CHLORIDE 0.9% 100 ML IVPB SCH (04:02)
[2022-07-08] MEDS: NOREPINEPHRINE 8 MG in SODIUM CHLORIDE 0.9% 250 ML IV SCH ×3 (04:04→15:53)
[2022-07-08 04:20] LABS: Basophils # (A) 0.1 k/uL (0-0.2); Basophils % (A) 0 %; Eosinophils % (A) 0 %; HGB 7.8 gm/dL (13.0-17.5); Hypochromasia Slight; Lymphocytes # (A) 1.2 k/uL (1.0-4.8); Lymphocytes % (A) 5 %; MCH 31.5 pg (25.0-35.0); MCHC 32.7 g/dL (31.0-37.0); MCV 96.4 fL (80.0-100.0); Mean Platelet Volume 13.4; Monocytes # (A) 1.7 k/uL (0-1.0); Monocytes % (A) 8 %; Neutrophils # (A) 18.9 k/uL (1.3-7.7); Neutrophils % (A) 85 %; Platelet Count 151 k/uL (150-450); RBC 2.49 m/uL (4.30-5.90); RDW 14.8 % (11.5-15.5); WBC 22.1 k/uL (3.8-10.6)
[2022-07-08 04:55] LABS: Glucose,Whole Blood 203 mg/dL (70-110)
[2022-07-08 05:16] LABS: Albumin 1.6 g/dL (3.5-5.0); Potassium 4.5 mmol/L (3.5-5.1); Total Bilirubin 1.3 mg/dL (0.2-1.3); Total Protein 3.6 g/dL (6.3-8.2)
[2022-07-08 05:28] LABS: Calcium 6.3 mg/dL (8.4-10.2)
[2022-07-08] MEDS ORDERED: AMIODARONE 360 MG in DEXTROSE 5% IN WATER 200 ML IV ONE ×2 (05:35)
[2022-07-08] MEDS: AMIODARONE 360 MG in DEXTROSE 5% IN WATER 200 ML IV ONE ×2 (05:46)
[2022-07-08 05:47] LABS: Glucose,Whole Blood 195 mg/dL (70-110)
[2022-07-08 05:47] LABS: ABG HCO3 17 mmol/L (21-25); ABG Oxygen Saturation 95.8 % (94-97); ABG PCO2 29 mmHg (35-45); ABG PH 7.38 (7.35-7.45); ABG PO2 82 mmHg (83-108); ABG TCO2 18 mmol/L (19-24); Allen Test Performed? Yes
[2022-07-08] MEDS ORDERED: CALCIUM GLUCONATE IN NACL 2 GM in SALINE 1 100ML.BAG IVPB ONE (06:04)
[2022-07-08 06:53] LABS: Glucose,Whole Blood 183 mg/dL (70-110)
[2022-07-08] MEDS: CARBIDOPA-LEVODOPA 25-100 MG 1 EACH TAB PO SCH ×3 (06:56→17:26)
--- NOTE | 2022-07-08 07:07 | P.PN ---
Subjective Progress Note Date: 07/08/22 PROGRESS NOTE The patient was admitted to the hospital on June 24, he has a known history of CAD, post percutaneous revascularization history of cardiomyopathy, prostate cancer with metastasis. He was seen by Dr. Naranjo and subsequently by Dr. Dominguez. Earlier today he became unstable, hypotensive and tachypnea in addition to tachycardic in atrial fibrillation, requiring mechanical ventilation. He is intubated at this time, back in sinus mechanism on IV amiodarone and vasopressor. He is anemic. His past history is remarkable for diabetes, CAD, dementia and Parkinson disease. His son was adamant about having full code. He is in sinus mechanism at this time with single PACs and PVCs. There is no episodes of ventricular tachycardia. The patient had the acute lactic acidosis with possible sepsis and hypotension with worsening mental status. He has a sacral decubitus ulcer. July 06: The patient remains intubated with episodes of paroxysmal atrial fibrillation, hypotensive when he is in atrial fibrillation he rated he continues to be on IV amiodarone, received an additional bolus during the night. His urine output has been poor. He is on norepinephrine and vasopressin. There is no evidence of ventricular ectopic activity. Requiring large amount of vasopressors to maintain blood pressure. July 07: The patient remains intubated, on high-dose norepinephrine and vasopressin. He continues to have episodes of paroxysmal atrial fibrillation and continues to be on IV amiodarone. He has no urine output. He is nonresponsive. No ventricular ectopic activity. He is getting tube feeding. He remains on PEEP. There is evidence of worsening renal function and acute liver injury. No significant improvement compared to yesterday. July 08: The patient remains intubated, unresponsive. He continues on IV amiodarone as well as norepinephrine. He continues to have episodes of atrial fibrillation with rapid ventricle response and associated hypotension. He is back in sinus mechanism at this time. He has no urinary output. He is getting tube feeding. Prognosis remains extremely poor. Medications: Amiodarone, aspirin, Lovenox subcu, norepinephrine, vasopressin, Zosyn, vancomycin, IV Lopressor on a when necessary basis PHYSICAL EXAMINATION: Blood pressure 110-120 heart rate 70 in sinus mechanism, was in atrial fibrillation earlier, when in atrial fibrillation heart rate in the 120s, intubated, pale LUNGS: Clear to auscultation anteriorly HEART: Regular rate and rhythm, S1, S2. No S3. systolic ejection murmur ABDOMEN: Soft, no organomegaly, positive bowel sounds EXTREMETIES: 1-2+ edema with decreased pulses LAB: Blood cell 22.1, hemoglobin 7.8. Potassium 4.5, BUN 93, creatinine 3.21, calcium 6.3, AST 1370 IMPRESSION: 1. Multiorgan failure with respiratory failure and sepsis 2. Profound hypotension 3. Severe anemia 4. Worsening renal function with anuria, with rapid progression 5. Paroxysmal atrial fibrillation 6. History of CAD 7. History of mild cardiomyopathy 8. Decubitus ulcer 9. Prostate cancer PLAN: 1. Continue IV amiodarone for now 2. IV Lopressor as needed control blood pressure 3. Prognosis is extremely poor, likelihood of survival is extremely low. From the cardiac standpoint we will continue on the IV amiodarone. We will see him on as-needed basis. Please feel free to call us for any question. Objective - Vital Signs Vital signs: Vital Signs Temp 98.2 F 07/08/22 04:00 Pulse 64 07/08/22 07:00 Resp 26 H 07/08/22 07:00 BP 109/48 07/07/22 14:00 Pulse Ox 98 07/08/22 07:00 FiO2 70 07/08/22 07:00 Intake & Output 07/07/22 07/08/22 07/08/22 18:59 06:59 18:59 Intake Total 2843.839 3688.568 3.615 Output Total 0 20 Balance 2843.839 3668.568 3.615 Weight 78.6 kg Intake: IV 1683 1989 .9NS Pressure Line 33 39 Dextrose 5% in Water 1, 1650 1950 000 ml @ 150 mls/hr IV . Q7H40M [facility] with Sodium Bicarb (1 Meq/ml) 150 ml Rx#:[id number] Intake, IV Titration 936.982 0590.568 3.615 Amount Amiodarone 360 mg In 200 Dextrose 5% in Water 200 ml @ 1 MG/MIN 33.333 mls/ hr IV .Q6H [facility] Rx#: [id number] Insulin Regular 100 unit 22.1 34.043 In Sodium Chloride 0.9% 100 ml @ Titrate IV .Q0M [facility] Rx#:[id number] Norepinephrine 8 mg In 467.304 644.563 3.615 Sodium Chloride 0.9% 250 ml @ 0.03 MCG/KG/MIN 3. 425 mls/hr IV .Q24H [facility] Rx#:[id number] Vasopressin 60 unit In 145.962 Sodium Chloride 0.9% 150 ml @ 0.03 UNITS/MIN 4.59 mls/hr IV .Q24H [facility] Rx#: [id number] propofoL 1,000 mg In 86.435 Empty Bag 1 bag @ 15 MCG/ KG/MIN 5.31 mls/hr IV . [id number] [facility] Rx#:[id number] Tube Feeding 495 585 Other 90 90 Output: Urine 0 20 Other: Voiding Method Indwelling Catheter Indwelling Catheter # Bowel Movements 1 1 ABP, PAP, CO, CI - Last Documented Arterial Blood Pressure 152/46 - Labs CBC & Chem 7: 07/08/22 04:00 07/08/22 04:00 Labs: Abnormal Lab Results - Last 24 Hours (Table) 07/07/22 07/07/22 07/07/22 Range/Units 08:05 09:18 10:27 WBC (3.8-10.6) k/uL RBC (4.30-5.90) m/uL Hgb (13.0-17.5) gm/dL Hct (39.0-53.0) % Neutrophils # (1.3-7.7) k/uL Monocytes # (0-1.0) k/uL ABG pCO2 (35-45) mmHg ABG pO2 (83-108) mmHg ABG HCO3 (21-25) mmol/L ABG Total CO2 (19-24) mmol/L Sodium (137-145) mmol/L Chloride (98-107) mmol/L Carbon Dioxide (22-30) mmol/L BUN (9-20) mg/dL Creatinine (0.66-1.25) mg/dL Glucose (74-99) mg/dL POC Glucose (mg/dL) 133 H 166 H 185 H (70-110) mg/dL Calcium (8.4-10.2) mg/dL AST (17-59) U/L ALT (4-49) U/L Alkaline Phosphatase (38-126) U/L Total Protein (6.3-8.2) g/dL Albumin (3.5-5.0) g/dL 07/07/22 07/07/22 07/07/22 Range/Units 11:24 13:04 14:16 WBC (3.8-10.6) k/uL RBC (4.30-5.90) m/uL Hgb (13.0-17.5) gm/dL Hct (39.0-53.0) % Neutrophils # (1.3-7.7) k/uL Monocytes # (0-1.0) k/uL ABG pCO2 (35-45) mmHg ABG pO2 (83-108) mmHg ABG HCO3 (21-25) mmol/L ABG Total CO2 (19-24) mmol/L Sodium (137-145) mmol/L Chloride (98-107) mmol/L Carbon Dioxide (22-30) mmol/L BUN (9-20) mg/dL Creatinine (0.66-1.25) mg/dL Glucose (74-99) mg/dL POC Glucose (mg/dL) 159 H 114 H 111 H (70-110) mg/dL Calcium (8.4-10.2) mg/dL AST (17-59) U/L ALT (4-49) U/L Alkaline Phosphatase (38-126) U/L Total Protein (6.3-8.2) g/dL Albumin (3.5-5.0) g/dL 07/07/22 07/07/22 07/07/22 Range/Units 15:18 17:07 18:20 WBC (3.8-10.6) k/uL RBC (4.30-5.90) m/uL Hgb (13.0-17.5) gm/dL Hct (39.0-53.0) % Neutrophils # (1.3-7.7) k/uL Monocytes # (0-1.0) k/uL ABG pCO2 (35-45) mmHg ABG pO2 (83-108) mmHg ABG HCO3 (21-25) mmol/L ABG Total CO2 (19-24) mmol/L Sodium (137-145) mmol/L Chloride (98-107) mmol/L Carbon Dioxide (22-30) mmol/L BUN (9-20) mg/dL Creatinine (0.66-1.25) mg/dL Glucose (74-99) mg/dL POC Glucose (mg/dL) 118 H 168 H 180 H (70-110) mg/dL Calcium (8.4-10.2) mg/dL AST (17-59) U/L ALT (4-49) U/L Alkaline Phosphatase (38-126) U/L Total Protein (6.3-8.2) g/dL Albumin (3.5-5.0) g/dL 07/07/22 07/07/22 07/07/22 Range/Units 19:09 19:58 20:52 WBC (3.8-10.6) k/uL RBC (4.30-5.90) m/uL Hgb (13.0-17.5) gm/dL Hct (39.0-53.0) % Neutrophils # (1.3-7.7) k/uL Monocytes # (0-1.0) k/uL ABG pCO2 (35-45) mmHg ABG pO2 (83-108) mmHg ABG HCO3 (21-25) mmol/L ABG Total CO2 (19-24) mmol/L Sodium (137-145) mmol/L Chloride (98-107) mmol/L Carbon Dioxide (22-30) mmol/L BUN (9-20) mg/dL Creatinine (0.66-1.25) mg/dL Glucose (74-99) mg/dL POC Glucose (mg/dL) 167 H 192 H 188 H (70-110) mg/dL Calcium (8.4-10.2) mg/dL AST (17-59) U/L ALT (4-49) U/L Alkaline Phosphatase (38-126) U/L Total Protein (6.3-8.2) g/dL Albumin (3.5-5.0) g/dL 07/07/22 07/07/22 07/08/22 Range/Units 21:59 22:55 00:01 WBC (3.8-10.6) k/uL RBC (4.30-5.90) m/uL Hgb (13.0-17.5) gm/dL Hct (39.0-53.0) % Neutrophils # (1.3-7.7) k/uL Monocytes # (0-1.0) k/uL ABG pCO2 (35-45) mmHg ABG pO2 (83-108) mmHg ABG HCO3 (21-25) mmol/L ABG Total CO2 (19-24) mmol/L Sodium (137-145) mmol/L Chloride (98-107) mmol/L Carbon Dioxide (22-30) mmol/L BUN (9-20) mg/dL Creatinine (0.66-1.25) mg/dL Glucose (74-99) mg/dL POC Glucose (mg/dL) 178 H 154 H 134 H (70-110) mg/dL Calcium (8.4-10.2) mg/dL AST (17-59) U/L ALT (4-49) U/L Alkaline Phosphatase (38-126) U/L Total Protein (6.3-8.2) g/dL Albumin (3.5-5.0) g/dL 07/08/22 07/08/22 07/08/22 Range/Units 00:56 02:04 02:59 WBC (3.8-10.6) k/uL RBC (4.30-5.90) m/uL Hgb (13.0-17.5) gm/dL Hct (39.0-53.0) % Neutrophils # (1.3-7.7) k/uL Monocytes # (0-1.0) k/uL ABG pCO2 (35-45) mmHg ABG pO2 (83-108) mmHg ABG HCO3 (21-25) mmol/L ABG Total CO2 (19-24) mmol/L Sodium (137-145) mmol/L Chloride (98-107) mmol/L Carbon Dioxide (22-30) mmol/L BUN (9-20) mg/dL Creatinine (0.66-1.25) mg/dL Glucose (74-99) mg/dL POC Glucose (mg/dL) 135 H 167 H 189 H (70-110) mg/dL Calcium (8.4-10.2) mg/dL AST (17-59) U/L ALT (4-49) U/L Alkaline Phosphatase (38-126) U/L Total Protein (6.3-8.2) g/dL Albumin (3.5-5.0) g/dL 07/08/22 07/08/22 07/08/22 Range/Units 03:58 04:00 04:00 WBC 22.1 H (3.8-10.6) k/uL RBC 2.49 L (4.30-5.90) m/uL Hgb 7.8 L (13.0-17.5) gm/dL Hct 24.0 L (39.0-53.0) % Neutrophils # 18.9 H (1.3-7.7) k/uL Monocytes # 1.7 H (0-1.0) k/uL ABG pCO2 (35-45) mmHg ABG pO2 (83-108) mmHg ABG HCO3 (21-25) mmol/L ABG Total CO2 (19-24) mmol/L Sodium 131 L (137-145) mmol/L Chloride 87 L (98-107) mmol/L Carbon Dioxide 17 L (22-30) mmol/L BUN 93 H (9-20) mg/dL Creatinine 3.21 H (0.66-1.25) mg/dL Glucose 166 H (74-99) mg/dL POC Glucose (mg/dL) 191 H (70-110) mg/dL Calcium 6.3 L* (8.4-10.2) mg/dL AST 1370 H (17-59) U/L ALT 264 H (4-49) U/L Alkaline Phosphatase 204 H (38-126) U/L Total Protein 3.6 L (6.3-8.2) g/dL Albumin 1.6 L (3.5-5.0) g/dL 07/08/22 07/08/22 07/08/22 Range/Units 04:53 05:41 05:45 WBC (3.8-10.6) k/uL RBC (4.30-5.90) m/uL Hgb (13.0-17.5) gm/dL Hct (39.0-53.0) % Neutrophils # (1.3-7.7) k/uL Monocytes # (0-1.0) k/uL ABG pCO2 29 L (35-45) mmHg ABG pO2 82 L (83-108) mmHg ABG HCO3 17 L (21-25) mmol/L ABG Total CO2 18 L (19-24) mmol/L Sodium (137-145) mmol/L Chloride (98-107) mmol/L Carbon Dioxide (22-30) mmol/L BUN (9-20) mg/dL Creatinine (0.66-1.25) mg/dL Glucose (74-99) mg/dL POC Glucose (mg/dL) 203 H 195 H (70-110) mg/dL Calcium (8.4-10.2) mg/dL AST (17-59) U/L ALT (4-49) U/L Alkaline Phosphatase (38-126) U/L Total Protein (6.3-8.2) g/dL Albumin (3.5-5.0) g/dL 07/08/22 Range/Units 06:52 WBC (3.8-10.6) k/uL RBC (4.30-5.90) m/uL Hgb (13.0-17.5) gm/dL Hct (39.0-53.0) % Neutrophils # (1.3-7.7) k/uL Monocytes # (0-1.0) k/uL ABG pCO2 (35-45) mmHg ABG pO2 (83-108) mmHg ABG HCO3 (21-25) mmol/L ABG Total CO2 (19-24) mmol/L Sodium (137-145) mmol/L Chloride (98-107) mmol/L Carbon Dioxide (22-30) mmol/L BUN (9-20) mg/dL Creatinine (0.66-1.25) mg/dL Glucose (74-99) mg/dL POC Glucose (mg/dL) 183 H (70-110) mg/dL Calcium (8.4-10.2) mg/dL AST (17-59) U/L ALT (4-49) U/L Alkaline Phosphatase (38-126) U/L Total Protein (6.3-8.2) g/dL Albumin (3.5-5.0) g/dL Microbiology - Last 24 Hours (Table) 07/01/22 11:46 Blood Culture - Final Blood No Growth after 144 hours 07/05/22 20:41 Gram Stain - Preliminary Sputum Sputum Culture - Preliminary Presumptive Staph aureus 07/04/22 08:00 Blood Culture - Preliminary Blood No Growth after 72 hours 07/04/22 08:00 Blood Culture - Preliminary Blood No Growth after 72 hours
--- NOTE | 2022-07-08 07:20 | XR ---
EXAMINATION TYPE: XR chest 1V portable DATE OF EXAM: 07/08/2022 5:51 AM COMPARISON: Chest radiograph from one day prior. TECHNIQUE: XR chest 1V portable Portable AP radiograph of the chest. CLINICAL INDICATION:Male, 87 years old with history of Tube placement; FINDINGS: Lungs/Pleura: There is no evidence of focal consolidation, or pneumothorax. Wording of the left cos tophrenic angle. Pulmonary vascularity: Mild pulmonary vascular congestion. Heart/mediastinum: Cardiomediastinal silhouette is enlarged and stable. Musculoskeletal: No acute osseous pathology. Lines/Tubes: Endotracheal tube with distal tip 7.8 cm above the patrice Nasogastric tube with its distal tip and side-port projecting under the diaphragm. IMPRESSION: * High position of endotracheal tube consider advancement of 5 cm for optimal placement. * Appropriate placement of nasogastric tube. * Scattered airspace opacities with blunting left costophrenic angle suggestive of pleural effusions . Correlate with BNP for congestive heart failure.
[2022-07-08 08:05] LABS: Glucose,Whole Blood 166 mg/dL (70-110)
[2022-07-08] MEDS: polyethylene glycoL 3350 17 GM POWD.PACK PO SCH (08:53)
[2022-07-08] MEDS: SENNOSIDES 8.6 MG TAB PO SCH (08:54)
[2022-07-08] MEDS ORDERED: VANCOMYCIN 1,000 MG in SODIUM CHLORIDE 0.9% 250 ML IVPB ONE (09:00)
[2022-07-08] MEDS ORDERED: CALCIUM CARBONATE LIQUID 500 MG/5 ML CUP OG-TUBE SCH (09:00)
[2022-07-08 09:18] LABS: Glucose,Whole Blood 152 mg/dL (70-110)
[2022-07-08] MEDS: ASPIRIN 81 MG PO SCH (09:18)
[2022-07-08] MEDS: TAMSULOSIN 0.4 MG CAP.ER.24H PO SCH (09:19)
[2022-07-08] MEDS: GABAPENTIN 100 MG CAP PO SCH (09:19)
[2022-07-08] MEDS: ENOXAPARIN 30 MG/0.3 ML SYRINGE SQ SCH (09:19)
[2022-07-08] MEDS: CHLORHEXIDINE GLUCONATE 15 ML CUP MUCOUS MEM SCH (09:19)
--- NOTE | 2022-07-08 10:10 | P.PN ---
Subjective Progress Note Date: 07/08/22 CHIEF COMPLAINT: Malnutrition HISTORY OF PRESENT ILLNESS: Patient remains in the ICU on mechanical ventil ation. Remains on vasopressin and norepinephrine. Patient is status post PEG tube placement on 06/30/22. Patient did have bowel movement. Patient has multiorgan failure. Currently afebrile. Did have low-grade temps yesterday. WBC of a 22.1 hemoglobin 7.8 platelets 151 sodium is 131 potassium is 4.5 creatinine is up at 3.21. Patient is not making any urine. Patient seen and examined with Dr. holland PHYSICAL EXAM: VITAL SIGNS: Reviewed. GENERAL: no acute distress. ABDOMEN: Soft. Distended. Evidence of generalized edema. PEG tube site clean dry and intact ASSESSMENT: 1. Moderate protein calorie malnutrition status post PEG tube placement 2. Failed swallow evaluation 3. Dysphagia 4. 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 Parkinson's disease 6. Sepsis PLAN: -Continue ICU management -Continue tube feeds -Continue supportive care -Overall prognosis poor Physician [employer] Supervisor note has been reviewed by physician. Signing provider agrees with the documented findings, assessment, and plan of care. Objective - Vital Signs Vital signs: Vital Signs Temp 98.0 F 07/08/22 08:00 Pulse 63 07/08/22 08:00 Resp 23 07/08/22 08:00 BP 109/43 07/08/22 08:00 Pulse Ox 93 L 07/08/22 08:00 FiO2 100 07/08/22 08:21 Intake & Output 07/07/22 07/08/22 07/08/22 18:59 06:59 18:59 Intake Total 2843.839 3688.568 316.256 Output Total 0 20 0 Balance 2843.839 3668.568 316.256 Weight 78.6 kg Intake: IV 1683 1989 173 .9NS Pressure Line 33 39 3 0.9 20 Dextrose 5% in Water 1, 1650 1950 150 000 ml @ 150 mls/hr IV . Q7H40M SHANELL with Sodium Bicarb (1 Meq/ml) 150 ml Rx#:[id number] Intake, IV Titration 204.482 1344.568 68.256 Amount Amiodarone 360 mg In 200 Dextrose 5% in Water 200 ml @ 1 MG/MIN 33.333 mls/ hr IV .Q6H ONE Rx#: [id number] Insulin Regular 100 unit 22.1 34.043 6.417 In Sodium Chloride 0.9% 100 ml @ Titrate IV .Q0M SHANELL Rx#:[id number] Norepinephrine 8 mg In 467.304 644.563 61.839 Sodium Chloride 0.9% 250 ml @ 0.03 MCG/KG/MIN 3. 425 mls/hr IV .Q24H SHANELL Rx#:[id number] Vasopressin 60 unit In 145.962 Sodium Chloride 0.9% 150 ml @ 0.03 UNITS/MIN 4.59 mls/hr IV .Q24H SHANELL Rx#: [id number] propofoL 1,000 mg In 86.435 Empty Bag 1 bag @ 15 MCG/ KG/MIN 5.31 mls/hr IV . [id number] SHANELL Rx#:[id number] Tube Feeding 495 585 45 Other 90 90 30 Output: Urine 0 20 0 Other: Voiding Method Indwelling Catheter Indwelling Catheter # Bowel Movements 1 1 ABP, PAP, CO, CI - Last Documented Arterial Blood Pressure 122/42 - Labs CBC & Chem 7: 07/08/22 04:00 07/08/22 04:00 Labs: Abnormal Lab Results - Last 24 Hours (Table) 07/07/22 07/07/22 07/07/22 Range/Units 09:18 10:27 11:24 WBC (3.8-10.6) k/uL RBC (4.30-5.90) m/uL Hgb (13.0-17.5) gm/dL Hct (39.0-53.0) % Neutrophils # (1.3-7.7) k/uL Monocytes # (0-1.0) k/uL ABG pCO2 (35-45) mmHg ABG pO2 (83-108) mmHg ABG HCO3 (21-25) mmol/L ABG Total CO2 (19-24) mmol/L Sodium (137-145) mmol/L Chloride (98-107) mmol/L Carbon Dioxide (22-30) mmol/L BUN (9-20) mg/dL Creatinine (0.66-1.25) mg/dL Glucose (74-99) mg/dL POC Glucose (mg/dL) 166 H 185 H 159 H (70-110) mg/dL Calcium (8.4-10.2) mg/dL AST (17-59) U/L ALT (4-49) U/L Alkaline Phosphatase (38-126) U/L Total Protein (6.3-8.2) g/dL Albumin (3.5-5.0) g/dL 07/07/22 07/07/22 07/07/22 Range/Units 13:04 14:16 15:18 WBC (3.8-10.6) k/uL RBC (4.30-5.90) m/uL Hgb (13.0-17.5) gm/dL Hct (39.0-53.0) % Neutrophils # (1.3-7.7) k/uL Monocytes # (0-1.0) k/uL ABG pCO2 (35-45) mmHg ABG pO2 (83-108) mmHg ABG HCO3 (21-25) mmol/L ABG Total CO2 (19-24) mmol/L Sodium (137-145) mmol/L Chloride (98-107) mmol/L Carbon Dioxide (22-30) mmol/L BUN (9-20) mg/dL Creatinine (0.66-1.25) mg/dL Glucose (74-99) mg/dL POC Glucose (mg/dL) 114 H 111 H 118 H (70-110) mg/dL Calcium (8.4-10.2) mg/dL AST (17-59) U/L ALT (4-49) U/L Alkaline Phosphatase (38-126) U/L Total Protein (6.3-8.2) g/dL Albumin (3.5-5.0) g/dL 07/07/22 07/07/22 07/07/22 Range/Units 17:07 18:20 19:09 WBC (3.8-10.6) k/uL RBC (4.30-5.90) m/uL Hgb (13.0-17.5) gm/dL Hct (39.0-53.0) % Neutrophils # (1.3-7.7) k/uL Monocytes # (0-1.0) k/uL ABG pCO2 (35-45) mmHg ABG pO2 (83-108) mmHg ABG HCO3 (21-25) mmol/L ABG Total CO2 (19-24) mmol/L Sodium (137-145) mmol/L Chloride (98-107) mmol/L Carbon Dioxide (22-30) mmol/L BUN (9-20) mg/dL Creatinine (0.66-1.25) mg/dL Glucose (74-99) mg/dL POC Glucose (mg/dL) 168 H 180 H 167 H (70-110) mg/dL Calcium (8.4-10.2) mg/dL AST (17-59) U/L ALT (4-49) U/L Alkaline Phosphatase (38-126) U/L Total Protein (6.3-8.2) g/dL Albumin (3.5-5.0) g/dL 07/07/22 07/07/22 07/07/22 Range/Units 19:58 20:52 21:59 WBC (3.8-10.6) k/uL RBC (4.30-5.90) m/uL Hgb (13.0-17.5) gm/dL Hct (39.0-53.0) % Neutrophils # (1.3-7.7) k/uL Monocytes # (0-1.0) k/uL ABG pCO2 (35-45) mmHg ABG pO2 (83-108) mmHg ABG HCO3 (21-25) mmol/L ABG Total CO2 (19-24) mmol/L Sodium (137-145) mmol/L Chloride (98-107) mmol/L Carbon Dioxide (22-30) mmol/L BUN (9-20) mg/dL Creatinine (0.66-1.25) mg/dL Glucose (74-99) mg/dL POC Glucose (mg/dL) 192 H 188 H 178 H (70-110) mg/dL Calcium (8.4-10.2) mg/dL AST (17-59) U/L ALT (4-49) U/L Alkaline Phosphatase (38-126) U/L Total Protein (6.3-8.2) g/dL Albumin (3.5-5.0) g/dL 07/07/22 07/08/22 07/08/22 Range/Units 22:55 00:01 00:56 WBC (3.8-10.6) k/uL RBC (4.30-5.90) m/uL Hgb (13.0-17.5) gm/dL Hct (39.0-53.0) % Neutrophils # (1.3-7.7) k/uL Monocytes # (0-1.0) k/uL ABG pCO2 (35-45) mmHg ABG pO2 (83-108) mmHg ABG HCO3 (21-25) mmol/L ABG Total CO2 (19-24) mmol/L Sodium (137-145) mmol/L Chloride (98-107) mmol/L Carbon Dioxide (22-30) mmol/L BUN (9-20) mg/dL Creatinine (0.66-1.25) mg/dL Glucose (74-99) mg/dL POC Glucose (mg/dL) 154 H 134 H 135 H (70-110) mg/dL Calcium (8.4-10.2) mg/dL AST (17-59) U/L ALT (4-49) U/L Alkaline Phosphatase (38-126) U/L Total Protein (6.3-8.2) g/dL Albumin (3.5-5.0) g/dL 07/08/22 07/08/22 07/08/22 Range/Units 02:04 02:59 03:58 WBC (3.8-10.6) k/uL RBC (4.30-5.90) m/uL Hgb (13.0-17.5) gm/dL Hct (39.0-53.0) % Neutrophils # (1.3-7.7) k/uL Monocytes # (0-1.0) k/uL ABG pCO2 (35-45) mmHg ABG pO2 (83-108) mmHg ABG HCO3 (21-25) mmol/L ABG Total CO2 (19-24) mmol/L Sodium (137-145) mmol/L Chloride (98-107) mmol/L Carbon Dioxide (22-30) mmol/L BUN (9-20) mg/dL Creatinine (0.66-1.25) mg/dL Glucose (74-99) mg/dL POC Glucose (mg/dL) 167 H 189 H 191 H (70-110) mg/dL Calcium (8.4-10.2) mg/dL AST (17-59) U/L ALT (4-49) U/L Alkaline Phosphatase (38-126) U/L Total Protein (6.3-8.2) g/dL Albumin (3.5-5.0) g/dL 07/08/22 07/08/22 07/08/22 Range/Units 04:00 04:00 04:53 WBC 22.1 H (3.8-10.6) k/uL RBC 2.49 L (4.30-5.90) m/uL Hgb 7.8 L (13.0-17.5) gm/dL Hct 24.0 L (39.0-53.0) % Neutrophils # 18.9 H (1.3-7.7) k/uL Monocytes # 1.7 H (0-1.0) k/uL ABG pCO2 (35-45) mmHg ABG pO2 (83-108) mmHg ABG HCO3 (21-25) mmol/L ABG Total CO2 (19-24) mmol/L Sodium 131 L (137-145) mmol/L Chloride 87 L (98-107) mmol/L Carbon Dioxide 17 L (22-30) mmol/L BUN 93 H (9-20) mg/dL Creatinine 3.21 H (0.66-1.25) mg/dL Glucose 166 H (74-99) mg/dL POC Glucose (mg/dL) 203 H (70-110) mg/dL Calcium 6.3 L* (8.4-10.2) mg/dL AST 1370 H (17-59) U/L ALT 264 H (4-49) U/L Alkaline Phosphatase 204 H (38-126) U/L Total Protein 3.6 L (6.3-8.2) g/dL Albumin 1.6 L (3.5-5.0) g/dL 07/08/22 07/08/22 07/08/22 Range/Units 05:41 05:45 06:52 WBC (3.8-10.6) k/uL RBC (4.30-5.90) m/uL Hgb (13.0-17.5) gm/dL Hct (39.0-53.0) % Neutrophils # (1.3-7.7) k/uL Monocytes # (0-1.0) k/uL ABG pCO2 29 L (35-45) mmHg ABG pO2 82 L (83-108) mmHg ABG HCO3 17 L (21-25) mmol/L ABG Total CO2 18 L (19-24) mmol/L Sodium (137-145) mmol/L Chloride (98-107) mmol/L Carbon Dioxide (22-30) mmol/L BUN (9-20) mg/dL Creatinine (0.66-1.25) mg/dL Glucose (74-99) mg/dL POC Glucose (mg/dL) 195 H 183 H (70-110) mg/dL Calcium (8.4-10.2) mg/dL AST (17-59) U/L ALT (4-49) U/L Alkaline Phosphatase (38-126) U/L Total Protein (6.3-8.2) g/dL Albumin (3.5-5.0) g/dL 07/08/22 Range/Units 08:03 WBC (3.8-10.6) k/uL RBC (4.30-5.90) m/uL Hgb (13.0-17.5) gm/dL Hct (39.0-53.0) % Neutrophils # (1.3-7.7) k/uL Monocytes # (0-1.0) k/uL ABG pCO2 (35-45) mmHg ABG pO2 (83-108) mmHg ABG HCO3 (21-25) mmol/L ABG Total CO2 (19-24) mmol/L Sodium (137-145) mmol/L Chloride (98-107) mmol/L Carbon Dioxide (22-30) mmol/L BUN (9-20) mg/dL Creatinine (0.66-1.25) mg/dL Glucose (74-99) mg/dL POC Glucose (mg/dL) 166 H (70-110) mg/dL Calcium (8.4-10.2) mg/dL AST (17-59) U/L ALT (4-49) U/L Alkaline Phosphatase (38-126) U/L Total Protein (6.3-8.2) g/dL Albumin (3.5-5.0) g/dL Microbiology - Last 24 Hours (Table) 07/01/22 11:46 Blood Culture - Final Blood No Growth after 144 hours 07/05/22 20:41 Gram Stain - Preliminary Sputum Sputum Culture - Preliminary Presumptive Staph aureus 07/04/22 08:00 Blood Culture - Preliminary Blood No Growth after 72 hours 07/04/22 08:00 Blood Culture - Preliminary Blood No Growth after 72 hours
[2022-07-08 10:13] LABS: Glucose,Whole Blood 164 mg/dL (70-110)
--- NOTE | 2022-07-08 10:36 | P.PN ---
Subjective Progress Note Date: 07/08/22 Principal diagnosis: Respiratory failure. 87-year-old male patient, transferred to the intensive care unit, unresponsive, on 100% nonrebreather facemask, labored breathing, using a cystoscopy, the breathing, currently in A. fib with RVR and hemodynamically unstable with a blood pressure of 70/54. This was an emergency consult as the patient got acutely L and the patient got transferred to the intensive care unit. I talked to the primary care team. 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 The patient's condition is progressively getting worse and he did aspirate and his chest x-ray revealed extensive left lower lobe consolidation limited left lower lobe pulmonary infiltrate. This probably facilitated his respiratory failure. Discussions with the family was done and the son was adamant on keeping in focal status and he wanted everything to be done for his father. For that reason, the patient got transferred to the ICU and we went to proceed with intubation mechanical ventilation. He is also on fluids and is going to be started on pressors. He has a Edward catheter in place. Urine output is almost negligible at this point in time. No urine is being seen in the Edward bag. The patient was seen by oncology during this current admission. Based on his very poor functional status, no further treatment was recommended this point in time. His nutritional status extremely poor. He looks extremely emaciated and weak and debilitated at this point in time. No labs from this morning. The most recent labs from yesterday shows a white cell count of 7.5 with hemoglobin of 8.3 and platelet count of 173. His sodium is at 138, the patient is an acute kidney injury with a BUN of 72 and a creatinine of 1.3 and sodium level is 138. IV fluids currently are no form of normal saline bolus. He is also on amiodarone drip at 1 mg an hour in regards to this atrial fibrillation with RVR. The blood sugars at 262 this morning. His lactic acid level is up to 8. He is on IV Zosyn. He is on Lovenox 40 mg subcu for DVT prophylaxis. He is unresponsive. Barely withdraws to painful stimulation. On today's evaluation of 2021, the patient is intubated, remains sedated on propofol which is running at a rate of 10 mcg/kg/m. Intubated on a mechanical ventilator. He is on assist-control mode at a rate of 26, tidal volume of 450, FiO2 of 50% with a PEEP of 5. His blood gas from today shows a pH of 7.38 with a pCO2 of 34 and pO2 of 86. Chest x-ray showing extensive consolidation of the left lower lobe consistent with pneumonia and the patient is currently on a combination of Zosyn and vancomycin. At the same time, the patient is septic, hypotensive, he was aggressively resuscitated IV fluids. He was placed on a bicarbonate infusion. He was given additional bicarb doses yesterday. His pressors were modified and currently is on norepinephrine running at a dose of 0.17 mcg/kg/m and he is also on physiologic dose of vasopressin. He remained nature fibrillation with rapid response. His heart is the 140 range. He remains on amiodarone at a dose of 1 mg/m. Most recent BP is 97/57. Urine output is in order of less than 5 mL an hour. At the same time, the patient has developed an acute kidney injury. Creatinine is stable compared to yesterday. BUN is 85 and a creatinine of 2.2. Sodium is at 138. Serum bicarb is up to 19. Sodium is at 138. The white cell count today's of 8.7 with a hemoglobin of 8.2 and a platelet count of 143. Cultures are still negative for now. Sputum and blood culture were sent yesterday. NG tube in place. Enteral feeding is in the form of Nepro at a rate of 45 mL an hour which is currently at goal. In terms of anticoagulation, we opted not to give him full dose anticoagulants and we're currently giving him Lovenox portably prophylaxis at a dose of 30 mg subcu on a daily basis. He was started on insulin drip for blood tighter blood sugar control which is currently running at a dose of 19 units an hour. In terms of his lactic acid level, the level is up to 10.0 from yesterday morning and reasonable to repeat another level at this point in time. His pro calcitonin level is at 9.92, quite elevated. The patient has developed a shock liver, the Francois is at 1.4, AST is 4668 Progress note dated 07/07/2022. This is a 87-year-old male who was admitted on June 24 for dehydration, low sodium, and pneumonia. He entered the ICU on July 05, and was intubated on the same day. He remains on mechanical ventilator. He is on volume assist control, rate 26, tidal volume 450, FiO2 50%, and PEEP of 5. Blood gases show pO2 101, pCO2 of 31, and a pH is 7.44. Currently, he is on propofol at 10 mcg/kg/m, D5W with 3 ampules of sodium bicarbonate at 150 mL an hour, vasopressin at 0.04 units per minute, norepinephrine at 37 mcg/m, amiodarone at 1 mg/m, insulin, currently on hold, saline at 10 mL an hour, and tube feedings with Nepro at 45 mL an hour, which is goal. He continues on Zosyn and vancomycin. White count 17, hemoglobin 8.4, hematocrit 25.1, and platelet count 281,000. Sodium 133, potassium 4.8, chlorides 93, CO2 20, anion gap 20, BUN 93, and creatinine 2.54. AST is 3155, and ALT is 166. Pro-calcitonin level is 9.92. Cultures are thus far negative. Progress note dated 07/08/2022. 87-year-old male, seen again in the intensive care unit, room 254. He remains on the mechanical ventilator. He is on the volume assist control, rate 26, tidal volume 450, FiO2 100%, and a PEEP of 5. The patient was increased to 100% because saturations were low. Blood gases on 70% earlier in the morning, show pO2 of 82, pCO2 of 29, and pH 7.38. Currently, the patient's on norepinephrine at 0.38 mcg/kg/m, vasopressin at 0.04 units per minute, amiodarone at 1 mg/m, saline at 20 mL an hour, propofol at 10 mcg/kg/m, D5W 3 ampules of sodium bicarbonate at 150 mL an hour, insulin at 5.5 units an hour, and Nepro at 45 mL an hour, which is goal. The patient remains on vancomycin and Zosyn. White count 22.1, hemoglobin 7.8, hematocrit 24, and platelet count 251,000. Sodium 131, potassium 4.5, chloride 87, CO2 17, anion gap is 27, BUN is up to 93 with a creatinine of 3.21. The patient's calcium is 6.3. AST is 1370. ALT is 264. The sputum from July 05 of showing presumptive staph aureus. The chest x-ray shows fused bilateral infiltrates, and small pleural effusions. There may be a component of fluid overload. The NG tube is in good position. The endotracheal tube needs to be pushed down. Objective - Vital Signs Vital signs: Vital Signs Temp 98.0 F 07/08/22 08:00 Pulse 64 07/08/22 10:00 Resp 20 07/08/22 10:00 BP 109/43 07/08/22 10:00 Pulse Ox 97 07/08/22 10:00 FiO2 90 07/08/22 10:00 Intake & Output 07/07/22 07/08/22 07/08/22 18:59 06:59 18:59 Intake Total 2843.839 3688.568 1092.040 Output Total 0 20 0 Balance 2843.839 3668.568 1092.040 Weight 78.6 kg Intake: IV 1683 1989 499 .9NS Pressure Line 33 39 9 0.9 40 Dextrose 5% in Water 1, 1650 1950 450 000 ml @ 150 mls/hr IV . Q7H40M SHANELL with Sodium Bicarb (1 Meq/ml) 150 ml Rx#:[id number] Intake, IV Titration 459.957 0136.568 378.040 Amount Amiodarone 360 mg In 200 Dextrose 5% in Water 200 ml @ 1 MG/MIN 33.333 mls/ hr IV .Q6H ONE Rx#: [id number] Insulin Regular 100 unit 22.1 34.043 18.151 In Sodium Chloride 0.9% 100 ml @ Titrate IV .Q0M SHANELL Rx#:[id number] Norepinephrine 8 mg In 467.304 644.563 109.889 Sodium Chloride 0.9% 250 ml @ 0.03 MCG/KG/MIN 3. 425 mls/hr IV .Q24H SHANELL Rx#:[id number] Vancomycin 1,000 mg In 250 Sodium Chloride 0.9% 250 ml @ 125 mls/hr IVPB ONCE ONE Rx#:[id number] Vasopressin 60 unit In 145.962 Sodium Chloride 0.9% 150 ml @ 0.03 UNITS/MIN 4.59 mls/hr IV .Q24H SHANELL Rx#: [id number] propofoL 1,000 mg In 86.435 Empty Bag 1 bag @ 15 MCG/ KG/MIN 5.31 mls/hr IV . [id number] SHANELL Rx#:[id number] Tube Feeding 495 585 135 Other 90 90 80 Output: Urine 0 20 0 Other: Voiding Method Indwelling Catheter Indwelling Catheter # Voids 0 # Bowel Movements 1 1 ABP, PAP, CO, CI - Last Documented Arterial Blood Pressure 133/42 - Exam No acute distress, sedated, with an orally placed endotracheal tube and NG tube. HEENT examination is grossly unremarkable. Neck supple. Full range of motion. No adenopathy thyromegaly or neck vein distention. Cardiovascular examination reveals regular rhythm rate. S1-S2 normal. No S3 or S4. No discernible murmur noted. Heart sounds are distant. Heart rate 64 bpm. Lungs reveal scattered bilateral rhonchi. Breath sounds are diminished throug hout. Breath sounds are equal bilaterally. No wheezes. Saturations while on the ventilator are 97 %.. Abdomen soft, with bowel sounds. No masses. Extremities are intact. Mild acrocyanosis. Mild trace edema. No clubbing. Skin reveals diffuse bilateral ecchymoses. Neurologic examination cannot be adequately assessed. - Labs CBC & Chem 7: 07/08/22 04:00 07/08/22 04:00 Labs: Abnormal Lab Results - Last 24 Hours (Table) 07/07/22 07/07/22 07/07/22 Range/Units 10:27 11:24 13:04 WBC (3.8-10.6) k/uL RBC (4.30-5.90) m/uL Hgb (13.0-17.5) gm/dL Hct (39.0-53.0) % Neutrophils # (1.3-7.7) k/uL Monocytes # (0-1.0) k/uL ABG pCO2 (35-45) mmHg ABG pO2 (83-108) mmHg ABG HCO3 (21-25) mmol/L ABG Total CO2 (19-24) mmol/L Sodium (137-145) mmol/L Chloride (98-107) mmol/L Carbon Dioxide (22-30) mmol/L BUN (9-20) mg/dL Creatinine (0.66-1.25) mg/dL Glucose (74-99) mg/dL POC Glucose (mg/dL) 185 H 159 H 114 H (70-110) mg/dL Calcium (8.4-10.2) mg/dL AST (17-59) U/L ALT (4-49) U/L Alkaline Phosphatase (38-126) U/L Total Protein (6.3-8.2) g/dL Albumin (3.5-5.0) g/dL 07/07/22 07/07/22 07/07/22 Range/Units 14:16 15:18 17:07 WBC (3.8-10.6) k/uL RBC (4.30-5.90) m/uL Hgb (13.0-17.5) gm/dL Hct (39.0-53.0) % Neutrophils # (1.3-7.7) k/uL Monocytes # (0-1.0) k/uL ABG pCO2 (35-45) mmHg ABG pO2 (83-108) mmHg ABG HCO3 (21-25) mmol/L ABG Total CO2 (19-24) mmol/L Sodium (137-145) mmol/L Chloride (98-107) mmol/L Carbon Dioxide (22-30) mmol/L BUN (9-20) mg/dL Creatinine (0.66-1.25) mg/dL Glucose (74-99) mg/dL POC Glucose (mg/dL) 111 H 118 H 168 H (70-110) mg/dL Calcium (8.4-10.2) mg/dL AST (17-59) U/L ALT (4-49) U/L Alkaline Phosphatase (38-126) U/L Total Protein (6.3-8.2) g/dL Albumin (3.5-5.0) g/dL 07/07/22 07/07/22 07/07/22 Range/Units 18:20 19:09 19:58 WBC (3.8-10.6) k/uL RBC (4.30-5.90) m/uL Hgb (13.0-17.5) gm/dL Hct (39.0-53.0) % Neutrophils # (1.3-7.7) k/uL Monocytes # (0-1.0) k/uL ABG pCO2 (35-45) mmHg ABG pO2 (83-108) mmHg ABG HCO3 (21-25) mmol/L ABG Total CO2 (19-24) mmol/L Sodium (137-145) mmol/L Chloride (98-107) mmol/L Carbon Dioxide (22-30) mmol/L BUN (9-20) mg/dL Creatinine (0.66-1.25) mg/dL Glucose (74-99) mg/dL POC Glucose (mg/dL) 180 H 167 H 192 H (70-110) mg/dL Calcium (8.4-10.2) mg/dL AST (17-59) U/L ALT (4-49) U/L Alkaline Phosphatase (38-126) U/L Total Protein (6.3-8.2) g/dL Albumin (3.5-5.0) g/dL 07/07/22 07/07/22 07/07/22 Range/Units 20:52 21:59 22:55 WBC (3.8-10.6) k/uL RBC (4.30-5.90) m/uL Hgb (13.0-17.5) gm/dL Hct (39.0-53.0) % Neutrophils # (1.3-7.7) k/uL Monocytes # (0-1.0) k/uL ABG pCO2 (35-45) mmHg ABG pO2 (83-108) mmHg ABG HCO3 (21-25) mmol/L ABG Total CO2 (19-24) mmol/L Sodium (137-145) mmol/L Chloride (98-107) mmol/L Carbon Dioxide (22-30) mmol/L BUN (9-20) mg/dL Creatinine (0.66-1.25) mg/dL Glucose (74-99) mg/dL POC Glucose (mg/dL) 188 H 178 H 154 H (70-110) mg/dL Calcium (8.4-10.2) mg/dL AST (17-59) U/L ALT (4-49) U/L Alkaline Phosphatase (38-126) U/L Total Protein (6.3-8.2) g/dL Albumin (3.5-5.0) g/dL 07/08/22 07/08/22 07/08/22 Range/Units 00:01 00:56 02:04 WBC (3.8-10.6) k/uL RBC (4.30-5.90) m/uL Hgb (13.0-17.5) gm/dL Hct (39.0-53.0) % Neutrophils # (1.3-7.7) k/uL Monocytes # (0-1.0) k/uL ABG pCO2 (35-45) mmHg ABG pO2 (83-108) mmHg ABG HCO3 (21-25) mmol/L ABG Total CO2 (19-24) mmol/L Sodium (137-145) mmol/L Chloride (98-107) mmol/L Carbon Dioxide (22-30) mmol/L BUN (9-20) mg/dL Creatinine (0.66-1.25) mg/dL Glucose (74-99) mg/dL POC Glucose (mg/dL) 134 H 135 H 167 H (70-110) mg/dL Calcium (8.4-10.2) mg/dL AST (17-59) U/L ALT (4-49) U/L Alkaline Phosphatase (38-126) U/L Total Protein (6.3-8.2) g/dL Albumin (3.5-5.0) g/dL 07/08/22 07/08/22 07/08/22 Range/Units 02:59 03:58 04:00 WBC (3.8-10.6) k/uL RBC (4.30-5.90) m/uL Hgb (13.0-17.5) gm/dL Hct (39.0-53.0) % Neutrophils # (1.3-7.7) k/uL Monocytes # (0-1.0) k/uL ABG pCO2 (35-45) mmHg ABG pO2 (83-108) mmHg ABG HCO3 (21-25) mmol/L ABG Total CO2 (19-24) mmol/L Sodium 131 L (137-145) mmol/L Chloride 87 L (98-107) mmol/L Carbon Dioxide 17 L (22-30) mmol/L BUN 93 H (9-20) mg/dL Creatinine 3.21 H (0.66-1.25) mg/dL Glucose 166 H (74-99) mg/dL POC Glucose (mg/dL) 189 H 191 H (70-110) mg/dL Calcium 6.3 L* (8.4-10.2) mg/dL AST 1370 H (17-59) U/L ALT 264 H (4-49) U/L Alkaline Phosphatase 204 H (38-126) U/L Total Protein 3.6 L (6.3-8.2) g/dL Albumin 1.6 L (3.5-5.0) g/dL 07/08/22 07/08/22 07/08/22 Range/Units 04:00 04:53 05:41 WBC 22.1 H (3.8-10.6) k/uL RBC 2.49 L (4.30-5.90) m/uL Hgb 7.8 L (13.0-17.5) gm/dL Hct 24.0 L (39.0-53.0) % Neutrophils # 18.9 H (1.3-7.7) k/uL Monocytes # 1.7 H (0-1.0) k/uL ABG pCO2 29 L (35-45) mmHg ABG pO2 82 L (83-108) mmHg ABG HCO3 17 L (21-25) mmol/L ABG Total CO2 18 L (19-24) mmol/L Sodium (137-145) mmol/L Chloride (98-107) mmol/L Carbon Dioxide (22-30) mmol/L BUN (9-20) mg/dL Creatinine (0.66-1.25) mg/dL Glucose (74-99) mg/dL POC Glucose (mg/dL) 203 H (70-110) mg/dL Calcium (8.4-10.2) mg/dL AST (17-59) U/L ALT (4-49) U/L Alkaline Phosphatase (38-126) U/L Total Protein (6.3-8.2) g/dL Albumin (3.5-5.0) g/dL 07/08/22 07/08/22 07/08/22 Range/Units 05:45 06:52 08:03 WBC (3.8-10.6) k/uL RBC (4.30-5.90) m/uL Hgb (13.0-17.5) gm/dL Hct (39.0-53.0) % Neutrophils # (1.3-7.7) k/uL Monocytes # (0-1.0) k/uL ABG pCO2 (35-45) mmHg ABG pO2 (83-108) mmHg ABG HCO3 (21-25) mmol/L ABG Total CO2 (19-24) mmol/L Sodium (137-145) mmol/L Chloride (98-107) mmol/L Carbon Dioxide (22-30) mmol/L BUN (9-20) mg/dL Creatinine (0.66-1.25) mg/dL Glucose (74-99) mg/dL POC Glucose (mg/dL) 195 H 183 H 166 H (70-110) mg/dL Calcium (8.4-10.2) mg/dL AST (17-59) U/L ALT (4-49) U/L Alkaline Phosphatase (38-126) U/L Total Protein (6.3-8.2) g/dL Albumin (3.5-5.0) g/dL 07/08/22 07/08/22 Range/Units 09:16 10:11 WBC (3.8-10.6) k/uL RBC (4.30-5.90) m/uL Hgb (13.0-17.5) gm/dL Hct (39.0-53.0) % Neutrophils # (1.3-7.7) k/uL Monocytes # (0-1.0) k/uL ABG pCO2 (35-45) mmHg ABG pO2 (83-108) mmHg ABG HCO3 (21-25) mmol/L ABG Total CO2 (19-24) mmol/L Sodium (137-145) mmol/L Chloride (98-107) mmol/L Carbon Dioxide (22-30) mmol/L BUN (9-20) mg/dL Creatinine (0.66-1.25) mg/dL Glucose (74-99) mg/dL POC Glucose (mg/dL) 152 H 164 H (70-110) mg/dL Calcium (8.4-10.2) mg/dL AST (17-59) U/L ALT (4-49) U/L Alkaline Phosphatase (38-126) U/L Total Protein (6.3-8.2) g/dL Albumin (3.5-5.0) g/dL Microbiology - Last 24 Hours (Table) 07/04/22 08:00 Blood Culture - Preliminary Blood No Growth after 96 hours 07/04/22 08:00 Blood Culture - Preliminary Blood No Growth after 96 hours 07/01/22 11:46 Blood Culture - Final Blood No Growth after 144 hours 07/05/22 20:41 Gram Stain - Preliminary Sputum Sputum Culture - Preliminary Presumptive Staph aureus Assessment and Plan Assessment: Acute hypoxemic respiratory failure with bilateral lower lobe infiltrates, and extensive consolidation, left lower lobe. Status post intubation and mechanical ventilation for respiratory failure, 07/05/2022. Acute hypotension, likely related to underlying sepsis. Anion gap metabolic acidosis, secondary to lactic acidemia. Mental status changes, secondary to metabolic and septic encephalopathy. Acute kidney injury, likely related to ATN. Chronic anemia. History of Parkinson's disease. Sacral decubitus ulcers. Severe protein/calorie malnutrition. Atrial fibrillation with RVR. Stage IV prostate cancer, with skeletal metastasis. CAD. Type 2 diabetes. Mild to moderate left ventricular systolic dysfunction. Multiorgan system failure. Plan: Plan dated 07/07/2022. The patient continues on Zosyn and vancomycin. No changes in the mechanical ventilator. The patient remains on propofol, sodium bicarbonate drip, vasopressin, norepinephrine, amiodarone, insulin, and tube feeds. Labs, x-rays, and medications are all reviewed. Overall prognosis remains very poor. It's very likely this patient was not survive this illness. We will continue to follow make recommendations along the way. Plan dated 07/08/2022. The patient's labs, x-rays, and medications are reviewed. The patient remains on vancomycin and Zosyn. The patient is getting tube feedings at goal. Ventilator settings are appropriate. We'll continue to wean down the FiO2 as long as his saturations are acceptable. The patient remains on a number drips including norepinephrine, vasopressin, amiodarone, propofol, and a sodium bicarbonate drip, as well as an insulin drip. I will continue to follow and make recommendations along the way. Prognosis is very poor. I do long conversation with his daughter, Caprice. She basically stated that her brother was making all the medical decisions for their father. I did explain to her that the patient has developed multi-organ system failure and will not survive this illness. She again did not want to make any decisions about CODE STATUS, or withdrawal of life support. Time with Patient: Greater than 30
--- NOTE | 2022-07-08 10:45 | P.PN ---
Subjective Patient is seen for follow-up for hyponatremia and acute kidney injury Patient was transferred to the ICU . He initially developed A. fib with RVR and hypotension. He was noted to have agonal breathing and was subsequently intubated. Currently patient is maintained on amiodarone drip. He is maintained on high-dose pressors. Urine output has dropped off to 0 to 5 mL an hour Maintained on tube feedings FiO2 increased to 90% currently No active bleeding noted. Serum creatinine increased to 3.2 today. Potassium is at 4. 5 Maintained on bicarb drip On max dose off pressors No urine output. No response to IV Lasix Objective - Vital Signs Vital signs: Vital Signs Temp 98.0 F 07/08/22 08:00 Pulse 64 07/08/22 10:00 Resp 20 07/08/22 10:00 BP 109/43 07/08/22 10:00 Pulse Ox 97 07/08/22 10:00 FiO2 90 07/08/22 10:00 Intake & Output 07/07/22 07/08/22 07/08/22 18:59 06:59 18:59 Intake Total 2843.839 3688.568 1092.040 Output Total 0 20 0 Balance 2843.839 3668.568 1092.040 Weight 78.6 kg Intake: IV 1683 1989 499 .9NS Pressure Line 33 39 9 0.9 40 Dextrose 5% in Water 1, 1650 1950 450 000 ml @ 150 mls/hr IV . Q7H40M SHANELL with Sodium Bicarb (1 Meq/ml) 150 ml Rx#:[id number] Intake, IV Titration 645.300 5277.568 378.040 Amount Amiodarone 360 mg In 200 Dextrose 5% in Water 200 ml @ 1 MG/MIN 33.333 mls/ hr IV .Q6H ONE Rx#: [id number] Insulin Regular 100 unit 22.1 34.043 18.151 In Sodium Chloride 0.9% 100 ml @ Titrate IV .Q0M SHANELL Rx#:[id number] Norepinephrine 8 mg In 467.304 644.563 109.889 Sodium Chloride 0.9% 250 ml @ 0.03 MCG/KG/MIN 3. 425 mls/hr IV .Q24H SHANELL Rx#:[id number] Vancomycin 1,000 mg In 250 Sodium Chloride 0.9% 250 ml @ 125 mls/hr IVPB ONCE ONE Rx#:[id number] Vasopressin 60 unit In 145.962 Sodium Chloride 0.9% 150 ml @ 0.03 UNITS/MIN 4.59 mls/hr IV .Q24H [facility] Rx#: [id number] propofoL 1,000 mg In 86.435 Empty Bag 1 bag @ 15 MCG/ KG/MIN 5.31 mls/hr IV . [id number] [facility] Rx#:[id number] Tube Feeding 495 585 135 Other 90 90 80 Output: Urine 0 20 0 Other: Voiding Method Indwelling Catheter Indwelling Catheter # Voids 0 # Bowel Movements 1 1 ABP, PAP, CO, CI - Last Documented Arterial Blood Pressure 133/42 - Exam Patient is sedated and intubated Examination of the heart S1 and S2 Examination of the lungs decreased breath sounds at the bases Abdomen is soft nontender Examination lower extremities shows 4+ edema - Labs CBC & Chem 7: 07/08/22 04:00 07/08/22 04:00 Labs: Abnormal Lab Results - Last 24 Hours (Table) 07/07/22 07/07/22 07/07/22 Range/Units 11:24 13:04 14:16 WBC (3.8-10.6) k/uL RBC (4.30-5.90) m/uL Hgb (13.0-17.5) gm/dL Hct (39.0-53.0) % Neutrophils # (1.3-7.7) k/uL Monocytes # (0-1.0) k/uL ABG pCO2 (35-45) mmHg ABG pO2 (83-108) mmHg ABG HCO3 (21-25) mmol/L ABG Total CO2 (19-24) mmol/L Sodium (137-145) mmol/L Chloride (98-107) mmol/L Carbon Dioxide (22-30) mmol/L BUN (9-20) mg/dL Creatinine (0.66-1.25) mg/dL Glucose (74-99) mg/dL POC Glucose (mg/dL) 159 H 114 H 111 H (70-110) mg/dL Calcium (8.4-10.2) mg/dL AST (17-59) U/L ALT (4-49) U/L Alkaline Phosphatase (38-126) U/L Total Protein (6.3-8.2) g/dL Albumin (3.5-5.0) g/dL 07/07/22 07/07/22 07/07/22 Range/Units 15:18 17:07 18:20 WBC (3.8-10.6) k/uL RBC (4.30-5.90) m/uL Hgb (13.0-17.5) gm/dL Hct (39.0-53.0) % Neutrophils # (1.3-7.7) k/uL Monocytes # (0-1.0) k/uL ABG pCO2 (35-45) mmHg ABG pO2 (83-108) mmHg ABG HCO3 (21-25) mmol/L ABG Total CO2 (19-24) mmol/L Sodium (137-145) mmol/L Chloride (98-107) mmol/L Carbon Dioxide (22-30) mmol/L BUN (9-20) mg/dL Creatinine (0.66-1.25) mg/dL Glucose (74-99) mg/dL POC Glucose (mg/dL) 118 H 168 H 180 H (70-110) mg/dL Calcium (8.4-10.2) mg/dL AST (17-59) U/L ALT (4-49) U/L Alkaline Phosphatase (38-126) U/L Total Protein (6.3-8.2) g/dL Albumin (3.5-5.0) g/dL 07/07/22 07/07/22 07/07/22 Range/Units 19:09 19:58 20:52 WBC (3.8-10.6) k/uL RBC (4.30-5.90) m/uL Hgb (13.0-17.5) gm/dL Hct (39.0-53.0) % Neutrophils # (1.3-7.7) k/uL Monocytes # (0-1.0) k/uL ABG pCO2 (35-45) mmHg ABG pO2 (83-108) mmHg ABG HCO3 (21-25) mmol/L ABG Total CO2 (19-24) mmol/L Sodium (137-145) mmol/L Chloride (98-107) mmol/L Carbon Dioxide (22-30) mmol/L BUN (9-20) mg/dL Creatinine (0.66-1.25) mg/dL Glucose (74-99) mg/dL POC Glucose (mg/dL) 167 H 192 H 188 H (70-110) mg/dL Calcium (8.4-10.2) mg/dL AST (17-59) U/L ALT (4-49) U/L Alkaline Phosphatase (38-126) U/L Total Protein (6.3-8.2) g/dL Albumin (3.5-5.0) g/dL 07/07/22 07/07/22 07/08/22 Range/Units 21:59 22:55 00:01 WBC (3.8-10.6) k/uL RBC (4.30-5.90) m/uL Hgb (13.0-17.5) gm/dL Hct (39.0-53.0) % Neutrophils # (1.3-7.7) k/uL Monocytes # (0-1.0) k/uL ABG pCO2 (35-45) mmHg ABG pO2 (83-108) mmHg ABG HCO3 (21-25) mmol/L ABG Total CO2 (19-24) mmol/L Sodium (137-145) mmol/L Chloride (98-107) mmol/L Carbon Dioxide (22-30) mmol/L BUN (9-20) mg/dL Creatinine (0.66-1.25) mg/dL Glucose (74-99) mg/dL POC Glucose (mg/dL) 178 H 154 H 134 H (70-110) mg/dL Calcium (8.4-10.2) mg/dL AST (17-59) U/L ALT (4-49) U/L Alkaline Phosphatase (38-126) U/L Total Protein (6.3-8.2) g/dL Albumin (3.5-5.0) g/dL 07/08/22 07/08/22 07/08/22 Range/Units 00:56 02:04 02:59 WBC (3.8-10.6) k/uL RBC (4.30-5.90) m/uL Hgb (13.0-17.5) gm/dL Hct (39.0-53.0) % Neutrophils # (1.3-7.7) k/uL Monocytes # (0-1.0) k/uL ABG pCO2 (35-45) mmHg ABG pO2 (83-108) mmHg ABG HCO3 (21-25) mmol/L ABG Total CO2 (19-24) mmol/L Sodium (137-145) mmol/L Chloride (98-107) mmol/L Carbon Dioxide (22-30) mmol/L BUN (9-20) mg/dL Creatinine (0.66-1.25) mg/dL Glucose (74-99) mg/dL POC Glucose (mg/dL) 135 H 167 H 189 H (70-110) mg/dL Calcium (8.4-10.2) mg/dL AST (17-59) U/L ALT (4-49) U/L Alkaline Phosphatase (38-126) U/L Total Protein (6.3-8.2) g/dL Albumin (3.5-5.0) g/dL 07/08/22 07/08/22 07/08/22 Range/Units 03:58 04:00 04:00 WBC 22.1 H (3.8-10.6) k/uL RBC 2.49 L (4.30-5.90) m/uL Hgb 7.8 L (13.0-17.5) gm/dL Hct 24.0 L (39.0-53.0) % Neutrophils # 18.9 H (1.3-7.7) k/uL Monocytes # 1.7 H (0-1.0) k/uL ABG pCO2 (35-45) mmHg ABG pO2 (83-108) mmHg ABG HCO3 (21-25) mmol/L ABG Total CO2 (19-24) mmol/L Sodium 131 L (137-145) mmol/L Chloride 87 L (98-107) mmol/L Carbon Dioxide 17 L (22-30) mmol/L BUN 93 H (9-20) mg/dL Creatinine 3.21 H (0.66-1.25) mg/dL Glucose 166 H (74-99) mg/dL POC Glucose (mg/dL) 191 H (70-110) mg/dL Calcium 6.3 L* (8.4-10.2) mg/dL AST 1370 H (17-59) U/L ALT 264 H (4-49) U/L Alkaline Phosphatase 204 H (38-126) U/L Total Protein 3.6 L (6.3-8.2) g/dL Albumin 1.6 L (3.5-5.0) g/dL 07/08/22 07/08/22 07/08/22 Range/Units 04:53 05:41 05:45 WBC (3.8-10.6) k/uL RBC (4.30-5.90) m/uL Hgb (13.0-17.5) gm/dL Hct (39.0-53.0) % Neutrophils # (1.3-7.7) k/uL Monocytes # (0-1.0) k/uL ABG pCO2 29 L (35-45) mmHg ABG pO2 82 L (83-108) mmHg ABG HCO3 17 L (21-25) mmol/L ABG Total CO2 18 L (19-24) mmol/L Sodium (137-145) mmol/L Chloride (98-107) mmol/L Carbon Dioxide (22-30) mmol/L BUN (9-20) mg/dL Creatinine (0.66-1.25) mg/dL Glucose (74-99) mg/dL POC Glucose (mg/dL) 203 H 195 H (70-110) mg/dL Calcium (8.4-10.2) mg/dL AST (17-59) U/L ALT (4-49) U/L Alkaline Phosphatase (38-126) U/L Total Protein (6.3-8.2) g/dL Albumin (3.5-5.0) g/dL 07/08/22 07/08/22 07/08/22 Range/Units 06:52 08:03 09:16 WBC (3.8-10.6) k/uL RBC (4.30-5.90) m/uL Hgb (13.0-17.5) gm/dL Hct (39.0-53.0) % Neutrophils # (1.3-7.7) k/uL Monocytes # (0-1.0) k/uL ABG pCO2 (35-45) mmHg ABG pO2 (83-108) mmHg ABG HCO3 (21-25) mmol/L ABG Total CO2 (19-24) mmol/L Sodium (137-145) mmol/L Chloride (98-107) mmol/L Carbon Dioxide (22-30) mmol/L BUN (9-20) mg/dL Creatinine (0.66-1.25) mg/dL Glucose (74-99) mg/dL POC Glucose (mg/dL) 183 H 166 H 152 H (70-110) mg/dL Calcium (8.4-10.2) mg/dL AST (17-59) U/L ALT (4-49) U/L Alkaline Phosphatase (38-126) U/L Total Protein (6.3-8.2) g/dL Albumin (3.5-5.0) g/dL 07/08/22 Range/Units 10:11 WBC (3.8-10.6) k/uL RBC (4.30-5.90) m/uL Hgb (13.0-17.5) gm/dL Hct (39.0-53.0) % Neutrophils # (1.3-7.7) k/uL Monocytes # (0-1.0) k/uL ABG pCO2 (35-45) mmHg ABG pO2 (83-108) mmHg ABG HCO3 (21-25) mmol/L ABG Total CO2 (19-24) mmol/L Sodium (137-145) mmol/L Chloride (98-107) mmol/L Carbon Dioxide (22-30) mmol/L BUN (9-20) mg/dL Creatinine (0.66-1.25) mg/dL Glucose (74-99) mg/dL POC Glucose (mg/dL) 164 H (70-110) mg/dL Calcium (8.4-10.2) mg/dL AST (17-59) U/L ALT (4-49) U/L Alkaline Phosphatase (38-126) U/L Total Protein (6.3-8.2) g/dL Albumin (3.5-5.0) g/dL Microbiology - Last 24 Hours (Table) 07/04/22 08:00 Blood Culture - Preliminary Blood No Growth after 96 hours 07/04/22 08:00 Blood Culture - Preliminary Blood No Growth after 96 hours 07/01/22 11:46 Blood Culture - Final Blood No Growth after 144 hours 07/05/22 20:41 Gram Stain - Preliminary Sputum Sputum Culture - Preliminary Presumptive Staph aureus Assessment and Plan Assessment: 1. Hyponatremia from poor solute intake. Hypervolemic. Sodium is currently on the lower side associated with acute kidney injury, oliguria and volume overload 2. Acute hypoxic respiratory failure , currently intubated. 3. Prostate cancer with metastatic disease. 4. Benign hypertension. Stable. 5. Diabetes mellitus. 6. Parkinson's disease. Neurology following. 7. Urinary retention. Edward catheter placed. On Flomax. No hydronephrosis no sarahy on kidney ultrasound. Left kidney not visualized. 8. Hypokalemia from poor intake and diuresis. Replaced. 10. A. fib with RVR maintained on amiodarone drip 11. Metabolic acidosis currently on bicarb drip 12. Acute kidney injury secondary to hypotension and hemodynamic instability. Oliguric. No plans for renal replacement therapy due to profound hypotension, currently on max dose pressors 13. Hyperkalemia associated with acute kidney injury and metabolic acidosis Plan: Continue with IV bicarb Repeat Lasix 1. Discussed with son yesterday regarding poor prognosis and the fact that patient is not a candidate for renal replacement therapy given his metastatic prostatic cancer as well as significant hypotension requiring high doses of pressors along with A. fib with RVR. Recommend comfort care measures.
[2022-07-08] MEDS: AMIODARONE 360 MG in DEXTROSE 5% IN WATER 200 ML IV SCH ×4 (10:47→17:03)
[2022-07-08 10:52] VITALS: BMI 26.3
[2022-07-08] MEDS ORDERED: FUROSEMIDE 10 MG/ML 10 ML VIAL IV STA (11:25)
--- NOTE | 2022-07-08 11:28 | P.PN ---
Subjective Progress Note Date: 07/08/22 Principal diagnosis: AMS The patient is an 87-year-old male with a PMH of 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 He was brought into the emergency room on 06/24/22 by his son for altered mental status and failure to thrive. Per the son, the patient who has been on Sinemet for several years recently had it discontinued by Dr. Luz and started on amantadine. The son reports that ever since the medication change, his father has not been quite himself. He reports that the patient has now developed worsening tremors and has been increasingly confused and refusing to eat or drink much. At baseline, he reports that his father is oriented 3 and was able to use his walker to ambulate throughout the house and get himself out of bed and seat himself on the toilet. He reports that since the medication change, the patient is also suffered several falls leading to the bruising over his arms. The patient was not answering any questions appropriately. Head/cervical spine CT in the emergency room was consistent with metastatic osteoblastic disease. Pelvis x- ray also unremarkable aside from stable metastatic disease. Chest x-ray revea led pulmonary edema and pleural fluid, possible CHF. Right forearm x-ray was unremarkable. EKG reveals sinus rhythm with left axis deviation a 69 bpm with a left bundle branch block. Initially found to have severe hypervolemic hyponatremia likely in setting of CHF exacerbation. Patient was evaluated by cardiology and nephrology. Sodium improved with diuretics. Altered mental status likely secondary to severe hyponatremia versus worsening Parkinson's. Neurology is allyson following.. Amantadine was discontinued as it can potentially cause urinary retention and behavioral changes/confusion. Sinemet was continued. Patient had swallow evaluation, failed. Modified barium swallow also failed. Patient's son would prefer to eventually take him home with a feeding tube, the patient's daughter does not believe that is the right course. Patient has not signed anyone has his primary decision maker. 06/29 The patient is resting in bed and appears comfortable. His speech is slurred and very hard to understand. Had a phone conversation with the patient's daughter in attempt to set up a family meeting. Palliative care philosophies and services explained. Unfortunately, she lives in [place]. She voiced many concerns regarding her father. She is concerned that her brother may need help caring for her father. Her brother has to work and the patient is then left alone for periods of time and has fallen on multiple occasions. She stated that she has had conversations with her father in the past regarding end of life. Back in 2018 he did agree to be fully resuscitated, placed on a ventilator if it were short term, and for placement of a feeding tube. She is worried that her brother is unrealistic and not able to face that their dad is near the end of his life. She values quality of life over quantity of life. The patient's son is at the bedside, and his sister is on speakerphone for family meeting. After I introduced myself, the son was defensive and stated he did not want me there or to talk about his father's medical issues with him. The discussion regarding PEG tube placement was non-productive. Attempted to talk about why PEG tube is not recommended for patient's with dementia. There is still risks of bleeding, infection, and aspiration involved with the peg tube. There is also a concern that he may pull it out. The patient's son stated that his father was getting the PEG tube tomorrow no matter what I say. It was difficult to talk and make a point during without being interrupted. the son was not interested in listening. It was explained multiple times that palliative care is a support service to help guide them in determining which treatments are beneficial and which may cause undue burden. he repeated that he did not want me there. The patient's daughter was trying to gather information and understand her father's condition to make good decisions. The son was angry telling her to shut up and to stop getting in the way of their dad's treatment. He stated she had no right to put conditions on his care. She would like someone to be there 24 hours a day to care for her father and to keep him safe. The son insists that his father is telling him that he doesn't want to give up and wants to continue treatment. I only observed the patient repeating what he was told to say. He is confused and not capable of making his own decisions at this time. Voiced concern about the patient's recent decline in functional status. Neha Glaicia, oncology [employer]ON[employer] WATCHSTANDER, was called to clarify if they would continue the patient's Xtandi if the patient got a peg tube placed. She stated that he has done well with the treatment in the past. She will check into if the medication can be crushed and administered through a peg tube. If it is able to, they could resume his Xtandi immediately after peg placement. The patient's son stated if they are unable to continue his father's treatment here, then he will take him to [facility] for a second opinion. Ultimately, after much arguing, the patient's son and daughter agreed to proceed with a peg tube placement tomorrow. 07/01 The patient is lying in bed and appears less responsive today. He does grimace and moan out in pain occasionally. His son is at the bedside. He does n ot believe his father is suffering and is still adamant about doing everything to give him a fighting chance. Unfortunately the patient has a very poor prognosis. The son is asking for a list of ambulance companies that can help transport his father home when he is discharged. He was informed that his father will be here for a while yet. 07/04 The patient is obtunded. He is febrile at 103.1 degrees, tachycardic, and tachypneic in the 30's with labored breathing. The nurse is in the room trying to care or the patient. Unfortunately his son is there making unreasonable demands from her while she is on the phone trying to get help. He turned to me and asked me what I was doing there. I told him I was only there to check on him and his father and see how things were going. He said " I do not want to talk to you. Get out!" I gently reminded him that I know this is not an easy time for him, but I am here to support the patient and him. He replied loudly that he did not want me interfering with anything and to leave. The nurse told him to stop yelling and to be respectful of the staff. He stated that we were trying to kill his dad and not do anything for him. I stated that we were not with holding care, we are doing everything we can for his dad, but he is still declining. He yelled at the nurse and said "then do what I am asking you to do!" He was requesting that humidification be added to his nasal cannula and his oxygen be turned up. His SPO2 was 89%. The nurse replied that she has already notified respiratory therapy. Code status was addressed again. The son stated he wanted everything done. He will not just let his father . He will give hi a fighting chance. He was told that the nursing staff is concerned about doing CPR on the patient. He is very cachectic and frail. We would more that likely break ribs and cause more pain and suffering. He stated we were to do everything or his dad. Patient advocate and nursing administrative supervisor aware of issues. Spoke with the patient's daughter, Caprice, via telephone. She was updated on her father's condition and her brothers decisions. Attending also notified. 07/05 Patient became hemodynamically unstable and was transferred to the ICU. He was intubated, lined, and put on pressors. Patient's son is present and pacing in the room. Poll Watcher did not enter the room to prevent upsetting the son. Patient seems to be actively dying. Spoke with RN, the son is very adamant that everything possible be done and for the patient remain a full code.Patient's daughter, Caprice, is due to arrive in town today from [place]. Will attempt to speak with and support Caprice when she arrives. 07/06 Spoke to Caprice via telephone. She stated that she had just arrived to the hospital and is talking to the nurses and physicians trying to get updates. 07/07 Spoke to the patient's RN. She stated there are no improvements in the patient's condition. Unfortunately, security had to be called yesterday to calm the patient's son down. Received a phone call from the patient's daughter, Caprice today. She was informed that her father is in septic shock with multisystem organ failure. We talked about his respiratory failure and need to be mechanically ventilated due to his LLL aspiration pneumonia and the patient being obtunded, to protect his airway. She was also informed that his heart is irritable and in and out of Afib with RVR with recorded rates as high a 170. He is also on two pressors, both maxed, to support his blood pressure. His MAP is still low and his heat is not providing enough perfusion to his organs, including his liver and kidneys. He now has a shock liver and renal failure with very little urine output. She was assured that the medical team is doing everything possible for her father, but unfortunately he has declined significantly in the last couple days. We went through 3 possible scenarios for the patient: 1 - We continue doing everything we can for the patient until his body fails and he codes. As a full code we would then to chest compressions, possible cardiovert him, and give him some medication in an attempt to resuscitate him. The likelihood of us being successful is almost zero and would cause pain and suffering at the end of his life. 2 - We continue doing everything we can for the patient until his body fails and he codes. If we make him a DNR, then we would not attempt to resuscitate him at this point and let nature take it's course. 3 - We could withdraw care. Medicate him to keep him pain free and comfortable. Then take him off the ventilator and the medications supporting hiss blood pressure and let him pass peacefully and as comfortably as possible. Caprice does not want her dad to suffer unnecessarily, but thinks she will have a hard time convincing her brother. He still wants everything done for their father. She stated at one point, a couple years ago, her father did say that he wanted to be a full code. But we are in a different place now, and probably worse off than he could imagine. Caprice also reported that her brother has been saying that he would be alone in the world if his father passes. She has called her aunt and cousins and asked them to reach out to him so he knows that he has the support of his family. She also asked if we could have a hospital charter coordinator visit the patient. She said her brother is turning to his kaylyn for comfort. She is worried that he might not want a charter coordinator to come. She was instructed to ask her brother, if he agrees I will do my best to find one to come. Objective - Vital Signs Vital signs: Vital Signs Temp 98.0 F 07/08/22 08:00 Pulse 64 07/08/22 10:00 Resp 20 07/08/22 10:00 BP 109/43 07/08/22 10:00 Pulse Ox 97 07/08/22 10:00 FiO2 90 07/08/22 10:00 Intake & Output 07/07/22 07/08/22 07/08/22 18:59 06:59 18:59 Intake Total 2843.839 3688.568 1092.040 Output Total 0 20 0 Balance 2843.839 3668.568 1092.040 Weight 78.6 kg Intake: IV 1683 1989 499 .9NS Pressure Line 33 39 9 0.9 40 Dextrose 5% in Water 1, 1650 1950 450 000 ml @ 150 mls/hr IV . Q7H40M SHANELL with Sodium Bicarb (1 Meq/ml) 150 ml Rx#:[id number] Intake, IV Titration 145.184 6896.568 378.040 Amount Amiodarone 360 mg In 200 Dextrose 5% in Water 200 ml @ 1 MG/MIN 33.333 mls/ hr IV .Q6H ONE Rx#: [id number] Insulin Regular 100 unit 22.1 34.043 18.151 In Sodium Chloride 0.9% 100 ml @ Titrate IV .Q0M [facility] Rx#:[id number] Norepinephrine 8 mg In 467.304 644.563 109.889 Sodium Chloride 0.9% 250 ml @ 0.03 MCG/KG/MIN 3. 425 mls/hr IV .Q24H [facility] Rx#:[id number] Vancomycin 1,000 mg In 250 Sodium Chloride 0.9% 250 ml @ 125 mls/hr IVPB ONCE ONE Rx#:[id number] Vasopressin 60 unit In 145.962 Sodium Chloride 0.9% 150 ml @ 0.03 UNITS/MIN 4.59 mls/hr IV .Q24H [facility] Rx#: [id number] propofoL 1,000 mg In 86.435 Empty Bag 1 bag @ 15 MCG/ KG/MIN 5.31 mls/hr IV . [id number] [facility] Rx#:[id number] Tube Feeding 495 585 135 Other 90 90 80 Output: Urine 0 20 0 Other: Voiding Method Indwelling Catheter Indwelling Catheter # Voids 0 # Bowel Movements 1 1 ABP, PAP, CO, CI - Last Documented Arterial Blood Pressure 133/42 - Exam General: Well developed, well nourished. Cachectic, Chronically ill appearing HEENT: Head is atraumatic, normocephalic. CV: Heart irregular in rate and rhythm positive S1 and S2. Lungs: Synchronized with mechanical ventilator, 100% FIO2 PEEP 5 Abdomen/GI: Soft. No organmegaly. NGT present Musculoskeletal/ Extremities: No contractures, [place] Skin: Warm and dry.multiple bruises and scabs Neurologic: sedated - Labs CBC & Chem 7: 07/08/22 04:00 07/08/22 04:00 Labs: Abnormal Lab Results - Last 24 Hours (Table) 07/07/22 07/07/22 07/07/22 Range/Units 11:24 13:04 14:16 WBC (3.8-10.6) k/uL RBC (4.30-5.90) m/uL Hgb (13.0-17.5) gm/dL Hct (39.0-53.0) % Neutrophils # (1.3-7.7) k/uL Monocytes # (0-1.0) k/uL ABG pCO2 (35-45) mmHg ABG pO2 (83-108) mmHg ABG HCO3 (21-25) mmol/L ABG Total CO2 (19-24) mmol/L Sodium (137-145) mmol/L Chloride (98-107) mmol/L Carbon Dioxide (22-30) mmol/L BUN (9-20) mg/dL Creatinine (0.66-1.25) mg/dL Glucose (74-99) mg/dL POC Glucose (mg/dL) 159 H 114 H 111 H (70-110) mg/dL Calcium (8.4-10.2) mg/dL AST (17-59) U/L ALT (4-49) U/L Alkaline Phosphatase (38-126) U/L Total Protein (6.3-8.2) g/dL Albumin (3.5-5.0) g/dL 07/07/22 07/07/22 07/07/22 Range/Units 15:18 17:07 18:20 WBC (3.8-10.6) k/uL RBC (4.30-5.90) m/uL Hgb (13.0-17.5) gm/dL Hct (39.0-53.0) % Neutrophils # (1.3-7.7) k/uL Monocytes # (0-1.0) k/uL ABG pCO2 (35-45) mmHg ABG pO2 (83-108) mmHg ABG HCO3 (21-25) mmol/L ABG Total CO2 (19-24) mmol/L Sodium (137-145) mmol/L Chloride (98-107) mmol/L Carbon Dioxide (22-30) mmol/L BUN (9-20) mg/dL Creatinine (0.66-1.25) mg/dL Glucose (74-99) mg/dL POC Glucose (mg/dL) 118 H 168 H 180 H (70-110) mg/dL Calcium (8.4-10.2) mg/dL AST (17-59) U/L ALT (4-49) U/L Alkaline Phosphatase (38-126) U/L Total Protein (6.3-8.2) g/dL Albumin (3.5-5.0) g/dL 07/07/22 07/07/22 07/07/22 Range/Units 19:09 19:58 20:52 WBC (3.8-10.6) k/uL RBC (4.30-5.90) m/uL Hgb (13.0-17.5) gm/dL Hct (39.0-53.0) % Neutrophils # (1.3-7.7) k/uL Monocytes # (0-1.0) k/uL ABG pCO2 (35-45) mmHg ABG pO2 (83-108) mmHg ABG HCO3 (21-25) mmol/L ABG Total CO2 (19-24) mmol/L Sodium (137-145) mmol/L Chloride (98-107) mmol/L Carbon Dioxide (22-30) mmol/L BUN (9-20) mg/dL Creatinine (0.66-1.25) mg/dL Glucose (74-99) mg/dL POC Glucose (mg/dL) 167 H 192 H 188 H (70-110) mg/dL Calcium (8.4-10.2) mg/dL AST (17-59) U/L ALT (4-49) U/L Alkaline Phosphatase (38-126) U/L Total Protein (6.3-8.2) g/dL Albumin (3.5-5.0) g/dL 07/07/22 07/07/22 07/08/22 Range/Units 21:59 22:55 00:01 WBC (3.8-10.6) k/uL RBC (4.30-5.90) m/uL Hgb (13.0-17.5) gm/dL Hct (39.0-53.0) % Neutrophils # (1.3-7.7) k/uL Monocytes # (0-1.0) k/uL ABG pCO2 (35-45) mmHg ABG pO2 (83-108) mmHg ABG HCO3 (21-25) mmol/L ABG Total CO2 (19-24) mmol/L Sodium (137-145) mmol/L Chloride (98-107) mmol/L Carbon Dioxide (22-30) mmol/L BUN (9-20) mg/dL Creatinine (0.66-1.25) mg/dL Glucose (74-99) mg/dL POC Glucose (mg/dL) 178 H 154 H 134 H (70-110) mg/dL Calcium (8.4-10.2) mg/dL AST (17-59) U/L ALT (4-49) U/L Alkaline Phosphatase (38-126) U/L Total Protein (6.3-8.2) g/dL Albumin (3.5-5.0) g/dL 07/08/22 07/08/22 07/08/22 Range/Units 00:56 02:04 02:59 WBC (3.8-10.6) k/uL RBC (4.30-5.90) m/uL Hgb (13.0-17.5) gm/dL Hct (39.0-53.0) % Neutrophils # (1.3-7.7) k/uL Monocytes # (0-1.0) k/uL ABG pCO2 (35-45) mmHg ABG pO2 (83-108) mmHg ABG HCO3 (21-25) mmol/L ABG Total CO2 (19-24) mmol/L Sodium (137-145) mmol/L Chloride (98-107) mmol/L Carbon Dioxide (22-30) mmol/L BUN (9-20) mg/dL Creatinine (0.66-1.25) mg/dL Glucose (74-99) mg/dL POC Glucose (mg/dL) 135 H 167 H 189 H (70-110) mg/dL Calcium (8.4-10.2) mg/dL AST (17-59) U/L ALT (4-49) U/L Alkaline Phosphatase (38-126) U/L Total Protein (6.3-8.2) g/dL Albumin (3.5-5.0) g/dL 07/08/22 07/08/22 07/08/22 Range/Units 03:58 04:00 04:00 WBC 22.1 H (3.8-10.6) k/uL RBC 2.49 L (4.30-5.90) m/uL Hgb 7.8 L (13.0-17.5) gm/dL Hct 24.0 L (39.0-53.0) % Neutrophils # 18.9 H (1.3-7.7) k/uL Monocytes # 1.7 H (0-1.0) k/uL ABG pCO2 (35-45) mmHg ABG pO2 (83-108) mmHg ABG HCO3 (21-25) mmol/L ABG Total CO2 (19-24) mmol/L Sodium 131 L (137-145) mmol/L Chloride 87 L (98-107) mmol/L Carbon Dioxide 17 L (22-30) mmol/L BUN 93 H (9-20) mg/dL Creatinine 3.21 H (0.66-1.25) mg/dL Glucose 166 H (74-99) mg/dL POC Glucose (mg/dL) 191 H (70-110) mg/dL Calcium 6.3 L* (8.4-10.2) mg/dL AST 1370 H (17-59) U/L ALT 264 H (4-49) U/L Alkaline Phosphatase 204 H (38-126) U/L Total Protein 3.6 L (6.3-8.2) g/dL Albumin 1.6 L (3.5-5.0) g/dL 07/08/22 07/08/22 07/08/22 Range/Units 04:53 05:41 05:45 WBC (3.8-10.6) k/uL RBC (4.30-5.90) m/uL Hgb (13.0-17.5) gm/dL Hct (39.0-53.0) % Neutrophils # (1.3-7.7) k/uL Monocytes # (0-1.0) k/uL ABG pCO2 29 L (35-45) mmHg ABG pO2 82 L (83-108) mmHg ABG HCO3 17 L (21-25) mmol/L ABG Total CO2 18 L (19-24) mmol/L Sodium (137-145) mmol/L Chloride (98-107) mmol/L Carbon Dioxide (22-30) mmol/L BUN (9-20) mg/dL Creatinine (0.66-1.25) mg/dL Glucose (74-99) mg/dL POC Glucose (mg/dL) 203 H 195 H (70-110) mg/dL Calcium (8.4-10.2) mg/dL AST (17-59) U/L ALT (4-49) U/L Alkaline Phosphatase (38-126) U/L Total Protein (6.3-8.2) g/dL Albumin (3.5-5.0) g/dL 07/08/22 07/08/22 07/08/22 Range/Units 06:52 08:03 09:16 WBC (3.8-10.6) k/uL RBC (4.30-5.90) m/uL Hgb (13.0-17.5) gm/dL Hct (39.0-53.0) % Neutrophils # (1.3-7.7) k/uL Monocytes # (0-1.0) k/uL ABG pCO2 (35-45) mmHg ABG pO2 (83-108) mmHg ABG HCO3 (21-25) mmol/L ABG Total CO2 (19-24) mmol/L Sodium (137-145) mmol/L Chloride (98-107) mmol/L Carbon Dioxide (22-30) mmol/L BUN (9-20) mg/dL Creatinine (0.66-1.25) mg/dL Glucose (74-99) mg/dL POC Glucose (mg/dL) 183 H 166 H 152 H (70-110) mg/dL Calcium (8.4-10.2) mg/dL AST (17-59) U/L ALT (4-49) U/L Alkaline Phosphatase (38-126) U/L Total Protein (6.3-8.2) g/dL Albumin (3.5-5.0) g/dL 07/08/22 Range/Units 10:11 WBC (3.8-10.6) k/uL RBC (4.30-5.90) m/uL Hgb (13.0-17.5) gm/dL Hct (39.0-53.0) % Neutrophils # (1.3-7.7) k/uL Monocytes # (0-1.0) k/uL ABG pCO2 (35-45) mmHg ABG pO2 (83-108) mmHg ABG HCO3 (21-25) mmol/L ABG Total CO2 (19-24) mmol/L Sodium (137-145) mmol/L Chloride (98-107) mmol/L Carbon Dioxide (22-30) mmol/L BUN (9-20) mg/dL Creatinine (0.66-1.25) mg/dL Glucose (74-99) mg/dL POC Glucose (mg/dL) 164 H (70-110) mg/dL Calcium (8.4-10.2) mg/dL AST (17-59) U/L ALT (4-49) U/L Alkaline Phosphatase (38-126) U/L Total Protein (6.3-8.2) g/dL Albumin (3.5-5.0) g/dL Microbiology - Last 24 Hours (Table) 07/04/22 08:00 Blood Culture - Preliminary Blood No Growth after 96 hours 07/04/22 08:00 Blood Culture - Preliminary Blood No Growth after 96 hours 07/01/22 11:46 Blood Culture - Final Blood No Growth after 144 hours 07/05/22 20:41 Gram Stain - Preliminary Sputum Sputum Culture - Preliminary Presumptive Staph aureus Assessment and Plan Assessment: Symptoms * Pain - CPOT 0, continue Neurotin, Tylenol, and Morphine prn * Fatigue - Frail, debilitated, and weak * SOB - Intubated and on vent * Insomnia - No * N/V - No * Anxiety - sedated * Depression - MIRIAM * Confusion - sedated * Agitation - sedated * Hallucinations - MIRIAM * Appetite/weight loss - NPO, failed swallow eval and MBS * Dysphagia - Yes, PEG tube in place with ube feeding * Constipation - No, LBM today. Continue miralax and colace * Incontinence - Edward catheter, concentrated urine * Itch - No Plan: Summary/Goals - Patient now on 100% FIO2. Case rviewed with RN, patient advocate, and Dr. Helm. Ethics consult placed to help resolve conflict between patient's son and daughter. They have different views on how their father's care should be managed, including code status, moving forward. Code Status - Full code Malu Spencer [facility] Palliative Care Spectralink [id number] Email: [email or web address] with Patient: Greater than 30
[2022-07-08 11:35] LABS: Glucose,Whole Blood 148 mg/dL (70-110)
--- NOTE | 2022-07-08 12:41 | P.PN ---
Subjective Progress Note Date: 07/08/22 Principal diagnosis: sepsis Patient is still the same, requiring max pressors, still on vent. No urine output. Objective - Vital Signs Vital signs: Vital Signs Temp 97.4 F L 07/08/22 12:00 Pulse 63 07/08/22 12:00 Resp 23 07/08/22 12:00 BP 109/43 07/08/22 12:00 Pulse Ox 92 L 07/08/22 12:00 FiO2 90 07/08/22 12:00 Intake & Output 07/07/22 07/08/22 07/08/22 18:59 06:59 18:59 Intake Total 2843.839 3688.568 1565.557 Output Total 0 20 0 Balance 2843.839 3668.568 1565.557 Weight 78.6 kg 78.6 kg Intake: IV 1683 1989 845 .9NS Pressure Line 33 39 15 0.9 80 Dextrose 5% in Water 1, 1650 1950 750 000 ml @ 150 mls/hr IV . Q7H40M [facility] with Sodium Bicarb (1 Meq/ml) 150 ml Rx#:[id number] Intake, IV Titration 691.263 5324.568 385.557 Amount Amiodarone 360 mg In 200 Dextrose 5% in Water 200 ml @ 1 MG/MIN 33.333 mls/ hr IV .Q6H ONE Rx#: [id number] Insulin Regular 100 unit 22.1 34.043 25.668 In Sodium Chloride 0.9% 100 ml @ Titrate IV .Q0M [facility] Rx#:[id number] Norepinephrine 8 mg In 467.304 644.563 109.889 Sodium Chloride 0.9% 250 ml @ 0.03 MCG/KG/MIN 3. 425 mls/hr IV .Q24H [facility] Rx#:[id number] Vancomycin 1,000 mg In 250 Sodium Chloride 0.9% 250 ml @ 125 mls/hr IVPB ONCE ONE Rx#:[id number] Vasopressin 60 unit In 145.962 Sodium Chloride 0.9% 150 ml @ 0.03 UNITS/MIN 4.59 mls/hr IV .Q24H [facility] Rx#: [id number] propofoL 1,000 mg In 86.435 Empty Bag 1 bag @ 15 MCG/ KG/MIN 5.31 mls/hr IV . [id number] [facility] Rx#:[id number] Tube Feeding 495 585 225 Other 90 90 110 Output: Urine 0 20 0 Other: Voiding Method Indwelling Catheter Indwelling Catheter # Voids 0 # Bowel Movements 1 1 ABP, PAP, CO, CI - Last Documented Arterial Blood Pressure 127/42 - Exam General: sedated, unresponsive, on mechanical ventilation. cachectic Derm: warm, dry, sacral decubitus wounds present on admission Head: atraumatic, normocephalic, symmetric Eyes: no lid lag, anicteric sclera Mouth: no lip lesion, mucus membranes moist Cardiovascular: S1S2 tachy, irregularly irreg, tachycardic, no murmur Lungs: bilateral rhonchi, mechanical breath sounds bilaterally. Abdominal: soft, no guarding, no appreciable organomegaly Ext: no edema, no contractures Neuro: grimaces to sternal rubs, not opening eyes spontaneously - Labs CBC & Chem 7: 07/08/22 04:00 07/08/22 04:00 Labs: Abnormal Lab Results - Last 24 Hours (Table) 07/07/22 07/07/22 07/07/22 Range/Units 13:04 14:16 15:18 WBC (3.8-10.6) k/uL RBC (4.30-5.90) m/uL Hgb (13.0-17.5) gm/dL Hct (39.0-53.0) % Neutrophils # (1.3-7.7) k/uL Monocytes # (0-1.0) k/uL ABG pCO2 (35-45) mmHg ABG pO2 (83-108) mmHg ABG HCO3 (21-25) mmol/L ABG Total CO2 (19-24) mmol/L Sodium (137-145) mmol/L Chloride (98-107) mmol/L Carbon Dioxide (22-30) mmol/L BUN (9-20) mg/dL Creatinine (0.66-1.25) mg/dL Glucose (74-99) mg/dL POC Glucose (mg/dL) 114 H 111 H 118 H (70-110) mg/dL Calcium (8.4-10.2) mg/dL AST (17-59) U/L ALT (4-49) U/L Alkaline Phosphatase (38-126) U/L Total Protein (6.3-8.2) g/dL Albumin (3.5-5.0) g/dL 07/07/22 07/07/22 07/07/22 Range/Units 17:07 18:20 19:09 WBC (3.8-10.6) k/uL RBC (4.30-5.90) m/uL Hgb (13.0-17.5) gm/dL Hct (39.0-53.0) % Neutrophils # (1.3-7.7) k/uL Monocytes # (0-1.0) k/uL ABG pCO2 (35-45) mmHg ABG pO2 (83-108) mmHg ABG HCO3 (21-25) mmol/L ABG Total CO2 (19-24) mmol/L Sodium (137-145) mmol/L Chloride (98-107) mmol/L Carbon Dioxide (22-30) mmol/L BUN (9-20) mg/dL Creatinine (0.66-1.25) mg/dL Glucose (74-99) mg/dL POC Glucose (mg/dL) 168 H 180 H 167 H (70-110) mg/dL Calcium (8.4-10.2) mg/dL AST (17-59) U/L ALT (4-49) U/L Alkaline Phosphatase (38-126) U/L Total Protein (6.3-8.2) g/dL Albumin (3.5-5.0) g/dL 07/07/22 07/07/22 07/07/22 Range/Units 19:58 20:52 21:59 WBC (3.8-10.6) k/uL RBC (4.30-5.90) m/uL Hgb (13.0-17.5) gm/dL Hct (39.0-53.0) % Neutrophils # (1.3-7.7) k/uL Monocytes # (0-1.0) k/uL ABG pCO2 (35-45) mmHg ABG pO2 (83-108) mmHg ABG HCO3 (21-25) mmol/L ABG Total CO2 (19-24) mmol/L Sodium (137-145) mmol/L Chloride (98-107) mmol/L Carbon Dioxide (22-30) mmol/L BUN (9-20) mg/dL Creatinine (0.66-1.25) mg/dL Glucose (74-99) mg/dL POC Glucose (mg/dL) 192 H 188 H 178 H (70-110) mg/dL Calcium (8.4-10.2) mg/dL AST (17-59) U/L ALT (4-49) U/L Alkaline Phosphatase (38-126) U/L Total Protein (6.3-8.2) g/dL Albumin (3.5-5.0) g/dL 07/07/22 07/08/22 07/08/22 Range/Units 22:55 00:01 00:56 WBC (3.8-10.6) k/uL RBC (4.30-5.90) m/uL Hgb (13.0-17.5) gm/dL Hct (39.0-53.0) % Neutrophils # (1.3-7.7) k/uL Monocytes # (0-1.0) k/uL ABG pCO2 (35-45) mmHg ABG pO2 (83-108) mmHg ABG HCO3 (21-25) mmol/L ABG Total CO2 (19-24) mmol/L Sodium (137-145) mmol/L Chloride (98-107) mmol/L Carbon Dioxide (22-30) mmol/L BUN (9-20) mg/dL Creatinine (0.66-1.25) mg/dL Glucose (74-99) mg/dL POC Glucose (mg/dL) 154 H 134 H 135 H (70-110) mg/dL Calcium (8.4-10.2) mg/dL AST (17-59) U/L ALT (4-49) U/L Alkaline Phosphatase (38-126) U/L Total Protein (6.3-8.2) g/dL Albumin (3.5-5.0) g/dL 07/08/22 07/08/22 07/08/22 Range/Units 02:04 02:59 03:58 WBC (3.8-10.6) k/uL RBC (4.30-5.90) m/uL Hgb (13.0-17.5) gm/dL Hct (39.0-53.0) % Neutrophils # (1.3-7.7) k/uL Monocytes # (0-1.0) k/uL ABG pCO2 (35-45) mmHg ABG pO2 (83-108) mmHg ABG HCO3 (21-25) mmol/L ABG Total CO2 (19-24) mmol/L Sodium (137-145) mmol/L Chloride (98-107) mmol/L Carbon Dioxide (22-30) mmol/L BUN (9-20) mg/dL Creatinine (0.66-1.25) mg/dL Glucose (74-99) mg/dL POC Glucose (mg/dL) 167 H 189 H 191 H (70-110) mg/dL Calcium (8.4-10.2) mg/dL AST (17-59) U/L ALT (4-49) U/L Alkaline Phosphatase (38-126) U/L Total Protein (6.3-8.2) g/dL Albumin (3.5-5.0) g/dL 07/08/22 07/08/22 07/08/22 Range/Units 04:00 04:00 04:53 WBC 22.1 H (3.8-10.6) k/uL RBC 2.49 L (4.30-5.90) m/uL Hgb 7.8 L (13.0-17.5) gm/dL Hct 24.0 L (39.0-53.0) % Neutrophils # 18.9 H (1.3-7.7) k/uL Monocytes # 1.7 H (0-1.0) k/uL ABG pCO2 (35-45) mmHg ABG pO2 (83-108) mmHg ABG HCO3 (21-25) mmol/L ABG Total CO2 (19-24) mmol/L Sodium 131 L (137-145) mmol/L Chloride 87 L (98-107) mmol/L Carbon Dioxide 17 L (22-30) mmol/L BUN 93 H (9-20) mg/dL Creatinine 3.21 H (0.66-1.25) mg/dL Glucose 166 H (74-99) mg/dL POC Glucose (mg/dL) 203 H (70-110) mg/dL Calcium 6.3 L* (8.4-10.2) mg/dL AST 1370 H (17-59) U/L ALT 264 H (4-49) U/L Alkaline Phosphatase 204 H (38-126) U/L Total Protein 3.6 L (6.3-8.2) g/dL Albumin 1.6 L (3.5-5.0) g/dL 07/08/22 07/08/22 07/08/22 Range/Units 05:41 05:45 06:52 WBC (3.8-10.6) k/uL RBC (4.30-5.90) m/uL Hgb (13.0-17.5) gm/dL Hct (39.0-53.0) % Neutrophils # (1.3-7.7) k/uL Monocytes # (0-1.0) k/uL ABG pCO2 29 L (35-45) mmHg ABG pO2 82 L (83-108) mmHg ABG HCO3 17 L (21-25) mmol/L ABG Total CO2 18 L (19-24) mmol/L Sodium (137-145) mmol/L Chloride (98-107) mmol/L Carbon Dioxide (22-30) mmol/L BUN (9-20) mg/dL Creatinine (0.66-1.25) mg/dL Glucose (74-99) mg/dL POC Glucose (mg/dL) 195 H 183 H (70-110) mg/dL Calcium (8.4-10.2) mg/dL AST (17-59) U/L ALT (4-49) U/L Alkaline Phosphatase (38-126) U/L Total Protein (6.3-8.2) g/dL Albumin (3.5-5.0) g/dL 07/08/22 07/08/22 07/08/22 Range/Units 08:03 09:16 10:11 WBC (3.8-10.6) k/uL RBC (4.30-5.90) m/uL Hgb (13.0-17.5) gm/dL Hct (39.0-53.0) % Neutrophils # (1.3-7.7) k/uL Monocytes # (0-1.0) k/uL ABG pCO2 (35-45) mmHg ABG pO2 (83-108) mmHg ABG HCO3 (21-25) mmol/L ABG Total CO2 (19-24) mmol/L Sodium (137-145) mmol/L Chloride (98-107) mmol/L Carbon Dioxide (22-30) mmol/L BUN (9-20) mg/dL Creatinine (0.66-1.25) mg/dL Glucose (74-99) mg/dL POC Glucose (mg/dL) 166 H 152 H 164 H (70-110) mg/dL Calcium (8.4-10.2) mg/dL AST (17-59) U/L ALT (4-49) U/L Alkaline Phosphatase (38-126) U/L Total Protein (6.3-8.2) g/dL Albumin (3.5-5.0) g/dL 07/08/22 Range/Units 11:32 WBC (3.8-10.6) k/uL RBC (4.30-5.90) m/uL Hgb (13.0-17.5) gm/dL Hct (39.0-53.0) % Neutrophils # (1.3-7.7) k/uL Monocytes # (0-1.0) k/uL ABG pCO2 (35-45) mmHg ABG pO2 (83-108) mmHg ABG HCO3 (21-25) mmol/L ABG Total CO2 (19-24) mmol/L Sodium (137-145) mmol/L Chloride (98-107) mmol/L Carbon Dioxide (22-30) mmol/L BUN (9-20) mg/dL Creatinine (0.66-1.25) mg/dL Glucose (74-99) mg/dL POC Glucose (mg/dL) 148 H (70-110) mg/dL Calcium (8.4-10.2) mg/dL AST (17-59) U/L ALT (4-49) U/L Alkaline Phosphatase (38-126) U/L Total Protein (6.3-8.2) g/dL Albumin (3.5-5.0) g/dL Microbiology - Last 24 Hours (Table) 07/05/22 20:41 Gram Stain - Final Sputum Sputum Culture - Final Staphylococcus aureus 07/04/22 08:00 Blood Culture - Preliminary Blood No Growth after 96 hours 07/04/22 08:00 Blood Culture - Preliminary Blood No Growth after 96 hours 07/01/22 11:46 Blood Culture - Final Blood No Growth after 144 hours Assessment and Plan Plan: Septic shock, 2/2 aspiration pneumonia Acute hypoxic respiratory failure Sacral decub ulcer present of admission Anuric YUKI Acute lactic acidosis, with anion gap metabolic acidosis Hypokalemia -Continue mechanical ventilation and pressors - continue broad spectrum antibiotics - IV fluid resuscitation, bicarb - nephrology following Acute metabolic encepholopathy Parkinson's disease -continued sinemet, holding amantadine -EEG, no seizures -CT - osseous metastatic disease - likely metabolic Hypernatremia -resolved Hypervolemic hyponatremia present on admission, resolved Acute on chronic systolic Heart Failure Exacerbation - resolved Severe protein calorie malnutrition -PEG feeds Wide complex tachycardia, atrial fibrillation with RVR - not on cardizem due to septic shock , now on amio - cardiology following stage IV prostate cancer -Oncology consult -Also seen by palliative -Prognosis remains poor Chronic conditions: Type II DM, coronary artery disease -Continue with home meds -Insulin sliding scale with blood glucose monitoring DVT prophylaxis -lovenox CODE STATUS: Full Code Anticipated discharge date: pending clinical course Anticipated discharge place: pending clinical course Case was discussed with son at the bedside poor prognosis explained to him but he still wants to ''give his father a chance'. I think his son's judgment is impaired and unrealistic and creating unreasonable suffering for this patient. D/w RN to consult with the ethics committee of the [facility]
[2022-07-08 13:34] LABS: Glucose,Whole Blood 145 mg/dL (70-110)
[2022-07-08] MEDS ORDERED: LIDOCAINE 1% INJ 10MG/ML (30 ML VIAL-PF) SQ ONE (14:27)
[2022-07-08] MEDS ORDERED: HEPARIN SODIUM 1,000 UN/ML (10ML VL) MISCELLANE ONE (14:27)
--- NOTE | 2022-07-08 15:58 | P.PN ---
Subjective Progress Note Date: 07/08/22 07/08/2022: Patient was seen for a follow-up. Patient's daughter, son were present. Patient's nurse was also present. Per nurse report, he is slightly worse because he is needing higher dose of oxygen. Continues to be on Levophed 0.38 and vasopressin 0.04. Also on propofol 10 g per program per minute. Apparently the industrial relations officer do not believe patient is a candidate and hemodynamically stable for dialysis, however patient's son is requesting to resume dialysis. 07/07/2022: Patient's son and daughter were both present today. Patient continues to be comatose. He is on very low-dose propofol 10 mcg/g/m. Patient is on Levophed 0.5 g per program per minute and vasopressin at 0.04. His blood pressure is maintained at 125/45. Patient is also on vancomycin and Zosyn. WBC has gone up. No seizure-like activity. 07/06/2022: Patient was seen for a follow-up. Patient's daughter and son both were present today. Patient continues to be on propofol 10 g per program per minute. Patient also on very high-dose of levofed at 0.3 mcg/g/m. Patient also has atrial fibrillation with rapid ventricular rate, for which he received Lopressor, which decreased the blood pressure earlier. Also on NeoSynephrine. Patient is not twitching anymore. Patient's daughter has noticed that sometimes his forehead would twitch. 07/05/2022: Patient's son was present today. Patient apparently was transferred to ICU at 7:30 AM because of impending respiratory failure, agonal breathing. Patient was intubated at 8:30 AM today. Patient is on maximum dose of Mustapha- Synephrine. Patient currently on propofol 10 mcg/g/m. Patient will be receiving 1 unit of packed RBC. Patient said has numerous questions about his neurological and medical status. He wants to make sure patient receives his dose of Sinemet. I'll related to the nurse. Myoclonic jerk has remarkably reduce. 07/04/2022: Patient was seen for a follow-up. Patient's son was present today. Per his report, patient has become slightly worse today. He is breathing at 30/m. He is saturating at 91% on 15 L a minute of facemask. His myoclonic twitching has improved. Patient still very lethargic. 06/26/2022: Patient was seen for a follow-up. Patient's aunt was present today as well. Still not able to meet patient's son. Patient's aunt has mentioned that patient's daughter who lives in [place] wants comfort care, whereas the son wants full code, and all treatments possible. Patient appears more comfortable today. Less myoclonic jerks. Objective - Vital Signs Vital signs: Vital Signs Temp 97.4 F L 07/08/22 12:00 Pulse 64 07/08/22 14:30 Resp 23 07/08/22 14:30 BP 109/43 07/08/22 14:30 Pulse Ox 82 L 07/08/22 14:30 FiO2 100 07/08/22 15:24 Intake & Output 07/07/22 07/08/22 07/08/22 18:59 06:59 18:59 Intake Total 2843.839 3688.568 2259.771 Output Total 0 20 8 Balance 2843.839 3668.568 2251.771 Weight 78.6 kg 78.6 kg Intake: IV 1683 1989 1191 .9NS Pressure Line 33 39 21 0.9 120 Dextrose 5% in Water 1, 1650 1950 1050 000 ml @ 150 mls/hr IV . Q7H40M [facility] with Sodium Bicarb (1 Meq/ml) 150 ml Rx#:[id number] Intake, IV Titration 357.758 3393.568 688.771 Amount Amiodarone 360 mg In 200 Dextrose 5% in Water 200 ml @ 1 MG/MIN 33.333 mls/ hr IV .Q6H ONE Rx#: [id number] Insulin Regular 100 unit 22.1 34.043 36.576 In Sodium Chloride 0.9% 100 ml @ Titrate IV .Q0M [facility] Rx#:[id number] Norepinephrine 8 mg In 467.304 644.563 334.758 Sodium Chloride 0.9% 250 ml @ 0.03 MCG/KG/MIN 3. 425 mls/hr IV .Q24H [facility] Rx#:[id number] Vancomycin 1,000 mg In 250 Sodium Chloride 0.9% 250 ml @ 125 mls/hr IVPB ONCE ONE Rx#:[id number] Vasopressin 60 unit In 145.962 Sodium Chloride 0.9% 150 ml @ 0.03 UNITS/MIN 4.59 mls/hr IV .Q24H [facility] Rx#: [id number] propofoL 1,000 mg In 86.435 67.437 Empty Bag 1 bag @ 15 MCG/ KG/MIN 5.31 mls/hr IV . [id number] [facility] Rx#:[id number] Tube Feeding 495 585 270 Other 90 90 110 Output: Urine 0 20 8 Other: Voiding Method Indwelling Catheter Indwelling Catheter # Voids 0 # Bowel Movements 1 1 ABP, PAP, CO, CI - Last Documented Arterial Blood Pressure 117/40 - Exam Patient is comatose. GCS is 3. Patient does not respond to calling his name. No response to nailbed pressure. Patient is intubated, sedated with propofol 10 mcg/kg/m. Patient appears emaciated. Pupils are equal about 3 mm and nonreactive. Per nursing report, he is breathing over the ventilator. She has noticed that he does cough sometimes. He clenches his jaw with painful stimuli. No myoclonic jerks. Still has petichae in his arms. Patient has severe peripheral edema. Appears very pale, extremely sick. Patient has developed purplish discoloration of the fingertips and the toes. Some mottling noticed in the palms. Tone is decreased in the arms and legs. No rigidity. - Labs CBC & Chem 7: 07/08/22 04:00 07/08/22 04:00 Labs: Abnormal Lab Results - Last 24 Hours (Table) 07/07/22 07/07/22 07/07/22 Range/Units 17:07 18:20 19:09 WBC (3.8-10.6) k/uL RBC (4.30-5.90) m/uL Hgb (13.0-17.5) gm/dL Hct (39.0-53.0) % Neutrophils # (1.3-7.7) k/uL Monocytes # (0-1.0) k/uL ABG pCO2 (35-45) mmHg ABG pO2 (83-108) mmHg ABG HCO3 (21-25) mmol/L ABG Total CO2 (19-24) mmol/L Sodium (137-145) mmol/L Chloride (98-107) mmol/L Carbon Dioxide (22-30) mmol/L BUN (9-20) mg/dL Creatinine (0.66-1.25) mg/dL Glucose (74-99) mg/dL POC Glucose (mg/dL) 168 H 180 H 167 H (70-110) mg/dL Calcium (8.4-10.2) mg/dL AST (17-59) U/L ALT (4-49) U/L Alkaline Phosphatase (38-126) U/L Total Protein (6.3-8.2) g/dL Albumin (3.5-5.0) g/dL 07/07/22 07/07/22 07/07/22 Range/Units 19:58 20:52 21:59 WBC (3.8-10.6) k/uL RBC (4.30-5.90) m/uL Hgb (13.0-17.5) gm/dL Hct (39.0-53.0) % Neutrophils # (1.3-7.7) k/uL Monocytes # (0-1.0) k/uL ABG pCO2 (35-45) mmHg ABG pO2 (83-108) mmHg ABG HCO3 (21-25) mmol/L ABG Total CO2 (19-24) mmol/L Sodium (137-145) mmol/L Chloride (98-107) mmol/L Carbon Dioxide (22-30) mmol/L BUN (9-20) mg/dL Creatinine (0.66-1.25) mg/dL Glucose (74-99) mg/dL POC Glucose (mg/dL) 192 H 188 H 178 H (70-110) mg/dL Calcium (8.4-10.2) mg/dL AST (17-59) U/L ALT (4-49) U/L Alkaline Phosphatase (38-126) U/L Total Protein (6.3-8.2) g/dL Albumin (3.5-5.0) g/dL 07/07/22 07/08/22 07/08/22 Range/Units 22:55 00:01 00:56 WBC (3.8-10.6) k/uL RBC (4.30-5.90) m/uL Hgb (13.0-17.5) gm/dL Hct (39.0-53.0) % Neutrophils # (1.3-7.7) k/uL Monocytes # (0-1.0) k/uL ABG pCO2 (35-45) mmHg ABG pO2 (83-108) mmHg ABG HCO3 (21-25) mmol/L ABG Total CO2 (19-24) mmol/L Sodium (137-145) mmol/L Chloride (98-107) mmol/L Carbon Dioxide (22-30) mmol/L BUN (9-20) mg/dL Creatinine (0.66-1.25) mg/dL Glucose (74-99) mg/dL POC Glucose (mg/dL) 154 H 134 H 135 H (70-110) mg/dL Calcium (8.4-10.2) mg/dL AST (17-59) U/L ALT (4-49) U/L Alkaline Phosphatase (38-126) U/L Total Protein (6.3-8.2) g/dL Albumin (3.5-5.0) g/dL 07/08/22 07/08/22 07/08/22 Range/Units 02:04 02:59 03:58 WBC (3.8-10.6) k/uL RBC (4.30-5.90) m/uL Hgb (13.0-17.5) gm/dL Hct (39.0-53.0) % Neutrophils # (1.3-7.7) k/uL Monocytes # (0-1.0) k/uL ABG pCO2 (35-45) mmHg ABG pO2 (83-108) mmHg ABG HCO3 (21-25) mmol/L ABG Total CO2 (19-24) mmol/L Sodium (137-145) mmol/L Chloride (98-107) mmol/L Carbon Dioxide (22-30) mmol/L BUN (9-20) mg/dL Creatinine (0.66-1.25) mg/dL Glucose (74-99) mg/dL POC Glucose (mg/dL) 167 H 189 H 191 H (70-110) mg/dL Calcium (8.4-10.2) mg/dL AST (17-59) U/L ALT (4-49) U/L Alkaline Phosphatase (38-126) U/L Total Protein (6.3-8.2) g/dL Albumin (3.5-5.0) g/dL 07/08/22 07/08/22 07/08/22 Range/Units 04:00 04:00 04:53 WBC 22.1 H (3.8-10.6) k/uL RBC 2.49 L (4.30-5.90) m/uL Hgb 7.8 L (13.0-17.5) gm/dL Hct 24.0 L (39.0-53.0) % Neutrophils # 18.9 H (1.3-7.7) k/uL Monocytes # 1.7 H (0-1.0) k/uL ABG pCO2 (35-45) mmHg ABG pO2 (83-108) mmHg ABG HCO3 (21-25) mmol/L ABG Total CO2 (19-24) mmol/L Sodium 131 L (137-145) mmol/L Chloride 87 L (98-107) mmol/L Carbon Dioxide 17 L (22-30) mmol/L BUN 93 H (9-20) mg/dL Creatinine 3.21 H (0.66-1.25) mg/dL Glucose 166 H (74-99) mg/dL POC Glucose (mg/dL) 203 H (70-110) mg/dL Calcium 6.3 L* (8.4-10.2) mg/dL AST 1370 H (17-59) U/L ALT 264 H (4-49) U/L Alkaline Phosphatase 204 H (38-126) U/L Total Protein 3.6 L (6.3-8.2) g/dL Albumin 1.6 L (3.5-5.0) g/dL 07/08/22 07/08/22 07/08/22 Range/Units 05:41 05:45 06:52 WBC (3.8-10.6) k/uL RBC (4.30-5.90) m/uL Hgb (13.0-17.5) gm/dL Hct (39.0-53.0) % Neutrophils # (1.3-7.7) k/uL Monocytes # (0-1.0) k/uL ABG pCO2 29 L (35-45) mmHg ABG pO2 82 L (83-108) mmHg ABG HCO3 17 L (21-25) mmol/L ABG Total CO2 18 L (19-24) mmol/L Sodium (137-145) mmol/L Chloride (98-107) mmol/L Carbon Dioxide (22-30) mmol/L BUN (9-20) mg/dL Creatinine (0.66-1.25) mg/dL Glucose (74-99) mg/dL POC Glucose (mg/dL) 195 H 183 H (70-110) mg/dL Calcium (8.4-10.2) mg/dL AST (17-59) U/L ALT (4-49) U/L Alkaline Phosphatase (38-126) U/L Total Protein (6.3-8.2) g/dL Albumin (3.5-5.0) g/dL 07/08/22 07/08/22 07/08/22 Range/Units 08:03 09:16 10:11 WBC (3.8-10.6) k/uL RBC (4.30-5.90) m/uL Hgb (13.0-17.5) gm/dL Hct (39.0-53.0) % Neutrophils # (1.3-7.7) k/uL Monocytes # (0-1.0) k/uL ABG pCO2 (35-45) mmHg ABG pO2 (83-108) mmHg ABG HCO3 (21-25) mmol/L ABG Total CO2 (19-24) mmol/L Sodium (137-145) mmol/L Chloride (98-107) mmol/L Carbon Dioxide (22-30) mmol/L BUN (9-20) mg/dL Creatinine (0.66-1.25) mg/dL Glucose (74-99) mg/dL POC Glucose (mg/dL) 166 H 152 H 164 H (70-110) mg/dL Calcium (8.4-10.2) mg/dL AST (17-59) U/L ALT (4-49) U/L Alkaline Phosphatase (38-126) U/L Total Protein (6.3-8.2) g/dL Albumin (3.5-5.0) g/dL 07/08/22 07/08/22 Range/Units 11:32 13:32 WBC (3.8-10.6) k/uL RBC (4.30-5.90) m/uL Hgb (13.0-17.5) gm/dL Hct (39.0-53.0) % Neutrophils # (1.3-7.7) k/uL Monocytes # (0-1.0) k/uL ABG pCO2 (35-45) mmHg ABG pO2 (83-108) mmHg ABG HCO3 (21-25) mmol/L ABG Total CO2 (19-24) mmol/L Sodium (137-145) mmol/L Chloride (98-107) mmol/L Carbon Dioxide (22-30) mmol/L BUN (9-20) mg/dL Creatinine (0.66-1.25) mg/dL Glucose (74-99) mg/dL POC Glucose (mg/dL) 148 H 145 H (70-110) mg/dL Calcium (8.4-10.2) mg/dL AST (17-59) U/L ALT (4-49) U/L Alkaline Phosphatase (38-126) U/L Total Protein (6.3-8.2) g/dL Albumin (3.5-5.0) g/dL Microbiology - Last 24 Hours (Table) 07/05/22 20:41 Gram Stain - Final Sputum Sputum Culture - Final Staphylococcus aureus 07/04/22 08:00 Blood Culture - Preliminary Blood No Growth after 96 hours 07/04/22 08:00 Blood Culture - Preliminary Blood No Growth after 96 hours 07/01/22 11:46 Blood Culture - Final Blood No Growth after 144 hours Assessment and Plan Assessment: * Altered mental status, likely due to toxic metabolic encephalopathy, severe degree. Reasons multifactorial as mentioned below. * Ventilator-dependent respiratory failure, on mechanical ventilation. * Possible Sepsis with multiorgan dysfunction. * Hyponatremia, mild with sodium 131 * Acute renal insufficiency/failure on hemodialysis * Atrial fibrillation, not on anticoagulation * Elevated liver enzymes due to shock liver * Lactic acidosis * Acute pulmonary edema * Metastatic prostate cancer with bony metastasis * CAD * Diabetes * Hyperlipidemia * Hypertension * Parkinson's disease Plan: * Patient is comatose. Informed patient's son and daughter about current neurological status. Informed them of poor prognosis. They expressed understanding. * Discontinue amantadine * Continue Sinemet 25/100, 2 tablet 4 times a day. * Decrease gabapentin to 100 mg twice a day (from tid) due to renal failure * Treatment of other medical conditions as per critical care, IM and other specialties. * DVT prophylaxis:, Patient on Lovenox 30 Milgram subcu daily * Prognosis is extremely poor based upon multiple comorbid conditions including terminal prostate cancer. * Supportive care. Discussed with nursing staff. * Dr. Krzysztof Starkey Will resume neurology service in the morning.
[2022-07-08 16:00] LABS: Glucose,Whole Blood 148 mg/dL (70-110)
[2022-07-08] MEDS ORDERED: PIPERACILLIN-TAZOBACTAM 3.375 GM in SODIUM CHLORIDE 0.9% 100 ML IVPB SCH (16:00)
[2022-07-08 17:23] VITALS: RESP 26; TEMP 98.3
[2022-07-08 18:03] LABS: Glucose,Whole Blood 144 mg/dL (70-110)
[2022-07-08 18:05] VITALS: BP 109/68
[2022-07-08 19:19] VITALS: PULSE 63
[2022-07-08 19:23] LABS: Glucose,Whole Blood 147 mg/dL (70-110)
[2022-07-08] MEDS ORDERED: ATROPINE OPHTH SOLN 1% 5ML BTL SUBLINGUAL PRN (19:40)
[2022-07-08] MEDS ORDERED: MORPHINE SULFATE 4 MG/ML SYRINGE IV PRN (19:40)
[2022-07-08] MEDS ORDERED: MORPHINE SULFATE (100 MG/2 ML) 100 MG in SODIUM CHLORIDE 0.9% 100 ML IV SCH (19:45)
[2022-07-08] MEDS ORDERED: SCOPOLAMINE 1 MG/72 HR PATCH TRANSDERM SCH (19:45)
[2022-07-08] MEDS ORDERED: GABAPENTIN 100 MG CAP PO SCH (21:00)
--- NOTE | 2022-07-09 15:16 | P.DS ---
Providers Date of admission: 06/24/22 20:06 Expected date of discharge: 07/09/22 Attending physician: Josue Sher MD Consults: 06/24/22 20:06 Consult Physician Urgent Consulting Provider: Josh Pineda Consult Reason/Comments: acute hyponatremia Do you want consulting provider notified?: Yes 06/24/22 20:11 Consult Physician Urgent Consulting Provider: Taylor Beckett Consult Reason/Comments: acute encephalopathy, parkinsons, recent med changes Do you want consulting provider notified?: Yes 06/25/22 16:20 Consult Physician Routine Consulting Provider: Mahamed Naranjo Consult Reason/Comments: HF exacerbation Do you want consulting provider notified?: Yes 06/29/22 08:09 Consult Physician Routine Consulting Provider: Marcelino Lee Consult Reason/Comments: prostate cancer Do you want consulting provider notified?: Yes 06/29/22 08:10 Consult to Palliative Care Routine Consulting Provider: Malu Spencer Consult Reason/Comments: stage 4 prostate cancer, unable to eat Do you want consulting provider notified?: Yes 06/29/22 09:24 Consult Physician Urgent Consulting Provider: Brian Byrnes Consult Reason/Comments: evaluate for peg tube placement- fail barium/swallow Do you want consulting provider notified?: Yes 06/29/22 09:52 Consult Physician Routine Consulting Provider: Brian Byrnes Consult Reason/Comments: Needs PEG tube Do you want consulting provider notified?: Yes 07/05/22 07:50 Consult Physician Urgent Consulting Provider: Em Tucker Consult Reason/Comments: usability engineer management Do you want consulting provider notified?: Already Contacted 07/05/22 12:29 Consult Physician Urgent Consulting Provider: Alonzo Cornelius Consult Reason/Comments: reconsult for rhythm change Do you want consulting provider notified?: Yes 07/08/22 14:17 Consult Physician Urgent Consulting Provider: Hank Watkins Consult Reason/Comments: HD catheter Do you want consulting provider notified?: Yes Primary care physician: Lance Roman [facility] Course: 87-year-old male with a PMH of 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 He was brought into the emergency room on 06/24/22 by his son for altered mental status and failure to thrive. Per the son, the patient who has been on Sinemet for several years, recently had it discontinued by Dr. Luz and started on amantadine. The son reports that ever since the medication change, his father has not been quite himself. He reports that the patient has now developed worsening tremors and has been increasingly confusion and refusing to eat or drink much. At baseline, he reports that his father is oriented 3 and was able to use his walker to ambulate throughout the house and get himself out of bed and seat himself on the toilet. He reports that since the medication change, the patient is also suffered several falls leading to the bruising over his arms. The patient was not answering any questions appropriately. Head/cervical spine CT in the emergency room was consistent with metastatic osteoblastic disease. Pelvis x-ray also unremarkable aside from stable metastatic disease. Chest x-ray revealed pulmonary edema and pleural fluid, possible CHF. Right forearm x-ray was unremarkable. EKG reveals sinus rhythm with left axis deviation a 69 bpm with a left bundle branch block. Initially found to have severe hypervolemic hyponatremia likely in setting of CHF exacerbation. Patient was evaluated by cardiology and nephrology. Sodium improved with diuretics. Altered mental status likely secondary to severe hyponatremia versus worsening Parkinson's. Neurology was also following.. Amantadine was discontinued as it can potentially cause urinary retention and behavioral changes/confusion. Sinemet was continued. Patient had swallow evaluation, failed. Modified barium swallow also failed. Patient's son would prefer to eventually take him home with a feeding tube, the patient's daughter did not believe that is the right course. Feeding tube was eventually placed. Patient's condition was progressively getting worse and he did aspirate and his chest x-ray revealed extensive left lower lobe consolidation. This resulted in respiratory failure, was intubated and started on mechanical ventilation, he was then transferred to the ICU, was also started on pressors due to hypotension. He has a Edward catheter placed. Had YUKI with no urine output. He was also treated with IV fluids, bicarb gtt. Broad spectrum abx due to suspected aspiration pneumonia. He also had intermittent a-fib that Due to lack of progress and based on his very poor functional status, no further treatment was recommended, this was communicated with his family, verito agreed to make him comfortable however his son insisted that we ''give him the chance''. He was seen by palliative care and eventually ethics committee had to be involved due to futile situation. Many physicians talked to the son to make him aware of this futile situation. A decision was eventually made to take him off the vent and d/c the meds. He passed on 07/08 at 20:48. Time for discharge 36 min Patient Condition at Discharge: Serious Plan - Discharge Summary New Discharge Prescriptions: No Action Nitroglycerin Sl Tabs [Nitrostat] 0.4 mg SUBLINGUAL Q5M PRN PRN Reason: Chest Pain amLODIPine BESYLATE/BENAZEPRIL [amLODIPine BESYLATE/BENAZEPRIL 5-10 MG] 1 cap PO BID Isosorbide Mononitrate ER [Imdur] 30 mg PO DAILY Atorvastatin Calcium [Lipitor] 80 mg PO HS Carbidopa-Levodopa ER 50-200Mg [Sinemet CR 50-200 mg] 1 tab PO TID Gabapentin [Neurontin] 100 mg PO TID Enzalutamide [Xtandi] 160 mg PO HS DULoxetine HCL [Cymbalta] 20 mg PO DIRECTED sitaGLIPtin PHOS/metFORMIN HCL [Janumet Xr 50-1,000 mg Tablet] 0.5 tab PO BID hydrALAZINE HCL [Apresoline] 25 mg PO TID #90 tab Aspirin 81 mg PO DAILY #30 tab Metoprolol Tartrate [Lopressor] 25 mg PO BID Carboxymethylcellulos/Glycerin [Refresh Relieva 0.5-0.9% Drop] 1 drop BOTH EYES 5XD PRN PRN Reason: dry eyes Discharge Medication List Nitroglycerin Sl Tabs [Nitrostat] 0.4 mg SUBLINGUAL Q5M PRN 06/06/20 [History] amLODIPine BESYLATE/BENAZEPRIL [amLODIPine BESYLATE/BENAZEPRIL 5-10 MG] 1 cap PO BID 06/06/20 [History] Atorvastatin Calcium [Lipitor] 80 mg PO HS 03/07/21 [History] Isosorbide Mononitrate ER [Imdur] 30 mg PO DAILY 03/07/21 [History] Carbidopa-Levodopa ER 50-200Mg [Sinemet CR 50-200 mg] 1 tab PO TID 01/11/22 [History] Enzalutamide [Xtandi] 160 mg PO HS 01/11/22 [History] Gabapentin [Neurontin] 100 mg PO TID 01/11/22 [History] sitaGLIPtin PHOS/metFORMIN HCL [Janumet Xr 50-1,000 mg Tablet] 0.5 tab PO BID 05/25/22 [History] Aspirin 81 mg PO DAILY #30 tab 05/26/22 [Rx] hydrALAZINE HCL [Apresoline] 25 mg PO TID #90 tab 05/26/22 [Rx] Carboxymethylcellulos/Glycerin [Refresh Relieva 0.5-0.9% Drop] 1 drop BOTH EYES 5XD PRN 06/24/22 [History] DULoxetine HCL [Cymbalta] 20 mg PO DIRECTED 06/24/22 [History] Metoprolol Tartrate [Lopressor] 25 mg PO BID 06/24/22 [History] Follow up Appointment(s)/Referral(s): Lance Roman MD [Primary Care Provider] - 1-2 days [facility], [NON-STAFF] - [facility], [REFERRING] - (Tube feed will be delivered Monday, Jul 04 in the evening. ) Discharge Disposition: - Preliminary Cause of Preliminary Cause of : septic shock
== END 2022-07-08 23:27 | disposition expired | DRG 291 ==
LOC: EC 15:40 → 3SCARD 20:06 → 2SICU 07-05 08:00
PROVIDERS: ADMIT Internal Medicine; ATTEND Internal Medicine
PROC: 5A09457 Assistance with Respiratory Ventilation, 24-96 Consecutive Hours, Continuous Positive Airway Pressure (ICD-10-PCS; 2022-06-25)
PROC: 0DH63UZ Insertion of Feeding Device into Stomach, Percutaneous Approach (ICD-10-PCS; 2022-06-30)
PROC: 3E0G76Z Introduction of Nutritional Substance into Upper GI, Via Natural or Artificial Opening (ICD-10-PCS; 2022-06-30)
PROC: 5A1945Z Respiratory Ventilation, 24-96 Consecutive Hours (ICD-10-PCS; principal; 2022-07-05)
PROC: 4A133B1 Monitoring of Arterial Pressure, Peripheral, Percutaneous Approach (ICD-10-PCS; principal; 2022-07-05)
PROC: 02HV33Z Insertion of Infusion Device into Superior Vena Cava, Percutaneous Approach (ICD-10-PCS; principal; 2022-07-05)
PROC: 0BH17EZ Insertion of Endotracheal Airway into Trachea, Via Natural or Artificial Opening (ICD-10-PCS; principal; 2022-07-05)
PROC: 03HY32Z Insertion of Monitoring Device into Upper Artery, Percutaneous Approach (ICD-10-PCS; principal; 2022-07-05)
PROC: 4A133J1 Monitoring of Arterial Pulse, Peripheral, Percutaneous Approach (ICD-10-PCS; principal; 2022-07-05)
PROC: 3E043XZ Introduction of Vasopressor into Central Vein, Percutaneous Approach (ICD-10-PCS; 2022-07-05)
PROC: 0D9670Z Drainage of Stomach with Drainage Device, Via Natural or Artificial Opening (ICD-10-PCS; 2022-07-05)
DX: I11.0 Hypertensive heart disease with heart failure (principal); A41.9 Sepsis, unspecified organism; I50.23 Acute on chronic systolic (congestive) heart failure; E43 Unspecified severe protein-calorie malnutrition; G92.8 Other toxic encephalopathy; J69.0 Pneumonitis due to inhalation of food and vomit; J96.01 Acute respiratory failure with hypoxia; K72.00 Acute and subacute hepatic failure without coma; N17.0 Acute kidney failure with tubular necrosis; R65.21 Severe sepsis with septic shock; C79.51 Secondary malignant neoplasm of bone; E87.0 Hyperosmolality and hypernatremia; E87.1 Hypo-osmolality and hyponatremia; E87.21 Acute metabolic acidosis; F02.83 Dementia in other diseases classified elsewhere, unspecified severity, with mood disturbance; F02.84 Dementia in other diseases classified elsewhere, unspecified severity, with anxiety; I47.1 Supraventricular tachycardia; R64 Cachexia; G25.3 Myoclonus; G20 Parkinson's disease; C61 Malignant neoplasm of prostate; L89.152 Pressure ulcer of sacral region, stage 2; Z51.5 Encounter for palliative care; Z66 Do not resuscitate; D64.9 Anemia, unspecified; F32.A Depression, unspecified; E11.622 Type 2 diabetes mellitus with other skin ulcer; E86.0 Dehydration; R62.7 Adult failure to thrive; R13.10 Dysphagia, unspecified; E83.51 Hypocalcemia; E87.6 Hypokalemia; Z68.26 Body mass index [BMI] 26.0-26.9, adult; E78.5 Hyperlipidemia, unspecified; E87.5 Hyperkalemia; H54.7 Unspecified visual loss; H91.90 Unspecified hearing loss, unspecified ear; I25.5 Ischemic cardiomyopathy; I25.10 Atherosclerotic heart disease of native coronary artery without angina pectoris; I44.7 Left bundle-branch block, unspecified; I48.0 Paroxysmal atrial fibrillation; K59.00 Constipation, unspecified; L98.499 Non-pressure chronic ulcer of skin of other sites with unspecified severity; R29.6 Repeated falls; T50.2X5A Adverse effect of carbonic-anhydrase inhibitors, benzothiadiazides and other diuretics, initial encounter; S00.80XA Unspecified superficial injury of other part of head, initial encounter; S50.9 Unspecified superficial injury of elbow and forearm; S60.929A Unspecified superficial injury of unspecified hand, initial encounter; W19.XXXA Unspecified fall, initial encounter; Z91.81 History of falling; R32 Unspecified urinary incontinence; Z71.3 Dietary counseling and surveillance; Z74.01 Bed confinement status; Z79.82 Long term (current) use of aspirin; Z79.84 Long term (current) use of oral hypoglycemic drugs; Z79.899 Other long term (current) drug therapy; Z82.0 Family history of epilepsy and other diseases of the nervous system; Z95.5 Presence of coronary angioplasty implant and graft; Z63.5 Disruption of family by separation and divorce; Z85.828 Personal history of other malignant neoplasm of skin
CPT/HCPCS: 36415; 43246; 70450; 71045; 71046; 72125; 72170; 74018; 74230; 76770; 80048; 80053; 80202; 81001; 82040; 82140; 82306; 82330; 82550; 82570; 82803; 82805; 83036; 83605; 83735; 83880; 83930; 83935; 84100; 84145; 84295; 84300; 84443; 84450; 84460; 84484; 85025; 85027; 85610; 85730; 86850; 86900; 86901; 86920; 87040; 87070; 87077; 87186; 87205; 93005; 94002; 94003; 94660; 94760; 95816; 96360; 96361; 99291